=== PATIENT | male | born 1935 | race Caucasian/White ===

== ENCOUNTER 2017-01-14 03:57 | Inpatient (IN) | payer MEDICARE ==
[~2017-01-14] VITALS: Ht 180.3 cm; Wt 96.2 kg
[2017-01-14] VITALS (10 sets, daily range): BP systolic 137–191; BP diastolic 68–94
[~2017-01-14 03:57] MED LIST: AMD200T; AMIO200T2 PO; AMLO5TAB2 PO; AMOX1TAB11 PO; ASCO-262 PO; ASP81CT PO; ATEN1TAB3 PO; ATEN50TA PO; ATN50T PO; ATOR40TA PO; ATOR40TA70 PO; CHLO50TA2; CHOL400T PO; CLD600T; COUMADIN; CYAN10006 PO; DIGO125T PO; ENAL5TAB PO; FENO160T PO; FENO160T12 PO; GARLIC; GLIM2TAB PO; GLIM4TAB PO; INDM25C; INDOMETHACIN; IPRA3AMP INH; LACT1TAB9 PO; LEVO500T69 PO; MISO200T; NIAC1CAP PO; NIAC500T9 PO; NIACIN PO; OMG1KC; PNT40TEC PO; RIVA15TA PO; STRESS TAB; TAMS0.4C2 PO; THIA250T8 PO; TMSL.4C PO; VIT1CAPS9 PO; VITAMIN C PO; WARF-48 PO; WARF5TAB PO; WRF2.5T PO; WRF5T PO; [UNRECOGNIZED DRUG - CODE]
--- OUTSIDE RECORDS SUMMARY | 2017-01-14 04:03 | XMS REPORT | Continuity of Care Document ---
Author Author [facility] Organization [facility] Address Unknown Phone Unavailable Allergies Active Description Code Type Severity Reaction Onset Reported/Identified Relationship to Patient Clinical Status Yes NKANo Known Allergies NKA Miscellaneous Allergy Unknown N/ A 2007 Medications Problems Date Dx Coded Attending Type Code Diagnosis Diagnosed By 04/11/2011 Ot 911.4 INSECT BITE TRUNK 04/11/2011 Ot E000.8 OTHER EXTERNAL CAUSE STATUS 04/11/2011 Ot E849.0 ACCIDENT IN HOME 04/11/2011 Ot E906.4 NONVENOM ARTHROPOD BITE 06/23/2012 Ot 008.8 VIRAL ENTERITIS NOS 06/23/2012 Ot 038.9 SEPTICEMIA NOS 06/23/2012 Ot 041.49 OTHER AND UNSPECIFIED ESCHERICHIA COLI [ 06/23/2012 Ot 250.00 DIAB SMILEY WO COMPL, TYPE II OR UNSPEC TY 06/23/2012 Ot 276.51 DEHYDRATION 06/23/2012 Ot 287.49 OTHER SECONDARY THROMBOCYTOPENIA 06/23/2012 Ot 403.90 HYPTNSV CHR KID DIS, UNSPEC, W CHR KD ST 06/23/2012 Ot 427.31 ATRIAL FIBRILLATION 06/23/2012 Ot 490 BRONCHITIS NOS 06/23/2012 Ot 530.81 ESOPHAGEAL REFLUX 06/23/2012 Ot 585.9 CHRONIC KIDNEY DISEASE, UNSPECIFIED 06/23/2012 Ot 599.0 URIN TRACT INFECTION NOS 06/23/2012 Ot 720.0 ANKYLOSING SPONDYLITIS 06/23/2012 Ot 850.0 CONCUSSION W/O COMA 06/23/2012 Ot 924.11 CONTUSION OF KNEE 06/23/2012 Ot 995.91 SEPSIS 06/23/2012 Ot E000.8 OTHER EXTERNAL CAUSE STATUS 06/23/2012 Ot E849.6 ACCIDENT IN PUBLIC BLDG 06/23/2012 Ot E888.1 FALL STRIKING OBJECT NEC 06/23/2012 Ot E930.5 ADV EFF CEPHALOSPORIN 10/10/2013 FLAQUITA KELLY Ot 250.00 DIAB SMILEY WO COMPL, TYPE II OR UNSPEC TY 10/10/2013 FLAQUITA KELLY N Ot 272.4 HYPERLIPIDEMIA NEC/NOS 10/10/2013 FLAQUITA KELLY N Ot 287.5 THROMBOCYTOPENIA NOS 10/10/2013 FLAQUITA KELLY N Ot 403.90 HYPTNSV CHR KID DIS, UNSPEC, W CHR KD ST 10/10/2013 FLAQUITA KELLY N Ot 427.31 ATRIAL FIBRILLATION 10/10/2013 FLAQUITA KELLY N Ot 530.81 ESOPHAGEAL REFLUX 10/10/2013 FLAQUITA KELLY N Ot 585.9 CHRONIC KIDNEY DISEASE, UNSPECIFIED 10/10/2013 FLAQUITA KELLY N Ot V58.61 ANTICOAGULANTS,LT,CURRENT USE 10/10/2013 FLAQUITA KELLY N Ot V58.69 OTH MED,LT,CURRENT USE 08/19/2014 CALE DE LA GARZA DO Ot 427.31 ATRIAL FIBRILLATION 05/28/2016 Ot 250.00 DIAB SMILEY WO COMPL, TYPE II OR UNSPEC TY 05/28/2016 Ot 272.4 HYPERLIPIDEMIA NEC/NOS 05/28/2016 Ot 401.9 HYPERTENSION NOS 05/28/2016 Ot 786.09 RESPIRATORY ABNORM NEC 05/28/2016 Ot V58.61 ANTICOAGULANTS,LT,CURRENT USE 05/28/2016 Ot V58.69 OTH MED,LT,CURRENT USE 05/28/2016 TRISTON MOHR, LINNETTE Blount Ot 593.9 RENAL URETERAL DIS NOS 05/28/2016 TRISTON MOHR, LINNETTE Blount Ot 287.5 THROMBOCYTOPENIA NOS 05/28/2016 Ot 250.00 DIAB SMILEY WO COMPL, TYPE II OR UNSPEC TY 05/28/2016 Ot 272.4 HYPERLIPIDEMIA NEC/NOS 05/28/2016 Ot 287.5 THROMBOCYTOPENIA NOS 05/28/2016 Ot 403.90 HYPTNSV CHR KID DIS, UNSPEC, W CHR KD ST 05/28/2016 Ot 427.31 ATRIAL FIBRILLATION 05/28/2016 Ot 530.81 ESOPHAGEAL REFLUX 05/28/2016 Ot 585.9 CHRONIC KIDNEY DISEASE, UNSPECIFIED 05/28/2016 Ot V58.61 ANTICOAGULANTS,LT,CURRENT USE 05/28/2016 Ot V58.69 OTH MED,LT,CURRENT USE 05/28/2016 Ot 272.4 HYPERLIPIDEMIA NEC/NOS 05/28/2016 Ot 401.9 HYPERTENSION NOS 05/28/2016 Ot 427.31 ATRIAL FIBRILLATION 05/28/2016 OJ MOHR FAC, ALI FACP CCDS Ot 250.00 DIAB SMILEY WO COMPL, TYPE II OR UNSPEC TY 05/28/2016 OJ MOHR FAC, ALI FACP CCDS Ot 272.4 HYPERLIPIDEMIA NEC/NOS 05/28/2016 OJ MOHR FAC, ALI FACP CCDS Ot 401.9 HYPERTENSION NOS 05/28/2016 OJ MOHR [facility], ALI FACP CCDS Ot 427.31 ATRIAL FIBRILLATION 05/28/2016 OJ MOHR [facility], ALI FACP CCDS Ot V58.61 ANTICOAGULANTS,LT,CURRENT USE 05/28/2016 TRISTON MOHR, LINNETTE Blount Ot 284.19 OTHER PANCYTOPENIA 06/01/2016 ZAC GUPTA MD Ot A41.1 SEPSIS DUE TO OTHER SPECIFIED STAPHYLOCO 06/01/2016 ZAC GUPTA MD Ot D63.1 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 KIDNEY DISEASE 06/01/2016 ZAC GUPTA MD Ot E11.9 TYPE 2 DIABETES MELLITUS WITHOUT COMPLIC 06/01/2016 ZAC GUPTA MD Ot E78.5 HYPERLIPIDEMIA, UNSPECIFIED 06/01/2016 ZAC GUPTA MD Ot E86.0 DEHYDRATION 06/01/2016 ZAC GUPTA MD Ot H91.93 UNSPECIFIED HEARING LOSS, BILATERAL 06/01/2016 ZAC GUPTA MD Ot I08.1 RHEUMATIC DISORDERS OF BOTH MITRAL AND T 06/01/2016 ZAC GUPTA MD Ot I12.9 HYPERTENSIVE CHRONIC KIDNEY DISEASE W ST 06/01/2016 ZAC GUPTA MD Ot I48.0 PAROXYSMAL ATRIAL FIBRILLATION 06/01/2016 ZAC GUPTA MD Ot I65.23 OCCLUSION AND STENOSIS OF BILATERAL [place]ZM[place]N 06/01/2016 ZAC GUPTA MD Ot J18.9 PNEUMONIA, UNSPECIFIED ORGANISM 06/01/2016 ZAC GUPTA MD Ot M45.9 ANKYLOSING SPONDYLITIS OF UNSPECIFIED SI 06/01/2016 ZAC GUPTA MD Ot N17.9 ACUTE KIDNEY FAILURE, UNSPECIFIED 06/01/2016 ZAC GUPTA MD Ot N18.3 CHRONIC KIDNEY DISEASE, STAGE 3 (MODERAT 06/01/2016 ZAC GUPTA MD Ot R65.11 SIRS OF NON-INFECTIOUS ORIGIN W ACUTE OR 06/01/2016 ZAC GUPTA MD Ot S49.91XA UNSP INJURY OF RIGHT SHOULDER AND UPPER 06/01/2016 ZAC GUPTA MD Ot T67.0XXA HEATSTROKE AND SUNSTROKE, INITIAL ENCOUN 06/01/2016 ZAC GUPTA MD Ot W18.09XA STRIKING AGAINST OTH OBJECT W SUBSEQUENT 06/01/2016 ZAC GUPTA MD Ot 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 Visit Date/Time Discharge Status Pt. Type Provider Facility Loc./Unit Complaint [id number] 05/28/2016 05:25:00 2015 13:00:00 DIS Inpatient ZAC GUPTA MD [facility] [address] ACUTE ON CHRONIC RENAL FAILURE,FEVER, TIA [id number] 08/19/2014 17:49:00 2013 20:48:00 DIS Emergency HOLLI DOCALE [facility] ER [id number] 06/24/2014 10:22:00 2013 23:59:59 CLS Outpatient OJ MOHR FACC, RICHI VILLASEÑOR CCDS [facility] CARD [id number] 06/21/2014 11:37:00 2013 23:59:59 CLS Outpatient LINNETTE GOLDSTEIN MD [facility] LAB [id number] 07/12/2013 13:28:00 2012 00:01:00 DIS Outpatient FLAQUITA KELLY [facility] ONC [id number] 06/11/2013 07:33:00 2012 23:59:59 CLS Outpatient LINNETTE GOLDSTEIN MD [facility] RAD [id number] 06/06/2013 10:04:00 2012 23:59:59 CLS Outpatient LINNETTE GOLDSTEIN MD [facility] LAB [id number] 01/14/2017 03:59:00 ACT Emergency HOLLI CALE VALDIVIA [facility] ER POSS STROKE [id number] 06/28/2014 12:43:00 Document Registration [id number] 10/11/2013 00:00:00 Document Registration [id number] 06/20/2012 21:46:00 Document Registration [id number] 05/24/2011 11:36:00 Document Registration [id number] 04/11/2011 18:27:00 Document Registration
[2017-01-14 04:13] LABS: BASOPHILS % (AUTO) 1 % (0-10); EOSINOPHILS % (AUTO) 0 % (0-10); LYMPHOCYTES # (AUTO) 0.8 X 10^3 (1.0-4.0); LYMPHOCYTES % (AUTO) 14 % (12-44); MEAN CORPUSCULAR HEMOGLOBIN 30 PG (25-34); MEAN CORPUSCULAR HGB CONC 33 G/DL (32-36); MEAN CORPUSCULAR VOLUME 90 FL (80-99); MEAN PLATELET VOLUME 9.5 FL (7.4-10.4); MONOCYTES # (AUTO) 0.9 X 10^3 (0.0-1.0); MONOCYTES % (AUTO) 16 % (0-12); NEUTROPHILS % (AUTO) 70 % (42-75); PLATELET COUNT 145 10^3/uL (130-400); RED BLOOD COUNT 4.17 10^6/uL (4.35-5.85); RED CELL DISTRIBUTION WIDTH 15.3 % (10.0-14.5); WHITE BLOOD COUNT 5.6 10^3/uL (4.3-11.0)
--- NOTE | 2017-01-14 04:13 | ED General ---
General Chief Complaint: Neuro-Stroke Like Symptoms Stated Complaint: POSS STROKE Source of Information: Old Records, Spouse (JORDANE DOES ALL TALKING AND SHE IS VERY ANXIOUS AND SOMEWHAT LIMITED HISTORIAN ) Exam Limitations: Other (PT IS SOMNOLENT/LETHARGIC AND NOT TALKING OR FOLLOWING COMMANDS) History of Present Illness Time Seen by Provider: 04:00 Initial Comments PT ARRIVES VIA POV FROM HOME' PT WAS ABLE TO WALK TO CAR WITH FAMILY ASSIST. REPORTS THAT "HE WAS GOING AROUND AND AROUND IN THE BED WITH HIS ARMS AND HIS LEGS AND HE FELL OUT OF BED TWICE" HITTING HIS HEAD ON THE FLOOR TWICE THINKS THIS BEGAN AROUND 0100 THIS AM REPORTS THAT HE WENT TO BED THE NIGHT BEFORE LAST AND THEN HAS BEEN IN BED ALL DAY TODAY/YESTERDAY, GOT UP ONCE AT 1300 YESTERDAY AFTERNOON TO GO TO BATHROOM AND HAD LUNCH. WAS TALKING AT THAT TIME WOULD NOT TAKE HIS EVENING MEDICATIONS OR EAT DINNER AND NOT REALLY TALKING TONIGHT STATES HE HAS HAD WHEEZING FOR THE LAST 1 1/2 WEEKS AND IS NO DIFFERENT TODAY STATES HE SAW POLICYHOLDER INFORMATION CLERK DR. OLMOS YESTERDAY, AND SAW DR. GUPTA THE DAY BEFORE--BOTH FOR ROUTINE EXAMS. XARELTO AND ENALAPRIL WAS DC'D BY POLICYHOLDER INFORMATION CLERK ON 01/12/17-REPORTEDLY DUE TO POOR KIDNEY FUNCTION PER . NO OTHER MEDICATION CHANGES. NO RX'S OR TESTS DONE, PER . STATES THAT PT OCCASIONALLY FALLS--FELL A FEW MONTHS AGO AND INJURED LEFT SHOULDER, THEN HE FELL AGAIN AND FRACTURED HIS PELVIS. PCP: DR. GUPTA Allergies and Home Medications Allergies Coded Allergies: JOANANo Known Allergies (Verified Allergy, Unknown, 01/10/07) Home Medications Amiodarone HCl 200 Mg Tablet 200 MG PO DAILY (Reported) Amlodipine Besylate 5 Mg Tablet 10 MG PO DAILY (Reported) Ascorbate Calcium 500 Mg Tablet 500 MG PO DAILY (Reported) Aspirin 325 Mg Tablet 325 MG PO DAILY (Reported) Atenolol 50 Mg Tablet #30 50 MG PO DAILY Prescribed by: ZAC GUPTA on 06/01/16 0929 Atorvastatin Calcium 40 Mg Tablet 40 MG PO HS (Reported) Cholecalciferol (Vitamin D3) 400 Unit Tablet 400 UNIT PO DAILY (Reported) Cyanocobalamin (Vitamin B-12) 1,000 Mcg Tablet 1,000 MCG PO DAILY (Reported) Ergocalciferol (Vitamin D2) 50,000 Unit Capsule 50,000 UNIT PO WEEK (Reported) Fenofibrate 160 Mg Tablet 160 MG PO DAILY (Reported) Glimepiride 4 Mg Tablet 4 MG PO DAILY@1700 (Reported) Ipratropium/Albuterol Sulfate 3 Ml Ampul.neb #20 3 ML INH RTQ2H PRN PRN SOA Prescribed by: ZAC GUPTA on 06/01/16 0929 Niacin 500 Mg Tablet 500 MG PO DAILY@1700 (Reported) Tamsulosin HCl 0.4 Mg Cap.er.24h 0.4 MG PO DAILY@1700 (Reported) Vit C/Vit E/Lutein/Min/[place]-3 1 Each Capsule 1 CAP PO DAILY (Reported) Constitutional: other (PT UNABLE TO GIVE ANY INFORMATION. ) Past Paznsph-Nknqms-Izarji Hx Patient Social History Recent Foreign Travel: No Contact w/Someone Who Travel: No Recent Hopitalizations: Yes (pneumonia) Immunizations Up To Date Date of Pneumonia Vaccine: Aug 07, 2011 Date of Influenza Vaccine: Aug 17, 2014 Seasonal Allergies Seasonal Allergies: No Surgeries HX Surgeries: Yes (BILATERAL KNEE REPLACEMENTS) Surgeries: Appendectomy, Joint Replacement, Orthopedic Respiratory Hx Respiratory Disorders: Yes Respiratory Disorders: Chronic Bronchitis Cardiovascular Hx Cardiac Disorders: Yes Cardiac Disorders: Atrial Fibrillation, High Cholesterol, Hypertension Neurological Hx Neurological Disorders: No Reproductive System Hx Reproductive Disorders: No Genitourinary Hx Genitourinary Disorders: Yes Genitourinary Disorders: Benign Prostatic Hyperpl, Kidney Stones, Renal Failure Gastrointestinal Hx Gastrointestinal Disorders: No Musculoskeletal Hx Musculoskeletal Disorders: Yes Musculoskeletal Disorders: Arthritis Endocrine Hx Endocrine Disorders: Yes Endocrine Disorders: Diabetes, Non-Insulin dep HEENT HX ENT Disorders: Yes Hearing Impairment: Hard of Hearing Cancer Hx Cancer: No Psychosocial Hx Psychiatric Problems: No Integumentary HX Skin/Integumentary Disorder: No Blood Transfusions Hx Blood Disorders: Yes (reports has seen courtesy clerk for low wbc's,no diagnosis) Physical Exam Vital Signs Vital Sign - Last 12Hours 01/14/17 01/14/17 04:00 04:25 Temp 93.4 Pulse 58 Resp 24 B/P 198/97 Pulse Ox 100 O2 Delivery Nasal Cannula O2 Flow Rate 2 Capillary Refill : General Appearance: WD/WN Mild Distress Other (PT KEEPS EYES CLOSED, IS SOMNOLENT, WITH AUDIBLE WHEEZING. PT IS NOT TALKING OR FOLLOWING COMMANDS OR MOVING ANY EXTREMITIES) Neck: Supple Respiratory: Accessory Muscle Use Respiratory Distress (MILD) Wheezing ( AUDIBLE EXPIRATORY WHEEZING) Cardiovascular: Regular Rate, Rhythm Gastrointestinal: Soft Extremity: Pedal Edema (TRACE TO 1+ EDEMA BILATERALLY) Neurologic/Psychiatric: Other (MENTATION NOTED ABOVE) Skin: Normal Color Warm/Dry Other (MINOR ABRASION TO FORHEAD, AND LARGER ABRASION AND MILD SWELLING TO OCCIPUT. ) Progress/Results/Core Measures Results/Orders Lab Results Laboratory Tests Test 01/14/17 04:04 01/14/17 04:09 01/14/17 04:31 01/14/17 04:40 Range/Units Activated Partial Thromboplast Time 36 H 24-35 SEC Alanine Aminotransferase (ALT/SGPT) 22 0-55 U/L Albumin 3.0 L 3.2-4.5 G/DL Alkaline Phosphatase 51 40-136 U/L Anion Gap 11 5-14 MMOL/L Aspartate Amino Transf (AST/SGOT) 44 H 5-34 U/L B-Type Natriuretic Peptide 203.8 H <100.0 PG/ML BUN/Creatinine Ratio 11 Basophils # (Auto) 0.0 0.0-0.1 10^3/uL Basophils (%) (Auto) 1 0-10 % Blood Urea Nitrogen 28 H 7-18 MG/DL Calcium Level 8.8 8.5-10.1 MG/DL Carbon Dioxide Level 19 L 21-32 MMOL/L Chloride Level 113 H 98-107 MMOL/L Creatine Kinase MB 2.3 <6.6 NG/ML Creatinine 2.63 H 0.60-1.30 MG/DL Digoxin Level < 0.30 L 0.80-2.00 NG/ML Eosinophils # (Auto) 0.0 0.0-0.3 10^3/uL Eosinophils (%) (Auto) 0 0-10 % Estimat Glomerular Filtration Rate 24 Glucose Level 32 *L 70-105 MG/DL Hematocrit 37 L 40-54 % Hemoglobin 12.4 L 13.3-17.7 G/DL INR Comment 1.0 0.8-1.4 Lymphocytes # (Auto) 0.8 L 1.0-4.0 X 10^3 Lymphocytes (%) (Auto) 14 12-44 % Magnesium Level 1.6 L 1.8-2.4 MG/DL Mean Corpuscular Hemoglobin 30 25-34 PG Mean Corpuscular Hemoglobin Concent 33 32-36 G/DL Mean Corpuscular Volume 90 80-99 FL Mean Platelet Volume 9.5 7.4-10.4 FL Monocytes # (Auto) 0.9 0.0-1.0 X 10^3 Monocytes (%) (Auto) 16 H 0-12 % Neutrophils # (Auto) 4.0 1.8-7.8 X 10^3 Neutrophils (%) (Auto) 70 42-75 % Platelet Count 145 130-400 10^3/uL Potassium Level 3.8 3.6-5.0 MMOL/L Prothrombin Time 12.5 12.2-14.7 SEC Red Blood Count 4.17 L 4.35-5.85 10^6/uL Red Cell Distribution Width 15.3 H 10.0-14.5 % Sodium Level 143 135-145 MMOL/L Total Bilirubin 0.4 0.1-1.0 MG/DL Total Creatine Kinase 78 30-200 U/L Total Protein 6.2 L 6.4-8.2 G/DL Troponin I < 0.30 <0.30 NG/ML White Blood Count 5.6 4.3-11.0 10^3/uL Glucometer 35 *L 70-110 MG/DL Lactic Acid Level 0.74 0.50-2.00 MMOL/L Urine Bacteria NEGATIVE /HPF Urine Bilirubin NEGATIVE NEGATIVE Urine Casts NONE /LPF Urine Clarity CLEAR Urine Color YELLOW Urine Crystals NONE /LPF Urine Culture Indicated NO Urine Glucose (UA) NEGATIVE NEGATIVE Urine Ketones NEGATIVE NEGATIVE Urine Leukocyte Esterase NEGATIVE NEGATIVE Urine Mucus NEGATIVE /LPF Urine Nitrite NEGATIVE NEGATIVE Urine Protein 4+ NEGATIVE Urine RBC RARE /HPF Urine RBC (Auto) 2+ H NEGATIVE Urine Specific [place] 1.020 1.016-1.022 Urine Squamous Epithelial Cells RARE /HPF Urine Urobilinogen NORMAL NORMAL MG/DL Urine WBC NONE /HPF Urine pH 5 5-9 Test 01/14/17 04:47 Range/Units Glucometer 107 70-110 MG/DL Micro Results Microbiology 01/14/17 Influenza Types A,B Antigen (JUAN ALBERTO) - Final, Complete My Orders Orders-CALE DE LA GARZA DO Saline Lock/Iv-Start (01/14/17 04:05) Ekg Tracing (01/14/17 04:05) O2 (01/14/17 04:05) Monitor-Rhythm Ecg Trace Only (01/14/17 04:05) Ct Head/Face/Cervical Wo (01/14/17 04:05) BNP (01/14/17 04:05) Cbc With Automated Diff (01/14/17 04:05) Comprehensive Metabolic Panel (01/14/17 04:05) Creatine Kinase (01/14/17 04:05) Creatine Kinase Mb (01/14/17 04:05) Lactic Acid Analyzer (01/14/17 04:05) Magnesium (01/14/17 04:05) Protime With Inr (01/14/17 04:05) Partial Thromboplastin Time (01/14/17 04:05) Troponin I (01/14/17 04:05) Ua Culture If Indicated (01/14/17 04:05) Blood Culture (01/14/17 04:05) Influenza A And B Antigens (01/14/17 04:05) Chest 1 View, Ap/Pa Only (01/14/17 04:05) Albuterol/Ipra Inhalation Soln (Duoneb I (01/14/17 04:15) Dexamethasone Injection (Decadron Inject (01/14/17 04:15) Rt Request For Service (01/14/17 04:05) Svn Sm Volume Nebulizer Rt-Rfs (01/14/17 04:05) Methylprednisolone Sod Succ (Solu-Medrol (01/14/17 04:15) D50w (Emergency) Syringe (Dextrose 50% 5 (01/14/17 04:15) Accucheck Stat ONCE (01/14/17 04:09) Digoxin (01/14/17 04:19) Ekg Tracing (01/14/17 04:23) Accucheck Stat ONCE (01/14/17 04:43) Catheter(Urinary) Insert & Ass 03,15 (01/14/17 04:45) Nothing By Mouth (01/14/17 Breakfast) Accucheck Stat ONCE (01/14/17 04:51) Saline Lock/Iv-Start (01/14/17 04:51) Saline Lock/Iv-Start (01/14/17 04:51) Vital Signs-Stroke Q1H (01/14/17 04:51) Ct Head Wo-R/O Stroke (01/14/17 04:51) O2 (01/14/17 04:51) Intake & Output 06,14,22 (01/14/17 04:51) Dysphagia Screening Tool (01/14/17 04:51) Post Thrombolytic Adminstratio (01/14/17 04:51) Albuterol/Ipra Inhalation Soln (Duoneb I (01/14/17 05:00) Svn Sm Volume Nebulizer Rt-Rfs (01/14/17 04:51) Hansen Cath Insertion (01/14/17 04:58) Enalaprilat Injection (Vasotec Injection (01/14/17 05:30) Nitroglycerin Ointment (Nitrobid Ointme (01/14/17 05:30) Accucheck Stat ONCE (01/14/17 05:23) Enalaprilat Injection (Vasotec Injection (01/14/17 05:25) Ceftriaxone Injection (Rocephin Injectio (01/14/17 05:45) Medications Given in ED Current Medications Medications Dose Ordered Sig/Eloy Route Start Time Stop Time Status Last Admin Dose Admin Albuterol/ Ipratropium 3 ml ONCE ONCE INH 01/14/17 04:15 01/14/17 04:16 DC 01/14/17 04:40 3 ML Dexamethasone Sodium Phosphate 20 mg ONCE ONCE IH 01/14/17 04:15 01/14/17 04:16 DC 01/14/17 04:40 20 MG Dextrose 50 ml ONCE ONCE IV 01/14/17 04:15 01/14/17 05:44 DC 01/14/17 04:10 50 ML Enalaprilat 2.5 mg ONCE ONCE IV 01/14/17 05:30 01/14/17 05:31 DC 01/14/17 05:30 2.5 MG Methylprednisolone Sodium Succinate 125 mg ONCE ONCE IVP 01/14/17 04:15 01/14/17 04:16 DC 01/14/17 04:34 125 MG Nitroglycerin 1 inch ONCE ONCE TOP 01/14/17 05:30 01/14/17 05:31 DC 01/14/17 05:28 1 INCH Vital Signs/I&O Vital Sign - Last 12Hours 01/14/17 01/14/17 01/14/17 01/14/17 04:00 04:00 04:25 04:43 Temp 93.4 Pulse 58 Resp 24 B/P 198/97 Pulse Ox 100 100 O2 Delivery Nasal Cannula O2 Flow Rate 2 2 Progress Note : Progress Note ACCUCHECK 35--GIVEN 1 AMP D50 REPEAT ACCUCHECK 107 0500--PT NOW AWAKE, ALERT, ORIENTED X 3. CONFUSED TO EVENTS OF TONIGHT, PRIOR TO ARRIVAL. MOVING ALL EXTREMITIES WITH EQUAL STRENGTH IN ALL EXTREMITIES. P[T LATER DOES REPORT THAT HE REMEMBERS FALLING OUT OF BED. PT GIVEN DUO NEB TX FOLLOWED BY HOUR LONG NEB TX WITHOUT ANY SIGNIFICANT IMPROVEMENT IN WHEEZING. PT DENIES FEELING SHORT OF BREATH. NO DETERIORATION IN PT'S CONDITION DURING ER STAY ECG Initial ECG Impression Time: 04:06 Initial ECG Rate: 55 Initial ECG Rhythm: Normal Sinus (WITH ARTIFACT) Initial ECG Comparisson: Unchanged Diagnostic Imaging Comments CXR--NO ACUTE PROCESS, PENDING RADIOLOGIST REVIEW CT HEAD/MAXILLOFACIALS/CERVICAL SPINE--NO ACUTE PROCESS, CHRONIC CHANGES--PER [facility] VIA FAX @ [phone] Reviewed: Reviewed by Me Departure Communication Progress Notes 0530--SPOKE WITH DR. GUPTA, ACCEPTS PT FOR ADMIT. Impression Impression: Primary Impression: Altered mental status Additional Impressions: Hypoglycemia S/P FALL OUT OF BED X 2 HEAD CONTUSION X 2 Chronic renal failure NIDDM Hypothermia Chronic atrial fibrillation Uncontrolled hypertension Bronchitis Disposition: 09 ADMITTED INPATIENT Condition: Improved Departure-Patient Inst. Referrals: ZAC GUPTA MD (PCP/Family) Primary Care Physician CALE DE LA GARZA DO Jan 14, 2017 04:13
[2017-01-14] MEDS ORDERED: DEXAMETHASONE 4 MG/ML SDV (DECADRON) IH ONE (04:15)
[2017-01-14] MEDS ORDERED: DEXTROSE 50% 50 ML (IMS) SYR IV ONE (04:15)
[2017-01-14] MEDS ORDERED: RT-ALBUTEROL/IPRATROPIUM 3 ML (DUONEB) VIAL INH ONE ×2 (04:15→05:00)
[2017-01-14] MEDS ORDERED: methylPREDNISolone 125 MG (Solu-MEDROL) VIAL IVP ONE (04:15)
[2017-01-14 04:21] LABS: PROTHROMBIN TIME PATIENT 12.5 SEC (12.2-14.7)
[2017-01-14 04:32] LABS: ALANINE AMINOTRANSFERASE 22 U/L (0-55); ANION GAP 11 MMOL/L (5-14); ASPARTATE AMINO TRANSFERASE 44 U/L (5-34); BILIRUBIN,TOTAL 0.4 MG/DL (0.1-1.0); BLOOD UREA NITROGEN 28 MG/DL (7-18); BUN/CREATININE RATIO 11; CALCIUM 8.8 MG/DL (8.5-10.1); CARBON DIOXIDE 19 MMOL/L (21-32); CHLORIDE 113 MMOL/L (98-107); CREATINE KINASE 78 U/L (30-200); CREATININE SERUM 2.63 MG/DL (0.60-1.30); GFR ESTIMATED 24; MAGNESIUM 1.6 MG/DL (1.8-2.4); POTASSIUM 3.8 MMOL/L (3.6-5.0); SODIUM 143 MMOL/L (135-145); TOTAL PROTEIN 6.2 G/DL (6.4-8.2)
[2017-01-14 04:39] LABS: GLUCOSE 32 MG/DL (70-105); TROPONIN I < 0.30 NG/ML (<0.30)
[2017-01-14] MEDS ORDERED: ASPI-808 PO (04:41)
[2017-01-14] MEDS ORDERED: AMLO5TAB2 PO (05:10)
[2017-01-14] MEDS ORDERED: D50KC PO (05:10)
[2017-01-14 05:18] LABS: BILIRUBIN,URINE NEGATIVE (NEGATIVE); KETONES,URINE NEGATIVE (NEGATIVE); LEUKOCYTE ESTERASE ,URINE NEGATIVE (NEGATIVE); NITRITE,URINE NEGATIVE (NEGATIVE); PH,URINE 5 (5-9); PROTEIN,URINE 4+ (NEGATIVE); UROBILINOGEN,URINE NORMAL (NORMAL)
[2017-01-14] MEDS ORDERED: ENALAPRILAT 2.5 MG/2 ML (VASOTEC) VIAL IV ONE ×2 (05:25→05:30)
[2017-01-14 05:28] LABS: SQUAMOUS EPITHELIAL CELL,UR RARE /HPF
[2017-01-14] MEDS ORDERED: NITROGLYCERIN 2% OINT 1 GM UNIT DOSE PACKET TOP ONE (05:30)
[2017-01-14] MEDS ORDERED: cefTRIAXone INJECTION 1,000 MG in NS (IVPB) 50 ML IV ONE (05:45)
--- NOTE | 2017-01-14 07:09 | Diagnostic Imaging Report ---
INDICATION: CVA. Portable chest 4:33 AM FINDINGS: Heart size and pulmonary vascularity are normal. Lungs are clear. There are no effusions or pneumothoraces. IMPRESSION: Negative chest. Dictated by: Dictated on workstation # [id number]
[2017-01-14] MEDS ORDERED: RT-ALBUTEROL SULF 2.5 MG/3 ML PRE-MIX VIAL INH PRN (07:45)
--- NOTE | 2017-01-14 07:46 | Diagnostic Imaging Report ---
PROCEDURE: CT head, face, and cervical spine without contrast. TECHNIQUE: Multiple contiguous axial images were obtained through the head, neck, and facial bones without the use of intravenous contrast. Sagittal and coronal reformations through the cervical spine and facial bones were also performed. INDICATION: Patient is unresponsive. CT HEAD: The ventricles are normal in size, shape and position. There are no masses or hemorrhages. There are no extra-axial fluid collections. There is calcification in the brainstem which was present on exam from 05/28/2016. IMPRESSION: No acute abnormality seen in the head. No change from 05/28/2016. CT FACIAL BONES: Nasal bones are intact. Paranasal sinuses are intact with only small amounts of fluid seen in the maxillary sinuses. Zygomatic arches are intact. Orbital rims and pappas appear to be intact. Globes appear normal. Mandible appears to be grossly intact. Patient is edentulous. IMPRESSION: Negative facial bones. CT CERVICAL SPINE: Vertebral body height and alignment appear normal. There is diffuse ankylosis of the cervical spine. This is likely due to ankylosing spondylitis. There are no fractures seen. IMPRESSION: Ankylosing spondylitis of the cervical spine. No acute abnormality seen. Dictated by: Dictated on workstation # [id number]
[2017-01-14] MEDS ORDERED: guaiFENesin (MUCINEX) 600 MG TAB PO NR (09:15)
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
[2017-01-14] MEDS ORDERED: ATENOLOL 50 MG (TENORMIN) TAB PO NR (09:30)
[2017-01-14] MEDS ORDERED: amLODIPine 10 MG (NORVASC) TAB PO NR (09:30)
[2017-01-14] MEDS ORDERED: AMIODARONE 200 MG (CORDARONE) TAB PO NR (09:30)
[2017-01-14] MEDS ORDERED: methylPREDNISolone 125 MG (Solu-MEDROL) VIAL IV SCH (10:00)
[2017-01-14] MEDS ORDERED: CYAN250014 PO (10:00)
[2017-01-14] MEDS ORDERED: CALC-696 PO (10:00)
[2017-01-14] MEDS ORDERED: LORA10TA76 PO (10:00)
[2017-01-14] MEDS ORDERED: CHOL500044 PO (10:00)
[2017-01-14] MEDS ORDERED: OMEG1CAP24 PO (10:00)
[2017-01-14] MEDS: ASCORBIC ACID (VIT C) 500 MG TABLET PO SCH (10:11)
[2017-01-14] MEDS: MULTIVIT W/MINERALS TAB (THERAGRAN M) PO SCH (10:11)
[2017-01-14] MEDS: CYANOCOBALAMIN 500 MCG TAB (VITAMIN B-12) PO SCH (10:11)
[2017-01-14] MEDS: methylPREDNISolone 125 MG (Solu-MEDROL) VIAL IV SCH ×3 (10:12→22:02)
[2017-01-14] MEDS: NITROGLYCERIN 2% OINT 1 GM UNIT DOSE PACKET TOP SCH ×2 (11:25→18:12)
[2017-01-14] MEDS ORDERED: ENOXAPARIN 30 MG/0.3 ML (LOVENOX) SYR SC SCH (12:00)
[2017-01-14] MEDS ORDERED: ATEN50TA PO (12:51)
--- NOTE | 2017-01-14 13:57 | Physical Therapy Evaluation ---
PT Evaluation-General Medical Diagnosis Admission Date Jan 14, 2017 at 05:30 Medical Diagnosis: AMS Onset Date: Jan 14, 2017 Therapy Diagnosis Therapy Diagnosis: debility Height/Weight Height (Feet): 5 Height (Inches): 11.00 Weight (Pounds): 216 Weight (Ounces): 5.0 Precautions Precautions/Isolations: Fall Prevention, Standard Precautions Referral Physician: Chava Reason for Referral: Evaluation/Treatment Medical History Pertinent Medical History: Atrial Fib, Arthritis, CAD, COPD, DM, HTN, Renal Insufficiency Additional Medical History bilateral TKR Current History found patient flailing around in bed and fall out of bed. Blood sugar found to be 32, temp 93, HR 40's Reviewed History: Yes Social History Home: Single Level Current Living Status: Spouse Entry Into Home: Level Entry Prior/Core FIM Prior Level of Function Functional [place] Measure 0=Not Assessed/NA 4=Minimal Assistance 1=Total Assistance 5=Supervision or Setup 2=Maximal Assistance 6=Modified [place] 3=Moderate Assistance 7=Complete [place] Bed Mobility: 7 Transfers (B,C,W/C) (FIM): 7 Gait: 7 PT Evaluation-Current Subjective Patient and family agree to PT. No c/o. Pain Numeric Pain Scale: 0-No Pain Location: No Pain Reported Objective Patient Orientation: Normal For Age Problem Solving: Good Attachments: Hansen Catheter ROM/Strength ROM Lower Extremities bilateral LE WFL Strenght Lower Extremities bilateral LE WFL Integumentary/Posture Integumentary refer to nursing notes Bowel Incontinence: No Bladder Incontinence: Hansen Cath Posture trunk flexed posture Neuromuscular (Tone, Coordination, Reflexes) slightly diminished coordination, grossly intact Sensory Vision: Wears Glasses Hearing: Impaired Sensation Right Lower Extremit: Impaired Sensation Left Lower Extremity: Impaired Transfers Functional [place] Measure 0=Not Assessed/NA 4=Minimal Assistance 1=Total Assistance 5=Supervision or Setup 2=Maximal Assistance 6=Modified [place] 3=Moderate Assistance 7=Complete [place] Transfers (B, C, W/C) (FIM): 7 Scootin Rollin Supine to/from Sit: 7 Sit to/from Stand: 7 Gait Mode of Locomotion: Walk Anticipated Mode of Locomotion: Walk Gait (FIM): 7 Distance (FIM): 3=150 ft Distance: 350' Gait Level of Assist: 7 Gait Assistive Device: None Comments/Gait Description safe and functional Balance Sitting Static: Normal Sitting Dynamic: Normal Standing Static: Normal Standing Dynamic: Normal Assessment/Needs 82 y.o. male, is currently at independent PLOF with all gross motor skills and does not require skilled PT intervention at this time. Patient instructed to ambulate PRN with family or staff in hallway. Rehab Potential: Good PT Plan Treatment/Plan Treatment Plan: Discontinue PT Pt/Family Agrees w/Plan: Yes Discharge Recommendations Therapy D/C Recommendations: Home w/ Family Support Time/GCodes Time In: 1320 Time Out: 1335 Total Billed Treatment Time: 15 Total Billed Treatment 1 visit EVLowC 15 min LEE ANN VIRAMONTES PT Jan 14, 2017 13:56
[2017-01-14] MEDS: ALFUZOSIN HCL 10 MG TAB (UROXATRAL) PO SCH (16:37)
[2017-01-14] MEDS: NIACIN 500 MG TABLET PO SCH (16:37)
[2017-01-14] MEDS: RT-ALBUTEROL SULF 2.5 MG/3 ML PRE-MIX VIAL INH SCH (19:59)
[2017-01-14] MEDS: ATORVASTATIN 40 MG (LIPITOR) TABLET PO SCH (22:02)
[2017-01-14] MEDS: FENOFIBRATE 134 MG (LOFIBRA) CAPSULE PO SCH (22:02)
[2017-01-14] MEDS: guaiFENesin (MUCINEX) 600 MG TAB PO SCH (22:02)
[2017-01-15] VITALS (11 sets, daily range): BP systolic 131–169; BP diastolic 68–79
[2017-01-15] MEDS: NITROGLYCERIN 2% OINT 1 GM UNIT DOSE PACKET TOP SCH ×3 (00:48→12:00)
[2017-01-15] MEDS: methylPREDNISolone 125 MG (Solu-MEDROL) VIAL IV SCH (03:50)
[2017-01-15 04:26] LABS: BASOPHILS % (AUTO) 0 % (0-10); EOSINOPHILS % (AUTO) 0 % (0-10); LYMPHOCYTES # (AUTO) 0.3 X 10^3 (1.0-4.0); LYMPHOCYTES % (AUTO) 9 % (12-44); MEAN CORPUSCULAR HEMOGLOBIN 30 PG (25-34); MEAN CORPUSCULAR HGB CONC 33 G/DL (32-36); MEAN CORPUSCULAR VOLUME 90 FL (80-99); MEAN PLATELET VOLUME 10.1 FL (7.4-10.4); MONOCYTES # (AUTO) 0.2 X 10^3 (0.0-1.0); MONOCYTES % (AUTO) 6 % (0-12); NEUTROPHILS # (AUTO) 3.1 X 10^3 (1.8-7.8); NEUTROPHILS % (AUTO) 85 % (42-75); PLATELET COUNT 91 10^3/uL (130-400); RED BLOOD COUNT 3.43 10^6/uL (4.35-5.85); RED CELL DISTRIBUTION WIDTH 15.4 % (10.0-14.5); WHITE BLOOD COUNT 3.6 10^3/uL (4.3-11.0)
[2017-01-15 04:54] LABS: CREATININE SERUM 3.6 MG/DL (0.60-1.30); MAGNESIUM 1.8 MG/DL (1.8-2.4); POTASSIUM 4.3 MMOL/L (3.6-5.0)
[2017-01-15] MEDS ORDERED: cefTRIAXone INJECTION 1,000 MG in NS (IVPB) 50 ML IV SCH (06:00)
[2017-01-15] MEDS: MULTIVIT W/MINERALS TAB (THERAGRAN M) PO SCH (06:48)
[2017-01-15] MEDS: CYANOCOBALAMIN 500 MCG TAB (VITAMIN B-12) PO SCH (06:48)
[2017-01-15] MEDS: ASCORBIC ACID (VIT C) 500 MG TABLET PO SCH (06:48)
[2017-01-15] MEDS: RT-ALBUTEROL SULF 2.5 MG/3 ML PRE-MIX VIAL INH SCH ×2 (07:04→20:05)
[2017-01-15] MEDS: LACTATED RINGERS 1,000 ML IV SCH ×2 (08:22→18:53)
[2017-01-15] MEDS: AMIODARONE 200 MG (CORDARONE) TAB PO SCH (08:23)
[2017-01-15] MEDS: ATENOLOL 50 MG (TENORMIN) TAB PO SCH (08:23)
[2017-01-15] MEDS: guaiFENesin (MUCINEX) 600 MG TAB PO SCH ×2 (08:23→20:12)
[2017-01-15] MEDS: amLODIPine 10 MG (NORVASC) TAB PO SCH (08:23)
--- NOTE | 2017-01-15 09:09 | Diagnostic Imaging Report ---
INDICATION: Bronchitis. Comparison made with prior examination from 01/14/17. FINDINGS: There's cardiomegaly. There is mild venous congestion. There is a left upper lobe infiltrate suspect for pneumonia. There is no pleural effusion or pneumothorax. The mediastinum is unremarkable. IMPRESSION: Left upper lobe infiltrate suspect for pneumonia. Cardiomegaly and mild central pulmonary venous congestion. Dictated by: Dictated on workstation # [id number]
--- NOTE | 2017-01-15 11:17 | Progress Note (SOAP) ---
Subjective Subjective/Events-last exam cc: acute metabolic encephalopathy -82 yo M reports doing well. He was having a bowel movement this AM and on my return was eating breakfast- No complaints this AM. Review of Systems General: No Chills, No Night Sweats HEENT: No Head Aches Pulmonary: No Dyspnea, No Cough Cardiovascular: No: Chest Pain, Palpitations Gastrointestinal: No: Abdominal Pain, Nausea, Vomiting Genitourinary: No Dysuria Musculoskeletal: No: neck pain, shoulder pain Neurological: No: Numbness, Weakness Objective Exam Vital Signs Date Time Temp Pulse Resp B/P Pulse Ox O2 Delivery O2 Flow Rate FiO2 01/15/17 08:34 94 01/15/17 08:00 98.1 78 20 149/77 94 Room Air 01/15/17 07:04 95 01/15/17 07:00 71 01/15/17 06:00 68 18 144/72 93 01/15/17 05:00 69 18 143/71 95 01/15/17 04:00 96 01/15/17 04:00 69 19 135/72 93 01/15/17 03:00 71 21 135/68 93 01/15/17 02:00 75 18 141/74 92 01/15/17 01:00 77 20 147/72 92 01/15/17 00:32 75 01/15/17 00:00 80 20 148/74 93 01/15/17 00:00 96 01/14/17 23:00 82 19 137/83 94 01/14/17 22:00 81 20 166/73 01/14/17 21:00 81 19 163/68 01/14/17 20:00 97.5 77 13 148/72 01/14/17 20:00 96 01/14/17 19:20 80 01/14/17 19:00 77 28 148/84 01/14/17 18:00 85 22 140/80 01/14/17 16:25 96 01/14/17 16:25 99.4 01/14/17 16:00 82 18 182/88 96 01/14/17 13:44 93 01/14/17 12:00 93 I & O 01/15/17 07:00 Intake Total 1790 ml Output Total 1350 ml Balance 440 ml Capillary Refill : Less Than 3 Seconds General Appearance: No Apparent Distress WD/WN HEENT: Other (hard of hearing) Neck: Non Tender Respiratory: Chest Non Tender Lungs Clear Normal Breath Sounds No Accessory Muscle Use No Respiratory Distress Cardiovascular: Other (irregular rhythm, regular rate) Gastrointestinal: non tender soft Extremity: Other (MCBRIDE) Neurologic/Psychiatric: Alert Oriented x3 Normal Mood/Affect Skin: Warm/Dry Results Lab Laboratory Tests 01/14/17 16:38: Glucometer 277H 01/15/17 03:45: Anion Gap 11, BUN/Creatinine Ratio 13, Basophils # (Auto) 0.0, Basophils (%) ( Auto) 0, Blood Urea Nitrogen 48H, Calcium Level 8.0L, Carbon Dioxide Level 17L, Chloride Level 109H, Creatinine 3.60H, Eosinophils # (Auto) 0.0, Eosinophils (% ) (Auto) 0, Estimat Glomerular Filtration Rate 16, Glucose Level 319H, Hematocrit 31L, Hemoglobin 10.2L, Lymphocytes # (Auto) 0.3L, Lymphocytes (%) ( Auto) 9L, Magnesium Level 1.8, Mean Corpuscular Hemoglobin 30, Mean Corpuscular Hemoglobin Concent 33, Mean Corpuscular Volume 90, Mean Platelet Volume 10.1, Monocytes # (Auto) 0.2, Monocytes (%) (Auto) 6, Neutrophils # (Auto) 3.1, Neutrophils (%) (Auto) 85H, Phosphorus Level 4.0, Platelet Count 91L, Potassium Level 4.3, Red Blood Count 3.43L, Red Cell Distribution Width 15.4H, Sodium Level 137, White Blood Count 3.6L Microbiology 01/14/17 Influenza Types A,B Antigen (JUAN ALBERTO) - Final, Complete Assessment/Plan Assessment/Plan Assess & Plan/Chief Complaint 82 yo M Acute metabolic encephalopathy- likely multifactorial- definitely hypoglycemia - resolved. Severe hypoglycemia- d/c sulfonylurea- likely not cleared by kidneys efficiently Acute on Chronic kidney disease- stage IV- IVF LR @100cc/hr d/c'd lovenox, avoid MCKENNA, NSAIDS, contrast- baseline Cr 2.3 Hypertensive urgency- continue bp meds, hydralazine- much improved pancytopenia- monitor cbc atrial fibrillation- stable. CAD- stable COPD- on room air. d/c'd iv methylprednisolone- dexamethasone 10mg 01/14/17 Dispo: LR @100cc/hr; rechecking BMP at 1600hr- if improving will turn IVF to 75cc/hr- mental status much improved- if respiratory status stays stable with fluids and Cr improves will transfer to floor in AM. Clinical Quality Measures DVT/VTE Risk/Contraindication: Risk Factor Score Per Nursin RFS Level Per Nursing on Admit: 3=High Stroke: Date of last known well: Jan 13, 2017 GIANA WIN MD Jan 15, 2017 11:17
[2017-01-15] MEDS: inSUlin ASPART (NovoLOG) 1 UNIT/0.01 ML (CHARGE PER UNIT) SC SCH ×3 (12:20→22:00)
[2017-01-15] MEDS ORDERED: DEXAMETHASONE 4 MG TAB (DECADRON) PO NR (15:00)
[2017-01-15 16:16] LABS: CALCIUM 8.1 MG/DL (8.5-10.1); CREATININE SERUM 3.62 MG/DL (0.60-1.30); POTASSIUM 4.5 MMOL/L (3.6-5.0)
[2017-01-15] MEDS: NIACIN 500 MG TABLET PO SCH (17:44)
[2017-01-15] MEDS: ALFUZOSIN HCL 10 MG TAB (UROXATRAL) PO SCH (17:44)
[2017-01-15] MEDS: FENOFIBRATE 134 MG (LOFIBRA) CAPSULE PO SCH (20:12)
[2017-01-15] MEDS: ATORVASTATIN 40 MG (LIPITOR) TABLET PO SCH (20:12)
[2017-01-15] MEDS ORDERED: NS IV 500 ML 500 ML IV ONE (20:15)
[2017-01-15] MEDS ORDERED: guaiFENesin (MUCINEX) 600 MG TAB PO SCH (21:00)
[2017-01-16] VITALS: BP 152/76
[2017-01-16 04:00] VITALS: BP 139/60
[2017-01-16 04:36] LABS: BASOPHILS % (AUTO) 0 % (0-10); EOSINOPHILS % (AUTO) 0 % (0-10); LYMPHOCYTES # (AUTO) 0.4 X 10^3 (1.0-4.0); LYMPHOCYTES % (AUTO) 8 % (12-44); MEAN CORPUSCULAR HEMOGLOBIN 30 PG (25-34); MEAN CORPUSCULAR HGB CONC 33 G/DL (32-36); MEAN CORPUSCULAR VOLUME 90 FL (80-99); MEAN PLATELET VOLUME 10.6 FL (7.4-10.4); MONOCYTES # (AUTO) 0.3 X 10^3 (0.0-1.0); MONOCYTES % (AUTO) 5 % (0-12); NEUTROPHILS # (AUTO) 4.3 X 10^3 (1.8-7.8); NEUTROPHILS % (AUTO) 87 % (42-75); PLATELET COUNT 102 10^3/uL (130-400); RED CELL DISTRIBUTION WIDTH 14.9 % (10.0-14.5); WHITE BLOOD COUNT 4.9 10^3/uL (4.3-11.0)
[2017-01-16 04:54] LABS: CALCIUM 7.9 MG/DL (8.5-10.1); CREATININE SERUM 3.56 MG/DL (0.60-1.30); MAGNESIUM 1.8 MG/DL (1.8-2.4); PHOSPHORUS 4.1 MG/DL (2.3-4.7); POTASSIUM 4.7 MMOL/L (3.6-5.0)
[2017-01-16] MEDS: inSUlin ASPART (NovoLOG) 1 UNIT/0.01 ML (CHARGE PER UNIT) SC SCH ×4 (05:01→21:09)
[2017-01-16] MEDS: LACTATED RINGERS 1,000 ML IV SCH (05:56)
[2017-01-16] MEDS: ASCORBIC ACID (VIT C) 500 MG TABLET PO SCH (05:56)
[2017-01-16] MEDS: CYANOCOBALAMIN 500 MCG TAB (VITAMIN B-12) PO SCH (05:56)
[2017-01-16] MEDS: MULTIVIT W/MINERALS TAB (THERAGRAN M) PO SCH (05:56)
[2017-01-16] MEDS: RT-ALBUTEROL SULF 2.5 MG/3 ML PRE-MIX VIAL INH SCH ×4 (07:10→18:55)
[2017-01-16 08:00] VITALS: BP 135/59
[2017-01-16] MEDS: ATENOLOL 50 MG (TENORMIN) TAB PO SCH (08:11)
[2017-01-16] MEDS: amLODIPine 10 MG (NORVASC) TAB PO SCH (08:11)
[2017-01-16] MEDS: guaiFENesin (MUCINEX) 600 MG TAB PO SCH ×2 (08:11→21:08)
[2017-01-16] MEDS: AMIODARONE 200 MG (CORDARONE) TAB PO SCH (08:11)
--- NOTE | 2017-01-16 10:27 | Progress Note (SOAP) ---
Subjective Subjective/Events-last exam cc: hypoglycemia, acute on chronic kidney disease 82 yo M reports this AM he feels much better than admission and continues to improve. Ate nearly all his breakfast. Feels like he is breathing well. Does have a cough. No issues with urinating or BM. He has no questions or concerns. Review of Systems General: No Chills, No Night Sweats HEENT: No Head Aches, No Eye Pain Pulmonary: No Dyspnea, Cough Cardiovascular: No: Chest Pain, Palpitations Gastrointestinal: No: Abdominal Pain, Nausea, Vomiting Genitourinary: No Dysuria Musculoskeletal: No: shoulder pain Neurological: No: Numbness, Weakness Objective Exam Vital Signs Date Time Temp Pulse Resp B/P Pulse Ox O2 Delivery O2 Flow Rate FiO2 01/16/17 08:00 98.7 62 17 135/59 96 Room Air 01/16/17 07:20 93 01/16/17 07:13 93 01/16/17 07:00 61 01/16/17 04:00 65 23 139/60 91 Room Air 01/16/17 04:00 96 01/16/17 01:00 65 01/16/17 00:00 96 01/16/17 00:00 69 24 152/76 94 Room Air 01/15/17 20:05 94 01/15/17 20:00 67 17 131/68 92 Room Air 01/15/17 20:00 96 01/15/17 19:00 69 01/15/17 15:53 98.9 70 20 169/78 96 Room Air 01/15/17 15:08 96 01/15/17 13:00 77 01/15/17 12:21 94 01/15/17 12:21 98.2 68 18 155/79 94 Room Air I & O 01/16/17 07:00 Intake Total 3620 ml Output Total 1500 ml Balance 2120 ml Capillary Refill : Less Than 3 Seconds General Appearance: No Apparent Distress HEENT: PERRL/EOMI Neck: Non Tender Supple Respiratory: Chest Non Tender Rhonci (throughout- good air movement - easy breathing no apparent distress.) Wheezing Cardiovascular: Regular Rate, Rhythm Other (systolic murmur ii/vi) Gastrointestinal: normal bowel sounds non tender soft Extremity: Normal Range of Motion Non Tender Neurologic/Psychiatric: Alert Oriented x3 Normal Mood/Affect Skin: Warm/Dry Results Lab Laboratory Tests 01/15/17 12:18: Glucometer 273H 01/15/17 15:47: Anion Gap 12, BUN/Creatinine Ratio 15, Blood Urea Nitrogen 56H, Calcium Level 8.1L, Carbon Dioxide Level 15L, Chloride Level 109H, Creatinine 3.62H, Estimat Glomerular Filtration Rate 16, Glucose Level 133H, Potassium Level 4.5, Sodium Level 136 01/15/17 15:53: Glucometer 118H 01/15/17 23:13: Glucometer 219H 01/16/17 04:10: Anion Gap 9, BUN/Creatinine Ratio 18, Basophils # (Auto) 0.0, Basophils (%) ( Auto) 0, Blood Urea Nitrogen 63H, Calcium Level 7.9L, Carbon Dioxide Level 17L, Chloride Level 110H, Creatinine 3.56H, Eosinophils # (Auto) 0.0, Eosinophils (% ) (Auto) 0, Estimat Glomerular Filtration Rate 17, Glucose Level 184H, Hematocrit 29L, Hemoglobin 9.5L, Lymphocytes # (Auto) 0.4L, Lymphocytes (%) ( Auto) 8L, Magnesium Level 1.8, Mean Corpuscular Hemoglobin 30, Mean Corpuscular Hemoglobin Concent 33, Mean Corpuscular Volume 90, Mean Platelet Volume 10.6H, Monocytes # (Auto) 0.3, Monocytes (%) (Auto) 5, Neutrophils # (Auto) 4.3, Neutrophils (%) (Auto) 87H, Phosphorus Level 4.1, Platelet Count 102L, Potassium Level 4.7, Red Blood Count 3.20L, Red Cell Distribution Width 14.9H, Sodium Level 136, Uric Acid 8.6H, White Blood Count 4.9 Microbiology 01/14/17 Blood Culture - Preliminary, Resulted No growth 01/14/17 MRSA Screen - Final, Complete MRSA not isolated Assessment/Plan Assessment/Plan Assess & Plan/Chief Complaint 82 yo M Acute metabolic encephalopathy- likely multifactorial- definitely hypoglycemia - resolved. Severe hypoglycemia- d/c sulfonylurea- likely not cleared by kidneys efficiently- normal blood sugars. Acute on Chronic kidney disease- stage IV- IVF NS @100cc/hr d/c'd lovenox, avoid MCKENNA, NSAIDS, contrast- baseline Cr 2.3- Cr 3.5 this AM- starting to trend down. rechecking BMP Uric acid 8.4 Hypertensive urgency- continue bp meds, hydralazine- much improved pancytopenia- monitor cbc atrial fibrillation- stable. CAD- stable COPD- on room air. dexamethasone 10mg 01/14/17 - iv methylprednisolone 40mg BID IV- Dispo: NS @100cc/hr; rechecking BMP at 1600hr- Uric acid elevated- still needs IVF. Appears Cr has peaked and now is starting to come back down- UOP improving , kidneys seem to be recovering. Monitor respiratory status- Transfer to floor. Clinical Quality Measures DVT/VTE Risk/Contraindication: Risk Factor Score Per Nursin RFS Level Per Nursing on Admit: 3=High Stroke: Date of last known well: Jan 13, 2017 GIANA WIN MD Jan 16, 2017 10:27
[2017-01-16] MEDS: methylPREDNISolone 40 MG/ML (Solu-MEDROL) VIAL IV SCH ×2 (11:16→21:07)
[2017-01-16] MEDS: NS IV 1000 ML 1,000 ML IV SCH ×3 (11:16→20:59)
[2017-01-16 12:26] VITALS: BP 154/72
--- NOTE | 2017-01-16 12:51 | Diagnostic Imaging Report ---
INDICATION: Bronchitis. TECHNIQUE: Single view chest 5:40 AM. CORRELATION STUDY: 01/15/2017 FINDINGS: Heart size enlarged. Vasculature is slightly prominent but appears to be less severe from prior study. The previously noted infiltrate left upper lobe has improved and essentially resolved on followup. Lung blum overall generally clear. IMPRESSION: 1. Cardiac enlargement. Vasculature is improved since prior study. 2. Previously noted infiltrate-like density over the left upper lobe is essentially resolved. Dictated by: Dictated on workstation # [id number]
[2017-01-16 16:00] VITALS: BP 165/80
[2017-01-16 16:47] LABS: CALCIUM 8.1 MG/DL (8.5-10.1); CREATININE SERUM 3.51 MG/DL (0.60-1.30)
[2017-01-16] MEDS: ALFUZOSIN HCL 10 MG TAB (UROXATRAL) PO SCH (16:56)
[2017-01-16] MEDS: NIACIN 500 MG TABLET PO SCH (16:56)
[2017-01-16 20:00] VITALS: BP 125/67
[2017-01-16] MEDS: ATORVASTATIN 40 MG (LIPITOR) TABLET PO SCH (21:08)
[2017-01-16] MEDS: FENOFIBRATE 134 MG (LOFIBRA) CAPSULE PO SCH (21:08)
[2017-01-17 00:10] VITALS: BP 167/78
[2017-01-17 01:06] VITALS: BP 164/75
[2017-01-17 04:41] VITALS: BP 144/84
[2017-01-17 05:50] LABS: BASOPHILS % (AUTO) 0 % (0-10); EOSINOPHILS % (AUTO) 0 % (0-10); LYMPHOCYTES # (AUTO) 0.3 X 10^3 (1.0-4.0); LYMPHOCYTES % (AUTO) 8 % (12-44); MEAN CORPUSCULAR HEMOGLOBIN 30 PG (25-34); MEAN CORPUSCULAR HGB CONC 33 G/DL (32-36); MEAN CORPUSCULAR VOLUME 90 FL (80-99); MEAN PLATELET VOLUME 10.4 FL (7.4-10.4); MONOCYTES # (AUTO) 0.2 X 10^3 (0.0-1.0); MONOCYTES % (AUTO) 4 % (0-12); NEUTROPHILS # (AUTO) 3.3 X 10^3 (1.8-7.8); NEUTROPHILS % (AUTO) 88 % (42-75); PLATELET COUNT 108 10^3/uL (130-400); RED BLOOD COUNT 3.41 10^6/uL (4.35-5.85); RED CELL DISTRIBUTION WIDTH 14.8 % (10.0-14.5); WHITE BLOOD COUNT 3.7 10^3/uL (4.3-11.0)
[2017-01-17] MEDS: inSUlin ASPART (NovoLOG) 1 UNIT/0.01 ML (CHARGE PER UNIT) SC SCH (06:00)
[2017-01-17 06:05] LABS: CALCIUM 7.9 MG/DL (8.5-10.1); CREATININE SERUM 3.6 MG/DL (0.60-1.30); PHOSPHORUS 4.9 MG/DL (2.3-4.7); POTASSIUM 4.9 MMOL/L (3.6-5.0)
[2017-01-17] MEDS: CYANOCOBALAMIN 500 MCG TAB (VITAMIN B-12) PO SCH (06:44)
[2017-01-17] MEDS: ASCORBIC ACID (VIT C) 500 MG TABLET PO SCH (06:44)
[2017-01-17] MEDS: MULTIVIT W/MINERALS TAB (THERAGRAN M) PO SCH (06:48)
[2017-01-17] MEDS: NS IV 1000 ML 1,000 ML IV SCH (07:08)
[2017-01-17] MEDS: RT-ALBUTEROL SULF 2.5 MG/3 ML PRE-MIX VIAL INH SCH ×2 (07:29→10:25)
[2017-01-17 07:49] VITALS: BP 171/77
[2017-01-17] MEDS: amLODIPine 10 MG (NORVASC) TAB PO SCH (08:11)
[2017-01-17] MEDS: guaiFENesin (MUCINEX) 600 MG TAB PO SCH (08:11)
[2017-01-17] MEDS: methylPREDNISolone 40 MG/ML (Solu-MEDROL) VIAL IV SCH (08:12)
[2017-01-17] MEDS: ATENOLOL 50 MG (TENORMIN) TAB PO SCH (08:12)
[2017-01-17] MEDS: AMIODARONE 200 MG (CORDARONE) TAB PO SCH (08:12)
[2017-01-17] MEDS ORDERED: amLODIPine 5 MG (NORVASC) TAB PO SCH (09:00)
--- NOTE | 2017-01-17 09:17 | Discharge Summary ---
Diagnosis/Chief Complaint Date of Admission Jan 14, 2017 at 05:30 Date of Discharge Discharge Date: Jan 17, 2017 Admission Diagnosis Admission Diagnosis SEVERE HYPOGLYCEMIC EPISODE HYPERTENSIVE URGENCY CHRONIC RENAL FAILURE - STAGE 4 RENAL FAILURE ATRIAL FIBRILLATION FALLING EPISODE AT HOME CONFUSION/MENTAL STATUS CHANGE - TRANSIENT CORONARY ARTERY DISEASE COPD Discharge Diagnosis SEVERE HYPOGLYCEMIC EPISODE HYPERTENSIVE URGENCY CHRONIC RENAL FAILURE - STAGE 4 RENAL FAILURE ATRIAL FIBRILLATION FALLING EPISODE AT HOME CONFUSION/MENTAL STATUS CHANGE - TRANSIENT CORONARY ARTERY DISEASE COPD Reason Hospital Visit PT IS AN 82 Y/O MALE WHO IS KNOWN TO ME FROM CLINIC. HIS REPORTS THAT YESTERDAY HE DID NOT GET UP UNTIL AROUND NOON - NOT UNUSUAL FOR HIM. SHE REPORTS THAT HE ATE A GOOD LUNCH, TOOK HIS MEDICATIONS, AND THEN SHORTLY THEREAFTER HE WENT TO BED. SHE REPORTS THAT AT AROUND 6PM, HE STARTED FLAILING AROUND IN THE BED, LITTERALLY MOVING HIS BODY ALL OVER THE BED (SPINNING AROUND) UNTIL HIS LEGS WERE FALLING OFF THE SIDE OF THE BED, SHE GOT HIM STRAIGHTENED BACK UP, THEN HE FELL OUT OF BED. SHE STATES THAT SHE LEFT HIM ON THE GROUND FOR ABOUT AN HOUR, PUT A PILLOW UNDER HIS HEAD, THEN HE GOT UP, SAID, "WHAT AM I DOING DOWN HERE", THEN HE GOT BACK INTO BED. HE STARTED MOVING AROUND ALL OVER THE BED AGAIN AND FELL OUT, SHE THEN GOT THE FAMILY TO HELP GET HIM UP AND HE WAS CLAMMY, CONFUSED AND SHE TOOK HIM TO THE EMERGENCY DEPT. HE WAS FOUND TO HAVE A BLOOD SUGAR OF 32. HIS DAUGHTER STATES THAT HE DID NOT CHECK HIS FSBS YESTERDAY AT ALL AND THAT IS UNUSUAL FOR HIM. SHE ALSO STATES THAT THE LAST TIME HE WAS DISCHARGED FOR A SHORT STAY IN THE HOSPITAL, HE WAS DISCHARGED WITH NEBULIZER TREATMENTS, BUT NO NEBULIZER WAS PRESCRIBED. SHE THINKS THAT HE WOULD BENEFIT FROM BREATHING TREATMENTS AT HOME. Discharge Summary Discharge Physical Examination Allergies: Coded Allergies: No Known Drug Allergies (Unverified , 01/14/17) Vitals & I&Os Vital Signs Date Time Temp Pulse Resp B/P Pulse Ox O2 Delivery O2 Flow Rate FiO2 01/17/17 07:49 96.1 62 171/77 95 Room Air 01/17/17 04:41 22 01/16/17 20:15 2.00 General Appearance: Alert, Oriented X3, Cooperative, No Acute Distress HEENT: Atraumatic, PERRLA Respiratory: Other (wheezing throughout) Cardiovascular: Regular Rate Abdominal: Normal Bowel Sounds, Soft Extremities: No Clubbing Skin: No Rashes, No Breakdown Neuro: Normal Speech, Strength at 5/5 X4 Ext, Cranial Nerves 3-12 NL Psych/Mental Status: Mental Status NL, Mood NL Hospital Course SEVERE HYPOGLYCEMIC EPISODE HYPERTENSIVE URGENCY CHRONIC RENAL FAILURE - STAGE 4 RENAL FAILURE ATRIAL FIBRILLATION FALLING EPISODE AT HOME CONFUSION/MENTAL STATUS CHANGE - TRANSIENT CORONARY ARTERY DISEASE COPD PT STARTED ON CLEAR LIQUIDS - THEN ADVANCED DIET TO 1800KCAL DIET. HYPOGLYCEMIA WITH CURRENT DX OF DM - STOPPED HOME MEDICATIONS FOR DIABETES. - MONITOR FSBS, DISCUSSED APPROPRIATE SPACING OF MEDICATIONS PT HAS BEEN TAKING HIS MEDS AT NOON AND 7PM. PT TO CHECK FSBS THREE TIMES DAILY X 10 DAYS, BRING TO OFFICE IN TEN DAYS - MAY NEED TO CONSIDER AN INJECTABLE MEDICATION/INSULIN OUTPATIENT. HTN - HYPERTENSIVE URGENCY - INCREASE ANTIHYPERTENSIVES - STARTED ON HYDRALAZINE, - DECREASE NORVASC BACK DOWN TO 5MG, INCREASE HYDRALAZINE FROM 10MG QID TO 25MG TID. CHRONIC RENAL FAILURE - INCREASED CREATININE AT 3.6 - PT IS ABOUT 1 POINT ABOVE NORMAL - WILL DISCHARGE PT TO HOME, CHECK LABS ON TUESDAY - - SUPPORTIVE CARE, ADJUST MEDICATIONS ACCORDINGLY. - WILL SEND COPY OF LABS TO [facility] INSIDE [facility]INDER DR. OLMOS. MENTAL STATUS CHANGES - IMPROVED/RESOLVED. COPD - STARTED ON SCHEDULED BREATHING TREATMENTS, MUCINEX, PD AND C TO BE TAUGHT TO PT'S . PT ALSO ON STEROIDS - STOP STEROIDS - CONTINUE WITH BREATHING TREATMENTS OUTPATIENT. Pending Labs Laboratory Tests 01/17/17 05:28: Anion Gap 10, BUN/Creatinine Ratio 19, Basophils # (Auto) 0.0, Basophils (%) ( Auto) 0, Blood Urea Nitrogen 70, Calcium Level 7.9, Carbon Dioxide Level 16, Chloride Level 113, Creatinine 3.60, Eosinophils # (Auto) 0.0, Eosinophils (%) ( Auto) 0, Estimat Glomerular Filtration Rate 16, Glucose Level 184, Hematocrit 31 , Hemoglobin 10.1, Lymphocytes # (Auto) 0.3, Lymphocytes (%) (Auto) 8, Magnesium Level 2.0, Mean Corpuscular Hemoglobin 30, Mean Corpuscular Hemoglobin Concent 33, Mean Corpuscular Volume 90, Mean Platelet Volume 10.4, Monocytes # (Auto) 0.2, Monocytes (%) (Auto) 4, Neutrophils # (Auto) 3.3, Neutrophils (%) (Auto) 88, Phosphorus Level 4.9, Platelet Count 108, Potassium Level 4.9, Red Blood Count 3.41, Red Cell Distribution Width 14.8, Sodium Level 139, White Blood Count 3.7 Discharge Condition at discharge improved Instructions to patient/family Please see electonic discharge instructions given to patient. Discharge Medications Reviewed and agree with Discharge Medication list on patient's Discharge Instruction sheet Clinical Quality Measures DVT/VTE Risk/Contraindication: Risk Factor Score Per Nursin RFS Level Per Nursing on Admit: 3=High Stroke: Date of last known well: Jan 13, 2017 ZAC GUPTA MD Jan 17, 2017 09:17
[2017-01-17] MEDS ORDERED: HYDR-3922 PO (09:23)
[2017-01-17] MEDS ORDERED: ALBU2.5V4 INH (09:23)
[2017-01-17] MEDS ORDERED: NEBU1KIT3 MC (09:23)
[2017-01-17] MEDS ORDERED: AMLO10TA2 PO (09:23)
[2017-01-17] MEDS ORDERED: [UNRECOGNIZED DRUG - CODE] MC (09:23)
[2017-01-17] MEDS ORDERED: BREO ELLIPTA IH SCH (09:24)
--- NOTE | 2017-01-17 09:27 | Discharge Inst-Complex ---
PDI Med Rec & Follow Up Appt. New Medications: Mucus Clearing Device (Aerobika) 1 Each Each 1 EACH QID USE WITH NEBULIZER MACHINE Shortness of Breath #1 Nebulizer (Compact Compressor Nebulizer) 1 Each Each 1 EACH QID USE WITH NEBULIZER MEDICATION FOR DECREASE IN WHEEZING, IMPROVED BREATHING Shortness of Breath #1 Albuterol Sulfate (Albuterol Sulfate) 2.5 Mg/3 Ml Vial.neb 2.5 MG INH RTQID #120 Ref 6 INHALER Amlodipine Besylate (Amlodipine Besylate) 10 Mg Tablet 5 MG PO DAILY #30 Ref 6 TAB Hydralazine HCl (Hydralazine HCl) 10 Mg Tablet 25 MG PO Q8HR #90 Ref 6 TAB Continued Medications: Amiodarone HCl (Amiodarone HCl) 200 Mg Tablet 200 MG PO DAILY Ascorbate Calcium (Vitamin C) 500 Mg Tablet 500 MG PO DAILY TAB Aspirin (Aspirin) 325 Mg Tablet 325 MG PO DAILY TAB Atenolol (Atenolol) 50 Mg Tablet 50 MG PO DAILY TAB Atorvastatin Calcium (Atorvastatin Calcium) 40 Mg Tablet 40 MG PO HS LAST FILLED 09/05/16 #90 Calcium Citrate/Vitamin D3 (Citracal + D Maximum Caplet) 1 Each Tablet 1 EACH PO BID TAB Cholecalciferol (Vitamin D3) (Vitamin D3) 5,000 Unit Tablet 5000 UNIT PO DAILY TAB Cyanocobalamin (Vitamin B-12) (Vitamin B-12) 1,000 Mcg Tablet 1000 MCG PO DAILY TAB Fenofibrate (Fenofibrate) 160 Mg Tablet 160 MG PO DAILY Loratadine (Claritin) 10 Mg Tablet 10 MG PO DAILY TAB Niacin (Niacin) 500 Mg Tablet 500 MG PO DAILY@1700 TAB Tamsulosin HCl (Tamsulosin HCl) 0.4 Mg Cap.er.24h 0.4 MG PO DAILY@1700 LAST FILLED 09/13/16 #90 Vit C/Vit E/Lutein/Min/[place]-3 (Ocuvite Softgel) 1 Each Capsule 1 CAP PO DAILY CAP Discontinued Medications: Amlodipine Besylate (Amlodipine Besylate) 5 Mg Tablet 10 MG PO DAILY TAB Prescription: Transmitted to Pharmacy Patient Instructions: GET LABS ON 01/21/17 AT [facility] APPT WITH ALONSO AROUND 01/24/17 OR 01/25/17 Activity, Diet and PDI Resume Normal Activity: Yes Discharge Diet: Other Diet (RENAL DIET, DIABETIC DIET) Drink 6-8 Glasses of Fluid/Day: Yes Driving Instructions: No Driving for 1 Week Symptoms to Reoprt to : Appetite Changes, Fever Over 101 Degrees F, Pain/ Pressure in Chest, Cough Up/Vomit Blood, Lightheadedness, Shortness of Breath For Problems or Questions: Contact Your Physician, Go to Emergency Room ZAC GUPTA MD Jan 17, 2017 09:27
--- NOTE | 2017-01-17 10:02 | Diagnostic Imaging Report ---
INDICATION: Bronchitis. COMPARISON: 01/16/2017. FINDINGS: Patchy linear opacities in the right lung are unchanged. No new airspace disease in the visible lungs. Please note posterior lower lobes are poorly evaluated by portable radiography. No pleural effusion or pneumothorax. Stable borderline cardiomegaly. Normal pulmonary vasculature. IMPRESSION: Patchy linear opacities in the right lung are unchanged and likely due to atelectasis or scar. Atypical infectious process could have this appearance in the appropriate clinical setting. Dictated by: Dictated on workstation # [id number]
--- NOTE | 2017-01-18 10:45 | Physician Query ---
PQ-Conflicting Diagnosis Admission/Discharge Admission Date: Jan 14, 2017 at 05:30 Discharge Date: Jan 17, 2017 at 10:34 The medical record reflects the following clinical scenario: History/Risk Factors: Diabetes and mental status change Clinical Findings: Blood sugar of 32 on arrival and altered mental status Treatment: IV Dextrose 50 ml and monitoring FSBS. Question: Do you agree with the impression of " Acute metabolic encephalopathy- likely multifactorial-definitely hypoglycemia " per Dr. Dao Forrester. Please document a response below. PHYSICIAN RESPONSE Do you agree w/Consulting Dx?: Other,explanation/clincal findings ( HYPOGLYCEMIC ENCEPHALOPATHY) Please remember a lack of response to the above will prompt a phone page by [facility]/ coding staff. In responding to this query, please exercise your independent professional judgment. The purpose of this communication is to more accurately reflect the complexity of your patients condition. The fact that a question is asked does not imply that any particular answer is desired or expected. Thank you for your timely response to this clarification. Requestors name: Zenaida Churchill [facility] Phone # ext [phone] or [phone] THIS PHYSICIAN QUERY FORM IS A PERMANENT PART OF THE MEDICAL RECORD ZENAIDA CHURCHILL Jan 18, 2017 10:45 ZAC GUPTA MD Jan 31, 2017 17:13
== END 2017-01-17 10:34 | disposition home or self-care (01) | DRG 637 ==
LOC: EDUNIT# 03:57 → ER 03:59 → ICU 05:30 → 4TH 01-16 11:14
PROVIDERS: ADMIT Family Medicine; ATTEND Family Medicine
DX: E11.649 Type 2 diabetes mellitus with hypoglycemia without coma (principal); G93.41 Metabolic encephalopathy; I16.0 Hypertensive urgency; I12.9 Hypertensive chronic kidney disease with stage 1 through stage 4 chronic kidney disease, or unspecified chronic kidney disease; N18.4 Chronic kidney disease, stage 4 (severe); D61.818 Other pancytopenia; I48.2 Chronic atrial fibrillation; J44.9 Chronic obstructive pulmonary disease, unspecified; I25.10 Atherosclerotic heart disease of native coronary artery without angina pectoris; S00.03XA Contusion of scalp, initial encounter; S00.83XA Contusion of other part of head, initial encounter; T68.XXXA Hypothermia, initial encounter; E78.00 Pure hypercholesterolemia, unspecified; Z79.84 Long term (current) use of oral hypoglycemic drugs; Z96.653 Presence of artificial knee joint, bilateral; W06.XXXA Fall from bed, initial encounter; Y92.003 Bedroom of unspecified non-institutional (private) residence as the place of occurrence of the external cause
CPT/HCPCS: 36415; 51702; 70450; 70486; 71010; 72125; 80048; 80053; 80162; 81000; 82550; 82553; 82962; 83605; 83735; 83880; 84100; 84484; 84550; 85025; 85610; 85730; 87040; 87081; 87804; 93005; 93041; 94640; 94760; 96365; 96375

== ENCOUNTER 2018-05-18 20:45 | Emergency (ER) | payer MEDICARE ==
[~2018-05-18] VITALS: Ht 182.9 cm; Wt 86.2 kg
[~2018-05-18 20:45] MED LIST changes: +ALBU2.5V4 INH; -AMIO200T2 PO; +AMIO200T4 PO; +AMLO10TA2 PO; +ASPI-808 PO; +CALC-696 PO; +CHOL500044 PO; +CYAN250014 PO; +ERGO50006 PO; +HYDR-3922 PO; -IPRA3AMP INH; +IPRA3AMP31 INH; +LORA10TA76 PO; +NEBU1KIT3 MC; +OMEG1CAP24 PO; +[UNRECOGNIZED DRUG - CODE] MC
--- NOTE | 2018-05-18 21:21 | ED Neck-Back Pain/Injury ---
General Chief Complaint: General Problems/Pain Stated Complaint: BUMP ON SIDE OF NECK Nursing Triage Note: PATIENT STATES THAT HIS NECK HAS BEEN HURTING FOR QUITE A WHILE. TODAY IT IS WORSE AND THE PAIN IS ON THE RIGHT SIDE BEHIND HIS EAR. IT IS TENDER TO TOUCH. Nursing Sepsis Screen: No Definite Risk Source of Information: Patient Exam Limitations: No Limitations History of Present Illness Date Seen by Provider: May 18, 2018 Time Seen by Provider: 21:17 Initial Comments to ER with reports of right lateral neck pain intermittently but this particular episode has been present since Tuesday of this past week. It's tender to touch and a little red. The areas just inferior to the ear posterior to the angle of the mandible. Location: Other Timing/Duration: Intermittent Severity: Moderate Allergies and Home Medications Allergies Coded Allergies: No Known Drug Allergies (Unverified , 01/14/17) Home Medications Albuterol Sulfate 2.5 Mg/3 Ml Vial.neb, 2.5 MG INH RTQID Prescribed by: ZAC GUPTA on 01/17/17922 Amiodarone HCl 200 Mg Tablet, 200 MG PO DAILY, (Reported) Amlodipine Besylate 10 Mg Tablet, 5 MG PO DAILY Prescribed by: ZAC GUPTA on 01/17/17922 Ascorbate Calcium 500 Mg Tablet, 500 MG PO DAILY, (Reported) Aspirin 325 Mg Tablet, 325 MG PO DAILY, (Reported) Atenolol 50 Mg Tablet, 50 MG PO DAILY, (Reported) Atorvastatin Calcium 40 Mg Tablet, 40 MG PO HS, (Reported) LAST FILLED 09/05/16 #90 Calcium Citrate/Vitamin D3 1 Each Tablet, 1 EACH PO BID, (Reported) Cholecalciferol (Vitamin D3) 5,000 Unit Tablet, 5,000 UNIT PO DAILY, (Reported) Cyanocobalamin (Vitamin B-12) 1,000 Mcg Tablet, 1,000 MCG PO DAILY, (Reported) Fenofibrate 160 Mg Tablet, 160 MG PO DAILY, (Reported) Hydralazine HCl 10 Mg Tablet, 25 MG PO Q8HR Prescribed by: ZAC GUPTA on 01/17/17922 Loratadine 10 Mg Tablet, 10 MG PO DAILY, (Reported) Niacin 500 Mg Tablet, 500 MG PO DAILY@1700, (Reported) Tamsulosin HCl 0.4 Mg Cap.er.24h, 0.4 MG PO DAILY@1700, (Reported) LAST FILLED 09/13/16 #90 Vit C/Vit E/Lutein/Min/[place]-3 1 Each Capsule, 1 CAP PO DAILY, (Reported) Patient Home Medication List Home Medication List Reviewed: Yes Constitutional: see HPI EENTM: see HPI Respiratory: no symptoms reported Cardiovascular: no symptoms reported Genitourinary: no symptoms reported Musculoskeletal: no symptoms reported Skin: no symptoms reported Psychiatric/Neurological: No Symptoms Reported Past Umyycpd-Phkziw-Vmyjuo Hx Patient Social History Former Smoker, Quit: May 28, 1960 2nd Hand Smoke Exposure: No Recent Foreign Travel: No Contact w/Someone Who Travel: No Recent Infectious Disease Expo: No Recent Hopitalizations: Yes (pneumonia) Immunizations Up To Date Date of Pneumonia Vaccine: Aug 07, 2011 Date of Influenza Vaccine: Aug 09, 2016 Seasonal Allergies Seasonal Allergies: No Past Medical History Surgeries: Yes (BILATERAL KNEE REPLACEMENTS) Appendectomy, Joint Replacement, Orthopedic Respiratory: Yes Chronic Bronchitis Currently Using CPAP: No Currently Using BIPAP: No Cardiac: Yes Atrial Fibrillation, High Cholesterol, Hypertension Neurological: No Reproductive Disorders: No Genitourinary: Yes Benign Prostatic Hyperpl, Kidney Stones, Renal Failure Gastrointestinal: No Musculoskeletal: Yes Arthritis Endocrine: Yes Diabetes, Non-Insulin dep HEENT: No Loss of Vision: Denies Hearing Impairment: Hard of Hearing Cancer: No Psychosocial: No Integumentary: No Blood Disorders: Yes (reports has seen musician instrumental for low wbc's,no diagnosis) Family Medical History Hypertension Physical Exam Vital Signs Vital Signs - First Documented 05/18/18 21:01 Temp 98.7 Pulse 88 Resp 18 B/P (MAP) 147/57 (87) Pulse Ox 98 Capillary Refill : Less Than 3 Seconds Height, Weight, BMI Height: 6'0" Weight: 190lbs. 0oz. 86.456563tp; 30.2 BMI Method:Stated General Appearance: No Apparent Distress, WD/WN HEENT: PERRL/EOMI, TMs Normal Neck: Full Range of Motion, Normal Inspection Cardiovascular: Regular Rate, Rhythm, Normal Peripheral Pulses Respiratory: Normal Breath Sounds, No Accessory Muscle Use, No Respiratory Distress Gastrointestinal: Normal Bowel Sounds, Non Tender, Soft Extremity: Normal Capillary Refill, Normal Inspection Neurologic/Psychiatric: Alert, Oriented x3 Progress/Results/Core Measures Results/Orders Lab Results Laboratory Tests Test 05/18/18 21:12 05/18/18 21:58 Range/Units White Blood Count 10.4 4.3-11.0 10^3/uL Red Blood Count 3.72 L 4.35-5.85 10^6/uL Hemoglobin 11.8 L 13.3-17.7 G/DL Hematocrit 35 L 40-54 % Mean Corpuscular Volume 95 80-99 FL Mean Corpuscular Hemoglobin 32 25-34 PG Mean Corpuscular Hemoglobin Concent 33 32-36 G/DL Red Cell Distribution Width 16.0 H 10.0-14.5 % Platelet Count 157 130-400 10^3/uL Mean Platelet Volume 9.7 7.4-10.4 FL Neutrophils (%) (Auto) 71 42-75 % Lymphocytes (%) (Auto) 12 12-44 % Monocytes (%) (Auto) 14 H 0-12 % Eosinophils (%) (Auto) 2 0-10 % Basophils (%) (Auto) 0 0-10 % Neutrophils # (Auto) 7.4 1.8-7.8 X 10^3 Lymphocytes # (Auto) 1.3 1.0-4.0 X 10^3 Monocytes # (Auto) 1.5 H 0.0-1.0 X 10^3 Eosinophils # (Auto) 0.2 0.0-0.3 10^3/uL Basophils # (Auto) 0.0 0.0-0.1 10^3/uL Sodium Level 138 135-145 MMOL/L Potassium Level 5.8 H 3.6-5.0 MMOL/L Chloride Level 111 H 98-107 MMOL/L Carbon Dioxide Level 18 L 21-32 MMOL/L Anion Gap 9 5-14 MMOL/L Blood Urea Nitrogen 50 H 7-18 MG/DL Creatinine 3.32 H 0.60-1.30 MG/DL Estimat Glomerular Filtration Rate 18 BUN/Creatinine Ratio 15 Glucose Level 123 H 70-105 MG/DL Calcium Level 9.4 8.5-10.1 MG/DL My Orders Orders - MACEY DUENAS APRN Cbc With Automated Diff (05/18/18 21:05) Basic Metabolic Panel (05/18/18 21:05) Iv Heplock-Insert (Order) (05/18/18 21:05) Ct Neck (Soft Tissue) Wo (05/18/18 21:21) Ns Iv 500 Ml (Sodium Chloride 0.9%) (05/18/18 22:00) Basic Metabolic Panel (05/18/18 21:56) Vital Signs/I&O 05/18/18 21:01 Temp 98.7 Pulse 88 Resp 18 B/P (MAP) 147/57 (87) Pulse Ox 98 Blood Pressure Mean: 87 Diagnostic Imaging Diagonstic Imaging: CT Comments NAME: YVONNE ZHU [facility] REC#: [id number] PT STATUS: REG ER : 1935 PHYSICIAN: MACEY DUENAS APRN ADMIT DATE: 05/18/18/ER Draft Date of Exam:05/18/18 CT NECK (SOFT TISSUE) WO INDICATION: Neck pain with pain behind right ear. EXAMINATION: CT of the neck soft tissues was obtained without IV contrast with axial slices and sagittal and coronal reconstructions. FINDINGS: Visualized portions of the lung apices are clear. Bony windows demonstrate diffuse degenerative changes throughout the cervical spine with diffuse facet degenerative change and disc space narrowing on essentially all levels with bridging syndesmophytes compatible with ankylosing spondylitis. Soft tissue windows demonstrate the thyroid gland to be unremarkable. The submandibular glands appear unremarkable. There are no discretely enlarged nodes in the neck soft tissues. The right parotid gland has increased density compared to the left and diffuse swelling. There is some stranding of the fat posterior to the right parotid gland compatible with cellulitis. There is an apparent mass or enlarged node in the posterior portion of the right parotid gland measuring about 1.1 cm. There is no abnormal fluid collection or abscess. IMPRESSION: 1. There is asymmetric swelling of the right parotid gland compared to the left with some edema in the soft tissues posterior to the right parotid gland compatible with cellulitis. There is a 1.1 cm mass or enlarged node in the right parotid gland posteriorly. Consider MRI for further characterization of the right parotid gland. 2. There is no abnormal fluid collection or abscess. There is no overt adenopathy seen elsewhere. There are chronic bony changes in the cervical spine compatible with ankylosing spondylitis. Dictated on workstation # [id number] Dict: 05/18/182142 Trans: 05/18/182150 [facility] [id number] Interpreted by: LISA MILAN MD Electronically signed by: Departure Impression Primary Impression: Right parotid inflammation Disposition: HOME, SELF-CARE Condition: Stable Departure-Patient Inst. Decision time for Depature: 21:20 Referrals: MORA HOOD MD NO,LOCAL PHYSICIAN (PCP) Primary Care Physician Patient Instructions: LYMPH NODE INFECTION Add. Discharge Instructions: 1. Antibiotic as directed. Call Dr. Hood tomorrow to make an appointment to be seen to further evaluate this inflammation in your parotid gland All discharge instructions reviewed with patient and/or family. Voiced understanding. Scripts Amoxicillin/Potassium Clav (Augmentin 875-125 Tablet) 1 Each Tablet 1 EACH PO BID, #14 TAB Prov: MACEY DUENAS APRN 05/18/18 Copy Copies To 1: MORA HOOD MD, PETER J APRN May 18, 2018 21:21
[2018-05-18 21:25] LABS: BASOPHILS % (AUTO) 0 % (0-10); EOSINOPHILS # (AUTO) 0.2 10^3/uL (0.0-0.3); EOSINOPHILS % (AUTO) 2 % (0-10); HEMATOCRIT 35 % (40-54); HEMOGLOBIN 11.8 G/DL (13.3-17.7); LYMPHOCYTES # (AUTO) 1.3 X 10^3 (1.0-4.0); LYMPHOCYTES % (AUTO) 12 % (12-44); MEAN CORPUSCULAR HEMOGLOBIN 32 PG (25-34); MEAN CORPUSCULAR HGB CONC 33 G/DL (32-36); MEAN CORPUSCULAR VOLUME 95 FL (80-99); MEAN PLATELET VOLUME 9.7 FL (7.4-10.4); MONOCYTES # (AUTO) 1.5 X 10^3 (0.0-1.0); MONOCYTES % (AUTO) 14 % (0-12); NEUTROPHILS # (AUTO) 7.4 X 10^3 (1.8-7.8); NEUTROPHILS % (AUTO) 71 % (42-75); PLATELET COUNT 157 10^3/uL (130-400); RED BLOOD COUNT 3.72 10^6/uL (4.35-5.85); WHITE BLOOD COUNT 10.4 10^3/uL (4.3-11.0)
[2018-05-18 21:37] LABS: CALCIUM 9.4 MG/DL (8.5-10.1); CREATININE SERUM 3.32 MG/DL (0.60-1.30); POTASSIUM 5.8 MMOL/L (3.6-5.0)
--- NOTE | 2018-05-18 21:52 | Diagnostic Imaging Report ---
INDICATION: Neck pain with pain behind right ear. EXAMINATION: CT of the neck soft tissues was obtained without IV contrast with axial slices and sagittal and coronal reconstructions. FINDINGS: Visualized portions of the lung apices are clear. Bony windows demonstrate diffuse degenerative changes throughout the cervical spine with diffuse facet degenerative change and disc space narrowing on essentially all levels with bridging syndesmophytes compatible with ankylosing spondylitis. Soft tissue windows demonstrate the thyroid gland to be unremarkable. The submandibular glands appear unremarkable. There are no discretely enlarged nodes in the neck soft tissues. The right parotid gland has increased density compared to the left and diffuse swelling. There is some stranding of the fat posterior to the right parotid gland compatible with cellulitis. There is an apparent mass or enlarged node in the posterior portion of the right parotid gland measuring about 1.1 cm. There is no abnormal fluid collection or abscess. IMPRESSION: 1. There is asymmetric swelling of the right parotid gland compared to the left with some edema in the soft tissues posterior to the right parotid gland compatible with cellulitis. There is a 1.1 cm mass or enlarged node in the right parotid gland posteriorly. Consider MRI for further characterization of the right parotid gland. 2. There is no abnormal fluid collection or abscess. There is no overt adenopathy seen elsewhere. There are chronic bony changes in the cervical spine compatible with ankylosing spondylitis. Dictated by: Dictated on workstation # [id number]
[2018-05-18] MEDS ORDERED: NS IV 500 ML 500 ML IV SCH (22:00)
[2018-05-18] MEDS ORDERED: AMOX-358 PO (22:17)
[2018-05-18 22:19] LABS: CALCIUM 9.1 MG/DL (8.5-10.1); CREATININE SERUM 3.22 MG/DL (0.60-1.30); POTASSIUM 4.6 MMOL/L (3.6-5.0)
[2018-05-18] MEDS ORDERED: AUGMENTIN 875 MG TAB (AMOXICILLIN/CLAVULANATE) PO SCH (22:30)
[2018-05-18 22:38] VITALS: BP 147/57
== END 2018-05-18 22:45 | disposition home or self-care (01) ==
LOC: EDUNIT# 20:45 → ER 20:47
DX: K11.8 Other diseases of salivary glands (principal); I48.91 Unspecified atrial fibrillation; E78.00 Pure hypercholesterolemia, unspecified; I10 Essential (primary) hypertension; E11.9 Type 2 diabetes mellitus without complications; Z87.442 Personal history of urinary calculi; Z79.51 Long term (current) use of inhaled steroids; Z79.82 Long term (current) use of aspirin; Z87.891 Personal history of nicotine dependence; Z96.653 Presence of artificial knee joint, bilateral; Z90.89 Acquired absence of other organs
CPT/HCPCS: 36415; 70490; 80048; 85025; 96360

== ENCOUNTER 2018-09-13 04:07 | Inpatient (IN) | payer MEDICARE ==
[~2018-09-13] VITALS: Ht 188 cm; Wt 90.7 kg
[2018-09-13] VITALS (8 sets, daily range): BP systolic 96–127; BP diastolic 58–71
[~2018-09-13 04:07] MED LIST changes: -AMLO10TA2 PO; +AMLO10TA6 PO; -AMLO5TAB2 PO; +AMLO5TAB7 PO; +AMOX-358 PO
[2018-09-13] MEDS ORDERED: NS IV 1000 ML 1,000 ML IV ONE ×2 (04:15→06:22)
[2018-09-13 04:26] LABS: BASOPHILS % (AUTO) 0 % (0-10); EOSINOPHILS # (AUTO) 0.1 10^3/uL (0.0-0.3); EOSINOPHILS % (AUTO) 1 % (0-10); HEMATOCRIT 33 % (40-54); HEMOGLOBIN 10.4 G/DL (13.3-17.7); LYMPHOCYTES # (AUTO) 0.6 X 10^3 (1.0-4.0); LYMPHOCYTES % (AUTO) 4 % (12-44); MEAN CORPUSCULAR HEMOGLOBIN 31 PG (25-34); MEAN CORPUSCULAR HGB CONC 32 G/DL (32-36); MEAN CORPUSCULAR VOLUME 97 FL (80-99); MEAN PLATELET VOLUME 9.6 FL (7.4-10.4); MONOCYTES % (AUTO) 8 % (0-12); NEUTROPHILS # (AUTO) 11.9 X 10^3 (1.8-7.8); NEUTROPHILS % (AUTO) 88 % (42-75); PLATELET COUNT 173 10^3/uL (130-400); RED BLOOD COUNT 3.35 10^6/uL (4.35-5.85); RED CELL DISTRIBUTION WIDTH 15.4 % (10.0-14.5); WHITE BLOOD COUNT 13.6 10^3/uL (4.3-11.0)
[2018-09-13 04:42] LABS: INR 1.1 (0.8-1.4); PROTHROMBIN TIME PATIENT 14.3 SEC (12.2-14.7)
[2018-09-13 04:52] LABS: ALANINE AMINOTRANSFERASE 24 U/L (0-55); ALBUMIN 3.6 GM/DL (3.2-4.5); ALKALINE PHOSPHATASE 64 U/L (40-136); BILIRUBIN,TOTAL 0.6 MG/DL (0.1-1.0); BUN/CREATININE RATIO 18; CALCIUM 9.3 MG/DL (8.5-10.1); CARBON DIOXIDE 15 MMOL/L (21-32); CHLORIDE 113 MMOL/L (98-107); CREATININE SERUM 3.53 MG/DL (0.60-1.30); GFR ESTIMATED 17; GLUCOSE 120 MG/DL (70-105); MAGNESIUM 1.7 MG/DL (1.8-2.4); POTASSIUM 5.3 MMOL/L (3.6-5.0); SODIUM 139 MMOL/L (135-145); TOTAL PROTEIN 6.5 GM/DL (6.4-8.2)
[2018-09-13 04:55] LABS: BAND NEUTROPHILS 9 %; LYMPHOCYTES % (MANUAL) 3 %; MONOCYTES % (MANUAL) 9 %; NEUTROPHILS % (MANUAL) 79 %; RBC MORPH NORMAL
[2018-09-13 05:11] LABS: TSH (THYROID ANALYZER) 2.33 UIU/ML (0.35-4.94)
[2018-09-13 05:36] LABS: BILIRUBIN,URINE NEGATIVE (NEGATIVE); CLARITY,URINE SLIGHTLY CLOUDY; COLOR,URINE YELLOW; GLUCOSE, URINE (UA) NEGATIVE (NEGATIVE); KETONES,URINE NEGATIVE (NEGATIVE); LEUKOCYTE ESTERASE ,URINE NEGATIVE (NEGATIVE); NITRITE,URINE NEGATIVE (NEGATIVE); PH,URINE 5 (5-9); PROTEIN,URINE 3+ (NEGATIVE); UROBILINOGEN,URINE NORMAL (NORMAL)
[2018-09-13 05:44] LABS: AMORPHOUS SEDIMENT,UR MOD AMOR URATES /LPF; BACTERIA,URINE NEGATIVE /HPF
[2018-09-13] MEDS ORDERED: cefTRIAXone FOR IV USE 1,000 MG in NS (IVPB) 50 ML IV ONE (05:45)
[2018-09-13] MEDS ORDERED: ENOXAPARIN 100 MG/1 ML (LOVENOX) SYR SC ONE (06:00)
--- NOTE | 2018-09-13 06:02 | Diagnostic Imaging Report ---
INDICATION: Altered mental status. There is generalized atrophy. There is evidence of encephalomalacia in the right frontal temporal region. There are no masses or hemorrhages. There are no extra-axial fluid collections. IMPRESSION: Diffuse cerebral degeneration. 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 No acute abnormality seen. Agree with preliminary interpretation. Dictated by: Dictated on workstation # [id number]
--- NOTE | 2018-09-13 06:03 | Diagnostic Imaging Report ---
INDICATION: Altered mental status. Portable chest 5:05 AM FINDINGS: Heart is mildly enlarged. Pulmonary vascularity is normal. There is a questionable infiltrate in the left mid lateral lung. Right lung is clear. There is no effusion or pneumothorax. IMPRESSION: Questionable infiltrate left lung. Dictated by: Dictated on workstation # [id number]
--- NOTE | 2018-09-13 06:13 | ED General ---
General Chief Complaint: Altered Mental Status Stated Complaint: FALL,AMS Exam Limitations: Other (PT CANNOT GIVE ANY INFORMATION / IS UNABLE TO ANSWER ANY QUESTIONS, AND IS AN EXTREMELY POOR HISTORIAN) History of Present Illness Date Seen by Provider: Sep 13, 2018 Time Seen by Provider: 04:07 Initial Comments PT ARRIVES VIA POV FROM HOME--REQUIRED FULL ASSIST TO GET OUT OF VEHICLE INTO WHEELCHAIR STATES HE HAS BEEN CONFUSED AND WEAK STATES TONIGHT WHEN HE WAS TRYING TO WALK, HE WAS REAL SHAKEY AND WEAK AND REAL COLD AND THEN HE LOST HIS BALANCE AND FELL BACKWARD, AND LANDED --IN SITTING POSITION--IN A FULL LAUNDRY BASKET--NO INJURY, NO LOSS OF CONSCIOUSNESS , DID NOT HIT HIS HEAD OCCURRED AROUND 0130 THIS AM STATES HE WAS CONFUSED AND "NOT HIMSELF" BEFORE HE FELL, BUT CANNOT STATE HOW LONG HE HAS BEEN CONFUSED. SHE STATES HE HAS BEEN HAVING FREQUENT FALLS, BUT CANNOT STATE FOR HOW LONG REPORTS JUST PRIOR TO ARRIVAL, HIS HANDS WERE REAL COLD BUT OTHERWISE THE REST OF HIS BODY WAS REAL WARM, DID NOT CHECK TEMP SHE STATES HE WAS RESTLESS, AND WOULDN'T STAY IN ONE PLACE SHE ALSO STATES THAT HE "WAS NOT WALKING GOOD" --BUT STATES THAT "HE GETS LIKE THAT SOMETIMES" DOES NOT KNOW IF HE HAS HAD ANY NAUSEA OR VOMITING SHE STATES HE ATE BREAKFAST, BUT NOT LUNCH OR DINNER. SON STATES THAT PT DID EAT LUNCH DOES NOT KNOW IF HE TOOK HIS MEDICATIONS TODAY STATES HE HAS HAD A COUGH BUT CANNOT STATE HOW LONG HE HAS HAD IT, OR IF IT IS NEW OR OLD PROBLEM ALSO STATES HE HAS SHORTNESS OF BREATH, BUT CANNOT STATE IF IT IS A NEW OR OLD PROBLEM SHE ALSO STATES THAT HE HAS BEEN REAL WEAK BUT CANNOT STATE HOW LONG THAT HAS BEEN GOING ON. CANNOT GIVE ANY OF HIS PAST MEDICAL HISTORY AND KNOWS NONE OF HIS MEDICATIONS OR WHAT HE TAKES THEM FOR. PCP: DR. GUPTA Allergies and Home Medications Allergies Coded Allergies: No Known Drug Allergies (Unverified , 01/14/17) Home Medications Albuterol Sulfate 2.5 Mg/3 Ml Vial.neb, 2.5 MG INH RTQID Prescribed by: ZAC GUPTA on 01/17/17 0923 Amiodarone HCl 200 Mg Tablet, 200 MG PO DAILY, (Reported) Amlodipine Besylate 10 Mg Tablet, 5 MG PO DAILY Prescribed by: ZAC GUPTA on 01/17/17922 Amoxicillin/Potassium Clav 1 Each Tablet, 1 EACH PO BID Prescribed by: MACEY DUENAS on 05/18/18 2217 Ascorbate Calcium 500 Mg Tablet, 500 MG PO DAILY, (Reported) Aspirin 325 Mg Tablet, 325 MG PO DAILY, (Reported) Atenolol 50 Mg Tablet, 50 MG PO DAILY, (Reported) Atorvastatin Calcium 40 Mg Tablet, 40 MG PO HS, (Reported) LAST FILLED 09/05/16 #90 Calcium Citrate/Vitamin D3 1 Each Tablet, 1 EACH PO BID, (Reported) Cholecalciferol (Vitamin D3) 5,000 Unit Tablet, 5,000 UNIT PO DAILY, (Reported) Cyanocobalamin (Vitamin B-12) 1,000 Mcg Tablet, 1,000 MCG PO DAILY, (Reported) Fenofibrate 160 Mg Tablet, 160 MG PO DAILY, (Reported) Hydralazine HCl 10 Mg Tablet, 25 MG PO Q8HR Prescribed by: ZAC GUPTA on 01/17/17922 Loratadine 10 Mg Tablet, 10 MG PO DAILY, (Reported) Niacin 500 Mg Tablet, 500 MG PO DAILY@1700, (Reported) Tamsulosin HCl 0.4 Mg Cap.er.24h, 0.4 MG PO DAILY@1700, (Reported) LAST FILLED 09/13/16 #90 Vit C/Vit E/Lutein/Min/[place]-3 1 Each Capsule, 1 CAP PO DAILY, (Reported) Patient Home Medication List Home Medication List Reviewed: Yes Review of Systems Review of Systems Constitutional: fever, weakness, other (ALL PER , PT IS NOT TALKING OR ANSWERING ANY QUESTIONS OR FOLLOWING ANY COMMANDS) Respiratory: see HPI, cough, short of breath Past Hkafseh-Wrymxa-Ogmqvm Hx Patient Social History Alcohol Use: Denies Use Recreational Drug Use: No Smoking Status: Never a Smoker Former Smoker, Quit: May 28, 1960 2nd Hand Smoke Exposure: No Recent Foreign Travel: No Contact w/Someone Who Travel: No Recent Hopitalizations: Yes (pneumonia) Immunizations Up To Date Date of Pneumonia Vaccine: Aug 07, 2011 Date of Influenza Vaccine: Aug 09, 2016 Seasonal Allergies Seasonal Allergies: No Past Medical History Surgeries: Yes (BILATERAL KNEE REPLACEMENTS) Appendectomy, Joint Replacement, Orthopedic Respiratory: Yes Chronic Bronchitis Currently Using CPAP: No Currently Using BIPAP: No Cardiac: Yes Atrial Fibrillation, High Cholesterol, Hypertension Neurological: Yes (OLD STROKE NOTED ON CT HEAD 09/13/18) Stroke Reproductive Disorders: No Genitourinary: Yes Benign Prostatic Hyperpl, Kidney Stones, Renal Failure Gastrointestinal: No Musculoskeletal: Yes Arthritis Endocrine: Yes Diabetes, Non-Insulin dep HEENT: No Loss of Vision: Denies Hearing Impairment: Hard of Hearing Cancer: No Psychosocial: No Integumentary: No Blood Disorders: Yes (reports has seen product tester fiberglass for low wbc's,no diagnosis) Family Medical History Hypertension Physical Exam Vital Signs Vital Signs - First Documented 09/13/18 04:07 Temp 100.6 Pulse 100 Resp 18 B/P (MAP) 126/63 (84) Pulse Ox 96 O2 Delivery Room Air Capillary Refill : Height, Weight, BMI Height: 6'0" Weight: 190lbs. 0oz. 86.970245ih; 30.2 BMI Method:Stated General Appearance: No Apparent Distress, WD/WN, Other (PT NOT TALKING OR FOLLOWING COMMANDS, HAS OCCASIONAL MOIST COUGH, DOES HAVE SOME DIFFICULTY CLEARING SECRETIONS. ) HEENT: Other (EDENTULOUS, ORAL MUCOSA DRY) Neck: Normal Inspection Respiratory: No Accessory Muscle Use, No Respiratory Distress, Rales (IN BASES) Cardiovascular: No JVD, No Murmur, Irregularly Irregular, Tachycardia Gastrointestinal: Normal Bowel Sounds, No Organomegaly, Non Tender, Soft Extremity: Normal Capillary Refill, Normal Inspection, Normal Range of Motion, Pedal Edema (TRACE BILATERALLY) Neurologic/Psychiatric: Alert, No Motor/Sensory Deficits (GROSSLY INTACT. ), Other (PT IS NOT REALLY TALKING, NOT ANSWERING QUESITONS OR FOLLOWING COMMANDS. PT IS AWAKE, BUT HAS GENERALIZED WEAKNESS, AND REQUIRES FULL ASSIST BY MULTIPLE STAFF TO TRANSFER FROM WHEELCHAIR TO ER CART. ) Skin: Normal Color, Warm/Dry, Other (MULTIPLE EXCORIATED AND SCABBED SMALL SORES OVER CHEST AND ABDOMEN) Focused Exam Sepsis Stage: Sepsis Possible Source: Pulmonary Lactate Level 09/13/18 04:16: Lactic Acid Level 1.54 Time of Focused Exam: 05:00 Respiratory: Rales (IN BASES) Cardiovascular: No Murmur, Normal Peripheral Pulses, Irregularly Irregular Capillary Refill: Less Than 3 Seconds Peripheral Pulses: 2+ Dorsalis Pedis (R), 2+ Left Dors-Pedis (L), 2+ Radial Pulses (R), 2+ Radial Pulses (L) Skin: normal color, warm/dry Lactic Acid Level Laboratory Tests Test 09/13/18 04:16 Lactic Acid Level 1.54 MMOL/L (0.50-2.00) Within 3hrs of presentation: Admin fluids, Admin ABX, Blood cultures prior to ABX's, Focus exam, Lactate level Progress/Results/Core Measures Suspected Sepsis SIRS Temperature: Pulse: Respiratory Rate: Laboratory Tests 09/13/18 04:16: White Blood Count 13.6H Blood Pressure / Mean: 09/13/18 04:16: Lactic Acid Level 1.54 Laboratory Tests 09/13/18 04:16: Creatinine 3.53H, INR Comment 1.1, Platelet Count 173, Total Bilirubin 0.6 Results/Orders Lab Results Laboratory Tests Test 09/13/18 04:16 09/13/18 05:30 Range/Units White Blood Count 13.6 H 4.3-11.0 10^3/uL Red Blood Count 3.35 L 4.35-5.85 10^6/uL Hemoglobin 10.4 L 13.3-17.7 G/DL Hematocrit 33 L 40-54 % Mean Corpuscular Volume 97 80-99 FL Mean Corpuscular Hemoglobin 31 25-34 PG Mean Corpuscular Hemoglobin Concent 32 32-36 G/DL Red Cell Distribution Width 15.4 H 10.0-14.5 % Platelet Count 173 130-400 10^3/uL Mean Platelet Volume 9.6 7.4-10.4 FL Neutrophils (%) (Auto) 88 H 42-75 % Lymphocytes (%) (Auto) 4 L 12-44 % Monocytes (%) (Auto) 8 0-12 % Eosinophils (%) (Auto) 1 0-10 % Basophils (%) (Auto) 0 0-10 % Neutrophils # (Auto) 11.9 H 1.8-7.8 X 10^3 Lymphocytes # (Auto) 0.6 L 1.0-4.0 X 10^3 Monocytes # (Auto) 1.0 0.0-1.0 X 10^3 Eosinophils # (Auto) 0.1 0.0-0.3 10^3/uL Basophils # (Auto) 0.0 0.0-0.1 10^3/uL Neutrophils % (Manual) 79 % Lymphocytes % (Manual) 3 % Monocytes % (Manual) 9 % Band Neutrophils 9 % Blood Morphology Comment NORMAL Prothrombin Time 14.3 12.2-14.7 SEC INR Comment 1.1 0.8-1.4 Activated Partial Thromboplast Time 30 24-35 SEC Sodium Level 139 135-145 MMOL/L Potassium Level 5.3 H 3.6-5.0 MMOL/L Chloride Level 113 H 98-107 MMOL/L Carbon Dioxide Level 15 L 21-32 MMOL/L Anion Gap 11 5-14 MMOL/L Blood Urea Nitrogen 62 H 7-18 MG/DL Creatinine 3.53 H 0.60-1.30 MG/DL Estimat Glomerular Filtration Rate 17 BUN/Creatinine Ratio 18 Glucose Level 120 H 70-105 MG/DL Lactic Acid Level 1.54 0.50-2.00 MMOL/L Calcium Level 9.3 8.5-10.1 MG/DL Corrected Calcium 9.6 8.5-10.1 MG/DL Magnesium Level 1.7 L 1.8-2.4 MG/DL Total Bilirubin 0.6 0.1-1.0 MG/DL Aspartate Amino Transf (AST/SGOT) 40 H 5-34 U/L Alanine Aminotransferase (ALT/SGPT) 24 0-55 U/L Alkaline Phosphatase 64 40-136 U/L Troponin I < 0.30 <0.30 NG/ML B-Type Natriuretic Peptide 592.8 H <100.0 PG/ML Total Protein 6.5 6.4-8.2 GM/DL Albumin 3.6 3.2-4.5 GM/DL TSH [facility] Testing 2.33 0.35-4.94 UIU/ML Urine Color YELLOW Urine Clarity SLIGHTLY CLOUDY Urine pH 5 5-9 Urine Specific [place] 1.020 1.016-1.022 Urine Protein 3+ H NEGATIVE Urine Glucose (UA) NEGATIVE NEGATIVE Urine Ketones NEGATIVE NEGATIVE Urine Nitrite NEGATIVE NEGATIVE Urine Bilirubin NEGATIVE NEGATIVE Urine Urobilinogen NORMAL NORMAL MG/DL Urine Leukocyte Esterase NEGATIVE NEGATIVE Urine RBC (Auto) NEGATIVE NEGATIVE Urine RBC NONE /HPF Urine WBC NONE /HPF Urine Squamous Epithelial Cells 2-5 /HPF Urine Crystals PRESENT H /LPF Urine Amorphous Sediment MOD LEESA URATES H /LPF Urine Bacteria NEGATIVE /HPF Urine Casts NONE /LPF Urine Mucus NEGATIVE /LPF Urine Culture Indicated NO Micro Results Microbiology 09/13/18 Influenza Types A,B Antigen (JUAN ALBERTO) - Final, Complete My Orders Orders - CALE DE LA GARZA DO Accucheck Stat ONCE (09/13/18 04:15) Saline Lock/Iv-Start (09/13/18 04:15) Ekg Tracing (09/13/18 04:15) O2 (09/13/18 04:15) Monitor-Rhythm Ecg Trace Only (09/13/18 04:15) Ct Head Wo-R/O Stroke (09/13/18 04:15) BNP (09/13/18 04:15) Cbc With Automated Diff (09/13/18 04:15) Comprehensive Metabolic Panel (09/13/18 04:15) Lactic Acid Analyzer (09/13/18 04:15) Magnesium (09/13/18 04:15) Protime With Inr (09/13/18 04:15) Partial Thromboplastin Time (09/13/18 04:15) Thyroid Analyzer (09/13/18 04:15) Troponin I (09/13/18 04:15) Ua Culture If Indicated (09/13/18 04:15) Blood Culture (09/13/18 04:15) Influenza A And B Antigens (09/13/18 04:15) Chest 1 View, Ap/Pa Only (09/13/18 04:15) Saline Lock/Iv-Start (09/13/18 04:15) Ns Iv 1000 Ml (Sodium Chloride 0.9%) (09/13/18 04:15) Manual Differential (09/13/18 04:16) Catheter(Urinary) Insert & Ass 03,15 (09/13/18 04:26) Urine Culture (09/13/18 05:40) Saline Lock/Iv-Start (09/13/18 05:40) Vital Signs Adult Sepsis Patie Q15M (09/13/18 05:40) O2 (09/13/18 05:40) Remove Rings In Anticipation O (09/13/18 05:40) Ceftriaxone For Iv Use (Rocephin For I (09/13/18 05:45) Enoxaparin Injection (Lovenox Injection) (09/13/18 06:00) Saline Lock/Iv-Start (09/13/18 06:22) Ns Iv 1000 Ml (Sodium Chloride 0.9%) (09/13/18 06:22) Medications Given in ED Current Medications Medications Dose Ordered Sig/Eloy Route Start Time Stop Time Status Last Admin Dose Admin Ceftriaxone Sodium 1000 mg/ Sodium Chloride 60 ml @ 100 mls/hr ONCE ONCE IV 09/13/18 05:45 09/13/18 06:20 DC 09/13/18 06:10 100 MLS/HR Enoxaparin Sodium 90 mg ONCE ONCE SC 09/13/18 06:00 09/13/18 06:02 DC 09/13/18 06:10 90 MG Sodium Chloride 1,000 ml @ 0 mls/hr Q0M ONCE IV 09/13/18 04:15 09/13/18 04:17 DC 09/13/18 04:22 0 MLS/HR Sodium Chloride 1,000 ml @ 0 mls/hr Q0M ONCE IV 09/13/18 06:22 09/13/18 06:38 DC 09/13/18 06:10 0 MLS/HR Vital Signs/I&O 09/13/18 09/13/18 04:07 07:00 Temp 100.6 100.2 Pulse 100 100 Resp 18 18 B/P (MAP) 126/63 (84) 95/61 (72) Pulse Ox 96 98 O2 Delivery Room Air Room Air Capillary Refill : Progress Note : Progress Note NO DETERIORATION IN PT'S CONDITION DURING ER STAY ECG Initial ECG Impression Date: Sep 13, 2018 Initial ECG Impression Time: 04:13 Initial ECG Rate: 112 Initial ECG Rhythm: A Fib/Flutter Initial ECG Impression: Nonspecific Changes Initial ECG Comparisson: Changed (FROM LAST EKG WAS NSR), Unchanged (OLDER EKG SHOWED ATRIAL FIB. ) Diagnostic Imaging Comments CXR--CARDIOMEGALY, ? LLL INFILTRATE ? -PENDING RADIOLOGIST REVIEW CT HEAD--NO ACUTE PROCESS, SUBACUTE TO CHRONIC CVA ON RIGHT, NOT PRESENT IN 2017 --PER [facility] RADIOLOGIST VIA PHONE AT [phone] Departure Communication (Admissions) [id number]--SPOKE WITH DR. GUPTA, ACCEPTS PT FOR ADMIT Impression Primary Impression: Sepsis Additional Impressions: Altered mental status POSSIBLE PNEUMONIA Chronic renal failure Atrial fibrillation Disposition: ADMITTED INPATIENT Condition: Stable Admissions Decision to Admit Reason: Admit from ER (General) Decision to Admit/Date: Sep 13, 2018 Time/Decision to Admit Time: 05:50 Departure-Patient Inst. Referrals: ZAC GUPTA MD (PCP/Family) Primary Care Physician CALE DE LA GARZA 7, 2018 06:13
--- OUTSIDE RECORDS SUMMARY | 2018-09-13 07:00 | XMS REPORT | CCD ---
Author Author Rosalinda Larsen Organization Rosalinda Larsen MD, [facility] Address [address] [place] [address] Phone Care Team Providers Care Supervisor [employer] Name Role Phone PP Unavailable CCM Unavailable Summary Purpose Interface Exchange Insurance Providers Payer name Policy type / Coverage type Covered libertarian ID Effective Begin Date Effective End Date WPS Medicare Part B Medicare Part B [id number] Unknown Unknown [facility] Medicare Part B [id number] Unknown Unknown Family history Father Diagnosis Age At Onset Diabetes Unknown Arthritis Unknown Daughter Diagnosis Age At Onset Cancer Unknown Brother Diagnosis Age At Onset Arthritis Unknown Mother Diagnosis Age At Onset Diabetes Unknown Arthritis Unknown Hypertension Unknown Sister Diagnosis Age At Onset Arthritis Unknown Social History Social History Element Codes Description Effective Dates Marital status Unknown Patti 01/11/2017 Number of children Unknown 3 05/27/2015 Employment Unknown Retired pt worked for the [employer] 05/27/[address]: 179563922 Never smoker 05/27/[address]: 447911671 Never drinks alcohol 05/27/2015 Allergies, Adverse Reactions, Alerts Substance Reaction Codes Entered Date Inactivated Date Status * NO KNOWN DRUG ALLERGIES Unknown 09/30/2015 No Inactive Date Active Past Medical History Illness Codes Condition Status Onset Date Resolved Date Encounter for general adult medical examination with abnormal findings ICD-9: V70.0 ICD-10: Z00.01 Active 01/27/2017 Unknown Chronic atrial fibrillation ICD-9: 427.31 ICD-10: I48.2 Active 05/26/2015 Unknown Essential (primary) hypertension ICD-9: 401.1 ICD-10: I10 Active 01/11/2017 Unknown Rash and other nonspecific skin eruption ICD-9: 782.1 ICD-10: R21 Active 09/20/2017 Unknown Type 2 diabetes mellitus without complications ICD-9: 250.00 ICD-10: E11.9 Active 05/26/2015 Unknown Anemia in chronic kidney disease ICD-9: 285.21 ICD-10: D63.1 Active 02/15/2017 Unknown Chronic kidney disease, stage 4 (severe) ICD-9: 585.4 ICD-10: N18.4 Active 09/20/2017 Unknown Type 2 diabetes mellitus with hyperglycemia ICD-9: 250.00 ICD-10: E11.65 Active 01/25/2017 Unknown Vitamin D deficiency, unspecified ICD-9: 268.9 ICD-10: E55.9 Active 09/20/2017 Unknown Essential (primary) hypertension ICD-9: 401.9 ICD-10: I10 Active 05/26/2015 Unknown Dysuria ICD-9: 788.1 ICD-10: R30.0 Active 08/03/2016 Unknown Fracture of other parts of pelvis, subsequent encounter for fracture with delayed healing ICD-9: V54.19 ICD-10: S32.89XG Active 08/03/2016 Unknown Unilateral inguinal hernia, without obstruction or gangrene , recurrent ICD-9: 550.91 ICD-10: K40.91 Active 08/03/2016 Unknown Impacted cerumen, right ear ICD-9: 389.8 ICD-10: H61.21 Active 09/29/2015 Unknown Type 1 diabetes mellitus without complications ICD-9: 250.00 ICD-10: E10.9 Active 05/26/2015 Unknown Elevated digoxin level ICD-9: 796.0 Active 06/30/2015 Unknown Diabetes Unknown Active 05/27/2015 Unknown Hypertension Unknown Active 05/27/2015 Unknown ATRIAL FIBRILLATION ICD-9: 427.31 Active 05/26/2015 Unknown DIABETES TYPE II ICD-9 : 250.00 Active 05/26/2015 Unknown ESSENTIAL HYPERTENSION ICD-9: 401.9 Active 05/26/2015 Unknown Problems Condition Codes Effective Dates Condition Status Encounter for general adult medical examination with abnormal findings ICD-9: V70.0 ICD-10: Z00.01 01/27/2017 Active Chronic atrial fibrillation ICD-9: 427.31 ICD-10: I48.2 05/26/2015 Active Essential (primary) hypertension ICD-9: 401.1 ICD-10: I10 01/11/2017 Active Rash and other nonspecific skin eruption ICD-9: 782.1 ICD-10: R21 09/20/2017 Active Type 2 diabetes mellitus without complications ICD-9: 250.00 ICD-10: E11.9 05/26/2015 Active Anemia in chronic kidney disease ICD-9: 285.21 ICD-10: D63.1 02/15/2017 Active Chronic kidney disease, stage 4 (severe) ICD-9: 585.4 ICD-10: N18.4 09/20/2017 Active Type 2 diabetes mellitus with hyperglycemia ICD-9: 250.00 ICD-10: E11.65 01/25/2017 Active Vitamin D deficiency, unspecified ICD-9: 268.9 ICD-10: E55.9 09/20/2017 Active Essential (primary) hypertension ICD-9: 401.9 ICD-10: I10 05/26/2015 Active Dysuria ICD-9: 788.1 ICD-10: R30.0 08/03/2016 Active Fracture of other parts of pelvis, subsequent encounter for fracture with delayed healing ICD-9: V54.19 ICD-10: S32.89XG 08/03/2016 Active Unilateral inguinal hernia, without obstruction or gangrene , recurrent ICD-9: 550.91 ICD-10: K40.91 08/03/2016 Active Impacted cerumen, right ear ICD-9: 389.8 ICD-10: H61.21 09/29/2015 Active Type 1 diabetes mellitus without complications ICD-9: 250.00 ICD-10: E10.9 05/26/2015 Active Elevated digoxin level ICD-9: 796.0 06/30/2015 Active Diabetes Unknown 05/27/2015 Active Hypertension Unknown 05/27/2015 Active ATRIAL FIBRILLATION ICD-9: 427.31 05/26/2015 Active DIABETES TYPE II ICD-9 : 250.00 05/26/2015 Active ESSENTIAL HYPERTENSION ICD-9: 401.9 05/26/2015 Active Medications Medication Codes Instructions Start Date Stop Date Status Fill Instructions amlodipine 5 mg tablet RxNorm: 257382 TAKE ONE TABLET BY MOUTH DAILY 09/04/2018 05/01/2019 Active amlodipine 5 mg tablet RxNorm: 629456 TAKE ONE TABLET BY MOUTH DAILY 06/08/2018 09/03/2018 Inactive tamsulosin 0.4 mg capsule RxNorm: 870710 TAKE ONE CAPSULE BY MOUTH AT BEDTIME 05/19/2018 02/12/2019 Active amiodarone 200 mg tablet RxNorm: 856827 TAKE ONE TABLET BY MOUTH DAILY 04/10/2018 12/30/2019 Active amlodipine 5 mg tablet RxNorm: 982797 TAKE ONE TABLET BY MOUTH DAILY 11/28/2017 05/26/2018 Inactive atenolol 50 mg tablet RxNorm: 095981 TAKE ONE TABLET BY MOUTH DAILY 11/14/2017 10/28/2020 Active atenolol 50 mg tablet RxNorm: 624456 TAKE ONE TABLET BY MOUTH DAILY 11/14/2017 11/13/2017 Inactive amiodarone 200 mg tablet RxNorm: 252202 TAKE ONE TABLET BY MOUTH DAILY 10/10/2017 04/07/2018 Inactive Vitamin D2 50,000 unit capsule RxNorm: 005869 1 Capsule(s) PO QW x 12 weeks and 2000 units daily 09/27/2017 12/25/2017 Inactive Take with daily 2,000 unit capsule doxycycline hyclate 100 mg tablet RxNorm: 775721 1 Tablet(s) PO BID 09/27/2017 10/03/2017 Inactive Take probiotic BID with ABT doxycycline hyclate 100 mg tablet RxNorm: 370768 1 Tablet(s) PO BID 09/27/2017 09/26/2017 Inactive Take probiotic BID with ABT atenolol 50 mg tablet RxNorm: 795827 TAKE ONE TABLET BY MOUTH DAILY 08/08/2017 11/13/2017 Inactive tamsulosin 0.4 mg capsule RxNorm: 899215 TAKE ONE CAPSULE BY MOUTH AT BEDTIME 05/09/2017 05/03/2018 Inactive amlodipine 5 mg tablet RxNorm: 341342 1 Tablet(s) PO daily 07/201708/11/2017 Inactive d/c 10mg RX -sent electronically in error amlodipine 10 mg tablet RxNorm: 146311 1 Tablet(s) PO daily 07/201703/14/2017 Inactive d/c 10mg RX atenolol 50 mg tablet RxNorm: 336312 1.5 Tablet(s) PO daily TAKE ONE TABLET BY MOUTH DAILY 02/15/2017 08/07/2017 Inactive atenolol 50 mg tablet RxNorm: 291685 TAKE ONE TABLET BY MOUTH DAILY 02/08/2017 02/14/2017 Inactive hydralazine 25 mg tablet RxNorm: 404426 1 Tablet(s) PO TID 05/24/2017 Inactive amlodipine 5 mg tablet RxNorm: 776619 1 Tablet(s) PO daily 03/14/2017 Inactive d/c 10mg RX albuterol sulfate 2.5 mg/3 mL (0.083 %) solution for nebulization RxNorm: 048399 3 Milliliter(s) INH QID 01/19/2017 Inactive DX: J44.9 albuterol sulfate 2.5 mg/3 mL (0.083 %) solution for nebulization RxNorm: 257916 3 Milliliter(s) INH QID 01/19/2017 Inactive DX: J44.9 amlodipine 10 mg tablet RxNorm: 998248 1 Tablet(s) PO daily 05/201701/24/2017 Inactive amiodarone 200 mg tablet RxNorm: 253361 TAKE ONE TABLET BY MOUTH DAILY 2017 10/06/2017 Inactive enalapril maleate 5 mg tablet RxNorm: 048199 1/2 Tablet(s) PO BID 10/12/2016 No Stop Date Active glimepiride 4 mg tablet RxNorm: 908043 TAKE ONE TABLET BY MOUTH DAILY 10/11/2016 01/24/2017 Inactive Vitamin D2 50,000 unit capsule RxNorm: 238947 1 Capsule(s) PO QW x 4 months 08/06/2016 09/19/2017 Inactive Vitamin D2 50,000 unit capsule RxNorm: 778009 1 Capsule(s) PO QW x 4 months 08/06/2016 08/05/2016 Inactive Microlet Lancet RxNorm : TEST ONCE DAILY 05/18/2016 11/13/2016 Inactive tamsulosin 0.4 mg capsule RxNorm: 868251 1 Tablet(s) PO QHS TAKE ONE CAPSULE BY MOUTH AT BEDTIME 05/18/2016 02/11/2017 Inactive Digox 125 mcg tablet RxNorm: 9235353 TAKE ONE TABLET BY MOUTH DAILY 05/04/2016 08/03/2016 Inactive Digox 125 mcg tablet RxNorm: 2967450 1 Tablet(s) PO daily TAKE ONE TABLET BY MOUTH DAILY 05/04/2016 08/03/2016 Inactive WANTS 90 DAY SUPPLY Microlet Lancet RxNorm : TEST ONCE DAILY 04/28/2016 10/24/2016 Inactive atenolol 50 mg-chlorthalidone 25 mg tablet RxNorm: 190128 TAKE ONE TABLET BY MOUTH DAILY 03/22/2016 06/06/2016 Inactive glimepiride 4 mg tablet RxNorm: 116123 TAKE ONE TABLET BY MOUTH DAILY 12/29/2015 08/24/2016 Inactive amiodarone 200 mg tablet RxNorm: 387575 1 Tablet(s) PO daily 12/15/2016 Inactive tamsulosin 0.4 mg capsule RxNorm: 664747 TAKE ONE CAPSULE BY MOUTH AT BEDTIME 12/08/2015 05/18/2016 Inactive Digox 125 mcg tablet RxNorm: 2525119 TAKE ONE TABLET BY MOUTH DAILY 10/20/2015 10/19/2015 Inactive WANTS 90 DAY SUPPLY Digox 125 mcg tablet RxNorm: 1790586 Tablet(s) TAKE ONE TABLET BY MOUTH DAILY 10/20/2015 04/16/2016 Inactive WANTS 90 DAY SUPPLY glimepiride 4 mg tablet RxNorm: 820372 1 Tablet(s) PO daily 03/27/2016 Inactive enalapril maleate 5 mg tablet RxNorm: 024690 1 Tablet(s) PO BID 09/30/2015 09/23/2016 Inactive tamsulosin ER 0.4 mg capsule,extended release 24 hr RxNorm: 614181 Capsule(s) TAKE ONE CAPSULE BY MOUTH AT BEDTIME 09/30/2015 12/07/2015 Inactive atenolol 50 mg-chlorthalidone 25 mg tablet RxNorm: 699268 TAKE ONE TABLET BY MOUTH DAILY 09/08/2015 03/05/2016 Inactive glimepiride 4 mg tablet RxNorm: 435734 1 Tablet(s) PO daily 09/29/2015 Inactive tamsulosin ER 0.4 mg capsule,extended release 24 hr RxNorm: 268597 TAKE ONE CAPSULE BY MOUTH AT BEDTIME 06/16/2015 Inactive atenolol 50 mg-chlorthalidone 25 mg tablet RxNorm: 901921 1 Tablet(s) PO daily 06/16/2015 09/07/2015 Inactive Digox 125 mcg tablet RxNorm: 6149973 1 Tablet(s) PO daily 05/3009/26/2015 Inactive tamsulosin ER 0.4 mg capsule,extended release 24 hr RxNorm: 942109 1 Capsule(s) PO Q 05/06/2015 05/05/2015 Inactive tamsulosin ER 0.4 mg capsule,extended release 24 hr RxNorm: 290573 1 Capsule(s) PO QHS 05/06/2015 06/04/2015 Inactive Microlet Lancet RxNorm : Miscellaneous test once daily 201402/15/2016 Inactive atorvastatin 40 mg tablet RxNorm: 579937 1 Tablet(s) PO QHS No Start Date Active Vitamin C 500 mg capsule,extended release RxNorm: 237027 1 Capsule(s) PO daily No Start Date Active Vitamin B-12 1,000 mcg tablet RxNorm: 602141 1 Tablet(s) PO daily No Start Date Active Ocuvite Adult 50+ oral RxNorm: oral No Start Date Active Vitamin D2 400 unit capsule RxNorm: 735142 1 Capsule(s) PO daily No Start Date Active Vitamin B-1 250 mg tablet RxNorm: 812054 1 Tablet(s) PO daily No Start Date Active niacin 500 mg capsule RxNorm: 608696 1 Capsule(s) PO daily No Start Date Active fenofibrate 160 mg tablet RxNorm: 630588 1 Tablet(s) PO daily No Start Date Active aspirin 325 mg tablet RxNorm: 134696 1 Tablet(s) PO daily No Start Date Active warfarin 5 mg tablet RxNorm: 003829 1 Tablet(s) PO daily No Start Date 06/06/2016 Inactive atenolol 50 mg-chlorthalidone 25 mg tablet RxNorm: 762565 1 Tablet(s) PO daily No Start Date 06/15/2015 Inactive Digox 250 mcg tablet RxNorm: 6406211 1 Tablet(s) PO daily No Start Date 05/29/2015 Inactive atenolol 50 mg tablet RxNorm: 794650 1 Tablet(s) PO daily No Start Date 02/07/2017 Inactive Microlet Lancet RxNorm : miscellaneous No Start Date 04/21/2015 Inactive amlodipine 5 mg tablet RxNorm: 266893 1 Tablet(s) PO daily No Start Date 2017 Inactive Xarelto 15 mg tablet RxNorm: 8363749 1 Tablet(s) PO QPM No Start Date 2017 Inactive aspirin 81 mg capsule,delayed release RxNorm: 354857 1 Capsule(s) PO daily No Start Date 2017 Inactive glimepiride 4 mg tablet RxNorm: 747044 1 Tablet(s) PO daily No Start Date 08/31/2015 Inactive amiodarone 200 mg tablet RxNorm: 404677 1 Tablet(s) PO daily No Start Date 12/21/2015 Inactive enalapril maleate 5 mg tablet RxNorm: 182059 1 Tablet(s) PO daily No Start Date 09/29/2015 Inactive Medication Administered No Medication Administered data Immunizations Vaccine Codes Date Status Zoster CVX: 121 09/07/2016 completed Influenza CVX: 141 08/16/2016 completed Influenza CVX: 141 08/08/2015 completed Influenza CVX: 141 08/07/2014 completed Assessments Condition Codes Effective Dates Encounter for general adult medical examination with abnormal findings ICD-10: Z00.01 ICD-9: V70.0 02/02/2018 Type 2 diabetes mellitus without complications ICD-10: E11.9 ICD-9: 250.00 01/17/2018 Rash and other nonspecific skin eruption ICD-10: R21 ICD-9: 782.1 01/17/2018 Chronic atrial fibrillation ICD-10: I48.2 ICD-9: 427.31 01/17/2018 Essential (primary) hypertension ICD-10: I10 ICD-9: 401.1 01/17/2018 Type 2 diabetes mellitus with hyperglycemia ICD-10: E11.65 ICD-9: 250.00 09/20/2017 Anemia in chronic kidney disease ICD-10: D63.1 ICD-9: 285.21 09/20/2017 Chronic kidney disease, stage 4 (severe) ICD-10: N18.4 ICD-9: 585.4 09/20/2017 Vitamin D deficiency, unspecified ICD-10: E55.9 ICD-9: 268.9 09/20/2017 Essential (primary) hypertension ICD-10: I10 ICD-9: 401.9 01/25/2017 Unilateral inguinal hernia, without obstruction or gangrene, recurrent ICD-10: K40.91 ICD-9: 550.91 08/04/2016 Fracture of other parts of pelvis, subsequent encounter for fracture with delayed healing ICD-10: S32.89XG ICD-9: V54.19 08/04/2016 Dysuria ICD-10: R30.0 ICD-9: 788.1 08/04/2016 Type 1 diabetes mellitus without complications ICD-10: E10.9 ICD-9: 250.00 09/30/2015 Impacted cerumen, right ear ICD-10: H61.21 ICD-9: 389.8 09/30/2015 ESSENTIAL HYPERTENSION ICD-9: 401.9 07/01 DIABETES TYPE II ICD-9: 250.00 2014 ATRIAL FIBRILLATION ICD-9: 427.31 2014 Elevated digoxin level ICD-9: 796.0 07/01 Reason For Visit Reason For Visit Effective Dates Notes Annual Medicare Wellness Exam 02/02/2018 diabetes mellitus 01/17/2018 diabetes mellitus 09/20/2017 diabetes mellitus 05/17/2017 diabetes mellitus 03/15/2017 diabetes mellitus 02/15/2017 Annual Medicare Wellness Exam 01/27/2017 diabetes mellitus 01/25/2017 hypoglycemia hypertension 01/11/2017 hypertension 10/12/2016 hip pain 08/04/2016 Hospital Follow Up 06/07/2016 hypertension 03/30/2016 hypertension 09/30/2015 hypertension 07/01/2015 hypertension 05/27/2015 Results Observation Observation Code Item Item Code Result Date %Hba1C Eif035 % HbA1c 88503-6 5.6 % 09/21/2017 %Hba1C Puo110 Gluc Ave 114 mg/dL 09/21/2017 Vitamin D 25 Oh Pws4686 VITAMIN D, 25 HYDROXY 23.11 ng/mL Comp Metabolic Ice928 NA 141 mEq/L 09/20/2017 Comp Metabolic Hyy216 K 4.5 mEq/L 09/20/2017 Comp Metabolic Zhj646 CL 108 mEq/L 09/20/2017 Comp Metabolic Yho527 CO2 27.0 mEq/L 09/20/2017 Comp Metabolic Xeh587 ANION GAP 11 09/20/2017 Comp Metabolic Ggt550 GLUCOSE 142 mg/dL 09/20/2017 Comp Metabolic Udn218 Creat 2.7 mg/dL 09/20/2017 Comp Metabolic Gkk865 eGFR 24 ml/min/1.73m2 09/20/2017 Comp Metabolic Kww904 BUN 43 mg/dL 09/20/2017 Comp Metabolic Byl085 B/C Ratio 15.8 Ratio 09/20/2017 Comp Metabolic Glv527 CALCIUM 8.9 mg/dL 09/20/2017 Comp Metabolic Wdd577 ALK PHOS 66 U/L 09/20/2017 Comp Metabolic Cbw290 AST(SGOT) 44 U/L 09/20/2017 Comp Metabolic Tio965 ALT(SGPT) 26 U/L 09/20/2017 Comp Metabolic Rkz581 BILI T 0.5 mg/dL 09/20/2017 Comp Metabolic Tmo602 ALBUMIN 3.3 g/dL 09/20/2017 Comp Metabolic Bdi066 TPRO 5.9 g/dL 09/20/2017 Comp Metabolic Xoi046 GLOB 2.6 g/dL 09/20/2017 Comp Metabolic Lpx971 A/G Ratio 1.3 Ratio 09/20/2017 Comp Metabolic Wuh525 Osmo 295 mOsmo 09/20/2017 Cbc With Differential Ord2 WBC 6.40 K/ul 09/20/2017 Cbc With Differential Ord2 RBC 3.34 M/ul 09/20/2017 Cbc With Differential Ord2 HGB 10.6 g/dl 09/20/2017 Cbc With Differential Ord2 HCT 32.8 % 09/20/2017 Cbc With Differential Ord2 Neut% 61.8 % 09/20/2017 Cbc With Differential Ord2 Lymph% 17.3 % 09/20/2017 Cbc With Differential Ord2 MCV 98.2 fl 09/20/2017 Cbc With Differential Ord2 [place]% 14.5 % 09/20/2017 Cbc With Differential Ord2 MCH 31.7 pg 09/20/2017 Cbc With Differential Ord2 Eos% 5.5 % 09/20/2017 Cbc With Differential Ord2 MCHC 32.3 pg 09/20/2017 Cbc With Differential Ord2 Baso% 0.9 % 09/20/2017 Cbc With Differential Ord2 PLT 235 K/ul 09/20/2017 Cbc With Differential Ord2 Neut ABS# 3.95 K/ul 09/20/2017 Cbc With Differential Ord2 RDW 14.9 % 09/20/2017 Cbc With Differential Ord2 Lymph ABS# 1.11 K/ul 09/20/2017 Cbc With Differential Ord2 [place] ABS# 0.9 K/ul 09/20/2017 Cbc With Differential Ord2 Eos ABS# 0.4 K/ul 09/20/2017 Cbc With Differential Ord2 Baso ABS# 0.1 K/ul 09/20/2017 %Hba1C Ubc515 % HbA1c 68825-1 5.6 % 05/18/2017 %Hba1C Xba954 Gluc Ave 114 mg/dL 05/18/2017 Comp Metabolic Kfi595 NA 140 mEq/L 05/17/2017 Comp Metabolic Bep071 K 4.7 mEq/L 05/17/2017 Comp Metabolic Dvw518 CL 112 mEq/L 05/17/2017 Comp Metabolic Ypc263 CO2 23.0 mEq/L 05/17/2017 Comp Metabolic Kyw589 ANION GAP 10 05/17/2017 Comp Metabolic Udn506 GLUCOSE 148 mg/dL 05/17/2017 Comp Metabolic Zjw494 Creat 2.7 mg/dL 05/17/2017 Comp Metabolic Ucp182 eGFR 24 ml/min/1.73m2 05/17/2017 Comp Metabolic Bqz177 BUN 32 mg/dL 05/17/2017 Comp Metabolic Vfj424 B/C Ratio 11.7 Ratio 05/17/2017 Comp Metabolic Tgm640 CALCIUM 8.4 mg/dL 05/17/2017 Comp Metabolic Gcc556 ALK PHOS 61 U/L 05/17/2017 Comp Metabolic Nuv230 AST(SGOT) 25 U/L 05/17/2017 Comp Metabolic Eie047 ALT(SGPT) 15 U/L 05/17/2017 Comp Metabolic Xyy548 BILI T 0.4 mg/dL 05/17/2017 Comp Metabolic Nsb058 ALBUMIN 3.2 g/dL 05/17/2017 Comp Metabolic Hke405 TPRO 5.4 g/dL 05/17/2017 Comp Metabolic Dfy662 GLOB 2.2 g/dL 05/17/2017 Comp Metabolic Zfe524 A/G Ratio 1.4 Ratio 05/17/2017 Comp Metabolic Zql942 Osmo 289 mOsmo 05/17/2017 Cbc With Differential Ord2 WBC 4.55 K/ul 05/17/2017 Cbc With Differential Ord2 RBC 3.47 M/ul 05/17/2017 Cbc With Differential Ord2 HGB 10.7 g/dl 05/17/2017 Cbc With Differential Ord2 Neut% 54.5 % 05/17/2017 Cbc With Differential Ord2 HCT 33.5 % 05/17/2017 Cbc With Differential Ord2 MCV 96.5 fl 05/17/2017 Cbc With Differential Ord2 Lymph% 23.5 % 05/17/2017 Cbc With Differential Ord2 MCH 30.8 pg 05/17/2017 Cbc With Differential Ord2 [place]% 15.4 % 05/17/2017 Cbc With Differential Ord2 MCHC 31.9 pg 05/17/2017 Cbc With Differential Ord2 Eos% 5.9 % 05/17/2017 Cbc With Differential Ord2 Baso% 0.7 % 05/17/2017 Cbc With Differential Ord2 PLT 106 K/ul 05/17/2017 Cbc With Differential Ord2 Neut ABS# 2.48 K/ul 05/17/2017 Cbc With Differential Ord2 RDW 14.8 % 05/17/2017 Cbc With Differential Ord2 Lymph ABS# 1.07 K/ul 05/17/2017 Cbc With Differential Ord2 [place] ABS# 0.7 K/ul 05/17/2017 Cbc With Differential Ord2 Eos ABS# 0.3 K/ul 05/17/2017 Cbc With Differential Ord2 Baso ABS# 0.0 K/ul 05/17/2017 Manual Differential Ord52 D-Neutr 84 % 01/26/2017 Manual Differential Ord52 D-Bands 1 % 01/26/2017 Manual Differential Ord52 D-[place] 4 % 01/26/2017 Manual Differential Ord52 D-Lymph 10 % 01/26/2017 Manual Differential Ord52 D-Eos 1 % 01/26/2017 %Hba1C Zpr705 % HbA1c 14818-5 5.5 % 01/26/2017 %Hba1C Pvx935 Gluc Ave 111 mg/dL 01/26/2017 Cbc With Differential Ord2 WBC 11.57 K/ul 01/26/2017 Cbc With Differential Ord2 RBC 3.81 M/ul 01/26/2017 Cbc With Differential Ord2 HGB 11.5 g/dl 01/26/2017 Cbc With Differential Ord2 HCT 35.7 % 01/26/2017 Cbc With Differential Ord2 Neut% 77.2 % 01/26/2017 Cbc With Differential Ord2 Lymph% 7.0 % 01/26/2017 Cbc With Differential Ord2 MCV 93.7 fl 01/26/2017 Cbc With Differential Ord2 MCH 30.2 pg 01/26/2017 Cbc With Differential Ord2 [place]% 14.3 % 01/26/2017 Cbc With Differential Ord2 Eos% 1.0 % 01/26/2017 Cbc With Differential Ord2 MCHC 32.2 pg 01/26/2017 Cbc With Differential Ord2 PLT 225 K/ul 01/26/2017 Cbc With Differential Ord2 Baso% 0.5 % 01/26/2017 Cbc With Differential Ord2 RDW 16.2 % 01/26/2017 Cbc With Differential Ord2 Neut ABS# 8.94 K/ul 01/26/2017 Cbc With Differential Ord2 Lymph ABS# 0.81 K/ul 01/26/2017 Cbc With Differential Ord2 [place] ABS# 1.7 K/ul 01/26/2017 Cbc With Differential Ord2 Eos ABS# 0.1 K/ul 01/26/2017 Cbc With Differential Ord2 Baso ABS# 0.1 K/ul 01/26/2017 Comp Metabolic Iyc756 NA 140 mEq/L 01/26/2017 Comp Metabolic Iyj686 K 5.0 mEq/L 01/26/2017 Comp Metabolic Zrl881 CL 111 mEq/L 01/26/2017 Comp Metabolic Uid249 CO2 21.0 mEq/L 01/26/2017 Comp Metabolic Qbu882 ANION GAP 13 01/26/2017 Comp Metabolic Pbd114 GLUCOSE 123 mg/dL 01/26/2017 Comp Metabolic Ipj541 Creat 2.9 mg/dL 01/26/2017 Comp Metabolic Mrs543 eGFR 23 ml/min/1.73m2 01/26/2017 Comp Metabolic Zza739 BUN 31 mg/dL 01/26/2017 Comp Metabolic Wxs560 B/C Ratio 10.8 Ratio 01/26/2017 Comp Metabolic Rfi904 CALCIUM 8.3 mg/dL 01/26/2017 Comp Metabolic Bxq157 ALK PHOS 59 U/L 01/26/2017 Comp Metabolic Isr242 AST(SGOT) 28 U/L 01/26/2017 Comp Metabolic Lns679 ALT(SGPT) 21 U/L 01/26/2017 Comp Metabolic Nho297 BILI T 0.9 mg/dL 01/26/2017 Comp Metabolic Xjn357 ALBUMIN 2.6 g/dL 01/26/2017 Comp Metabolic Nue602 TPRO 5.3 g/dL 01/26/2017 Comp Metabolic Bwy544 GLOB 2.7 g/dL 01/26/2017 Comp Metabolic Kdf672 A/G Ratio 1.0 Ratio 01/26/2017 Comp Metabolic Fkw105 Osmo 287 mOsmo 01/26/2017 %Hba1C Dbg816 % HbA1c 96511-8 6.2 % 08/04/2016 %Hba1C Jhw372 Gluc Ave 131 mg/dL 08/04/2016 Comp Metabolic Oyw864 NA 136 mEq/L 08/04/2016 Comp Metabolic Mum032 K 4.4 mEq/L 08/04/2016 Comp Metabolic Hwi911 CL 105 mEq/L 08/04/2016 Comp Metabolic Zqy049 CO2 25.0 mEq/L 08/04/2016 Comp Metabolic Oee396 ANION GAP 10 08/04/2016 Comp Metabolic Lyo650 GLUCOSE 190 mg/dL 08/04/2016 Comp Metabolic Jmh742 Creat 2.4 mg/dL 08/04/2016 Comp Metabolic Oal282 eGFR 28 ml/min/1.73m2 08/04/2016 Comp Metabolic Qqq417 BUN 24 mg/dL 08/04/2016 Comp Metabolic Llm045 B/C Ratio 10.0 Ratio 08/04/2016 Comp Metabolic Zye199 CALCIUM 8.8 mg/dL 08/04/2016 Comp Metabolic Fgx323 ALK PHOS 34 U/L 08/04/2016 Comp Metabolic Duk663 AST(SGOT) 23 U/L 08/04/2016 Comp Metabolic Plm780 ALT(SGPT) 18 U/L 08/04/2016 Comp Metabolic Jjf818 BILI T 0.5 mg/dL 08/04/2016 Comp Metabolic Fxi742 ALBUMIN 3.6 g/dL 08/04/2016 Comp Metabolic Ahs109 TPRO 5.9 g/dL 08/04/2016 Comp Metabolic Bfu867 GLOB 2.3 g/dL 08/04/2016 Comp Metabolic Knn235 A/G Ratio 1.6 Ratio 08/04/2016 Comp Metabolic Gzi295 Osmo 281 mOsmo 08/04/2016 Tsh Ord6 hTSH II 2.93 uIU/mL 08/04/2016 Vitamin D 25 Oh Dou2964 VITAMIN D, 25 HYDROXY 15.25 ng/mL Cbc With Differential Ord2 WBC 4.02 K/ul 08/04/2016 Cbc With Differential Ord2 RBC 3.17 M/ul 08/04/2016 Cbc With Differential Ord2 HGB 10.1 g/dl 08/04/2016 Cbc With Differential Ord2 Neut% 57.5 % 08/04/2016 Cbc With Differential Ord2 HCT 31.4 % 08/04/2016 Cbc With Differential Ord2 MCV 99.1 fl 08/04/2016 Cbc With Differential Ord2 Lymph% 22.9 % 08/04/2016 Cbc With Differential Ord2 MCH 31.9 pg 08/04/2016 Cbc With Differential Ord2 [place]% 15.4 % 08/04/2016 Cbc With Differential Ord2 Eos% 3.2 % 08/04/2016 Cbc With Differential Ord2 MCHC 32.2 pg 08/04/2016 Cbc With Differential Ord2 PLT 172 K/ul 08/04/2016 Cbc With Differential Ord2 Baso% 1.0 % 08/04/2016 Cbc With Differential Ord2 Neut ABS# 2.31 K/ul 08/04/2016 Cbc With Differential Ord2 RDW 14.8 % 08/04/2016 Cbc With Differential Ord2 Lymph ABS# 0.92 K/ul 08/04/2016 Cbc With Differential Ord2 [place] ABS# 0.6 K/ul 08/04/2016 Cbc With Differential Ord2 Eos ABS# 0.1 K/ul 08/04/2016 Cbc With Differential Ord2 Baso ABS# 0.0 K/ul 08/04/2016 Digoxin Ord9 DIGOXIN 1.1 NG/ML 05/30/2015 %Hba1C Ltx731 % HbA1c 86618-7 6.9 % 05/28/2015 %Hba1C Bqn072 Gluc Ave 151 mg/dL 05/28/2015 Digoxin Ord9 DIGOXIN 3.0 NG/ML 05/27/2015 Cbc With Differential Ord2 WBC 3.9 K/uL 05/27/2015 Cbc With Differential Ord2 LYM 0.8 K/uL 05/27/2015 Cbc With Differential Ord2 LYM% 21.7 % 05/27/2015 Cbc With Differential Ord2 NEUT/GRAN 2.6 K/uL 05/27/2015 Cbc With Differential Ord2 NEUT/GRAN % 66.1 % 05/27/2015 Cbc With Differential Ord2 MID 0.5 K/uL 05/27/2015 Cbc With Differential Ord2 MID% 12.2 % 05/27/2015 Cbc With Differential Ord2 RBC 3.73 M/uL 05/27/2015 Cbc With Differential Ord2 HGB 11.5 g/dL 05/27/2015 Cbc With Differential Ord2 HCT 35.6 % 05/27/2015 Cbc With Differential Ord2 MCV 96 fL 05/27/2015 Cbc With Differential Ord2 MCH 31 pg 05/27/2015 Cbc With Differential Ord2 MCHC 32 g/dL 05/27/2015 Cbc With Differential Ord2 PLT 114 K/uL 05/27/2015 Cbc With Differential Ord2 RDW 15.2 % 05/27/2015 Tsh Ord6 hTSH II 2.14 uIU/mL 05/27/2015 B12 [id number] B12 903.00 pg/ml 05/27/2015 Comp Metabolic Paa878 NA 135 mEq/L 05/27/2015 Comp Metabolic Cwj761 K 4.4 mEq/L 05/27/2015 Comp Metabolic Sqf495 CL 102 mEq/L 05/27/2015 Comp Metabolic Tsb755 CO2 26.0 mEq/L 05/27/2015 Comp Metabolic Vkj220 ANION GAP 11 05/27/2015 Comp Metabolic Muq839 GLUCOSE 303 mg/dL 05/27/2015 Comp Metabolic Jks531 Creat 1.9 mg/dL 05/27/2015 Comp Metabolic Hnl234 eGFR 36 ml/min/1.73m2 05/27/2015 Comp Metabolic Rsu258 BUN 30 mg/dL 05/27/2015 Comp Metabolic Vmw420 B/C Ratio 15.5 Ratio 05/27/2015 Comp Metabolic Ibn792 CALCIUM 9.0 mg/dL 05/27/2015 Comp Metabolic Lva217 ALK PHOS 31 U/L 05/27/2015 Comp Metabolic Nii086 AST(SGOT) 27 U/L 05/27/2015 Comp Metabolic Ilo717 ALT(SGPT) 25 U/L 05/27/2015 Comp Metabolic Taj239 BILI T 0.6 mg/dL 05/27/2015 Comp Metabolic Ycb203 ALBUMIN 3.7 g/dL 05/27/2015 Comp Metabolic Iqv248 TPRO 6.1 g/dL 05/27/2015 Comp Metabolic Imw192 GLOB 2.4 g/dL 05/27/2015 Comp Metabolic Eze206 A/G Ratio 1.5 Ratio 05/27/2015 Comp Metabolic Vut406 Osmo 288 mOsmo 05/27/2015 Review of Systems System Result Effective Dates Constitutional No recent illness 2017 Constitutional No chills 02/02/2018 Constitutional No diaphoresis 02/02/2018 Constitutional No fever 02/02/2018 Eyes No eye erythema 02/02/2018 Ears/Nose/Throat/Neck No nasal discharge 02/02/2018 Cardiovascular No chest pain/pressure Cardiovascular No dyspnea 02/02/2018 Respiratory No cough 02/02/2018 Respiratory No dyspnea 02/02/2018 Neurologic No alteration of consciousness 02/02/2018 Neurologic No mental status change 2017 Constitutional No recent illness 2017 Constitutional No anorexia 01/17/2018 Constitutional No night sweats 2017 Constitutional No chills 01/17/2018 Constitutional No diaphoresis 01/17/2018 Constitutional No fever 01/17/2018 Eyes No blindness 01/17/2018 Ears/Nose/Throat/Neck hearing loss 2017 Ears/Nose/Throat/Neck No nasal allergies 01/17/2018 Ears/Nose/Throat/Neck No nasal discharge 01/17/2018 Cardiovascular No chest pain/pressure Cardiovascular No dyspnea 01/17/2018 Respiratory No cough 01/17/2018 Respiratory No dyspnea 01/17/2018 Gastrointestinal No constipation 2017 Gastrointestinal No diarrhea 01/17/2018 Genitourinary/Nephrology No dysuria 01/17 Musculoskeletal No joint complaint 2017 Dermatologic rash 01/17/2018 Neurologic No alteration of consciousness 01/17/2018 Neurologic No mental status change 2017 Psychiatric No depression 01/17/2018 Constitutional No chills 09/20/2017 Constitutional No diaphoresis 09/20/2017 Constitutional No fever 09/20/2017 Eyes No blindness 09/20/2017 Ears/Nose/Throat/Neck hearing loss 2016 Ears/Nose/Throat/Neck No nasal allergies 09/20/2017 Ears/Nose/Throat/Neck No nasal discharge 09/20/2017 Cardiovascular No chest pain/pressure Cardiovascular No dyspnea 09/20/2017 Respiratory No cough 09/20/2017 Respiratory No dyspnea 09/20/2017 Gastrointestinal No constipation 2016 Gastrointestinal No diarrhea 09/20/2017 Genitourinary/Nephrology No dysuria 09/20 Musculoskeletal No joint complaint 2016 Dermatologic rash 09/20/2017 Neurologic No alteration of consciousness 09/20/2017 Neurologic No mental status change 2016 Constitutional No recent illness 2016 Constitutional No anorexia 09/20/2017 Constitutional No night sweats 2016 Psychiatric No depression 09/20/2017 Constitutional No chills 05/17/2017 Constitutional No diaphoresis 05/17/2017 Constitutional No fever 05/17/2017 Eyes No blindness 05/17/2017 Ears/Nose/Throat/Neck No nasal allergies 05/17/2017 Ears/Nose/Throat/Neck No nasal discharge 05/17/2017 Cardiovascular No chest pain/pressure 09/2017 Cardiovascular No dyspnea 05/17/2017 Respiratory No cough 05/17/2017 Respiratory No dyspnea 05/17/2017 Gastrointestinal No constipation 2016 Gastrointestinal No diarrhea 05/17/2017 Genitourinary/Nephrology No dysuria 05/17 Musculoskeletal No joint complaint 2016 Dermatologic rash 05/17/2017 Neurologic No alteration of consciousness 05/17/2017 Neurologic No mental status change 2016 Ears/Nose/Throat/Neck hearing loss 2016 Constitutional No chills 03/15/2017 Constitutional No diaphoresis 03/15/2017 Constitutional No fever 03/15/2017 Eyes No blindness 03/15/2017 Ears/Nose/Throat/Neck nasal allergies 07/2017 Ears/Nose/Throat/Neck nasal discharge 07/2017 Cardiovascular No chest pain/pressure 07/2017 Cardiovascular No dyspnea 03/15/2017 Respiratory cough 03/15/2017 Respiratory No dyspnea 03/15/2017 Gastrointestinal No constipation 2016 Gastrointestinal No diarrhea 03/15/2017 Genitourinary/Nephrology No dysuria 03/15 Musculoskeletal No joint complaint 2016 Dermatologic No rash 03/15/2017 Neurologic No alteration of consciousness 03/15/2017 Neurologic No mental status change 2016 Constitutional No chills 02/15/2017 Constitutional No diaphoresis 02/15/2017 Constitutional No fever 02/15/2017 Eyes No blindness 02/15/2017 Ears/Nose/Throat/Neck No nasal allergies 02/15/2017 Ears/Nose/Throat/Neck No nasal discharge 02/15/2017 Cardiovascular No chest pain/pressure 09/2017 Cardiovascular No dyspnea 02/15/2017 Respiratory No cough 02/15/2017 Respiratory No dyspnea 02/15/2017 Neurologic No alteration of consciousness 02/15/2017 Neurologic No mental status change 2016 Gastrointestinal No constipation 2016 Gastrointestinal No diarrhea 02/15/2017 Genitourinary/Nephrology No dysuria 02/15 Musculoskeletal No joint complaint 2016 Dermatologic No rash 02/15/2017 Constitutional No chills 01/27/2017 Constitutional No diaphoresis 01/27/2017 Constitutional No fever 01/27/2017 Eyes No eye erythema 01/27/2017 Ears/Nose/Throat/Neck No nasal allergies 01/27/2017 Ears/Nose/Throat/Neck No nasal discharge 01/27/2017 Cardiovascular No chest pain/pressure Cardiovascular No dyspnea 01/27/2017 Respiratory No cough 01/27/2017 Respiratory No dyspnea 01/27/2017 Neurologic No alteration of consciousness 01/27/2017 Neurologic No mental status change 2016 Constitutional recent illness 01/25/2017 Constitutional No anorexia 01/25/2017 Gastrointestinal No abdominal pain 2016 Gastrointestinal No constipation 2016 Gastrointestinal No diarrhea 01/25/2017 Constitutional No night sweats 2016 Constitutional No chills 01/25/2017 Constitutional No diaphoresis 01/25/2017 Constitutional fatigue 01/25/2017 Constitutional No fever 01/25/2017 Constitutional No insomnia 01/25/2017 Constitutional No malaise 01/25/2017 Constitutional No weight loss 01/25/2017 Constitutional No weight gain 01/25/2017 Eyes No eye erythema 01/25/2017 Eyes No eye discharge 01/25/2017 Respiratory cough 01/25/2017 Ears/Nose/Throat/Neck nasal allergies Ears/Nose/Throat/Neck nasal discharge Cardiovascular No chest pain/pressure Genitourinary/Nephrology No dysuria 01/25 Musculoskeletal joint complaint 2016 Dermatologic No rash 01/25/2017 Neurologic No alteration of consciousness 01/25/2017 Constitutional recent illness 01/11/2017 Constitutional No anorexia 01/11/2017 Constitutional No night sweats 2016 Constitutional No chills 01/11/2017 Constitutional No diaphoresis 01/11/2017 Constitutional fatigue 01/11/2017 Constitutional No fever 01/11/2017 Constitutional No insomnia 01/11/2017 Constitutional No malaise 01/11/2017 Eyes No eye discharge 01/11/2017 Eyes No eye erythema 01/11/2017 Ears/Nose/Throat/Neck nasal allergies 05/2017 Ears/Nose/Throat/Neck nasal discharge 05/2017 Cardiovascular No chest pain/pressure 05/2017 Respiratory cough 01/11/2017 Gastrointestinal No abdominal pain 2016 Gastrointestinal No constipation 2016 Gastrointestinal No diarrhea 01/11/2017 Genitourinary/Nephrology No dysuria 01/11 Musculoskeletal joint complaint 2016 Dermatologic No rash 01/11/2017 Neurologic No alteration of consciousness 01/11/2017 Constitutional No recent illness 2015 Constitutional No chills 10/12/2016 Constitutional fatigue 10/12/2016 Constitutional No fever 10/12/2016 Constitutional No insomnia 10/12/2016 Constitutional malaise 10/12/2016 Eyes No blindness 10/12/2016 Eyes No vision change 10/12/2016 Ears/Nose/Throat/Neck No dental pain 04/2016 Ears/Nose/Throat/Neck No dizziness 2015 Ears/Nose/Throat/Neck No dysphagia 2015 Ears/Nose/Throat/Neck No headache 2015 Ears/Nose/Throat/Neck No hearing loss 04/2016 Ears/Nose/Throat/Neck No nasal allergies 10/12/2016 Ears/Nose/Throat/Neck No sore throat 04/2016 Ears/Nose/Throat/Neck No postnasal drip 10/12/2016 Ears/Nose/Throat/Neck No sinus congestion 10/12/2016 Cardiovascular No chest pain/pressure 04/2016 Cardiovascular No dyspnea 10/12/2016 Cardiovascular No edema 10/12/2016 Cardiovascular fatigue 10/12/2016 Cardiovascular No near-syncope/dizziness 10/12/2016 Respiratory No chest tightness 2015 Respiratory No cough 10/12/2016 Respiratory No dyspnea 10/12/2016 Respiratory No pedal edema 10/12/2016 Gastrointestinal No abdominal pain 2015 Gastrointestinal No constipation 2015 Gastrointestinal No diarrhea 10/12/2016 Gastrointestinal No gastroesophageal reflux 10/12/2016 Gastrointestinal No nausea 10/12/2016 Gastrointestinal No vomiting 10/12/2016 Genitourinary/Nephrology No dysuria 10/12 Genitourinary/Nephrology No nocturia 04/2016 Genitourinary/Nephrology No urinary incontinence 10/12/2016 Musculoskeletal No stiffness 10/12/2016 Musculoskeletal No swelling 10/12/2016 Musculoskeletal No muscle weakness 2015 Musculoskeletal No myalgias 10/12/2016 Dermatologic No rash 10/12/2016 Dermatologic No sores 10/12/2016 Dermatologic No scar 10/12/2016 Neurologic No dizziness 10/12/2016 Neurologic No headache 10/12/2016 Neurologic No neck pain 10/12/2016 Neurologic No syncope 10/12/2016 Psychiatric No anxiety 10/12/2016 Psychiatric No depression 10/12/2016 Constitutional No recent illness 2015 Constitutional No chills 08/04/2016 Constitutional fatigue 08/04/2016 Constitutional No fever 08/04/2016 Constitutional No insomnia 08/04/2016 Constitutional malaise 08/04/2016 Eyes No blindness 08/04/2016 Eyes No vision change 08/04/2016 Ears/Nose/Throat/Neck No dental pain Ears/Nose/Throat/Neck No dizziness 2015 Ears/Nose/Throat/Neck No dysphagia 2015 Ears/Nose/Throat/Neck No headache 2015 Ears/Nose/Throat/Neck No hearing loss Ears/Nose/Throat/Neck No nasal allergies 08/04/2016 Ears/Nose/Throat/Neck No sore throat Ears/Nose/Throat/Neck No postnasal drip 08/04/2016 Ears/Nose/Throat/Neck No sinus congestion 08/04/2016 Cardiovascular No chest pain/pressure Cardiovascular No dyspnea 08/04/2016 Cardiovascular No edema 08/04/2016 Cardiovascular fatigue 08/04/2016 Cardiovascular No near-syncope/dizziness 08/04/2016 Respiratory No chest tightness 2015 Respiratory No cough 08/04/2016 Respiratory No dyspnea 08/04/2016 Respiratory No pedal edema 08/04/2016 Gastrointestinal No abdominal pain 2015 Gastrointestinal constipation 08/04/2016 Gastrointestinal No diarrhea 08/04/2016 Gastrointestinal No gastroesophageal reflux 08/04/2016 Gastrointestinal No nausea 08/04/2016 Gastrointestinal No vomiting 08/04/2016 Genitourinary/Nephrology No dysuria 08/04 Genitourinary/Nephrology No nocturia Genitourinary/Nephrology No urinary incontinence 08/04/2016 Musculoskeletal No stiffness 08/04/2016 Musculoskeletal No swelling 08/04/2016 Musculoskeletal No muscle weakness 2015 Musculoskeletal No myalgias 08/04/2016 Dermatologic No rash 08/04/2016 Dermatologic No sores 08/04/2016 Dermatologic No scar 08/04/2016 Neurologic No dizziness 08/04/2016 Neurologic No headache 08/04/2016 Neurologic No neck pain 08/04/2016 Neurologic No syncope 08/04/2016 Psychiatric No anxiety 08/04/2016 Psychiatric No depression 08/04/2016 Genitourinary/Nephrology testicular pain 08/04/2016 Constitutional No recent illness 2015 Constitutional No chills 06/07/2016 Constitutional fatigue 06/07/2016 Constitutional No fever 06/07/2016 Constitutional No insomnia 06/07/2016 Constitutional malaise 06/07/2016 Eyes No blindness 06/07/2016 Eyes No vision change 06/07/2016 Ears/Nose/Throat/Neck No dental pain 11/2015 Ears/Nose/Throat/Neck No dizziness 2015 Ears/Nose/Throat/Neck No dysphagia 2015 Ears/Nose/Throat/Neck No headache 2015 Ears/Nose/Throat/Neck No hearing loss 11/2015 Ears/Nose/Throat/Neck No nasal allergies 06/07/2016 Ears/Nose/Throat/Neck No sore throat 11/2015 Ears/Nose/Throat/Neck No postnasal drip 06/07/2016 Ears/Nose/Throat/Neck No sinus congestion 06/07/2016 Cardiovascular No chest pain/pressure 11/2015 Cardiovascular No dyspnea 06/07/2016 Cardiovascular No edema 06/07/2016 Cardiovascular fatigue 06/07/2016 Cardiovascular No near-syncope/dizziness 06/07/2016 Respiratory No chest tightness 2015 Respiratory No cough 06/07/2016 Respiratory No dyspnea 06/07/2016 Respiratory No pedal edema 06/07/2016 Gastrointestinal No abdominal pain 2015 Gastrointestinal No constipation 2015 Gastrointestinal No diarrhea 06/07/2016 Gastrointestinal No gastroesophageal reflux 06/07/2016 Gastrointestinal No nausea 06/07/2016 Gastrointestinal No vomiting 06/07/2016 Genitourinary/Nephrology No dysuria 06/07 Genitourinary/Nephrology No nocturia 11/2015 Genitourinary/Nephrology No urinary incontinence 06/07/2016 Musculoskeletal No stiffness 06/07/2016 Musculoskeletal No swelling 06/07/2016 Musculoskeletal No muscle weakness 2015 Musculoskeletal No myalgias 06/07/2016 Dermatologic No rash 06/07/2016 Dermatologic No sores 06/07/2016 Dermatologic No scar 06/07/2016 Neurologic No dizziness 06/07/2016 Neurologic No headache 06/07/2016 Neurologic No neck pain 06/07/2016 Neurologic No syncope 06/07/2016 Psychiatric No anxiety 06/07/2016 Psychiatric No depression 06/07/2016 Constitutional No recent illness 2015 Constitutional No chills 03/30/2016 Constitutional fatigue 03/30/2016 Constitutional No fever 03/30/2016 Constitutional No insomnia 03/30/2016 Constitutional malaise 03/30/2016 Eyes No blindness 03/30/2016 Eyes No vision change 03/30/2016 Ears/Nose/Throat/Neck No dental pain Ears/Nose/Throat/Neck No dizziness 2015 Ears/Nose/Throat/Neck No dysphagia 2015 Ears/Nose/Throat/Neck No headache 2015 Ears/Nose/Throat/Neck No hearing loss Ears/Nose/Throat/Neck No nasal allergies 03/30/2016 Ears/Nose/Throat/Neck No sore throat Ears/Nose/Throat/Neck No postnasal drip 03/30/2016 Ears/Nose/Throat/Neck No sinus congestion 03/30/2016 Cardiovascular No chest pain/pressure Cardiovascular No dyspnea 03/30/2016 Cardiovascular No edema 03/30/2016 Cardiovascular fatigue 03/30/2016 Cardiovascular No near-syncope/dizziness 03/30/2016 Respiratory No chest tightness 2015 Respiratory No cough 03/30/2016 Respiratory No dyspnea 03/30/2016 Respiratory No pedal edema 03/30/2016 Gastrointestinal No abdominal pain 2015 Gastrointestinal No constipation 2015 Gastrointestinal No diarrhea 03/30/2016 Gastrointestinal No gastroesophageal reflux 03/30/2016 Gastrointestinal No nausea 03/30/2016 Gastrointestinal No vomiting 03/30/2016 Genitourinary/Nephrology No dysuria 03/30 Genitourinary/Nephrology No nocturia Genitourinary/Nephrology No urinary incontinence 03/30/2016 Musculoskeletal No stiffness 03/30/2016 Musculoskeletal No swelling 03/30/2016 Musculoskeletal No muscle weakness 2015 Musculoskeletal No myalgias 03/30/2016 Dermatologic No rash 03/30/2016 Dermatologic No sores 03/30/2016 Dermatologic No scar 03/30/2016 Neurologic No dizziness 03/30/2016 Neurologic No headache 03/30/2016 Neurologic No neck pain 03/30/2016 Neurologic No syncope 03/30/2016 Psychiatric No anxiety 03/30/2016 Psychiatric No depression 03/30/2016 Constitutional No recent illness 2014 Constitutional No chills 09/30/2015 Constitutional fatigue 09/30/2015 Constitutional No fever 09/30/2015 Constitutional No insomnia 09/30/2015 Constitutional malaise 09/30/2015 Eyes No blindness 09/30/2015 Eyes No vision change 09/30/2015 Ears/Nose/Throat/Neck No dental pain Ears/Nose/Throat/Neck No dizziness 2014 Ears/Nose/Throat/Neck No dysphagia 2014 Ears/Nose/Throat/Neck No headache 2014 Ears/Nose/Throat/Neck No hearing loss Ears/Nose/Throat/Neck No nasal allergies 09/30/2015 Ears/Nose/Throat/Neck No sore throat Ears/Nose/Throat/Neck No postnasal drip 09/30/2015 Ears/Nose/Throat/Neck No sinus congestion 09/30/2015 Cardiovascular No chest pain/pressure Cardiovascular No dyspnea 09/30/2015 Cardiovascular No edema 09/30/2015 Cardiovascular exercise intolerance 09/30 Cardiovascular fatigue 09/30/2015 Cardiovascular No near-syncope/dizziness 09/30/2015 Respiratory No chest tightness 2014 Respiratory No cough 09/30/2015 Respiratory No dyspnea 09/30/2015 Respiratory No pedal edema 09/30/2015 Gastrointestinal No abdominal pain 2014 Gastrointestinal No constipation 2014 Gastrointestinal No diarrhea 09/30/2015 Gastrointestinal No gastroesophageal reflux 09/30/2015 Gastrointestinal No nausea 09/30/2015 Gastrointestinal No vomiting 09/30/2015 Genitourinary/Nephrology No dysuria 09/30 Genitourinary/Nephrology No nocturia Genitourinary/Nephrology No urinary incontinence 09/30/2015 Musculoskeletal No stiffness 09/30/2015 Musculoskeletal No swelling 09/30/2015 Musculoskeletal No muscle weakness 2014 Musculoskeletal No myalgias 09/30/2015 Dermatologic No rash 09/30/2015 Dermatologic No sores 09/30/2015 Dermatologic No scar 09/30/2015 Neurologic No dizziness 09/30/2015 Neurologic No headache 09/30/2015 Neurologic No neck pain 09/30/2015 Neurologic No syncope 09/30/2015 Psychiatric No anxiety 09/30/2015 Psychiatric No depression 09/30/2015 Constitutional No recent illness 2014 Constitutional No chills 07/01/2015 Constitutional fatigue 07/01/2015 Constitutional No fever 07/01/2015 Constitutional No insomnia 07/01/2015 Constitutional malaise 07/01/2015 Eyes No blindness 07/01/2015 Eyes No vision change 07/01/2015 Ears/Nose/Throat/Neck No dental pain Ears/Nose/Throat/Neck No dizziness 2014 Ears/Nose/Throat/Neck No dysphagia 2014 Ears/Nose/Throat/Neck No headache 2014 Ears/Nose/Throat/Neck No hearing loss Ears/Nose/Throat/Neck No nasal allergies 07/01/2015 Ears/Nose/Throat/Neck No sore throat Ears/Nose/Throat/Neck No postnasal drip 07/01/2015 Ears/Nose/Throat/Neck No sinus congestion 07/01/2015 Cardiovascular No chest pain/pressure Cardiovascular No dyspnea 07/01/2015 Cardiovascular No edema 07/01/2015 Cardiovascular exercise intolerance 07/01 Cardiovascular fatigue 07/01/2015 Cardiovascular No near-syncope/dizziness 07/01/2015 Respiratory No chest tightness 2014 Respiratory No cough 07/01/2015 Respiratory No dyspnea 07/01/2015 Respiratory No pedal edema 07/01/2015 Gastrointestinal No abdominal pain 2014 Gastrointestinal No constipation 2014 Gastrointestinal No diarrhea 07/01/2015 Gastrointestinal No gastroesophageal reflux 07/01/2015 Gastrointestinal No nausea 07/01/2015 Gastrointestinal No vomiting 07/01/2015 Genitourinary/Nephrology No dysuria 07/01 Genitourinary/Nephrology No nocturia Genitourinary/Nephrology No urinary incontinence 07/01/2015 Musculoskeletal No stiffness 07/01/2015 Musculoskeletal No swelling 07/01/2015 Musculoskeletal No muscle weakness 2014 Musculoskeletal No myalgias 07/01/2015 Dermatologic No rash 07/01/2015 Dermatologic No sores 07/01/2015 Dermatologic No scar 07/01/2015 Neurologic No dizziness 07/01/2015 Neurologic No headache 07/01/2015 Neurologic No neck pain 07/01/2015 Neurologic No syncope 07/01/2015 Psychiatric No anxiety 07/01/2015 Psychiatric No depression 07/01/2015 Constitutional No recent illness 2014 Constitutional No chills 05/27/2015 Constitutional fatigue 05/27/2015 Constitutional No fever 05/27/2015 Constitutional No insomnia 05/27/2015 Constitutional malaise 05/27/2015 Eyes No blindness 05/27/2015 Eyes No vision change 05/27/2015 Ears/Nose/Throat/Neck No dental pain Ears/Nose/Throat/Neck No dizziness 2014 Ears/Nose/Throat/Neck No dysphagia 2014 Ears/Nose/Throat/Neck No headache 2014 Ears/Nose/Throat/Neck No hearing loss Ears/Nose/Throat/Neck No nasal allergies 05/27/2015 Ears/Nose/Throat/Neck No sore throat Ears/Nose/Throat/Neck No postnasal drip 05/27/2015 Ears/Nose/Throat/Neck No sinus congestion 05/27/2015 Cardiovascular No chest pain/pressure Cardiovascular No dyspnea 05/27/2015 Cardiovascular No edema 05/27/2015 Cardiovascular exercise intolerance 05/27 Cardiovascular fatigue 05/27/2015 Cardiovascular No near-syncope/dizziness 05/27/2015 Respiratory No chest tightness 2014 Respiratory No cough 05/27/2015 Respiratory No dyspnea 05/27/2015 Respiratory No pedal edema 05/27/2015 Gastrointestinal No abdominal pain 2014 Gastrointestinal No constipation 2014 Gastrointestinal No diarrhea 05/27/2015 Gastrointestinal No gastroesophageal reflux 05/27/2015 Gastrointestinal No nausea 05/27/2015 Gastrointestinal No vomiting 05/27/2015 Genitourinary/Nephrology No dysuria 05/27 Genitourinary/Nephrology No nocturia Genitourinary/Nephrology No urinary incontinence 05/27/2015 Musculoskeletal No stiffness 05/27/2015 Musculoskeletal No swelling 05/27/2015 Musculoskeletal No muscle weakness 2014 Musculoskeletal No myalgias 05/27/2015 Dermatologic No rash 05/27/2015 Dermatologic No sores 05/27/2015 Dermatologic No scar 05/27/2015 Neurologic No dizziness 05/27/2015 Neurologic No headache 05/27/2015 Neurologic No neck pain 05/27/2015 Neurologic No syncope 05/27/2015 Psychiatric No anxiety 05/27/2015 Psychiatric No depression 05/27/2015 Physical Exam Exam Name System Name Item Name Status Result Effective Dates Notes Full Exam - General 1994 Constitutional general appearance Overall: well developed 02/02/2018 None Full Exam - General 1994 Constitutional general appearance Overall: in no acute distress 02/02/2018 None Full Exam - General 1994 Constitutional general appearance Overall: well nourished 02/02/2018 None Full Exam - General 1994 Eyes conjunctiva /eyelids Overall: conjunctiva clear 02/02/2018 None Full Exam - General 1994 Eyes conjunctiva /eyelids Overall: eyelids normal 02/02/2018 None Full Exam - General 1995 Ears/Nose/Throat lips/teeth/gingiva Overall: benign lips 02/02/2018 None Full Exam - General 1994 Respiratory respiratory effort/rhythm Overall: no retractions 02/02/2018 None Full Exam - General 1994 Respiratory respiratory effort/rhythm Overall: normal rate 02/02/2018 None Full Exam - General 1994 Musculoskeletal head and neck Overall: head atraumatic 02/02/2018 None Full Exam - General 1994 Neurologic cranial nerves Overall: crainial nerves 2 - 12 grossly intact 02/02/2018 None Full Exam - General 1994 Psychiatric orientation/consciousness Overall: oriented to person, place and time 02/02/2018 None Full Exam - General 1994 Psychiatric mood and affect Overall: normal mood and affect 02/02/2018 None Full Exam - General 1994 Psychiatric appearance Overall: well-groomed, good eye contact 02/02/2018 None Full Exam - General 1994 Constitutional general appearance Development: well developed 01/17/2018 None Full Exam - General 1994 Constitutional general appearance Development: appears stated age 0301/17/2018 None Full Exam - General 1994 Constitutional general appearance Hygiene/Attention to Grooming: good hygiene 01/17/2018 None Full Exam - General 1994 Eyes conjunctiva /eyelids Overall: conjunctiva clear 01/17/2018 None Full Exam - General 1994 Eyes conjunctiva /eyelids Overall: cornea clear 01/17/2018 None Full Exam - General 1994 Eyes conjunctiva /eyelids Overall: eyelids normal 01/17/2018 None Full Exam - General 1994 Eyes pupils and irises Overall: pupils equal, round, reactive to light and accomodation 01/17/2018 None Full Exam - General 1994 Ears/Nose/Throat otoscopic exam Overall: external auditory canals clear 01/17/2018 None Full Exam - General 1994 Ears/Nose/Throat otoscopic exam Overall: tympanic membranes clear 01/17/2018 None Full Exam - General 1994 Ears/Nose/Throat lips/teeth/gingiva Overall: benign lips 01/17/2018 None Full Exam - General 1994 Ears/Nose/Throat lips/teeth/gingiva Overall: normal dentition 01/17/2018 None Full Exam - General 1994 Ears/Nose/Throat oral cavity/pharynx/larynx Overall: oral mucosa clear 01/17/2018 None Full Exam - General 1994 Ears/Nose/Throat oral cavity/pharynx/larynx Overall: oropharyngeal mucosa clear 01/17/2018 None Full Exam - General 1994 Ears/Nose/Throat oral cavity/pharynx/larynx Overall: hypopharynx benign 01/17/2018 None Full Exam - General 1994 Ears/Nose/Throat oral cavity/pharynx/larynx Overall: no masses 01/17/2018 None Full Exam - General 1994 Respiratory auscultation Overall: breath sounds clear bilaterally 01/17/2018 None Full Exam - General 1994 Respiratory respiratory effort/rhythm Overall: no retractions 01/17/2018 None Full Exam - General 1994 Respiratory respiratory effort/rhythm Overall: normal rate 01/17/2018 None Full Exam - General 1994 Cardiovascular extremities Overall: no clubbing 01/17/2018 None Full Exam - General 1994 Cardiovascular auscultation of heart Overall: regular rate 01/17/2018 None Full Exam - General 1994 Cardiovascular auscultation of heart Overall: normal heart sounds 01/17/2018 None Full Exam - General 1994 Cardiovascular auscultation of heart Systolic murmur grade: II/ 01/17/2018 None Full Exam - General 1994 Abdomen abdominal exam Overall: no tenderness 01/17/2018 None Full Exam - General 1994 Abdomen abdominal exam Overall: normal bowel sounds 01/17/2018 None Full Exam - General 1994 Musculoskeletal spine, ribs and pelvis Overall: spine benign 01/17/2018 None Full Exam - General 1994 Musculoskeletal spine, ribs and pelvis Overall: sacroiliac joint benign 01/17/2018 None Full Exam - General 1994 Musculoskeletal spine, ribs and pelvis Overall: good posture 01/17/2018 None Full Exam - General 1994 Musculoskeletal head and neck Overall: head atraumatic 01/17/2018 None Full Exam - General 1994 Musculoskeletal head and neck Overall: cervical spine benign 01/17/2018 None Full Exam - General 1994 Integument inspection of skin Dermatitis: excoriation 01/17/2018 posterior neck, upper back, bilateral arms - few scattered sores Full Exam - General 1994 Neurologic deep tendon reflexes Overall: deep tendon reflexes intact 01/17/2018 None Full Exam - General 1994 Neurologic cranial nerves Overall: crainial nerves 2 - 12 grossly intact 01/17/2018 None Full Exam - General 1994 Psychiatric orientation/consciousness Overall: oriented to person, place and time 01/17/2018 None Full Exam - General 1994 Psychiatric mood and affect Overall: normal mood and affect 01/17/2018 None Full Exam - General 1994 Constitutional general appearance Development: well developed 09/20/2017 None Full Exam - General 1994 Constitutional general appearance Development: appears stated age 1109/20/2017 None Full Exam - General 1994 Constitutional general appearance Hygiene/Attention to Grooming: good hygiene 09/20/2017 None Full Exam - General 1994 Eyes conjunctiva /eyelids Overall: conjunctiva clear 09/20/2017 None Full Exam - General 1994 Eyes conjunctiva /eyelids Overall: cornea clear 09/20/2017 None Full Exam - General 1994 Eyes conjunctiva /eyelids Overall: eyelids normal 09/20/2017 None Full Exam - General 1994 Eyes pupils and irises Overall: pupils equal, round, reactive to light and accomodation 09/20/2017 None Full Exam - General 1994 Ears/Nose/Throat otoscopic exam Overall: external auditory canals clear 09/20/2017 None Full Exam - General 1994 Ears/Nose/Throat otoscopic exam Overall: tympanic membranes clear 09/20/2017 None Full Exam - General 1994 Ears/Nose/Throat lips/teeth/gingiva Overall: benign lips 09/20/2017 None Full Exam - General 1994 Ears/Nose/Throat lips/teeth/gingiva Overall: normal dentition 09/20/2017 None Full Exam - General 1994 Ears/Nose/Throat oral cavity/pharynx/larynx Overall: oral mucosa clear 09/20/2017 None Full Exam - General 1994 Ears/Nose/Throat oral cavity/pharynx/larynx Overall: oropharyngeal mucosa clear 09/20/2017 None Full Exam - General 1994 Ears/Nose/Throat oral cavity/pharynx/larynx Overall: hypopharynx benign 09/20/2017 None Full Exam - General 1994 Ears/Nose/Throat oral cavity/pharynx/larynx Overall: no masses 09/20/2017 None Full Exam - General 1994 Respiratory auscultation Overall: breath sounds clear bilaterally 09/20/2017 None Full Exam - General 1994 Respiratory respiratory effort/rhythm Overall: no retractions 09/20/2017 None Full Exam - General 1994 Respiratory respiratory effort/rhythm Overall: normal rate 09/20/2017 None Full Exam - General 1994 Cardiovascular extremities Overall: no clubbing 09/20/2017 None Full Exam - General 1994 Cardiovascular auscultation of heart Overall: regular rate 09/20/2017 None Full Exam - General 1994 Cardiovascular auscultation of heart Overall: normal heart sounds 09/20/2017 None Full Exam - General 1994 Cardiovascular auscultation of heart Systolic murmur grade: II/ 09/20/2017 None Full Exam - General 1994 Abdomen abdominal exam Overall: no tenderness 09/20/2017 None Full Exam - General 1994 Abdomen abdominal exam Overall: normal bowel sounds 09/20/2017 None Full Exam - General 1994 Musculoskeletal spine, ribs and pelvis Overall: spine benign 09/20/2017 None Full Exam - General 1994 Musculoskeletal spine, ribs and pelvis Overall: sacroiliac joint benign 09/20/2017 None Full Exam - General 1994 Musculoskeletal spine, ribs and pelvis Overall: good posture 09/20/2017 None Full Exam - General 1994 Musculoskeletal head and neck Overall: head atraumatic 09/20/2017 None Full Exam - General 1994 Musculoskeletal head and neck Overall: cervical spine benign 09/20/2017 None Full Exam - General 1994 Neurologic deep tendon reflexes Overall: deep tendon reflexes intact 09/20/2017 None Full Exam - General 1994 Neurologic cranial nerves Overall: crainial nerves 2 - 12 grossly intact 09/20/2017 None Full Exam - General 1994 Psychiatric orientation/consciousness Overall: oriented to person, place and time 09/20/2017 None Full Exam - General 1994 Psychiatric mood and affect Overall: normal mood and affect 09/20/2017 None Full Exam - General 1994 Integument inspection of skin Dermatitis: excoriation 09/20/2017 posterior neck, lower back at waist line, bilateral arms, left flank Full Exam - General 1994 Constitutional general appearance Development: well developed 05/17/2017 None Full Exam - General 1994 Constitutional general appearance Development: appears stated age 0705/17/2017 None Full Exam - General 1994 Constitutional general appearance Hygiene/Attention to Grooming: good hygiene 05/17/2017 None Full Exam - General 1994 Eyes conjunctiva /eyelids Overall: conjunctiva clear 05/17/2017 None Full Exam - General 1994 Eyes conjunctiva /eyelids Overall: cornea clear 05/17/2017 None Full Exam - General 1994 Eyes conjunctiva /eyelids Overall: eyelids normal 05/17/2017 None Full Exam - General 1994 Eyes pupils and irises Overall: pupils equal, round, reactive to light and accomodation 05/17/2017 None Full Exam - General 1994 Ears/Nose/Throat otoscopic exam Overall: external auditory canals clear 05/17/2017 None Full Exam - General 1994 Ears/Nose/Throat otoscopic exam Overall: tympanic membranes clear 05/17/2017 None Full Exam - General 1994 Ears/Nose/Throat lips/teeth/gingiva Overall: benign lips 05/17/2017 None Full Exam - General 1994 Ears/Nose/Throat lips/teeth/gingiva Overall: normal dentition 05/17/2017 None Full Exam - General 1994 Ears/Nose/Throat oral cavity/pharynx/larynx Overall: oral mucosa clear 05/17/2017 None Full Exam - General 1994 Ears/Nose/Throat oral cavity/pharynx/larynx Overall: oropharyngeal mucosa clear 05/17/2017 None Full Exam - General 1994 Ears/Nose/Throat oral cavity/pharynx/larynx Overall: hypopharynx benign 05/17/2017 None Full Exam - General 1994 Ears/Nose/Throat oral cavity/pharynx/larynx Overall: no masses 05/17/2017 None Full Exam - General 1994 Respiratory auscultation Overall: breath sounds clear bilaterally 05/17/2017 None Full Exam - General 1994 Respiratory respiratory effort/rhythm Overall: no retractions 05/17/2017 None Full Exam - General 1994 Respiratory respiratory effort/rhythm Overall: normal rate 05/17/2017 None Full Exam - General 1994 Cardiovascular extremities Overall: no clubbing 05/17/2017 None Full Exam - General 1994 Cardiovascular auscultation of heart Overall: regular rate 05/17/2017 None Full Exam - General 1994 Cardiovascular auscultation of heart Overall: normal heart sounds 05/17/2017 None Full Exam - General 1994 Abdomen abdominal exam Overall: no tenderness 05/17/2017 None Full Exam - General 1994 Abdomen abdominal exam Overall: normal bowel sounds 05/17/2017 None Full Exam - General 1994 Musculoskeletal spine, ribs and pelvis Overall: spine benign 05/17/2017 None Full Exam - General 1994 Musculoskeletal spine, ribs and pelvis Overall: sacroiliac joint benign 05/17/2017 None Full Exam - General 1994 Musculoskeletal spine, ribs and pelvis Overall: good posture 05/17/2017 None Full Exam - General 1994 Musculoskeletal head and neck Overall: head atraumatic 05/17/2017 None Full Exam - General 1994 Musculoskeletal head and neck Overall: cervical spine benign 05/17/2017 None Full Exam - General 1994 Neurologic deep tendon reflexes Overall: deep tendon reflexes intact 05/17/2017 None Full Exam - General 1994 Neurologic cranial nerves Overall: crainial nerves 2 - 12 grossly intact 05/17/2017 None Full Exam - General 1994 Psychiatric orientation/consciousness Overall: oriented to person, place and time 05/17/2017 None Full Exam - General 1994 Psychiatric mood and affect Overall: normal mood and affect 05/17/2017 None Full Exam - General 1994 Cardiovascular auscultation of heart Systolic murmur grade: II/ 05/17/2017 None Full Exam - General 1994 Constitutional general appearance Development: well developed 03/15/2017 None Full Exam - General 1994 Constitutional general appearance Development: appears stated age 0503/15/2017 None Full Exam - General 1994 Constitutional general appearance Hygiene/Attention to Grooming: good hygiene 03/15/2017 None Full Exam - General 1994 Eyes conjunctiva /eyelids Overall: conjunctiva clear 03/15/2017 None Full Exam - General 1994 Eyes conjunctiva /eyelids Overall: cornea clear 03/15/2017 None Full Exam - General 1994 Eyes conjunctiva /eyelids Overall: eyelids normal 03/15/2017 None Full Exam - General 1994 Eyes pupils and irises Overall: pupils equal, round, reactive to light and accomodation 03/15/2017 None Full Exam - General 1994 Ears/Nose/Throat otoscopic exam Overall: external auditory canals clear 03/15/2017 None Full Exam - General 1994 Ears/Nose/Throat otoscopic exam Overall: tympanic membranes clear 03/15/2017 None Full Exam - General 1994 Ears/Nose/Throat lips/teeth/gingiva Overall: benign lips 03/15/2017 None Full Exam - General 1994 Ears/Nose/Throat lips/teeth/gingiva Overall: normal dentition 03/15/2017 None Full Exam - General 1994 Ears/Nose/Throat oral cavity/pharynx/larynx Overall: oral mucosa clear 03/15/2017 None Full Exam - General 1994 Ears/Nose/Throat oral cavity/pharynx/larynx Overall: oropharyngeal mucosa clear 03/15/2017 None Full Exam - General 1994 Ears/Nose/Throat oral cavity/pharynx/larynx Overall: hypopharynx benign 03/15/2017 None Full Exam - General 1994 Ears/Nose/Throat oral cavity/pharynx/larynx Overall: no masses 03/15/2017 None Full Exam - General 1994 Respiratory auscultation Overall: breath sounds clear bilaterally 03/15/2017 None Full Exam - General 1994 Respiratory respiratory effort/rhythm Overall: no retractions 03/15/2017 None Full Exam - General 1994 Respiratory respiratory effort/rhythm Overall: normal rate 03/15/2017 None Full Exam - General 1994 Cardiovascular extremities Overall: no clubbing 03/15/2017 None Full Exam - General 1994 Cardiovascular auscultation of heart Overall: regular rate 03/15/2017 None Full Exam - General 1994 Cardiovascular auscultation of heart Overall: normal heart sounds 03/15/2017 None Full Exam - General 1994 Abdomen abdominal exam Overall: no tenderness 03/15/2017 None Full Exam - General 1994 Abdomen abdominal exam Overall: normal bowel sounds 03/15/2017 None Full Exam - General 1994 Musculoskeletal spine, ribs and pelvis Overall: spine benign 03/15/2017 None Full Exam - General 1994 Musculoskeletal spine, ribs and pelvis Overall: sacroiliac joint benign 03/15/2017 None Full Exam - General 1994 Musculoskeletal spine, ribs and pelvis Overall: good posture 03/15/2017 None Full Exam - General 1994 Musculoskeletal head and neck Overall: head atraumatic 03/15/2017 None Full Exam - General 1994 Musculoskeletal head and neck Overall: cervical spine benign 03/15/2017 None Full Exam - General 1994 Neurologic deep tendon reflexes Overall: deep tendon reflexes intact 03/15/2017 None Full Exam - General 1994 Neurologic cranial nerves Overall: crainial nerves 2 - 12 grossly intact 03/15/2017 None Full Exam - General 1994 Psychiatric orientation/consciousness Overall: oriented to person, place and time 03/15/2017 None Full Exam - General 1994 Psychiatric mood and affect Overall: normal mood and affect 03/15/2017 None Full Exam - General 1994 Constitutional general appearance Development: well developed 02/15/2017 None Full Exam - General 1994 Constitutional general appearance Development: appears stated age 0402/15/2017 None Full Exam - General 1994 Constitutional general appearance Hygiene/Attention to Grooming: good hygiene 02/15/2017 None Full Exam - General 1994 Eyes conjunctiva /eyelids Overall: conjunctiva clear 02/15/2017 None Full Exam - General 1994 Eyes conjunctiva /eyelids Overall: cornea clear 02/15/2017 None Full Exam - General 1994 Eyes conjunctiva /eyelids Overall: eyelids normal 02/15/2017 None Full Exam - General 1994 Eyes pupils and irises Overall: pupils equal, round, reactive to light and accomodation 02/15/2017 None Full Exam - General 1994 Ears/Nose/Throat otoscopic exam Overall: external auditory canals clear 02/15/2017 None Full Exam - General 1994 Ears/Nose/Throat otoscopic exam Overall: tympanic membranes clear 02/15/2017 None Full Exam - General 1994 Ears/Nose/Throat lips/teeth/gingiva Overall: benign lips 02/15/2017 None Full Exam - General 1994 Ears/Nose/Throat lips/teeth/gingiva Overall: normal dentition 02/15/2017 None Full Exam - General 1994 Ears/Nose/Throat oral cavity/pharynx/larynx Overall: oral mucosa clear 02/15/2017 None Full Exam - General 1994 Ears/Nose/Throat oral cavity/pharynx/larynx Overall: oropharyngeal mucosa clear 02/15/2017 None Full Exam - General 1994 Ears/Nose/Throat oral cavity/pharynx/larynx Overall: hypopharynx benign 02/15/2017 None Full Exam - General 1994 Ears/Nose/Throat oral cavity/pharynx/larynx Overall: no masses 02/15/2017 None Full Exam - General 1994 Respiratory auscultation Overall: breath sounds clear bilaterally 02/15/2017 None Full Exam - General 1994 Respiratory respiratory effort/rhythm Overall: no retractions 02/15/2017 None Full Exam - General 1994 Respiratory respiratory effort/rhythm Overall: normal rate 02/15/2017 None Full Exam - General 1994 Cardiovascular extremities Overall: no clubbing 02/15/2017 None Full Exam - General 1994 Cardiovascular auscultation of heart Overall: regular rate 02/15/2017 None Full Exam - General 1994 Cardiovascular auscultation of heart Overall: normal heart sounds 02/15/2017 None Full Exam - General 1994 Abdomen abdominal exam Overall: no tenderness 02/15/2017 None Full Exam - General 1994 Abdomen abdominal exam Overall: normal bowel sounds 02/15/2017 None Full Exam - General 1994 Musculoskeletal spine, ribs and pelvis Overall: spine benign 02/15/2017 None Full Exam - General 1994 Musculoskeletal spine, ribs and pelvis Overall: sacroiliac joint benign 02/15/2017 None Full Exam - General 1994 Musculoskeletal spine, ribs and pelvis Overall: good posture 02/15/2017 None Full Exam - General 1994 Musculoskeletal head and neck Overall: head atraumatic 02/15/2017 None Full Exam - General 1994 Musculoskeletal head and neck Overall: cervical spine benign 02/15/2017 None Full Exam - General 1994 Neurologic deep tendon reflexes Overall: deep tendon reflexes intact 02/15/2017 None Full Exam - General 1994 Neurologic cranial nerves Overall: crainial nerves 2 - 12 grossly intact 02/15/2017 None Full Exam - General 1994 Psychiatric orientation/consciousness Overall: oriented to person, place and time 02/15/2017 None Full Exam - General 1994 Psychiatric mood and affect Overall: normal mood and affect 02/15/2017 None Full Exam - General 1994 Constitutional general appearance Overall: well developed 01/27/2017 None Full Exam - General 1994 Constitutional general appearance Overall: in no acute distress 01/27/2017 None Full Exam - General 1994 Constitutional general appearance Overall: well nourished 01/27/2017 None Full Exam - General 1994 Eyes conjunctiva /eyelids Overall: conjunctiva clear 01/27/2017 None Full Exam - General 1994 Eyes conjunctiva /eyelids Overall: eyelids normal 01/27/2017 None Full Exam - General 1994 Ears/Nose/Throat lips/teeth/gingiva Overall: benign lips 01/27/2017 None Full Exam - General 1994 Ears/Nose/Throat oral cavity/pharynx/larynx Overall: oral mucosa clear 01/27/2017 None Full Exam - General 1994 Respiratory auscultation Overall: breath sounds clear bilaterally 01/27/2017 None Full Exam - General 1994 Respiratory respiratory effort/rhythm Overall: no retractions 01/27/2017 None Full Exam - General 1994 Respiratory respiratory effort/rhythm Overall: normal rate 01/27/2017 None Full Exam - General 1994 Cardiovascular extremities Overall: no clubbing 01/27/2017 None Full Exam - General 1994 Cardiovascular auscultation of heart Overall: regular rate 01/27/2017 None Full Exam - General 1994 Musculoskeletal head and neck Overall: head atraumatic 01/27/2017 None Full Exam - General 1994 Psychiatric orientation/consciousness Overall: oriented to person, place and time 01/27/2017 None Full Exam - General 1994 Psychiatric mood and affect Overall: normal mood and affect 01/27/2017 None Full Exam - General 1994 Psychiatric appearance Overall: well-groomed, good eye contact 01/27/2017 None Full Exam - General 1994 Constitutional general appearance Development: well developed 01/25/2017 None Full Exam - General 1994 Constitutional general appearance Development: appears stated age 0301/25/2017 None Full Exam - General 1994 Constitutional general appearance Hygiene/Attention to Grooming: good hygiene 01/25/2017 None Full Exam - General 1994 Eyes conjunctiva /eyelids Overall: conjunctiva clear 01/25/2017 None Full Exam - General 1994 Eyes conjunctiva /eyelids Overall: cornea clear 01/25/2017 None Full Exam - General 1994 Eyes conjunctiva /eyelids Overall: eyelids normal 01/25/2017 None Full Exam - General 1994 Eyes pupils and irises Overall: pupils equal, round, reactive to light and accomodation 01/25/2017 None Full Exam - General 1994 Ears/Nose/Throat otoscopic exam Overall: external auditory canals clear 01/25/2017 None Full Exam - General 1994 Ears/Nose/Throat otoscopic exam Overall: tympanic membranes clear 01/25/2017 None Full Exam - General 1994 Ears/Nose/Throat lips/teeth/gingiva Overall: benign lips 01/25/2017 None Full Exam - General 1994 Ears/Nose/Throat lips/teeth/gingiva Overall: normal dentition 01/25/2017 None Full Exam - General 1994 Ears/Nose/Throat oral cavity/pharynx/larynx Overall: oral mucosa clear 01/25/2017 None Full Exam - General 1994 Ears/Nose/Throat oral cavity/pharynx/larynx Overall: oropharyngeal mucosa clear 01/25/2017 None Full Exam - General 1994 Ears/Nose/Throat oral cavity/pharynx/larynx Overall: hypopharynx benign 01/25/2017 None Full Exam - General 1994 Ears/Nose/Throat oral cavity/pharynx/larynx Overall: no masses 01/25/2017 None Full Exam - General 1994 Respiratory auscultation Overall: breath sounds clear bilaterally 01/25/2017 None Full Exam - General 1994 Respiratory respiratory effort/rhythm Overall: no retractions 01/25/2017 None Full Exam - General 1994 Respiratory respiratory effort/rhythm Overall: normal rate 01/25/2017 None Full Exam - General 1994 Cardiovascular extremities Overall: no clubbing 01/25/2017 None Full Exam - General 1994 Cardiovascular auscultation of heart Overall: regular rate 01/25/2017 None Full Exam - General 1994 Cardiovascular auscultation of heart Overall: normal heart sounds 01/25/2017 None Full Exam - General 1994 Abdomen abdominal exam Overall: no tenderness 01/25/2017 None Full Exam - General 1994 Abdomen abdominal exam Overall: normal bowel sounds 01/25/2017 None Full Exam - General 1994 Musculoskeletal spine, ribs and pelvis Overall: spine benign 01/25/2017 None Full Exam - General 1994 Musculoskeletal spine, ribs and pelvis Overall: sacroiliac joint benign 01/25/2017 None Full Exam - General 1994 Musculoskeletal spine, ribs and pelvis Overall: good posture 01/25/2017 None Full Exam - General 1994 Musculoskeletal head and neck Overall: head atraumatic 01/25/2017 None Full Exam - General 1994 Musculoskeletal head and neck Overall: cervical spine benign 01/25/2017 None Full Exam - General 1994 Neurologic deep tendon reflexes Overall: deep tendon reflexes intact 01/25/2017 None Full Exam - General 1994 Neurologic cranial nerves Overall: crainial nerves 2 - 12 grossly intact 01/25/2017 None Full Exam - General 1994 Psychiatric orientation/consciousness Overall: oriented to person, place and time 01/25/2017 None Full Exam - General 1994 Psychiatric mood and affect Overall: normal mood and affect 01/25/2017 None Full Exam - General 1994 Constitutional general appearance Development: well developed 01/11/2017 None Full Exam - General 1994 Constitutional general appearance Development: appears stated age 0301/11/2017 None Full Exam - General 1994 Constitutional general appearance Hygiene/Attention to Grooming: good hygiene 01/11/2017 None Full Exam - General 1994 Eyes conjunctiva /eyelids Overall: conjunctiva clear 01/11/2017 None Full Exam - General 1994 Eyes conjunctiva /eyelids Overall: cornea clear 01/11/2017 None Full Exam - General 1994 Eyes conjunctiva /eyelids Overall: eyelids normal 01/11/2017 None Full Exam - General 1994 Eyes pupils and irises Overall: pupils equal, round, reactive to light and accomodation 01/11/2017 None Full Exam - General 1994 Ears/Nose/Throat otoscopic exam Overall: external auditory canals clear 01/11/2017 None Full Exam - General 1994 Ears/Nose/Throat otoscopic exam Overall: tympanic membranes clear 01/11/2017 None Full Exam - General 1994 Ears/Nose/Throat lips/teeth/gingiva Overall: benign lips 01/11/2017 None Full Exam - General 1994 Ears/Nose/Throat lips/teeth/gingiva Overall: normal dentition 01/11/2017 None Full Exam - General 1994 Ears/Nose/Throat oral cavity/pharynx/larynx Overall: oral mucosa clear 01/11/2017 None Full Exam - General 1994 Ears/Nose/Throat oral cavity/pharynx/larynx Overall: oropharyngeal mucosa clear 01/11/2017 None Full Exam - General 1994 Ears/Nose/Throat oral cavity/pharynx/larynx Overall: hypopharynx benign 01/11/2017 None Full Exam - General 1994 Ears/Nose/Throat oral cavity/pharynx/larynx Overall: no masses 01/11/2017 None Full Exam - General 1994 Respiratory auscultation Overall: breath sounds clear bilaterally 01/11/2017 None Full Exam - General 1994 Respiratory respiratory effort/rhythm Overall: no retractions 01/11/2017 None Full Exam - General 1994 Respiratory respiratory effort/rhythm Overall: normal rate 01/11/2017 None Full Exam - General 1994 Cardiovascular extremities Overall: no clubbing 01/11/2017 None Full Exam - General 1994 Cardiovascular auscultation of heart Overall: regular rate 01/11/2017 None Full Exam - General 1994 Cardiovascular auscultation of heart Overall: normal heart sounds 01/11/2017 None Full Exam - General 1994 Abdomen abdominal exam Overall: no tenderness 01/11/2017 None Full Exam - General 1994 Abdomen abdominal exam Overall: normal bowel sounds 01/11/2017 None Full Exam - General 1994 Musculoskeletal spine, ribs and pelvis Overall: spine benign 01/11/2017 None Full Exam - General 1994 Musculoskeletal spine, ribs and pelvis Overall: sacroiliac joint benign 01/11/2017 None Full Exam - General 1994 Musculoskeletal spine, ribs and pelvis Overall: good posture 01/11/2017 None Full Exam - General 1994 Musculoskeletal head and neck Overall: head atraumatic 01/11/2017 None Full Exam - General 1994 Musculoskeletal head and neck Overall: cervical spine benign 01/11/2017 None Full Exam - General 1994 Neurologic deep tendon reflexes Overall: deep tendon reflexes intact 01/11/2017 None Full Exam - General 1994 Neurologic cranial nerves Overall: crainial nerves 2 - 12 grossly intact 01/11/2017 None Full Exam - General 1994 Psychiatric orientation/consciousness Overall: oriented to person, place and time 01/11/2017 None Full Exam - General 1994 Psychiatric mood and affect Overall: normal mood and affect 01/11/2017 None Full Exam - General 1994 Constitutional general appearance Development: well developed 10/12/2016 None Full Exam - General 1994 Constitutional general appearance Development: appears stated age 1210/12/2016 None Full Exam - General 1994 Constitutional general appearance Hygiene/Attention to Grooming: good hygiene 10/12/2016 None Full Exam - General 1994 Eyes conjunctiva /eyelids Overall: conjunctiva clear 10/12/2016 None Full Exam - General 1994 Eyes conjunctiva /eyelids Overall: cornea clear 10/12/2016 None Full Exam - General 1994 Eyes conjunctiva /eyelids Overall: eyelids normal 10/12/2016 None Full Exam - General 1994 Eyes pupils and irises Overall: pupils equal, round, reactive to light and accomodation 10/12/2016 None Full Exam - General 1994 Ears/Nose/Throat otoscopic exam Overall: external auditory canals clear 10/12/2016 None Full Exam - General 1994 Ears/Nose/Throat otoscopic exam Overall: tympanic membranes clear 10/12/2016 None Full Exam - General 1994 Ears/Nose/Throat lips/teeth/gingiva Overall: benign lips 10/12/2016 None Full Exam - General 1994 Ears/Nose/Throat lips/teeth/gingiva Overall: normal dentition 10/12/2016 None Full Exam - General 1994 Ears/Nose/Throat oral cavity/pharynx/larynx Overall: oral mucosa clear 10/12/2016 None Full Exam - General 1994 Ears/Nose/Throat oral cavity/pharynx/larynx Overall: oropharyngeal mucosa clear 10/12/2016 None Full Exam - General 1994 Ears/Nose/Throat oral cavity/pharynx/larynx Overall: hypopharynx benign 10/12/2016 None Full Exam - General 1994 Ears/Nose/Throat oral cavity/pharynx/larynx Overall: no masses 10/12/2016 None Full Exam - General 1994 Respiratory auscultation Overall: breath sounds clear bilaterally 10/12/2016 None Full Exam - General 1994 Respiratory respiratory effort/rhythm Overall: no retractions 10/12/2016 None Full Exam - General 1994 Respiratory respiratory effort/rhythm Overall: normal rate 10/12/2016 None Full Exam - General 1994 Cardiovascular extremities Overall: no clubbing 10/12/2016 None Full Exam - General 1994 Cardiovascular auscultation of heart Overall: regular rate 10/12/2016 None Full Exam - General 1994 Cardiovascular auscultation of heart Overall: normal heart sounds 10/12/2016 None Full Exam - General 1994 Abdomen abdominal exam Overall: no tenderness 10/12/2016 None Full Exam - General 1994 Abdomen abdominal exam Overall: normal bowel sounds 10/12/2016 None Full Exam - General 1994 Musculoskeletal spine, ribs and pelvis Overall: spine benign 10/12/2016 None Full Exam - General 1994 Musculoskeletal spine, ribs and pelvis Overall: sacroiliac joint benign 10/12/2016 None Full Exam - General 1994 Musculoskeletal spine, ribs and pelvis Overall: good posture 10/12/2016 None Full Exam - General 1994 Musculoskeletal head and neck Overall: head atraumatic 10/12/2016 None Full Exam - General 1994 Musculoskeletal head and neck Overall: cervical spine benign 10/12/2016 None Full Exam - General 1994 Neurologic deep tendon reflexes Overall: deep tendon reflexes intact 10/12/2016 None Full Exam - General 1994 Neurologic cranial nerves Overall: crainial nerves 2 - 12 grossly intact 10/12/2016 None Full Exam - General 1994 Psychiatric orientation/consciousness Overall: oriented to person, place and time 10/12/2016 None Full Exam - General 1994 Psychiatric mood and affect Overall: normal mood and affect 10/12/2016 None Full Exam - General 1994 Constitutional general appearance Development: well developed 08/04/2016 None Full Exam - General 1994 Constitutional general appearance Development: appears stated age 0908/04/2016 None Full Exam - General 1994 Constitutional general appearance Hygiene/Attention to Grooming: good hygiene 08/04/2016 None Full Exam - General 1994 Eyes conjunctiva /eyelids Overall: conjunctiva clear 08/04/2016 None Full Exam - General 1994 Eyes conjunctiva /eyelids Overall: cornea clear 08/04/2016 None Full Exam - General 1994 Eyes conjunctiva /eyelids Overall: eyelids normal 08/04/2016 None Full Exam - General 1994 Eyes pupils and irises Overall: pupils equal, round, reactive to light and accomodation 08/04/2016 None Full Exam - General 1994 Ears/Nose/Throat otoscopic exam Overall: external auditory canals clear 08/04/2016 None Full Exam - General 1994 Ears/Nose/Throat otoscopic exam Overall: tympanic membranes clear 08/04/2016 None Full Exam - General 1994 Ears/Nose/Throat lips/teeth/gingiva Overall: benign lips 08/04/2016 None Full Exam - General 1994 Ears/Nose/Throat lips/teeth/gingiva Overall: normal dentition 08/04/2016 None Full Exam - General 1994 Ears/Nose/Throat oral cavity/pharynx/larynx Overall: oral mucosa clear 08/04/2016 None Full Exam - General 1994 Ears/Nose/Throat oral cavity/pharynx/larynx Overall: oropharyngeal mucosa clear 08/04/2016 None Full Exam - General 1994 Ears/Nose/Throat oral cavity/pharynx/larynx Overall: hypopharynx benign 08/04/2016 None Full Exam - General 1994 Ears/Nose/Throat oral cavity/pharynx/larynx Overall: no masses 08/04/2016 None Full Exam - General 1994 Respiratory auscultation Overall: breath sounds clear bilaterally 08/04/2016 None Full Exam - General 1994 Respiratory respiratory effort/rhythm Overall: no retractions 08/04/2016 None Full Exam - General 1994 Respiratory respiratory effort/rhythm Overall: normal rate 08/04/2016 None Full Exam - General 1994 Cardiovascular extremities Overall: no clubbing 08/04/2016 None Full Exam - General 1994 Cardiovascular auscultation of heart Overall: regular rate 08/04/2016 None Full Exam - General 1994 Cardiovascular auscultation of heart Overall: normal heart sounds 08/04/2016 None Full Exam - General 1994 Abdomen abdominal exam Overall: no tenderness 08/04/2016 None Full Exam - General 1994 Abdomen abdominal exam Overall: normal bowel sounds 08/04/2016 None Full Exam - General 1994 Lymphatic neck nodes Overall: anterior cervical chain benign 08/04/2016 None Full Exam - General 1994 Lymphatic neck nodes Overall: posterior cervical chain benign 08/04/2016 None Full Exam - General 1994 Musculoskeletal spine, ribs and pelvis Overall: spine benign 08/04/2016 None Full Exam - General 1994 Musculoskeletal spine, ribs and pelvis Overall: sacroiliac joint benign 08/04/2016 None Full Exam - General 1994 Musculoskeletal spine, ribs and pelvis Overall: good posture 08/04/2016 None Full Exam - General 1994 Musculoskeletal head and neck Overall: head atraumatic 08/04/2016 None Full Exam - General 1994 Musculoskeletal head and neck Overall: cervical spine benign 08/04/2016 None Full Exam - General 1994 Integument inspection of skin Overall: few scattered moles, no gross abnormalities 08/04/2016 None Full Exam - General 1994 Neurologic deep tendon reflexes Overall: deep tendon reflexes intact 08/04/2016 None Full Exam - General 1994 Neurologic cranial nerves Overall: crainial nerves 2 - 12 grossly intact 08/04/2016 None Full Exam - General 1994 Psychiatric orientation/consciousness Overall: oriented to person, place and time 08/04/2016 None Full Exam - General 1994 Psychiatric mood and affect Overall: normal mood and affect 08/04/2016 None Full Exam - General 1994 Abdomen hernia exam Scrotal hernia present: non-tender 08/04/2016 None Full Exam - General 1994 Constitutional general appearance Development: well developed 06/07/2016 None Full Exam - General 1994 Constitutional general appearance Development: appears stated age 0806/07/2016 None Full Exam - General 1994 Constitutional general appearance Hygiene/Attention to Grooming: good hygiene 06/07/2016 None Full Exam - General 1994 Eyes conjunctiva /eyelids Overall: conjunctiva clear 06/07/2016 None Full Exam - General 1994 Eyes conjunctiva /eyelids Overall: cornea clear 06/07/2016 None Full Exam - General 1994 Eyes conjunctiva /eyelids Overall: eyelids normal 06/07/2016 None Full Exam - General 1994 Eyes pupils and irises Overall: pupils equal, round, reactive to light and accomodation 06/07/2016 None Full Exam - General 1994 Ears/Nose/Throat otoscopic exam Overall: external auditory canals clear 06/07/2016 None Full Exam - General 1994 Ears/Nose/Throat otoscopic exam Overall: tympanic membranes clear 06/07/2016 None Full Exam - General 1994 Ears/Nose/Throat lips/teeth/gingiva Overall: benign lips 06/07/2016 None Full Exam - General 1994 Ears/Nose/Throat lips/teeth/gingiva Overall: normal dentition 06/07/2016 None Full Exam - General 1994 Ears/Nose/Throat oral cavity/pharynx/larynx Overall: oral mucosa clear 06/07/2016 None Full Exam - General 1994 Ears/Nose/Throat oral cavity/pharynx/larynx Overall: oropharyngeal mucosa clear 06/07/2016 None Full Exam - General 1994 Ears/Nose/Throat oral cavity/pharynx/larynx Overall: hypopharynx benign 06/07/2016 None Full Exam - General 1994 Ears/Nose/Throat oral cavity/pharynx/larynx Overall: no masses 06/07/2016 None Full Exam - General 1994 Respiratory auscultation Overall: breath sounds clear bilaterally 06/07/2016 None Full Exam - General 1994 Respiratory respiratory effort/rhythm Overall: no retractions 06/07/2016 None Full Exam - General 1994 Respiratory respiratory effort/rhythm Overall: normal rate 06/07/2016 None Full Exam - General 1994 Cardiovascular extremities Overall: no clubbing 06/07/2016 None Full Exam - General 1994 Cardiovascular auscultation of heart Overall: regular rate 06/07/2016 None Full Exam - General 1994 Cardiovascular auscultation of heart Overall: normal heart sounds 06/07/2016 None Full Exam - General 1994 Abdomen abdominal exam Overall: no tenderness 06/07/2016 None Full Exam - General 1994 Abdomen abdominal exam Overall: normal bowel sounds 06/07/2016 None Full Exam - General 1994 Lymphatic neck nodes Overall: anterior cervical chain benign 06/07/2016 None Full Exam - General 1994 Lymphatic neck nodes Overall: posterior cervical chain benign 06/07/2016 None Full Exam - General 1994 Musculoskeletal spine, ribs and pelvis Overall: spine benign 06/07/2016 None Full Exam - General 1994 Musculoskeletal spine, ribs and pelvis Overall: sacroiliac joint benign 06/07/2016 None Full Exam - General 1994 Musculoskeletal spine, ribs and pelvis Overall: good posture 06/07/2016 None Full Exam - General 1994 Musculoskeletal head and neck Overall: head atraumatic 06/07/2016 None Full Exam - General 1994 Musculoskeletal head and neck Overall: cervical spine benign 06/07/2016 None Full Exam - General 1994 Integument inspection of skin Overall: few scattered moles, no gross abnormalities 06/07/2016 None Full Exam - General 1994 Neurologic deep tendon reflexes Overall: deep tendon reflexes intact 06/07/2016 None Full Exam - General 1994 Neurologic cranial nerves Overall: crainial nerves 2 - 12 grossly intact 06/07/2016 None Full Exam - General 1994 Psychiatric orientation/consciousness Overall: oriented to person, place and time 06/07/2016 None Full Exam - General 1994 Psychiatric mood and affect Overall: normal mood and affect 06/07/2016 None Full Exam - General 1994 Constitutional general appearance Development: well developed 03/30/2016 None Full Exam - General 1994 Constitutional general appearance Development: appears stated age 0503/30/2016 None Full Exam - General 1994 Constitutional general appearance Hygiene/Attention to Grooming: good hygiene 03/30/2016 None Full Exam - General 1994 Eyes conjunctiva /eyelids Overall: conjunctiva clear 03/30/2016 None Full Exam - General 1994 Eyes conjunctiva /eyelids Overall: cornea clear 03/30/2016 None Full Exam - General 1994 Eyes conjunctiva /eyelids Overall: eyelids normal 03/30/2016 None Full Exam - General 1994 Eyes pupils and irises Overall: pupils equal, round, reactive to light and accomodation 03/30/2016 None Full Exam - General 1994 Ears/Nose/Throat otoscopic exam Overall: external auditory canals clear 03/30/2016 None Full Exam - General 1994 Ears/Nose/Throat otoscopic exam Overall: tympanic membranes clear 03/30/2016 None Full Exam - General 1994 Ears/Nose/Throat lips/teeth/gingiva Overall: benign lips 03/30/2016 None Full Exam - General 1994 Ears/Nose/Throat lips/teeth/gingiva Overall: normal dentition 03/30/2016 None Full Exam - General 1994 Ears/Nose/Throat oral cavity/pharynx/larynx Overall: oral mucosa clear 03/30/2016 None Full Exam - General 1994 Ears/Nose/Throat oral cavity/pharynx/larynx Overall: oropharyngeal mucosa clear 03/30/2016 None Full Exam - General 1994 Ears/Nose/Throat oral cavity/pharynx/larynx Overall: hypopharynx benign 03/30/2016 None Full Exam - General 1994 Ears/Nose/Throat oral cavity/pharynx/larynx Overall: no masses 03/30/2016 None Full Exam - General 1994 Respiratory auscultation Overall: breath sounds clear bilaterally 03/30/2016 None Full Exam - General 1994 Respiratory respiratory effort/rhythm Overall: no retractions 03/30/2016 None Full Exam - General 1994 Respiratory respiratory effort/rhythm Overall: normal rate 03/30/2016 None Full Exam - General 1994 Cardiovascular extremities Overall: no clubbing 03/30/2016 None Full Exam - General 1994 Cardiovascular auscultation of heart Overall: regular rate 03/30/2016 None Full Exam - General 1994 Cardiovascular auscultation of heart Overall: normal heart sounds 03/30/2016 None Full Exam - General 1994 Abdomen abdominal exam Overall: no tenderness 03/30/2016 None Full Exam - General 1994 Abdomen abdominal exam Overall: normal bowel sounds 03/30/2016 None Full Exam - General 1994 Lymphatic neck nodes Overall: anterior cervical chain benign 03/30/2016 None Full Exam - General 1994 Lymphatic neck nodes Overall: posterior cervical chain benign 03/30/2016 None Full Exam - General 1994 Musculoskeletal spine, ribs and pelvis Overall: spine benign 03/30/2016 None Full Exam - General 1994 Musculoskeletal spine, ribs and pelvis Overall: sacroiliac joint benign 03/30/2016 None Full Exam - General 1994 Musculoskeletal spine, ribs and pelvis Overall: good posture 03/30/2016 None Full Exam - General 1994 Musculoskeletal head and neck Overall: head atraumatic 03/30/2016 None Full Exam - General 1994 Musculoskeletal head and neck Overall: cervical spine benign 03/30/2016 None Full Exam - General 1994 Integument inspection of skin Overall: few scattered moles, no gross abnormalities 03/30/2016 None Full Exam - General 1994 Neurologic deep tendon reflexes Overall: deep tendon reflexes intact 03/30/2016 None Full Exam - General 1994 Neurologic cranial nerves Overall: crainial nerves 2 - 12 grossly intact 03/30/2016 None Full Exam - General 1994 Psychiatric orientation/consciousness Overall: oriented to person, place and time 03/30/2016 None Full Exam - General 1994 Psychiatric mood and affect Overall: normal mood and affect 03/30/2016 None Full Exam - General 1994 Constitutional general appearance Development: well developed 09/30/2015 None Full Exam - General 1994 Constitutional general appearance Development: appears stated age 1109/30/2015 None Full Exam - General 1994 Constitutional general appearance Hygiene/Attention to Grooming: good hygiene 09/30/2015 None Full Exam - General 1994 Eyes conjunctiva /eyelids Overall: conjunctiva clear 09/30/2015 None Full Exam - General 1994 Eyes conjunctiva /eyelids Overall: cornea clear 09/30/2015 None Full Exam - General 1994 Eyes conjunctiva /eyelids Overall: eyelids normal 09/30/2015 None Full Exam - General 1994 Eyes pupils and irises Overall: pupils equal, round, reactive to light and accomodation 09/30/2015 None Full Exam - General 1994 Ears/Nose/Throat otoscopic exam Overall: external auditory canals clear 09/30/2015 None Full Exam - General 1994 Ears/Nose/Throat otoscopic exam Overall: tympanic membranes clear 09/30/2015 None Full Exam - General 1994 Ears/Nose/Throat lips/teeth/gingiva Overall: benign lips 09/30/2015 None Full Exam - General 1994 Ears/Nose/Throat lips/teeth/gingiva Overall: normal dentition 09/30/2015 None Full Exam - General 1994 Ears/Nose/Throat oral cavity/pharynx/larynx Overall: oral mucosa clear 09/30/2015 None Full Exam - General 1994 Ears/Nose/Throat oral cavity/pharynx/larynx Overall: oropharyngeal mucosa clear 09/30/2015 None Full Exam - General 1994 Ears/Nose/Throat oral cavity/pharynx/larynx Overall: hypopharynx benign 09/30/2015 None Full Exam - General 1994 Ears/Nose/Throat oral cavity/pharynx/larynx Overall: no masses 09/30/2015 None Full Exam - General 1994 Respiratory auscultation Overall: breath sounds clear bilaterally 09/30/2015 None Full Exam - General 1994 Respiratory respiratory effort/rhythm Overall: no retractions 09/30/2015 None Full Exam - General 1994 Respiratory respiratory effort/rhythm Overall: normal rate 09/30/2015 None Full Exam - General 1994 Cardiovascular extremities Overall: no clubbing 09/30/2015 None Full Exam - General 1994 Cardiovascular auscultation of heart Overall: regular rate 09/30/2015 None Full Exam - General 1994 Cardiovascular auscultation of heart Overall: normal heart sounds 09/30/2015 None Full Exam - General 1994 Abdomen abdominal exam Overall: no tenderness 09/30/2015 None Full Exam - General 1994 Abdomen abdominal exam Overall: normal bowel sounds 09/30/2015 None Full Exam - General 1994 Lymphatic neck nodes Overall: anterior cervical chain benign 09/30/2015 None Full Exam - General 1994 Lymphatic neck nodes Overall: posterior cervical chain benign 09/30/2015 None Full Exam - General 1994 Musculoskeletal spine, ribs and pelvis Overall: spine benign 09/30/2015 None Full Exam - General 1994 Musculoskeletal spine, ribs and pelvis Overall: sacroiliac joint benign 09/30/2015 None Full Exam - General 1994 Musculoskeletal spine, ribs and pelvis Overall: good posture 09/30/2015 None Full Exam - General 1994 Musculoskeletal head and neck Overall: head atraumatic 09/30/2015 None Full Exam - General 1994 Musculoskeletal head and neck Overall: cervical spine benign 09/30/2015 None Full Exam - General 1994 Integument inspection of skin Overall: few scattered moles, no gross abnormalities 09/30/2015 None Full Exam - General 1994 Neurologic deep tendon reflexes Overall: deep tendon reflexes intact 09/30/2015 None Full Exam - General 1994 Neurologic cranial nerves Overall: crainial nerves 2 - 12 grossly intact 09/30/2015 None Full Exam - General 1994 Psychiatric orientation/consciousness Overall: oriented to person, place and time 09/30/2015 None Full Exam - General 1994 Psychiatric mood and affect Overall: normal mood and affect 09/30/2015 None Full Exam - General 1994 Constitutional general appearance Development: well developed 07/01/2015 None Full Exam - General 1994 Constitutional general appearance Development: appears stated age 0807/01/2015 None Full Exam - General 1994 Constitutional general appearance Hygiene/Attention to Grooming: good hygiene 07/01/2015 None Full Exam - General 1994 Eyes conjunctiva /eyelids Overall: conjunctiva clear 07/01/2015 None Full Exam - General 1994 Eyes conjunctiva /eyelids Overall: cornea clear 07/01/2015 None Full Exam - General 1994 Eyes conjunctiva /eyelids Overall: eyelids normal 07/01/2015 None Full Exam - General 1994 Eyes pupils and irises Overall: pupils equal, round, reactive to light and accomodation 07/01/2015 None Full Exam - General 1994 Ears/Nose/Throat otoscopic exam Overall: external auditory canals clear 07/01/2015 None Full Exam - General 1994 Ears/Nose/Throat otoscopic exam Overall: tympanic membranes clear 07/01/2015 None Full Exam - General 1994 Ears/Nose/Throat lips/teeth/gingiva Overall: benign lips 07/01/2015 None Full Exam - General 1994 Ears/Nose/Throat lips/teeth/gingiva Overall: normal dentition 07/01/2015 None Full Exam - General 1994 Ears/Nose/Throat oral cavity/pharynx/larynx Overall: oral mucosa clear 07/01/2015 None Full Exam - General 1994 Ears/Nose/Throat oral cavity/pharynx/larynx Overall: oropharyngeal mucosa clear 07/01/2015 None Full Exam - General 1994 Ears/Nose/Throat oral cavity/pharynx/larynx Overall: hypopharynx benign 07/01/2015 None Full Exam - General 1994 Ears/Nose/Throat oral cavity/pharynx/larynx Overall: no masses 07/01/2015 None Full Exam - General 1994 Respiratory auscultation Overall: breath sounds clear bilaterally 07/01/2015 None Full Exam - General 1994 Respiratory respiratory effort/rhythm Overall: no retractions 07/01/2015 None Full Exam - General 1994 Respiratory respiratory effort/rhythm Overall: normal rate 07/01/2015 None Full Exam - General 1994 Cardiovascular extremities Overall: no clubbing 07/01/2015 None Full Exam - General 1994 Cardiovascular auscultation of heart Overall: regular rate 07/01/2015 None Full Exam - General 1994 Cardiovascular auscultation of heart Overall: normal heart sounds 07/01/2015 None Full Exam - General 1994 Abdomen abdominal exam Overall: no tenderness 07/01/2015 None Full Exam - General 1994 Abdomen abdominal exam Overall: normal bowel sounds 07/01/2015 None Full Exam - General 1994 Lymphatic neck nodes Overall: anterior cervical chain benign 07/01/2015 None Full Exam - General 1994 Lymphatic neck nodes Overall: posterior cervical chain benign 07/01/2015 None Full Exam - General 1994 Musculoskeletal spine, ribs and pelvis Overall: spine benign 07/01/2015 None Full Exam - General 1994 Musculoskeletal spine, ribs and pelvis Overall: sacroiliac joint benign 07/01/2015 None Full Exam - General 1994 Musculoskeletal spine, ribs and pelvis Overall: good posture 07/01/2015 None Full Exam - General 1994 Musculoskeletal head and neck Overall: head atraumatic 07/01/2015 None Full Exam - General 1994 Musculoskeletal head and neck Overall: cervical spine benign 07/01/2015 None Full Exam - General 1994 Integument inspection of skin Overall: few scattered moles, no gross abnormalities 07/01/2015 None Full Exam - General 1994 Neurologic deep tendon reflexes Overall: deep tendon reflexes intact 07/01/2015 None Full Exam - General 1994 Neurologic cranial nerves Overall: crainial nerves 2 - 12 grossly intact 07/01/2015 None Full Exam - General 1994 Psychiatric orientation/consciousness Overall: oriented to person, place and time 07/01/2015 None Full Exam - General 1994 Psychiatric mood and affect Overall: normal mood and affect 07/01/2015 None Full Exam - General 1994 Constitutional general appearance Development: well developed 05/27/2015 None Full Exam - General 1994 Constitutional general appearance Development: appears stated age 0705/27/2015 None Full Exam - General 1994 Constitutional general appearance Hygiene/Attention to Grooming: good hygiene 05/27/2015 None Full Exam - General 1994 Eyes conjunctiva /eyelids Overall: conjunctiva clear 05/27/2015 None Full Exam - General 1994 Eyes conjunctiva /eyelids Overall: cornea clear 05/27/2015 None Full Exam - General 1994 Eyes conjunctiva /eyelids Overall: eyelids normal 05/27/2015 None Full Exam - General 1994 Eyes pupils and irises Overall: pupils equal, round, reactive to light and accomodation 05/27/2015 None Full Exam - General 1994 Ears/Nose/Throat otoscopic exam Overall: external auditory canals clear 05/27/2015 None Full Exam - General 1994 Ears/Nose/Throat otoscopic exam Overall: tympanic membranes clear 05/27/2015 None Full Exam - General 1994 Ears/Nose/Throat lips/teeth/gingiva Overall: benign lips 05/27/2015 None Full Exam - General 1994 Ears/Nose/Throat lips/teeth/gingiva Overall: normal dentition 05/27/2015 None Full Exam - General 1994 Ears/Nose/Throat oral cavity/pharynx/larynx Overall: oral mucosa clear 05/27/2015 None Full Exam - General 1994 Ears/Nose/Throat oral cavity/pharynx/larynx Overall: oropharyngeal mucosa clear 05/27/2015 None Full Exam - General 1994 Ears/Nose/Throat oral cavity/pharynx/larynx Overall: hypopharynx benign 05/27/2015 None Full Exam - General 1994 Ears/Nose/Throat oral cavity/pharynx/larynx Overall: no masses 05/27/2015 None Full Exam - General 1994 Respiratory auscultation Overall: breath sounds clear bilaterally 05/27/2015 None Full Exam - General 1994 Respiratory respiratory effort/rhythm Overall: no retractions 05/27/2015 None Full Exam - General 1994 Respiratory respiratory effort/rhythm Overall: normal rate 05/27/2015 None Full Exam - General 1994 Cardiovascular extremities Overall: no clubbing 05/27/2015 None Full Exam - General 1994 Cardiovascular auscultation of heart Overall: regular rate 05/27/2015 None Full Exam - General 1994 Cardiovascular auscultation of heart Overall: normal heart sounds 05/27/2015 None Full Exam - General 1994 Abdomen abdominal exam Overall: no tenderness 05/27/2015 None Full Exam - General 1994 Abdomen abdominal exam Overall: normal bowel sounds 05/27/2015 None Full Exam - General 1994 Lymphatic neck nodes Overall: anterior cervical chain benign 05/27/2015 None Full Exam - General 1994 Lymphatic neck nodes Overall: posterior cervical chain benign 05/27/2015 None Full Exam - General 1994 Musculoskeletal spine, ribs and pelvis Overall: spine benign 05/27/2015 None Full Exam - General 1994 Musculoskeletal spine, ribs and pelvis Overall: sacroiliac joint benign 05/27/2015 None Full Exam - General 1994 Musculoskeletal spine, ribs and pelvis Overall: good posture 05/27/2015 None Full Exam - General 1994 Musculoskeletal head and neck Overall: head atraumatic 05/27/2015 None Full Exam - General 1994 Musculoskeletal head and neck Overall: cervical spine benign 05/27/2015 None Full Exam - General 1994 Integument inspection of skin Overall: few scattered moles, no gross abnormalities 05/27/2015 None Full Exam - General 1994 Neurologic deep tendon reflexes Overall: deep tendon reflexes intact 05/27/2015 None Full Exam - General 1994 Neurologic cranial nerves Overall: crainial nerves 2 - 12 grossly intact 05/27/2015 None Full Exam - General 1994 Psychiatric orientation/consciousness Overall: oriented to person, place and time 05/27/2015 None Full Exam - General 1994 Psychiatric mood and affect Overall: normal mood and affect 05/27/2015 None Procedures Procedure Codes Date PPPS, SUBSEQ VISIT CPT -4: G0439 02/02/2018 PPPS, SUBSEQ VISIT CPT -4: G0439 01/27/2017 URINALYSIS NONAUTO W/O SCOPE CPT-4: 70427 08/04/2016 Vital Signs Date Vital 02/02/2018 Blood Pressure 1: 132/64 Code : 8480-6 BMI: 27.9 Code : 46380-3 Heart Rate 1 : 60 bpm Height: 6' SpO2: 99% Waist Measure (cm): 102 cm Weight: 206 lbs 01/17/2018 Blood Pressure 1: 130/74 Code : 8480-6 BMI: 27.9 Code : 96643-5 Heart Rate 1 : 77 bpm Height: 6' SpO2: 95% Weight: 206 lbs 09/20/2017 Blood Pressure 1: 132/86 Code : 8480-6 BMI: 27.7 Code : 11482-0 Heart Rate 1 : 93 bpm Height: 6' SpO2: 99% Weight: 204 lbs 05/17/2017 Blood Pressure 1: 132/66 Code : 8480-6 BMI: 27.3 Code : 05523-4 Heart Rate 1 : 83 bpm Height: 6' SpO2: 96% Weight: 201 lbs 03/15/2017 Blood Pressure 1: 164/82 Code : 8480-6 BMI: 28.6 Code : 98775-8 Heart Rate 1 : 100 bpm Height: 6' SpO2: 96% Weight: 211 lbs 02/15/2017 Blood Pressure 1: 166/90 Code : 8480-6 BMI: 28.5 Code : 03130-5 Heart Rate 1 : 103 bpm Height: 6' SpO2: 95% Weight: 210 lbs 01/27/2017 Blood Pressure 1: 142/76 Code : 8480-6 BMI: 29.6 Code : 64125-9 Heart Rate 1 : 74 bpm Height: 6' SpO2: 97% Waist Measure (cm): 102 cm Weight: 218 lbs 01/25/2017 Blood Pressure 1: 144/78 Code : 8480-6 BMI: 29.6 Code : 25571-3 Heart Rate 1 : 74 bpm Height: 6' SpO2: 96% Weight: 218 lbs 01/11/2017 Blood Pressure 1: 192/90 Code : 8480-6 Blood Pressure 1: 200/92 Code: 8480-6 Blood Pressure 1: 178/80 Code: 8480-6 BMI: 28.8 Code: 06446-0 Heart Rate 1: 68 bpm Height: 6' SpO2: 99% Weight: 212 lbs 10/12/2016 Blood Pressure 1: 144/70 Code : 8480-6 BMI: 28.3 Code : 21445-4 Heart Rate 1 : 65 bpm Height: 6' SpO2: 98% Weight: 209 lbs 08/04/2016 Blood Pressure 1: 148/68 Code : 8480-6 BMI: 27.8 Code : 66404-3 Heart Rate 1 : 64 bpm Height: 6' SpO2: 98% Weight: 205 lbs 06/07/2016 Blood Pressure 1: 138/60 Code : 8480-6 BMI: 28.0 Code : 11789-8 Heart Rate 1 : 67 bpm Height: 6' SpO2: 98% Weight: 206 lbs 8 oz 03/30/2016 Blood Pressure 1: 138/62 Code : 8480-6 BMI: 28.5 Code : 55468-5 Heart Rate 1 : 61 bpm Height: 6' SpO2: 94% Weight: 210 lbs 09/30/2015 Blood Pressure 1: 140/76 Code : 8480-6 BMI: 29.0 Code : 09718-0 Heart Rate 1 : 58 bpm Height: 6' SpO2: 98% Weight: 214 lbs 07/01/2015 Blood Pressure 1: 140/70 Code : 8480-6 BMI: 28.8 Code : 80569-2 Heart Rate 1 : 58 bpm Height: 6' SpO2: 98% Weight: 212 lbs 05/27/2015 Blood Pressure 1: 160/76 Code : 8480-6 BMI: 28.9 Code : 27108-3 Heart Rate 1 : 59 bpm Height: 6' SpO2: 98% Weight: 213 lbs Functional Status No Functional Status data History of Present Illness Symptom Name Status Result Effective Date Notes Annual Medicare Wellness Exam Alcohol Use does not drink any alcohol 02/02/2018 None Annual Medicare Wellness Exam Aspirin Use yes 02/02/2018 None Annual Medicare Wellness Exam Blood Glucose (self reported) don't know 02/02/2018 None Annual Medicare Wellness Exam Blood Pressure (self reported ) borderline (120/80 - 139/89) 02/02/2018 None Annual Medicare Wellness Exam Cholesterol (self reported) don't know 02/02/2018 None Annual Medicare Wellness Exam Depression (last 6 months) almost never 02/02/2018 None Annual Medicare Wellness Exam Depression or Hopelessness almost never 02/02/2018 None Annual Medicare Wellness Exam Describe Your Health good 02/02/2018 None Annual Medicare Wellness Exam Exercise Habits does not exercise 02/02/2018 None Annual Medicare Wellness Exam Handling Stress usually malu effectively 02/02/2018 None Annual Medicare Wellness Exam Hemaglobin A-1C (self reported ) don't know 02/02/2018 None Annual Medicare Wellness Exam Hours of Sleep 10 02/02/2018 None Annual Medicare Wellness Exam Interaction with Friends no 02/02/2018 None Annual Medicare Wellness Exam Interests & Pleasure most of the time 02/02/2018 None Annual Medicare Wellness Exam Life Satisfaction very satisfied 02/02/2018 None Annual Medicare Wellness Exam Motor Vehicle Safety always fastens seat belt: y 02/02/2018 None Annual Medicare Wellness Exam Motor Vehicle Safety drives after drinking: n 02/02/2018 None Annual Medicare Wellness Exam Motor Vehicle Safety rides with someone who has been drinking: n 2017 None Annual Medicare Wellness Exam Nutrition servings of fried food / high fat foods per day: 0 2017 None Annual Medicare Wellness Exam Nutrition servings of high fiber / whole grain per day: 2 02/02/2018 None Annual Medicare Wellness Exam Nutrition servings of vegetables / fruit per day: 2 02/02/2018 None Annual Medicare Wellness Exam Smoking and Tobacco Use non smoker 02/02/2018 None Annual Medicare Wellness Exam Social & Emotional Support always 02/02/2018 None Annual Medicare Wellness Exam Stress some of the time 02/02/2018 None Annual Medicare Wellness Exam Sun Exposure protects skin when outdoors: n 02/02/2018 None diabetes mellitus Quality non-insulin dependent 01/17/2018 None diabetes mellitus Quality stable 01/17/2018 None diabetes mellitus Alleviating Factors diet only 01/17/2018 None diabetes mellitus Exacerbating Factors diet 01/17/2018 None diabetes mellitus Pertinent Findings Denies nausea 01/17/2018 None hypertension Quality primary hypertension 01/17/2018 None hypertension Onset and Resolution ongoing 01/17/2018 None hypertension Onset of Symptom during adulthood 01/17/2018 None hypertension Blood Pressure Values pt checking blood pressure - see scanned document 01/17/2018 None hypertension Alleviating Factors medication 01/17/2018 None hypertension Pertinent Findings Denies dizziness 01/17/2018 None hypertension Pertinent Findings Denies dyspnea 01/17/2018 None hypertension Pertinent Findings Denies edema 01/17/2018 None cough Location in the throat 01/17/2018 None cough Quality acute None cough Onset and Resolution sudden in onset 01/17/2018 None cough Onset of Symptom 1 weeks ago 01/17/2018 None cough Limitation on Activities does not limit activities 01/17/2018 None cough Triggers no known associated factors 01/17/2018 None cough Pertinent Findings Denies chest discomfort 01/17/2018 None cough Pertinent Findings Denies chills 01/17/2018 None cough Pertinent Findings Denies dyspnea 01/17/2018 None cough Pertinent Findings Denies fever 01/17/2018 None cough Pertinent Findings Denies nasal congestion 01/17/2018 None cough Pertinent Findings post nasal drip 01/17/2018 None cough Pertinent Findings sputum production 01/17/2018 None diabetes mellitus Quality non-insulin dependent 09/20/2017 None diabetes mellitus Exacerbating Factors diet 09/20/2017 None diabetes mellitus Pertinent Findings Denies nausea 09/20/2017 None hypertension Onset and Resolution ongoing 09/20/2017 None hypertension Onset of Symptom during adulthood 09/20/2017 None hypertension Alleviating Factors medication 09/20/2017 None hypertension Pertinent Findings Denies dizziness 09/20/2017 None hypertension Pertinent Findings Denies dyspnea 09/20/2017 None hypertension Pertinent Findings Denies edema 09/20/2017 None hypertension Quality primary hypertension 09/20/2017 None pruritus Location-Major on the upper body 09/20/2017 None pruritus Location-Major on the neck 09/20/2017 None pruritus Location-Major on the chest 09/20/2017 None pruritus Location-Major on the back 09/20/2017 None pruritus Location-Major on the abdomen 09/20/2017 None pruritus Location-Major on the arms 09/20/2017 None pruritus Onset and Resolution ongoing 09/20/2017 None pruritus Onset of Symptom 3-4 months ago 09/20/2017 None pruritus Triggers no known triggers 09/20/2017 None pruritus Prior Treatments unresponsive to treatment 09/20/2017 None hypertension Blood Pressure Values pt checking blood pressure - see scanned document 09/20/2017 None diabetes mellitus Test results Pt checking blood glucose at home, see scanned readings 2016 None diabetes mellitus Glucose monitoring fasting 09/20/2017 None diabetes mellitus Alleviating Factors diet only 09/20/2017 None diabetes mellitus Quality stable 09/20/2017 None diabetes mellitus Test results HgbA1c level 5.6 09/20/2017 None diabetes mellitus Quality non-insulin dependent 05/17/2017 None diabetes mellitus Alleviating Factors medication 05/17/2017 None diabetes mellitus Exacerbating Factors diet 05/17/2017 None diabetes mellitus Pertinent Findings Denies nausea 05/17/2017 None hypertension Onset and Resolution ongoing 05/17/2017 None hypertension Onset of Symptom during adulthood 05/17/2017 None hypertension Blood Pressure Values patient checking blood pressure at home - did not bring in readings 05/17/2017 None hypertension Alleviating Factors medication 05/17/2017 None hypertension Pertinent Findings decreased energy 05/17/2017 None hypertension Pertinent Findings dizziness 05/17/2017 occasionally if he stands up too quickly hypertension Pertinent Findings dyspnea 05/17/2017 None hypertension Pertinent Findings Denies edema 05/17/2017 None hypertension Pertinent Findings nausea 05/17/2017 None hypertension Pertinent Findings vomiting 05/17/2017 None rash Location-Major on the upper body 05/17/2017 None rash Location-Major on the arms 05/17/2017 None rash Location-Extremities on both elbows 05/17/2017 None rash Quality acute 09/2017 None rash Pertinent Findings itching 05/17/2017 None diabetes mellitus Quality non-insulin dependent 03/15/2017 None diabetes mellitus Alleviating Factors medication 03/15/2017 None diabetes mellitus Exacerbating Factors diet 03/15/2017 None diabetes mellitus Pertinent Findings Denies nausea 03/15/2017 None hypertension Onset and Resolution ongoing 03/15/2017 None hypertension Onset of Symptom during adulthood 03/15/2017 None hypertension Blood Pressure Values patient checking blood pressure at home - did not bring in readings 03/15/2017 None hypertension Alleviating Factors medication 03/15/2017 None hypertension Pertinent Findings decreased energy 03/15/2017 None hypertension Pertinent Findings dizziness 03/15/2017 occasionally if he stands up too quickly hypertension Pertinent Findings dyspnea 03/15/2017 None hypertension Pertinent Findings Denies edema 03/15/2017 None hypertension Pertinent Findings nausea 03/15/2017 None hypertension Pertinent Findings vomiting 03/15/2017 None diarrhea Quality intermittent 03/15/2017 None diarrhea Quality loose 03/15/2017 None diarrhea Onset and Resolution ongoing 03/15/2017 None diarrhea Pertinent Findings abdominal distension 03/15/2017 None diarrhea Pertinent Findings cough 03/15/2017 None diarrhea Pertinent Findings Denies cramping 03/15/2017 None diarrhea Pertinent Findings Denies flatulence 03/15/2017 None diarrhea Pertinent Findings Denies heartburn 03/15/2017 None diarrhea Pertinent Findings Denies nausea 03/15/2017 None diabetes mellitus Quality non-insulin dependent 02/15/2017 None diabetes mellitus Alleviating Factors medication 02/15/2017 None diabetes mellitus Exacerbating Factors diet 02/15/2017 None diabetes mellitus Pertinent Findings Denies nausea 02/15/2017 None hypertension Onset and Resolution ongoing 02/15/2017 None hypertension Onset of Symptom during adulthood 02/15/2017 None hypertension Blood Pressure Values patient checking blood pressure at home - did not bring in readings 02/15/2017 None hypertension Alleviating Factors medication 02/15/2017 None hypertension Pertinent Findings dizziness 02/15/2017 occasionally if he stands up too quickly hypertension Pertinent Findings Denies edema 02/15/2017 None hypertension Pertinent Findings dyspnea 02/15/2017 None hypertension Pertinent Findings decreased energy 02/15/2017 None hypertension Pertinent Findings vomiting 02/15/2017 None hypertension Pertinent Findings nausea 02/15/2017 None Annual Medicare Wellness Exam Alcohol Use does not drink any alcohol 01/27/2017 None Annual Medicare Wellness Exam Aspirin Use yes 01/27/2017 None Annual Medicare Wellness Exam Blood Glucose (self reported) borderline high (100-125) 01/27/2017 None Annual Medicare Wellness Exam Blood Pressure (self reported ) borderline (120/80 - 139/89) 01/27/2017 None Annual Medicare Wellness Exam Cholesterol (self reported) don't know 01/27/2017 None Annual Medicare Wellness Exam Depression (last 6 months) almost never 01/27/2017 None Annual Medicare Wellness Exam Depression or Hopelessness almost never 01/27/2017 None Annual Medicare Wellness Exam Describe Your Health good 01/27/2017 None Annual Medicare Wellness Exam Exercise Habits does not exercise 01/27/2017 None Annual Medicare Wellness Exam Handling Stress usually malu effectively 01/27/2017 None Annual Medicare Wellness Exam Hemaglobin A-1C (self reported ) don't know 01/27/2017 None Annual Medicare Wellness Exam Hours of Sleep 10 01/27/2017 None Annual Medicare Wellness Exam Interaction with Friends yes 01/27/2017 None Annual Medicare Wellness Exam Interests & Pleasure almost all of the time 01/27/2017 None Annual Medicare Wellness Exam Life Satisfaction satisfied 01/27/2017 None Annual Medicare Wellness Exam Motor Vehicle Safety always fastens seat belt: y 01/27/2017 None Annual Medicare Wellness Exam Motor Vehicle Safety drives after drinking: n 01/27/2017 None Annual Medicare Wellness Exam Motor Vehicle Safety rides with someone who has been drinking: n 2016 None Annual Medicare Wellness Exam Nutrition servings of fried food / high fat foods per day: 0 2016 None Annual Medicare Wellness Exam Nutrition servings of high fiber / whole grain per day: 2 01/27/2017 None Annual Medicare Wellness Exam Nutrition servings of vegetables / fruit per day: 2 01/27/2017 None Annual Medicare Wellness Exam Smoking and Tobacco Use non smoker 01/27/2017 None Annual Medicare Wellness Exam Social & Emotional Support always 01/27/2017 None Annual Medicare Wellness Exam Stress almost never 01/27/2017 None Annual Medicare Wellness Exam Sun Exposure protects skin when outdoors: y 01/27/2017 None diabetes mellitus Quality non-insulin dependent 01/25/2017 None diabetes mellitus Alleviating Factors medication 01/25/2017 None diabetes mellitus Exacerbating Factors diet 01/25/2017 None diabetes mellitus Pertinent Findings Denies nausea 01/25/2017 None diabetes mellitus Test results Pt checking blood glucose readings, did not bring results to clinic 01/25/2017 None Hospital Follow Up _ Other: hypoglycemia 01/25/2017 None Hospital Follow Up Quality chronic illness 01/25/2017 None hypertension Onset of Symptom during adulthood 01/11/2017 None hypertension Blood Pressure Values patient checking blood pressure at home - did not bring in readings 01/11/2017 None hypertension Alleviating Factors medication 01/11/2017 None hypertension Pertinent Findings dizziness 01/11/2017 occasionally if he stands up too quickly hypertension Pertinent Findings Denies edema 01/11/2017 None diabetes mellitus Quality non-insulin dependent 01/11/2017 None diabetes mellitus Alleviating Factors medication 01/11/2017 None diabetes mellitus Exacerbating Factors diet 01/11/2017 None diabetes mellitus Pertinent Findings Denies nausea 01/11/2017 None cough Quality intermittent 01/11/2017 None cough Quality productive 01/11/2017 None cough Onset of Symptom 1-2 weeks ago 01/11/2017 None cough Pertinent Findings sputum production 01/11/2017 (whitish) cough Pertinent Findings Denies chills 01/11/2017 None diabetes mellitus Test results Pt checking blood glucose readings, did not bring results to clinic 01/11/2017 None diabetes mellitus Glucose monitoring occasional glucose testing 01/11/2017 ( every other day) cough Quality acute None hypertension Onset and Resolution ongoing 01/11/2017 None cough Onset and Resolution sudden in onset 01/11/2017 None hypertension Onset and Resolution ongoing 10/12/2016 None hypertension Onset of Symptom during adulthood 10/12/2016 None hypertension Blood Pressure Values patient checking blood pressure at home - did not bring in readings 10/12/2016 None hypertension Alleviating Factors medication 10/12/2016 None hypertension Pertinent Findings Denies dizziness 10/12/2016 None hypertension Pertinent Findings Denies dyspnea 10/12/2016 None diabetes mellitus Quality non-insulin dependent 10/12/2016 None diabetes mellitus Alleviating Factors medication 10/12/2016 None diabetes mellitus Exacerbating Factors diet 10/12/2016 None hypertension Pertinent Findings Denies edema 10/12/2016 None diabetes mellitus Test results Pt checking blood glucose readings, did not bring results to clinic 10/12/2016 None diabetes mellitus Glucose monitoring daily 10/12/2016 None diabetes mellitus Pertinent Findings Denies nausea 10/12/2016 None hip pain Location on the left 08/04/2016 None hip pain Quality acute 08/04/2016 None hip pain Quality intermittent 08/04/2016 None hip pain Onset and Resolution sudden in onset 08/04/2016 None hip pain Onset of Symptom 1.5+ months ago 08/04/2016 None hip pain Mechanism of injury ground level fall 08/04/2016 None shoulder pain Location on the right shoulder 08/04/2016 None shoulder pain Quality acute 08/04/2016 None shoulder pain Quality intermittent 08/04/2016 None shoulder pain Onset and Resolution sudden in onset 08/04/2016 None shoulder pain Onset and Resolution ongoing 08/04/2016 None hypertension Onset and Resolution ongoing 06/07/2016 None hypertension Onset of Symptom during adulthood 06/07/2016 None hypertension Blood Pressure Values patient checking blood pressure at home - did not bring in readings 06/07/2016 None hypertension Alleviating Factors medication 06/07/2016 None hypertension Pertinent Findings Denies dizziness 06/07/2016 None hypertension Pertinent Findings Denies dyspnea 06/07/2016 None diabetes mellitus Quality non-insulin dependent 06/07/2016 None diabetes mellitus Test results Pt checking blood glucose readings, did not bring results to clinic 06/07/2016 None diabetes mellitus Glucose monitoring daily 06/07/2016 before supper diabetes mellitus Alleviating Factors medication 06/07/2016 None diabetes mellitus Exacerbating Factors diet 06/07/2016 None diarrhea Quality acute 06/07/2016 None diarrhea Quality intermittent 06/07/2016 None diarrhea Quality loose 06/07/2016 None diarrhea Alleviating Factors medication 06/07/2016 None hypertension Quality intermittent 03/30/2016 None hypertension Onset and Resolution ongoing 03/30/2016 None hypertension Blood Pressure Values patient checking blood pressure at home - did not bring in readings 03/30/2016 None hypertension Severity mild 03/30/2016 None hypertension Pertinent Findings Denies dizziness 03/30/2016 None hypertension Pertinent Findings Denies dyspnea 03/30/2016 None diabetes mellitus Onset of Symptom onset as an adult 03/30/2016 None diabetes mellitus Quality NIDDM 03/30/2016 None diabetes mellitus Severity mild 03/30/2016 None diabetes mellitus Pertinent Findings Denies dizziness 03/30/2016 None diabetes mellitus Pertinent Findings Denies dyspnea 03/30/2016 None hypertension Quality intermittent 09/30/2015 None hypertension Onset and Resolution ongoing 09/30/2015 None hypertension Severity mild 09/30/2015 None hypertension Pertinent Findings Denies dizziness 09/30/2015 None hypertension Pertinent Findings Denies dyspnea 09/30/2015 None diabetes mellitus Onset of Symptom onset as an adult 09/30/2015 None diabetes mellitus Quality NIDDM 09/30/2015 None diabetes mellitus Severity mild 09/30/2015 None diabetes mellitus Pertinent Findings Denies dizziness 09/30/2015 None diabetes mellitus Pertinent Findings Denies dyspnea 09/30/2015 None hypertension Blood Pressure Values patient checking blood pressure at home - did not bring in readings 09/30/2015 None diabetes mellitus Glucose monitoring daily 09/30/2015 in the mony diabetes mellitus Blood glucose levels between 60 and 120 09/30/2015 86 this am hypertension Quality intermittent 07/01/2015 None diabetes mellitus Quality NIDDM 07/01/2015 None diabetes mellitus Glucose monitoring daily 07/01/2015 None diabetes mellitus Test results Pt checking blood glucose readings, did not bring results to clinic 07/01/2015 None diabetes mellitus Pertinent Findings Denies dizziness 07/01/2015 None diabetes mellitus Pertinent Findings Denies dyspnea 07/01/2015 None hypertension Pertinent Findings Denies dizziness 07/01/2015 None hypertension Pertinent Findings Denies dyspnea 07/01/2015 None hypertension Onset and Resolution ongoing 07/01/2015 None hypertension Severity mild 07/01/2015 None diabetes mellitus Onset of Symptom onset as an adult 07/01/2015 None diabetes mellitus Severity mild 07/01/2015 None hypertension Onset and Resolution ongoing 05/27/2015 None hypertension Onset of Symptom during adulthood 05/27/2015 None hypertension Blood Pressure Values patient checking blood pressure at home - did not bring in readings 05/27/2015 None hypertension Frequency of Episodes daily 05/27/2015 None hypertension Blood Pressure Values Stage 1:SBP 140-159 mmHg / DBP 90-99 mmHg 05/27/2015 None hypertension Alleviating Factors medication 05/27/2015 None diabetes mellitus Onset of Symptom onset as an adult 05/27/2015 None diabetes mellitus Test results Pt checking blood glucose readings, did not bring results to clinic 05/27/2015 None diabetes mellitus Blood glucose levels between 60 and 120 05/27/2015 None diabetes mellitus Glucose monitoring daily 05/27/2015 None diabetes mellitus Nutrition regular diet 05/27/2015 None diabetes mellitus Exercise minimal exercise 05/27/2015 None diabetes mellitus Quality non-insulin dependent 05/27/2015 None diabetes mellitus Severity mild 05/27/2015 None Advance Directives No Advance Directive data Encounters Encounter Performer Location Codes Date [id number]) [id number] EST. PATIENT, LEVEL IV Diagnosis: Essential (primary) hypertension[ICD10: I10] Diagnosis: Type 2 diabetes mellitus without complications[ICD10: E11.9] Diagnosis: Chronic atrial fibrillation[ICD10: I48.2] Diagnosis: Rash and other nonspecific skin eruption[ICD10: R21] Rosalinda Larsen MD, [facility] CPT-4: 56704 01/17/2018 [id number]) [id number] EST. PATIENT, LEVEL IV Diagnosis: Essential (primary) hypertension[ICD10: I10] Diagnosis: Chronic kidney disease, stage 4 (severe)[ICD10: N18.4] Diagnosis: Anemia in chronic kidney disease[ICD10: D63.1] Diagnosis: Type 2 diabetes mellitus with hyperglycemia[ICD10: E11.65] Diagnosis: Chronic atrial fibrillation[ICD10: I48.2] Diagnosis: Vitamin D deficiency, unspecified[ICD10: E55.9] Diagnosis: Rash and other nonspecific skin eruption[ICD10: R21] Magalie Larsen MD, [facility] CPT-4: [id number] 09/20/2017 [id number]) [id number] EST. PATIENT, LEVEL IV Diagnosis: Essential (primary) hypertension[ICD10: I10] Diagnosis: Type 2 diabetes mellitus without complications[ICD10: E11.9] Diagnosis: Anemia in chronic kidney disease[ICD10: D63.1] Magalie Larsen MD, [facility] CPT-4: 22940 05/17/2017 ([id number]) [id number] EST. PATIENT, LEVEL IV Diagnosis: Essential (primary) hypertension[ICD10: I10] Diagnosis: Type 2 diabetes mellitus without complications[ICD10: E11.9] Diagnosis: Chronic atrial fibrillation[ICD10: I48.2] Magalie Larsen MD, [facility] CPT-4: 29083 03/15/2017 ([id number]) 22606 EST. PATIENT, LEVEL IV Diagnosis: Essential (primary) hypertension[ICD10: I10] Diagnosis: Anemia in chronic kidney disease[ICD10: D63.1] Diagnosis: Type 2 diabetes mellitus with hyperglycemia[ICD10: E11.65] Magalie Larsen MD, [facility] CPT-4: 06478 02/15/2017 ([id number]) 69677 EST. PATIENT, LEVEL III Diagnosis: Essential (primary) hypertension[ICD10: I10] Diagnosis: Type 2 diabetes mellitus with hyperglycemia[ICD10: E11.65] Magalie Larsen MD, [facility] CPT-4: 34245 01/25/2017 ([id number]) 15150 EST. PATIENT, LEVEL IV Diagnosis: Essential (primary) hypertension[ICD10: I10] Diagnosis: Type 2 diabetes mellitus without complications[ICD10: E11.9] Diagnosis: Chronic atrial fibrillation[ICD10: I48.2] Rosalinda Larsen MD [facility] CPT-4: 82590 01/11/2017 ([id number]) 69643 EST. PATIENT, LEVEL IV Diagnosis: Type 2 diabetes mellitus without complications[ICD10: E11.9] Diagnosis: Essential (primary) hypertension[ICD10: I10] Diagnosis: Chronic atrial fibrillation[ICD10: I48.2] Rosalinda Larsen MD, [facility] CPT-4: 47291 10/12/2016 ([id number]) 07138 EST. PATIENT, LEVEL IV Diagnosis: Fracture of other parts of pelvis, subsequent encounter for fracture with delayed healing[ICD10: S32.89XG] Diagnosis: Type 2 diabetes mellitus without complications[ICD10: E11.9] Diagnosis: Essential (primary) hypertension[ICD10: I10] Diagnosis: Chronic atrial fibrillation[ICD10: I48.2] Diagnosis: Unilateral inguinal hernia, without obstruction or gangrene, recurrent[ICD10: K40.91] Diagnosis: Dysuria[ICD10: R30.0] KALPESH Porras MD CPT-4: 35490 08/04/2016 ([id number]) 66767 EST. PATIENT, LEVEL IV Diagnosis: Type 2 diabetes mellitus without complications[ICD10: E11.9] Diagnosis: Essential (primary) hypertension[ICD10: I10] Diagnosis: Chronic atrial fibrillation[ICD10: I48.2] [facility] CPT-4: 16869 06/07/2016 ([id number]) 55836 EST. PATIENT, LEVEL IV Diagnosis: Essential (primary) hypertension[ICD10: I10] Diagnosis: Chronic atrial fibrillation[ICD10: I48.2] Diagnosis: Type 2 diabetes mellitus without complications[ICD10: E11.9] KALPESH Porras MD CPT-4: 32169 03/30/2016 ([id number]) 49007 EST. PATIENT, LEVEL IV Diagnosis: Essential (primary) hypertension[ICD10: I10] Diagnosis: Type 1 diabetes mellitus without complications[ICD10: E10.9] Diagnosis: Impacted cerumen, right ear[ICD10: H61.21] [facility] CPT-4: 66874 09/30/2015 ([id number]) 36132 EST. PATIENT, LEVEL IV Diagnosis: ESSENTIAL HYPERTENSION[ICD9: 401.9] Diagnosis: ATRIAL FIBRILLATION[ICD9: 427.31] Diagnosis: DIABETES TYPE II[ICD9: 250.00] Diagnosis: Elevated digoxin level[ICD9: 796.0] [facility] CPT-4: 90411 07/01/2015 ([id number]) OFFICE VISIT, NEW - LEVEL 4 Diagnosis: ESSENTIAL HYPERTENSION[ICD9: 401.9] Diagnosis: ATRIAL FIBRILLATION[ICD9: 427.31] Diagnosis: DIABETES TYPE II[ICD9: 250.00] [facility] CPT- 4: 25502 05/27/2015 Plan of Care Planned Activity Notes Codes Status Date Appointment: Rosalinda Larsen WPtel: [phone] [facility] (15 min) Moderate 05/16/2018 Appointment: Rosalinda Larsen WPtel: [phone] [facility] (15 min) Moderate 04/24/2018 Visit Plan: Medicare Exam - today we discussed the patients past history, immunizations, preventative exams/evaluations - colonoscopy, fecal occult blood testing, routine labs for renal function, glucose, cholesterol, osteoporosis evaluations, cardiovascular testing and cancer screenings. We have also discussed mental health and the signs/symptoms of depression. The patient was advised of home safety evaluations and the need to make sure that as the aging process continues, we need to be aware of different ways to make the home a safer place to reside. The patient has also been counseled that exercise is necessary - and of utmost importance as we age to help decrease fall risk and to maintain independece in the home. Today we discussed the need for the patient to create paperwork for Advanced directives as well as for the patient to provide this office with a copy of her DOPA paperwork for health care surrogate. 02/02/2018 Visit Plan: Medicare Exam - today we discussed the patients past history, immunizations, preventative exams/evaluations - colonoscopy, fecal occult blood testing, routine labs for renal function, glucose, cholesterol, osteoporosis evaluations, cardiovascular testing and cancer screenings. We have also discussed mental health and the signs/symptoms of depression. The patient was advised of home safety evaluations and the need to make sure that as the aging process continues, we need to be aware of different ways to make the home a safer place to reside. The patient has also been counseled that exercise is necessary - and of utmost importance as we age to help decrease fall risk and to maintain independece in the home. Today we discussed the need for the patient to create paperwork for Advanced directives as well as for the patient to provide this office with a copy of her DOPA paperwork for health care surrogate. 02/02/2018 Appointment: Miryma Monae WPtel: [phone] [facility] [facility] - Annual Wellness Visit 02/02/2018 Patient Education: Patient Medication Summary Completed 02/02/2018 Visit Plan: Hypertension - well controlled - continue with current medications, continue with no added salt diet. Pt has been encouraged to exercise daily. The pt has been advised to call the office if there are any acute concerns about change in blood pressure readings at home. Chronic renal failure stage 4-has been stable-patient has stopped seeing nephrology Rash - suspect this is due to amiodarone - Diabetes Mellitus -stable - The patient has been instructed to continue with current medications as previously directed, continue with regular FSBS monitoring to assure continued control of diabetes. Pt to call for any acute concerns, complaints, or if the blood glucose readings are starting to become less controlled. 01/17/2018 Appointment: Rosalinda Larsen WPtel: [address] [place], [place] [id number] (30 min) [facility] 01/17/2018 Patient Education: Patient Medication Summary Completed 01/17/2018 Visit Plan: Hypertension - well controlled - continue with current medications, continue with no added salt diet. Pt has been encouraged to exercise daily. The pt has been advised to call the office if there are any acute concerns about change in blood pressure readings at home. Chronic renal failure stage 4-check labs today-patient has stopped seeing nephrology Rash- culture today-start claritin-will await culture results -discussed sending rx steroid cream for itching if symptoms persist Diabetes Mellitus - I have recommended for the patient to have follow up labs prior to the next office visit. The patient has been instructed to continue with current medications as previously directed, continue with regular FSBS monitoring to assure continued control of diabetes. Pt to call for any acute concerns, complaints, or if the blood glucose readings are starting to become less controlled. Vitamin D def- check level today 09/20/2017 Visit Plan: Hypertension - well controlled - continue with current medications, continue with no added salt diet. Pt has been encouraged to exercise daily. The pt has been advised to call the office if there are any acute concerns about change in blood pressure readings at home. Chronic renal failure stage 4-check labs today-patient has stopped seeing nephrology Rash- culture today-start claritin-will await culture results -discussed sending rx steroid cream for itching if symptoms persist Diabetes Mellitus - I have recommended for the patient to have follow up labs prior to the next office visit. The patient has been instructed to continue with current medications as previously directed, continue with regular FSBS monitoring to assure continued control of diabetes. Pt to call for any acute concerns, complaints, or if the blood glucose readings are starting to become less controlled. Vitamin D def- check level today 09/20/2017 Appointment: Magalie Andre WPtel: [phone] [phone] (30 min) Complex 09/20/2017 Patient Education: Patient Medication Summary Completed 09/20/2017 Visit Plan: Hypertension - well controlled - continue with current medications, continue with no added salt diet. Pt has been encouraged to exercise daily. The pt has been advised to call the office if there are any acute concerns about change in blood pressure readings at home. Diabetes Mellitus - controlled - per recent FSBS reports. I have recommended for the patient to have follow up labs prior to the next office visit. The patient has been instructed to continue with current medications as previously directed, continue with regular FSBS monitoring to assure continued control of diabetes. Pt to call for any acute concerns, complaints, or if the blood glucose readings are starting to become less controlled. Anemia in chronic renal disease-check labs 05/17/2017 Appointment: Magalie Andre WPtel: [phone] [phone] (30 min) Complex 05/17/2017 Patient Education: Patient Medication Summary Completed 05/17/2017 Visit Plan: Hypertension - well controlled - continue with current medications, continue with no added salt diet. Pt has been encouraged to exercise daily. The pt has been advised to call the office if there are any acute concerns about change in blood pressure readings at home. Diabetes Mellitus - controlled - per recent FSBS reports. I have recommended for the patient to have follow up labs prior to the next office visit. The patient has been instructed to continue with current medications as previously directed, continue with regular FSBS monitoring to assure continued control of diabetes. Pt to call for any acute concerns, complaints, or if the blood glucose readings are starting to become less controlled. Atrial Fibrillation - pt on chronic anticoagulation and is currently rate controlled. The pt is to have labs done as appropriate to monitor medication levels and is to report if they start to feel as if their heart rate is becoming uncontrolled. 03/15/2017 Appointment: [phone] (30 min) Complex 03/15/2017 Patient Education: Patient Medication Summary Completed 03/15/2017 Visit Plan: Hypertension - uncontrolled - the patient's medications have been modified as documented in the visit note. The patient has been counseled to cut back on salt in diet for a no added salt diet, low fat diet, start an exercise program with low weight bearing exercises and higher aerobic activity for heart health. The patient is to check blood pressure readings as an outpatient and either fax, call, or email the readings to the office next week for practitioner to review. The pt is to call for acute concerns. Diabetes Mellitus - controlled - per recent FSBS reports. I have recommended for the patient to have follow up labs prior to the next office visit. The patient has been instructed to continue with current medications as previously directed, continue with regular FSBS monitoring to assure continued control of diabetes. Pt to call for any acute concerns, complaints, or if the blood glucose readings are starting to become less controlled. Anemia in chronic renal disease-recheck labs in 1 months-see entry processor in 02/15/2017 Appointment: Magalie Andre [facility]Ptel[phone] (30 min) Complex 02/15/2017 Patient Education: Patient Medication Summary Completed 02/15/2017 Visit Plan: Medicare Exam - today we discussed the patients past history, immunizations, preventative exams/evaluations - colonoscopy, fecal occult blood testing, routine labs for renal function, glucose, cholesterol, osteoporosis evaluations, cardiovascular testing and cancer screenings. We have also discussed mental health and the signs/symptoms of depression. The patient was advised of home safety evaluations and the need to make sure that as the aging process continues, we need to be aware of different ways to make the home a safer place to reside. The patient has also been counseled that exercise is necessary - and of utmost importance as we age to help decrease fall risk and to maintain independece in the home. Today we discussed the need for the patient to create paperwork for Advanced directives as well as for the patient to provide this office with a copy of her DOPA paperwork for health care surrogate. 01/27/2017 Patient Education: Patient Medication Summary Completed 01/27/2017 Visit Plan: HTN-hospital follow up-blood pressure improved- no changes DM-patient did not bring log to appt-check Hgb A1C and bring log to appt in 2-3 weeks 01/25/2017 Appointment: Magalie Andre WPtel: [phone] [phone] [place] (30 min) Complex 01/25/2017 Patient Education: Patient Medication Summary Completed 01/25/2017 Appointment: Magalie Andre WPtel: [phone] [phone] [place] (30 min) Complex 01/24/2017 Appointment: Rosalinda Larsen WPtel: [phone] [facility] (15 min) Moderate 01/20/2017 Visit Plan: Hypertension - uncontrolled - the patient's medications have been modified as documented in the visit note. The patient has been counseled to cut back on salt in diet for a no added salt diet, low fat diet, start an exercise program with low weight bearing exercises and higher aerobic activity for heart health. The patient is to check blood pressure readings as an outpatient and either fax, call, or email the readings to the office next week for practitioner to review. The pt is to call for acute concerns. increase amlodipine from 5mg to 10mg Allergies - claritin 10mg one time daily (this is over the counter) use the inhaler i gave you - take one time daily until the breathing medication is gone in two weeks Diabetes Mellitus - controlled - per recent FSBS reports. I have recommended for the patient to have follow up labs prior to the next office visit. The patient has been instructed to continue with current medications as previously directed, continue with regular FSBS monitoring to assure continued control of diabetes. Pt to call for any acute concerns, complaints, or if the blood glucose readings are starting to become less controlled. Atrial fibrillation- stable - continue with current medication. 01/11/2017 Appointment: Rosalinda Larsen WPtel: [phone] [place] (15 min) Moderate 01/11/2017 Patient Education: Patient Medication Summary Completed 01/11/2017 Visit Plan: Hypertension - well controlled - continue with current medications, continue with no added salt diet. Pt has been encouraged to exercise daily. The pt has been advised to call the office if there are any acute concerns about change in blood pressure readings at home. Diabetes Mellitus - controlled - per recent FSBS reports. I have recommended for the patient to have follow up labs prior to the next office visit. The patient has been instructed to continue with current medications as previously directed, continue with regular FSBS monitoring to assure continued control of diabetes. Pt to call for any acute concerns, complaints, or if the blood glucose readings are starting to become less controlled. Atrial Fibrillation - pt on chronic anticoagulation and is currently rate controlled. The pt is to have labs done as appropriate to monitor medication levels and is to report if they start to feel as if their heart rate is becoming uncontrolled. 10/12/2016 Appointment: Rosalinda Larsen WPtel: [phone] (15 min) Moderate 10/12/2016 Patient Education: Patient Medication Summary Completed 10/12/2016 Patient Education: Hypertension Completed 10/12/2016 Referral: External, Ordering Provider Referral Completed 08/05/2016 Visit Plan: Left Inguinal Hernia into inguinal canal and apparently pt had a few episodes of "testicle descending" when he has bowel movements. I have contacted Dr. Resendiz's office and he will be seen tomorrow for surgical evaluation. The patient would prefer not to have surgery at [facility] if possible. DM - controlled per his 's report. Hypertension - well controlled - continue with current medications, continue with no added salt diet. Pt has been encouraged to exercise daily. The pt has been advised to call the office if there are any acute concerns about change in blood pressure readings at home. Atrial Fibrillation - pt on chronic anticoagulation and is currently rate controlled. The pt is to have labs done as appropriate to monitor medication levels and is to report if they start to feel as if their heart rate is becoming uncontrolled. Pelvic fracture - check vitamin D level since pt has had prolonged healing time. 08/04/2016 Appointment: Rosalinda Larsen WPtel: [phone] [facility] (15 min) Moderate 08/04/2016 Patient Education: Patient Medication Summary Completed 08/04/2016 Care Plan: Referral Order SNOMED-CT : [id number] Pending 08/04/2016 [place] [phone] [facility] (15 min) Moderate 08/03/2016 Visit Plan: Hypertension - well controlled - continue with current medications, continue with no added salt diet. Pt has been encouraged to exercise daily. The pt has been advised to call the office if there are any acute concerns about change in blood pressure readings at home. Atrial Fibrillation - pt on chronic anticoagulation and is currently rate controlled. The pt is to have labs done as appropriate to monitor medication levels and is to report if they start to feel as if their heart rate is becoming uncontrolled. Diabetes Mellitus - controlled - per recent FSBS reports. I have recommended for the patient to have follow up labs prior to the next office visit. The patient has been instructed to continue with current medications as previously directed, continue with regular FSBS monitoring to assure continued control of diabetes. Pt to call for any acute concerns, complaints, or if the blood glucose readings are starting to become less controlled. 06/07/2016 Appointment: Rosalinda Larsen WPtel: [phone] [facility] (15 min) Moderate 06/07/2016 Patient Education: Patient Medication Summary Completed 06/07/2016 Patient Education: Hypertension Completed 06/07/2016 Visit Plan: Hypertension - well controlled - continue with current medications, continue with no added salt diet. Pt has been encouraged to exercise daily. The pt has been advised to call the office if there are any acute concerns about change in blood pressure readings at home. Diabetes Mellitus - controlled - per recent FSBS reports. I have recommended for the patient to have follow up labs prior to the next office visit. The patient has been instructed to continue with current medications as previously directed, continue with regular FSBS monitoring to assure continued control of diabetes. Pt to call for any acute concerns, complaints, or if the blood glucose readings are starting to become less controlled. Atrial Fibrillation - pt on chronic anticoagulation and is currently rate controlled. The pt is to have labs done as appropriate to monitor medication levels and is to report if they start to feel as if their heart rate is becoming uncontrolled. 03/30/2016 Patient Education: Patient Medication Summary Completed 03/30/2016 Care Plan: Comp Metabolic Pending 03/30/2016 Care Plan: Tsh Pending 03/30/2016 Care Plan: Cbc With Differential Pending 03/30/2016 Care Plan: %Hba1C [facility] : [id number] Pending 03/30/2016 Visit Plan: Hypertension - well controlled - continue with current medications, continue with no added salt diet. Pt has been encouraged to exercise daily. The pt has been advised to call the office if there are any acute concerns about change in blood pressure readings at home. Diabetes Mellitus - Uncontrolled - per recent FSBS reports. I have recommended for the patient to have follow up labs prior to the next office visit. The patient has been instructed to continue with current medications as previously directed, continue with regular FSBS monitoring to assure continued control of diabetes. Pt to call for any acute concerns, complaints, or if the blood glucose readings are starting to become less controlled. I have recommended for the patient to follow more strictly to the diabetic diet as discussed in clinic to allow for greater blood glucose control. BPH - start on tamsulosin.. 09/30/2015 Appointment: Rosalinda Larsen WPtel: [address] [place], [place] [id number] (15 min) Moderate 09/30/2015 Patient Education: Patient Medication Summary Completed 09/30/2015 Patient Education: Hypertension Completed 09/30/2015 Appointment: (15 min) Moderate 07/08/2015 Visit Plan: Hypertension - well controlled - continue with current medications, continue with no added salt diet. Pt has been encouraged to exercise daily. The pt has been advised to call the office if there are any acute concerns about change in blood pressure readings at home. Diabetes Mellitus - controlled - per recent FSBS reports. I have recommended for the patient to have follow up labs prior to the next office visit. The patient has been instructed to continue with current medications as previously directed, continue with regular FSBS monitoring to assure continued control of diabetes. Pt to call for any acute concerns, complaints, or if the blood glucose readings are starting to become less controlled. Digoxin level was elevated in May - his level is now normal. Atrial Fibrillation - pt on chronic anticoagulation and is currently rate controlled. The pt is to have labs done as appropriate to monitor medication levels and is to report if they start to feel as if their heart rate is becoming uncontrolled. 07/01/2015 Appointment: Rosalinda Larsen WPtel: [phone] [facility] (15 min) Moderate 07/01/2015 Patient Education: Patient Medication Summary Completed 07/01/2015 Patient Education: Hypertension Completed 07/01/2015 Visit Plan: Hypertension - uncontrolled - the patient's medications have been modified as documented in the visit note. The patient has been counseled to cut back on salt in diet for a no added salt diet, low fat diet, start an exercise program with low weight bearing exercises and higher aerobic activity for heart health. The patient is to check blood pressure readings as an outpatient and either fax, call, or email the readings to the office next week for practitioner to review. The pt is to call for acute concerns. Diabetes Mellitus - controlled - per recent FSBS reports. I have recommended for the patient to have follow up labs prior to the next office visit. The patient has been instructed to continue with current medications as previously directed, continue with regular FSBS monitoring to assure continued control of diabetes. Pt to call for any acute concerns, complaints, or if the blood glucose readings are starting to become less controlled. Atrial Fibrillation - pt on chronic anticoagulation and is currently rate controlled. The pt is to have labs done as appropriate to monitor medication levels and is to report if they start to feel as if their heart rate is becoming uncontrolled. 05/27/2015 Appointment: Rosalinda Larsen WPtel: [phone] [facility] [place] (S) New Patient 05/27/2015 Patient Education: Patient Medication Summary Completed 05/27/2015 Patient Education: Hypertension Completed 05/27/2015 Referral: External, Ordering Provider Referral Appointment Requested Instructions Comment . Hypertension - well controlled - continue with current medications, continue with no added salt diet. Pt has been encouraged to exercise daily. The pt has been advised to call the office if there are any acute concerns about change in blood pressure readings at home. Chronic renal failure stage 4-has been stable-patient has stopped seeing nephrology Rash - suspect this is due to amiodarone - Diabetes Mellitus -stable - The patient has been instructed to continue with current medications as previously directed, continue with regular FSBS monitoring to assure continued control of diabetes. Pt to call for any acute concerns, complaints, or if the blood glucose readings are starting to become less controlled. . Medicare Exam - today we discussed the patients past history, immunizations, preventative exams/evaluations - colonoscopy, fecal occult blood testing, routine labs for renal function, glucose, cholesterol, osteoporosis evaluations, cardiovascular testing and cancer screenings. We have also discussed mental health and the signs/symptoms of depression. The patient was advised of home safety evaluations and the need to make sure that as the aging process continues, we need to be aware of different ways to make the home a safer place to reside. The patient has also been counseled that exercise is necessary - and of utmost importance as we age to help decrease fall risk and to maintain independece in the home. Today we discussed the need for the patient to create paperwork for Advanced directives as well as for the patient to provide this office with a copy of her DOPA paperwork for health care surrogate. . Medicare Exam - today we discussed the patients past history, immunizations, preventative exams/evaluations - colonoscopy, fecal occult blood testing, routine labs for renal function, glucose, cholesterol, osteoporosis evaluations, cardiovascular testing and cancer screenings. We have also discussed mental health and the signs/symptoms of depression. The patient was advised of home safety evaluations and the need to make sure that as the aging process continues, we need to be aware of different ways to make the home a safer place to reside. The patient has also been counseled that exercise is necessary - and of utmost importance as we age to help decrease fall risk and to maintain independece in the home. Today we discussed the need for the patient to create paperwork for Advanced directives as well as for the patient to provide this office with a copy of her DOPA paperwork for health care surrogate. if the diarrhea does not improve - then call the office in 5-7 days. . Hypertension - well controlled - continue with current medications, continue with no added salt diet. Pt has been encouraged to exercise daily. The pt has been advised to call the office if there are any acute concerns about change in blood pressure readings at home. Atrial Fibrillation - pt on chronic anticoagulation and is currently rate controlled. The pt is to have labs done as appropriate to monitor medication levels and is to report if they start to feel as if their heart rate is becoming uncontrolled. Diabetes Mellitus - controlled - per recent FSBS reports. I have recommended for the patient to have follow up labs prior to the next office visit. The patient has been instructed to continue with current medications as previously directed, continue with regular FSBS monitoring to assure continued control of diabetes. Pt to call for any acute concerns, complaints, or if the blood glucose readings are starting to become less controlled. culture of rash claritin 10mg daily call if itching does not stop and we can send in a prescription for a steroid cream check labs today . Hypertension - well controlled - continue with current medications, continue with no added salt diet. Pt has been encouraged to exercise daily. The pt has been advised to call the office if there are any acute concerns about change in blood pressure readings at home. Chronic renal failure stage 4-check labs today-patient has stopped seeing nephrology Rash-culture today-start claritin-will await culture results -discussed sending rx steroid cream for itching if symptoms persist Diabetes Mellitus - I have recommended for the patient to have follow up labs prior to the next office visit. The patient has been instructed to continue with current medications as previously directed, continue with regular FSBS monitoring to assure continued control of diabetes. Pt to call for any acute concerns, complaints, or if the blood glucose readings are starting to become less controlled. Vitamin D def-check level today culture of rash claritin 10mg daily call if itching does not stop and we can send in a prescription for a steroid cream check labs today . Hypertension - well controlled - continue with current medications, continue with no added salt diet. Pt has been encouraged to exercise daily. The pt has been advised to call the office if there are any acute concerns about change in blood pressure readings at home. Chronic renal failure stage 4-check labs today-patient has stopped seeing nephrology Rash-culture today-start claritin-will await culture results -discussed sending rx steroid cream for itching if symptoms persist Diabetes Mellitus - I have recommended for the patient to have follow up labs prior to the next office visit. The patient has been instructed to continue with current medications as previously directed, continue with regular FSBS monitoring to assure continued control of diabetes. Pt to call for any acute concerns, complaints, or if the blood glucose readings are starting to become less controlled. Vitamin D def-check level today increase amlodipine from 5mg to 10mg claritin 10mg one time daily (this is over the counter) use the inhaler i gave you - take one time daily until the breathing medication is gone in two weeks . Hypertension - uncontrolled - the patient's medications have been modified as documented in the visit note. The patient has been counseled to cut back on salt in diet for a no added salt diet, low fat diet, start an exercise program with low weight bearing exercises and higher aerobic activity for heart health. The patient is to check blood pressure readings as an outpatient and either fax , call, or email the readings to the office next week for practitioner to review. The pt is to call for acute concerns. increase amlodipine from 5mg to 10mg Allergies - claritin 10mg one time daily (this is over the counter) use the inhaler i gave you - take one time daily until the breathing medication is gone in two weeks Diabetes Mellitus - controlled - per recent FSBS reports. I have recommended for the patient to have follow up labs prior to the next office visit. The patient has been instructed to continue with current medications as previously directed, continue with regular FSBS monitoring to assure continued control of diabetes. Pt to call for any acute concerns, complaints, or if the blood glucose readings are starting to become less controlled. Atrial fibrillation- stable - continue with current medication. . Hypertension - well controlled - continue with current medications, continue with no added salt diet. Pt has been encouraged to exercise daily. The pt has been advised to call the office if there are any acute concerns about change in blood pressure readings at home. Diabetes Mellitus - controlled - per recent FSBS reports. I have recommended for the patient to have follow up labs prior to the next office visit. The patient has been instructed to continue with current medications as previously directed, continue with regular FSBS monitoring to assure continued control of diabetes. Pt to call for any acute concerns, complaints, or if the blood glucose readings are starting to become less controlled. Digoxin level was elevated in May - his level is now normal. Atrial Fibrillation - pt on chronic anticoagulation and is currently rate controlled. The pt is to have labs done as appropriate to monitor medication levels and is to report if they start to feel as if their heart rate is becoming uncontrolled. INCREASE ATENOLOL TO 1.5 TABS DAILY . Hypertension - uncontrolled - the patient's medications have been modified as documented in the visit note. The patient has been counseled to cut back on salt in diet for a no added salt diet, low fat diet, start an exercise program with low weight bearing exercises and higher aerobic activity for heart health. The patient is to check blood pressure readings as an outpatient and either fax , call, or email the readings to the office next week for practitioner to review. The pt is to call for acute concerns. Diabetes Mellitus - controlled - per recent FSBS reports. I have recommended for the patient to have follow up labs prior to the next office visit. The patient has been instructed to continue with current medications as previously directed, continue with regular FSBS monitoring to assure continued control of diabetes. Pt to call for any acute concerns, complaints, or if the blood glucose readings are starting to become less controlled. Anemia in chronic renal disease-recheck labs in 1 months-see entry processor in March . Hypertension - well controlled - continue with current medications, continue with no added salt diet. Pt has been encouraged to exercise daily. The pt has been advised to call the office if there are any acute concerns about change in blood pressure readings at home. Diabetes Mellitus - controlled - per recent FSBS reports. I have recommended for the patient to have follow up labs prior to the next office visit. The patient has been instructed to continue with current medications as previously directed, continue with regular FSBS monitoring to assure continued control of diabetes. Pt to call for any acute concerns, complaints, or if the blood glucose readings are starting to become less controlled. Atrial Fibrillation - pt on chronic anticoagulation and is currently rate controlled. The pt is to have labs done as appropriate to monitor medication levels and is to report if they start to feel as if their heart rate is becoming uncontrolled. . Medicare Exam - today we discussed the patients past history, immunizations, preventative exams/evaluations - colonoscopy, fecal occult blood testing, routine labs for renal function, glucose, cholesterol, osteoporosis evaluations, cardiovascular testing and cancer screenings. We have also discussed mental health and the signs/symptoms of depression. The patient was advised of home safety evaluations and the need to make sure that as the aging process continues, we need to be aware of different ways to make the home a safer place to reside. The patient has also been counseled that exercise is necessary - and of utmost importance as we age to help decrease fall risk and to maintain independece in the home. Today we discussed the need for the patient to create paperwork for Advanced directives as well as for the patient to provide this office with a copy of her DOPA paperwork for health care surrogate. BRING BLOOD SUGAR LOG TO YOUR NEXT APPTOINTMENT . HTN-hospital follow up-blood pressure improved-no changes DM-patient did not bring log to appt-check Hgb A1C and bring log to appt in 2-3 weeks . Left Inguinal Hernia into inguinal canal and apparently pt had a few episodes of "testicle descending" when he has bowel movements. I have contacted Dr. Resendiz's office and he will be seen tomorrow for surgical evaluation. The patient would prefer not to have surgery at [facility] if possible. DM - controlled per his 's report. Hypertension - well controlled - continue with current medications, continue with no added salt diet. Pt has been encouraged to exercise daily. The pt has been advised to call the office if there are any acute concerns about change in blood pressure readings at home. Atrial Fibrillation - pt on chronic anticoagulation and is currently rate controlled. The pt is to have labs done as appropriate to monitor medication levels and is to report if they start to feel as if their heart rate is becoming uncontrolled. Pelvic fracture - check vitamin D level since pt has had prolonged healing time. . Hypertension - well controlled - continue with current medications, continue with no added salt diet. Pt has been encouraged to exercise daily. The pt has been advised to call the office if there are any acute concerns about change in blood pressure readings at home. Diabetes Mellitus - Uncontrolled - per recent FSBS reports. I have recommended for the patient to have follow up labs prior to the next office visit. The patient has been instructed to continue with current medications as previously directed, continue with regular FSBS monitoring to assure continued control of diabetes. Pt to call for any acute concerns, complaints, or if the blood glucose readings are starting to become less controlled. I have recommended for the patient to follow more strictly to the diabetic diet as discussed in clinic to allow for greater blood glucose control. BPH - start on tamsulosin.. . Hypertension - well controlled - continue with current medications, continue with no added salt diet. Pt has been encouraged to exercise daily. The pt has been advised to call the office if there are any acute concerns about change in blood pressure readings at home. Diabetes Mellitus - controlled - per recent FSBS reports. I have recommended for the patient to have follow up labs prior to the next office visit. The patient has been instructed to continue with current medications as previously directed, continue with regular FSBS monitoring to assure continued control of diabetes. Pt to call for any acute concerns, complaints, or if the blood glucose readings are starting to become less controlled. Atrial Fibrillation - pt on chronic anticoagulation and is currently rate controlled. The pt is to have labs done as appropriate to monitor medication levels and is to report if they start to feel as if their heart rate is becoming uncontrolled. . Hypertension - uncontrolled - the patient's medications have been modified as documented in the visit note. The patient has been counseled to cut back on salt in diet for a no added salt diet, low fat diet, start an exercise program with low weight bearing exercises and higher aerobic activity for heart health. The patient is to check blood pressure readings as an outpatient and either fax , call, or email the readings to the office next week for practitioner to review. The pt is to call for acute concerns. Diabetes Mellitus - controlled - per recent FSBS reports. I have recommended for the patient to have follow up labs prior to the next office visit. The patient has been instructed to continue with current medications as previously directed, continue with regular FSBS monitoring to assure continued control of diabetes. Pt to call for any acute concerns, complaints, or if the blood glucose readings are starting to become less controlled. Atrial Fibrillation - pt on chronic anticoagulation and is currently rate controlled. The pt is to have labs done as appropriate to monitor medication levels and is to report if they start to feel as if their heart rate is becoming uncontrolled. CONTINUE SAME MEDICATIONS-NO CHANGES EXCEPT ADD A PROBIOTIC DAILY TO HELP WITH YOUR LOOSE STOOLS -CALL IF SYMPTOMS DO NOT RESOLVE . Hypertension - well controlled - continue with current medications, continue with no added salt diet. Pt has been encouraged to exercise daily. The pt has been advised to call the office if there are any acute concerns about change in blood pressure readings at home. Diabetes Mellitus - controlled - per recent FSBS reports. I have recommended for the patient to have follow up labs prior to the next office visit. The patient has been instructed to continue with current medications as previously directed, continue with regular FSBS monitoring to assure continued control of diabetes. Pt to call for any acute concerns, complaints, or if the blood glucose readings are starting to become less controlled. Atrial Fibrillation - pt on chronic anticoagulation and is currently rate controlled. The pt is to have labs done as appropriate to monitor medication levels and is to report if they start to feel as if their heart rate is becoming uncontrolled. . Hypertension - well controlled - continue with current medications, continue with no added salt diet. Pt has been encouraged to exercise daily. The pt has been advised to call the office if there are any acute concerns about change in blood pressure readings at home. Diabetes Mellitus - controlled - per recent FSBS reports. I have recommended for the patient to have follow up labs prior to the next office visit. The patient has been instructed to continue with current medications as previously directed, continue with regular FSBS monitoring to assure continued control of diabetes. Pt to call for any acute concerns, complaints, or if the blood glucose readings are starting to become less controlled. Anemia in chronic renal disease-check labs
--- OUTSIDE RECORDS SUMMARY | 2018-09-13 07:03 | XMS REPORT | CCD ---
Author Author Rosalinda Larsen Organization Rosalinda Larsen MD, [facility] Address [address] [place] [address] Phone Care Team Providers Care Front Desk Attendant Name Role Phone PP Unavailable CCM Unavailable Summary Purpose Interface Exchange Insurance Providers Payer name Policy type / Coverage type Covered green party ID Effective Begin Date Effective End Date WPS Medicare Part B Medicare Part B [id number] Unknown Unknown [facility] Medicare Part B [id number] Unknown Unknown Family history Father Diagnosis Age [...] of transportation 05/27/[address]: 749071016 Never smoker 05/27/[address]: 029418295 Never drinks alcohol 05/27/2015 Allergies, Adverse Reactions, Alerts Allergies, Adverse Reactions, Alerts data not found Past Medical History Illness Codes Condition Status Onset Date Resolved Date Anemia in chronic kidney disease ICD-9: 285.21 ICD-10: D63.1 Active 02/15/2017 Unknown Chronic atrial fibrillation ICD-9: 427.31 ICD-10: I48.2 Active 05/26/2015 Unknown Chronic kidney disease, stage 4 (severe) ICD-9: 585.4 ICD-10: N18.4 Active 09/20/2017 Unknown Essential (primary) hypertension ICD-9: 401.1 ICD-10: I10 Active 01/11/2017 Unknown Rash and other nonspecific skin eruption ICD-9: 782.1 ICD-10: R21 Active 09/20/2017 Unknown Type 2 diabetes mellitus with hyperglycemia ICD-9: 250.00 ICD-10: E11.65 Active 01/25/2017 Unknown Vitamin D deficiency, unspecified ICD-9: 268.9 ICD-10: E55.9 Active 09/20/2017 Unknown Type 2 diabetes mellitus without complications ICD-9: 250.00 ICD-10: E11.9 Active 05/26/2015 Unknown Encounter for general adult medical examination with abnormal findings ICD-9: V70.0 ICD-10: Z00.01 Active 01/27/2017 Unknown Essential (primary) hypertension ICD-9: 401.9 ICD-10: [...] Problems Condition Codes Effective Dates Condition Status Anemia in chronic kidney disease ICD-9: 285.21 ICD-10: D63.1 02/15/2017 Active Chronic atrial fibrillation ICD-9: 427.31 ICD-10: I48.2 05/26/2015 Active Chronic kidney disease, stage 4 (severe) ICD-9: 585.4 ICD-10: N18.4 09/20/2017 Active Essential (primary) hypertension ICD-9: 401.1 ICD-10: I10 01/11/2017 Active Rash and other nonspecific skin eruption ICD-9: 782.1 ICD-10: R21 09/20/2017 Active Type 2 diabetes mellitus with hyperglycemia ICD-9: 250.00 ICD-10: E11.65 01/25/2017 Active Vitamin D deficiency, unspecified ICD-9: 268.9 ICD-10: E55.9 09/20/2017 Active Type 2 diabetes mellitus without complications ICD-9: 250.00 ICD-10: E11.9 05/26/2015 Active Encounter for general adult medical examination with abnormal findings ICD-9: V70.0 ICD-10: Z00.01 01/27/2017 Active Essential (primary) hypertension ICD-9: 401.9 ICD-10: [...] Fill Instructions amlodipine 5 mg tablet RxNorm: 628822 TAKE ONE TABLET BY MOUTH DAILY 11/28/2017 05/26/2018 Active atenolol 50 mg tablet RxNorm: 391839 TAKE ONE TABLET BY MOUTH DAILY 11/14/2017 10/28/2020 Active atenolol 50 mg tablet RxNorm: 752347 TAKE ONE TABLET BY MOUTH DAILY 11/14/2017 11/13/2017 Inactive amiodarone 200 mg tablet RxNorm: 800643 TAKE ONE TABLET BY MOUTH DAILY 10/10/2017 04/07/2018 Active Vitamin D2 50,000 unit capsule RxNorm: 448238 1 Capsule(s) PO QW x 12 weeks and 2000 units daily 09/27/2017 12/25/2017 Active Take with daily 2,000 unit capsule doxycycline hyclate 100 mg tablet RxNorm: 074159 1 Tablet(s) PO BID 09/27/2017 10/03/2017 Inactive Take probiotic BID with ABT doxycycline hyclate 100 mg tablet RxNorm: 989190 1 Tablet(s) PO BID 09/27/2017 09/26/2017 Inactive Take probiotic BID with ABT atenolol 50 mg tablet RxNorm: 120851 TAKE ONE TABLET BY MOUTH DAILY 08/08/2017 11/13/2017 Inactive tamsulosin 0.4 mg capsule RxNorm: 263024 TAKE ONE CAPSULE BY MOUTH AT BEDTIME 05/09/2017 05/03/2018 Active amlodipine 5 mg tablet RxNorm: 191013 1 Tablet(s) PO daily 07/201708/11/2017 Inactive d/c 10mg RX -sent electronically in error amlodipine 10 mg tablet RxNorm: 633489 1 Tablet(s) PO daily 07/201703/14/2017 Inactive d/c 10mg RX atenolol 50 mg tablet RxNorm: 209171 1.5 Tablet(s) PO daily TAKE ONE TABLET BY MOUTH DAILY 02/15/2017 08/07/2017 Inactive atenolol 50 mg tablet RxNorm: 022073 TAKE ONE TABLET BY MOUTH DAILY 02/08/2017 02/14/2017 Inactive hydralazine 25 mg tablet RxNorm: 671308 1 Tablet(s) PO TID 05/24/2017 Inactive amlodipine 5 mg tablet RxNorm: 935729 1 Tablet(s) PO daily 03/14/2017 Inactive d/c 10mg RX albuterol sulfate 2.5 mg/3 mL (0.083 %) solution for nebulization RxNorm: 342501 3 Milliliter(s) INH QID 01/19/2017 Inactive DX: J44.9 albuterol sulfate 2.5 mg/3 mL (0.083 %) solution for nebulization RxNorm: 133632 3 Milliliter(s) INH QID 01/19/2017 Inactive DX: J44.9 amlodipine 10 mg tablet RxNorm: 369969 1 Tablet(s) PO daily 05/201701/24/2017 Inactive amiodarone 200 mg tablet RxNorm: 548060 TAKE ONE TABLET BY MOUTH DAILY 2017 10/06/2017 Inactive enalapril maleate 5 mg tablet RxNorm: 222777 1/2 Tablet(s) PO BID 10/12/2016 No Stop Date Active glimepiride 4 mg tablet RxNorm: 901179 TAKE ONE TABLET BY MOUTH DAILY 10/11/2016 01/24/2017 Inactive Vitamin D2 50,000 unit capsule RxNorm: 881882 1 Capsule(s) PO QW x 4 months 08/06/2016 09/19/2017 Inactive Vitamin D2 50,000 unit capsule RxNorm: 283079 1 Capsule(s) PO QW x 4 months 08/06/2016 08/05/2016 Inactive Microlet Lancet RxNorm : TEST ONCE DAILY 05/18/2016 11/13/2016 Inactive tamsulosin 0.4 mg capsule RxNorm: 388962 1 Tablet(s) PO QHS TAKE ONE CAPSULE BY MOUTH AT BEDTIME 05/18/2016 02/11/2017 Inactive Digox 125 mcg tablet RxNorm: 2570953 TAKE ONE TABLET BY MOUTH DAILY 05/04/2016 08/03/2016 Inactive Digox 125 mcg tablet RxNorm: 3442352 1 Tablet(s) PO daily TAKE ONE TABLET BY MOUTH DAILY 05/04/2016 08/03/2016 Inactive WANTS 90 DAY SUPPLY Microlet Lancet RxNorm : TEST ONCE DAILY 04/28/2016 10/24/2016 Inactive atenolol 50 mg-chlorthalidone 25 mg tablet RxNorm: 850816 TAKE ONE TABLET BY MOUTH DAILY 03/22/2016 06/06/2016 Inactive glimepiride 4 mg tablet RxNorm: 954154 TAKE ONE TABLET BY MOUTH DAILY 12/29/2015 08/24/2016 Inactive amiodarone 200 mg tablet RxNorm: 595049 1 Tablet(s) PO daily 12/15/2016 Inactive tamsulosin 0.4 mg capsule RxNorm: 977593 TAKE ONE CAPSULE BY MOUTH AT BEDTIME 12/08/2015 05/18/2016 Inactive Digox 125 mcg tablet RxNorm: 7550957 TAKE ONE TABLET BY MOUTH DAILY 10/20/2015 10/19/2015 Inactive WANTS 90 DAY SUPPLY Digox 125 mcg tablet RxNorm: 4759106 Tablet(s) TAKE ONE TABLET BY MOUTH DAILY 10/20/2015 04/16/2016 Inactive WANTS 90 DAY SUPPLY glimepiride 4 mg tablet RxNorm: 346257 1 Tablet(s) PO daily 03/27/2016 Inactive enalapril maleate 5 mg tablet RxNorm: 402058 1 Tablet(s) PO BID 09/30/2015 09/23/2016 Inactive tamsulosin ER 0.4 mg capsule,extended release 24 hr RxNorm: 470859 Capsule(s) TAKE ONE CAPSULE BY MOUTH AT BEDTIME 09/30/2015 12/07/2015 Inactive atenolol 50 mg-chlorthalidone 25 mg tablet RxNorm: 919995 TAKE ONE TABLET BY MOUTH DAILY 09/08/2015 03/05/2016 Inactive glimepiride 4 mg tablet RxNorm: 798870 1 Tablet(s) PO daily 09/29/2015 Inactive tamsulosin ER 0.4 mg capsule,extended release 24 hr RxNorm: 991031 TAKE ONE CAPSULE BY MOUTH AT BEDTIME 06/16/2015 Inactive atenolol 50 mg-chlorthalidone 25 mg tablet RxNorm: 912331 1 Tablet(s) PO daily 06/16/2015 09/07/2015 Inactive Digox 125 mcg tablet RxNorm: 7793491 1 Tablet(s) PO daily 05/3009/26/2015 Inactive tamsulosin ER 0.4 mg capsule,extended release 24 hr RxNorm: 573144 1 Capsule(s) PO QHS 05/06/2015 05/05/2015 Inactive tamsulosin ER 0.4 mg capsule,extended release 24 hr RxNorm: 150973 1 Capsule(s) PO QHS 05/06/2015 06/04/2015 Inactive Microlet Lancet RxNorm : Miscellaneous test once daily 201402/15/2016 Inactive atorvastatin 40 mg tablet RxNorm: 795662 1 Tablet(s) PO QHS No Start Date Active Vitamin C 500 mg capsule,extended release RxNorm: 213858 1 Capsule(s) PO daily No Start Date Active Vitamin B-12 1,000 mcg tablet RxNorm: 935035 1 Tablet(s) PO daily No Start Date Active Ocuvite Adult 50+ oral RxNorm: oral No Start Date Active Vitamin D2 400 unit capsule RxNorm: 793704 1 Capsule(s) PO daily No Start Date Active Vitamin B-1 250 mg tablet RxNorm: 451306 1 Tablet(s) PO daily No Start Date Active niacin 500 mg capsule RxNorm: 394965 1 Capsule(s) PO daily No Start Date Active fenofibrate 160 mg tablet RxNorm: 174688 1 Tablet(s) PO daily No Start Date Active aspirin 325 mg tablet RxNorm: 587943 1 Tablet(s) PO daily No Start Date Active warfarin 5 mg tablet RxNorm: 020922 1 Tablet(s) PO daily No Start Date 06/06/2016 Inactive atenolol 50 mg-chlorthalidone 25 mg tablet RxNorm: 373259 1 Tablet(s) PO daily No Start Date 06/15/2015 Inactive Digox 250 mcg tablet RxNorm: 3062854 1 Tablet(s) PO daily No Start Date 05/29/2015 Inactive atenolol 50 mg tablet RxNorm: 518320 1 Tablet(s) PO daily No Start Date 02/07/2017 Inactive Microlet Lancet RxNorm : miscellaneous No Start Date 04/21/2015 Inactive amlodipine 5 mg tablet RxNorm: 181243 1 Tablet(s) PO daily No Start Date 2017 Inactive Xarelto 15 mg tablet RxNorm: 9870851 1 Tablet(s) PO QPM No Start Date 2017 Inactive aspirin 81 mg capsule,delayed release RxNorm: 312496 1 Capsule(s) PO daily No Start Date 2017 Inactive glimepiride 4 mg tablet RxNorm: 649597 1 Tablet(s) PO daily No Start Date 08/31/2015 Inactive amiodarone 200 mg tablet RxNorm: 565731 1 Tablet(s) PO daily No Start Date 12/21/2015 Inactive enalapril maleate 5 mg tablet RxNorm: 443634 1 Tablet(s) PO daily No Start Date 09/29/2015 Inactive Medication Administered No Medication Administered data Immunizations Vaccine Codes Date Status Zoster CVX: 121 09/07/2016 completed Influenza CVX: 141 08/16/2016 completed Influenza CVX: 141 08/08/2015 completed Influenza CVX: 141 08/07/2014 completed Assessments Condition Codes Effective Dates Anemia in chronic kidney disease ICD-10: D63.1 ICD-9: 285.21 09/20/2017 Chronic kidney disease, stage 4 (severe) ICD-10: N18.4 ICD-9: 585.4 09/20/2017 Vitamin D deficiency, unspecified ICD-10: E55.9 ICD-9: 268.9 09/20/2017 Rash and other nonspecific skin eruption ICD-10: R21 ICD-9: 782.1 09/20/2017 Type 2 diabetes mellitus with hyperglycemia ICD-10: E11.65 ICD-9: 250.00 09/20/2017 Chronic atrial fibrillation ICD-10: I48.2 ICD-9: 427.31 09/20/2017 Essential (primary) hypertension ICD-10: I10 ICD-9: 401.1 09/20/2017 Type 2 diabetes mellitus without complications ICD-10: E11.9 ICD-9: 250.00 05/17/2017 Encounter for general adult medical examination with abnormal findings ICD-10: Z00.01 ICD-9: V70.0 01/27/2017 Essential (primary) hypertension ICD-10: I10 ICD-9: 401.9 01/25/2017 Unilateral inguinal hernia, without obstruction or gangrene, recurrent ICD-10: K40.91 ICD-9: 550.91 08/04/2016 Fracture of other parts of pelvis, subsequent encounter for fracture with delayed healing ICD-10: S32.89XG ICD-9: V54.19 08/04/2016 Dysuria ICD-10: R30.0 ICD-9: 788.1 08/04/2016 Impacted cerumen, right ear ICD-10: H61.21 ICD-9: 389.8 09/30/2015 Type 1 diabetes mellitus without complications ICD-10: E10.9 ICD-9: 250.00 09/30/2015 ESSENTIAL HYPERTENSION ICD-9: 401.9 07/01 DIABETES TYPE II ICD-9: 250.00 2014 ATRIAL FIBRILLATION ICD-9: 427.31 2014 Elevated digoxin level ICD-9: 796.0 07/01 Reason For Visit Reason For Visit Effective Dates Notes diabetes mellitus 09/20/2017 diabetes mellitus 05/17/2017 diabetes mellitus 03/15/2017 diabetes mellitus 02/15/2017 Annual Medicare Wellness Exam 01/27/2017 diabetes mellitus 01/25/2017 hypoglycemia hypertension 01/11/2017 hypertension 10/12/2016 hip pain 08/04/2016 Hospital Follow Up 06/07/2016 hypertension 03/30/2016 hypertension 09/30/2015 hypertension 07/01/2015 hypertension 05/27/2015 Results Observation Observation Code Item Item Code Result Date %Hba1C Ztk717 % HbA1c 18709-3 5.6 % 09/21/2017 %Hba1C Dhr537 Gluc Ave 114 mg/dL 09/21/2017 Comp Metabolic Oaf454 NA 141 mEq/L 09/20/2017 Comp Metabolic Erp041 K 4.5 mEq/L 09/20/2017 Comp Metabolic Fni410 CL 108 mEq/L 09/20/2017 Comp Metabolic Bnz323 CO2 27.0 mEq/L 09/20/2017 Comp Metabolic Doh387 ANION GAP 11 09/20/2017 Comp Metabolic Vkd846 GLUCOSE 142 mg/dL 09/20/2017 Comp Metabolic Xee744 Creat 2.7 mg/dL 09/20/2017 Comp Metabolic Ene960 eGFR 24 ml/min/1.73m2 09/20/2017 Comp Metabolic Zwt601 BUN 43 mg/dL 09/20/2017 Comp Metabolic Jpl473 B/C Ratio 15.8 Ratio 09/20/2017 Comp Metabolic Ivc369 CALCIUM 8.9 mg/dL 09/20/2017 Comp Metabolic Ngd194 ALK PHOS 66 U/L 09/20/2017 Comp Metabolic Doo056 AST(SGOT) 44 U/L 09/20/2017 Comp Metabolic Qdb233 ALT(SGPT) 26 U/L 09/20/2017 Comp Metabolic Gek765 BILI T 0.5 mg/dL 09/20/2017 Comp Metabolic Bgx375 ALBUMIN 3.3 g/dL 09/20/2017 Comp Metabolic Hjs582 TPRO 5.9 g/dL 09/20/2017 Comp Metabolic Gnf777 GLOB 2.6 g/dL 09/20/2017 Comp Metabolic Eqt682 A/G Ratio 1.3 Ratio 09/20/2017 Comp Metabolic Wft374 Osmo 295 mOsmo 09/20/2017 Vitamin D 25 Oh Mks4302 VITAMIN D, 25 HYDROXY 23.11 ng/mL Cbc With Differential Ord2 WBC 6.40 K/ul 09/20/2017 Cbc With Differential Ord2 RBC 3.34 M/ul 09/20/2017 Cbc With Differential Ord2 HGB 10.6 g/dl 09/20/2017 Cbc With Differential Ord2 Neut% 61.8 % 09/20/2017 Cbc With Differential Ord2 HCT 32.8 % 09/20/2017 Cbc With Differential Ord2 MCV 98.2 fl 09/20/2017 Cbc With Differential Ord2 Lymph% 17.3 % 09/20/2017 Cbc With Differential Ord2 MCH 31.7 pg 09/20/2017 Cbc With Differential Ord2 [place]% 14.5 % 09/20/2017 Cbc With Differential Ord2 MCHC 32.3 pg 09/20/2017 Cbc With Differential Ord2 Eos% 5.5 % 09/20/2017 Cbc With Differential Ord2 PLT 235 K/ul 09/20/2017 Cbc With Differential Ord2 Baso% 0.9 % 09/20/2017 Cbc With Differential Ord2 RDW 14.9 % 09/20/2017 Cbc With Differential Ord2 Neut ABS# 3.95 K/ul 09/20/2017 Cbc With Differential Ord2 Lymph ABS# 1.11 K/ul 09/20/2017 Cbc With Differential Ord2 [place] ABS# 0.9 K/ul 09/20/2017 Cbc With Differential Ord2 Eos ABS# 0.4 K/ul 09/20/2017 Cbc With Differential Ord2 Baso ABS# 0.1 K/ul 09/20/2017 %Hba1C Dtq154 % HbA1c 22099-0 5.6 % 05/18/2017 %Hba1C Nww896 Gluc Ave 114 mg/dL 05/18/2017 Cbc With Differential Ord2 WBC 4.55 K/ul 05/17/2017 Cbc With Differential Ord2 RBC 3.47 M/ul 05/17/2017 Cbc With Differential Ord2 HGB 10.7 g/dl 05/17/2017 Cbc With Differential Ord2 HCT 33.5 % 05/17/2017 Cbc With Differential Ord2 Neut% 54.5 % 05/17/2017 Cbc With Differential Ord2 Lymph% 23.5 % 05/17/2017 Cbc With Differential Ord2 MCV 96.5 fl 05/17/2017 Cbc With Differential Ord2 MCH 30.8 pg 05/17/2017 Cbc With Differential Ord2 [place]% 15.4 % 05/17/2017 Cbc With Differential Ord2 MCHC 31.9 pg 05/17/2017 Cbc With Differential Ord2 Eos% 5.9 % 05/17/2017 Cbc With Differential Ord2 Baso% 0.7 % 05/17/2017 Cbc With Differential Ord2 PLT 106 K/ul 05/17/2017 Cbc With Differential Ord2 RDW 14.8 % 05/17/2017 Cbc With Differential Ord2 Neut ABS# 2.48 K/ul 05/17/2017 Cbc With Differential Ord2 Lymph ABS# 1.07 K/ul 05/17/2017 Cbc With Differential Ord2 [place] ABS# 0.7 K/ul 05/17/2017 Cbc With Differential Ord2 Eos ABS# 0.3 K/ul 05/17/2017 Cbc With Differential Ord2 Baso ABS# 0.0 K/ul 05/17/2017 Comp Metabolic Bhv469 NA 140 mEq/L 05/17/2017 Comp Metabolic Sby459 K 4.7 mEq/L 05/17/2017 Comp Metabolic Hax204 CL 112 mEq/L 05/17/2017 Comp Metabolic Myn735 CO2 23.0 mEq/L 05/17/2017 Comp Metabolic Uud970 ANION GAP 10 05/17/2017 Comp Metabolic Fjd175 GLUCOSE 148 mg/dL 05/17/2017 Comp Metabolic Sru232 Creat 2.7 mg/dL 05/17/2017 Comp Metabolic Kam935 eGFR 24 ml/min/1.73m2 05/17/2017 Comp Metabolic Rkm527 BUN 32 mg/dL 05/17/2017 Comp Metabolic Uot487 B/C Ratio 11.7 Ratio 05/17/2017 Comp Metabolic Bba328 CALCIUM 8.4 mg/dL 05/17/2017 Comp Metabolic Qhl704 ALK PHOS 61 U/L 05/17/2017 Comp Metabolic Flp708 AST(SGOT) 25 U/L 05/17/2017 Comp Metabolic Eyw922 ALT(SGPT) 15 U/L 05/17/2017 Comp Metabolic Fgh141 BILI T 0.4 mg/dL 05/17/2017 Comp Metabolic Aqp339 ALBUMIN 3.2 g/dL 05/17/2017 Comp Metabolic Ies821 TPRO 5.4 g/dL 05/17/2017 Comp Metabolic Mvg555 GLOB 2.2 g/dL 05/17/2017 Comp Metabolic Rvj196 A/G Ratio 1.4 Ratio 05/17/2017 Comp Metabolic Ivs684 Osmo 289 mOsmo 05/17/2017 %Hba1C Vsf220 % HbA1c 05815-9 5.5 % 01/26/2017 %Hba1C Pqk998 Gluc Ave 111 mg/dL 01/26/2017 Cbc With Differential Ord2 WBC 11.57 K/ul 01/26/2017 Cbc With Differential Ord2 RBC 3.81 M/ul 01/26/2017 Cbc With Differential Ord2 HGB 11.5 g/dl 01/26/2017 Cbc With Differential Ord2 Neut% 77.2 % 01/26/2017 Cbc With Differential Ord2 HCT 35.7 % 01/26/2017 Cbc With Differential Ord2 Lymph% 7.0 % 01/26/2017 Cbc With Differential Ord2 MCV 93.7 fl 01/26/2017 Cbc With Differential Ord2 [place]% 14.3 % 01/26/2017 Cbc With Differential Ord2 MCH 30.2 pg 01/26/2017 Cbc With Differential Ord2 Eos% 1.0 % 01/26/2017 Cbc With Differential Ord2 MCHC 32.2 pg 01/26/2017 Cbc With Differential Ord2 PLT 225 K/ul 01/26/2017 Cbc With Differential Ord2 Baso% 0.5 % 01/26/2017 Cbc With Differential Ord2 RDW 16.2 % 01/26/2017 Cbc With Differential Ord2 Neut ABS# 8.94 K/ul 01/26/2017 Cbc With Differential Ord2 Lymph ABS# 0.81 K/ul 01/26/2017 Cbc With Differential Ord2 [place] ABS# 1.7 K/ul 01/26/2017 Cbc With Differential Ord2 Eos ABS# 0.1 K/ul 01/26/2017 Cbc With Differential Ord2 Baso ABS# 0.1 K/ul 01/26/2017 Comp Metabolic Nyf966 NA 140 mEq/L 01/26/2017 Comp Metabolic Mfg555 K 5.0 mEq/L 01/26/2017 Comp Metabolic Ilz985 CL 111 mEq/L 01/26/2017 Comp Metabolic Haf607 CO2 21.0 mEq/L 01/26/2017 Comp Metabolic Ghz015 ANION GAP 13 01/26/2017 Comp Metabolic Abw308 GLUCOSE 123 mg/dL 01/26/2017 Comp Metabolic Jch015 Creat 2.9 mg/dL 01/26/2017 Comp Metabolic Zqu894 eGFR 23 ml/min/1.73m2 01/26/2017 Comp Metabolic Pim708 BUN 31 mg/dL 01/26/2017 Comp Metabolic Fbv449 B/C Ratio 10.8 Ratio 01/26/2017 Comp Metabolic Hsk957 CALCIUM 8.3 mg/dL 01/26/2017 Comp Metabolic Zkw424 ALK PHOS 59 U/L 01/26/2017 Comp Metabolic Ran168 AST(SGOT) 28 U/L 01/26/2017 Comp Metabolic Ieu725 ALT(SGPT) 21 U/L 01/26/2017 Comp Metabolic Rnr239 BILI T 0.9 mg/dL 01/26/2017 Comp Metabolic Vuy825 ALBUMIN 2.6 g/dL 01/26/2017 Comp Metabolic Jqk923 TPRO 5.3 g/dL 01/26/2017 Comp Metabolic Wsj020 GLOB 2.7 g/dL 01/26/2017 Comp Metabolic Ncr676 A/G Ratio 1.0 Ratio 01/26/2017 Comp Metabolic Xgg737 Osmo 287 mOsmo 01/26/2017 Manual Differential Ord52 D-Neutr 84 % 01/26/2017 Manual Differential Ord52 D-Bands 1 % 01/26/2017 Manual Differential Ord52 D-Lymph 10 % 01/26/2017 Manual Differential Ord52 D-[place] 4 % 01/26/2017 Manual Differential Ord52 D-Eos 1 % 01/26/2017 %Hba1C Ndk141 % HbA1c 00626-2 6.2 % 08/04/2016 %Hba1C Afd971 Gluc Ave 131 mg/dL 08/04/2016 Comp Metabolic Tua239 NA 136 mEq/L 08/04/2016 Comp Metabolic Beb865 K 4.4 mEq/L 08/04/2016 Comp Metabolic Fbw217 CL 105 mEq/L 08/04/2016 Comp Metabolic Cps651 CO2 25.0 mEq/L 08/04/2016 Comp Metabolic Cfn084 ANION GAP 10 08/04/2016 Comp Metabolic Prt842 GLUCOSE 190 mg/dL 08/04/2016 Comp Metabolic Vyt074 Creat 2.4 mg/dL 08/04/2016 Comp Metabolic Gwl843 eGFR 28 ml/min/1.73m2 08/04/2016 Comp Metabolic Ots245 BUN 24 mg/dL 08/04/2016 Comp Metabolic Dwq636 B/C Ratio 10.0 Ratio 08/04/2016 Comp Metabolic Rfw911 CALCIUM 8.8 mg/dL 08/04/2016 Comp Metabolic Cdl981 ALK PHOS 34 U/L 08/04/2016 Comp Metabolic Tdf980 AST(SGOT) 23 U/L 08/04/2016 Comp Metabolic Qwy751 ALT(SGPT) 18 U/L 08/04/2016 Comp Metabolic Jzm257 BILI T 0.5 mg/dL 08/04/2016 Comp Metabolic Nue773 ALBUMIN 3.6 g/dL 08/04/2016 Comp Metabolic Ojw826 TPRO 5.9 g/dL 08/04/2016 Comp Metabolic Ysw534 GLOB 2.3 g/dL 08/04/2016 Comp Metabolic Sss176 A/G Ratio 1.6 Ratio 08/04/2016 Comp Metabolic Oja425 Osmo 281 mOsmo 08/04/2016 Cbc With Differential Ord2 WBC 4.02 K/ul 08/04/2016 Cbc With Differential Ord2 RBC 3.17 M/ul 08/04/2016 Cbc With Differential Ord2 HGB 10.1 g/dl 08/04/2016 Cbc With Differential Ord2 HCT 31.4 % 08/04/2016 Cbc With Differential Ord2 Neut% 57.5 % 08/04/2016 Cbc With Differential Ord2 Lymph% 22.9 % 08/04/2016 Cbc With Differential Ord2 MCV 99.1 fl 08/04/2016 Cbc With Differential Ord2 MCH 31.9 pg 08/04/2016 Cbc With Differential Ord2 [place]% 15.4 % 08/04/2016 Cbc With Differential Ord2 [...] 0.92 K/ul 08/04/2016 Cbc With Differential Ord2 [place] ABS# 0.6 K/ul 08/04/2016 Cbc With Differential Ord2 Eos ABS# 0.1 K/ul 08/04/2016 Cbc With Differential Ord2 Baso ABS# 0.0 K/ul 08/04/2016 Vitamin D 25 Oh Zqy5964 VITAMIN D, 25 HYDROXY 15.25 ng/mL Tsh Ord6 hTSH II 2.93 uIU/mL 08/04/2016 Digoxin Ord9 DIGOXIN 1.1 NG/ML 05/30/2015 %Hba1C Hsw654 % HbA1c 20411-0 6.9 % 05/28/2015 %Hba1C Kvr669 Gluc Ave 151 mg/dL 05/28/2015 Cbc With Differential Ord2 WBC 3.9 K/uL [...] Tsh Ord6 hTSH II 2.14 uIU/mL 05/27/2015 Comp Metabolic Gwh608 NA 135 mEq/L 05/27/2015 Comp Metabolic Lrk931 K 4.4 mEq/L 05/27/2015 Comp Metabolic Mdk896 CL 102 mEq/L 05/27/2015 Comp Metabolic Rps756 CO2 26.0 mEq/L 05/27/2015 Comp Metabolic Tpt317 ANION GAP 11 05/27/2015 Comp Metabolic Pkc477 GLUCOSE 303 mg/dL 05/27/2015 Comp Metabolic Yuw523 Creat 1.9 mg/dL 05/27/2015 Comp Metabolic Dlj722 eGFR 36 ml/min/1.73m2 05/27/2015 Comp Metabolic Qml271 BUN 30 mg/dL 05/27/2015 Comp Metabolic Wqa256 B/C Ratio 15.5 Ratio 05/27/2015 Comp Metabolic Cek109 CALCIUM 9.0 mg/dL 05/27/2015 Comp Metabolic Iii203 ALK PHOS 31 U/L 05/27/2015 Comp Metabolic Vse324 AST(SGOT) 27 U/L 05/27/2015 Comp Metabolic Jxn168 ALT(SGPT) 25 U/L 05/27/2015 Comp Metabolic Mci165 BILI T 0.6 mg/dL 05/27/2015 Comp Metabolic Gfg974 ALBUMIN 3.7 g/dL 05/27/2015 Comp Metabolic Tmj223 TPRO 6.1 g/dL 05/27/2015 Comp Metabolic Ban656 GLOB 2.4 g/dL 05/27/2015 Comp Metabolic Mhi169 A/G Ratio 1.5 Ratio 05/27/2015 Comp Metabolic Mha741 Osmo 288 mOsmo 05/27/2015 B12 Oqr383 B12 903.00 pg/ml 05/27/2015 Digoxin Ord9 DIGOXIN 3.0 NG/ML 05/27/2015 Review of Systems System Result Effective Dates Constitutional No chills 09/20/2017 Constitutional No diaphoresis [...] Date PPPS, SUBSEQ VISIT CPT -4: G0439 01/27/2017 URINALYSIS NONAUTO W/O SCOPE CPT-4: 49993 08/04/2016 Vital Signs Date Vital 09/20/2017 Blood Pressure 1: 132/86 Code : 8480-6 BMI: 27.7 Code : 98100-1 Heart Rate 1 : 93 bpm Height: 6' SpO2: 99% Weight: 204 lbs 05/17/2017 Blood Pressure 1: 132/66 Code : 8480-6 BMI: 27.3 Code : 36333-7 Heart Rate 1 : 83 bpm Height: 6' SpO2: 96% Weight: 201 lbs 03/15/2017 Blood Pressure 1: 164/82 Code : 8480-6 BMI: 28.6 Code : 34870-2 Heart Rate 1 : 100 bpm Height: 6' SpO2: 96% Weight: 211 lbs 02/15/2017 Blood Pressure 1: 166/90 Code : 8480-6 BMI: 28.5 Code : 72662-2 Heart Rate 1 : 103 bpm Height: 6' SpO2: 95% Weight: 210 lbs 01/27/2017 Blood Pressure 1: 142/76 Code : 8480-6 BMI: 29.6 Code : 91320-3 Heart Rate 1 : 74 bpm Height: 6' SpO2: 97% Waist Measure (cm): 102 cm Weight: 218 lbs 01/25/2017 Blood Pressure 1: 144/78 Code : 8480-6 BMI: 29.6 Code : 28539-8 Heart Rate 1 : 74 bpm Height: 6' SpO2: 96% Weight: 218 lbs 01/11/2017 Blood Pressure 1: 178/80 Code : 8480-6 Blood Pressure 1: 200/92 Code: 8480-6 Blood Pressure 1: 192/90 Code: 8480-6 BMI: 28.8 Code: 71868-0 Heart Rate 1: 68 bpm Height: 6' SpO2: 99% Weight: 212 lbs 10/12/2016 Blood Pressure 1: 144/70 Code : 8480-6 BMI: 28.3 Code : 99846-2 Heart Rate 1 : 65 bpm Height: 6' SpO2: 98% Weight: 209 lbs 08/04/2016 Blood Pressure 1: 148/68 Code : 8480-6 BMI: 27.8 Code : 46578-4 Heart Rate 1 : 64 bpm Height: 6' SpO2: 98% Weight: 205 lbs 06/07/2016 Blood Pressure 1: 138/60 Code : 8480-6 BMI: 28.0 Code : 93011-2 Heart Rate 1 : 67 bpm Height: 6' SpO2: 98% Weight: 206 lbs 8 oz 03/30/2016 Blood Pressure 1: 138/62 Code : 8480-6 BMI: 28.5 Code : 84407-4 Heart Rate 1 : 61 bpm Height: 6' SpO2: 94% Weight: 210 lbs 09/30/2015 Blood Pressure 1: 140/76 Code : 8480-6 BMI: 29.0 Code : 70015-4 Heart Rate 1 : 58 bpm Height: 6' SpO2: 98% Weight: 214 lbs 07/01/2015 Blood Pressure 1: 140/70 Code : 8480-6 BMI: 28.8 Code : 22765-6 Heart Rate 1 : 58 bpm Height: 6' SpO2: 98% Weight: 212 lbs 05/27/2015 Blood Pressure 1: 160/76 Code : 8480-6 BMI: 28.9 Code : 78305-6 Heart Rate 1 : 59 bpm Height: 6' SpO2: 98% Weight: 213 lbs Functional Status No Functional Status data History of Present Illness Symptom Name Status Result Effective Date Notes diabetes mellitus Quality non-insulin dependent 09/20/2017 None [...] data Encounters Encounter Performer Location Codes Date ([id number]) [id number] EST. PATIENT, LEVEL IV Diagnosis: Essential (primary) hypertension[ICD10: I10] Diagnosis: Chronic kidney disease, stage 4 (severe)[ICD10: N18.4] Diagnosis: Anemia in chronic kidney disease[ICD10: D63.1] Diagnosis: Type 2 diabetes mellitus with hyperglycemia[ICD10: E11.65] Diagnosis: Chronic atrial fibrillation[ICD10: I48.2] Diagnosis: Vitamin D deficiency, unspecified[ICD10: E55.9] Diagnosis: Rash and other nonspecific skin eruption[ICD10: R21] Magalie Larsen MD, [facility] CPT-4: 45714 09/20/2017 ([id number]) 80461 EST. PATIENT, LEVEL IV Diagnosis: Essential (primary) hypertension[ICD10: I10] Diagnosis: Type 2 diabetes mellitus without complications[ICD10: E11.9] Diagnosis: Anemia in chronic kidney disease[ICD10: D63.1] Magalie Larsen MD, [facility] CPT-4: 12664 05/17/2017 ([id number]) 79130 EST. PATIENT, LEVEL IV Diagnosis: Essential (primary) hypertension[ICD10: I10] Diagnosis: Type 2 diabetes mellitus without complications[ICD10: E11.9] Diagnosis: Chronic atrial fibrillation[ICD10: I48.2] Magalie Larsen MD, [facility] CPT-4: 45054 03/15/2017 ([id number]) 02884 EST. PATIENT, LEVEL IV Diagnosis: Essential (primary) hypertension[ICD10: I10] Diagnosis: Anemia in chronic kidney disease[ICD10: D63.1] Diagnosis: Type 2 diabetes mellitus with hyperglycemia[ICD10: E11.65] Magalie Larsen MD, [facility] CPT-4: 98860 02/15/2017 ([id number]) 85534 EST. PATIENT, LEVEL III Diagnosis: Essential (primary) hypertension[ICD10: I10] Diagnosis: Type 2 diabetes mellitus with hyperglycemia[ICD10: E11.65] Magalie Larsen MD [facility] CPT-4: 03240 01/25/2017 ([id number]) 42632 EST. PATIENT, LEVEL IV Diagnosis: Essential (primary) hypertension[ICD10: I10] Diagnosis: Type 2 diabetes mellitus without complications[ICD10: E11.9] Diagnosis: Chronic atrial fibrillation[ICD10: I48.2] Rosalinda Larsen MD, [facility] CPT-4: 02813 01/11/2017 ([id number]) 78470 EST. PATIENT, LEVEL IV Diagnosis: Type 2 diabetes mellitus without complications[ICD10: E11.9] Diagnosis: Essential (primary) hypertension[ICD10: I10] Diagnosis: Chronic atrial fibrillation[ICD10: I48.2] Rosalinda Larsen MD, [facility] CPT-4: 80383 10/12/2016 ([id number]) 43708 EST. PATIENT, LEVEL IV Diagnosis: Fracture of other parts of pelvis, subsequent encounter for fracture with delayed healing[ICD10: S32.89XG] Diagnosis: Type 2 diabetes mellitus without complications[ICD10: E11.9] Diagnosis: Essential (primary) hypertension[ICD10: I10] Diagnosis: Chronic atrial fibrillation[ICD10: I48.2] Diagnosis: Unilateral inguinal hernia, without obstruction or gangrene, recurrent[ICD10: K40.91] Diagnosis: Dysuria[ICD10: R30.0] Rosalinda Larsen MD, [facility] CPT-4: 93961 08/04/2016 ([id number]) 17757 EST. PATIENT, LEVEL IV Diagnosis: Type 2 diabetes mellitus without complications[ICD10: E11.9] Diagnosis: Essential (primary) hypertension[ICD10: I10] Diagnosis: Chronic atrial fibrillation[ICD10: I48.2] Rosalinda Larsen MD [facility] CPT-4: 66804 06/07/2016 ([id number]) 80071 EST. PATIENT, LEVEL IV Diagnosis: Essential (primary) hypertension[ICD10: I10] Diagnosis: Chronic atrial fibrillation[ICD10: I48.2] Diagnosis: Type 2 diabetes mellitus without complications[ICD10: E11.9] Rosalinda Larsen MD [facility] CPT-4: 35298 03/30/2016 ([id number]) 91638 EST. PATIENT, LEVEL IV Diagnosis: Essential (primary) hypertension[ICD10: I10] Diagnosis: Type 1 diabetes mellitus without complications[ICD10: E10.9] Diagnosis: Impacted cerumen, right ear[ICD10: H61.21] Rosalinda Larsen MD, [facility] CPT-4: 76328 09/30/2015 ([id number]) 08554 EST. PATIENT, LEVEL IV Diagnosis: ESSENTIAL HYPERTENSION[ICD9: 401.9] Diagnosis: ATRIAL FIBRILLATION[ICD9: 427.31] Diagnosis: DIABETES TYPE II[ICD9: 250.00] Diagnosis: Elevated digoxin level[ICD9: 796.0] Rosalinda Larsen MD, [facility] CPT-4: 11565 07/01/2015 ([id number]) OFFICE VISIT, NEW - LEVEL 4 Diagnosis: ESSENTIAL HYPERTENSION[ICD9: 401.9] Diagnosis: ATRIAL FIBRILLATION[ICD9: 427.31] Diagnosis: DIABETES TYPE II[ICD9: 250.00] Rosalinda Larsen MD, [facility] CPT- 4: 68095 05/27/2015 Plan of Care Planned Activity Notes Codes Status Date Visit Plan: Hypertension - well controlled - [...] today 09/20/2017 Appointment: Magalie Andre WPtel: [phone] [phone] (30 min) [facility] 09/20/2017 Patient Education: Patient Medication Summary Completed [...] disease-check labs 05/17/2017 Appointment: Mag[phone] ([facility] min[facility] Complex 05/17/2017 Patient Education: Patient [...] uncontrolled. 03/15/2017 Appointment: [phone] (30 min) Complex 03/15/2017 Patient Education: Patient [...] chronic renal disease-recheck labs in 1 months-see paint crew supervisor in 02/15/2017 Appointment: [facility] An[facility]de [phone] (30 min) Complex 02/15/2017 Patient Education: Patient [...] 2-3 weeks 01/25/2017 Appointment: Magalie Andre WPtel: [phone] (30 min) Complex 01/25/2017 Patient Education: Patient Medication Summary Completed 01/25/2017 Appointment: Magalie Andre WPtel: [address] [place], [place] [phone] (30 min) Complex 01/24/2017 Appointment: Rosalinda Larsen WPtel: [address] [place], [place] [address] (15 min) Moderate 01/20/2017 Visit Plan: Hypertension [...] current medication. 01/11/2017 Appointment: Rosalinda Larsen WPtel: [phone] [facility] (15 min) Moderate 01/11/2017 Patient Education: Patient [...] becoming uncontrolled. 10/12/2016 App[facility]ment: [phone] ([facility] min) Moderate 10/12/2016 Patient Education: Patient [...] would prefer not to have surgery at [facility] if possible. DM - controlled per his [...] healing time. 08/04/2016 Appointment: Rosalinda Larsen WPtel: [phone] [facility] (15 min) Moderate 08/04/2016 Patient Education: Patient Medication Summary Completed 08/04/2016 Care Plan: Referral Order SNOMED-CT : [id number] Pending 08/04/2016 Appointment: Rosalinda Larsen WPtel: [phone] [facility] (15 min) Moderate 08/03/2016 Visit Plan: Hypertension [...] controlled. 06/07/2016 Appointment: Rosalinda Larsen WPtel: [phone] [facility] [place] (15 min) Moderate 06/07/2016 Patient Education: Patient [...] With Differential Pending 03/30/2016 Care Plan: %Hba1C LOINC : 22558-1 Pending 03/30/2016 Visit Plan: Hypertension - well [...] on tamsulosin.. 09/30/2015 Appointment: [phone] ([facility] min) Moderate 09/30/2015 Patient Education: Patient [...] becoming uncontrolled. 07/01/2015 Appointment: Rosalinda Larsen WPtel[facility] (15 min) Moderate 07/01/2015 Patient Education: Patient [...] becoming uncontrolled. 05/27/2015 Appointment: Rosalinda Larsen WPtel: [facility] [place] New Patient 05/27/2015 Patient Education: Patient Medication Summary Completed 05/27/2015 Patient Education: Hypertension Completed 05/27/2015 Referral: External, Ordering Provider Referral Appointment Requested Instructions Comment if the diarrhea does not improve - [...] chronic renal disease-recheck labs in 1 months-see paint crew supervisor in March . Hypertension - well controlled [...] would prefer not to have surgery at [facility] if possible. DM - controlled per his [...]
--- OUTSIDE RECORDS SUMMARY | 2018-09-13 07:06 | XMS REPORT | Continuity of Care Document ---
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 (moles/volume) 138 mmol/L 135-145 Serum or plasma potassium measurement (moles/volume) 5.8 mmol/L 3.6-5.0 Serum or plasma chloride measurement (moles/volume) 111 mmol/L 98-107 Carbon dioxide 18 mmol/L 21-32 Serum or plasma anion gap determination (moles/volume) 9 mmol/L 5-14 Serum or plasma urea nitrogen measurement (mass/volume) 50 mg/dL 7-18 Serum or plasma creatinine measurement (mass/volume) 3.32 mg/dL 0.60-1.30 Serum or plasma urea nitrogen/creatinine mass ratio 15 NRG Serum or plasma creatinine measurement with calculation of estimated glomerular filtration rate 18 NRG Serum or plasma glucose measurement (mass/volume) 123 mg/dL 70-105 Serum or plasma calcium measurement (mass/volume) 9.4 mg/dL 8.5-10.1 Whole blood basic metabolic panel - 05/18/18 21:58 Serum or plasma sodium measurement (moles/volume) 138 mmol/L 135-145 Serum or plasma potassium measurement (moles/volume) 4.6 mmol/L 3.6-5.0 Serum or plasma chloride measurement (moles/volume) 112 mmol/L 98-107 Carbon dioxide 15 mmol/L 21-32 Serum or plasma anion gap determination (moles/volume) 11 mmol/L 5-14 Serum or plasma urea nitrogen measurement (mass/volume) 52 mg/dL 7-18 Serum or plasma creatinine measurement (mass/volume) 3.22 mg/dL 0.60-1.30 Serum or plasma urea nitrogen/creatinine mass ratio 16 NRG Serum or plasma creatinine measurement with calculation of estimated glomerular filtration rate 19 NRG Serum or plasma glucose measurement (mass/volume) 121 mg/dL 70-105 Serum or plasma calcium measurement (mass/volume) 9.1 mg/dL 8.5-10.1 Complete blood count (CBC) with automated white blood cell (WBC) differential - 09/13/18 04:16 Blood leukocytes automated count (number/volume) 13.6 10*3/uL 4.3-11.0 Blood erythrocytes automated count (number/volume) 3.35 10*6/uL 4.35-5.85 Venous blood hemoglobin measurement (mass/volume) 10.4 g/dL 13.3-17.7 Blood hematocrit (volume fraction) 33 % 40-54 Automated erythrocyte mean corpuscular volume 97 [foz_us] 80-99 Automated erythrocyte mean corpuscular hemoglobin (mass per erythrocyte) 31 pg 25-34 Automated erythrocyte mean corpuscular hemoglobin concentration measurement ( mass/volume) 32 g/dL 32-36 Automated erythrocyte distribution width ratio 15.4 % 10.0-14.5 Automated blood platelet count (count/volume) 173 10*3/uL 130-400 Automated blood platelet mean volume measurement 9.6 [foz_us] 7.4-10.4 Automated blood neutrophils/100 leukocytes 88 % 42-75 Automated blood lymphocytes/100 leukocytes 4 % 12-44 Blood monocytes/100 leukocytes 8 % 0-12 Automated blood eosinophils/100 leukocytes 1 % 0-10 Automated blood basophils/100 leukocytes 0 % 0-10 Blood neutrophils automated count (number/volume) 11.9 10*3 1.8-7.8 Blood lymphocytes automated count (number/volume) 0.6 10*3 1.0-4.0 Blood monocytes automated count (number/volume) 1.0 10*3 0.0-1.0 Automated eosinophil count 0.1 10*3/uL 0.0-0.3 Automated blood basophil count (count/volume) 0.0 10*3/uL 0.0-0.1 PT panel in platelet poor plasma by coagulation assay - 09/13/18 04:16 Prothrombin time (PT) in platelet poor plasma by coagulation assay 14.3 s 12.2-14.7 INR in platelet poor plasma or blood by coagulation assay 1.1 0.8-1.4 Activated partial thromboplastin time (aPTT) in platelet poor plasma bycoagulation assay - 09/13/18 04:16 Activated partial thromboplastin time (aPTT) in platelet poor plasma bycoagulation assay 30 s 24-35 Blood lactic acid measurement (moles/volume) - 09/13/18 04:16 Blood lactic acid measurement (moles/volume) 1.54 mmol/L 0.50-2.00 Comprehensive metabolic panel - 09/13/18 04:16 Serum or plasma sodium measurement (moles/volume) 139 mmol/L 135-145 Serum or plasma potassium measurement (moles/volume) 5.3 mmol/L 3.6-5.0 Serum or plasma chloride measurement (moles/volume) 113 mmol/L 98-107 Carbon dioxide 15 mmol/L 21-32 Serum or plasma anion gap determination (moles/volume) 11 mmol/L 5-14 Serum or plasma urea nitrogen measurement (mass/volume) 62 mg/dL 7-18 Serum or plasma creatinine measurement (mass/volume) 3.53 mg/dL 0.60-1.30 Serum or plasma urea nitrogen/creatinine mass ratio 18 NRG Serum or plasma creatinine measurement with calculation of estimated glomerular filtration rate 17 NRG Serum or plasma glucose measurement (mass/volume) 120 mg/dL 70-105 Serum or plasma calcium measurement (mass/volume) 9.3 mg/dL 8.5-10.1 Serum or plasma total bilirubin measurement (mass/volume) 0.6 mg/dL 0.1-1.0 Serum or plasma alkaline phosphatase measurement (enzymatic activity/volume) 64 U/L 40-136 Serum or plasma aspartate aminotransferase measurement (enzymatic activity/ volume) 40 U/L 5-34 Serum or plasma alanine aminotransferase measurement (enzymatic activity/volume ) 24 U/L 0-55 Serum or plasma protein measurement (mass/volume) 6.5 g/dL 6.4-8.2 Serum or plasma albumin measurement (mass/volume) 3.6 g/dL 3.2-4.5 CALCIUM CORRECTED 9.6 mg/dL 8.5-10.1 Magnesium - 09/13/18 04:16 Magnesium 1.7 mg/dL 1.8-2.4 Blood manual differential performed detection - 09/13/18 04:16 Blood monocytes/100 leukocytes 9 % NRG Manual blood segmented neutrophils/100 leukocytes 79 % NRG Blood band neutrophils/100 leukocytes 9 % NRG Manual blood lymphocytes/100 leukocytes 3 % NRG Blood erythrocyte morphology finding identification NORMAL NRG Serum or plasma lithium measurement (moles/volume) - 09/13/18 04:16 BNP level 592.8 pg/mL <100.0 Serum or plasma troponin i.cardiac measurement (mass/volume) - 09/13/18 04:16 Serum or plasma troponin i.cardiac measurement (mass/volume) < ng/ mL <0.30 Serum or plasma thyrotropin measurement by detection limit <=0.05 miu/l (units/ volume) - 09/13/18 04:16 Serum or plasma thyrotropin measurement by detection limit <=0.05 miu/l (units/ volume) 2.33 u[iU]/mL 0.35-4.94 Complete urinalysis with reflex to culture - 09/13/18 05:30 Urine color determination YELLOW NRG Urine clarity determination SLIGHTLY CLOUDY NRG Urine pH measurement by test strip 5 5-9 Specific gravity of urine by test strip 1.020 1.016- 1.022 Urine protein assay by test strip, semi-quantitative 3+ NEGATIVE Urine glucose detection by automated test strip NEGATIVE NEGATIVE Erythrocytes detection in urine sediment by light microscopy NEGATIVE NEGATIVE Urine ketones detection by automated test strip NEGATIVE NEGATIVE Urine nitrite detection by test strip NEGATIVE NEGATIVE Urine total bilirubin detection by test strip NEGATIVE NEGATIVE Urine urobilinogen measurement by automated test strip (mass/volume) NORMAL NORMAL Urine leukocyte esterase detection by dipstick NEGATIVE NEGATIVE Automated urine sediment erythrocyte count by microscopy (number/high power field) NONE NRG Automated urine sediment leukocyte count by microscopy (number/high power field ) NONE NRG Bacteria detection in urine sediment by light microscopy NEGATIVE NRG Squamous epithelial cells detection in urine sediment by light microscopy 2-5 NRG Crystals detection in urine sediment by light microscopy PRESENT NRG Casts detection in urine sediment by light microscopy NONE NRG Mucus detection in urine sediment by light microscopy NEGATIVE NRG Complete urinalysis with reflex to culture NO NRG Amorphous sediment detection in urine sediment by light microscopy MOD LEESA URATES NRG Encounters ACCT No. Visit Date/Time Discharge Status Pt. Type Provider Facility Loc./Unit Complaint [id number] 05/18/2018 20:47:00 05/18/2018 22:45:00 DIS Outpatient MACEY DUENAS APRN [facility] ER BUMP ON SIDE OF NECK [id number] 01/14/2017 05:30:00 01/17/2017 10:34:00 DIS Inpatient AZC GUPTA MD [facility] 4TH ALTERED MENTAL STATUS; HEAD CONTUSION X 2;HYPOGLYCE [id number] 05/28/2016 05:25:00 06/01/2016 13:00:00 DIS Inpatient ZAC GUPTA MD [facility] 4TH ACUTE ON CHRONIC RENAL FAILURE,FEVER,TIA [id number] 08/19/2014 17:49:00 08/19/2014 20:48:00 DIS Emergency CALE DE LA GARZA DO [facility] ER [id number] 06/24/2014 10:22:00 06/24/2014 23:59:59 CLS Outpatient OJ MOHR FACC, ALI FACP CCDS [facility] CARD [id number] 06/21/2014 11:37:00 06/21/2014 23:59:59 CLS Outpatient LINNETTE GOLDSTEIN MD [facility] LAB [id number] 07/12/2013 13:28:00 10/10/2013 00:01:00 DIS Outpatient FLAQUITA KELLY [facility] ONC [id number] 06/11/2013 07:33:00 06/11/2013 23:59:59 CLS Outpatient LINNETTE GOLDSTEIN MD [facility] RAD [id number] 06/06/2013 10:04:00 06/06/2013 23:59:59 CLS Outpatient LINNETTE GOLDSTEIN MD [facility] LAB [id number] 09/13/2018 04:08:00 ACT Emergency HOLLI DO, CALE K [facility] ER FALL,AMS [id number] 06/28/2014 12:43:00 Document Registration [id number] 10/11/2013 00:00:00 Document Registration [id number] 06/20/2012 21:46:00 Document Registration [id number] 05/24/2011 11:36:00 Document Registration [id number] 04/11/2011 18:27:00 Document Registration [id number] 02/09/2017 11:29:00 02/09/2017 23:59:00 DIS Outpatient ZAC GUPTA [id number] 01/07/2017 10:14:00 01/07/2017 23:59:00 DIS Outpatient [id number] 09/20/2017 14:34:40 09/20/2017 23:59:59 CLS Outpatient
[2018-09-13] MEDS ORDERED: ACETAMINOPHEN 650 MG SUPP (TYLENOL) PR PRN (07:15)
[2018-09-13] MEDS ORDERED: ONDANSETRON 4 MG/2 ML (SDV) Z0FRAN IV PRN (07:15)
[2018-09-13] MEDS: D5 1/2 NS 1000 ML IV SOLUTION 1,000 ML IV SCH ×2 (08:20→17:36)
--- NOTE | 2018-09-13 08:42 | History & Physicial ---
History of Present Illness History of Present Illness Reason for visit/HPI PT IS AN 83 Y/O MALE WHO IS KNOWN TO ME FROM CLINIC. HE PRESENTED TO THE HOSPITAL EARLY THIS MORNING WITH ACUTE SHORTNESS OF BREATH AND WEAKNESS. APPARENTLY HE HAD CONFUSION WELL, HAD GOTTEN UP AND TRIPPED BACKWARD INTO THE LAUNDRY BASKET AND FELL ON HIS BACKSIDE INTO THE BASKET. HIS FAMILY DENIES HIM HITTING HIS HEAD, CT IN THE ER WAS NEGATIVE FOR ANY ACUTE CHANGES. THE PT WAS FOUND TO HAVE ACUTE PNEUMONIA AND WAS NOT SEPTIC AT TIME OF ADMISSION. HE WAS ADMITTED TO 4TH FLOOR. Date of Admission Sep 13, 2018 at 06:34 Date Seen by a Provider: Sep 14, 2018 Time Seen by a Provider: 08:40 I consulted on this patient on 09/13/18 08:40 Attending Physician Zac Larsen MD Admitting Physician Zac Larsen MD Consult Allergies and Home Medications Allergies Coded Allergies: No Known Drug Allergies (Unverified , 01/14/17) Home Medications Acetaminophen 650 Mg Tablet.er, 650-1,300 MG PO Q8H PRN for PAIN-MILD, (Reported ) Amiodarone HCl 200 Mg Tablet, 200 MG PO DAILY, (Reported) Amlodipine Besylate 5 Mg Tablet, 5 MG PO DAILY, (Reported) Aspirin 81 Mg Tablet.dr, 81 MG PO DAILY, (Reported) Atenolol 50 Mg Tablet, 50 MG PO DAILY, (Reported) Atorvastatin Calcium 40 Mg Tablet, 40 MG PO HS, (Reported) Cholecalciferol (Vitamin D3) 5,000 Unit Tablet, 5,000 UNIT PO DAILY, (Reported) Fenofibrate 160 Mg Tablet, 160 MG PO DAILY, (Reported) L. Acidophilus/Bifid. Animalis 1 Each Capsule, 1 CAP PO DAILY, (Reported) Niacin 500 Mg Tablet, 500 MG PO DAILY, (Reported) Tamsulosin HCl 0.4 Mg Cap.er.24h, 0.4 MG PO HS, (Reported) Vit C/Vit E/Lutein/Min/Elmo-3 1 Each Capsule, 1 CAP PO DAILY, (Reported) Patient Home Medication List Home Medication List Reviewed: Yes Past Dxxxzqg-Ehtimm-Kjhucm Hx Patient Social History Marrital Status: Living Status: LIVES AT HOME WITH SPOUSE Employed/Student: retired Alcohol Use: Denies Use Recreational Drug Use: No Smoking Status: Never a Smoker Former Smoker, Quit: May 28, 1960 Type Used: Cigarettes 2nd Hand Smoke Exposure: No Physical Abuse Screen: No Sexual Abuse: No Recent Foreign Travel: No Contact w/other who traveled: No Recent Hopitalizations: Yes (pneumonia) Recent Infectious Disease Expo: No Immunizations Up To Date Date of Pneumonia Vaccine: Aug 13, 2018 Date of Influenza Vaccine: Aug 13, 2018 Seasonal Allergies Seasonal Allergies: No Surgeries Yes (BILATERAL KNEE REPLACEMENTS) Appendectomy, Joint Replacement, Orthopedic Respiratory Yes Currently Using CPAP: No Currently Using BIPAP: No Cardiovascular Yes Atrial Fibrillation, High Cholesterol, Hypertension Neurological Yes (OLD STROKE NOTED ON CT HEAD 09/13/18) Stroke Reproductive System Hx Reproductive Disorders: No Genitourinary Yes Benign Prostatic Hyperpl, Kidney Stones, Renal Failure Gastrointestinal No Musculoskeletal Yes Arthritis Endocrine History of Endocrine Disorders: Yes Endocrine Disorders: Diabetes, Non-Insulin dep HEENT History of HEENT Disorders: No Loss of Vision: Denies Hearing Impairment: Hard of Hearing Cancer No Psychosocial History of Psychiatric Problem: No Integumentary History of Skin or Integumenta: No Blood Transfusions History of Blood Disorders: Yes (reports has seen oncology registrar for low wbc's, no diagnosis) Reviewed Nursing Assessment Reviewed/Agree w Nursing PMH: Yes Family Medical History Significant Family History: Heart Disease, Cancer (DAUGHTER HAS METASTATIC CANCER), Hypertension Review of Systems Constitutional: No chills, No fever; malaise, weakness EENTM: hearing loss (CHRONIC), mouth pain (DRY MOUTH); No hoarseness, No throat pain Respiratory: cough, dyspnea on exertion, short of breath Cardiovascular: No edema, No palpitations Gastrointestinal: No abdominal pain Genitourinary: other (ENCARNACION IN PLACE FROM ER) Musculoskeletal: No back pain; muscle weakness Skin: No change in color, No lesions; rash (ON ABDOMEN AND BACK) Psychiatric/Neurological: Denies Anxiety, Denies Depressed; Weakness All Other Systems Reviewed Negative Unless Noted: Yes Physical Exam Vital Signs Vital Signs - First Documented 09/13/18 04:07 Temp 100.6 Pulse 100 Resp 18 B/P (MAP) 126/63 (84) Pulse Ox 96 O2 Delivery Room Air Capillary Refill : Less Than 3 Seconds Height, Weight, BMI Height: 6'2.00" Weight: 200lbs. 0.0oz. [id number]; 25.7 BMI Method:Estimated General Appearance: No Apparent Distress, WD/WN Eyes: Bilateral Eye Normal Inspection HEENT: PERRL/EOMI, Other (DRY MOUTH) Neck: Full Range of Motion, Supple Respiratory: Crackles (LEFT BASE), Decreased Breath Sounds Cardiovascular: Regular Rate, Rhythm Gastrointestinal: Normal Bowel Sounds, Non Tender, Soft Rectal: Deferred Back: Normal Inspection, No Vertebral Tenderness Extremity: Normal Capillary Refill, Normal Range of Motion, Non Tender, No Calf Tenderness, No Pedal Edema Neurologic/Psychiatric: Alert, Oriented x3, Normal Mood/Affect, nail technician II-XII Norm as Tested (EXCEPT HARD OF HEARING) Skin: Warm/Dry, Other (SCABBED RASH ON ABDOMEN AND BACK ) Lymphatic: No Adenopathy Assessment/Plan Assessment and Plan PNEUMONIA DYSPNEA ACUTE ON CHRONIC STAGE 3 RENAL FAILURE WEAKNESS FALLING EPISODES HYPERTENSION ATRIAL FIBRILLATION HYPERLIPIDEMIA HARD OF HEARING PNEUMONIA - WITH DYSPNEA - PT ON OXYGEN VIA NASAL CANNULA CONTINUE WITH THIS, WEAN ABLE TO KEEP O2 GREATER THAN 92%. ROCEPHIN AND AZITHROMYCIN STARTED FOR TREATMENT OF INFECTION, MONITOR SYMPTOMS, REPEAT CHEST XRAY IN MORNING, WAITING ON BLOOD, SPUTUM CULTURES. ACUTE ON CHRONIC STAGE 3 RENAL FAILURE - HYDRATE PATIENT, MONITOR RENAL FUNCTION , RENALLY ADJUST MEDICATIONS. WEAKNESS WITH FALLING EPISODES - CHRONIC ARTHRITIS - SUPPORTIVE CARE, START PHYSICAL THERAPY - DISCUSSED POSSIBLE LONG TERM VERSUS HOME HEALTH WITH FAMILY. HYPERTENSION - LOW BLOOD PRESSURE ON ADMISSION - WILL REVIEW MEDICATIONS WHEN RECONCILED. HOLD FOR NOW. ATRIAL FIBRILLATION - PT IN NORMAL SINUS RHYTHM - MONITOR - WILL WAIT ON RESTARTING MEDICATION UNTIL MEDS HAVE BEEN RECONCILED. HYPERLIPIDEMIA - RESTART HOME MEDS ONCE RECONCILED. HARD OF HEARING - SUPPORTIVE CARE Admission Diagnosis PNEUMONIA DYSPNEA ACUTE ON CHRONIC STAGE 3 RENAL FAILURE WEAKNESS FALLING EPISODES HYPERTENSION ATRIAL FIBRILLATION HYPERLIPIDEMIA HARD OF HEARING Admission Status: Inpatient Order (span 2 midnights) Reason for Inpatient Admission: WILL NEED HOSPITALIZATION FOR MORE THAN TWO MIDNIGHTS DUE TO INFECTION/PNEUMONIA, WEAKNESS, WAITING ON CULTURES AND STABILIZATION OF PATIENT'S INFECTION, AND ACUTE ON CHRONIC RENAL FAILURE WITH DEHYDRATION Clinical Quality Measures DVT/VTE Risk/Contraindication: Risk Factor Score Per Nursin RFS Level Per Nursing on Admit: 4+=Very High ZAC LARSEN MD Sep 13, 2018 08:41
[2018-09-13] MEDS ORDERED: AMLO5TAB7 PO (08:56)
[2018-09-13] MEDS ORDERED: AZITHROMYCIN INJECTION 500 MG in NS (IVPB) 250 ML IV SCH (09:00)
[2018-09-13] MEDS ORDERED: ASPI-983 PO (09:07)
[2018-09-13] MEDS ORDERED: ACET-2650 PO (09:07)
[2018-09-13] MEDS ORDERED: [UNRECOGNIZED DRUG - OTHER] PO (09:07)
[2018-09-13] MEDS: cefTRIAXone FOR IV USE 1,000 MG in NS (IVPB) 50 ML IV SCH (11:00)
--- NOTE | 2018-09-13 16:08 | Physical Therapy Evaluation ---
PT Evaluation-General Medical Diagnosis Admission Date Sep 13, 2018 at 06:34 Medical Diagnosis: Pneumonia, Weakness Onset Date: Sep 13, 2018 Therapy Diagnosis Therapy Diagnosis: Debility / General Weakness Height/Weight Height (Feet): 6 Height (Inches): 2.00 Weight (Pounds): 200 Weight (Ounces): 0.0 Precautions Precautions/Isolations: Fall Prevention, Standard Precautions Weight Bear Status Right Lower Extremity: Right Weight Bearing/Tolerated Left Lower Extremity: Left Weight Bearing/Tolerated Referral Physician: Rosalinda Larsen MD Reason for Referral: Evaluation/Treatment Medical History Pertinent Medical History: Atrial Fib, Arthritis, CAD, COPD, DM, HTN, Renal Insufficiency Current History Patient admitted to hospital for pneumonia and falling episode at home. Reviewed History: Yes Social History Home: Single Level Current Living Status: Spouse Entry Into Home: Level Entry PT Steps Into Home: 0 PT Steps Inside Home: 0 Prior/Core FIM Prior Level of Function Functional [place] Measure 0=Not Assessed/NA 4=Minimal Assistance 1=Total Assistance 5=Supervision or Setup 2=Maximal Assistance 6=Modified [place] 3=Moderate Assistance 7=Complete IndependenceIRFPAI Quality Coding Scale 6 Independent with activity with or without an assistive device 5 Patient requires set up or clean up by helper. Patient completes activity by themselves 4 Supervision or touching assist (CGA). [place] provide cues , steadying assist 3 The helper provides less than half the effort to complete the activity 2 The helper provides more than half the effort to complete the activity 1 Dependent. The helper does all the effort to complete an activity 7 Patient refused to complete or attempt activity 9 The patient did not perform the activity before the current illness or injury 88 Not attempted due to Medical conditions or safety concerns Bed Mobility: 6 Transfers (B,C,W/C) (FIM): 6 Gait: 6 Stairs: 2 Patient states he was ambulating independently but needed help on occasion and he could do a few steps at a time. PT Evaluation-Current Subjective Pt asleep in bed when PT arrived. Pt woke up in confusion to greeting from PT services. Pt agreed to therapy after encouraged him to PT evaluation. Pain Location: No Pain Reported Pt/Family Goals to be independent at home Objective Patient Orientation: Confused, Mumbles Attachments: Hansen Catheter, IV ROM/Strength ROM Upper Extremities WNL ROM Lower Extremities WNL Strength Upper Extremities NT Strength Lower Extremities Unable to test due to patient not cooperating with directions to follow gross motor assessment Integumentary/Posture Bladder Incontinence: Hansen Cath Neuromuscular (Tone, Coordination, Reflexes) NT Sensory Hearing: Impaired Sensation Right Upper Extremit: Intact Sensation Left Upper Extremity: Intact Sensation Right Lower Extremit: Intact Sensation Left Lower Extremity: Intact Transfers Functional [place] Measure 0=Not Assessed/NA 4=Minimal Assistance 1=Total Assistance 5=Supervision or Setup 2=Maximal Assistance 6=Modified [place] 3=Moderate Assistance 7=Complete [place] Transfers (B, C, W/C) (FIM): 3 Scootin Rollin Supine to/from Sit: 3 Sit to/from Stand: 4 Gait Mode of Locomotion: Walk Anticipated Mode of Locomotion: Walk Gait (FIM): 4 Distance (FIM): 3=150 ft Distance: 150' Gait Level of Assist: 4 Gait Persons Needed: 1 Gait Assistive Device: FWW Balance Sitting Static: Good Sitting Dynamic: Good Standing Static: Good Standing Dynamic: Good Assessment/Needs Patient needed mod assist when transferring from supine to sitting to bedside. Pt was unable to follow directions for gross extremity assessment. Pt was able to stand with CGA assist and ambulate for 150' with a FWW. Patient required CGA during ambulation and did not show any signs of fatigue. Patient will continue to benefit from therapy to maintain current function for daily demands. Rehab Potential: Fair PT Life Skills Coordinator Volunteer Goals Life Skills Coordinator Volunteer Goals PT Residential Goals Time Frame: Sep 20, 2018 Transfers (B,C,W/C) (FIM): 5 Gait (FIM): 5 Gait distance (FIM): 3=150 ft Distance: >150' Gait Level of Assist: 5 Gait Assistive Device: FWW PT Plan Problem List Problem List: Activity Tolerance, Functional Strength, Safety, Balance, Gait, Transfer, Bed Mobility, ROM Treatment/Plan Treatment Plan: Continue Plan of Care Treatment Plan: Bed Mobility, Education, Functional Activity [place], Functional Strength, Gait, Safety, Therapeutic Exercise, Transfers Treatment Duration: Sep 20, 2018 Frequency: 6 times per week Estimated Hrs Per Day: .25 hour per day Patient and/or Family Agrees t: Yes Safety Risks/Education Patient Education: Gait Training, Transfer Techniques, Steps, Correct Positioning, Safety Issues Teaching Recipient: Patient, Family Teaching Methods: Demonstration, Discussion Response to Teaching: Verbalize Understanding, Reinforcement Needed Discharge Recommendations Plan Patient will perform bed mobility and transfer training, balance and endurance training, functional strengthening, stair training, gait training, and education , to improve functional mobility and independence at home Therapy D/C Recommendations: Home w/ Family Support Time/GCodes Time In: 345 Time Out: 400 Total Billed Treatment Time: 15 Total Billed Treatment 1 visit EV - 15 mins MIKE OSPINA PT Sep 13, 2018 16:08
[2018-09-14] VITALS (7 sets, daily range): BP systolic 136–145; BP diastolic 68–87
[2018-09-14] MEDS: D5 1/2 NS 1000 ML IV SOLUTION 1,000 ML IV SCH ×3 (00:35→12:42)
[2018-09-14] MEDS: cefTRIAXone FOR IV USE 1,000 MG in NS (IVPB) 50 ML IV SCH (08:31)
[2018-09-14 08:46] LABS: BASOPHILS % (AUTO) 0 % (0-10); EOSINOPHILS # (AUTO) 0.1 10^3/uL (0.0-0.3); EOSINOPHILS % (AUTO) 0 % (0-10); HEMATOCRIT 28 % (40-54); HEMOGLOBIN 8.8 G/DL (13.3-17.7); LYMPHOCYTES % (AUTO) 7 % (12-44); MEAN CORPUSCULAR HEMOGLOBIN 31 PG (25-34); MEAN CORPUSCULAR HGB CONC 32 G/DL (32-36); MEAN CORPUSCULAR VOLUME 99 FL (80-99); MEAN PLATELET VOLUME 10.2 FL (7.4-10.4); MONOCYTES # (AUTO) 1.8 X 10^3 (0.0-1.0); MONOCYTES % (AUTO) 13 % (0-12); NEUTROPHILS # (AUTO) 10.8 X 10^3 (1.8-7.8); NEUTROPHILS % (AUTO) 79 % (42-75); PLATELET COUNT 92 10^3/uL (130-400); RED BLOOD COUNT 2.81 10^6/uL (4.35-5.85); RED CELL DISTRIBUTION WIDTH 15.7 % (10.0-14.5); WHITE BLOOD COUNT 13.7 10^3/uL (4.3-11.0)
[2018-09-14 09:09] LABS: BILIRUBIN,TOTAL 0.4 MG/DL (0.1-1.0); CALCIUM 8.5 MG/DL (8.5-10.1); CREATININE SERUM 3.8 MG/DL (0.60-1.30); MAGNESIUM 1.5 MG/DL (1.8-2.4); POTASSIUM 4.1 MMOL/L (3.6-5.0); TOTAL PROTEIN 5.3 GM/DL (6.4-8.2)
--- NOTE | 2018-09-14 09:23 | Progress Note ---
Subjective Date Seen by a Provider: Sep 14, 2018 Time Seen by a Provider: 09:20 Subjective/Events-last exam PT REPORTS THAT HE IS FEELING MUCH BETTER, HIS REPORTS THAT HE SEEMED TO REALLY IMPROVE LAST NIGHT/EARLY THIS MORNING. HE REPORTS THAT HE HAS NO CHEST PAIN, NO SHORTNESS OF BREATH, NO DIZZINESS. HE HAS PARTICIPATED WITH THERAPY WELL. Review of Systems General: Fatigue; No Malaise HEENT: No Head Aches Pulmonary: No Dyspnea; Cough Cardiovascular: No: Chest Pain, Palpitations Gastrointestinal: No: Nausea, Abdominal Pain, Diarrhea Genitourinary: No Dysuria, No Frequency Musculoskeletal: No: back pain Neurological: Weakness; No: Confusion Focused Exam Lactate Level 09/13/18 04:16: Lactic Acid Level 1.54 Time of Focused Exam: 05:00 Objective Exam Last Set of Vital Signs Vital Signs Date Time Temp Pulse Resp B/P (MAP) Pulse Ox O2 Delivery O2 Flow Rate FiO2 09/14/18 08:00 97.9 79 20 138/68 (91) 97 Room Air Capillary Refill : Less Than 3 Seconds I&O Intake and Output 09/14/18 00:00 Intake Total 1810 ml Output Total 800 ml Balance 1010 ml Intake Oral 700 ml IV Total 1110 ml Output Urine Total 800 ml # Bowel Movements 1 Daily Weight Change No General: Alert, Oriented X3, Cooperative, No Acute Distress HEENT: Atraumatic, PERRLA Neck: Supple Lungs: Other ([place] LEFT BASE) Heart: Regular Rate Abdomen: Normal Bowel Sounds, Soft Skin: Other (SLIGHT IRRITATION ACROSS ABDOMEN/BACK) Psych/Mental Status: Mental Status NL, Mood NL Results Lab Laboratory Tests 09/14/18 07:54: White Blood Count 13.7H, Red Blood Count 2.81L, Hemoglobin 8.8L, Hematocrit 28L , Mean Corpuscular Volume 99, Mean Corpuscular Hemoglobin 31, Mean Corpuscular Hemoglobin Concent 32, Red Cell Distribution Width 15.7H, Platelet Count 92L, Mean Platelet Volume 10.2, Neutrophils (%) (Auto) 79H, Lymphocytes (%) (Auto) 7L , Monocytes (%) (Auto) 13H, Eosinophils (%) (Auto) 0, Basophils (%) (Auto) 0, Neutrophils # (Auto) 10.8H, Lymphocytes # (Auto) 1.0, Monocytes # (Auto) 1.8H, Eosinophils # (Auto) 0.1, Basophils # (Auto) 0.0, Sodium Level 138, Potassium Level 4.1, Chloride Level 115H, Carbon Dioxide Level 14L, Anion Gap 9, Blood Urea Nitrogen 56H, Creatinine 3.80H, Estimat Glomerular Filtration Rate 15, BUN/ Creatinine Ratio 15, Glucose Level 123H, Calcium Level 8.5, Corrected Calcium 9.3, Magnesium Level 1.5L, Total Bilirubin 0.4, Aspartate Amino Transf (AST/SGOT ) 42H, Alanine Aminotransferase (ALT/SGPT) 25, Alkaline Phosphatase 36L, Total Protein 5.3L, Albumin 3.0L Microbiology 09/13/18 Blood Culture - Preliminary, Resulted Strep Species, Alpha Hemolytic See Report 09/13/18 Influenza Types A,B Antigen (JUAN ALBERTO) - Final, Complete Assessment/Plan Assessment/Plan Assess & Plan/Chief Complaint PNEUMONIA DYSPNEA ACUTE ON CHRONIC STAGE 3 RENAL FAILURE WEAKNESS FALLING EPISODES HYPERTENSION ATRIAL FIBRILLATION HYPERLIPIDEMIA HARD OF HEARING PNEUMONIA - WITH DYSPNEA RESOLVED - - OXYGEN WEANED OFF - CONTINUE WITH ROCEPHIN AND AZITHROMYCIN STARTED FOR TREATMENT OF INFECTION, MONITOR SYMPTOMS, REPEAT CHEST XRAY HAS IMPROVED, WAITING ON BLOOD, SPUTUM CULTURES. ACUTE ON CHRONIC STAGE 3 RENAL FAILURE - HYDRATE PATIENT, MONITOR RENAL FUNCTION , RENALLY ADJUST MEDICATIONS. WEAKNESS WITH FALLING EPISODES - CHRONIC ARTHRITIS - SUPPORTIVE CARE, STARTED PHYSICAL THERAPY - DISCUSSED POSSIBLE SENIOR LIVING VERSUS HOME HEALTH WITH FAMILY. -HOWEVER WITH HOW PT IS LOOKING TODAY- WILL LOOK AT OUTPATIENT THERAPY ON DISCHARGE FAMILY DOES NOT WANT HOME HEALTH OR SENIOR LIVING PLACEMENT. ROSETTE ENCARNACION TODAY HYPERTENSION - RESTART MEDICATION TODAY HIS BLOOD PRESSURE HAS INCREASED WITH HYDRATION AND TREATMENT OF INFECTION. ATRIAL FIBRILLATION - PT IN NORMAL SINUS RHYTHM ON ADMISSION - CONVERTED TO AFIB - WHICH IS CHRONIC FOR THIS PATIENT CONTINUE TO - MONITOR - WILL RESTART HOME MEDICATION TODAY. HYPERLIPIDEMIA - RESTART HOME MEDS TODAY. HARD OF HEARING - SUPPORTIVE CARE DVT PROPHYLAXIS WITH SCDS GI PROPHYLAXIS WITH H 2 HILARIO Clinical Quality Measures Admission Status Admission Dx PNEUMONIA DYSPNEA ACUTE ON CHRONIC STAGE 3 RENAL FAILURE WEAKNESS FALLING EPISODES HYPERTENSION ATRIAL FIBRILLATION HYPERLIPIDEMIA HARD OF HEARING DVT/VTE Risk/Contraindication: Risk Factor Score Per Nursin RFS Level Per Nursing on Admit: 4+=Very High ZAC GUPTA MD Sep 14, 2018 09:23
[2018-09-14] MEDS ORDERED: SALIVA STIMULANT MOUTH SPRAY (BIOTENE) 1.5 OZ MM PRN (09:30)
--- NOTE | 2018-09-14 11:03 | Diagnostic Imaging Report ---
INDICATION: Infiltrate, followup. TECHNIQUE: Two view chest 8:45 AM CORRELATION STUDY: 09/13/2018 FINDINGS: There is increasing somewhat triangular opacity over the left mid lung field. Minimal infiltrate also suggested about the bilateral lung bases. Heart size enlarged. Vasculature appearing within normal limits. Likely trace effusions. Thin, bridging osteophytes of the thoracic spine. Multiple overlying monitor leads. IMPRESSION: 1. There appears to be increasing somewhat triangular-shaped opacity, likely infiltrate, of the left mid lung field. Additional areas of infiltrate suggested about the bilateral lung bases. Followup imaging is recommended. Dictated by: Dictated on workstation # [id number]
--- NOTE | 2018-09-14 11:28 | Physical Therapy Daily Note ---
PT Daily Note-Current Subjective Pt asleep in bed when PT arrived. Pts woke him up and asked if he would like to get up and walk for PT. Pt agreed to continue with therapy. Pain Numeric Pain Scale: 0-No Pain Location: No Pain Reported Mental Status Patient Orientation: Confused, Mumbles Attachments: Hansen Catheter, IV Transfers Functional [place] Measure 0=Not Assessed/NA 4=Minimal Assistance 1=Total Assistance 5=Supervision or Setup 2=Maximal Assistance 6=Modified [place] 3=Moderate Assistance 7=Complete IndependenceIRFPAI Quality Coding Scale 6 Independent with activity with or without an assistive device 5 Patient requires set up or clean up by helper. Patient completes activity by themselves 4 Supervision or touching assist (CGA). [place] provide cues , steadying assist 3 The helper provides less than half the effort to complete the activity 2 The helper provides more than half the effort to complete the activity 1 Dependent. The helper does all the effort to complete an activity 7 Patient refused to complete or attempt activity 9 The patient did not perform the activity before the current illness or injury 88 Not attempted due to Medical conditions or safety concerns Transfers (B, C, W/C) (FIM): 4 Scootin Rollin Supine to/from Sit: 4 Sit to/from Stand: 4 Weight Bearing Right Lower Extremity: Right Weight Bearing/Tolerated Left Lower Extremity: Left Weight Bearing/Tolerated Gait Training Gait (FIM): 4 Distance (FIM): 3=150 ft Distance: 200' Gait Level of Assist: 4 Gait Persons Needed: 1 Gait Assistive Device: FWW slow, steady gait sequence Assessment Pt is able to ambulate 200' with FWW requiring CGA. Pt did not show any signs of fatigue during ambulation and stated he was not tired at all during exercise. Pt returned to bed will continue to benefit from ambulation to maintain current function. Patient requires time to complete all functional tasks. He did toilet self after treatment. PT Content Analyst Goals Content Analyst Goals PT Fpc Goals Time Frame: Sep 20, 2018 Transfers (B,C,W/C) (FIM): 5 Gait (FIM): 5 Gait distance (FIM): 3=150 ft Distance: >150' Gait Level of Assist: 5 Gait Assistive Device: FWW PT Plan Treatment/Plan Treatment Plan: Continue Plan of Care Treatment Plan: Bed Mobility, Education, Functional Activity Mohsen, Functional Strength, Gait, Safety, Therapeutic Exercise, Transfers Treatment Duration: Sep 20, 2018 Frequency: 6 times per week Estimated Hrs Per Day: .25 hour per day Patient and/or Family Agrees t: Yes Time/GCodes Time In: 1054 Time Out: 1117 Total Billed Treatment Time: 23 Total Billed Treatment 1 visit FA x 2 - 23' LEE ANN VIRAMONTES PT Sep 14, 2018 11:28
[2018-09-14] MEDS: LACTOBACILLUS ACIDOPHILUS (PROBIOTIC) CAPSULE PO SCH (12:34)
[2018-09-14] MEDS: NIACIN 500 MG TABLET PO SCH (12:34)
[2018-09-14] MEDS: amLODIPine 5 MG (NORVASC) TAB PO SCH (12:34)
[2018-09-14] MEDS: ASPIRIN E.C. 81 MG (ECOTRIN) TAB PO SCH (12:34)
[2018-09-14] MEDS: MAGNESIUM 1 GM/100 ML IVPB 100 ML IV SCH ×2 (12:34→15:32)
[2018-09-14] MEDS: VITAMIN D3 5,000 UNITS (CHOLECALCIFEROL ) CAPSULE PO SCH (12:34)
[2018-09-14] MEDS: ATENOLOL 50 MG (TENORMIN) TAB PO SCH (12:34)
[2018-09-14] MEDS: AZITHROMYCIN 250 MG TAB (ZITHROMAX) PO SCH (12:34)
[2018-09-14] MEDS: AMIODARONE 200 MG (CORDARONE) TAB PO SCH (12:39)
[2018-09-14] MEDS: TRIAMCINOLONE 0.5% CR (KENALOG) 15 GM TUBE TOP SCH ×2 (15:37→20:47)
[2018-09-14] MEDS ORDERED: TAMSULOSIN 0.4 MG (FLOMAX) CAP PO SCH (21:00)
[2018-09-14] MEDS ORDERED: ATORVASTATIN 40 MG (LIPITOR) TABLET PO SCH (21:00)
[2018-09-15 00:35] VITALS: BP 155/69
[2018-09-15] MEDS: D5 1/2 NS 1000 ML IV SOLUTION 1,000 ML IV SCH (01:16)
[2018-09-15 04:04] VITALS: BP 141/76
[2018-09-15] MEDS: LACTOBACILLUS ACIDOPHILUS (PROBIOTIC) CAPSULE PO SCH (06:24)
[2018-09-15] MEDS: VITAMIN D3 5,000 UNITS (CHOLECALCIFEROL ) CAPSULE PO SCH (06:24)
[2018-09-15 07:32] LABS: HEMOGLOBIN 8.7 G/DL (13.3-17.7); RED BLOOD COUNT 2.8 10^6/uL (4.35-5.85); RED CELL DISTRIBUTION WIDTH 15.2 % (10.0-14.5)
[2018-09-15 07:54] LABS: CALCIUM 8.7 MG/DL (8.5-10.1); CREATININE SERUM 3.73 MG/DL (0.60-1.30); POTASSIUM 4.1 MMOL/L (3.6-5.0)
[2018-09-15 08:00] VITALS: BP 147/82
--- NOTE | 2018-09-15 08:28 | Diagnostic Imaging Report ---
INDICATION: Pneumonia and cough. PA and lateral chest obtained at 8:02 a.m. is compared with 09/14/2018. FINDINGS: Heart and mediastinal silhouette are normal in appearance. The right lung appears clear. There is some infiltrate in the left perihilar region which is similar to the prior study. There is a trace of pleural fluid on the right side. IMPRESSION: Unchanged mild left perihilar infiltrate. Minimal trace of pleural fluid on the right side. Stable exam compared to yesterday. Dictated by: Dictated on workstation # [id number]
[2018-09-15] MEDS: ASPIRIN E.C. 81 MG (ECOTRIN) TAB PO SCH (08:48)
[2018-09-15] MEDS: TRIAMCINOLONE 0.5% CR (KENALOG) 15 GM TUBE TOP SCH (08:48)
[2018-09-15] MEDS: cefTRIAXone FOR IV USE 1,000 MG in NS (IVPB) 50 ML IV SCH (08:48)
[2018-09-15] MEDS: amLODIPine 5 MG (NORVASC) TAB PO SCH (08:48)
[2018-09-15] MEDS: AZITHROMYCIN 250 MG TAB (ZITHROMAX) PO SCH (08:48)
[2018-09-15] MEDS: NIACIN 500 MG TABLET PO SCH (08:48)
[2018-09-15] MEDS: ATENOLOL 50 MG (TENORMIN) TAB PO SCH (08:48)
[2018-09-15] MEDS: AMIODARONE 200 MG (CORDARONE) TAB PO SCH (08:48)
[2018-09-15] MEDS ORDERED: IRON SUCROSE 200 MG/10 ML (VENOFER) VIAL IV NR (09:15)
--- NOTE | 2018-09-15 09:38 | Discharge Summary ---
Diagnosis/Chief Complaint Date of Admission Sep 13, 2018 at 06:34 Date of Discharge 09/15/18 Discharge Date: Sep 15, 2018 Discharge Time: 11:00 Admission Diagnosis Admission Diagnosis PNEUMONIA DYSPNEA ACUTE ON CHRONIC STAGE 3 RENAL FAILURE WEAKNESS FALLING EPISODES HYPERTENSION ATRIAL FIBRILLATION HYPERLIPIDEMIA HARD OF HEARING Discharge Diagnosis PNEUMONIA DYSPNEA ACUTE ON CHRONIC STAGE 3 RENAL FAILURE WEAKNESS FALLING EPISODES HYPERTENSION ATRIAL FIBRILLATION HYPERLIPIDEMIA HARD OF HEARING Reason Hospital Visit PT IS AN 83 Y/O MALE WHO IS KNOWN TO ME FROM CLINIC. HE PRESENTED TO THE HOSPITAL EARLY THIS MORNING WITH ACUTE SHORTNESS OF BREATH AND WEAKNESS. APPARENTLY HE HAD CONFUSION WELL, HAD GOTTEN UP AND TRIPPED BACKWARD INTO THE LAUNDRY BASKET AND FELL ON HIS BACKSIDE INTO THE BASKET. HIS FAMILY DENIES HIM HITTING HIS HEAD, CT IN THE ER WAS NEGATIVE FOR ANY ACUTE CHANGES. THE PT WAS FOUND TO HAVE ACUTE PNEUMONIA AND WAS NOT SEPTIC AT TIME OF ADMISSION. HE WAS ADMITTED TO 4TH FLOOR. Discharge Summary Discharge Physical Examination Allergies: Coded Allergies: No Known Drug Allergies (Unverified , 01/14/17) Vitals & I&Os Vital Signs Date Time Temp Pulse Resp B/P (MAP) Pulse Ox O2 Delivery O2 Flow Rate FiO2 09/15/18 08:00 97.7 64 20 147/82 (103) 96 Room Air General Appearance: Alert, Oriented X3, Cooperative, No Acute Distress HEENT: Atraumatic, PERRLA Respiratory: Clear to Auscultation, Normal Air Movement Cardiovascular: Regular Rate Abdominal: Normal Bowel Sounds, Soft, No Tenderness Extremities: No Cyanosis Skin: Other (IMPROVED RASH ACROSS ABDOMEN AND BACK) Neuro: Cranial Nerves 3-12 NL (HEARING LOSS - HARD OF HEARING) Psych/Mental Status: Mental Status NL, Mood NL Hospital Course PNEUMONIA DYSPNEA ACUTE ON CHRONIC STAGE 3 RENAL FAILURE WEAKNESS FALLING EPISODES HYPERTENSION ATRIAL FIBRILLATION HYPERLIPIDEMIA HARD OF HEARING PNEUMONIA - WITH DYSPNEA RESOLVED - - OXYGEN WEANED OFF - CONTINUED WITH ROCEPHIN AND AZITHROMYCIN - REPEAT CHEST XRAY HAS IMPROVED, BLOOD CULTURE SHOWED STREP PNEUMO - SENSITIVITIES SHOW GERARDO-SENSITIVE - WILL DC ON 3 MORE DAYS OF AZITHROMYCIN AND 5 DAYS OF CEFDINIR. ACUTE ON CHRONIC STAGE 3 RENAL FAILURE NOW STAGE 4 - HYDRATED PATIENT, DIETARY CONSULT FOR DISCUSSION OF RENAL DIET WITH PT AND HIS , CONTINUE TO RENALLY ADJUST MEDICATIONS. HE HAS SEEN CARBONIZER TESTER - HIS STATES THAT THEY REALLY DIDN'T LEARN ANYTHING FROM THE CARBONIZER TESTER- HOWEVER, HE WILL BE ENCOURAGED TO CONTINUE TO KEEP APPTS WITH THE SPECIALIST HIS RENAL FUNCTION HAS MOVED FROM STAGE 3 TO 4. WEAKNESS WITH FALLING EPISODES - CHRONIC ARTHRITIS - SUPPORTIVE CARE, STARTED PHYSICAL THERAPY - HE HAS IMPROVED MORE THAN EXPECTED - WILL DO OUT PATIENT THERAPY AT [facility] THIS IS CLOSER TO HIS HOME. HYPERTENSION - RESTARTED HOME MEDICATION, CONTINUE REGIMEN ON DISCHARGE WITH NO CHANGES. ATRIAL FIBRILLATION - PT IN NORMAL SINUS RHYTHM ON ADMISSION - CONVERTED TO AFIB - WHICH IS CHRONIC FOR THIS PATIENT CONTINUE WITH CHRONIC HOME THERAPY - MONITOR SYMPTOMS. PT IS RATE CONTROLLED. HYPERLIPIDEMIA - RESTARTED HOME MEDICATIONS WITHOUT CHANGE IN HIS THERAPY. 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 Pending Labs Laboratory Tests 09/15/18 07:20: White Blood Count 8.0, Red Blood Count 2.80, Hemoglobin 8.7, Hematocrit 28, Mean Corpuscular Volume 98, Mean Corpuscular Hemoglobin 31, Mean Corpuscular Hemoglobin Concent 32, Red Cell Distribution Width 15.2, Platelet Count 89, Mean Platelet Volume 10.0, Sodium Level 136, Potassium Level 4.1, Chloride Level 114, Carbon Dioxide Level 15, Anion Gap 7, Blood Urea Nitrogen 54, Creatinine 3.73, Estimat Glomerular Filtration Rate 16, BUN/Creatinine Ratio 14 , Glucose Level 132, Calcium Level 8.7, Magnesium Level 2.0 Discharge Condition at discharge IMPROVING Instructions to patient/family Please see electronic discharge instructions given to patient. Discharge Medications Reviewed and agree with Discharge Medication list on patient's Discharge Instruction sheet Medication List: Active Scripts Active Triamcinolone Acetonide 0.5% Cream (Triamcinolone Acetonide) 15 Gm Cream..g. 1 Gm TOP BID APPLY TO RASH ON CHEST/ABDOMEN AND BACK UNTIL HEALED, THEN USE NEEDED IF RASH REAPPEARS Iron 100-Vitamin C Tablet (Iron,Carbonyl/Ascorbic Acid) 1 Each Tablet 1 Each PO UD PT TO TAKE THREE TIMES A WEEK (DO NOT TAKE WITH CALCIUM TAB/MUTIVITAMIN OR MILK PRODUCTS) Cefdinir 300 Mg Capsule 300 Mg PO BID Azithromycin 250 Mg Tablet 250 Mg PO DAILY Reported Tylenol Arthritis (Acetaminophen) 650 Mg Tablet.er 650-1,300 Mg PO Q8H PRN One-A-Day Trubiotics 2 Aramis Nieves Acidophilus/Bifid. Animalis) 1 Each Capsule 1 Cap PO DAILY Aspirin EC (Aspirin) 81 Mg Tablet.dr 81 Mg PO DAILY Amlodipine Besylate 5 Mg Tablet 5 Mg PO DAILY Atenolol 50 Mg Tablet 50 Mg PO DAILY Vitamin D3 (Cholecalciferol (Vitamin D3)) 5,000 Unit Tablet 5,000 Unit PO DAILY Niacin 500 Mg Tablet 500 Mg PO DAILY Ocuvite Softgel (Vit C/Vit E/Lutein/Min/[place]-3) 1 Each Capsule 1 Cap PO DAILY Fenofibrate 160 Mg Tablet 160 Mg PO DAILY Amiodarone HCl 200 Mg Tablet 200 Mg PO DAILY Atorvastatin Calcium 40 Mg Tablet 40 Mg PO HS Tamsulosin HCl 0.4 Mg Cap.er.24h 0.4 Mg PO HS Clinical Quality Measures DVT/VTE Risk/Contraindication: Risk Factor Score Per Nursin RFS Level Per Nursing on Admit: 4+=Very High Contraindications-Pharm: Other *list below* Other: STARTING SCD'S, NOT LOVENOX DUE TO ANEMIA - CONCERN FOR GI LOSSES ZAC GUPTA MD Sep 15, 2018 09:38
[2018-09-15] MEDS ORDERED: IRON1TAB89 PO (09:51)
[2018-09-15] MEDS ORDERED: CEFD300C3 PO (09:51)
[2018-09-15] MEDS ORDERED: AZIT250T12 PO (09:51)
[2018-09-15] MEDS ORDERED: TRIA15CR TOP (09:54)
--- NOTE | 2018-09-15 09:54 | Discharge Inst-Complex ---
PDI Med Rec & Follow Up Appt. New Medications: Cefdinir (Cefdinir) 300 Mg Capsule 300 MG PO BID, #10 CAP Iron,Carbonyl/Ascorbic Acid (Iron 100-Vitamin C Tablet) 1 Each Tablet 1 EACH PO UD, #90 TAB 1 Refill PT TO TAKE THREE TIMES A WEEK (DO NOT TAKE WITH CALCIUM TAB/MUTIVITAMIN OR MILK PRODUCTS) Azithromycin (Azithromycin) 250 Mg Tablet 250 MG PO DAILY, #3 TAB Triamcinolone Acetonide (Triamcinolone Acetonide 0.5% Cream) 15 Gm Cream..g. 1 GM TOP BID, #45 GM APPLY TO RASH ON CHEST/ABDOMEN AND BACK UNTIL HEALED, THEN USE NEEDED IF RASH REAPPEARS Continued Medications: Acetaminophen (Tylenol Arthritis) 650 Mg Tablet.er 650-1300 MG PO Q8H PRN for PAIN-MILD, TAB Amiodarone HCl (Amiodarone HCl) 200 Mg Tablet 200 MG PO DAILY, TAB Amlodipine Besylate (Amlodipine Besylate) 5 Mg Tablet 5 MG PO DAILY, TAB Aspirin (Aspirin EC) 81 Mg Tablet.dr 81 MG PO DAILY, TAB Atenolol (Atenolol) 50 Mg Tablet 50 MG PO DAILY, TAB Atorvastatin Calcium (Atorvastatin Calcium) 40 Mg Tablet 40 MG PO HS, TAB Cholecalciferol (Vitamin D3) (Vitamin D3) 5,000 Unit Tablet 5000 UNIT PO DAILY, TAB Fenofibrate (Fenofibrate) 160 Mg Tablet 160 MG PO DAILY, TAB L. Acidophilus/Bifid. Animalis (One-A-Day Trubiotics 2 Bill Cp) 1 Each Capsule 1 CAP PO DAILY, CAP Niacin (Niacin) 500 Mg Tablet 500 MG PO DAILY, TAB Tamsulosin HCl (Tamsulosin HCl) 0.4 Mg Cap.er.24h 0.4 MG PO HS, CAP Vit C/Vit E/Lutein/Min/[place]-3 (Ocuvite Softgel) 1 Each Capsule 1 CAP PO DAILY, CAP Prescription: Transmitted to Pharmacy Patient Instructions: 1WK FOLLOW UP WITH [facility] START THERAPY IN THE NEXT WEEK Activity, Diet and PDI Resume Normal Activity: Yes Discharge Diet: Other Diet (RENAL DIET - LOW PHOSPHORUS AND LOW POTASSIUM DIET) Drink 6-8 Glasses of Fluid/Day: Yes Driving Instructions: No Driving/Refer to Symptoms to Reoprt to : Appetite Changes, Bleeding Excessive, Fever Over 101 Degrees F, Pain/Pressure in Chest, Cough Up/Vomit Blood, Diarrhea(Persistant ), Nausea/Vomiting, Shortness of Breath For Problems or Questions: Contact Your Physician, Go to Emergency Room Infection Signs and Symptoms: Temperature Above 101 F ZAC GUPTA MD Sep 15, 2018 09:53
--- NOTE | 2018-09-15 10:42 | Physical Therapy Daily Note ---
PT Daily Note-Current Subjective Pt asleep in bed when PT arrived. Pt woken up by and encouraged to get up and walk. Pt agreed to PT. Pain Numeric Pain Scale: 0-No Pain Location: No Pain Reported Mental Status Patient Orientation: Confused Attachments: IV Transfers Functional [place] Measure 0=Not Assessed/NA 4=Minimal Assistance 1=Total Assistance 5=Supervision or Setup 2=Maximal Assistance 6=Modified [place] 3=Moderate Assistance 7=Complete IndependenceIRFPAI Quality Coding Scale 6 Independent with activity with or without an assistive device 5 Patient requires set up or clean up by helper. Patient completes activity by themselves 4 Supervision or touching assist (CGA). [place] provide cues , steadying assist 3 The helper provides less than half the effort to complete the activity 2 The helper provides more than half the effort to complete the activity 1 Dependent. The helper does all the effort to complete an activity 7 Patient refused to complete or attempt activity 9 The patient did not perform the activity before the current illness or injury 88 Not attempted due to Medical conditions or safety concerns Transfers (B, C, W/C) (FIM): 5 Scootin Rollin Supine to/from Sit: 5 Sit to/from Stand: 5 Weight Bearing Right Lower Extremity: Right Weight Bearing/Tolerated Left Lower Extremity: Left Weight Bearing/Tolerated Gait Training Gait (FIM): 5 Distance (FIM): 3=150 ft Distance: 300' Gait Level of Assist: 5 Gait Persons Needed: 1 Gait Assistive Device: FWW Assessment Pt ambulated for 300' with FWW requiring SBA. Patient is able to navigate hospital floor and maneuver walker around equipment throughout the floor. Pts reported that he will be discharged this morning. PT Hadoop Developer Goals Residential Goals PT Residential Goals Time Frame: Sep 20, 2018 Transfers (B,C,W/C) (FIM): 5 Gait (FIM): 5 Gait distance (FIM): 3=150 ft Distance: >150' Gait Level of Assist: 5 Gait Assistive Device: FWW PT Plan Problem List Problem List: Activity Tolerance, Functional Strength, Safety, Balance, Gait, Transfer, Bed Mobility Treatment/Plan Treatment Plan: Discontinue PT, goals met Treatment Plan: Bed Mobility, Education, Functional Activity [place]sen, Functional Strength, Gait, Safety, Therapeutic Exercise, Transfers Treatment Duration: Sep 20, 2018 Frequency: 6 times per week Estimated Hrs Per Day: .25 hour per day Patient and/or Family Agrees t: Yes Time/GCodes Time In: 937 Time Out: 948 Total Billed Treatment Time: 11 Total Billed Treatment 1 Visit FA - 11' LEE ANN VIRAMONTES PT Sep 15, 2018 10:42
[2018-09-15 11:58] VITALS: BP 147/82
--- NOTE | 2018-09-18 10:16 | Physician Query Clarification ---
PQ-Intro New Diagnosis Admission/Discharge Admission Date: Sep 13, 2018 at 06:34 Discharge Date: Sep 15, 2018 at 11:15 The medical record reflects the following clinical scenario: History/Risk Factors: Pneumonia, Acute on chronic renal failure stg 4, HTN, DM Clinical Findings: blood cultures - streptococcus pneumoniae 09/13 Treatment: Zithromycin, Cefdinir Question: What condition best reflects the above clinical scenario? Please document below. 1. Streptococcus pneumoniae septicemia present on admission 2. positive blood culture streptococcus pneumoniae no sepsis 3. Other, with explanation of the clinical findings. 4. Clinically undetermined, no explanation for the clinical findings. PHYSICIAN RESPONSE What condition reflects above: 2 In responding to this query, please exercise your independent professional judgment. The purpose of this communication is to more accurately reflect the complexity of your patients condition. The fact that a question is asked does not imply that any particular answer is desired or expected. Thank you for your timely response to this clarification. Requestors name: Josh THIS PHYSICIAN QUERY FORM IS A PERMANENT PART OF THE MEDICAL RECORD JOSH INFANTE Sep 18, 2018 10:16 ZAC GUPTA MD Sep 20, 2018 11:53
== END 2018-09-15 11:15 | disposition home or self-care (01) | DRG 194 ==
LOC: EDUNIT# 04:07 → ER 04:08 → 4TH 06:34
PROVIDERS: ADMIT Family Medicine; ATTEND Family Medicine
DX: J18.9 Pneumonia, unspecified organism (principal); N17.9 Acute kidney failure, unspecified; I12.9 Hypertensive chronic kidney disease with stage 1 through stage 4 chronic kidney disease, or unspecified chronic kidney disease; N18.4 Chronic kidney disease, stage 4 (severe); E86.0 Dehydration; R78.81 Bacteremia; I48.91 Unspecified atrial fibrillation; E78.00 Pure hypercholesterolemia, unspecified; H91.90 Unspecified hearing loss, unspecified ear; R29.6 Repeated falls; N40.0 Benign prostatic hyperplasia without lower urinary tract symptoms; M19.91 Primary osteoarthritis, unspecified site; E11.9 Type 2 diabetes mellitus without complications; R41.0 Disorientation, unspecified; R53.1 Weakness; D63.1 Anemia in chronic kidney disease; D50.9 Iron deficiency anemia, unspecified; A49.1 Streptococcal infection, unspecified site; Z96.653 Presence of artificial knee joint, bilateral; Z86.73 Personal history of transient ischemic attack (TIA), and cerebral infarction without residual deficits; Z87.442 Personal history of urinary calculi; Z87.09 Personal history of other diseases of the respiratory system
CPT/HCPCS: 36415; 51702; 70450; 71045; 71046; 80048; 80053; 81000; 82728; 83540; 83605; 83735; 83880; 84443; 84484; 85007; 85025; 85027; 85610; 85730; 87040; 87077; 87088; 87181; 87184; 87804; 93005; 93041; 96361; 96365; 96372

== ENCOUNTER 2019-12-13 22:55 | Inpatient (IN) | payer MEDICARE ==
[~2019-12-13] VITALS: Ht 182.9 cm; Wt 85.5 kg
[~2019-12-13 22:55] MED LIST changes: +ACET-2650 PO; -AMLO10TA6 PO; +AMLO10TA7 PO; -AMLO5TAB7 PO; +AMLO5TAB9 PO; +ASPI-983 PO; +AZIT250T12 PO; +CEFD300C3 PO; +CYAN-41 PO; -CYAN10006 PO; +DIGO125T3 PO; +ENLP5T PO; +GLIM4TAB3 PO; +IRON1TAB89 PO; +OCUVITE SOFTGE1 EACH PO; -RIVA15TA PO; +RIVA15TA2 PO; +TRIA15CR TOP; -VIT1CAPS9 PO; +[UNRECOGNIZED DRUG - OTHER] PO
[2019-12-13] MEDS ORDERED: NS IV 1000 ML 1,000 ML IV SCH (23:42)
[2019-12-13] MEDS ORDERED: RT-ALBUTEROL/IPRATROPIUM 3 ML (DUONEB) VIAL INH ONE (23:45)
[2019-12-13 23:53] LABS: BASOPHILS # (AUTO) 0.1 10^3/uL (0.0-0.1); BASOPHILS % (AUTO) 1 % (0-10); EOSINOPHILS # (AUTO) 0.3 10^3/uL (0.0-0.3); EOSINOPHILS % (AUTO) 5 % (0-10); HEMATOCRIT 34 % (40-54); HEMOGLOBIN 10.8 G/DL (13.3-17.7); LYMPHOCYTES # (AUTO) 1.6 X 10^3 (1.0-4.0); LYMPHOCYTES % (AUTO) 29 % (12-44); MEAN CORPUSCULAR HEMOGLOBIN 30 PG (25-34); MEAN CORPUSCULAR HGB CONC 32 G/DL (32-36); MEAN CORPUSCULAR VOLUME 94 FL (80-99); MEAN PLATELET VOLUME 10.7 FL (7.4-10.4); MONOCYTES # (AUTO) 1.1 X 10^3 (0.0-1.0); MONOCYTES % (AUTO) 20 % (0-12); NEUTROPHILS # (AUTO) 2.5 X 10^3 (1.8-7.8); NEUTROPHILS % (AUTO) 45 % (42-75); PLATELET COUNT 136 10^3/uL (130-400); RED CELL DISTRIBUTION WIDTH 15.2 % (10.0-14.5); WHITE BLOOD COUNT 5.5 10^3/uL (4.3-11.0)
[2019-12-14] VITALS (8 sets, daily range): BP systolic 133–188; BP diastolic 82–110
[2019-12-14 00:06] LABS: ALBUMIN 3.1 GM/DL (3.2-4.5); BILIRUBIN,TOTAL 0.9 MG/DL (0.1-1.0); CALCIUM 8.9 MG/DL (8.5-10.1); CREATININE SERUM 2.93 MG/DL (0.60-1.30); POTASSIUM 4.5 MMOL/L (3.6-5.0); TOTAL PROTEIN 6.3 GM/DL (6.4-8.2)
--- NOTE | 2019-12-14 00:11 | ED Respiratory ---
General Chief Complaint: Abdominal/GI Problems Stated Complaint: DIZZY,CONGESTED Source: patient, family, spouse Exam Limitations: no limitations History of Present Illness Date Seen by Provider: Dec 13, 2019 Time Seen by Provider: 23:38 Initial Comments Patient arrives the ER by private conveyance with his son and spouse and chief complaint for the past couple weeks she's had some progressively worsening cough sometimes productive of clear sputum. He's had some nausea vomiting and diarrhea. He's had poor appetite and has been more sleepy as of late. He is also for the past day been describing some dizziness. He does not like to go to doctors and has most recently followed with one of the practitioners at Dr. Jaya cunningham's office. He has no new medications. He has not seen anybody at his primary care office for the symptoms. Typically he will ignore his symptoms as long as possible until he becomes sick in his family will bring him to the doctor according to his . Allergies and Home Medications Allergies Coded Allergies: No Known Drug Allergies (Unverified , 01/14/17) Home Medications Acetaminophen 650 Mg Tablet.er, 650-1,300 MG PO Q8H PRN for PAIN-MILD, (Reported) Amiodarone HCl 200 Mg Tablet, 200 MG PO DAILY, (Reported) Amlodipine Besylate 5 Mg Tablet, 5 MG PO DAILY, (Reported) Aspirin 81 Mg Tablet.dr, 81 MG PO DAILY, (Reported) Atenolol 50 Mg Tablet, 50 MG PO DAILY, (Reported) Atorvastatin Calcium 40 Mg Tablet, 40 MG PO HS, (Reported) Azithromycin 250 Mg Tablet, 250 MG PO DAILY Prescribed by: ZAC GUPTA on 09/15/18950 Cefdinir 300 Mg Capsule, 300 MG PO BID Prescribed by: ZAC GUPTA on 09/15/18950 Cholecalciferol (Vitamin D3) 5,000 Unit Tablet, 5,000 UNIT PO DAILY, (Reported) Fenofibrate 160 Mg Tablet, 160 MG PO DAILY, (Reported) Iron,Carbonyl/Ascorbic Acid 1 Each Tablet, 1 EACH PO UD PT TO TAKE THREE TIMES A WEEK (DO NOT TAKE WITH CALCIUM TAB/MUTIVITAMIN OR MILK PRODUCTS) Prescribed by: ZAC GUPTA on 09/15/18950 L. Acidophilus/Bifid. Animalis 1 Each Capsule, 1 CAP PO DAILY, (Reported) Niacin 500 Mg Tablet, 500 MG PO DAILY, (Reported) Tamsulosin HCl 0.4 Mg Cap.er.24h, 0.4 MG PO HS, (Reported) Triamcinolone Acetonide 15 Gm Cream..g., 1 GM TOP BID APPLY TO RASH ON CHEST/ABDOMEN AND BACK UNTIL HEALED, THEN USE NEEDED IF RASH REAPPEARS Prescribed by: ZAC GUPTA on 09/15/18 0954 Vit C/Vit E/[place]/Min/[place]-3 1 Each Capsule, 1 CAP PO DAILY, (Reported) Patient Home Medication List Home Medication List Reviewed: Yes Review of Systems Review of Systems Constitutional: No chills; dizziness; No fever; weakness EENTM: No ear discharge, No ear pain Respiratory: cough, phlegm, short of breath; No wheezing Cardiovascular: No chest pain, No edema Gastrointestinal: No abdominal pain; diarrhea, nausea, vomiting Genitourinary: No decreased output, No discharge Musculoskeletal: No back pain, No joint pain Skin: No change in color, No pruritus, No rash Psychiatric/Neurological: Denies Headache, Denies Numbness, Denies Paresthesia All Other Systems Reviewed Negative Unless Noted: Yes Past Tdkqrga-Hvslxd-Kbfpjt Hx Patient Social History Alcohol Use: Denies Use Recreational Drug Use: No Smoking Status: Never a Smoker Type Used: Cigarettes Former Smoker, Quit: May 28, 1960 2nd Hand Smoke Exposure: No Recent Foreign Travel: No Contact w/Someone Who Travel: No Recent Hopitalizations: Yes (pneumonia) Physical Abuse: No Sexual Abuse: No Mistreated: No Fear: No Immunizations Up To Date Tetanus Booster (TDap): Less than 5yrs Date of Pneumonia Vaccine: Aug 13, 2018 Date of Influenza Vaccine: Aug 13, 2018 Seasonal Allergies Seasonal Allergies: No Past Medical History Surgeries: Yes (BILATERAL KNEE REPLACEMENTS) Appendectomy, Joint Replacement, Orthopedic Respiratory: Yes Chronic Bronchitis Currently Using CPAP: No Currently Using BIPAP: No Cardiac: Yes Atrial Fibrillation, High Cholesterol, Hypertension Neurological: Yes (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 0.0oz. [id number]; 25.7 BMI Method:Estimated General Appearance: WD/WN, no apparent distress Eyes: Bilateral Eye Normal Inspection, Bilateral Eye PERRL, Bilateral Eye EOMI HEENT: PERRL/EOMI, normal ENT inspection, TMs normal; No pharynx normal (oropharynx mucosa is dry) Neck: non-tender, full range of motion, supple, normal inspection Respiratory: chest non-tender, lungs clear, no respiratory distress, no access ory muscle use, decreased breath sounds Cardiovascular: normal peripheral pulses, regular rate, rhythm Gastrointestinal: normal bowel sounds, non tender, soft Extremities: normal range of motion, non-tender, normal inspection, no pedal edema, no calf tenderness, normal capillary refill Neurologic/Psychiatric: 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 II-XII nml as tested, no motor/sensory deficits, alert, normal mood/affect, oriented x 3 Skin: normal color, warm/dry Progress/Results/Core Measures Suspected Sepsis SIRS Temperature: Pulse: Respiratory Rate: Laboratory Tests 12/13/19 23:26: White Blood Count 5.5 Blood Pressure / Mean: Laboratory Tests 12/13/19 23:26: Creatinine 2.93H, Platelet Count 136, Total Bilirubin 0.9 Results/Orders Lab Results Laboratory Tests Test 12/13/19 23:26 12/14/19 01:34 Range/Units White Blood Count 5.5 4.3-11.0 10^3/uL Red Blood Count 3.58 L 4.35-5.85 10^6/uL Hemoglobin 10.8 L 13.3-17.7 G/DL Hematocrit 34 L 40-54 % Mean Corpuscular Volume 94 80-99 FL Mean Corpuscular Hemoglobin 30 25-34 PG Mean Corpuscular Hemoglobin Concent 32 32-36 G/DL Red Cell Distribution Width 15.2 H 10.0-14.5 % Platelet Count 136 130-400 10^3/uL Mean Platelet Volume 10.7 H 7.4-10.4 FL Neutrophils (%) (Auto) 45 42-75 % Lymphocytes (%) (Auto) 29 12-44 % Monocytes (%) (Auto) 20 H 0-12 % Eosinophils (%) (Auto) 5 0-10 % Basophils (%) (Auto) 1 0-10 % Neutrophils # (Auto) 2.5 1.8-7.8 X 10^3 Lymphocytes # (Auto) 1.6 1.0-4.0 X 10^3 Monocytes # (Auto) 1.1 H 0.0-1.0 X 10^3 Eosinophils # (Auto) 0.3 0.0-0.3 10^3/uL Basophils # (Auto) 0.1 0.0-0.1 10^3/uL Sodium Level 140 135-145 MMOL/L Potassium Level 4.5 3.6-5.0 MMOL/L Chloride Level 113 H 98-107 MMOL/L Carbon Dioxide Level 18 L 21-32 MMOL/L Anion Gap 9 5-14 MMOL/L Blood Urea Nitrogen 39 H 7-18 MG/DL Creatinine 2.93 H 0.60-1.30 MG/DL Estimat Glomerular Filtration Rate 21 BUN/Creatinine Ratio 13 Glucose Level 96 70-105 MG/DL Calcium Level 8.9 8.5-10.1 MG/DL Corrected Calcium 9.6 8.5-10.1 MG/DL Total Bilirubin 0.9 0.1-1.0 MG/DL Aspartate Amino Transf (AST/SGOT) 35 H 5-34 U/L Alanine Aminotransferase (ALT/SGPT) 21 0-55 U/L Alkaline Phosphatase 108 40-136 U/L Total Protein 6.3 L 6.4-8.2 GM/DL Albumin 3.1 L 3.2-4.5 GM/DL Urine Color YELLOW Urine Clarity CLEAR Urine pH 5.5 5-9 Urine Specific [place] 1.025 H 1.016-1.022 Urine Protein 2+ H NEGATIVE Urine Glucose (UA) NEGATIVE NEGATIVE Urine Ketones NEGATIVE NEGATIVE Urine Nitrite NEGATIVE NEGATIVE Urine Bilirubin NEGATIVE NEGATIVE Urine Urobilinogen 0.2 < = 1.0 MG/DL Urine Leukocyte Esterase 1+ H NEGATIVE Urine RBC (Auto) TRACE-I NEGATIVE Urine RBC 0-2 /HPF Urine WBC 10-25 H /HPF Urine Squamous Epithelial Cells 0-2 /HPF Urine Crystals NONE /LPF Urine Bacteria TRACE /HPF Urine Casts NONE /LPF Urine Mucus NEGATIVE /LPF Urine Culture Indicated YES Micro Results Microbiology 12/13/19 Influenza Types A,B Antigen (JUAN ALBERTO) - Final, Complete My Orders Orders - OLIVA FORRESTER Ed Iv/Invasive Line Start (12/13/19 23:42) Ns Iv 1000 Ml (Sodium Chloride 0.9%) (12/13/19 23:42) Ekg Tracing (12/13/19 23:42) Continuous Ekg Monitoring (12/13/19 23:42) Cbc With Automated Diff (12/13/19 23:42) Comprehensive Metabolic Panel (12/13/19 23:42) Ua Culture If Indicated (12/13/19 23:42) Influenza A And B Antigens (12/13/19 23:42) Albuterol/Ipra Inhalation Soln (Duoneb I (12/13/19 23:45) Svn Small Volume Nebulizer (12/13/19 23:42) Chest 1 View, Ap/Pa Only (12/14/19 00:01) Urine Culture (12/14/19 01:34) Ceftriaxone For Iv Use (Rocephin For I (12/14/19 02:00) Vital Signs/I&O Capillary Refill : Progress Note : Time: 00:12 Progress Note Nausea vomiting diarrhea and cough for the past week or so maybe consistent with viral illness. We'll get an influenza swab, labs urine, EKG chest x-ray give him a bag of fluids. Vital signs are aseptic. He is hard of hearing and somnolent but answers questions appropriately. NIH is 0. ECG Initial ECG Impression Date: Dec 14, 2019 Initial ECG Impression Time: 00:31 Initial ECG Rate: 95 Initial ECG Rhythm: A Fib/Flutter Initial ECG Intervals: QT Initial ECG Impression: Atrial Fibrillation Initial ECG Comparisson: Unchanged Comment Atrial fibrillation without ST elevation or depression. Prolonged QT interval. Diagnostic Imaging Diagonstic Imaging: Xray Plain Films/CT/US/NM/MRI: chest (1v) Comments Mildly prominent bronchial markings. No acute infiltrate. Reviewed: Reviewed by Me Departure Communication (Admissions) Time/Spoke to Admitting Phy: 02:10 Discussed case lab imaging and findings with Dr. Hickman, on-call and she agrees to accept the patient. SCDs, Lovenox, Tamiflu, Rocephin, etc. Impression Primary Impression: Influenza B Additional Impression: UTI (urinary tract infection) Qualified Codes: N30.00 - Acute cystitis without hematuria Disposition: 09 ADMITTED INPATIENT Condition: Stable Admissions Decision to Admit Reason: Admit from ER (General) Decision to Admit/Date: Dec 14, 2019 Time/Decision to Admit Time: 01:50 Departure-Patient Inst. Referrals: ZAC GUPTA MD (PCP/Family) Primary Care Physician OLIVA FORRESTER Dec 14, 2019 00:11
[2019-12-14 01:40] LABS: BILIRUBIN,URINE NEGATIVE (NEGATIVE); CLARITY,URINE CLEAR; COLOR,URINE YELLOW; GLUCOSE, URINE (UA) NEGATIVE (NEGATIVE); KETONES,URINE NEGATIVE (NEGATIVE); LEUKOCYTE ESTERASE ,URINE 1+ (NEGATIVE); NITRITE,URINE NEGATIVE (NEGATIVE); PH,URINE 5.5 (5-9); PROTEIN,URINE 2+ (NEGATIVE)
[2019-12-14 01:49] LABS: RBC,URINE 0-2 /HPF
[2019-12-14 01:50] LABS: BACTERIA,URINE TRACE /HPF; SQUAMOUS EPITHELIAL CELL,UR 0-2 /HPF
[2019-12-14] MEDS ORDERED: cefTRIAXone FOR IV USE 1,000 MG in WATER (STERILE) FOR INJECTION 10 ML IV ONE (02:00)
[2019-12-14] MEDS ORDERED: RT-ALBUTEROL/IPRATROPIUM 3 ML (DUONEB) VIAL ONE (02:27)
--- NOTE | 2019-12-14 02:37 | NUR ---
RECEIVED REPORT FROM ALEX TOBIN.
[2019-12-14] MEDS ORDERED: 1/2 NS IV SOLUTION 1,000 ML IV ONE (02:41)
[2019-12-14] MEDS ORDERED: hydrALAZINE (APESOLINE) 20 MG/ML VIAL IV ONE (03:15)
--- NOTE | 2019-12-14 03:25 | NUR ---
YVONNE ZHU admitted to room 415-1, with an admitting diagnosis of INFLUENZA B, UTI, on 12/14/[address] [facility] ER via [facility], accompanied by ER STAFF, , AND SON. YVONNE ZHU introduced to surroundings, call light, bed controls, phone, TV, temperature control, lights, meal times, smoking policy, visitor policy, side rail policy, bathrooms and showers. Patient Rights given to patient in the handbook. YVONNE ZHU verbalizes understanding that [facility] is not responsible for the loss or damage to any personal effects or valuables that are kept in the patients possession during their hospitalization. Patient and family were informed about the Rapid Response Team and its purpose.
[2019-12-14] MEDS: 1/2 NS IV SOLUTION 1,000 ML IV SCH ×2 (03:37→14:02)
[2019-12-14] MEDS ORDERED: ANTACID SUSP 30 ML UDC (MYLANTA) PO PRN (05:30)
[2019-12-14] MEDS ORDERED: ACETAMINOPHEN 500 MG TAB (TYLENOL) PO PRN (05:30)
[2019-12-14] MEDS ORDERED: LORazepam INJ 2 MG/ML (ATIVAN) VIAL IV PRN (05:30)
[2019-12-14 06:54] LABS: BASOPHILS % (AUTO) 1 % (0-10); EOSINOPHILS # (AUTO) 0.1 10^3/uL (0.0-0.3); EOSINOPHILS % (AUTO) 3 % (0-10); HEMATOCRIT 33 % (40-54); HEMOGLOBIN 10.6 G/DL (13.3-17.7); LYMPHOCYTES % (AUTO) 19 % (12-44); MEAN CORPUSCULAR HEMOGLOBIN 30 PG (25-34); MEAN CORPUSCULAR HGB CONC 32 G/DL (32-36); MEAN CORPUSCULAR VOLUME 95 FL (80-99); MEAN PLATELET VOLUME 10.6 FL (7.4-10.4); MONOCYTES # (AUTO) 1.1 X 10^3 (0.0-1.0); MONOCYTES % (AUTO) 20 % (0-12); NEUTROPHILS % (AUTO) 58 % (42-75); PLATELET COUNT 117 10^3/uL (130-400); RED CELL DISTRIBUTION WIDTH 15.3 % (10.0-14.5); WHITE BLOOD COUNT 5.3 10^3/uL (4.3-11.0)
[2019-12-14 07:14] LABS: ALBUMIN 2.9 GM/DL (3.2-4.5); BILIRUBIN,TOTAL 0.8 MG/DL (0.1-1.0); CALCIUM 8.8 MG/DL (8.5-10.1); CREATININE SERUM 2.77 MG/DL (0.60-1.30); POTASSIUM 4.1 MMOL/L (3.6-5.0); TOTAL PROTEIN 5.9 GM/DL (6.4-8.2)
--- NOTE | 2019-12-14 07:14 | Diagnostic Imaging Report ---
EXAM: CHEST 1 VIEW, AP/PA ONLY INDICATION: Dizziness. COMPARISON: 09/15/2018. FINDINGS: Normal heart size and central pulmonary vascularity. Bilateral pleural effusions, greater on the left, are new since prior exam. Calcified aorta. No pneumothorax. Airspace consolidation left lung base is also new. IMPRESSION: New airspace consolidation in the left lung base. There are also new bilateral pleural effusions, greater on the left. Dictated by: Dictated on workstation # [id number]
[2019-12-14] MEDS ORDERED: OSELTAMIVIR 30 MG (TAMIFLU) CAPSULE PO SCH (09:00)
[2019-12-14] MEDS ORDERED: amLODIPine 5 MG (NORVASC) TAB PO SCH (09:00)
[2019-12-14] MEDS ORDERED: ENOXAPARIN 40 MG/0.4 ML (LOVENOX) SYR SC SCH (09:00)
[2019-12-14] MEDS: AMIODARONE 200 MG (CORDARONE) TAB PO SCH (10:07)
[2019-12-14] MEDS: ASPIRIN 81 MG CHEW (CHILDREN'S ASA) PO SCH (10:07)
--- NOTE | 2019-12-14 11:13 | NUR ---
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 Family has asked for [facility] due to the proximity to their home in [place]. I confirmed the choice with the family and explained how skilled works. He will be getting PT/OT over the weekend and plan for discharge tomorrow.
--- NOTE | 2019-12-14 11:19 | NUR ---
SPOKE WITH THE PT'S SON AND (THEY HAD SOME MEDS BOTTLES WITH THEM) WELL GOING THRU THE EXT MED HISTORY AND CALLING [facility] TO COMPLETE THE MED REC. ALL BOTTLES WERE PAST DATE (LAST FILLED JUNE 2019) WHEN I ASKED THE FAMILY HOW HE TAKES HIS MEDS HIS SON WAS VERY HONEST AND SAID THE PT DOESNT TAKE THEM. PT'S WAS IN THE HOSPITAL [place] AND AT THAT POINT HE QUIT TAKING HIS MED (THEY THOUGHT IT WAS FOR ATTENTION) AND HE HAD NEVER STARTED THEM BACK UP. THOUGHT HE POSSIBLY STARTED TAKING A COUPLE HERE AND THERE OVER THE LAST FEW WEEKS BUT COULDNT TELL ME EXACTLY WHAT THEY WERE. FOR THESE REASONS I TOOK EVERYTHING OFF THAT HAD BEEN ON THE MED REC AND JUST LEFT THE OTC THAT HIS SAYS HE DOES TAKE DAILY. THE FOLLOWING MEDS ARE WHAT I HAVE TAKEN OFF THE MED REC (ALONG WITH LAST FILL DATES AND QTY): AMIODARONE 200MG 04-30-19 #7 AMLODIPINE 5MG 06-29-2019 #60 ATENOLOL 50MG 06-29-2019 #90 ATORVASTATIN 40MG 03-11-2019 #90 FENOFIBRATE 160MG 06-10-2019 #90 VITRON C 06-20-2019 #30 TAMSULOSIN 0.4MG 06-20-2019 #90 OTC MEDS THAT WERE TAKEN OFF THE MED REC DUE TO NOT TAKING: VIT D NIACIN PROBIOTIC OCUVITE OTC MEDS THAT WERE KEPT ON THE MED REC SINCE THE FAMILY SAYS HE DOES TAKE THEM: TYLENOL ASPIRIN
[2019-12-14] MEDS ORDERED: RT-ALBUTEROL SULF 2.5 MG/3 ML PRE-MIX VIAL INH PRN (12:00)
--- NOTE | 2019-12-14 12:14 | History & Physical-Hospitalist ---
History of Present Illness HPI/Chief Complaint Brien Franco is an a 84-year-old male with past medical history hypertension, CKD, BPH, who presented with weakness and cough. He is a poor historian. His and son are at the bedside. He reports that he has been living at home and usually walks with a cane. He has been moving around much less frequently lately. He has been more short of breath and coughing. He is been feeling more weak lately and spending much more time in bed. He had previously been following a Dr. Larsen's office but is now going to establish care with Dr. Hickman. Source: patient Exam Limitations: clinical condition Date Seen 12/14/19 Time Seen by a Provider: 10:00 Attending Physician Umm Hickman Holly A MD Referring Physician Date of Admission Dec 14, 2019 at 02:20 Home Medications & Allergies Home Medications Reviewed patient Home Medication Reconciliation performed by pharmacy medication reconciliations locate technician and/or nursing. Patients Allergies have been reviewed. Allergies Allergies Coded Allergies No Known Drug Allergies (Unverified01/14/17) Past Zsgnjpu-Trxhji-Sglngt Hx Past Med/Social Hx: Reviewed Nursing Past Med/Soc Hx Patient Social History Alcohol Use: Denies Use Recreational Drug Use: No Smoking Status: Never a Smoker Former Smoker, Quit: May 28, 1960 Type Used: Cigarettes 2nd Hand Smoke Exposure: No Recent Foreign Travel: No Contact w/other who traveled: No Recent Hopitalizations: Yes (pneumonia) Recent Infectious Disease Expo: No Immunizations Up To Date Tetanus Booster (TDap): Less than 5yrs Date of Pneumonia Vaccine: Aug 13, 2018 Date of Influenza Vaccine: Oct 13, 2020 Seasonal Allergies Seasonal Allergies: No Past Medical History Surgeries: Appendectomy, Joint Replacement, Orthopedic Currently Using CPAP: No Currently Using BIPAP: No Cardiac: Atrial Fibrillation, High Cholesterol, Hypertension Neurological: Stroke Reproductive: No Genitourinary: Benign Prostatic Hyperpl, Kidney Stones, Renal Failure Musculoskeletal: Arthritis Endocrine: Diabetes, Non-Insulin dep Loss of Vision: Denies Hearing Impairment: Hard of Hearing History of Blood Disorders: Yes (reports has seen plaster lather for low wbc's,no diagnosis) Family History Heart Disease, Cancer, Hypertension Review of Systems Constitutional: see HPI, weakness EENTM: no symptoms reported Respiratory: cough, short of breath Cardiovascular: no symptoms reported Gastrointestinal: no symptoms reported Genitourinary: no symptoms reported Musculoskeletal: no symptoms reported Skin: no symptoms reported Psychiatric/Neurological: No Symptoms Reported Physical Exam Physical Exam Vital Signs Vital Signs - First Documented 12/13/19 12/14/19 23:13 05:15 Temp 36.9 Pulse 107 Resp 20 B/P (MAP) 168/112 (130) Pulse Ox 99 O2 Delivery Room Air FiO2 21 Capillary Refill : Less Than 3 Seconds Height, Weight, BMI Height: 6'2.00" Weight: 200lbs. 0.0oz. 90.227501wn; 25.55 BMI Method:Estimated General Appearance: No Apparent Distress, Chronically ill HEENT: PERRL/EOMI, Pharynx Normal Neck: Normal Inspection, Supple Respiratory: Lungs Clear, Normal Breath Sounds, No Respiratory Distress Cardiovascular: Regular Rate, Rhythm, No Edema, No Murmur Gastrointestinal: Normal Bowel Sounds, Non Tender, Soft Extremity: Normal Inspection, Non Tender, No Pedal Edema Neurologic/Psychiatric: Alert, Disoriented Skin: Normal Color, Warm/Dry Results Results/Procedures Labs Laboratory Tests 12/13/19 23:26 12/14/19 06:20 Patient resulted labs reviewed. Imaging: Reviewed Imaging Report Assessment/Plan Admission Diagnosis viral sepsis due to influenza Admission Status: Inpatient Order (span 2 midnights) Reason for Inpatient Admission: influenza infection requiring supportive cares Assessment and Plan Viral sepsis Influenza B infection SIRS+ with tachycardia and tachypnea chest x-ray with left lower lobe consolidation Check procalcitonin afebrile, no leukocytosis Influenza swab positive for influenza B started on Tamiflu urinary tract infection UA consistent with UTI Started on ceftriaxone await urine culture CKD creatinine 2.77, appears to be at baseline Avoid nephrotoxins Continue to monitor atrial fibrillation Continue amiodarone Not on anticoagulation BPH Continue tamsulosin essential hypertension Amlodipine ordered Hydralazine as needed Possible dementia delirium avoid delirium triggers reorient as needed debility PT/OT May require prison facility on discharge DVT prophylaxis: Lovenox Diagnosis/Problems Diagnosis/Problems (1) Viral sepsis Status: Acute (2) Influenza B Status: Acute (3) Hypertension Status: Chronic Qualifiers: Hypertension type: essential hypertension Qualified Codes: I10 - Essential (primary) hypertension (4) BPH (benign prostatic hyperplasia) Status: Chronic Qualifiers: Lower urinary tract symptom presence: symptoms present Lower urinary tract symptom detail: nocturia Qualified Codes: N40.1 - Benign prostatic hyperplasi a with lower urinary tract symptoms; R35.1 - Nocturia (5) UTI (urinary tract infection) Status: Acute Qualifiers: Urinary tract infection type: acute cystitis Hematuria presence: without hematuria Qualified Codes: N30.00 - Acute cystitis without hematuria (6) Chronic renal failure Status: Chronic Qualifiers: Chronic kidney disease stage: stage 4 (severe) Qualified Codes: N18.4 - Chronic kidney disease, stage 4 (severe) Clinical Quality Measures DVT/VTE Risk/Contraindication: Risk Factor Score Per Nursin RFS Level Per Nursing on Admit: 3=High HERON CURTIS MD Dec 14, 2019 12:14
--- NOTE | 2019-12-14 14:25 | Physical Therapy Evaluation ---
PT Evaluation-General Medical Diagnosis Admission Date Dec 14, 2019 at 12:01 Medical Diagnosis: UTI/Influenza B Onset Date: Dec 14, 2019 Therapy Diagnosis Therapy Diagnosis: Deconditioning Height/Weight Height (Feet): 6 Height (Inches): 2.00 Weight (Pounds): 200 Weight (Ounces): 0.0 Precautions Precautions/Isolations: Droplet Isolation, Fall Prevention, Standard Precautions Weight Bear Status Right Lower Extremity: Right Weight Bearing/Tolerated Left Lower Extremity: Left Weight Bearing/Tolerated Referral Physician: Jenna Reason for Referral: Evaluation/Treatment Medical History Pertinent Medical History: Atrial Fib, Arthritis, CAD, COPD, DM, HTN, Renal Insufficiency Current History Patient presented to ER secondary to cough. Reviewed History: Yes Social History Home: Single Level Current Living Status: Spouse PT Steps Into Home: 0 PT Steps Inside Home: 0 Prior Prior Level of Function SCALE: Activities may be completed with or without assistive devices. 2-Dqjhlhoaak-ngogemr completes the activity by him/herself with no assistance from a helper. 5-Set-up or Clean-up Assistance-helper sets up or cleans up; patient completes activity. [place] assists only prior to or following the activity. 4-Supervision or Touching Assistance-helper provides verbal cues and/or touching/steadying and/or contact guard assistance as patient completes activity. Assistance may be provided throughout the activity or intermittently. 3-Partial/Moderate Assistance-helper does LESS THAN HALF the effort. [place] lifts, holds or supports trunk or limbs, but provides less than half the effort. 2-Substantial/Maximal Assistance-helper does MORE THAN HALF the effort. [place] lifts or holds trunk or limbs and provides more than half the effort. 7-Zlklcywyu-slqsrv does ALL the effort. Patient does none of the effort to complete the activity. Or, the assistance of 2 or more helpers is required for the patient to complete the activity. If activity was not attempted, code reason: 7-Patient Refused. 9-Not Applicable-not attempted and the patient did not perform the activity before the current illness, exacerbation or injury. 10-Not Attempted due to Environmental Limitations-(lack of equipment, weather restraints, etc.). 88-Not Attempted due to Medical Conditions or Safety Concerns. Bed Mobility: 6 Transfers (B,C,W/C): 6 Gait: 6 Indoor Mobility (Ambulation): Independent Prior Devices Use: Other-see list below Prior Device Use: Cane PT Evaluation-Current Subjective Patient declined walking at this time and wants to get back in bed after walking to the bathroom. Objective Patient Orientation: Normal For Age Attachments: IV ROM/Strength ROM Lower Extremities WFL BLE Strength Lower Extremities WFL BLE Integumentary/Posture Integumentary See nursing notes. Bowel Incontinence: No Bladder Incontinence: No Neuromuscular (Tone, Coordination, Reflexes) Grossly intact. Sensory Vision: Functional Hearing: Impaired Sensation Right Lower Extremit: Intact Sensation Left Lower Extremity: Intact Transfers Roll Left to Right (QC): 6 Sit to Lying (QC): 6 Lying to Sitting/Side of Bed(Q: 6 Sit to Stand (QC): 4 Toilet Transfer: 4 Gait Does the Patient Walk?: Yes Mode of Locomotion: Walk Anticipated Mode of Locomotion: Walk Walk 10 feet (QC): 4 Distance: 10' Gait Assistive Device: FWW Wheelchair Training Does the Pt Use a Wheelchair?: No Balance Sitting Static: Good Sitting Dynamic: Good Standing Static: Good Standing Dynamic: Good Assessment/Needs Patient was steady during ambulation of short distances. Patient refused walking further than bed to bathroom. Patient is impulsive and is hard of hearing. P atient will benefit from skilled therapy to improve strength and aid in reaching maximum LOF. Rehab Potential: Fair PT Senior Security Architect Goals Senior Security Architect Goals PT Detention Goals Time Frame: Dec 21, 2019 Roll Left & Right (QC): 6 Sit to Lying (QC): 6 Lying-Sitting on Side/Bed(QC): 6 Sit to Stand (QC): 6 Chair/Bhn-jh-Kxbtb Xfer(QC): 6 Does the Patient Walk: Yes Walk 10 feet (QC): 6 Walk 50ft with 2 Turns (QC): 6 Walk 150 ft (QC): 6 PT Plan Problem List Problem List: Activity Tolerance, Functional Strength, Safety, Balance, Gait, Transfer, Bed Mobility Treatment/Plan Treatment Plan: Continue Plan of Care Treatment Plan: Bed Mobility, Education, Functional Activity [place], Functional Strength, Gait, Safety, Therapeutic Exercise, Transfers Treatment Duration: Dec 21, 2019 Frequency: 6 times per week Estimated Hrs Per Day: .25 hour per day Patient and/or Family Agrees t: Yes Discharge Recommendations Therapy Discharge Recommendati: Home & Family Time/GCodes Time In: 1347 Time Out: 1357 Total Billed Treatment Time: 10 Total Billed Treatment 1 visit EVL 10 LEE ANN VIRAMONTES PT Dec 14, 2019 14:25
[2019-12-14] MEDS: RT-ALBUTEROL/IPRATROPIUM 3 ML (DUONEB) VIAL INH SCH ×3 (14:38→21:56)
--- NOTE | 2019-12-14 14:55 | Occupational Therapy Eval ---
OT Evaluation-General/PLF Medical Diagnosis Admission Date Dec 14, 2019 at 12:01 Medical Diagnosis: UTI/Influenza B Onset Date: Dec 14, 2019 Therapy Diagnosis Therapy Diagnosis: Decreased ADL function Height/Weight Height (Feet): 6 Height (Inches): 2.00 Weight (Pounds): 200 Weight (Ounces): 0.0 Precautions Precautions/Isolations: Droplet Isolation, Fall Prevention, Standard Precautio ns Safety Interventions: Bed Exit Alarm, Reorient-PRN Weight Bear Status Weight Bearing Restriction: Weight Bearing/Tolerated Referral Physician: Jenna Referral Reason: Activity Tolerance, Self Care, Evaluation/Treatment, Strengthening/ROM Medical History Pertinent Medical History: Atrial Fib, Arthritis, CAD, COPD, DM, HTN, Renal Insufficiency Current History Pt experiencing SOB/ cough/ weakness- UTI with Influenza B dx. Reviewed History: Yes Social History Home: Single Level Current Living Status: Spouse Steps Into Home: 0 Steps Inside Home: 0 ADL-Prior Level of Function SCALE: Activities may be completed with or without assistive devices. 9-Javimzvadc-vmberfw completes the activity by him/herself with no assistance from a helper. 5-Set-up or Clean-up Assistance-helper sets up or cleans up; patient completes activity. [place] assists only prior to or following the activity. 4-Supervision or Touching Assistance-helper provides verbal cues and/or touching/steadying and/or contact guard assistance as patient completes activity. Assistance may be provided throughout the activity or intermittently. 3-Partial/Moderate Assistance-helper does LESS THAN HALF the effort. [place] lifts, holds or supports trunk or limbs, but provides less than half the effort. 2-Substantial/Maximal Assistance-helper does MORE THAN HALF the effort. [place] lifts or holds trunk or limbs and provides more than half the effort. 1-Kphbzypyo-fwlmkf does ALL the effort. Patient does none of the effort to complete the activity. Or, the assistance of 2 or more helpers is required for the patient to complete the activity. If activity was not attempted, code reason: 7-Patient Refused. 9-Not Applicable-not attempted and the patient did not perform the activity before the current illness, exacerbation or injury. 10-Not Attempted due to Environmental Limitations-(lack of equipment, weather restraints, etc.). 88-Not Attempted due to Medical Conditions or Safety Concerns. ADL PLOF Comments Unable to gather information as pt confused/ impulsive. Based on living situation with , pt was fairly IND. Self Care: Needed Some Help Functional Cognition: Needed Some Help Occupation: retired. OT Current Status Subjective Pt seen in bed, attempting to leave bed. Bed alarm going off, pt's BLE sitting on bed rail. Pt educated on OT entry and assist. Pt agrees. Mental Status/Objective Patient Orientation: Person, Confused, Unable to Assess Attachments: IV Current Did not test. Based on ADLs, pt's strength decreased but within functional ham its ADL-Treatment Eating (QC): 7 (Denies eating) Upper Body Dressing (QC): 5 (s/u gown) Toileting Hygiene (QC): 3 (CGA in stance, min A thoroughness.) Other Treatments Pt seen in bed, pt completes bed mob with SBA/ increased time. Pt stands with walker, utilizes walker with min cues to maintain on floor. Pt utilizes toilet/ has BM. Sits in bed, pt impulsive/ very [place]. Pt bed mob from sit to supine SBA. Pt requires TD for scooting up in bed. Pt educated on roles, all needs met, call light in reach, bed alarm set. Education OT Patient Education: Modified ADL techniques, Purpose of tx/functional activities, Safety issues Teaching Recipient: Patient Teaching Methods: Discussion Response to Teaching: Verbalize Understanding, Return Demonstration OT [facility] Goals [facility] Nurse Goals Time Frame: Dec 21, 2019 Eating (QC): 6 Oral Hygiene (QC): 6 Toileting Hygiene (QC): 6 Shower/Bathe Self (QC): 6 Upper Body Dressing (QC): 6 Lower Body Dressing (QC): 6 On/Off Footwear (QC): 6 Additional Goals: 1-Demonstrate ADL Tasks, 2-Verbalize Understanding, 3- ImproveStrength/[place]sen 1=Demonstrate adherence to instructed precautions during ADL tasks. 2=Patient will verbalize/demonstrate understanding of assistive devices/modifications for ADL. 3=Patient will improve strength/tolerance for activity to enable patient to perform ADL's. OT Education/Plan Problem List/Assessment Assessment: Decreased Activ Tolerance, Decreased Safety Aware, Decreased UE Strength, Dependent Transfers, Impaired Funct Balance, Impaired I ADL's, Impaired Self-Care Skills Discharge Recommendations Plan/Recommendations: Continue POC Treatment Plan/Plan of Care Treatment,Training & Education: Yes Patient would benefit from OT for education, treatment and training to promote independence in ADL's, mobility, safety and/or upper extremity function for ADL's. Plan of Care: ADL Retraining, Caregiver Training, Functional Mobility, UE Funct Exercise/Act Treatment Duration: Dec 21, 2019 Frequency: 5 times per week Estimated Hrs Per Day: .25 hour per day Agreement: Yes Rehab Potential: Fair Time/GCodes Start Time: 13:35 Stop Time: 13:58 Total Time Billed (hr/min): 23 Billed Treatment Time 1, EVM, ADL (23) SUZI MCADAMS OTR Dec 14, 2019 14:55
[2019-12-14] MEDS: TAMSULOSIN 0.4 MG (FLOMAX) CAP PO SCH (17:43)
[2019-12-15] MEDS: 1/2 NS IV SOLUTION 1,000 ML IV SCH ×2 (00:06→09:59)
[2019-12-15 00:23] VITALS: BP 132/65
[2019-12-15] MEDS ORDERED: cefTRIAXone 1,000 MG/SWFI 10 ML IV PUSH IV SCH ×2 (02:00)
[2019-12-15] MEDS: RT-ALBUTEROL/IPRATROPIUM 3 ML (DUONEB) VIAL INH SCH ×4 (02:44→19:28)
[2019-12-15 04:00] VITALS: BP 186/86
[2019-12-15 05:47] LABS: BASOPHILS % (AUTO) 0 % (0-10); EOSINOPHILS # (AUTO) 0.1 10^3/uL (0.0-0.3); EOSINOPHILS % (AUTO) 2 % (0-10); HEMATOCRIT 31 % (40-54); HEMOGLOBIN 9.7 G/DL (13.3-17.7); LYMPHOCYTES # (AUTO) 0.9 X 10^3 (1.0-4.0); LYMPHOCYTES % (AUTO) 20 % (12-44); MEAN CORPUSCULAR HEMOGLOBIN 30 PG (25-34); MEAN CORPUSCULAR HGB CONC 32 G/DL (32-36); MEAN CORPUSCULAR VOLUME 94 FL (80-99); MEAN PLATELET VOLUME 10.6 FL (7.4-10.4); MONOCYTES # (AUTO) 0.9 X 10^3 (0.0-1.0); MONOCYTES % (AUTO) 20 % (0-12); NEUTROPHILS # (AUTO) 2.6 X 10^3 (1.8-7.8); NEUTROPHILS % (AUTO) 57 % (42-75); PLATELET COUNT 92 10^3/uL (130-400); RED CELL DISTRIBUTION WIDTH 15.1 % (10.0-14.5); WHITE BLOOD COUNT 4.5 10^3/uL (4.3-11.0)
[2019-12-15 06:01] LABS: CALCIUM 8.3 MG/DL (8.5-10.1); CREATININE SERUM 2.68 MG/DL (0.60-1.30); POTASSIUM 4.3 MMOL/L (3.6-5.0)
[2019-12-15] MEDS ORDERED: ONDANSETRON 4 MG (ZOFRAN) ORAL DISSOLVE TAB PO PRN (07:00)
[2019-12-15] MEDS ORDERED: ACETAMINOPHEN 325 MG TABLET PO PRN (07:00)
[2019-12-15] MEDS ORDERED: ONDANSETRON 4 MG/2 ML (SDV) Z0FRAN IVP PRN (07:00)
[2019-12-15] MEDS ORDERED: MELATONIN 3 MG TABLET PO PRN (07:00)
[2019-12-15 08:00] VITALS: BP 141/61
[2019-12-15] MEDS: AMIODARONE 200 MG (CORDARONE) TAB PO SCH (09:56)
[2019-12-15] MEDS: ASPIRIN 81 MG CHEW (CHILDREN'S ASA) PO SCH (09:56)
[2019-12-15] MEDS: OSELTAMIVIR 30 MG (TAMIFLU) CAPSULE PO SCH (09:56)
[2019-12-15] MEDS: amLODIPine 10 MG (NORVASC) TAB PO SCH (09:57)
[2019-12-15] MEDS: ENOXAPARIN 30 MG/0.3 ML (LOVENOX) SYR SC SCH (09:57)
--- NOTE | 2019-12-15 10:57 | Progress Note - Hospitalist ---
Subjective HPI/CC On Admission Date Seen by Provider: Dec 15, 2019 Time Seen by Provider: 09:10 Brien Franco is an a 84-year-old male with past medical history hypertension, CKD, BPH, who presented with weakness and cough. He is a poor historian. His and son are at the bedside. He reports that he has been living at home and usually walks with a cane. He has been moving around much less frequently lately. He has been more short of breath and coughing. He is been feeling more weak lately and spending much more time in bed. He had previously been following a Dr. Larsen's office but is now going to establish care with Dr. Hickman. Subjective/Events-last exam He is sitting in his bedside chair today. He is alert and oriented. He denies any fevers or chills. He denies any shortness of breath. He denies any pain. He has no complaints or concerns at this time. Objective Exam Vital Signs Vital Signs Date Time Temp Pulse Resp B/P (MAP) Pulse Ox O2 Delivery O2 Flow Rate FiO2 12/15/19 09:46 92 Room Air 12/15/19 08:00 37.1 95 20 141/61 (87) 12/14/19 11:43 21 Capillary Refill : Less Than 3 Seconds General Appearance: No Apparent Distress, Chronically ill HEENT: PERRL/EOMI, Pharynx Normal Neck: Normal Inspection, Supple Respiratory: Lungs Clear, Normal Breath Sounds, No Respiratory Distress Cardiovascular: Regular Rate, Rhythm, No Edema, No Murmur Gastrointestinal: Normal Bowel Sounds, Non Tender, Soft Extremity: Normal Inspection, Non Tender, No Pedal Edema Neurologic/Psychiatric: Alert, Oriented x3, No Motor/Sensory Deficits, Normal Mood/Affect Skin: Normal Color, Warm/Dry Results/Procedures Lab Laboratory Tests 12/15/19 05:23 Patient resulted labs reviewed. Imaging: Reviewed Imaging Report Assessment/Plan Assessment and Plan Assess & Plan/Chief Complaint Influenza B infection Continue Tamiflu Urinary tract infection Complete course of Omnicef CKD creatinine 2.68, appears to be at baseline Avoid nephrotoxins Continue to monitor atrial fibrillation Continue amiodarone Not on anticoagulation BPH Continue tamsulosin essential hypertension Increase Amlodipine Hydralazine as needed Possible dementia delirium avoid delirium triggers reorient as needed debility Continue PT/OT Will likely require [facility]ci facility on discharge DVT prophylaxis: Lovenox Viral sepsis, resolved Diagnosis/Problems Diagnosis/Problems (1) Viral sepsis Status: Acute (2) Influenza B Status: Acute (3) Hypertension Status: Chronic Qualifiers: Hypertension type: essential hypertension Qualified Codes: I10 - Essential (primary) hypertension (4) BPH (benign prostatic hyperplasia) Status: Chronic Qualifiers: Lower urinary tract symptom presence: symptoms present Lower urinary tract symptom detail: nocturia Qualified Codes: N40.1 - Benign prostatic hyperplasia with lower urinary tract symptoms; R35.1 - Nocturia (5) UTI (urinary tract infection) Status: Acute Qualifiers: Urinary tract infection type: acute cystitis Hematuria presence: without hematuria Qualified Codes: N30.00 - Acute cystitis without hematuria (6) Chronic renal failure Status: Chronic Qualifiers: Chronic kidney disease stage: stage 4 (severe) Qualified Codes: N18.4 - Chronic kidney disease, stage 4 (severe) Clinical Quality Measures DVT/VTE Risk/Contraindication: Risk Factor Score Per Nursin RFS Level Per Nursing on Admit: 3=High HREON CURTIS MD Dec 15, 2019 10:56
[2019-12-15 12:00] VITALS: BP 162/93
[2019-12-15 16:00] VITALS: BP 106/55
[2019-12-15] MEDS: TAMSULOSIN 0.4 MG (FLOMAX) CAP PO SCH (17:32)
[2019-12-15] MEDS: CEFDINIR 300 MG (OMNICEF) CAP PO SCH (20:41)
[2019-12-15 23:48] VITALS: BP 148/97
[2019-12-16] MEDS: 1/2 NS IV SOLUTION 1,000 ML IV SCH ×2 (02:14→18:03)
[2019-12-16] MEDS: RT-ALBUTEROL/IPRATROPIUM 3 ML (DUONEB) VIAL INH SCH ×2 (03:31→09:44)
--- NOTE | 2019-12-16 06:11 | NUR ---
ASSISTED PT TO THE [facility] A COUPLE OF TIMES TONIGHT. PT TRANSFERRED WELL W X1 ASSIST
[2019-12-16 08:00] VITALS: BP 159/63
[2019-12-16 09:44] VITALS: BP 148/97
[2019-12-16] MEDS: amLODIPine 10 MG (NORVASC) TAB PO SCH (09:55)
[2019-12-16] MEDS: ENOXAPARIN 30 MG/0.3 ML (LOVENOX) SYR SC SCH (09:56)
[2019-12-16] MEDS: ASPIRIN 81 MG CHEW (CHILDREN'S ASA) PO SCH (09:56)
[2019-12-16] MEDS: OSELTAMIVIR 30 MG (TAMIFLU) CAPSULE PO SCH (09:56)
[2019-12-16] MEDS: CEFDINIR 300 MG (OMNICEF) CAP PO SCH ×2 (09:56→21:05)
[2019-12-16] MEDS: AMIODARONE 200 MG (CORDARONE) TAB PO SCH (09:56)
--- NOTE | 2019-12-16 13:30 | Progress Note - Hospitalist ---
Subjective HPI/CC On Admission Date Seen by Provider: Dec 16, 2019 Time Seen by Provider: 10:10 Brien Franco is an a 84-year-old male with past medical history hypertension, CKD, BPH, who presented with weakness and cough. He is a poor historian. His and son are at the bedside. He reports that he has been living at home and usually walks with a cane. He has been moving around much less frequently lately. He has been more short of breath and coughing. He is been feeling more weak lately and spending much more time in bed. He had previously been following a Dr. Larsen's office but is now going to establish care with Dr. Hickman. Subjective/Events-last exam He reports no complaints or concerns this morning. He is feeling much better. He is still feeling weak. He denies any chest pain or shortness of breath. He denies any fevers or chills. His is at the bedside. Objective Exam Vital Signs Vital Signs Date Time Temp Pulse Resp B/P (MAP) Pulse Ox O2 Delivery O2 Flow Rate FiO2 12/16/19 09:44 37.2 96 95 12/16/19 09:44 Room Air 12/16/19 08:00 18 159/63 (95) 12/14/19 11:43 21 Capillary Refill : Less Than 3 Seconds General Appearance: No Apparent Distress, WD/WN Respiratory: Lungs Clear, Normal Breath Sounds, No Respiratory Distress Cardiovascular: Regular Rate, Rhythm, No Edema, No Murmur Gastrointestinal: Normal Bowel Sounds, Non Tender, Soft Extremity: Normal Inspection, Non Tender, Pedal Edema Neurologic/Psychiatric: Alert, Oriented x3, Other (hearing difficulty) Results/Procedures Lab Patient resulted labs reviewed. Assessment/Plan Assessment and Plan Assess & Plan/Chief Complaint Influenza B infection Continue Tamiflu Urinary tract infection Complete course of Omnicef CKD creatinine appears to be at baseline Avoid nephrotoxins Continue to monitor atrial fibrillation Continue amiodarone Not on anticoagulation BPH Continue tamsulosin essential hypertension continue Amlodipine Hydralazine as needed debility Continue PT/OT planning to discharge to [facility] DVT prophylaxis: Lovenox Viral sepsis, resolved Diagnosis/Problems Diagnosis/Problems (1) Viral sepsis Status: Resolved Resolution Date/Time: 12/16/19 @ 13:30 (2) Influenza B Status: Acute (3) Hypertension Status: Chronic Qualifiers: Hypertension type: essential hypertension Qualified Codes: I10 - Essential (primary) hypertension (4) BPH (benign prostatic hyperplasia) Status: Chronic Qualifiers: Lower urinary tract symptom presence: symptoms present Lower urinary tract symptom detail: nocturia Qualified Codes: N40.1 - Benign prostatic hyperplasia with lower urinary tract symptoms; R35.1 - Nocturia (5) UTI (urinary tract infection) Status: Acute Qualifiers: Urinary tract infection type: acute cystitis Hematuria presence: without hematuria Qualified Codes: N30.00 - Acute cystitis without hematuria (6) Chronic renal failure Status: Chronic Qualifiers: Chronic kidney disease stage: stage 4 (severe) Qualified Codes: N18.4 - Chronic kidney disease, stage 4 (severe) (7) Debility Status: Acute Clinical Quality Measures DVT/VTE Risk/Contraindication: Risk Factor Score Per Nursin RFS Level Per Nursing on Admit: 3=High HERON CURTIS MD Dec 16, 2019 13:30
[2019-12-16 16:00] VITALS: BP 112/61
[2019-12-16] MEDS: TAMSULOSIN 0.4 MG (FLOMAX) CAP PO SCH (18:03)
--- NOTE | 2019-12-16 21:05 | NUR ---
[facility] [facility] IS NOT REGISTERING THE ID NUMBER TO BE SCANNED.
[2019-12-17] VITALS: BP 136/76
[2019-12-17 06:44] LABS: HEMOGLOBIN 9.3 G/DL (13.3-17.7); MEAN PLATELET VOLUME 10.9 FL (7.4-10.4); WHITE BLOOD COUNT 3.2 10^3/uL (4.3-11.0)
[2019-12-17 06:55] LABS: CALCIUM 8.2 MG/DL (8.5-10.1); CREATININE SERUM 3.17 MG/DL (0.60-1.30); POTASSIUM 4.9 MMOL/L (3.6-5.0)
[2019-12-17 08:00] VITALS: BP 136/83
[2019-12-17] MEDS: amLODIPine 10 MG (NORVASC) TAB PO SCH (10:00)
[2019-12-17] MEDS: OSELTAMIVIR 30 MG (TAMIFLU) CAPSULE PO SCH (10:00)
[2019-12-17] MEDS: ASPIRIN 81 MG CHEW (CHILDREN'S ASA) PO SCH (10:00)
[2019-12-17] MEDS: CEFDINIR 300 MG (OMNICEF) CAP PO SCH (10:01)
[2019-12-17] MEDS: ENOXAPARIN 30 MG/0.3 ML (LOVENOX) SYR SC SCH (10:01)
[2019-12-17] MEDS: AMIODARONE 200 MG (CORDARONE) TAB PO SCH (10:01)
[2019-12-17] MEDS ORDERED: TMSL.4C PO (10:29)
[2019-12-17] MEDS ORDERED: CEFD300C3 PO (10:29)
[2019-12-17] MEDS ORDERED: AMLO10TA7 PO (10:29)
[2019-12-17] MEDS ORDERED: OSEL30CA PO (10:29)
[2019-12-17] MEDS ORDERED: AMIO200T4 PO (10:29)
--- NOTE | 2019-12-17 10:29 | NUR ---
FINAL DISCHARGE PLAN: Patient has been accepted to [facility] for SKILLED care. Care assessment to by done by AMY Myrick. Plan is for 1 pm pick-up.
--- NOTE | 2019-12-17 10:32 | Discharge Inst-Skilled Nursing ---
Discharge Inst-Skilled NF Reconcile Patient Problems Problems Reviewed?: Yes Chief Complaint Brien Franco is an a 84-year-old male with past medical history hypertension, CKD, BPH, who presented with weakness and cough. He is a poor historian. His and son are at the bedside. He reports that he has been living at home and usually walks with a cane. He has been moving around much less frequently lately. He has been more short of breath and coughing. He is been feeling more weak lately and spending much more time in bed. He had previously been following a Dr. Larsen's office but is now going to establish care with Dr. Hickman. Consult/Follow Up/Orders Follow Up Appt.: Please follow up with Dr Hickman in the next week to follow up this hospital stay. Skilled NF Admit to: [facility] Certification (SNF) I certify that SNF services are required to be given on an inpatient basis because of the above named patient's need for senior living care on a continuing basis for the conditions(s) for which he/she was receiving inpatient hospital services prior to his/her transfer to the SNF. [facility] Facility Order: Nursing Services, Maintenance Tech-Evaluate & Treat, Physical Therapy-Evaluate & Treat Oxygen Delivery Method: Room Air Discharge Diet: No Restrictions Daily Activity as Tolerated: Yes Resuscitation Status: Do Not Resuscitate New & Resume Previous Orders Diallo Mehta Dec 17, 2019 10:11 Pneu Vac Indicated: Yes DIALLO MEHTA MD Dec 17, 2019 10:13
--- NOTE | 2019-12-17 10:33 | Discharge Summary ---
Diagnosis/Chief Complaint Date of Admission Dec 14, 2019 at 12:01 Date of Discharge Discharge Date: Dec 17, 2019 Admission Diagnosis viral sepsis due to influenza Primary Care Rosalinda Larsen MD Discharge Diagnosis (1) Viral sepsis Status: Resolved (2) Influenza B Status: Acute (3) Hypertension Status: Chronic (4) BPH (benign prostatic hyperplasia) Status: Chronic (5) UTI (urinary tract infection) Status: Acute (6) Chronic renal failure Status: Chronic (7) Debility Status: Acute Discharge Summary Discharge Physical Exam Allergies: Coded Allergies: No Known Drug Allergies (Unverified , 01/14/17) Vitals & I&Os Vital Signs Date Time Temp Pulse Resp B/P (MAP) Pulse Ox O2 Delivery O2 Flow Rate FiO2 12/17/19 00:00 36.6 84 18 136/76 (96) 98 Room Air 12/14/19 11:43 21 Hospital Course Labs (last 24 hrs) Laboratory Tests 12/17/19 06:05: White Blood Count 3.2L, Red Blood Count 3.08L, Hemoglobin 9.3L, Hematocrit 29L, Mean Corpuscular Volume 95, Mean Corpuscular Hemoglobin 30, Mean Corpuscular Hemoglobin Concent 32, Red Cell Distribution Width 15.0H, Platelet Count 98L, Mean Platelet Volume 10.9H, Sodium Level 136, Potassium Level 4.9, Chloride Level 112H, Carbon Dioxide Level 18L, Anion Gap 6, Blood Urea Nitrogen 43H, Creatinine 3.17#H, Estimat Glomerular Filtration Rate 19, BUN/Creatinine Ratio 14, Glucose Level 92, Calcium Level 8.2L Microbiology 12/14/19 Urine Culture - Final, Complete 3 or more isolates 12/13/19 Influenza Types A,B Antigen (JUAN ALBERTO) - Final, Complete Patient resulted labs reviewed. Pending Labs Laboratory Tests 12/17/19 06:05: White Blood Count 3.2, Red Blood Count 3.08, Hemoglobin 9.3, Hematocrit 29, Mean Corpuscular Volume 95, Mean Corpuscular Hemoglobin 30, Mean Corpuscular Hemoglobin Concent 32, Red Cell Distribution Width 15.0, Platelet Count 98, Mean Platelet Volume 10.9, Sodium Level 136, Potassium Level 4.9, Chloride Level 112, Carbon Dioxide Level 18, Anion Gap 6, Blood Urea Nitrogen 43, Creatinine 3.17, Estimat Glomerular Filtration Rate 19, BUN/Creatinine Ratio 14, Glucose Level 92, Calcium Level 8.2 Discharge Home Medications: Active Scripts Active Amlodipine Besylate 10 Mg Tablet 10 Mg PO DAILY Amiodarone HCl 200 Mg Tablet 200 Mg PO DAILY Flomax (Tamsulosin HCl) 0.4 Mg Cap 0.4 Mg PO DAILY@1800 Tamiflu (Oseltamivir Phosphate) 30 Mg Capsule 30 Mg PO DAILY Cefdinir 300 Mg Capsule 300 Mg PO BID Reported Tylenol Arthritis (Acetaminophen) 650 Mg Tablet.er 650-1,300 Mg PO Q8H PRN Aspirin EC (Aspirin) 81 Mg Tablet.dr 81 Mg PO DAILY Instructions to patient/family Please see electronic discharge instructions given to patient. Clinical Quality Measures DVT/VTE Risk/Contraindication: Risk Factor Score Per Nursin RFS Level Per Nursing on Admit: 3=High Problem Qualifiers (1) Hypertension: Hypertension type: essential hypertension Qualified Codes: I10 - Essential (primary) hypertension (2) BPH (benign prostatic hyperplasia): Lower urinary tract symptom presence: symptoms present Lower urinary tract symptom detail: nocturia Qualified Codes: N40.1 - Benign prostatic hyperplasia with lower urinary tract symptoms; R35.1 - Nocturia (3) UTI (urinary tract infection): Urinary tract infection type: acute cystitis Hematuria presence: without hematuria Qualified Codes: N30.00 - Acute cystitis without hematuria (4) Chronic renal failure: Chronic kidney disease stage: stage 4 (severe) Qualified Codes: N18.4 - Chronic kidney disease, stage 4 (severe) DIALLO ACUNA MD Dec 17, 2019 10:33
--- NOTE | 2019-12-17 11:25 | NUR ---
Important Message from Medicare presented, reviewed, signed and placed in patient chart. Patient and voiced no intention to appeal and deny any needs or further questions at this time.
[2019-12-17 14:50] VITALS: BP 136/83
--- NOTE | 2019-12-17 15:46 | NUR ---
CARE assessment completed and faxed to [facility] and [facility] in [place].
== END 2019-12-17 14:53 | DRG 872 ==
LOC: EDUNIT# 22:55 → ER 22:59 → 4TH 12-14 02:20 → OBSVTOIN 12-14 12:01
PROVIDERS: ADMIT Internal Medicine; ATTEND Internal Medicine
DX: A41.89 Other specified sepsis (principal); N30.00 Acute cystitis without hematuria; N18.4 Chronic kidney disease, stage 4 (severe); J10.1 Influenza due to other identified influenza virus with other respiratory manifestations; J10.2 Influenza due to other identified influenza virus with gastrointestinal manifestations; I12.9 Hypertensive chronic kidney disease with stage 1 through stage 4 chronic kidney disease, or unspecified chronic kidney disease; Z66 Do not resuscitate; N40.1 Benign prostatic hyperplasia with lower urinary tract symptoms; R35.1 Nocturia; J42 Unspecified chronic bronchitis; I48.91 Unspecified atrial fibrillation; E78.00 Pure hypercholesterolemia, unspecified; E11.22 Type 2 diabetes mellitus with diabetic chronic kidney disease; Z86.73 Personal history of transient ischemic attack (TIA), and cerebral infarction without residual deficits; M19.91 Primary osteoarthritis, unspecified site; R41.0 Disorientation, unspecified; F03.90 Unspecified dementia, unspecified severity, without behavioral disturbance, psychotic disturbance, mood disturbance, and anxiety; R53.81 Other malaise; Z87.891 Personal history of nicotine dependence; Z96.653 Presence of artificial knee joint, bilateral; Z87.01 Personal history of pneumonia (recurrent)
CPT/HCPCS: 36415; 71045; 80048; 80053; 81000; 82607; 82728; 82746; 83540; 84145; 85025; 85027; 87088; 87804; 93005; 94640; 94760; 96374; 96375; G0378

== ENCOUNTER 2019-12-29 22:56 | Inpatient (IN) | payer MEDICARE ==
[~2019-12-29] VITALS: Ht 182.9 cm; Wt 103.8 kg
[~2019-12-29 22:56] MED LIST changes: -GLIM4TAB3 PO; +GLIM4TAB5 PO; +OSEL30CA PO
[2019-12-29 23:00] VITALS: BP 140/71
[2019-12-29 23:15] VITALS: BP 154/91
[2019-12-29 23:30] VITALS: BP 140/76
[2019-12-29 23:45] VITALS: BP 140/74
[2019-12-29 23:48] VITALS: BP 154/91
[2019-12-30] VITALS: BP 146/72
[2019-12-30] MEDS ORDERED: ONDANSETRON 4 MG/2 ML (SDV) Z0FRAN IVP PRN (00:15)
[2019-12-30] MEDS ORDERED: ONDANSETRON 4 MG (ZOFRAN) ORAL DISSOLVE TAB PO PRN (00:15)
[2019-12-30] MEDS ORDERED: ACETAMINOPHEN 325 MG TABLET PO PRN (00:15)
[2019-12-30] MEDS ORDERED: MELATONIN 3 MG TABLET PO PRN (00:15)
[2019-12-30 03:05] LABS: BASOPHILS % (AUTO) 1 % (0-10); EOSINOPHILS # (AUTO) 0.3 10^3/uL (0.0-0.3); EOSINOPHILS % (AUTO) 8 % (0-10); HEMATOCRIT 27 % (40-54); HEMOGLOBIN 8.5 G/DL (13.3-17.7); LYMPHOCYTES # (AUTO) 0.9 X 10^3 (1.0-4.0); LYMPHOCYTES % (AUTO) 27 % (12-44); MEAN CORPUSCULAR HEMOGLOBIN 31 PG (25-34); MEAN CORPUSCULAR HGB CONC 32 G/DL (32-36); MEAN CORPUSCULAR VOLUME 96 FL (80-99); MEAN PLATELET VOLUME 9.9 FL (7.4-10.4); MONOCYTES # (AUTO) 0.7 X 10^3 (0.0-1.0); MONOCYTES % (AUTO) 21 % (0-12); NEUTROPHILS # (AUTO) 1.4 X 10^3 (1.8-7.8); NEUTROPHILS % (AUTO) 43 % (42-75); PLATELET COUNT 108 10^3/uL (130-400); RED CELL DISTRIBUTION WIDTH 15.6 % (10.0-14.5); WHITE BLOOD COUNT 3.3 10^3/uL (4.3-11.0)
[2019-12-30 03:22] LABS: CALCIUM 8.4 MG/DL (8.5-10.1); CREATININE SERUM 4.36 MG/DL (0.60-1.30); MAGNESIUM 1.8 MG/DL (1.6-2.4); POTASSIUM 5.2 MMOL/L (3.6-5.0)
[2019-12-30 04:00] VITALS: BP 149/82
--- NOTE | 2019-12-30 05:37 | Pulmonary Consultation ---
History of Present Illness History of Present Illness Date Seen by Provider: Dec 30, 2019 Time Seen by Provider: 05:32 Date of Admission History of Present Illness 84yo poor historian with CKD (baseline CR is around 2.7) who was admitted on 12/14/19 secondary to Influenza B, found to have left sided pneumonia with parapneumonic effusion, and UTI. Pt was placed on PO omnicef and was discharged on on 12/17/19. It appears pt was discharged with omnicef x 3days for total of 8days of Abx therapy. Pt presented to ED secondary to worsening renal function, SOB. CXR shows moderate size left pleural effusion. CXR during last admission shows small LLL effusion with infiltration. Pt was discharge to [facility] during last hospitalization however prior to that he was apparently living at home. Allergies and Home Medications Allergies Coded Allergies: bee pollen (Verified Allergy, Unknown, Anaphylaxis, 12/30/19) Home Medications Acetaminophen 650 Mg Tablet.er, 650-1,300 MG PO Q8H PRN for PAIN-MILD, (R eported) Amiodarone HCl 200 Mg Tablet, 200 MG PO DAILY Prescribed by: DIALLO ACUNA on 12/17/19 1029 Amlodipine Besylate 10 Mg Tablet, 10 MG PO DAILY Prescribed by: DIALLO ACUNA on 12/17/19 1029 Aspirin 81 Mg Tablet.dr, 81 MG PO DAILY, (Reported) Cefdinir 300 Mg Capsule, 300 MG PO BID Prescribed by: DIALLO ACUNA on 12/17/19 1029 Oseltamivir Phosphate 30 Mg Capsule, 30 MG PO DAILY Prescribed by: DIALLO ACUNA on 12/17/19 1029 Tamsulosin HCl 0.4 Mg Cap, 0.4 MG PO DAILY@1800 Prescribed by: DIALLO ACUNA on 12/17/19 1029 Past Ycemlll-Lhnlud-Oesgbf Hx Patient Social History Alcohol Use: Denies Use Recreational Drug Use: No Smoking Status: Former Smoker Type Used: Cigarettes Former Smoker, Quit: Dec 29, 1979 2nd Hand Smoke Exposure: No Recent Foreign Travel: No Contact w/Someone Who Travel: No Recent Infectious Disease Expo: No Recent Hopitalizations: Yes Immunizations Up To Date Tetanus Booster (TDap): Less than 5yrs PED Vaccines UTD: No Date of Pneumonia Vaccine: Aug 13, 2018 Date of Influenza Vaccine: Oct 13, 2019 Seasonal Allergies Seasonal Allergies: No Past Medical History Surgeries: Yes (BILATERAL KNEE REPLACEMENTS) Appendectomy, Joint Replacement, Orthopedic Respiratory: No Chronic Bronchitis Currently Using CPAP: No Currently Using BIPAP: No Cardiac: Yes Atrial Fibrillation, High Cholesterol, Hypertension Neurological: No Stroke Reproductive Disorders: No Sexually Transmitted Disease: No HIV/AIDS: No Genitourinary: Yes Renal Failure Gastrointestinal: No Musculoskeletal: No Arthritis Endocrine: No Diabetes, Non-Insulin dep HEENT: Yes Loss of Vision: Denies Hearing Impairment: Hard of Hearing Cancer: No Psychosocial: No Integumentary: No Blood Disorders: No Adverse Reaction/Blood Tranf: No Family Medical History Heart Disease, Cancer, Hypertension Review of Systems Time Seen by Provider: 06:45 Sepsis Event Evaluation Height, Weight, BMI Height: 6'2.00" Weight: 200lbs. 0.0oz. 90.494763ql; 28.54 BMI Method:Estimated Exam Exam Vital Signs Date Time Temp Pulse Resp B/P (MAP) Pulse Ox O2 Delivery O2 Flow Rate FiO2 12/30/19 04:00 Room Air 12/30/19 04:00 89 16 149/82 (104) 94 Room Air 12/30/19 01:00 95 12/30/19 00:00 91 21 146/72 (96) 97 Room Air 12/30/19 00:00 Room Air 12/29/19 23:48 36.7 93 97 12/29/19 23:45 89 17 140/74 (96) 97 Room Air 12/29/19 23:33 36.7 97 Room Air 12/29/19 23:30 94 17 140/76 (97) 98 Room Air 12/29/19 23:15 95 21 154/91 (112) 97 Room Air 12/29/19 23:00 36.7 93 21 140/71 (94) 98 Room Air 12/29/19 22:57 95 Height & Weight Height: 6'2.00" Weight: 200lbs. 0.0oz. 90.765607uw; 28.54 BMI Method:Estimated General Appearance: Anxious, Chronically ill, Mild Distress HEENT: PERRL/EOMI, Normal ENT Inspection, Pharynx Normal Neck: Full Range of Motion, Non Tender, Supple Respiratory: Chest Non Tender, No Accessory Muscle Use, No Respiratory D istress, Decreased Breath Sounds Cardiovascular: Regular Rate, Rhythm Capillary Refill: Less Than 3 Seconds Gastrointestinal: normal bowel sounds, non tender, soft Extremity: Normal Capillary Refill, Pedal Edema Neurologic/Psychiatric: Alert, Depressed Affect Skin: Normal Color, Warm/Dry Lymphatic: No Adenopathy Results Lab Laboratory Tests 12/30/19 02:53 Assessment/Plan Assessment/Plan Moderate left pleural effusion r/o pneumonia with empyema -Will do thoracentesis -Check Ct of chest after thoracentesis -Graves culture -Check MRSA nasal swab -Start Zosyn and Vanco -Check UA and strep/legionella Ag Leukopenia r/o sepsis Pancytopenia/thrombocytopenia -Check occult stool -doubt DIC however will check DIC panel and HIT abx CKD with metabolic acidosis and hyperkalemia -Baseline Cr 2.7 -check LA -Give 1 amp of bicarb and start bicarb gtt at 150 -D/C lasix Hx of Afib BPH Debility -PT/OT RIKI LICEA DO Dec 30, 2019 05:37
[2019-12-30] MEDS ORDERED: DEXTROSE 50% 50 ML (IMS) SYR IV ONE (05:45)
[2019-12-30] MEDS ORDERED: inSUlin (REGULAR) HUMAN 1 UNIT/0.01 ML (CHARGE PER UNIT) IV ONE (05:45)
[2019-12-30] MEDS ORDERED: LACTATED RINGERS 1,000 ML IV SCH (05:45)
[2019-12-30] MEDS ORDERED: SODIUM BICARB 8.4% 50 MEQ/50 ML (ABBOTT) SYR IV ONE (05:45)
[2019-12-30] MEDS ORDERED: SOD POLYSTERENE 15 GM/60 ML (KAYEXALATE) UNIT DOSE PO ONE (05:45)
[2019-12-30] MEDS ORDERED: PHARMACY TO DOSE IV SCH (05:45)
--- NOTE | 2019-12-30 05:45 | NUR ---
PATIENT AGREEABLE TO THORACENTESIS AND CONSENT SIGNED. DR. LICEA AT BEDSIDE TO DISCUSS WITH PATIENT. 0550 - PATIENT SAT UP AND THORACENTESIS STARTED. ALEX HANEY POST PARTUM NURSE AT BEDSIDE TO ASSIST WITH PROCEDURE. PATIENT STATES NO COMPLAINTS AFTER THE PROCEDURE AND IS RESTING COMFORTABLY.
[2019-12-30] MEDS ORDERED: LIDOCAINE 1% INJ 20 ML 20 ML VIAL INJ ONE (06:00)
[2019-12-30] MEDS ORDERED: LIDOCAINE 1% INJ 20 ML 20 ML VIAL ONE (06:03)
[2019-12-30] MEDS ORDERED: SODIUM BICARB 8.4% 50 MEQ/50 ML VIAL ONE (06:05)
[2019-12-30] MEDS ORDERED: inSUlin (REGULAR) HUMAN 1 UNIT/0.01 ML (CHARGE PER UNIT) ONE (06:06)
[2019-12-30] MEDS ORDERED: PIPERACILLIN/TAZO 4.5 GM/NS 100 ML IV ONE ×2 (06:15)
[2019-12-30] MEDS ORDERED: VANCOMYCIN 2000 MG/NS 500 ML IVPB IV ONE ×2 (06:30)
[2019-12-30] MEDS ORDERED: morphine INJ 4 MG/ML 1 ML (VIAL/SYRINGE) IVP PRN (06:30)
[2019-12-30 07:17] LABS: ALBUMIN 2.8 GM/DL (3.2-4.5); BILIRUBIN,TOTAL 0.5 MG/DL (0.1-1.0); TOTAL PROTEIN 5.7 GM/DL (6.4-8.2)
[2019-12-30 07:32] LABS: GLUCOSE,BODY FLUID 94 MG/DL; LDH,BODY FLUID 39 U/L
--- NOTE | 2019-12-30 07:32 | Diagnostic Imaging Report ---
EXAM: CHEST 1 VIEW, AP/PA ONLY INDICATION: Status post left thoracentesis. COMPARISON: 12/30/2019 3:51 AM. FINDINGS: There is only a tiny left pleural effusion persisting. Low lung volumes. Cardiomegaly. No pneumothorax. No acute osseous findings. IMPRESSION: Marked improvement of the left pleural effusion. No pneumothorax. Dictated by: Dictated on workstation # [id number]
[2019-12-30 08:04] LABS: FIBRIN DEGRADATION PRODUCTS 8.18 UG/ML (0.00-0.49); PROTHROMBIN TIME PATIENT 13.5 SEC (12.2-14.7)
[2019-12-30] MEDS: RT-ALBUTEROL/IPRATROPIUM 3 ML (DUONEB) VIAL INH SCH ×2 (08:13→23:47)
[2019-12-30] MEDS: CALCIUM ACETATE 667 MG CAP (PHOSLO) PO SCH ×3 (08:18→17:59)
[2019-12-30 08:40] LABS: BODY FLUID APPEARENCE CLOUDY; BODY FLUID COLOR YELLOW; BODY FLUID SOURCE THORACENTESIS
--- NOTE | 2019-12-30 08:40 | Diagnostic Imaging Report ---
Portable erect AP chest at 3:51. Indication: Left pleural effusion The appearance of the chest has worsened since the prior exam of 12/14/2019 as the atelectasis/infiltrate and fluid in the left lung base has increased. The inferior half of the left thorax is now opacified. There is also some atelectasis/infiltrate and fluid now present along the lateral aspect of the left upper lobe. The left apex and right lung remain generally clear. The heart is partially obscured but seems stable compared to the prior exam. The mediastinum is not widened. The osseous structures are intact. IMPRESSION: The appearance of the chest has worsened since the prior study as there is greater involvement of the left lung by pneumonia/atelectasis and fluid.. A followup study would be recommended for continued evaluation. Dictated by: Dictated on workstation # [id number]
[2019-12-30 08:41] LABS: BODY FLUID RBC COUNT 2660 /uL; BODY FLUID WBC TOTAL COUNT 165 /uL
[2019-12-30 08:47] LABS: BF OTHER CELLS 60 %; LYMPHOCYTES,BODY FLUID 33 %
[2019-12-30] MEDS: SODIUM BICARBONATE 8.4% VIAL 100 MEQ in 1/2 NS IV SOLUTION 1,000 ML IV SCH ×4 (08:47→23:08)
[2019-12-30] MEDS ORDERED: FUROSEMIDE 40 MG/4 ML INJ (LASIX) IVP SCH (09:00)
[2019-12-30] MEDS ORDERED: SOD POLYSTERENE 15 GM/60 ML (KAYEXALATE) UNIT DOSE ONE (09:49)
--- NOTE | 2019-12-30 10:06 | NUR ---
After tasting Kayexalate, pt refused to finish it. notified.
[2019-12-30] MEDS: RT-ALBUTEROL/IPRATROPIUM 3 ML (DUONEB) VIAL INH PRN (10:52)
[2019-12-30 10:54] LABS: CLARITY,URINE SL CLOUDY; COLOR,URINE ORANGE; GLUCOSE, URINE (UA) NEGATIVE (NEGATIVE); KETONES,URINE NEGATIVE (NEGATIVE); LEUKOCYTE ESTERASE ,URINE 1+ (NEGATIVE); NITRITE,URINE NEGATIVE (NEGATIVE); PROTEIN,URINE 2+ (NEGATIVE)
--- NOTE | 2019-12-30 10:57 | History & Physical-Hospitalist ---
History of Present Illness HPI/Chief Complaint Brien Franco is an 84-year-old male with past medical history of hypertension, atrial fibrillation not on anticoagulation, BPH, chronic kidney disease, who presented with shortness of breath. He is a poor historian and unable to provide any meaningful history. He presented to the [facility] emergency room and was found to have a large left pleural effusion as well as an acute kidney injury on chronic kidney disease. He was transferred to [facility] for inpatient hospitalization. He denies any complaints or concerns at this time. He is a sleepy. He denies any pain. He denies any trouble breathing. Source: patient Exam Limitations: clinical condition Date Seen 12/30/19 Time Seen by a Provider: 08:50 Attending Physician Sadaf Curtis MD PCP Rosalinda Larsen MD Referring Physician Date of Admission Dec 29, 2019 at 22:56 Home Medications & Allergies Home Medications Reviewed patient Home Medication Reconciliation performed by pharmacy medication reconciliations monitor technician and/or nursing. Patients Allergies have been reviewed. Allergies Allergies Coded Allergies bee pollen (Verified Allergy, Unknown, Anaphylaxis, 12/30/19) Past Bkugqum-Bvdynz-Pvxchh Hx Past Med/Social Hx: Reviewed Nursing Past Med/Soc Hx Patient Social History Alcohol Use: Denies Use Recreational Drug Use: No Smoking Status: Former Smoker Former Smoker, Quit: Dec 29, 1979 Type Used: Cigarettes 2nd Hand Smoke Exposure: No Physical Abuse Screen: No Sexual Abuse: No Recent Foreign Travel: No Contact w/other who traveled: No Recent Hopitalizations: Yes Recent Infectious Disease Expo: No Immunizations Up To Date Tetanus Booster (TDap): Less than 5yrs Pediatric: No Date of Pneumonia Vaccine: Aug 13, 2018 Date of Influenza Vaccine: Oct 13, 2019 Seasonal Allergies Seasonal Allergies: No Past Medical History Surgeries: Appendectomy, Joint Replacement, Orthopedic Currently Using CPAP: No Currently Using BIPAP: No Cardiac: Atrial Fibrillation, High Cholesterol, Hypertension Neurological: Stroke Reproductive: No Sexually Transmitted Disease: No HIV/AIDS: No Genitourinary: Renal Failure Musculoskeletal: Arthritis Endocrine: Diabetes, Non-Insulin dep Loss of Vision: Denies Hearing Impairment: Hard of Hearing History of Blood Disorders: No Adverse Reaction to Blood [place]: No Family History Heart Disease, Cancer, Hypertension Review of Systems Constitutional: no symptoms reported, see HPI Respiratory: no symptoms reported Cardiovascular: no symptoms reported Gastrointestinal: no symptoms reported Physical Exam Physical Exam Vital Signs Vital Signs - First Documented 12/29/19 12/29/19 22:57 23:00 Temp 36.7 Pulse 95 Resp 21 B/P (MAP) 140/71 (94) Pulse Ox 98 O2 Delivery Room Air Capillary Refill : Less Than 3 Seconds Height, Weight, BMI Height: 6'2.00" Weight: 200lbs. 0.0oz. 90.724433bi; 28.54 BMI Method:Estimated General Appearance: No Apparent Distress, WD/WN, Chronically ill Neck: Normal Inspection, Supple Respiratory: No Respiratory Distress, Decreased Breath Sounds Cardiovascular: Regular Rate, Rhythm, No Murmur Gastrointestinal: Normal Bowel Sounds, Non Tender, Soft Extremity: Normal Inspection, Non Tender, Pedal Edema Neurologic/Psychiatric: Disoriented, Other (Sleeping, easily arousable) Skin: Normal Color, Warm/Dry, Other (Facial telangiectasias) Results Results/Procedures Labs Laboratory Tests 12/30/19 02:53 Patient resulted labs reviewed. Imaging: Reviewed Imaging Report Assessment/Plan Admission Diagnosis Acute kidney injury superimposed on chronic kidney disease Admission Status: Inpatient Order (span 2 midnights) Reason for Inpatient Admission: Large left pleural effusion requiring thoracentesis and diagnostic evaluation Assessment and Plan Acute kidney injury superimposed on chronic kidney disease Hyperkalemia Hyperphosphatemia Non-anion gap metabolic acidosis Creatinine 4 on arrival at the emergency room, baseline appears to be around 2.7 Patient and family would NOT want to pursue dialysis if indicated Appeared hypervolemic on arrival, given IV Lasix 80 mg Potassium 5.2 this morning, decreased from 5.7 Creatinine increased to 4.3 this morning IV diuretics held, started on IV fluid with bicarbonate Repeat BMP this afternoon to assess response started on phosphate binder Large left pleural effusion Pulmonology consulted, appreciate assistance Thoracentesis performed this morning, lab studies pending Repeat chest x-ray with minimal residual left pleural effusion Started on vancomycin and Zosyn for possible underlying pneumonia CT chest/abdomen/pelvis ordered Pancytopenia WBC 3.3, hemoglobin 8.5, platelets 108 No acute management needs, continue to monitor Hypertension BPH Atrial fibrillation Continue home meds Not on anticoagulation DVT prophylaxis: Heparin Diagnosis/Problems Diagnosis/Problems (1) Acute kidney injury superimposed on chronic kidney disease Status: Acute (2) Hyperkalemia Status: Acute (3) Hyperphosphatemia Status: Acute (4) Metabolic acidosis Status: Acute (5) Pleural effusion on left Status: Acute (6) Pancytopenia Status: Acute Clinical Quality Measures DVT/VTE Risk/Contraindication: Risk Factor Score Per Nursin RFS Level Per Nursing on Admit: 4+=Very High SADAF CURTIS MD Dec 30, 2019 10:57
[2019-12-30 11:10] LABS: BACTERIA,URINE NEGATIVE /HPF; BILIRUBIN,URINE 1+ (NEGATIVE); RBC,URINE TNTC /HPF; WBC,URINE RARE /HPF
[2019-12-30] MEDS: AMIODARONE 200 MG (CORDARONE) TAB PO SCH (11:34)
[2019-12-30] MEDS: amLODIPine 10 MG (NORVASC) TAB PO SCH (11:34)
[2019-12-30] MEDS: ASPIRIN E.C. 81 MG (ECOTRIN) TAB PO SCH (11:35)
[2019-12-30 12:00] VITALS: BP 121/65
--- NOTE | 2019-12-30 13:20 | Diagnostic Imaging Report ---
PROCEDURE: CT chest, abdomen, and pelvis without contrast. TECHNIQUE: Multiple contiguous axial images were obtained through the chest, abdomen, and pelvis without the use of intravenous contrast. Auto Exposure Controls were utilized during the CT exam to meet ALARA standards for radiation dose reduction. INDICATION: Left effusion status post thoracentesis. Congestive heart failure. Dizziness. Evaluate for empyema. COMPARISON: Chest radiograph on 12/30/2019. CT chest: The heart size is enlarged with a small pericardial effusion. There is calcified aortic and coronary atherosclerotic plaque. There is no mediastinal, hilar, or axillary lymphadenopathy. Bilateral small pleural effusions are present with bibasilar opacities. No suspicious pulmonary nodules or masses. No central endobronchial obstructing lesions. No pneumothorax. The osseous structures demonstrate degenerative changes without focal lytic or blastic lesions. CT ABDOMEN AND PELVIS: The liver demonstrates a micronodular contour. The gallbladder is distended with gallstones visualized. There is splenomegaly. A small to moderate volume of ascites is present throughout the abdomen. Renal cysts are noted bilaterally. No evidence of hydronephrosis or obstructing calculi. The pancreas and adrenal glands demonstrate no acute abnormalities on this noncontrast study. There is no pathologically enlarged mesenteric or retroperitoneal adenopathy. The bowel loops are nondilated. Diverticuli are seen throughout the descending and sigmoid colon. There is no free air. The osseous structures are age-appropriate. The urinary bladder is decompressed with Hansen in place. Air is seen within the bladder lumen. IMPRESSION: 1. Bilateral small pleural effusions with bibasilar opacities favored to represent atelectasis. No findings to suggest empyema or pulmonary mass. Please note however this evaluation is somewhat limited without IV contrast. 2. Cirrhotic morphology of the liver. Consider liver protocol CT or MRI to screen for hepatocellular carcinoma. 3. Stigmata of portal hypertension with splenomegaly and a small to moderate volume of ascites. 4. Cholelithiasis. 5. Cardiomegaly. 6. Diverticulosis. Dictated by: Dictated on workstation # [id number]
[2019-12-30] MEDS: PIPERACILLIN/TAZOBACTAM (BULK) 4.5 GM in NS (IVPB) 100 ML IV SCH ×2 (14:25→20:56)
[2019-12-30 16:00] VITALS: BP 102/48
[2019-12-30] MEDS: TAMSULOSIN 0.4 MG (FLOMAX) CAP PO SCH (17:58)
[2019-12-30 20:10] VITALS: BP 142/68
[2019-12-31] VITALS (8 sets, daily range): BP systolic 101–149; BP diastolic 67–103
[2019-12-31] MEDS: RT-ALBUTEROL/IPRATROPIUM 3 ML (DUONEB) VIAL INH PRN (01:58)
[2019-12-31] MEDS: RT-ALBUTEROL/IPRATROPIUM 3 ML (DUONEB) VIAL INH SCH ×7 (01:59→21:27)
[2019-12-31] MEDS ORDERED: RT-ALBUTEROL/IPRATROPIUM 3 ML (DUONEB) VIAL INH PRN (02:30)
[2019-12-31] MEDS ORDERED: RT-ALBUTEROL/IPRATROPIUM 3 ML (DUONEB) VIAL ONE (03:30)
[2019-12-31 03:54] LABS: BASOPHILS % (AUTO) 1 % (0-10); EOSINOPHILS # (AUTO) 0.2 10^3/uL (0.0-0.3); EOSINOPHILS % (AUTO) 8 % (0-10); HEMATOCRIT 28 % (40-54); HEMOGLOBIN 8.7 G/DL (13.3-17.7); LYMPHOCYTES # (AUTO) 0.7 X 10^3 (1.0-4.0); LYMPHOCYTES % (AUTO) 21 % (12-44); MEAN CORPUSCULAR HEMOGLOBIN 30 PG (25-34); MEAN CORPUSCULAR HGB CONC 31 G/DL (32-36); MEAN CORPUSCULAR VOLUME 96 FL (80-99); MEAN PLATELET VOLUME 10.5 FL (7.4-10.4); MONOCYTES # (AUTO) 0.5 X 10^3 (0.0-1.0); MONOCYTES % (AUTO) 15 % (0-12); NEUTROPHILS # (AUTO) 1.8 X 10^3 (1.8-7.8); NEUTROPHILS % (AUTO) 55 % (42-75); PLATELET COUNT 103 10^3/uL (130-400); WHITE BLOOD COUNT 3.2 10^3/uL (4.3-11.0)
[2019-12-31 04:11] LABS: CALCIUM 8.4 MG/DL (8.5-10.1); CREATININE SERUM 4.28 MG/DL (0.60-1.30); MAGNESIUM 1.6 MG/DL (1.6-2.4); PHOSPHORUS 4.5 MG/DL (2.3-4.7); POTASSIUM 4.9 MMOL/L (3.6-5.0)
--- NOTE | 2019-12-31 04:23 | Pulmonary Progress Note ---
Subjective Time Seen by a Provider: 04:18 Subjective/Events-last exam PT is more SOB today. Sepsis Event Evaluation Height, Weight, BMI Height: 6'2.00" Weight: 200lbs. 0.0oz. 90.180976dz; 28.54 BMI Method:Estimated Focused Exam Lactate Level 12/30/19 06:41: Lactic Acid Level 1.29 Exam Exam Vital Signs Date Time Temp Pulse Resp B/P (MAP) Pulse Ox O2 Delivery O2 Flow Rate FiO2 12/31/19 04:00 95 Room Air 12/31/19 02:30 37.2 80 97 21 12/31/19 02:18 Vapotherm 30.00 21.00 12/31/19 02:15 97 Vapotherm 30.00 21 12/31/19 01:59 96 Room Air 12/31/19 00:43 88 12/31/19 00:00 37.2 85 18 133/85 (101) 93 Room Air 12/31/19 00:00 94 Room Air 12/30/19 21:00 96 Room Air 12/30/19 20:10 86 20 142/68 (92) 94 Room Air 12/30/19 20:00 93 Room Air 12/30/19 19:00 79 12/30/19 16:00 94 Room Air 12/30/19 16:00 36.2 77 13 102/48 (66) 95 Room Air 12/30/19 12:15 89 12/30/19 12:00 94 Room Air 12/30/19 12:00 36.0 85 13 121/65 (83) 98 Room Air 12/30/19 10:52 98 Room Air 12/30/19 09:00 98 Room Air 12/30/19 08:15 36.0 12/30/19 08:13 95 Room Air 12/30/19 08:00 94 Room Air 12/30/19 07:00 89 I & O 12/31/19 07:00 Intake Total 3270 ml Output Total 775 ml Balance 2495 ml Height & Weight Height: 6'2.00" Weight: 200lbs. 0.0oz. 90.355522mh; 28.54 BMI Method:Estimated General Appearance: No Apparent Distress, WD/WN, Chronically ill HEENT: PERRL/EOMI, Normal ENT Inspection, Pharynx Normal Neck: Normal Inspection, Supple Respiratory: No Respiratory Distress, Decreased Breath Sounds Cardiovascular: Regular Rate, Rhythm, No Murmur Capillary Refill: Less Than 3 Seconds Gastrointestinal: normal bowel sounds, non tender, soft Extremity: Normal Inspection, Non Tender, Pedal Edema Neurologic/Psychiatric: Disoriented, Other (Sleeping, easily arousable) Skin: Normal Color, Warm/Dry, Other (Facial telangiectasias) Lymphatic: No Adenopathy Results Lab Laboratory Tests 12/30/19 02:53 12/31/19 03:20 Assessment/Plan Assessment/Plan Moderate left pleural effusion p -s/p thoracentesis -Check Ct of chest after thoracentesis -Graves culture -Check MRSA nasal swab -Check bilateral dopplers of LE -Check ABG Pneumonia/Atelectasis -Continue Zosyn and Vanco -Check UA and strep/legionella Ag Ascities with possible hepatic mass per CT of abd -check MRI of abdomen Leukopenia r/o sepsis Pancytopenia/thrombocytopenia -Check occult stool -doubt DIC however will check DIC panel and HIT abx CKD with metabolic acidosis and hyperkalemia -Baseline Cr 2.7 -check LA -Give 1 amp of bicarb and start bicarb gtt at 150 -D/C lasix Hx of Afib BPH Debility -PT/OT RIKI LICEA DO Dec 31, 2019 04:23
[2019-12-31] MEDS ORDERED: methylPREDNISolone 125 MG (Solu-MEDROL) VIAL IVP ONE (04:30)
[2019-12-31] MEDS ORDERED: SODIUM BICARB 8.4% 50 MEQ/50 ML VIAL IV ONE (04:30)
[2019-12-31] MEDS: methylPREDNISolone 40 MG/ML (Solu-MEDROL) VIAL IV SCH ×4 (04:49→23:00)
[2019-12-31] MEDS ORDERED: MAGNESIUM 1 GM/100 ML IVPB 200 ML IV ONE (05:43)
[2019-12-31] MEDS ORDERED: methylPREDNISolone 125 MG (Solu-MEDROL) VIAL ONE (05:43)
[2019-12-31 05:45] LABS: ABG BASE EXCESS -3.2 MMOL/L (-2.5-2.5); ABG OXYGEN SATURATION 94 % (94-100); ABG PCO2 30 MMHG (35-45); ABG PH 7.44 (7.37-7.43); ABG PO2 70 MMHG (79-93); ABG TCO2 21.3 MMOL/L (21.0-31.0)
[2019-12-31 05:46] LABS: ALLENS TEST YES-POS; INSPIRED O2 21%; PATIENT TEMP 36.5; VENTILATOR YES
[2019-12-31] MEDS: PIPERACILLIN/TAZOBACTAM (BULK) 4.5 GM in NS (IVPB) 100 ML IV SCH ×2 (05:57→15:52)
[2019-12-31] MEDS: MAGNESIUM 1 GM/100 ML IVPB 100 ML IV SCH ×2 (05:59→07:30)
[2019-12-31] MEDS: CALCIUM ACETATE 667 MG CAP (PHOSLO) PO SCH ×3 (06:02→18:00)
--- NOTE | 2019-12-31 06:06 | Diagnostic Imaging Report ---
INDICATION: Pleural effusion COMPARISON: 12/30/2019 FINDINGS: Single view of the chest demonstrates increasing left-sided effusion. The heart is prominent without overt pulmonary edema. There is no pneumothorax. Osseous structures stable. IMPRESSION: Increasing left-sided effusion with dependent atelectasis. Dictated by: Dictated on workstation # [id number]
[2019-12-31] MEDS ORDERED: VANCOMYCIN 1500 MG/NS 500 ML IVPB IV SCH ×2 (08:00)
--- NOTE | 2019-12-31 08:12 | Diagnostic Imaging Report ---
PROCEDURE: US Venous Lower Ext [place]. TECHNIQUE: Multiple real-time grayscale images were obtained over the lower extremities in various projections, bilaterally. Additional duplex Doppler and color Doppler images were also obtained. INDICATION: Evaluation for deep venous thrombosis in patient with pleural effusion and congestive heart failure EXAMINATIONS: Both grayscale and color Doppler imaging of the deep veins of the lower extremities were performed with waveform analysis. FINDINGS: There is no intraluminal filling defect. Normal continuous flow is seen throughout the deep venous systems of both legs, and there is normal response to augmentation. The deep veins compress normally. IMPRESSION: No ultrasound evidence of deep venous thrombosis in either lower extremity. Dictated by: Dictated on workstation # [id number]
--- NOTE | 2019-12-31 08:56 | Progress Note - Hospitalist ---
Subjective HPI/CC On Admission Date Seen by Provider: Dec 31, 2019 Time Seen by Provider: 08:51 Brien Franco is an 84-year-old male with past medical history of hypertension, atrial fibrillation not on anticoagulation, BPH, chronic kidney disease, who presented with shortness of breath. He is a poor historian and unable to provide any meaningful history. He presented to the [place] emergency room and was found to have a large left pleural effusion as well as an acute kidney injury on chronic kidney disease. He was transferred to [facility] for inpatient hospitalization. He denies any complaints or concerns at this time. He is a sleepy. He denies any pain. He denies any trouble breathing. Subjective/Events-last exam Pt reports doing ok and breathing improved s/p thoracentesis. Discussed with Dr Taveras and MRI ordered. Discussed with RN and pt has not been able to lay flat and may not be able to tolerate MRI. Focused Exam Lactate Level 12/30/19 06:41: Lactic Acid Level 1.29 Objective Exam Vital Signs Vital Signs Date Time Temp Pulse Resp B/P (MAP) Pulse Ox O2 Delivery O2 Flow Rate FiO2 12/31/19 08:00 36.6 12/31/19 07:34 94 Vapotherm 30.00 21 12/31/19 04:00 87 22 138/67 (90) Capillary Refill : Less Than 3 Seconds General Appearance: No Apparent Distress, Chronically ill Respiratory: Decreased Breath Sounds, Other (on Vapotherm) Cardiovascular: Regular Rate, Rhythm, No Murmur Gastrointestinal: Normal Bowel Sounds, Non Tender, Soft Extremity: Pedal Edema, Other (lorraine hose in place on the left leg) Neurologic/Psychiatric: Alert, Other (oriented to person and place) Results/Procedures Lab Laboratory Tests 12/31/19 03:20 Patient resulted labs reviewed. Imaging: Reviewed Imaging Report Assessment/Plan Assessment and Plan Assess & Plan/Chief Complaint Acute kidney injury superimposed on chronic kidney disease Hyperkalemia Hyperphosphatemia Non-anion gap metabolic acidosis Creatinine 4 still, baseline appears to be around 2.7 Patient and family would NOT want to pursue dialysis if indicated- will consult hospice - On bicarb gtt Cont phosphate binder - Hospice consult Large left pleural effusion Pulmonology consulted, appreciate assistance Thoracentesis on 12/30 Cont on vancomycin and Zosyn for possible underlying pneumonia CT chest/abdomen/pelvis reveals cirrhosis, portal hypertension, and spleno megaly - no known history of alcohol abuse and BMI only 31 Pancytopenia WBC 3.3, hemoglobin 8.5, platelets 108 No acute management needs, continue to monitor - DIC panel negative but d-dimer elevated - Cannot get CTA due to creatinine - Unsure why he is not on anticoagualtion, discussed with Dr Larsen his former PCP who will look in her records Hypertension BPH Atrial fibrillation Continue home meds Not on anticoagulation DVT prophylaxis: Heparin Diagnosis/Problems Diagnosis/Problems (1) Acute kidney injury superimposed on chronic kidney disease Status: Acute Permanent Comment: Stage IV CKD Last Edited By: Diallo Mehta on Dec 31, 2019 09:14 (2) Pleural effusion on left Status: Acute (3) Metabolic acidosis Status: Acute (4) Pancytopenia Status: Acute (5) Hyperphosphatemia Status: Acute (6) Hyperkalemia Status: Acute (7) Hypertension Status: Chronic Qualifiers: Hypertension type: essential hypertension Qualified Codes: I10 - Essential (primary) hypertension (8) Debility Status: Acute (9) Chronic atrial fibrillation Status: Acute Clinical Quality Measures DVT/VTE Risk/Contraindication: Risk Factor Score Per Nursin RFS Level Per Nursing on Admit: 4+=Very High DIALLO MEHTA MD Dec 31, 2019 08:56
[2019-12-31] MEDS ORDERED: VANCOMYCIN 500 MG/NS 100 ML IV SCH ×2 (09:00)
[2019-12-31] MEDS: ASPIRIN E.C. 81 MG (ECOTRIN) TAB PO SCH (10:07)
[2019-12-31] MEDS: amLODIPine 10 MG (NORVASC) TAB PO SCH (10:07)
[2019-12-31] MEDS: PANTOPRAZOLE 40 MG (PROTONIX) VIAL IV SCH (10:07)
[2019-12-31] MEDS: AMIODARONE 200 MG (CORDARONE) TAB PO SCH (10:07)
--- NOTE | 2019-12-31 11:13 | Occupational Therapy Eval ---
OT Evaluation-General/PLF Medical Diagnosis Admission Date Dec 29, 2019 at 22:56 Medical Diagnosis: L PE/ SOB/ acute kidney injury Onset Date: Dec 31, 2019 Therapy Diagnosis Therapy Diagnosis: Decreased ADL function Height/Weight Height (Feet): 6 Height (Inches): 2.00 Weight (Pounds): 200 Weight (Ounces): 0.0 Precautions Precautions/Isolations: Fall Prevention, Standard Precautions Safety Interventions: Notify Family Referral Physician: Neil Taveras DO Referral Reason: Activity Tolerance, Self Care, Evaluation/Treatment, Strengthening/ROM Medical History Pertinent Medical History: Atrial Fib, Arthritis, CAD, COPD, DM, HTN, Renal Insufficiency Additional Medical History HTN, a fib, chronic kidney disease, stroke/ TIA (2016), NID DM, VIEJAS Current History Pt became SOB at detention, admitted to ER with L PE Reviewed History: Yes Social History Home: [facility] Entry Into Home: Level Entry ADL-Prior Level of Function SCALE: Activities may be completed with or without assistive devices. 3-Zcdjmcbaie-lydsuay completes the activity by him/herself with no assistance from a helper. 5-Set-up or Clean-up Assistance-helper sets up or cleans up; patient completes activity. [place] assists only prior to or following the activity. 4-Supervision or Touching Assistance-helper provides verbal cues and/or touching/steadying and/or contact guard assistance as patient completes activi ty. Assistance may be provided throughout the activity or intermittently. 3-Partial/Moderate Assistance-helper does LESS THAN HALF the effort. [place] lifts, holds or supports trunk or limbs, but provides less than half the effort. 2-Substantial/Maximal Assistance-helper does MORE THAN HALF the effort. [place] lifts or holds trunk or limbs and provides more than half the effort. 1-Qviepsnej-tsorgc does ALL the effort. Patient does none of the effort to complete the activity. Or, the assistance of 2 or more helpers is required for the patient to complete the activity. If activity was not attempted, code reason: 7-Patient Refused. 9-Not Applicable-not attempted and the patient did not perform the activity before the current illness, exacerbation or injury. 10-Not Attempted due to Environmental Limitations-(lack of equipment, weather restraints, etc.). 88-Not Attempted due to Medical Conditions or Safety Concerns. ADL PLOF Comments Pt required SBA per pt's daughter for ADL tasks within [facility]. Prior to admission to detention, pt was Mod I at home with . Self Care: Needed Some Help Functional Cognition: Independent Drive Self: No OT Current Status Subjective Pt's nurse notified of OT entry, nursing advises staying in bed due to medical status. Pt seen in bed, pt agreeable to OT eval/ treat. Pt denies pain. Pt's nurse and daughter present during session. Mental Status/Objective Patient Orientation: Person, Place, Situation Attachments: Hansen Catheter, Oxygen (see below), Telemetry, Other-See Comments (: pt on vapotherm) Current Glasses/Contacts: Yes Hearing Aids: No Dentures/Partials: No Hand Dominance: Right Upper Extremity ROM Decreased due to strength PROM WFL with stated pain during R shoulder scaption Upper Extremity Coordination WFL Upper Extremity Sensation WFL BUE Upper Extremity Strength Decreased BUE ADL-Treatment Eating (QC): 7 (states he is not hungry. Pt's food placed to side) On/Off Footwear (QC): 1 Other Treatments Pt completes orientation questions- alert/ oriented. Pt agreeable to OT tx session, OT role explained. Pt states he is aggravated that he has been in bed and unable to get up. Pt explained monitors and desire to examine pt at rest. Pt's heart in afib, variable from 124 to 108 throughout talking/ UE movement session. Pt's daughter present, provides some hx due to pt's VIEJAS. Pt has been at [facility], Mod I/ SBA with ADLs. Pt experienced SOB/ LPE. Pt and OT agree to continue treatments and focus on IND within ADL and UE strength for higher functional IND. Pt and daughter's questions answered, all needs met, pt left in bed with call light in reach, pt's nurse notified of pt position. Education OT Patient Education: Correct positioning, Instructions to caregiver, Modified ADL techniques, Safety issues Teaching Recipient: Patient, Family Teaching Methods: Demonstration, Discussion Response to Teaching: Verbalize Understanding, Return Demonstration OT Sales Representative [employer] Goals Sales Representative Public Util[employer] Goals Time Frame: Jan 07, 2020 Eating (QC): 6 Oral Hygiene (QC): 6 Toileting Hygiene (QC): 4 Shower/Bathe Self (QC): 4 Upper Body Dressing (QC): 5 Lower Body Dressing (QC): 4 On/Off Footwear (QC): 3 Additional Goals: 1-Demonstrate ADL Tasks, 2-Verbalize Understanding, 3- ImproveStrength/[place] 1=Demonstrate adherence to instructed precautions during ADL tasks. 2=Patient will verbalize/demonstrate understanding of assistive devices/modifications for ADL. 3=Patient will improve strength/tolerance for activity to enable patient to perform ADL's. OT Education/Plan Problem List/Assessment Assessment: Decreased Activ Tolerance, Decreased UE Strength, Impaired I ADL's, Impaired Self-Care Skills Discharge Recommendations Plan/Recommendations: Continue POC Therapy Discharge Recommendati: 24 Hour Supervision Treatment Plan/Plan of Care Treatment,Training & Education: Yes Patient would benefit from OT for education, treatment and training to promote independence in ADL's, mobility, safety and/or upper extremity function for ADL's. Plan of Care: ADL Retraining, Caregiver Training, Functional Mobility, Group Exercise/Act as Ind, UE Funct Exercise/Act Treatment Duration: Jan 07, 2020 Frequency: 5 times per week Estimated Hrs Per Day: .25 hour per day Agreement: Yes Rehab Potential: Guarded Time/GCodes Start Time: 10:25 Stop Time: 10:40 Total Time Billed (hr/min): 15 Billed Treatment Time 1DAYANNA (15) SUZI MCADAMS OTR Dec 31, 2019 11:13
--- NOTE | 2019-12-31 11:32 | Physical Therapy Evaluation ---
PT Evaluation-General Medical Diagnosis Admission Date Dec 29, 2019 at 22:56 Medical Diagnosis: L PE/ SOB/ acute kidney injury Onset Date: Dec 29, 2019 Therapy Diagnosis Therapy Diagnosis: impaired mobility, strength, endurance, balance Height/Weight Height (Feet): 6 Height (Inches): 2.00 Weight (Pounds): 200 Weight (Ounces): 0.0 Precautions Precautions/Isolations: Fall Prevention, Standard Precautions Referral Physician: Neil Taveras DO Reason for Referral: Evaluation/Treatment Medical History Pertinent Medical History: Atrial Fib, Arthritis, CAD, COPD, DM, HTN, Renal Insufficiency Reviewed History: Yes Social History Home: Single Level Current Living Status: Spouse Entry Into Home: Level Entry Prior Prior Level of Function SCALE: Activities may be completed with or without assistive devices. 0-Yrzqwaobbw-afqgudj completes the activity by him/herself with no assistance from a helper. 5-Set-up or Clean-up Assistance-helper sets up or cleans up; patient completes activity. [place] assists only prior to or following the activity. 4-Supervision or Touching Assistance-helper provides verbal cues and/or touching/steadying and/or contact guard assistance as patient completes activity. Assistance may be provided throughout the activity or intermittently. 3-Partial/Moderate Assistance-helper does LESS THAN HALF the effort. [place] lifts, holds or supports trunk or limbs, but provides less than half the effort. 2-Substantial/Maximal Assistance-helper does MORE THAN HALF the effort. [place] lifts or holds trunk or limbs and provides more than half the effort. 8-Wucolpqcf-hshadr does ALL the effort. Patient does none of the effort to complete the activity. Or, the assistance of 2 or more helpers is required for the patient to complete the activity. If activity was not attempted, code reason: 7-Patient Refused. 9-Not Applicable-not attempted and the patient did not perform the activity before the current illness, exacerbation or injury. 10-Not Attempted due to Environmental Limitations-(lack of equipment, weather restraints, etc.). 88-Not Attempted due to Medical Conditions or Safety Concerns. Bed Mobility: 6 Transfers (B,C,W/C): 6 Gait: 6 Indoor Mobility (Ambulation): Independent PT Evaluation-Current Subjective Patient getting up from bed just as PT goes into room, nurse and family member are assisting. Patient has no complaints of pain, agrees to PT. Pt/Family Goals none stated Objective Patient Orientation: Person Attachments: Hansen Catheter ROM/Strength ROM Lower Extremities WNL Strength Lower Extremities 4/5 gross BLE Sensory Hearing: Impaired Hand Dominance: Right Sensation Right Lower Extremit: Intact Sensation Left Lower Extremity: Intact Transfers Sit to Stand (QC): 3 Chair/Ird-ou-Ndhcc Xfer(QC): 3 Mod assist for transfer, patient needs assist with balance, cues for direction and safety during transfer. Very unsteady. Gait Does the Patient Walk?: Yes Mode of Locomotion: Walk Anticipated Mode of Locomotion: Walk Distance: 3' Gait Assistive Device: FWW Comments/Gait Description unsteady ambulation, needs min to mod assist with balance even when using a walker. Balance Sitting Static: Fair Sitting Dynamic: Fair Standing Static: Poor Standing Dynamic: Poor Treatment BLE exercisese x10 (AP, LAQ) Assessment/Needs Patient has impaired mobility, strength, endurance, balance. Patient very SOB, has labored breathing just sitting in the recliner. Nurse in room to see this. Rehab Potential: Guarded PT Program Developer Goals Mcc Goals PT Mcc Goals Time Frame: Jan 07, 2020 Roll Left & Right (QC): 4 Sit to Lying (QC): 4 Lying-Sitting on Side/Bed(QC): 4 Sit to Stand (QC): 4 Chair/Ibc-fx-Bvfpa Xfer(QC): 4 Walk 10 feet (QC): 4 PT Plan Problem List Problem List: Activity Tolerance, Functional Strength, Safety, Balance, Gait, Transfer, Bed Mobility Treatment/Plan Treatment Plan: Continue Plan of Care Treatment Plan: Bed Mobility, Education, Functional Activity Mohsen, Functional Strength, Gait, Safety, Therapeutic Exercise, Transfers Treatment Duration: Jan 07, 2020 Frequency: 6 times per week Estimated Hrs Per Day: .25 hour per day Patient and/or Family Agrees t: Yes Safety Risks/Education Patient Education: Gait Training, Transfer Techniques, Correct Positioning, Safety Issues Teaching Recipient: Patient Teaching Methods: Demonstration, Discussion Response to Teaching: Reinforcement Needed Discharge Recommendations Plan Patient will perform bed mobility and transfer training, balance and endurance training, functional strengthening, stair training, gait training, and ed ucation, to improve functional mobility and independence at home. Therapy Discharge Recommendati: Other, See Comments (NH), Home & Family Time/GCodes Time In: 1120 Time Out: 1130 Total Billed Treatment Time: 10 Total Billed Treatment 1 visit MIKE KNAPP PT Dec 31, 2019 11:32
[2019-12-31] MEDS: SODIUM BICARBONATE 8.4% VIAL 100 MEQ in 1/2 NS IV SOLUTION 1,000 ML IV SCH ×2 (12:30→20:25)
--- NOTE | 2019-12-31 12:48 | Diagnostic Imaging Report ---
PROCEDURE: MR imaging abdomen without contrast. TECHNIQUE: Multiplanar, multisequence MR imaging of the abdomen was performed without contrast. DATE: December 31, 2019. INDICATION: 84-year-old male, cirrhosis. COMPARISON: CT chest, abdomen and pelvis December 30, 2019. FINDINGS: The study is nondiagnostic for evaluation of hepatocellular carcinoma and limited in assessment for additional evaluation of the abdominal organs and parenchyma and vasculature given lack of intravenous contrast. There are marked motion limitations of the exam. The liver does not drop signal on the out of phase images to suggest diffuse fatty infiltration of the liver. The liver is not enlarged. The outer liver contours are very mildly nodular which could correlate with cirrhosis. Based on motion limited noncontrast T1 and T2-weighted sequences, there is no identified liver lesion. There is cholelithiasis better appreciated on recent CT imaging. There are no findings to specifically suggest acute cholecystitis. There is no identified intrahepatic or extrahepatic bile duct dilation. Very limited noncontrast evaluation of the pancreas is unremarkable. The spleen is not enlarged. The adrenal glands are grossly unremarkable. There are multiple T2 hyperintense renal lesions bilaterally which are not well characterized on this exam. There is no hydronephrosis. There is an incompletely imaged large volume ascites. There is an incompletely imaged at least moderate left pleural effusion and small right pleural effusion. There is generalized subcutaneous edema. IMPRESSION: 1. Marked limitations of the exam relating to the lack of postcontrast imaging as well as degree of motion artifact. 2. Mildly nodular outer liver contours which may potentially correlate with cirrhosis. There is no splenomegaly. There is a large volume ascites. 3. No identified biliary ductal dilation. 4. Multiple T2 hyperintense renal lesions not well characterized on this study. 5. Incompletely imaged at least moderate left pleural effusion and small right pleural effusion. Generalized subcutaneous edema. Dictated by: Dictated on workstation # [id number]
[2019-12-31] MEDS ORDERED: AMIO200T4 PO (14:37)
[2019-12-31] MEDS ORDERED: TMSL.4C PO (14:41)
[2019-12-31] MEDS ORDERED: ALB0.5V INH (14:42)
[2019-12-31] MEDS ORDERED: AMLO5TAB9 PO (14:42)
--- NOTE | 2019-12-31 15:09 | NUR ---
SPOKE WITH THE PT'S FAMILY AND CALLED [facility] (HE WAS RECENTLY ADMITTED TO THAT FACILITY) TO COMPLETE THE MED REC. WHEN PT WAS DISCHARGED EARLIER THIS MONTH THEY HAD GIVEN HIM AMLODIPINE 10MG 1 TAB DAILY- HOWEVER WHEN HE WAS AT THE [facility] IT WAS CHANGED TO 5 MG 1 TAB DAILY DUE TO DUE BLOOD PRESSURE. THE 10 MG TAB WAS GIVEN TODAY, BUT I HAVE CORRECTED THE MED REC AND LET THE [facility] KNOW SO THE INFORMATION CAN BE PASSED ON TO THE .
[2019-12-31] MEDS: TAMSULOSIN 0.4 MG (FLOMAX) CAP PO SCH (18:07)
[2020-01-01] MEDS: RT-ALBUTEROL/IPRATROPIUM 3 ML (DUONEB) VIAL INH SCH ×4 (02:10→15:07)
[2020-01-01 03:16] VITALS: BP 128/75
[2020-01-01] MEDS: SODIUM BICARBONATE 8.4% VIAL 100 MEQ in 1/2 NS IV SOLUTION 1,000 ML IV SCH ×2 (03:47→11:39)
[2020-01-01 04:28] LABS: BASOPHILS % (AUTO) 0 % (0-10); EOSINOPHILS % (AUTO) 0 % (0-10); HEMATOCRIT 25 % (40-54); HEMOGLOBIN 8.1 G/DL (13.3-17.7); LYMPHOCYTES # (AUTO) 0.2 X 10^3 (1.0-4.0); LYMPHOCYTES % (AUTO) 7 % (12-44); MEAN CORPUSCULAR HEMOGLOBIN 31 PG (25-34); MEAN CORPUSCULAR HGB CONC 32 G/DL (32-36); MEAN CORPUSCULAR VOLUME 95 FL (80-99); MEAN PLATELET VOLUME 10.9 FL (7.4-10.4); MONOCYTES # (AUTO) 0.1 X 10^3 (0.0-1.0); MONOCYTES % (AUTO) 6 % (0-12); NEUTROPHILS % (AUTO) 87 % (42-75); PLATELET COUNT 85 10^3/uL (130-400); RED CELL DISTRIBUTION WIDTH 15.6 % (10.0-14.5); WHITE BLOOD COUNT 2.3 10^3/uL (4.3-11.0)
[2020-01-01 04:52] LABS: CREATININE SERUM 4.48 MG/DL (0.60-1.30); MAGNESIUM 1.8 MG/DL (1.6-2.4); PHOSPHORUS 4.6 MG/DL (2.3-4.7); POTASSIUM 4.5 MMOL/L (3.6-5.0)
[2020-01-01] MEDS: PIPERACILLIN/TAZOBACTAM (BULK) 4.5 GM in NS (IVPB) 100 ML IV SCH ×2 (05:15→17:12)
[2020-01-01] MEDS: methylPREDNISolone 40 MG/ML (Solu-MEDROL) VIAL IV SCH ×3 (05:15→17:36)
--- NOTE | 2020-01-01 06:06 | Pulmonary Progress Note ---
Subjective Time Seen by a Provider: 05:59 Sepsis Event Evaluation Height, Weight, BMI Height: 6'2.00" Weight: 200lbs. 0.0oz. [id number]; 28.54 BMI Method:Estimated Focused Exam Lactate Level 12/30/19 06:41: Lactic Acid Level 1.29 Exam Exam Vital Signs Date Time Temp Pulse Resp B/P (MAP) Pulse Ox O2 Delivery O2 Flow Rate FiO2 01/01/20 03:27 Room Air 01/01/20 03:16 37.0 99 22 128/75 (92) 95 Room Air 01/01/20 02:10 96 Room Air 01/01/20 01:51 92 01/01/20 00:00 Room Air 12/31/19 23:08 36.3 101 24 136/79 (98) 95 Room Air 12/31/19 23:00 100 23 139/76 (97) 95 Room Air 12/31/19 21:27 96 Room Air 12/31/19 21:00 Room Air 12/31/19 21:00 105 16 93 Room Air 12/31/19 20:00 109 33 98 Room Air 12/31/19 20:00 Room Air 12/31/19 19:00 123 16 101/72 (82) 100 Room Air 12/31/19 18:42 117 12/31/19 18:20 99 Room Air 12/31/19 16:00 36.3 114 30 109/85 (93) 96 Room Air 12/31/19 16:00 36.4 117 99 21 12/31/19 16:00 96 Room Air 12/31/19 15:03 99 Room Air 12/31/19 12:42 113 12/31/19 12:00 36.4 12/31/19 12:00 95 Room Air 12/31/19 11:15 Room Air 12/31/19 11:06 95 Room Air 12/31/19 09:00 95 Room Air 12/31/19 08:00 96 Room Air 12/31/19 08:00 87 15 149/103 (118) 92 Vapotherm 30.00 21.00 12/31/19 08:00 36.6 12/31/19 08:00 36.1 12/31/19 07:34 94 Vapotherm 30.00 21 12/31/19 06:40 77 I & O 01/01/20 07:00 Intake Total 2970 ml Output Total 750 ml Balance 2220 ml Height & Weight Height: 6'2.00" Weight: 200lbs. 0.0oz. [id number]; 28.54 BMI Method:Estimated General Appearance: No Apparent Distress, Chronically ill HEENT: PERRL/EOMI, Normal ENT Inspection, Pharynx Normal Neck: Normal Inspection, Supple Respiratory: Decreased Breath Sounds, Other (on Vapotherm) Cardiovascular: Regular Rate, Rhythm, No Murmur Capillary Refill: Less Than 3 Seconds Gastrointestinal: normal bowel sounds, non tender, soft Extremity: Pedal Edema, Other (lorraine hose in place on the left leg) Neurologic/Psychiatric: Alert, Other (oriented to person and place) Skin: Normal Color, Warm/Dry, Other (Facial telangiectasias) Lymphatic: No Adenopathy Results Lab Laboratory Tests 12/31/19 03:20 01/01/20 04:15 Assessment/Plan Assessment/Plan Moderate left pleural effusion p -s/p thoracentesis -Check Ct of chest after thoracentesis -Graves culture -Check MRSA nasal swab -Check bilateral dopplers of LE -Check ABG Pneumonia/Atelectasis -Continue Zosyn and Vanco -Check UA and strep/legionella Ag Ascities with possible hepatic mass per CT of abd - MRI of abdomen Leukopenia r/o sepsis Pancytopenia/thrombocytopenia -Check occult stool -doubt DIC however will check DIC panel and HIT abx CKD with metabolic acidosis and hyperkalemia -Baseline Cr 2.7 -check LA -Give 1 amp of bicarb and start bicarb gtt at 150 -D/C lasix Hx of Afib BPH Debility -PT/OT RIKI LICEA DO Jan 01, 2020 06:06
[2020-01-01] MEDS: CALCIUM ACETATE 667 MG CAP (PHOSLO) PO SCH ×3 (06:41→17:36)
[2020-01-01] MEDS ORDERED: TROUGH ORDER-PHARMACY XX NR (07:00)
--- NOTE | 2020-01-01 07:32 | Diagnostic Imaging Report ---
EXAMINATION: Chest 1 view HISTORY: Congestive heart failure. Left-sided pleural effusion. COMPARISON: Chest radiograph on 12/31/2019. FINDINGS: There has been interval decrease in a moderate left pleural effusion with continued left basilar opacities. Patchy opacities are also seen in the right perihilar and basilar region. No large pneumothorax. Stable prominent cardiac silhouette. There is calcified aortic atherosclerotic plaque. IMPRESSION: 1. Decreased moderate left pleural effusion with bibasilar opacities likely representing atelectasis. 2. Stable cardiomegaly. Dictated by: Dictated on workstation # [id number]
[2020-01-01] MEDS: ASPIRIN E.C. 81 MG (ECOTRIN) TAB PO SCH (08:23)
[2020-01-01] MEDS: amLODIPine 10 MG (NORVASC) TAB PO SCH (08:24)
[2020-01-01] MEDS: PANTOPRAZOLE 40 MG (PROTONIX) VIAL IV SCH (08:24)
[2020-01-01] MEDS: AMIODARONE 200 MG (CORDARONE) TAB PO SCH (08:24)
--- NOTE | 2020-01-01 08:33 | Discharge Summary ---
Diagnosis/Chief Complaint Date of Admission Dec 29, 2019 at 22:56 Date of Discharge Admission Diagnosis Acute kidney injury superimposed on chronic kidney disease Primary Care Rosalinda Larsen MD Discharge Diagnosis (1) Acute kidney injury superimposed on chronic kidney disease Status: Acute (2) Pleural effusion on left Status: Acute (3) Metabolic acidosis Status: Acute (4) Pancytopenia Status: Acute (5) Hyperphosphatemia Status: Acute (6) Hyperkalemia Status: Acute (7) Hypertension Status: Chronic (8) Debility Status: Acute (9) Chronic atrial fibrillation Status: Acute Discharge Summary Discharge Physical Exam Allergies: Coded Allergies: bee pollen (Verified Allergy, Unknown, Anaphylaxis, 12/30/19) Vitals & I&Os Vital Signs Date Time Temp Pulse Resp B/P (MAP) Pulse Ox O2 Delivery O2 Flow Rate FiO2 01/01/20 15:07 97 Room Air 01/01/20 13:00 99 01/01/20 12:00 24 132/75 (94) 01/01/20 08:00 36.6 12/31/19 16:00 21 12/31/19 08:00 30.00 21.00 General Appearance: No Apparent Distress, Chronically ill Cardiovascular: Regular Rate, Rhythm, No Murmur Gastrointestinal: Normal Bowel Sounds, Soft Neurologic/Psychiatric: Alert, Other (oriented to person and place, very hard of hearing) Hospital Course Patient is an 84-year-old male with past medical history of chronic kidney disease who presented to outside ER due to shortness of breath and was admitted due to pleural effusion and acute kidney injury. He was found to have a creatinine of 1.4 on arrival and large pleural effusion. There was concern that this was due to CHF abdomen he was diuresed but echo was done and revealed an ejection fraction of 60 percent. He underwent a thoracentesis with Dr. Taveras. He then was started on bicarbonate drip due to metabolic acidosis from his renal failure. Despite aggressive measures his creatinine continued to worsen after an initial improvement. His creatinine at this time is 4.48 with a GFR of 13. His urine output is decreasing as well. I discussed with he, his , and his daughter regarding goals of care as he had originally declined dialysis but they'll he was like to discuss this with the forensic materials engineer and would be agreeable to dialysis if needed. I informed the family of my concern of his overall health and decline but they would still like to pursue aggressive measures for his kidney function. I called and spoke with the hospitalist Dr. Shaikh at [facility] who accepted him in transfer for nephrology evaluation and possible dialysis. Labs (last 24 hrs) Laboratory Tests 01/01/20 04:15: White Blood Count 2.3L, Red Blood Count 2.64L, Hemoglobin 8.1L, Hematocrit 25L, Mean Corpuscular Volume 95, Mean Corpuscular Hemoglobin 31, Mean Corpuscular Hemoglobin Concent 32, Red Cell Distribution Width 15.6H, Platelet Count 85L, Mean Platelet Volume 10.9H, Neutrophils (%) (Auto) 87H, Lymphocytes (%) (Auto) 7L, Monocytes (%) (Auto) 6, Eosinophils (%) (Auto) 0, Basophils (%) (Auto) 0, Neutrophils # (Auto) 2.0, Lymphocytes # (Auto) 0.2L, Monocytes # (Auto) 0.1, Eosinophils # (Auto) 0.0, Basophils # (Auto) 0.0, Sodium Level 140, Potassium Level 4.5, Chloride Level 107, Carbon Dioxide Level 21, Anion Gap 12, Blood Urea Nitrogen 63H, Creatinine 4.48H, Estimat Glomerular Filtration Rate 13, BUN/Creatinine Ratio 14, Glucose Level 179H, Calcium Level 8.0L, Phosphorus Level 4.6, Magnesium Level 1.8 01/01/20 10:00: Stool Occult Blood Immunoassay POSITIVEH Microbiology 12/30/19 Blood Culture - Preliminary, Resulted No growth 12/30/19 Gram Stain - Final, Resulted 12/30/19 Anaerobic Culture - Preliminary, Resulted No anaerobes isolated 12/30/19 Body Fluid Culture - Preliminary, Resulted No growth Patient resulted labs reviewed. Pending Labs Laboratory Tests 01/01/20 10:00: Stool Occult Blood Immunoassay POSITIVE Imaging: Reviewed Imaging Report Discussion & Recommendations Discharge Planning: >30 minutes discharge planning Discharge Home Medications: Active Scripts Active Reported Albuterol Sulfate 2.5 Mg/0.5 Ml Vial.neb 2.5 Mg INH Q4H Amlodipine Besylate 5 Mg Tablet 5 Mg PO DAILY Flomax (Tamsulosin HCl) 0.4 Mg Cap 0.4 Mg PO 1800 Amiodarone HCl 200 Mg Tablet 200 Mg PO DAILY Tylenol Arthritis (Acetaminophen) 650 Mg Tablet.er 650-1,300 Mg PO Q8H PRN Aspirin EC (Aspirin) 81 Mg Tablet. 81 Mg PO DAILY Instructions to patient/family Please see electronic discharge instructions given to patient. Clinical Quality Measures DVT/VTE Risk/Contraindication: Risk Factor Score Per Nursin RFS Level Per Nursing on Admit: 4+=Very High Copy Copies To 1: SADIE MCCARTHY MD Problem Qualifiers (1) Hypertension: Hypertension type: essential hypertension Qualified Codes: I10 - Essential (primary) hypertension DIALLO ACUNA MD Jan 01, 2020 08:33
--- NOTE | 2020-01-01 09:59 | Physical Therapy Daily Note ---
PT Daily Note-Current Subjective Patient is agreeable to therapy at this time but needs to go to the bathroom first. Appearance Patient in recliner with call light and bedside table within reach. Chair alarm in place but not activated at this time, informed nursing who said she would find one now. Mental Status Patient Orientation: Person Attachments: Hansen Catheter, IV Transfers SCALE: Activities may be completed with or without assistive devices. 0-Zirtjezofl-pkawbld completes the activity by him/herself with no assistance from a helper. 5-Set-up or Clean-up Assistance-helper sets up or cleans up; patient completes activity. [place] assists only prior to or following the activity. 4-Supervision or Touching Assistance-helper provides verbal cues and/or touching/steadying and/or contact guard assistance as patient completes activity. Assistance may be provided throughout the activity or intermittently. 3-Partial/Moderate Assistance-helper does LESS THAN HALF the effort. [place] lif ts, holds or supports trunk or limbs, but provides less than half the effort. 2-Substantial/Maximal Assistance-helper does MORE THAN HALF the effort. [place] lifts or holds trunk or limbs and provides more than half the effort. 8-Agbbcfiuw-rinwsp does ALL the effort. Patient does none of the effort to complete the activity. Or, the assistance of 2 or more helpers is required for the patient to complete the activity. If activity was not attempted, code reason: 7-Patient Refused. 9-Not Applicable-not attempted and the patient did not perform the activity before the current illness, exacerbation or injury. 10-Not Attempted due to Environmental Limitations-(lack of equipment, weather restraints, etc.). 88-Not Attempted due to Medical Conditions or Safety Concerns. Roll Left & Right (QC): 2 Lying to Sitting/Side of Bed(Q: 2 Sit to Stand (QC): 3 Chair/Sdg-eg-Ydnug Xfer(QC): 4 Toilet Transfer (QC): 4 Patient is DEP with toileting hygiene. Gait Training Does the Patient Walk?: Yes Distance: 4' Gait Assistive Device: FWW Patient is unsteady while moving around, patient walked very short distance within room for transfer purposes only. Treatments Bed mobility, transfers, ambulation, toileting Assessment Current Status: Fair Progress Patient has heavy breathing while moving but tolerates transfers well. O2 remain around 97% throughout treatment session. Patient needs close guarding and careful cues for direction. PT Prison Goals Prison Goals PT Prison Goals Time Frame: Jan 07, 2020 Roll Left & Right (QC): 4 Sit to Lying (QC): 4 Lying-Sitting on Side/Bed(QC): 4 Sit to Stand (QC): 4 Chair/Ckf-fg-Phkdc Xfer(QC): 4 Walk 10 feet (QC): 4 PT Plan Problem List Problem List: Activity Tolerance, Functional Strength, Safety, Balance, Gait, Transfer, Bed Mobility, ROM Treatment/Plan Treatment Plan: Continue Plan of Care Treatment Plan: Bed Mobility, Education, Functional Activity Mohsen, Functional Strength, Gait, Safety, Therapeutic Exercise, Transfers Treatment Duration: Jan 07, 2020 Frequency: 6 times per week Estimated Hrs Per Day: .25 hour per day Patient and/or Family Agrees t: Yes Safety Risks/Education Patient Education: Gait Training, Transfer Techniques, Correct Positioning, Safety Issues Teaching Recipient: Patient Teaching Methods: Demonstration, Discussion Response to Teaching: Reinforcement Needed Time/GCodes Time In: 937 Time Out: 943 Total Billed Treatment Time: 16 Total Billed Treatment 1 visit FA 16' MIKE OSPINA PT Jan 01, 2020 09:59
--- NOTE | 2020-01-01 10:55 | NUR ---
Pastoral care visit, pt in bedside chair at his side, son also present. Pt stated it was to late for him to get in a relationship with God. He is very hard of saxena, difficult to communicate with. I shared it is never to late and he agreed. I offered prayer and support, he expressed appreciation for visit.
[2020-01-01 12:00] VITALS: BP 132/75
--- NOTE | 2020-01-01 14:16 | Occ Therapy Progress Note ---
Therapy Progress Note Attempted OT treatment at 1400. Pt just back to bed with assist from nursing. Pt declined therapy at this time secondary to fatigue. RN and pt's spouse state pt should be transferring to outside facility. Pt resting in bed with needs met and spouse present after session. Will continue to follow. 1, visit MARY LOU BAH OT Jan 01, 2020 14:16
--- NOTE | 2020-01-01 14:40 | NUR ---
THIS NURSE NOTIFIED DR ACUNA PT HAD POSITIVE OCCULT STOOL. ORDER GIVEN TO HOLD HEPARIN. THIS NURSE ALSO NOTIFIED DR ACUNA PT URINE OUTPUT HAS BEEN LOW. PT HAS ONLY HAD 50 ML OF URINE OUT THE LAST FOUR HOURS. ORDERS GIVEN TO MONITOR URINE OUTPUT FOR NOW.
[2020-01-01 16:00] VITALS: BP 142/77
[2020-01-01] MEDS: TAMSULOSIN 0.4 MG (FLOMAX) CAP PO SCH (17:36)
--- NOTE | 2020-01-01 17:59 | NUR ---
THIS NURSE CALLED REPORT TO MARY LOU JOHNSON AT [facility]. EMS NOTIFIED AND ON THERE WAY.
[2020-01-01 18:55] VITALS: BP 142/77
== END 2020-01-01 18:55 | disposition short-term general hospital (02) | DRG 186 ==
LOC: ICU 22:56
PROVIDERS: ADMIT Internal Medicine; ATTEND Internal Medicine
PROC: 0W9B3ZX Drainage of Left Pleural Cavity, Percutaneous Approach, Diagnostic (ICD-10-PCS; principal; 2019-12-30)
DX: J90 Pleural effusion, not elsewhere classified (principal); N17.9 Acute kidney failure, unspecified; I12.9 Hypertensive chronic kidney disease with stage 1 through stage 4 chronic kidney disease, or unspecified chronic kidney disease; N18.4 Chronic kidney disease, stage 4 (severe); E87.2 Acidosis; J18.9 Pneumonia, unspecified organism; K76.6 Portal hypertension; D61.818 Other pancytopenia; Z66 Do not resuscitate; I48.20 Chronic atrial fibrillation, unspecified; J98.11 Atelectasis; R18.8 Other ascites; E87.5 Hyperkalemia; E83.39 Other disorders of phosphorus metabolism; K74.60 Unspecified cirrhosis of liver; J42 Unspecified chronic bronchitis; R16.1 Splenomegaly, not elsewhere classified; R79.1 Abnormal coagulation profile; N40.0 Benign prostatic hyperplasia without lower urinary tract symptoms; R53.81 Other malaise; R40.0 Somnolence; E78.00 Pure hypercholesterolemia, unspecified; E11.9 Type 2 diabetes mellitus without complications; M19.91 Primary osteoarthritis, unspecified site; Z86.73 Personal history of transient ischemic attack (TIA), and cerebral infarction without residual deficits; Z96.651 Presence of right artificial knee joint; Z96.652 Presence of left artificial knee joint; Z87.891 Personal history of nicotine dependence
CPT/HCPCS: 36415; 36600; 71045; 71250; 74176; 74181; 80048; 80053; 81000; 82274; 82805; 82945; 83605; 83615; 83735; 83986; 84100; 84157; 85025; 85379; 85384; 85610; 85730; 86022; 87040; 87070; 87075; 87205; 87449; 87899; 89051; 93306; 93970; 94640

== ENCOUNTER 2020-06-18 15:27 | Emergency (ER) | payer MEDICARE ==
[~2020-06-18] VITALS: Ht 182.9 cm; Wt 84.1 kg
[~2020-06-18 15:27] MED LIST changes: +ALB0.5V INH; -WARF5TAB PO; +WARF5TAB2 PO
--- NOTE | 2020-06-18 15:54 | ED General ---
General Chief Complaint: General Problems/Pain Stated Complaint: DIZZINESS Source of Information: Patient Exam Limitations: No Limitations History of Present Illness Date Seen by Provider: Jun 18, 2020 Time Seen by Provider: 15:53 Initial Comments To ER from for the [facility] dialysis center. He completed his dialysis treatment today but at the end of it began feeling dizzy and lightheaded especially upon standing. Denies chest pain or shortness of breath. he does have known chronic a-fib, not anticoagulated. Timing/Duration: 1-2 Days Severity: Moderate Associated Systoms: Denies Symptoms, Weakness Allergies and Home Medications Allergies Coded Allergies: bee pollen (Verified Allergy, Unknown, Anaphylaxis, 12/30/19) Home Medications Acetaminophen 650 Mg Tablet.er, 650-1,300 MG PO Q8H PRN for PAIN-MILD, (Reported) Albuterol Sulfate 2.5 Mg/0.5 Ml Vial.neb, 2.5 MG INH Q4H, (Reported) Amiodarone HCl 200 Mg Tablet, 200 MG PO DAILY, (Reported) Amlodipine Besylate 5 Mg Tablet, 5 MG PO DAILY, (Reported) Aspirin 81 Mg Tablet.dr, 81 MG PO DAILY, (Reported) Tamsulosin HCl 0.4 Mg Cap, 0.4 MG PO 1800, (Reported) Patient Home Medication List Home Medication List Reviewed: Yes Review of Systems Review of Systems Constitutional: see HPI, weakness EENTM: see HPI Respiratory: no symptoms reported; No dyspnea on exertion, No short of breath Cardiovascular: no symptoms reported Genitourinary: no symptoms reported Musculoskeletal: no symptoms reported Skin: no symptoms reported Psychiatric/Neurological: No Symptoms Reported Hematologic/Lymphatic: No Symptoms Reported Immunological/Allergic: no symptoms reported Past [id number] Hx Patient Social History Type Used: Cigarettes Former Smoker, Quit: Dec 29, 1979 2nd Hand Smoke Exposure: No Recent Foreign Travel: No Contact w/Someone Who Travel: No Recent Hopitalizations: Yes Immunizations Up To Date Tetanus Booster (TDap): Less than 5yrs PED Vaccines UTD: No Date of Pneumonia Vaccine: Aug 13, 2018 Date of Influenza Vaccine: Oct 13, 2019 Seasonal Allergies Seasonal Allergies: No Past Medical History Surgeries: Yes (BILATERAL KNEE REPLACEMENTS) Appendectomy, Joint Replacement, Orthopedic Respiratory: No Chronic Bronchitis Currently Using CPAP: No Currently Using BIPAP: No Cardiac: Yes Atrial Fibrillation, High Cholesterol, Hypertension Neurological: No Stroke Reproductive Disorders: No Sexually Transmitted Disease: No HIV/AIDS: No Genitourinary: Yes Renal Failure Gastrointestinal: No Musculoskeletal: No Arthritis 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 0.0oz. [id number]; 28.54 BMI Method:Estimated General Appearance: No Apparent Distress, WD/WN, Chronically ill, Other (Very hard of hearing, very pleasant. No distress. Heart rate atrial fibrillation rate of 130, blood pressure 109/91,) Eyes: Bilateral Eye Normal Inspection, Bilateral Eye PERRL, Bilateral Eye EOMI Neck: Full Range of Motion, Normal Inspection Respiratory: Normal Breath Sounds, No Accessory Muscle Use, No Respiratory Distress, Other (diminished left lower lobe but denies short of breath. ) Cardiovascular: Irregularly Irregular, Tachycardia Gastrointestinal: Non Tender, Soft Extremity: Normal Capillary Refill, Normal Inspection Neurologic/Psychiatric: Alert, Oriented x3 Skin: Normal Color, Warm/Dry Progress/Results/Core Measures Suspected Sepsis SIRS Temperature: Pulse: Respiratory Rate: Laboratory Tests 06/18/20 15:53: White Blood Count 4.3 Blood Pressure / Mean: Laboratory Tests 06/18/20 15:53: Creatinine 1.13, INR Comment 1.0, Platelet Count 129L, Total Bilirubin 1.3H Results/Orders Lab Results Laboratory Tests Test 06/18/20 15:53 06/18/20 17:50 Range/Units White Blood Count 4.3 4.3-11.0 10^3/uL Red Blood Count 3.78 L 4.35-5.85 10^6/uL Hemoglobin 12.2 L 13.3-17.7 G/DL Hematocrit 36 L 40-54 % Mean Corpuscular Volume 96 80-99 FL Mean Corpuscular Hemoglobin 32 25-34 PG Mean Corpuscular Hemoglobin Concent 34 32-36 G/DL Red Cell Distribution Width 16.3 H 10.0-14.5 % Platelet Count 129 L 130-400 10^3/uL Mean Platelet Volume 9.4 7.4-10.4 FL Neutrophils (%) (Auto) 46 42-75 % Lymphocytes (%) (Auto) 27 12-44 % Monocytes (%) (Auto) 22 H 0-12 % Eosinophils (%) (Auto) 5 0-10 % Basophils (%) (Auto) 1 0-10 % Neutrophils # (Auto) 2.0 1.8-7.8 X 10^3 Lymphocytes # (Auto) 1.2 1.0-4.0 X 10^3 Monocytes # (Auto) 0.9 0.0-1.0 X 10^3 Eosinophils # (Auto) 0.2 0.0-0.3 10^3/uL Basophils # (Auto) 0.0 0.0-0.1 10^3/uL Neutrophils % (Manual) 46 % Lymphocytes % (Manual) 24 % Monocytes % (Manual) 22 % Eosinophils % (Manual) 8 % Basophils % (Manual) 0 % Band Neutrophils 0 % Anisocytosis SLIGHT Prothrombin Time 13.5 12.2-14.7 SEC INR Comment 1.0 0.8-1.4 Activated Partial Thromboplast Time 84 H 24-35 SEC Sodium Level 138 135-145 MMOL/L Potassium Level 2.9 L 3.6-5.0 MMOL/L Chloride Level 99 98-107 MMOL/L Carbon Dioxide Level 31 21-32 MMOL/L Anion Gap 8 5-14 MMOL/L Blood Urea Nitrogen 10 7-18 MG/DL Creatinine 1.13 0.60-1.30 MG/DL Estimat Glomerular Filtration Rate > 60 BUN/Creatinine Ratio 9 Glucose Level 81 70-105 MG/DL Calcium Level 7.9 L 8.5-10.1 MG/DL Corrected Calcium 8.8 8.5-10.1 MG/DL Magnesium Level 1.9 1.6-2.4 MG/DL Total Bilirubin 1.3 H 0.1-1.0 MG/DL Aspartate Amino Transf (AST/SGOT) 40 H 5-34 U/L Alanine Aminotransferase (ALT/SGPT) 26 0-55 U/L Alkaline Phosphatase 167 H 40-136 U/L Myoglobin 118.5 H 10.0-92.0 NG/ML Troponin I 0.029 H < 0.028 <0.028 NG/ML Total Protein 6.9 6.4-8.2 GM/DL Albumin 2.9 L 3.2-4.5 GM/DL My Orders Orders - MACEY DUENAS APRN Cbc With Automated Diff (06/18/20 15:50) Magnesium (06/18/20 15:50) Chest 1 View, Ap/Pa Only (06/18/20 15:50) Ekg Tracing (06/18/20 15:50) Comprehensive Metabolic Panel (06/18/20 15:50) Myoglobin Serum (06/18/20 15:50) Protime With Inr (06/18/20 15:50) Partial Thromboplastin Time (06/18/20 15:50) O2 (06/18/20 15:50) Monitor-Rhythm Ecg Trace Only (06/18/20 15:50) Lipid Panel (06/19/20 06:00) Ed Iv/Invasive Line Start (06/18/20 15:50) Troponin I (06/18/20 15:50) Aspirin Chewable Tablet (Baby Aspirin Ch (06/18/20 16:00) Diltiazem Injection (Cardizem Injection) (06/18/20 16:00) Diltiazem Cd 24 Hr Capsule (Cardizem Cd (06/18/20 16:15) Manual Differential (06/18/20 15:53) Diltiazem Injection (Cardizem Injection) (06/18/20 16:45) Troponin I (06/18/20 17:45) Potassium Chloride (Tablet) (Klor Con Ta (06/18/20 18:00) Medications Given in ED Current Medications Medications Dose Ordered Sig/Eloy Route Start Time Stop Time Status Last Admin Dose Admin Aspirin 324 mg ONCE ONCE PO 06/18/20 16:00 06/18/20 16:01 DC 06/18/20 15:58 324 MG Diltiazem HCl 5 mg ONCE ONCE IVP 06/18/20 16:00 06/18/20 16:01 DC 06/18/20 15:59 5 MG Diltiazem HCl 5 mg ONCE ONCE IVP 06/18/20 16:45 06/18/20 16:46 DC 06/18/20 16:38 5 MG Potassium Chloride 40 meq ONCE ONCE PO 06/18/20 18:00 06/18/20 18:01 DC 06/18/20 17:53 40 MEQ Vital Signs/I&O 06/18/20 15:47 Temp 36.5 Pulse 125 Resp 20 B/P (MAP) 103/68 (80) Pulse Ox 96 O2 Delivery Room Air Capillary Refill : Departure Communication (Admissions) 1709-spoke with Dr. Friedman on-call for cardiology. He recommends checking a 2 hour troponin, continuing Cardizem CD 120 mg daily at home. At this time after a 10 mg Cardizem bolus IV and Cardizem 120 mg by mouth he is varying from rate of 87-105 and blood pressure 108/74. 1724-updated pts son Matthew on condition and plan. Hes hesitant to take pt home if theres a chance he could get worse. Unfortunately, pt is 85 on hemodialysis and everyday is a chance he could get worse. However he remains rate controlled. Id prefer to keep him out of the hospital away from COVID patients if possible so I would want better reason to admit him than temporary tachycardia. 184-Hr still 80-105 afib. BP 108, pt still feels better. Repeat troponin negative. Willdc to home. Impression Primary Impression: Atrial fibrillation with RVR Additional Impression: ESRD (end stage renal disease) on dialysis Disposition: HOME, SELF-CARE Condition: Stable Departure-Patient Inst. Decision time for Depature: 17:30 Referrals: ZAC GUPTA MD (PCP/Family) Primary Care Physician Patient Instructions: Atrial Fibrillation (DC) Add. Discharge Instructions: 1. Start the new medication as directed. Call Dr Gordon tomorrow to make an appointment for follow up. Return to ER for any worsening. All discharge instructions reviewed with patient and/or family. Voiced understanding. Scripts Diltiazem HCl (Cardizem Cd) 120 Mg Cap.er.24h 120 MG PO DAILY, #20 CAP Prov: MACEY DUENAS APRN 06/18/20 Copy Copies To 1: ZAC GUPTA MD; RICHI GORDON MD FACP FACC CCDS MACEY DUENAS APRN Jun 18, 2020 15:54
[2020-06-18] MEDS ORDERED: ASPIRIN 81 MG CHEW (CHILDREN'S ASA) PO ONE (16:00)
[2020-06-18 16:11] LABS: BASOPHILS % (AUTO) 1 % (0-10); EOSINOPHILS # (AUTO) 0.2 10^3/uL (0.0-0.3); EOSINOPHILS % (AUTO) 5 % (0-10); HEMATOCRIT 36 % (40-54); HEMOGLOBIN 12.2 G/DL (13.3-17.7); LYMPHOCYTES # (AUTO) 1.2 X 10^3 (1.0-4.0); LYMPHOCYTES % (AUTO) 27 % (12-44); MEAN CORPUSCULAR HEMOGLOBIN 32 PG (25-34); MEAN CORPUSCULAR HGB CONC 34 G/DL (32-36); MEAN CORPUSCULAR VOLUME 96 FL (80-99); MEAN PLATELET VOLUME 9.4 FL (7.4-10.4); MONOCYTES # (AUTO) 0.9 X 10^3 (0.0-1.0); MONOCYTES % (AUTO) 22 % (0-12); NEUTROPHILS % (AUTO) 46 % (42-75); PLATELET COUNT 129 10^3/uL (130-400); RED CELL DISTRIBUTION WIDTH 16.3 % (10.0-14.5); WHITE BLOOD COUNT 4.3 10^3/uL (4.3-11.0)
[2020-06-18] MEDS ORDERED: dilTIAZem120 MG (CARDIZEM CD) CAP PO SCH (16:15)
[2020-06-18 16:17] LABS: PROTHROMBIN TIME PATIENT 13.5 SEC (12.2-14.7)
--- NOTE | 2020-06-18 16:29 | Diagnostic Imaging Report ---
INDICATION: Chest pain. EXAMINATION: Portable chest at 4:25 p.m. FINDINGS: Right IJ central line tip projects over the SVC. Heart size and pulmonary vascularity are normal. There is a large left pleural effusion which has developed since 01/01/2020. IMPRESSION: Large left pleural effusion. Dictated by: Dictated on workstation # [id number]
--- OUTSIDE RECORDS SUMMARY | 2020-06-18 16:29 | XMS REPORT ---
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 [facility] [employer] Address [address] [address] Care Team Providers Care Proof Coins Inspector Name Role Phone ZAC LARSEN Unavailable LINNETTE GOLDSTEIN Unavailable NO, LOCAL PHYSICIAN Unavailable Unavailable Unavailable Unavailable Zac Larsen MD[facility] Unavailable Unavailable Zac Lasren MD, [facility] Unavailable Unavailable ZAC LARSEN Unavailable ZAC LARSEN MD Unavailable Unavailable ZAC LARSEN MD Unavailable Unavailable Zac Larsen MD, KALPESH PP Unavailable Zac Larsen [facility] CCM Unavailable HOLLI DO, CALE K Unavailable Unavailable FLAQUITA KELLY N Unavailable Unavailable LINNETTE GOLDSTEIN MD Unavailable Unavailable MORA OLMOS Unavailable Unavailable MORA OLMOS Unavailable Unavailable MORA BRADY PCP MORA BRADY Unavailable MORA BRADY Unavailable Unavailable MORA BRADY Unavailable Unavailable OLIVA FORRESTER MD Unavailable Unavailable LOCKWOOD DO, YOLANDA S Unavailable Unavailable LOCKWOOD DO, YOLANDA S Unavailable Unavailable RICHI CUNNINGHAM MA Unavailable Unavailable MACEY DUENAS APRN Unavailable Unavailable ZAC LARSEN MD Unavailable Unavailable ORENDER DO, NANCY S Unavailable Unavailable HOLLI DO, CALE K Unavailable Unavailable ZAC LARSEN MD Unavailable Unavailable GIOVANIGIANNIMILLI LAROSE Unavailable Unavailable CYNTHIA, CALE Unavailable Unavailable CYNTHIA, CALE Unavailable Unavailable PAONI, FROYLAN Unavailable Unavailable PAADRIANO, FROYLAN Unavailable Unavailable FROYLAN EUGENE Unavailable Unavailable SADIE MCCARTHY Unavailable Unavailable SADIE MCCARTHY Unavailable Unavailable SADIE MCCARTHY Unavailable Unavailable MACEY DUENAS Unavailable Unavailable HERON CURTIS MD Unavailable Unavailable HERON CURTIS MD Unavailable Unavailable JORDAN GARCIA Unavailable Unavailable BROWN SARITA Unavailable Unavailable BROWN SARITA Unavailable Unavailable Unavailable Unavailable Unavailable Unavailable Unavailable Unavailable Unavailable Unavailable Unavailable Unavailable Unavailable Unavailable Unavailable Unavailable Unavailable Unavailable Allergies Allergy Reported Allergen(s) Allergy Type Date of Reaction(s) Care Facility Classificati Onset Provider on Pollen Bee pollen Substance 12-30-2019 Anaphylaxis CALE Mari O [facility] ([facility] - sources) [place] ([id number]) Unclassified No Known Drug Allergies DA 01-14-2017 FLAQUITA KELLY Not (6 sources) Available ([id number]) Unclassified NO KNOWN DRUG ALLERGIES NO KNOWN [facility] (13 sources) DRUG LEISURE [facility] ALLERGIES of [facility] ([id number]) Unclassified NKANo Known Allergies CT 2007 CALE RE NO DO Not (1 source) Available ([id number]) Encounters Encounter Date Encounter Type Encounter Diagnosis Care Provider Facility Start: Patient encounter [facility] Di strict #1 02-29-2020 procedure of [facility] End: 02-29-2020 Start: Patient encounter [facility] Di strict #1 02-20-2020 procedure of [facility] End: 02-20-2020 Start: Evaluation and HERON CURTIS MD [facility] Via [facility] isti 12-29-2019 management of [facility] inpatient End: 01-01-2020 Start: Patient encounter [facility] Di strict #1 12-29-2019 procedure of [facility] End: 01-01-2020 Start: Patient encounter [facility] Di strict #1 12-26-2019 procedure of [facility] End: 12-26-2019 Start: Patient encounter [facility] Di strict #1 12-24-2019 procedure of [facility] End: 12-24-2019 Start: Patient encounter [facility] Di strict #1 12-24-2019 procedure of [facility] End: 12-24-2019 Start: Evaluation and YOLANDA LOCKWOOD DO [facility] isti 12-14-2019 management of [facility] inpatient End: 12-17-2019 Start: Patient encounter YOLANDA LOCKWOOD DO [facility] 12-14-2019 procedure [facility] End: 12-17-2019 Start: Evaluation and YOLANDA Jordan NGLOCKWOOD DO VC [facility] isti 12-13-2019 management of [facility] inpatient Start: Emergency department OLIVA FORRESTER MD [facility] V [facility] 12-13-2019 patient visit [facility] End: 12-13-2019 Start: Patient encounter MORA Anne-Marie Paul 07-02-2019 procedure Other Start: Patient encounter ROBERTO [facility] Di strict #1 12-14-2018 procedure of [facility] ([id number]) End: 12-15-2018 Start: Patient encounter SWEETIE PITT [facility] Di strict #1 12-07-2018 procedure of [facility] ([id number]) End: 12-07-2018 Start: Patient encounter SEAN [facility] D istrict #1 11-08-2018 procedure of [facility] ([id number]) End: 11-08-2018 Start: Office outpatient Pneumonia, Magalie Larsen MD, 09-21-2018 visit 25 minutes unspecified [facility] Start: Evaluation and Altered mental status ZAC GRAY Not Available ([id number]) 09-13-2018 management of Work Phone: inpatient End: 09-15-2018 Start: Patient encounter ZAC LARSEN MD Not Avai lable ([id number]) 09-13-2018 End: 09-15-2018 Start: Emergency department CALE HOLLI DO Not Avai lable ([id number]) 09-13-2018 patient visit Start: Evaluation and AZC LARSEN MD [facility] Via C [facility]risti 09-13-2018 management of [facility] inpatient End: 09-15-2018 Start: Patient encounter MACEY DUENAS Not Availab le ([id number]) 05-18-2018 Start: Emergency department MACEY DUENAS APRN [facility] 05-18-2018 patient visit [facility] End: 05-18-2018 Start: Evaluation and ZAC LARSEN MD Not Availab le ([id number]) 01-14-2017 management of inpatient End: 01-17-2017 Start: Patient encounter ZAC LARSEN MD Not Avai lable ([id number]) 01-14-2017 procedure End: 01-17-2017 Start: Emergency department CALE HOLLI DO Not Avai lable ([id number]) 01-14-2017 patient visit Start: Evaluation and ZAC LARSEN MD [facility] Via C [facility]risti 01-14-2017 management of [facility] inpatient End: 01-17-2017 Start: Patient encounter MORA OLMOS Not Availab le ([id number]) 01-07-2017 procedure End: 01-08-2017 Start: Evaluation and ZAC LARSEN MD [facility] Via Zach hristi 05-28-2016 management of [facility] inpatient End: 06-01-2016 Start: [facility] - 07-15-2014 Other Phone: Outpatient Start: Patient encounter RICHI MCWILLIAMS MA [place] [facility] 06-28-2014 procedure [facility] Start: Patient encounter RICHI MCWILLIAMS MA [place] [facility] 06-24-2014 procedure [facility] Start: Patient encounter MORA BRADY [facility] - 03-28-2014 procedure Other Phone: [facility] Start: Patient encounter FLAQUITA KELLY Not Availab le ([id number]) 10-11-2013 procedure Start: [facility] Office 07-05-2011 Other Patient encounter [facility] procedure Clinics ([id number]) Medical Equipment Procedure Code Equipment Code Equipment Original Equipment Iden tifier Dates Text Microlet Lancet Start: 05-18-2016 End: 11-13-2016 Microlet Lancet Start: 04-22-2015 End: 02-15-2016 Microlet Lancet End: 04-21-2015 Microlet Lancet Start: 04-28-2016 End: 10-24-2016 Microlet Lancet Start: 05-18-2016 End: 11-13-2016 Microlet Lancet Start: 04-22-2015 End: 02-15-2016 Microlet Lancet End: 04-21-2015 Microlet Lancet Start: 04-28-2016 End: 10-24-2016 Microlet Lancet Start: 05-18-2016 End: 11-13-2016 Microlet Lancet Start: 04-22-2015 End: 02-15-2016 Microlet Lancet End: 04-21-2015 Microlet Lancet Start: 04-28-2016 End: 10-24-2016 Microlet Lancet End: 04-21-2015 Microlet Lancet Start: 05-18-2016 End: 11-13-2016 Microlet Lancet Start: 04-28-2016 End: 10-24-2016 Microlet Lancet Start: 04-22-2015 End: 04-10-2016 Goals No Information Immunizations Immunizatio Immunization Notes Care Provider Facility n Date 02-20-2020 [facility] ([id number]) 12-07-2018 [facility] ([id number]) Interventions No Information Medications Medication Drug Dates Sig Sig (Original) Class(es) (Normalized) 8 hr acetaminophen 650 take 650-1300 Acetaminophen (Tylenol Arthritis) 650 Mg mg extended release oral mg by mouth Tablet.er 6 50-1300 Mg ORAL Every 8HRS as tablet every eight needed for Pain-Mil d (1 source) hours as needed for pain, then take 1 tablet by mouth as needed for pain Ascorbate Calcium End: take 1 tablet Ascorbate C alcium (Vitamin C) 500 Mg (Vitamin C) 500 Mg 09-13-2018 by mouth once Tablet, 50 0 Mg Oral Daily Discontinued Tablet, 500 Mg Oral daily (1 source) ascorbic acid 125 mg / Vitamin C Start: take 1 tablet V itron-C 65 mg iron- 125 mg iron carbonyl 65 mg 06-20-2019 by mouth three tablet,de layed release RxNorm: [id number] 1 delayed release oral times weekly Tablet(s) PO TIW (DO NOT TA KE WITH tablet End: CALCIUM/ MULTIVITAM IN OR MILK PRODUCTS) (2 sources) 03-15-2020 06/20/2019 03/15/20 20 Active azithromycin 250 mg oral Macrolide Start: take 1 tablet Azithromycin 250 Mg Tablet 250 Mg ORAL tablet Antimicrob 09-15-2018 by mouth once Daily 3 Tab 09/15/18 (1 source) ial daily Calcium Citrate/Vitamin End: Calcium Citra te/Vitamin D3 (Citracal + D D3 (Citracal + D Maximum 09-13-2018 Maximum Capl et) 1 Each Tablet, 1 Each Caplet) 1 Each Tablet, 1 Oral Twice A Day Discont inued Each Oral (1 source) cefdinir 300 mg oral Cephalospo Start: take 1 capsule Ce fdinir 300 Mg Capsule 300 Mg ORAL capsule rin 09-15-2018 by mouth twice Twice A Day 10 Cap 09/15/18 (1 source) Antibacter daily ial CEFTRIAXONE PREMIX IV Start: BAG IV 1 GM/50CC 12-24-2019 (ROCEPHIN PREMIX IV BAG) (1 source) End: 12-24-2019 fluticasone propionate Corticoste Start: take 1 spray(s) Flonase 50 mcg/actuation nasal 0.05 mg/actuat metered roid 03-29-2014 nasal route spr ay,suspension 10/29/2015 USE 1 SPRAY dose nasal spray twice daily IN EACH NOSTRIL TWO TIMES A DAY (4 sources) FUROSEMIDE VIAL INJ 40 Start: MG (LASIX VIAL) 12-29-2019 (1 source) End: 12-29-2019 Start: 12-29-2019 End: 12-29-2019 Iron,Carbonyl/Ascorbic Start: take 1 tablet Iron,C arbonyl/Ascorbic Acid (Iron Acid (Iron 100-Vitamin C 09-15-2018 by mouth three 100- Vitamin C Tablet) 1 Each Tablet 1 Tablet) 1 Each Tablet times weekly Each ORAL As D irected 90 Tab PT TO TAKE (1 source) THREE TIMES A WEEK (DO NOT TAKE WITH CALCIUM TAB/MUTIVITAMIN OR MILK PRODUCTS) 09/15/18 L. Acidophilus/Bifid. take 1 capsule L. Acidophilus /Bifid. Animalis Animalis (One-A-Day by mouth once (One-A-Day Trubi otics 2 Bill Cp) 1 Each Trubiotics 2 Bill Cp) 1 daily, then Capsule 1 Ca p ORAL Daily Each Capsule take 1 capsule (1 source) by mouth once daily, then take 2 capsules by mouth, then take 1 capsule by mouth Lactobacillus Probiotic oral RxNorm: 6205 oral No acidophilus Start Date Active (3 sources) LIDOCAINE 1% W/PRESV Start: W/EPI INJ (XYLOCAINE 12-07-2018 W/EPI & PRESERV) (1 source) End: 12-07-2018 Normal saline Start: (1 source) 12-24-2019 End: 12-24-2019 triamcinolone acetonide Corticoste Start: Triamc inolone Acetonide (Triamcinolone 5 mg/ml topical cream roid 09-15-2018 Acetonid e 0.5% Cream) 15 Gm Cream..g. 1 (1 source) Gm TOPICAL Twice A Day 45 G kenneth APPLY TO RASH ON CHEST/ABDOMEN AND BACK UNTIL HEALED, THEN USE NEEDED IF RASH REAPPEARS 09/15/18 Payers Date Payer Normalized Payer Policy ID MEDICARE MEDICARE Plan of Treatment Date Care Activity Detail Author Start: Development of care plan Pneumonia -hospital [facility] 11-15-2018 up -symptoms resolved -lungs ([id number]) clear -call if symptoms Work Phone: return HTN-controlled -no changes Anemia -continue oral iron M/W/F-repeat CBC in 1 month Generalized weakness -set up PT at [facility] Problems Active Problems Problem Problem Date Last Documented Episodic/Chr Provider Classificati Recorded Date onic on Acute and Ydujc-dc-lifbzbi renal failure ; Chronic ZAC unspecified Translations: [Chronic renal CRANST ON renal failure] failure (3 sources) Bacterial Streptococcal infection, Episodic HOL LY infection; unspecified site ; Translations: RANDI CUNNINGHAM MD unspecified [Bacteremia] site (16 sources) Calculus of Personal history of urinary calculi Episodic MACEY DUENAS urinary TOOL REPAIRER tract (21 sources) Coagulation Thrombocytopenia, unspecified Chronic BOBOSEAS MEDINAEW and hemorrhagic disorders (1 source) Coma; Somnolence Episodic HERON KIRSTEN stupor; and brain damage (9 sources) Congestive Heart failure, unspecified ; Chronic MACEY DUENAS heart Translations: [Heart failur e, failure; unspecified] nonhypertens wayne (4 sources) 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 without JOSE J VARGAS MD sis and angina pectoris other heart disease (10 sources) Deficiency Other pancytopenia Chronic ZAC and other CHAVA MOHR anemia (19 sources) Deficiency Iron deficiency anemia, unspecified Episodic ZAC and other CHAVA MOHR anemia (10 sources) Delirium Unspecified dementia without 04-14-2020 Chronic YOLANDA LOCKWOOD dementia and behavioral disturbance DO amnestic and other cognitive disorders (21 sources) Diseases of Other diseases of salivary glands Episodic MACEY DUENAS mouth; TOOL REPAIRER excluding dental (9 sources) Disorders of Other and unspecified 04-14-2020 Chronic LENORA AN LETICIA lipid hyperlipidemia ; Translatio ns: metabolism [Pure hypercholesterolemia, (24 sources) unspecified] Esophageal Esophageal reflux Chronic BOBAN MATH EW disorders (1 source) External Fall from bed, initial encounter Episodic ZCA cause codes: CHAVA MOHR Fall (6 sources) External Bedroom of unspecified Episodic ZAC cause codes: non-institutional (private) NALINI Schreiber MD Place of residence as the place of occurrence occurrence of the external cause (6 sources) External Striking against other object with Episodic ZAC cause codes: subsequent fall, initial encounter CHAVA MORH Struck by; against (6 sources) Fluid and Dehydration ; Translations: Episodic ZAC electrolyte [Dehydration] CHAVA MOHR disorders (22 sources) 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 CHAVA MOHR (6 sources) Hyperplasia Benign prostatic hyperplasia 04-14-2020 Chronic ZAC of prostate without lower urinary tract NALINI Schreiber MD (30 sources) symptoms ; Translations: [B enign prostatic hyperplasia with lower urinary tract symptoms] Hypertension Essential (primary) hypertension ; 04-14-2020 Chr roderick KELLY with Translations: [Hypertensive chronic complication kidney disease with stage 1 through s and stage 4 chronic kidney dise ase, or secondary unspecified chronic kidney disease] hypertension (24 sources) Influenza Influenza due to other identified 04-14-2020 Episo dic YOLANDA LOCKWOOD (24 sources) influenza virus with other DO respiratory manifestations ; Translations: [Influenza due to other identified influenza virus with gastrointestinal manifestations] Malaise and Weakness ; Translations: [Other 04-14-2020 Episodi c ZAC fatigue malaise and fatigue] CHAVA MOHR (21 sources) Occlusion or 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 CHAVA MOHR precerebral arteries (6 sources) Open wounds Laceration with foreign body of Episodic LYNIETA of head; other part of head, initial LEISURE neck; and encounter ; Translations: [ Open trunk wound of forehead, complica lorraine] (20 sources) Osteoarthrit Primary osteoarthritis, unspecified 04-14-2020 Ch pinky ZAC is site CHAVA MOHR (30 sources) Other penitentiary (current) use of inhaled Episodic PETER DUENAS aftercare steroids ; Translations: [penitentiary TOOL REPAIRER (9 sources) (current) use of aspirin] Other penitentiary (current) use of aspirin Episodic PETER DUENAS aftercare TOOL REPAIRER (7 sources) Other Encounter for removal of sutures Episodic ROBERTO VERGARA aftercare (24 sources) Other Encounter for removal of sutures Episodic ROBERTO VERGARA aftercare (2 sources) Other Long-term (current) use of Episodic B PEGGY KELLY aftercare anticoagulants (4 sources) Other terminal carman (current) use of Episodic H BI aftercare anticoagulants CHAVA MOHR (6 sources) Other terminal carman (current) use of oral Episodic ZAC aftercare hypoglycemic drugs CHAVA MOHR (6 sources) Other Personal history of transient 04-14-2020 Episodic ZAC circulatory ischemic attack (TIA), and cerebral CHAVA MOHR disease infarction without residual (30 sources) deficits Other Presence of artificial knee joint, 04-14-2020 Vending Manager maurice ZAC connective bilateral CHAVA MD tissue disease (21 sources) Other Presence of left artificial knee Chronic HERON KIRSTEN connective joint MD tissue disease (9 sources) Other Presence of right artificial knee Chronic HERON KIRSTEN connective joint MD tissue disease (9 sources) Other Repeated falls Episodic ZAC connective CHAVA MD tissue disease (12 sources) Other ear Unspecified hearing loss, Chronic HO LLY and sense unspecified ear CHAVA MD organ disorders (12 sources) Other ear Unspecified hearing loss Chronic JUAN ALBERTO HAEL and sense JOSE ANTONIO organ disorders (2 sources) Other ear Unspecified hearing loss, bilateral Chronic ZAC and sense CHAVA MD organ disorders (6 sources) Other ear Impacted cerumen Episodic MORA and sense JOSE ANTONIO organ disorders (6 sources) Other Other ascites Episodic HERON KIRSTEN gastrointest MD inal disorders (9 sources) Other Splenomegaly, not elsewhere Episodic HERON KIRSTEN gastrointest classified MD inal disorders (9 sources) Other Hypothermia, initial encounter Episodic ZAC injuries and CHAVA MOHR conditions due to external causes (10 sources) Other History of fall Episodic LYNIETA injuries and LEISURE conditions due to external causes (5 sources) Other History of falling Episodic LYNIETA injuries and LEISURE conditions due to external causes (22 sources) Other Head injury, unspecified Episodic ANGIE IETA injuries and LEISURE conditions due to external causes (4 sources) Other Open wound of face, unspecified Episodic LYNIETA injuries and site, without mention of LEISURE conditions complication due to external causes (3 sources) Other Heatstroke and sunstroke, initial Episodic ZAC injuries and encounter CHAVA MOHR conditions due to external causes (6 sources) Other Systemic inflammatory response Episodic ZAC injuries and syndrome (SIRS) of non-infectious C PAYAM MOHR conditions origin with acute organ dys function due to external causes (6 sources) Other Unspecified injury of right Episodic ZAC injuries and shoulder and upper arm, initial AZIZA VELAZCO MD conditions encounter due to external causes (6 sources) Other liver Portal hypertension Chronic HERON RE DMAN diseases (9 sources) Other liver Unspecified cirrhosis of liver Chronic HERON KIRSTEN diseases (9 sources) Other lower Personal history of other diseases Episodic ZAC respiratory of the respiratory system CHAVA MD disease (12 sources) Other lower Personal history of pneumonia 04-14-2020 Episodic YOLANDA LOCKWOOD respiratory (recurrent) DO disease (21 sources) Other Metabolic encephalopathy Chronic HOL LY nervous CHAVA MOHR system disorders (9 sources) Other Other disorders of phosphorus Chronic HERON KIRSTEN nutritional; metabolism endocrine; and metabolic disorders (9 sources) Other Other specified abnormal findings Episodic MILLI screening of blood chemistry ; Translations: YUNIOR for [Other abnormal blood chemi stry] suspected conditions (not mental disorders or infectious disease) (17 sources) Other upper Allergic rhinitis due to pollen Chronic MORA respiratory JOSE ANTONIO disease (2 sources) Pleurisy; Pleural effusion, not elsewhere Episodic HERON KIRSTEN pneumothorax classified ; Translations: MD ; pulmonary [Atelectasis] collapse (18 sources) Pneumonia Pneumonia ; Translations: Episodic HO LLY (except that [Pneumonia, unspecified organism] C PAYAM MOHR caused by tuberculosis or sexually transmitted disease) (22 sources) Residual Disorientation, unspecified 04-14-2020 Episodic ZAC codes; CHAVA MOHR unclassified (24 sources) Residual Do not resuscitate 04-14-2020 Episodic YOLANDA G ARNER codes; DO unclassified (20 sources) Residual Acquired absence of other organs Episodic MACEY DUENAS codes; TOOL REPAIRER unclassified (6 sources) 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 unspecified sites in spine CHAVA MOHR and related disease (6 sources) Screening Personal history of nicotine 04-14-2020 Episodic ZAC and history dependence CHAVA OMHR of mental health and substance abuse codes (33 sources) Septicemia Sepsis ; Translations: [Other 04-14-2020 Episodic ZAC (22 sources) specified sepsis] CHAVA Spondylosis; Cervicalgia Episodic MACEY DUENAS intervertebr TOOL REPAIRER al disc disorders; other back problems (9 sources) Superficial Contusion of scalp, initial Episodic ZAC injury; encounter ; Translations: CHAVA MOHR contusion [Contusion of other part of head, (19 sources) initial encounter] Unclassified Other abnormal findings in urine Episodic MILLI (5 sources) YUNIOR Unclassified *No known medical problems MORA (2 sources) JOSE ANTONIO Urinary Acute cystitis without hematuria 04-14-2020 Episod ic YOLANDA LOCKWOOD tract DO infections (21 sources) Past or Other Problems Problem Problem Date Last Documented Episodic/Chr Provider Classificati Recorded Date onic on Disorders of Pure hypercholesterolemia, ZAC lipid unspecified CHAVA MOHR metabolism (13 sources) External Fall from bed, initial encounter HO LLY cause codes: CHAVA MOHR Fall (4 sources) External Bedroom of unspecified ZAC cause codes: non-institutional (private) NALINI Schreiber MD Place of residence as the place of occurrence occurrence of the external cause (4 sources) Other Long-term (current) use of other Episodic BOBAN LETICIA aftercare medications (1 source) Other penitentiary (current) use of oral HOL LY aftercare hypoglycemic drugs CHAVA MOHR (4 sources) Other Muscle weakness (generalized) ; Episodic Zac connective Translations: [Muscle weakness Cran ston tissue (generalized)] disease (9 sources) Other upper Postnasal drip Episodic MORA respiratory JOSE ANTONIO infections (2 sources) Otitis media Dysfunction of Eustachian tube Episodic MORA and related JOSE ANTONIO conditions (2 sources) Septicemia Sepsis due to Streptococcus ZAC (1 source) pneumoniae CHAVA MOHR Unclassified Laceration without foreign body of LYNIETA (3 sources) other part of head LEISURE Unclassified Unspecified injury of head LYNIETA (4 sources) LEISURE Unclassified [id number] MORA (1 source) d_pastIllness_name_1 JOSE ANTONIO Unclassified [id number] MORA (1 source) 3_pastIllness_name_1 JOSE ANTONIO Unclassified CHRONIC ATRIAL FIBRILLATION, HERON CURTIS (9 sources) UNSPECIFIED MD Viral Other viral agents as the cause of Episodic YOLANDA LOCKWOOD infection diseases classified elsewhere DO (1 source) Procedures Date Procedure Procedure Detail Performing Cl inician Start: DRAINAGE OF LEFT HERON CURTIS MD 12-30-2019 PLEURAL CAVITY, PERC AP Start: Diagnostic ZAC Edith CHAVA 09-15-2018 radiography of Work Phone: chest, combined PA and lateral Start: Diagnostic ZAC Edith CHAVA 09-14-2018 radiography of Work Phone: chest, combined PA and lateral Start: Ct Head Wo-R/O CALE DE LA GARZA 09-13-2018 Stroke Work Phone: Start: Electrocardiograph CALE DE LA GARZA 09-13-2018 ic procedure Work Phone: Start: Plain chest X-ray CALE DE LA GARZA 09-13-2018 Start: Removal impacted MORA JOSE ANTONIO 05-22-2014 cerumen instrumentation unilat Results Test Name Value Interpreta Reference Facilit Date tion Range y Time not yet categorized on 2019-12-29 CULTURE SOURCE catheter Invalid [facility] Interpreta l 020 tion Code Distric 16:48-0 t [address] [place] [address] ([id number]) Electrocardiograms Complete [facility] recorded Interpreta l 020 tion Code Distric 15:49-0 t [address] [place] [address] ([id number]) FINAL CULTURE No Growth 48 hours Invalid Hospita 12-29 RESULTS Interpreta l 020 tion Code Distric 16:48-0 [address] [place] [address] ([id number]) MEDIA PLATED Setup at 21:57 on 12/29/2019 Invalid Hospita Interpreta l 020 tion Code Distric 16:48-0 [address] [place] [address] ([id number]) PRELIM CULTURE No Growth 24 hours Invalid [facility]ospita 12-09-2 RESULTS Interpreta l 020 tion Code Distric 16:48-0 t [address] [place] [address] ([id number]) Urine Volume Urine Volume Sufficient (10mL) Invalid Hospita Interpreta l 020 tion Code Distric 16:48-0 [address] [place] [address] ([id number]) Culture to follow Abnormal Hospita l 020 Distric 16:48-0 [address] [place] [address] ([id number]) laboratory on 2019-12-29 Albumin BCG dye 2.9 Low 3.6-5.1 Hospita [Mass/Vol] g/dL l 020 Distric 11:48-0 [address] [place] [address] ([id number]) Albumin BCG dye 2.9 Low 3.6-5.1 Hospita [Mass/Vol] g/dL l 020 Distric 15:49-0 [address] [place] [address] ([id number]) ALP [Catalytic 132 U/L High 35-130 U/L Hospita activity/Vol] l 020 Distric 11:48-0 [address] [place] [address] ([id number]) ALP [Catalytic 131 U/L High 35-130 U/L Hospita activity/Vol] l 020 Distric 15:49-0 t #1 of [address] [facility] ([id number]) ALT [Catalytic 23 U/L Invalid 6-45 U/L Hospita 12-29-2 activity/Vol] Interpreta l 020 tion Code Distric 11:48-0 t #1 of [address] [facility] ([id number]) ALT [Catalytic 23 U/L Invalid 6-45 U/L Hospita 12-29-2 activity/Vol] Interpreta l 020 tion Code Distric 15:49-0 t #1 of [address] [facility] ([id number]) Anion gap 15 mmol/L High 6-14 Hospita 12-29-2 [Moles/Vol] l 020 Distric 11:48-0 t #1 of [address] [facility] ([id number]) Anion gap 13 mmol/L Invalid 6-14 Hospita 12-29-2 [Moles/Vol] Interpreta l 020 tion Code Distric 15:49-0 [address] [place] [address] ([id number]) AST [Catalytic 32 U/L Invalid 2-40 U/L Hospita 12-29-2 activity/Vol] Interpreta l 020 tion Code Distric 11:48-0 t #[facility] of [address] [facility] ([id number]) AST [Catalytic 32 U/L Invalid 2-40 U/L Hospita 12-29-2 activity/Vol] Interpreta l 020 tion Code Distric 15:49-0 [address] [place] [address] ([id number]) Bacteria LM Ql Trace Abnormal Hospita (Urine sed) l 020 Distric 16:48-0 [address] [place] [address] ([id number]) Base excess standard -10.00 Low 1.80-4.20 Hospita -2 Calc (BldA) mmol/L l 020 [Moles/Vol] Distric 16:09-[address] [place] [address] ([id number]) Basophils (Bld) 0.0 10*3/uL Invalid 0.0-0.2 Hospita 12-29 [#/Vol] Interpreta K/uL l 020 tion Code Distric 11:48-0 [address] [place] [address] ([id number]) Basophils/100 WBC 1.30 % Invalid 0.00-2.50 Hospita 12-292 (Bld) Interpreta % l 020 tion Code Distric 11:48-[address] [place] [address] ([id number]) Bilirubin [Mass/Vol] 0.5 mg/dL Invalid 0.2-1.2 Hospita 02 -22-2 Interpreta mg/dL l 020 tion Code Distric 11:48-0 [address] [place] [address] ([id number]) Bilirubin [Mass/Vol] 0.4 mg/dL Invalid 0.2-1.2 Hospita 02 -22-2 Interpreta mg/dL l 020 tion Code Distric 15:49-[address] [place] [address] ([id number]) Bilirubin Confirm Ql N/A Abnormal Negative Hospita -22-2 (U) l 020 Distric 16:48-0 [address] [place] [address] () Bilirubin Ql (U) Negative Invalid Negative Hospita 12-29- 2 Interpreta l 020 tion Code Distric 16:48-0 [address] [place] [address] ([id number]) Calcium [Mass/Vol] 8.5 mg/dL Invalid 8.3-10.4 Hospita 02-2 2-2 Interpreta mg/dL l 020 tion Code Distric 11:48-[address] [place] [address] ([id number]) Calcium [Mass/Vol] 8.6 mg/dL Invalid 8.3-10.4 Hospita 02-2 2-2 Interpreta mg/dL l 020 tion Code Distric 15:49-[address] [place] [address] ([id number]) Chloride [Moles/Vol] 120 mmol/L High 95-114 Hospita 0 2-22-2 mmol/L l 020 Distric 11:48-0 [address] [place] [address] ([id number]) Chloride [Moles/Vol] 119 mmol/L High 95-114 Hospita 0 2-22-2 mmol/L l 020 Distric 15:49-0 [address] [place] [address] ([id number]) Clarity (U) Slightly Cloudy Abnormal Clear Hospita -22 -2 l 020 Distric 16:48-0 [address] [place] [address] ([id number]) CO2 (Bld) [Partial 26 Low 35-45 Hospita 02-2 2-2 pressure] mm/Hg l 020 Distric 16:09-[address] [place] [address] ([id number]) Color (U) Yellow Invalid Colorless- Hospita Interpreta Lt. Yellow l 020 tion Code Distric 16:48-0 t #[address] of [address] [facility] ([id number]) Creatinine 4.37 mg/dL Critically 0.50-1.50 Hospita 12-29-2 [Mass/Vol] high mg/dL l 020 Distric 11:48-0 t #1 of [address] [facility] ([id number]) Creatinine 4.36 mg/dL Critically 0.50-1.50 Hospita 22-2 [Mass/Vol] high mg/dL l 020 Distric 15:49-0 t #1 of [address] [facility] ([id number]) Eosinophils (Bld) 0.3 10*3/uL Invalid 0.0-0.7 Hospita -2 [#/Vol] Interpreta K/uL l 020 tion Code Distric 11:48-0 t #1 of [address] [facility] ([id number]) Eosinophils/100 WBC 9.4 % High 0.0-7.0 % Hospita -2 (Bld) l 020 Distric 11:48-[address] [place] [address] ([id number]) Epithelial 0-5/HPF Abnormal Hospita 12-29-2 cells.squamous l 020 LM.HPF (Urine sed) Distric 16:48-0 [#/Area] t [address] [place] [address] ([id number]) Erythrocyte 15.6 % High 11.6-14.8 Hospita 0222-2 distribution width % l 020 (RBC) [Ratio] Distric 11:48-0 [address] [place] [address] (39711) GFR/1.73 sq 13 mL/min/{1.73_m2} Low >59 Hospita 0 2-22-2 M.predicted MDRD mL/min/1.7 l 020 (S/P/Bld) [Vol 3m2 Distric 11:48-0 rate/Area] t [address] [place] [address] ([id number]) GFR/1.73 sq 13 mL/min/{1.73_m2} Low >59 Hospita 0 2-22-2 M.predicted MDRD mL/min/1.7 l 020 (S/P/Bld) [Vol 3m2 Distric 15:49-0 rate/Area] t [address] [place] [address] () Globulin (S) 2.9 g/dL Invalid 2.3-3.5 Hospita 02-22-2 [Mass/Vol] Interpreta g/dL l 020 tion Code Distric 11:48-[address] [place] [address] () Globulin (S) 3.1 g/dL Invalid 2.3-3.5 Hospita 02-22-2 [Mass/Vol] Interpreta g/dL l 020 tion Code Distric 15:49-0 [address] [place] [address] () Glucose [Mass/Vol] 126 mg/dL High 70-110 Hospita 02-2 2-2 mg/dL l 020 Distric 11:48-0 [address] [place] [address] () Glucose [Mass/Vol] 108 mg/dL Invalid 70-110 Hospita 02-2 2-2 Interpreta mg/dL l 020 tion Code Distric 15:49-0 [address] [place] [address] () Glucose Test strip Negative Invalid Negative Hospita 02-2 2-2 (U) [Mass/Vol] Interpreta l 020 tion Code Distric 16:48-[address] [place] [address] () HCO3 (BldMV) 15 Low 20-31 Hospita 02-22-2 [Moles/Vol] mmol/L l 020 Distric 16:09-[address] [place] [address] () HCO3 (P) [Moles/Vol] 16 Low 22-33 Hospita 02 -22-2 mEq/L l 020 Distric 11:48-0 [address] [place] [address] ([id number]) HCO3 (P) [Moles/Vol] 16 Low 22-33 Hospita 02 -22-2 mEq/L l 020 Distric 15:49-0 [address] [place] [address] () Hematocrit (Bld) 36.1 % Low 42.0-52.0 Hospita 02-22- 2 [Volume fraction] % l 020 Distric 11:48-[address] [place] [address] () Hemoglobin (Bld) 11.6 g/dL Low 14.0-17.0 Hospita 02-22- 2 [Mass/Vol] g/dL l 020 Distric 11:48-0 t #[address] of [address] [facility] ([id number]) Hemoglobin Ql (U) 2+ Abnormal Negative Hospita 12-29 l 020 Distric 16:48-0 t #1 of [address] [facility] ([id number]) Ketones (U) Negative Invalid Negative Hospita [Mass/Vol] Interpreta l 020 tion Code Distric 16:48-0 t #1 of [address] [facility] () Leukocyte esterase Negative [facility] Test strip Ql (U) Interpreta l 020 tion Code Distric 16:48-0 t #1 of [address] [facility] ([id number]) Lymphocytes (Bld) 0.76 10*3/uL Invalid 0.60-3.40 Hospita [#/Vol] Interpreta K/uL l 020 tion Code Distric 11:48-0 t #1 of [address] [facility] ([id number]) Lymphocytes/100 WBC 23.8 % Invalid 10.0-50.0 Hospita (Bld) Interpreta % l 020 tion Code Distric 11:48-0 t #1 of [address] [facility] ([id number]) MCH (RBC) [Entitic 31.5 pg High 27.0-31.2 Hospita 12-09 2-2 mass] pg l 020 Distric 11:48-0 [address] [place] [address] ([id number]) MCHC (RBC) 32.1 g/dL Invalid 32.0-36.0 Hospita [Mass/Vol] Interpreta g/dL l 020 tion Code Distric 11:48-0 [address] [place] [address] (58797) MCV (RBC) [Entitic 98.1 fL High 80.0-97.0 Hospita 02-2 2-2 vol] fL l 020 Distric 11:48-0 [address] [place] [address] ([id number]) Monocytes (Bld) 0.6 10*3/uL Invalid 0.0-0.9 Hospita 12-29 [#/Vol] Interpreta K/uL l 020 tion Code Distric 11:48-0 [address] [place] [address] ([id number]) Monocytes/100 WBC 19.1 % High 0.0-12.0 % Hospita - 2-2 (Bld) l 020 Distric 11:48-0 t #1 of [address] [facility] ([id number]) Mucus Ql (Urine sed) 1+ Abnormal Hospita 12-29 l 020 Distric 16:48-0 t #1 of [address] [facility] () Neutrophils (Bld) 1.48 10*3/uL Low 2.00-6.90 Hospita [#/Vol] K/uL l 020 Distric 11:48-0 t #1 of [address] [facility] () Neutrophils/100 WBC 46.4 % Invalid 37.0-80.0 Hospita (Bld) Interpreta % l 020 tion Code Distric 11:48-0 t #1 of [address] [facility] ([id number]) Nitrite Ql (U) Negative Invalid Negative Hospita Interpreta l 020 tion Code Distric 16:48-0 t #1 of [address] [facility] ([id number]) Osmolality Calc 319 High 280-295 Hospita [Osmolality] l 020 Distric 11:48-0 [address] [place] [address] ([id number]) Osmolality Calc 314 High 280-295 Hospita [Osmolality] l 020 Distric 15:49-0 t #[facility] of [address] [facility] ([id number]) Oxygen adjusted to 67 Low 80-95 [facility]'s actual mm/Hg l 020 temperature (BldA) Distric 16:09-0 [Partial pressure] t [address] [place] [address] () Oxygen saturation 93 RM AIR Low 95-100 % Hospita 12-29 adjusted to 0.5 l 020 (BldA) [Partial Distric 16:09-0 pressure] t [address] [place] [address] () pH (Bld) 7.37 [pH] Invalid 7.35-7.45 Hospita Interpreta l 020 tion Code Distric 16:09-0 [address] [place] [address] () pH (U) 5.0 [pH] Invalid 5-8.5 Hospita Interpreta l 020 tion Code Distric 16:48-0 [address] [place] [address] () Platelet mean volume 10.9 fL High 7.4-10.0 Hospita -2 (Bld) [Entitic vol] fL l 020 Distric 11:48-0 [address] [place] [address] () Platelets (Bld) 106 10*3/uL Low 150-400 Hospita 12-29 [#/Vol] K/uL l 020 Distric 11:48-0 t [address] [place] [address] () Potassium 5.6 mmol/L High 3.5-5.3 Hospita 12-29-2 [Moles/Vol] mmol/L l 020 Distric 11:48-0 [address] [place] [address] () Potassium 5.4 mmol/L High 3.5-5.3 Hospita 12-29-2 [Moles/Vol] mmol/L l 020 Distric 15:49-0 [address] [place] [address] () Protein (U) 2+ Abnormal Negative Hospita [Mass/Vol] l 020 Distric 16:48-0 [address] [place] [address] () Protein [Mass/Vol] 5.8 g/dL Low 6.0-8.3 Hospita 02-2 2-2 g/dL l 020 Distric 11:48-0 [address] [place] [address] ([id number]) Protein [Mass/Vol] 6.0 g/dL Invalid 6.0-8.3 Hospita 02-2 2-2 Interpreta g/dL l 020 tion Code Distric 15:49-0 [address] [place] [address] () RBC (Bld) [#/Vol] 3.68 10*6/uL Low 4.20-5.40 Hospita -2 M/uL l 020 Distric 11:48-0 [address] [place] [address] () RBC LM.HPF (Urine 10-20/HPF Abnormal Hospita sed) [#/Area] l 020 Distric 16:48-0 [address] [place] [address] () Sodium [Moles/Vol] 145 mmol/L Invalid 134-148 Hospita Interpreta mmol/L l 020 tion Code Distric 11:48-0 [address] [place] [address] ([id number]) Sodium [Moles/Vol] 143 mmol/L Invalid 134-148 Hospita Interpreta mmol/L l 020 tion Code Distric 15:49-0 [address] [place] [address] ([id number]) Specific gravity (U) 1.025 Invalid 1.000-1.03 Hospita 0 [Rel density] Interpreta 0 l 020 tion Code Distric 16:48-0 [address] [place] [address] ([id number]) Troponin I.cardiac 0.030 ng/mL Invalid 0.000-0.40 Hospita 0 [Mass/Vol] Interpreta 0 ng/mL l 020 tion Code Distric 15:49-0 [address] [place] [address] ([id number]) Urea nitrogen 69 mg/dL High 5-25 mg/dL Hospita [Mass/Vol] l 020 Distric 11:48-0 [address] [place] [address] ([id number]) Urea nitrogen 68 mg/dL High 5-25 mg/dL Hospita [Mass/Vol] l 020 Distric 15:49-0 [address] [place] [address] ([id number]) Urobilinogen Qn (U) 0.2 Invalid 0.2-1.0 Hospita Interpreta l 020 tion Code Distric 16:48-[address] [place] [address] ([id number]) WBC (Bld) [#/Vol] 3.19 10*3/uL Low 5.00-10.00 Hospita 0 K/uL l 020 Distric 11:48-0 [address] [place] [address] ([id number]) WBC LM.HPF (Urine 20-40/HPF Abnormal Hospita sed) [#/Area] l 020 Distric 16:48-0 [address] [place] [address] ([id number]) Yeast.budding Ql No Yeast present Invalid Hospita 12-09 (Urine sed) Interpreta l 020 tion Code Distric 16:48-0 [address] [place] [address] () laboratory on 2019-12-26 Albumin BCG dye 2.9 Low 3.6-5.1 Hospita 12-26-2 [Mass/Vol] g/dL l 020 Distric : t [address] [place] [address] () ALP [Catalytic 114 U/L Invalid 35-130 U/L Hospita activity/Vol] Interpreta l 020 tion Code Distric t [address] [place] [address] () ALT [Catalytic 22 U/L Invalid 6-45 U/L Hospita activity/Vol] Interpreta l 020 tion Code Distric t [address] [place] [address] () Anion gap 15 mmol/L High 6-14 Hospita [Moles/Vol] l 020 Distric : t [address] [place] [address] () AST [Catalytic 34 U/L Invalid 2-40 U/L Hospita activity/Vol] Interpreta l 020 tion Code Distric t [address] [place] [address] () Basophils (Bld) 0.0 10*3/uL Invalid 0.0-0.2 Hospita 12-26 [#/Vol] Interpreta K/uL l 020 tion Code Distric t [address] [place] [address] () Basophils/100 WBC 1.00 % Invalid 0.00-2.50 Hospita 12-26 (Bld) Interpreta % l 020 tion Code Distric : t [address] [place] [address] () Bilirubin [Mass/Vol] 0.5 mg/dL Invalid 0.2-1.2 Hospita Interpreta mg/dL l 020 tion Code Distric : t [address] [place] [address] () Calcium [Mass/Vol] 8.6 mg/dL Invalid 8.3-10.4 Hospita 02-1 9-2 Interpreta mg/dL l 020 tion Code Distric : t [address] [place] [address] () Chloride [Moles/Vol] 116 mmol/L High 95-114 Hospita 0 2-19-2 mmol/L l 020 Distric 02:02-0 t [address] [place] [address] ([id number]) Creatinine 4.20 mg/dL Critically 0.50-1.50 Hospita 19-2 [Mass/Vol] high mg/dL l 020 Distric 02:02-0 [address] [place] [address] ([id number]) Eosinophils (Bld) 0.4 10*3/uL Invalid 0.0-0.7 Hospita -2 [#/Vol] Interpreta K/uL l 020 tion Code Distric 02:02-0 [address] [place] [address] ([id number]) Eosinophils/100 WBC 9.1 % High 0.0-7.0 % Hospita -2 (Bld) l 020 Distric 02:02-0 [address] [place] [address] () Erythrocyte 14.9 % High 11.6-14.8 Hospita 12-26-2 distribution width % l 020 (RBC) [Ratio] Distric 02:02-0 [address] [place] [address] ([id number]) GFR/1.73 sq 14 mL/min/{1.73_m2} Low >59 Hospita 0 2-19-2 M.predicted MDRD mL/min/1.7 l 020 (S/P/Bld) [Vol 3m2 Distric 02:02-0 rate/Area] t [address] [place] [address] ([id number]) Globulin (S) 3.0 g/dL Invalid 2.3-3.5 Hospita 12-26-2 [Mass/Vol] Interpreta g/dL l 020 tion Code Distric 02:02-0 [address] [place] [address] ([id number]) Glucose [Mass/Vol] 92 mg/dL Invalid 70-110 Hospita 02-1 9-2 Interpreta mg/dL l 020 tion Code Distric 02:02-0 [address] [place] [address] ([id number]) HCO3 (P) [Moles/Vol] 16 Low 22-33 Hospita 02 -19-2 mEq/L l 020 Distric 02:02-0 [address] [place] [address] (56015) Hematocrit (Bld) 27.8 % Low 42.0-52.0 Hospita 12-26- 2 [Volume fraction] % l 020 Distric 02:02-0 t #1 of [address] [facility] ([id number]) Hemoglobin (Bld) 8.7 g/dL Low 14.0-17.0 Hospita 12-26- 2 [Mass/Vol] g/dL l 020 Distric 02:02-0 t #1 of [address] [facility] ([id number]) Lymphocytes (Bld) 0.87 10*3/uL Invalid 0.60-3.40 Hospita [#/Vol] Interpreta K/uL l 020 tion Code Distric 02:-0 t #1 of [address] [facility] ([id number]) Lymphocytes/100 WBC 22.0 % Invalid 10.0-50.0 Hospita (Bld) Interpreta % l 020 tion Code Distric 02:-0 t #1 of [address] [facility] ([id number]) MCH (RBC) [Entitic 31.2 pg Invalid 27.0-31.2 Hospita 12-08 9-2 mass] Interpreta pg l 020 tion Code Distric 02:-0 t #1 of [address] [facility] (72886) MCHC (RBC) 31.3 g/dL Low 32.0-36.0 Hospita 12-26-2 [Mass/Vol] g/dL l 020 Distric 02:-0 t #1 of [address] [facility] (50753) MCV (RBC) [Entitic 99.6 fL High 80.0-97.0 Hospita 02- 9-2 vol] fL l 020 Distric 02:-0 t #1 of [address] [facility] ([id number]) Monocytes (Bld) 0.8 10*3/uL Invalid 0.0-0.9 Hospita 12-26 [#/Vol] Interpreta K/uL l 020 tion Code Distric 02:-0 t #1 of [address] [facility] (85698) Monocytes/100 WBC 19.0 % High 0.0-12.0 % Hospita 12-08 9-2 (Bld) l 020 Distric 02:02-0 t #1 of [address] [facility] ([id number]) Neutrophils (Bld) 1.93 10*3/uL Low 2.00-6.90 Hospita [#/Vol] K/uL l 020 Distric 02:0 t #1 of [address] [facility] () Neutrophils/100 WBC 48.9 % Invalid 37.0-80.0 Hospita (Bld) Interpreta % l 020 tion Code Distric :0 t #1 of [address] [facility] ([id number]) Osmolality Calc 309 High 280-295 Hospita [Osmolality] l 020 Distric :0 t #1 of [address] [facility] () Platelet mean volume 10.7 fL High 7.4-10.0 Hospita (Bld) [Entitic vol] fL l 020 Distric :0 t #1 of [facility] () Platelets (Bld) 124 10*3/uL Low 150-400 Hospita 12-26 [#/Vol] K/uL l 020 Distric :-0 [address] [place] [address] () Potassium 5.1 mmol/L Invalid 3.5-5.3 Hospita [Moles/Vol] Interpreta mmol/L l 020 tion Code Distric :0 t #1 of [facility] () Protein [Mass/Vol] 5.9 g/dL Low 6.0-8.3 Hospita 02- 9-2 g/dL l 020 Distric :-[address] [place] [address] () RBC (Bld) [#/Vol] 2.79 10*6/uL Low 4.20-5.40 Hospita -2 M/uL l 020 Distric :0 [address] [place] [address] () Sodium [Moles/Vol] 142 mmol/L Invalid 134-148 Hospita Interpreta mmol/L l 020 tion Code Distric :0 [address] [place] [address] () Urea nitrogen 61 mg/dL High 5-25 mg/dL Hospita [Mass/Vol] l 020 Distric :-0 t #1 of [facility] () WBC (Bld) [#/Vol] 3.95 10*3/uL Low 5.00-10.00 Hospita 0 12-26-2 K/uL l 020 Distric 02:02-[address] [place] [address] ([id number]) not yet categorized on 2019-12-24 CULTURE SOURCE CC Invalid Hospita Interpreta l 020 tion Code Distric 08:07-[address] [place] [address] ([id number]) Electrocardiograms Complete Invalid Hospita recorded Interpreta l 020 tion Code Distric 09:02-[address] [place] [address] ([id number]) FINAL CULTURE <10,000 Gram Positive Mixed Jessica Invalid Hos simran RESULTS Probable Skin Contaminant Interpreta l 020 No Further Workup done tion Code Distric 08:07-[address] [place] [address] ([id number]) MEDIA PLATED Setup at 13:36 on 12/24/2019 Invalid Hospita Interpreta l 020 tion Code Distric 08:07-[address] [place] [address] ([id number]) PRELIM CULTURE <10,000 Gram Positive Mixed Jessica Invalid Ho spita RESULTS Probable Skin Contaminant Interpreta l 020 tion Code Distric 08:07-[address] [place] [address] ([id number]) Urine Volume Urine Volume Sufficient (10mL) Invalid Hospita Interpreta l 020 tion Code Distric 08:07-[address] [place] [address] ([id number]) Culture to follow Abnormal Hospita l 020 Distric 08:07-[address] [place] [address] ([id number]) laboratory on 2019-12-24 Albumin BCG dye 2.9 Low 3.6-5.1 Hospita [Mass/Vol] g/dL l 020 Distric 06:00-[address] [place] [address] ([id number]) ALP [Catalytic 109 U/L Invalid 35-130 U/L Hospita activity/Vol] Interpreta l 020 tion Code Distric 06:00-[address] [place] [address] ([id number]) ALT [Catalytic 21 U/L Invalid 6-45 U/L Hospita activity/Vol] Interpreta l 020 tion Code Distric 06:00-[address] [place] [address] ([id number]) Anion gap 12 mmol/L Invalid 6-14 Hospita [Moles/Vol] Interpreta l 020 tion Code Distric 06:00-0 t #[facility] of [address] [facility] ([id number]) AST [Catalytic 32 U/L Invalid 2-40 U/L Hospita activity/Vol] Interpreta l 020 tion Code Distric 06:00-[address] [place] [address] () Bacteria LM Ql Trace Abnormal Hospita (Urine sed) l 020 Distric 08:07-0 t #1 of [facility] () Basophils (Bld) 0.0 10*3/uL Invalid 0.0-0.2 Hospita 12-24 [#/Vol] Interpreta K/uL l 020 tion Code Distric 06:00-0 t #1 of [facility] () Basophils/100 WBC 1.00 % Invalid 0.00-2.50 Hospita 12-24 (Bld) Interpreta % l 020 tion Code Distric 06:00-0 t #1 of [facility] ([id number]) Bilirubin [Mass/Vol] 0.5 mg/dL Invalid 0.2-1.2 Hospita Interpreta mg/dL l 020 tion Code Distric 06:00-0 [address] [place] [address] () Bilirubin Confirm Ql N/A Abnormal Negative Hospita (U) l 020 Distric 08:07-0 t #1 of 500 [facility] () Bilirubin Ql (U) Negative Invalid Negative Hospita Interpreta l 020 tion Code Distric 08:07-0 t [address] [place] [address] () Calcium [Mass/Vol] 8.4 mg/dL Invalid 8.3-10.4 Hospita - 7-2 Interpreta mg/dL l 020 tion Code Distric 06:00-0 [address] [place] [address] ([id number]) Chloride [Moles/Vol] 118 mmol/L High 95-114 Hospita 0 2-17-2 mmol/L l 020 Distric 06:00-0 [address] [place] [address] ([id number]) Clarity (U) Cloudy Abnormal Clear Hospita l 020 Distric 08:07-0 t #1 of [facility] () Color (U) Yellow Invalid [facility]less- [facility] Yellow l 020 tion Code Distric 08:070 t #1 of [facility] () Creatinine 4.09 mg/dL Critically 0.50-1.50 Hospita [Mass/Vol] high mg/dL l 020 Distric 06:00-0 [address] [place] [address] () Eosinophils (Bld) 0.4 10*3/uL Invalid 0.0-0.7 Hospita [#/Vol] Interpreta K/uL l 020 tion Code Distric 06:000 [address] [place] [address] () Eosinophils/100 WBC 10.0 % High 0.0-7.0 % Hospita (Bld) l 020 Distric 06:000 [address] [place] [address] () Epithelial 0-5/HPF Abnormal [facility] cells.squamous l 020 LM.HPF (Urine sed) Distric 08:070 [#/Area] t [address] [place] [address] () Erythrocyte 14.8 % Invalid 11.6-14.8 [facility] width Interpreta % l 020 (RBC) [Ratio] tion Code Distric 06:00-0 t #1 of [facility] () GFR/1.73 sq 14 mL/min/{1.73_m2} Low >59 Hospita 0 2 M.predicted MDRD mL/min/1.7 l 020 (S/P/Bld) [Vol 3m2 Distric 06:00-0 rate/Area] t [address] [place] [address] () Globulin (S) 2.9 g/dL Invalid 2.3-3.5 Hospita [Mass/Vol] Interpreta g/dL l 020 tion Code Distric 06:00-0 [address] [place] [address] () Glucose [Mass/Vol] 124 mg/dL High 70-110 Hospita 02 7-2 mg/dL l 020 Distric 06:00-0 t #1 of [facility] () Glucose Test strip Negative Invalid Negative Hospita 12-08 (U) [Mass/Vol] Interpreta l 020 tion Code Distric 08:070 [address] [place] [address] () HCO3 (P) [Moles/Vol] 18 Low 22-33 Hospita mEq/L l 020 Distric 06:000 [address] [place] [address] () Hematocrit (Bld) 29.0 % Low 42.0-52.0 Hospita [Volume fraction] % l 020 Distric 06:00-[address] [place] [address] () Hemoglobin (Bld) 9.1 g/dL Low 14.0-17.0 Hospita [Mass/Vol] g/dL l 020 Distric 06:00-0 [address] [place] [address] () Hemoglobin Ql (U) 1+ Abnormal Negative Hospita 12-24 l 020 Distric 08:070 [address] [place] [address] () Ketones (U) Negative Invalid Negative Hospita [Mass/Vol] Interpreta l 020 tion Code Distric 08:070 [address] [place] [address] () Leukocyte esterase 2+ Abnormal Negative Hospita 12-08 Test strip Ql (U) l 020 Distric 08:07-0 t [address] [place] [address] () Lymphocytes (Bld) 1.11 10*3/uL Invalid 0.60-3.40 Hospita [#/Vol] Interpreta K/uL l 020 tion Code Distric 06:00-0 t [address] [place] [address] () Lymphocytes/100 WBC 26.6 % Invalid 10.0-50.0 Hospita (Bld) Interpreta % l 020 tion Code Distric 06:00-0 t [address] [place] [address] () MCH (RBC) [Entitic 31.2 pg Invalid 27.0-31.2 Hospita 02-1 7-2 mass] Interpreta pg l 020 tion Code Distric 06:00-0 t #1 of 500 [facility] ([id number]) MCHC (RBC) 31.4 g/dL Low 32.0-36.0 Hospita [Mass/Vol] g/dL l 020 Distric 06:00-0 t [address] [place] [address] ([id number]) MCV (RBC) [Entitic 99.3 fL High 80.0-97.0 Hospita 02- 7-2 vol] fL l 020 Distric 06:00-0 t #1 of 500 [facility] () Monocytes (Bld) 0.9 10*3/uL Invalid 0.0-0.9 Hospita 12-24 [#/Vol] Interpreta K/uL l 020 tion Code Distric 06:000 t [address] [place] [address] () Monocytes/100 WBC 21.3 % High 0.0-12.0 % Hospita 12-08 (Bld) l 020 Distric 06:000 t #1 of 500 [facility] () Neutrophils (Bld) 1.72 10*3/uL Low 2.00-6.90 Hospita [#/Vol] K/uL l 020 Distric 06:00-0 t [address] [place] [address] () Neutrophils/100 WBC 41.1 % Invalid 37.0-80.0 Hospita (Bld) Interpreta % l 020 tion Code Distric 06:000 t #1 of 500 [facility] () Nitrite Ql (U) Negative Invalid Negative Hospita Interpreta l 020 tion Code Distric 08:070 t [address] [place] [address] ([id number]) Osmolality Calc 311 High 280-295 Hospita [Osmolality] l 020 Distric 06:00-0 t [address] [place] [address] ([id number]) pH (U) 5.0 [pH] Invalid 5-8.5 Hospita Interpreta l 020 tion Code Distric 08:07-0 t [address] [place] [address] () Platelet mean volume 10.2 fL High 7.4-10.0 Hospita (Bld) [Entitic vol] fL l 020 Distric 06:00-0 t [address] [place] [address] () Platelets (Bld) 128 10*3/uL Low 150-400 Hospita 12-24 [#/Vol] K/uL l 020 Distric 06:00-0 t [address] [place] [address] () Potassium 4.9 mmol/L Invalid 3.5-5.3 Hospita [Moles/Vol] Interpreta mmol/L l 020 tion Code Distric 06:000 t [address] [place] [address] () Protein (U) 2+ Abnormal Negative Hospita [Mass/Vol] l 020 Distric 08:070 t [address] [place] [address] () Protein [Mass/Vol] 5.8 g/dL Low 6.0-8.3 Hospita 12-08 7-2 g/dL l 020 Distric :000 t [address] [place] [address] () RBC (Bld) [#/Vol] 2.92 10*6/uL Low 4.20-5.40 Hospita M/uL l 020 Distric :00-0 t [address] [place] [address] () RBC LM.HPF (Urine 0-2/HPF Abnormal Hospita sed) [#/Area] l 020 Distric 08:07-0 t [address] [place] [address] () Sodium [Moles/Vol] 143 mmol/L Invalid 134-148 Hospita Interpreta mmol/L l 020 tion Code Distric :000 t [address] [place] [address] () Specific gravity (U) 1.020 Invalid 1.000-1.03 Hospita 0 [Rel density] Interpreta 0 l 020 tion Code Distric 08:070 t [address] [place] [address] () Urea nitrogen 57 mg/dL High 5-25 mg/dL Hospita [Mass/Vol] l 020 Distric 06:00-0 t [address] [place] [address] () Urobilinogen Qn (U) [id number] {Janice'U}/dL Abnormal 0.2-1.0 Hospita l 020 Distric 08:07-0 t #1 of 500 [facility] ([id number]) WBC (Bld) [#/Vol] 4.18 10*3/uL Low 5.00-10.00 Hospita 0 17-2 K/uL l 020 Distric 06:00-0 t #1 of 500 [facility] ([id number]) WBC LM.HPF (Urine TNTC Abnormal Hospita sed) [#/Area] l 020 Distric 08:07-0 t #1 of 500 [facility] ([id number]) venous blood hemoglobin measurement (mass/volume) on 2018-09-15 Hemoglobin mass conc 8.7 g/dL Low 13.3-17.7 Via (Bld) Radha [facility] [place] ([id number]) serum or plasma urea nitrogen/creatinine mass ratio on 2018-09-15 Urea 14 mg/mg Invalid Via nitrogen/Creatinine Interpreta Radha mass ratio tion Code [facility]ospita [facility] [place] ([id number]) serum or plasma urea nitrogen measurement (mass/volume) on 2018-09-15 Urea nitrogen mass 54 mg/dL High 7-18 Via conc [facility] [place] ([id number]) serum or plasma sodium measurement (moles/volume) on 2018-09-15 Sodium molar conc 136 mmol/L Invalid 135-145 Via Interpreta Radha [facility]ion [facility] [place] ([id number]) serum or plasma potassium measurement (moles/volume) on 2018-09-15 Potassium molar conc 4.1 mmol/L Invalid 3.6-5.0 Via Interpreta Radha tion Code [facility]ospita [facility] [place] ([id number]) serum or plasma glucose measurement (mass/volume) on 2018-09-15 Glucose mass conc 132 mg/dL High 70-105 Via Radha [facility] [place] ([id number]) serum or plasma creatinine measurement with calculation of estimated glomerular filtration rate on 2018-09-15 GFR/1.73 sq M 16 mL/min/{1.73_m2} Invalid Via predicted among Interpreta Radha non-blacks MDRD vol tion Code Hospita rate/area (S/P/Bld) [place] ([id number]) serum or plasma creatinine measurement (mass/volume) on 2018-09-15 Creatinine mass conc 3.73 mg/dL High 0.60-1.30 [facility] ([id number]) serum or plasma chloride measurement (moles/volume) on 2018-09-15 Chloride molar conc 114 mmol/L High 98-107 [facility] ([id number]) serum or plasma calcium measurement (mass/volume) on 2018-09-15 Calcium mass conc 8.7 mg/dL Invalid 8.5-10.1 Via Interpreta Radha tion Code [facility] ([id number]) serum or plasma anion gap determination (moles/volume) on 2018-09-15 Anion gap 3 molar 7 mmol/L Invalid 5-14 Via conc Interpreta Radha tion Code [facility] ([id number]) magnesium on 2018-09-15 Magnesium mass conc 2.0 mg/dL Invalid 1.8-2.4 Via Interpreta Radha tion Code [facility] ([id number]) carbon dioxide on 2018-09-15 CO2 molar conc 15 mmol/L Low 21-32 [facility] ([id number]) blood leukocytes automated count (number/volume) on 2018-09-15 WBC Auto #/vol (Bld) 8.0 10*3/uL Invalid 4.3-11.0 Via Interpreta Radha tion Code [facility] ([id number]) blood hematocrit (volume fraction) on 2018-09-15 Hematocrit Auto 28 % Low 40-54 Via Volume Fraction Radha (Bld) [facility] ([id number]) blood erythrocytes automated count (number/volume) on 2018-09-15 RBC Auto #/vol (Bld) 2.80 10*6/uL Low 4.35-5.85 Via Radha [facility] ([id number]) automated erythrocyte mean corpuscular volume on 2018-09-15 MCV Auto Entitic 98 fL Invalid 80-99 Via volume (RBC) Interpreta Radha tion Code [facility] ([id number]) automated erythrocyte mean corpuscular hemoglobin concentration measurement (mass/volume) on 2018-09-15 MCHC Auto mass conc 32 g/dL Invalid 32-36 Via (RBC) Interpreta Radha tion Code [facility] rg ([id number]) automated erythrocyte mean corpuscular hemoglobin (mass per erythrocyte) on 2018-09-15 MCH Auto Entitic 31 pg Invalid 25-34 Via mass (RBC) Interpreta Radha tion Code [facility] ([id number]) automated erythrocyte distribution width ratio on 2018-09-15 Erythrocyte 15.2 % High 10.0-14.5 Via distribution width Radha Auto Ratio (RBC) [facility] ([id number]) automated blood platelet mean volume measurement on 2018-09-15 Platelet mean volume 10.0 fL Invalid 7.4-10.4 Via Auto Entitic volume Interpreta Radha (Bld) tion Code [facility] ([id number]) automated blood platelet count (count/volume) on 2018-09-15 Platelets Auto #/vol 89 10*3/uL Low 130-400 Via (Bld) Radha [facility] ([id number]) uibc (unsaturated iron binding capacity) on 2018-09-14 Iron binding 256 Invalid 55-450 Via capacity.unsaturated Interpreta Radha mass conc tion Code [facility] ([id number]) total iron binding capacity and transferrin saturation measurement on 2018-09-14 Iron and Iron 4 Low 15-50 Via binding capacity Radha panel - Serum or [facility] Plasma [facility] ([id number]) serum or plasma total bilirubin measurement (mass/volume) on 2018-09-14 Bilirubin mass conc 0.4 mg/dL Invalid 0.1-1.0 Via Interpreta Radha tion Code [facility] ([id number]) serum or plasma protein measurement (mass/volume) on 2018-09-14 Protein mass conc 5.3 g/dL Low 6.4-8.2 [facility] ([id number]) serum or plasma iron measurement (mass/volume) on 2018-09-14 Iron mass conc 12 ug/dL Low 40-180 Via Radha [facility] ([id number]) serum or plasma ferritin measurement (mass/volume) on 2018-09-14 Ferritin mass conc 117.0 ng/mL Invalid 32.0-356.0 Via Interpreta Radha tion Code [facility] ([id number]) serum or plasma aspartate aminotransferase measurement (enzymatic activity/volume) on 2018-09-14 AST enzyme act/vol 42 U/L High 5-34 [facility] ([id number]) serum or plasma alkaline phosphatase measurement (enzymatic activity/volume) on 2018-09-14 ALP enzyme act/vol 36 U/L Low 40-136 [facility] ([id number]) serum or plasma albumin measurement (mass/volume) on 2018-09-14 Albumin mass conc 3.0 g/dL Low 3.2-4.5 [facility] ([id number]) serum or plasma alanine aminotransferase measurement (enzymatic activity/volume) on 2018-09-14 ALT enzyme act/vol 25 U/L Invalid 0-55 Via Interpreta Radha tion Code [facility] ([id number]) iron binding capacity [mass/volume] in serum or plasma on 2018-09-14 Iron binding 268 Low 280-380 Via capacity mass conc [facility] ([id number]) calcium measurement corrected for albumin on 2018-09-14 Calcium mass conc 9.3 mg/dL Invalid 8.5-10.1 Via Interpreta Radha tion Code [facility] ([id number]) blood neutrophils automated count (number/volume) on 2018-09-14 Neutrophils Auto 10.8 10*3/uL High 1.8-7.8 Via #/vol (Bld) [facility] ([id number]) blood monocytes/100 leukocytes on 2018-09-14 Monocytes/100 WBC 13 % High 0-12 Via Auto (Bld) [facility] ([id number]) blood monocytes automated count (number/volume) on 2018-09-14 Monocytes Auto #/vol 1.8 10*3/uL High 0.0-1.0 Via (Bld) [facility] ([id number]) blood lymphocytes automated count (number/volume) on 2018-09-14 Lymphocytes Auto 1.0 10*3/uL Invalid 1.0-4.0 Via #/vol (Bld) Interpreta Radha tion Code [facility] ([id number]) automated eosinophil count on 2018-09-14 Eosinophils Auto 0.1 10*3/uL Invalid 0.0-0.3 Via #/vol (Bld) Interpreta Radha tion Code [facility] ([id number]) automated blood neutrophils/100 leukocytes on 2018-09-14 Neutrophils/100 WBC 79 % High 42-75 Via Auto (Bld) Radha [facility] ([id number]) automated blood lymphocytes/100 leukocytes on 2018-09-14 Lymphocytes/100 WBC 7 % Low 12-44 Via Auto (Bld) Radha [facility] ([id number]) automated blood eosinophils/100 leukocytes on 2018-09-14 Eosinophils/100 WBC 0 % Invalid 0-10 Via Auto (Bld) Interpreta Radha tion Code [facility] ([id number]) automated blood basophils/100 leukocytes on 2018-09-14 Basophils/100 WBC 0 % Invalid 0-10 Via Auto (Bld) Interpreta Radha tion Code [facility] tracey [place] ([id number]) automated blood basophil count (count/volume) on 2018-09-14 Basophils Auto #/vol 0.0 10*3/uL Invalid 0.0-0.1 Via (Bld) Interpreta Radha tion Code [facility] ([id number]) urine urobilinogen measurement by automated test strip (mass/volume) on 2018-09-13 Urobilinogen Test NORMAL Invalid NORMAL Via strip Qn (U) Interpreta Radha tion Code [facility] ([id number]) urine total bilirubin detection by test strip on 2018-09-13 Bilirubin Ql (U) Negative Invalid NEGATIVE Via Interpreta Radha tion Code [facility] tracey [place] ([id number]) urine protein assay by test strip, semi-quantitative on 2018-09-13 Protein Test strip 3+ Invalid NEGATIVE Via Ql (U) Interpreta Radha tion Code [facility] tracey [facility] ([id number]) urine ph measurement by test strip on 2018-09-13 pH Test strip (U) 5 [pH] Invalid 5-9 Via Interpreta Radha tion Code [facility] tracey [facility] ([id number]) urine nitrite detection by test strip on 2018-09-13 Nitrite Test strip Negative Invalid NEGATIVE Via Ql (U) Interpreta Radha tion Code [facility] ([id number]) urine leukocyte esterase detection by dipstick on 2018-09-13 Leukocyte esterase Negative Invalid NEGATIVE Via Test strip Ql (U) Interpreta Radha tion Code [facility] [place] ([id number]) urine ketones detection by automated test strip on 2018-09-13 Ketones Automated Negative Invalid NEGATIVE Via test strip Ql (U) Interpreta Radha tion Code [facility] ([id number]) urine glucose detection by automated test strip on 2018-09-13 Glucose Automated Negative Invalid NEGATIVE Via test strip Ql (U) Interpreta Radha tion Code [facility] [place] ([id number]) urine color determination on 2018-09-13 Color Nom (U) YELLOW Invalid Via Interpreta Radha tion Code [facility] ([id number]) urine clarity determination on 2018-09-13 Clarity Nom (U) SLIGHTLY CLOUDY Invalid Via Interpreta Radha [facility] ([id number][facility] squamous epithelial cells detection in urine sediment by light microscopy on 2018-09-13 Epithelial Invalid Via cells.squamous LM Ql Interpreta Radha (Urine sed) tion Code [facility] ([id number]) specific gravity of urine by test strip on 2018-09-13 Specific gravity 1.020 Invalid 1.016-1.02 Via Relative Density (U) Interpreta 2 Radha tion Code [facility] ([id number]) serum or plasma troponin i.cardiac measurement (mass/volume) on 2018-09-13 Troponin I.cardiac Invalid <0.30 Via mass conc Interpreta Radha tion Code [facility] ([id number]) serum or plasma thyrotropin measurement by detection limit <=0.05 miu/l (units/volume) on 2018-09-13 Thyrotropin Qn 2.33 m[IU]/L Invalid 0.35-4.94 Via Interpreta Radha tion Code [facility] ([id number]) prothrombin time (pt) in platelet poor plasma by coagulation assay on 2018-09-13 Prothrombin time 14.3 s Invalid 12.2-14.7 Via (PT) Coag time (PPP) Interpreta Radha tion Code [facility] [place] ([id number]) mucus detection in urine sediment by light microscopy on 2018-09-13 Mucus LM Ql (Urine Negative Invalid Via sed) Interpreta Radha tion Code [facility] ([id number]) manual blood segmented neutrophils/100 leukocytes on 2018-09-13 Segmented 79 % Invalid Via neutrophils/100 WBC Interpreta Radha Manual cnt (Bld) tion Code [facility] ([id number]) manual blood lymphocytes/100 leukocytes on 2018-09-13 Lymphocytes/100 WBC 3 % Invalid Via Auto (Bld) Interpreta Radha tion Code [facility] g[facility] ([id number]) inr in platelet poor plasma or blood by coagulation assay on 2018-09-13 INR Coag RelTime 1.1 Invalid 0.8-1.4 Via (Platelet poor Interpreta Radha plasma or blood) tion Code [facility] ([id number]) erythrocytes detection in urine sediment by light microscopy on 2018-09-13 RBC LM Ql (Urine Negative Invalid NEGATIVE Via sed) Interpreta Radha tion Code [facility] ([id number]) crystals detection in urine sediment by light microscopy on 2018-09-13 Crystals LM Ql PRESENT Invalid Via (Urine sed) Interpreta Radha tion Code [facility] rg ([id number]) complete urinalysis with reflex to culture on 2018-09-13 Urinalysis complete NO Invalid Via W Reflex Culture Interpreta Radha panel - Urine tion Code [facility] g[facility] ([id number]) casts detection in urine sediment by light microscopy on 2018-09-13 Casts LM Ql (Urine NONE Invalid Via sed) Interpreta Radha tion Code [facility] rg ([id number]) bnp level on 2018-09-13 Natriuretic peptide 592.8 pg/mL High <100.0 Via B mass conc (Bld) Radha [facility] rg ([id number]) blood monocytes/100 leukocytes on 2018-09-13 Monocytes/100 WBC 9 % Invalid Via Auto (Bld) Interpreta Radha tion Code [facility] rg ([id number]) blood lactic acid measurement (moles/volume) on 2018-09-13 Lactate molar conc 1.54 mmol/L Invalid 0.50-2.00 Via Interpreta Radha tion Code [facility] rg ([id number]) blood erythrocyte morphology finding identification on 2018-09-13 RBC morphology NORMAL Invalid Via finding Nom (Bld) Interpreta Radha tion Code [facility] g[facility] ([id number]) blood band neutrophils/100 leukocytes on 2018-09-13 Band form 9 % Invalid Via neutrophils/100 WBC Interpreta Radha Manual cnt (Bld) tion Code [facility] ([id number]) bacterial urine culture on 2018-09-13 Bacteria identified NO GROWTH Invalid Via Cx Nom (U) Interpreta Radha tion Code [facility] rg ([id number]) bacterial blood culture on 2018-09-13 Bacteria identified Organism: Streptococcus pneumoniae Invali d Via Cx Nom (Bld) Interpreta Radha tion Code [facility] ([id number]) Bacteria identified No growth Invalid Via Cx Nom (Bld) Interpreta Radha tion Code [facility] rg ([id number]) Bacteria identified Organism: SEE REPORT Invalid Via Cx Nom (Bld) Interpreta Radha tion Code [facility] [place] ([id number]) bacteria detection in urine sediment by light microscopy on 2018-09-13 Bacteria LM Ql Negative Invalid Via (Urine sed) Interpreta Radha tion Code [facility] ([id number]) automated urine sediment leukocyte count by microscopy (number/high power field) on 2018-09-13 WBC LM.HPF #/area NONE Invalid Via (Urine sed) Interpreta Radha tion Code [facility] ([id number]) automated urine sediment erythrocyte count by microscopy (number/high power field) on 2018-09-13 RBC LM.HPF #/area NONE Invalid Via (Urine sed) Interpreta Radha tion Code [facility] ([id number]) amorphous sediment detection in urine sediment by light microscopy on 2018-09-13 Amorphous sediment MOD LEESA URATES Invalid Via LM Ql (Urine sed) Interpreta Radha tion Code [facility] ([id number]) activated partial thromboplastin time (aptt) in platelet poor plasma bycoagulation assay on 2018-09-13 aPTT Coag time (Bld) 30 s Invalid 24-35 Via Interpreta Radha tion Code [facility] rg ([id number]) comp metabolic on 2017-09-20 Anion gap 11 mmol/L Normal 6-14 [place] 09-20-2 [Moles/Vol] Nalini schreiber MD, [facility]-0 [facility] 500 ([id number]) Work Phone: BILI T 0.5 mg/dL Normal 0.1mg/dL-1 [place] 09-20-2 .4mg/dL Nalini schreiber MD, 13:00-0 [facility] ([id number]) Work Phone: Globulin (S) 2.6 g/dL Normal 1.5g/dL-4. Zac 2 [Mass/Vol] 5g/dL [facility] 017 candie MOHR, 13:00-0 [facility] 500 ([id number]) Work Phone: TPRO 5.9 g/dL Normal 6.0g/dL-8. Zac 09-20-2 0g/dL Jose Jsto Karl schreiber MD, 13:00-0 [facility] ([id number]) Work Phone: cbc with differential on 2017-09-20 Basophils/100 WBC 0.9 % Normal 0.0%-2.5% Zac09-20 (Bld) Jose Jsto Karl schreiber MD, 13:00-0 [facility] ([id number]) Work Phone: Erythrocyte 14.9 % Normal 11.6%-14.8 Zac 09-20-2 distribution width % [facility] 017 (RBC) [Ratio] n , 13:00-0 [facility] ([id number]) Work Phone: Hematocrit (Bld) 32.8 % Normal 42.0%-52.0 Zac 09-202 [Volume fraction] % [facility] 017 candie MOHR, 13:00-0 [facility] 500 ([id number]) Work Phone: Lymphocytes (Bld) 1.11 10*3/uL Normal 0.60K/ul-3 [place] [#/Vol] .40K/ul [facility] 017 candie MOHR, 13:00-0 [facility] 500 ([id number]) Work Phone: [phone] Lymphocytes/100 WBC 17.3 % Normal 10.0%-50.0 Zac -2 (Bld) % [facility] 017 candie MOHR, 13:00-0 [facility] 500 ([id number]) Work Phone: [phone] MCH (RBC) [Entitic 31.7 pg Normal 27.0pg-31. Zac - mass] 0pg Anno Karl schreiber MD, 13:00-0 [facility] ([id number]) Work Phone: MCHC 32.3 pg Normal 32.0pg-36. Zac 09-20- 0pg Nalini schreiber MD, 13:00-0 [facility] ([id number]) Work Phone: MCV (RBC) [Entitic 98.2 fL Normal 80.0fl-97. Zac -2 vol] 0fl Nalini schreiber MD, 13:00-0 [facility] ([id number]) Work Phone: Neutrophils/100 WBC 61.8 % Normal 37.0%-80.0 Zac -2 (Bld) % Nalini schreiber MD, 13:00-0 [facility] ([id number]) Work Phone: Platelets (Bld) 235 10*3/uL Normal 150K/ul-40 Zac 11- 4-2 [#/Vol] 0K/ul Nalini schreiber MD, 13:00-0 [facility] ([id number]) Work Phone: RBC (Bld) [#/Vol] 3.34 10*6/uL Normal 4.20M/ul-5 Zac 1 11-20-2 .40M/ul Nalini schreiber MD, 13:00-0 [facility] ([id number]) Work Phone: WBC (Bld) [#/Vol] 6.40 10*3/uL Normal 5.00K/ul-1 Zac 1 11-20-2 0.00K/ul Nalini schreiber MD, 13:00-0 [facility] ([id number]) Work Phone: comp metabolic on 2017-05-17 BILI T 0.4 mg/dL Normal 0.1mg/dL-1 Zac 05-17-2 .4mg/dL Nalini schreiber MD, 02:00-0 [facility] 400 ([id number]) Work Phone: TPRO 5.4 g/dL Normal 6.0g/dL-8. Zac 05-17-2 0g/dL Nalini schreiber MD, 02:00-0 [facility] ([id number]) Work Phone: cbc with differential on 2017-05-17 MCHC 31.9 pg Normal 32.0pg-36. Zac 05-17-2 0pg Nalini schreiber MD, 02:00-0 [facility] ([id number]) Work Phone: other on 2017-02-09 Albumin BCG dye 2.5 Low 3.6-5.1 Not 04-05-2 [Mass/Vol] g/dL Avail[facility] 017 le 12:32-0 ([id number]) 400 Erythrocyte 16.2 % High 11.6-14.8 Not 05-2 distribution width % Avail[facility] 017 (RBC) [Ratio] le 12:32-0 (46623) 400 GFR/1.73 sq 22 mL/min/{1.73_m2} Low >59 Not 0 05-2 M.predicted MDRD mL/min/1.7 [facility] 017 (S/P/Bld) [Vol 3m2 le 12:32-0 rate/Area] ([id number]) 400 Globulin (S) 2.8 g/dL Invalid 2.3-3.5 Not 04-05-2 [Mass/Vol] Interpreta g/dL [facility] 017 tion Code le 12:32-0 ([id number]) 400 HCO3 (P) [Moles/Vol] 21 Low 22-33 Not 04 -05-2 mEq/L Avail[facility] 017 le 12:32-0 (48393) 400 MCHC (RBC) 31.2 g/dL Low 32.0-36.0 Not 04-05-2 [Mass/Vol] g/dL Availab 017 le 12:32-0 ([id number]) 400 Osmolality Calc 302 High 280-295 Not 05-2 [Osmolality] [facility]ail[facility] 017 le 12:32-0 ([id number]) 400 Platelet mean volume 9.7 fL Invalid 7.4-10.0 Not 05-2 (Bld) [Entitic vol] Interpreta fL [facility] 017 tion Code le 12:32-0 (54336) 400 metabolic panel on 2017-02-09 ALP [Catalytic 96 U/L Invalid 35-130 U/L Not 0405-2 activity/Vol] Interpreta Availab 017 tion Code le 12:32-0 ([id number]) 400 ALT [Catalytic 22 U/L Invalid 6-45 U/L Not 04-05-2 activity/Vol] Interpreta Availab 017 tion Code le 12:32-0 ([id number]) 400 Anion gap 14 mmol/L Invalid 6-14 Not 04-05-2 [Moles/Vol] Interpreta Availab 017 tion Code le 12:32-0 ([id number]) 400 AST [Catalytic 34 U/L Invalid 2-40 U/L Not 04-05-2 activity/Vol] Interpreta Availab 017 tion Code le 12:32-0 (34227) 400 Bilirubin [Mass/Vol] 0.4 mg/dL Invalid 0.2-1.2 Not 04 -05-2 Interpreta mg/dL Avail[facility] 017 tion Code le 12:32-0 (62890) 400 Calcium [Mass/Vol] 8.3 mg/dL Invalid 8.3-10.4 Not 04-0 5-2 Interpreta mg/dL Avail[facility] 017 tion Code le 12:32-0 ([id number]) 400 Chloride [Moles/Vol] 113 mmol/L Invalid 95-114 Not 0 4-05-2 Interpreta mmol/L Availab 017 tion Code le 12:32-0 ([id number]) 400 Creatinine 2.82 mg/dL High 0.50-1.50 Not 04-05-2 [Mass/Vol] mg/dL Availab 017 le 12:32-0 ([id number]) 400 Glucose [Mass/Vol] 117 mg/dL High 70-110 Not 04-0 5-2 mg/dL Availab 017 le 12:32-0 (41073) 400 Potassium 4.5 mmol/L Invalid 3.5-5.3 Not 04-05-2 [Moles/Vol] Interpreta mmol/L Avail[facility] 017 tion Code le 12:32-0 (19089) 400 Protein [Mass/Vol] 5.3 g/dL Low 6.0-8.3 Not 04-0 5-2 g/dL Availab 017 le 12:32-0 (85306) 400 Sodium [Moles/Vol] 143 mmol/L Invalid 134-148 Not 04- 05-2 Interpreta mmol/L Avail[facility] 017 tion Code le 12:32-0 (33794) 400 Urea nitrogen 29 mg/dL High 5-25 mg/dL Not [Mass/Vol] Availab 017 le 12:32-0 (24379) 400 hematology on 2017-02-09 Basophils (Bld) 0.0 10*3/uL Invalid 0.0-0.2 Not 02-09 [#/Vol] Interpreta K/uL [facility]ail[facility] 017 tion Code le 12:32-0 ([id number]) 400 Basophils/100 WBC 0.40 % Invalid 0.00-2.50 Not 02-09 (Bld) Interpreta % Avail[facility] 017 tion Code le 12:32-0 (50687) 400 Eosinophils (Bld) 0.2 10*3/uL Invalid 0.0-0.7 Not 03-08 [#/Vol] Interpreta K/uL Avail[facility] 017 tion Code le 12:32-0 (98194) 400 Eosinophils/100 WBC 3.4 % Invalid 0.0-7.0 % Not 03-08 (Bld) Interpreta Availab 017 tion Code le 12:32-0 (21733) 400 Hematocrit (Bld) 34.9 % Low 42.0-52.0 Not [Volume fraction] % Availab 017 le 12:32-0 (77545) 400 Hemoglobin (Bld) 10.9 g/dL Low 14.0-17.0 Not [Mass/Vol] g/dL Avail[facility] 017 le 12:32-0 (36896) 400 Lymphocytes (Bld) 1.00 10*3/uL Invalid 0.60-3.40 Not [#/Vol] Interpreta K/uL Avail[facility] 017 tion Code le 12:32-0 (44755) 400 Lymphocytes/100 WBC 14.9 % Invalid 10.0-50.0 Not 2 (Bld) Interpreta % Availab 017 tion Code le 12:32-0 (13923) 400 MCH (RBC) [Entitic 29.9 pg Invalid 27.0-31.2 Not 04-0 5-2 mass] Interpreta pg [facility]ail[facility] 017 tion Code le 12:32-0 (35176) 400 MCV (RBC) [Entitic 95.9 fL Invalid 80.0-97.0 Not 04-0 5-2 vol] Interpreta fL Avail[facility] 017 tion Code le 12:32-0 (19948) 400 Monocytes (Bld) 1.0 10*3/uL High 0.0-0.9 Not 04-05 -2 [#/Vol] K/uL Availab 017 le 12:32-0 (09782) 400 Monocytes/100 WBC 15.5 % High 0.0-12.0 % Not 04-0 5-2 (Bld) Availab 017 le 12:32-0 (07081) 400 Neutrophils (Bld) 4.41 10*3/uL Invalid 2.00-6.90 Not 04 05-2 [#/Vol] Interpreta K/uL Availab 017 tion Code le 12:32-0 ([id number]) 400 Neutrophils/100 WBC 65.8 % Invalid 37.0-80.0 Not 04- 05-2 (Bld) Interpreta % Availab 017 tion Code le 12:32-0 (22758) 400 Platelets (Bld) 214 10*3/uL Invalid 150-400 Not 0405 -2 [#/Vol] Interpreta K/uL Availab 017 tion Code le 12:32-0 ([id number]) 400 RBC (Bld) [#/Vol] 3.64 10*6/uL Low 4.20-5.40 Not 04 -05-2 M/uL [facility] 017 le 12:32-0 ([id number]) 400 WBC (Bld) [#/Vol] 6.71 10*3/uL Invalid 5.00-10.00 Not 0 05-2 Interpreta K/uL [facility] 017 tion Code le 12:32-0 ([id number]) 400 comp metabolic on 2017-01-26 BILI T 0.9 mg/dL Normal 0.1mg/dL-1 Zac 01-26-2 .4mg/dL Nalini schreiber MD, [facility] 400 ([id number]) Work Phone: TPRO 5.3 g/dL Normal 6.0g/dL-8. Zac 01-26-2 0g/dL Nalini schreiber MD, [facility] 400 ([id number]) Work Phone: cbc with differential on 2017-01-26 MCHC 32.2 pg Normal 32.0pg-36. Zac 0pg Cransto Karl schreiber MD, [facility] 400 ([id number]) Work Phone: urinalysis on 2017-01-07 Clarity (U) Clear Invalid Clear Not Interpreta [facility] 017 tion Code le 11:26-0 ([id number]) 500 Color (U) Yellow Invalid Colorless- Not Interpreta Lt. Yellow [facility] 017 tion Code le 11:26-0 ([id number]) 500 Creatinine (U) 80.5 mg/dL High 0.0-50.0 Not [Mass/Vol] mg/dl [facility]17 le 11:26-0 (21721) 500 Leukocyte esterase Negative Invalid Negative Not 3-2 Test strip Ql (U) Interpreta [facility] 017 tion Code le 11:26-0 (42531) 500 Protein (U) 3+ Abnormal Negative Not [Mass/Vol] [facility] 017 le 11:26-0 ([id number]) 500 RBC LM.HPF (Urine Negative Invalid Not sed) [#/Area] Interpreta [facility] 017 tion Code le 11:26-0 (47890) 500 Specific gravity (U) 1.025 Invalid 1.000-1.03 Not 0 [Rel density] Interpreta 0 [facility] 017 tion Code le 11:26-0 (08905) 500 WBC LM.HPF (Urine Rare/HPF Abnormal Not sed) [#/Area] [facility] 017 le 11:26-0 (29466) 500 other on 2017-01-07 Albumin (U) >2000.0 High 0.0-20.0 Not [Mass/Vol] mg/L [facility]17 le 11:26-0 (77773) 500 Albumin BCG dye 3.1 Low 3.6-5.1 Not [Mass/Vol] g/dL [facility] 017 le 11:26-0 (17228) 500 Bacteria LM Ql Negative Invalid Not (Urine sed) Interpreta [facility] 017 tion Code le 11:26-0 (22986) 500 Bilirubin Confirm Ql N/A Abnormal Negative Not (U) [facility] 017 le 11:26-0 (20167) 500 Bilirubin Ql (U) Negative Invalid Negative Not Interpreta [facility] 017 tion Code le 11:26-0 (13751) 500 Erythrocyte 14.6 % Invalid 11.6-14.8 Not distribution width Interpreta % [facility] 017 (RBC) [Ratio] tion Code le 11:26-0 (18123) 500 GFR/1.73 sq 21 mL/min/{1.73_m2} Low >59 Not 0 032 M.predicted MDRD mL/min/1.7 [facility] 017 (S/P/Bld) [Vol 3m2 le 11:26-0 rate/Area] ([id number]) 500 Glucose Test strip Negative Invalid Negative Not 03 3-2 (U) [Mass/Vol] Interpreta [facility] 017 tion Code le 11:26-0 (66888) 500 HCO3 (P) [Moles/Vol] 22 Invalid 22-33 Not Interpreta mEq/L [facility] 017 tion Code le 11:26-0 (69500) 500 Hemoglobin Ql (U) 1+ Abnormal Negative Not 01-07 [facility] 017 le 11:26-0 (38169) 500 Ketones (U) Negative Invalid Negative Not [Mass/Vol] Interpreta [facility] 017 tion Code le 11:26-0 (80313) 500 MCHC (RBC) 32.1 g/dL Invalid 32.0-36.0 Not [Mass/Vol] Interpreta g/dL [facility] 017 tion Code le 11:26-0 (54710) 500 Nitrite Ql (U) Negative Invalid Negative Not Interpreta [facility] 017 tion Code le 11:26-0 (16013) 500 pH (U) 5.5 [pH] Invalid 5-8.5 Not Interpreta [facility] 017 tion Code le 11:26-0 (44131) 500 Platelet mean volume 9.5 fL Invalid 7.4-10.0 Not (Bld) [Entitic vol] Interpreta fL [facility] 017 tion Code le 11:26-0 (23977) 500 PTH, INTACT 32 Invalid 15-65 Not Interpreta PG/ML [facility] 017 tion Code le 11:26-0 (23230) 500 Urate [Mass/Vol] 6.9 mg/dL Invalid 2.6-7.2 Not Interpreta mg/dL [facility] 017 tion Code le 11:26-0 (65792) 500 Urine Volume Urine Volume Sufficient (10mL) Invalid Not Interpreta [facility] 017 tion Code le 11:26-0 (89591) 500 Urobilinogen Qn (U) 0.2 {Janice'U}/dL Abnormal 0.2-1.0 Not [facility] 017 le 11:26-0 (38800) 500 Yeast.budding Ql No Yeast present Invalid Not 2 (Urine sed) Interpreta [facility] 017 tion Code le 11:26-0 (51473) 500 Urine Saved if Culture Needed (48hrs from Abnormal Not time of collection) [facility] 017 le 11:26-0 (68162) 500 metabolic panel on 2017-01-07 Calcium [Mass/Vol] 8.8 mg/dL Invalid 8.3-10.4 Not 0 3-2 Interpreta mg/dL [facility] 017 tion Code le 11:26-0 (77486) 500 Chloride [Moles/Vol] 113 mmol/L Invalid 95-114 Not 0 2 Interpreta mmol/L [facility] 017 tion Code le 11:26-0 (00230) 500 Creatinine 2.91 mg/dL High 0.50-1.50 Not 2 [Mass/Vol] mg/dL [facility]17 le 11:26-0 (46858) 500 Creatinine 2485.71 High 0.00-100.0 Not 2 [Mass/Vol] 0 mg/g [facility] 017 le 11:26-0 (42373) 500 Glucose [Mass/Vol] 86 mg/dL Invalid 70-110 Not 03-0 3-2 Interpreta mg/dL [facility] 017 tion Code le 11:26-0 (13689) 500 Phosphate [Mass/Vol] 3.7 mg/dL Invalid 2.5-4.8 Not Interpreta mg/dL [facility] 017 tion Code le 11:26-0 (45943) 500 Potassium 4.3 mmol/L Invalid 3.5-5.3 Not [Moles/Vol] Interpreta mmol/L [facility] 017 tion Code le 11:26-0 (56422) 500 Sodium [Moles/Vol] 144 mmol/L Invalid 134-148 Not 01-06 Interpreta mmol/L [facility] 017 tion Code le 11:26-0 (10832) 500 Urea nitrogen 34 mg/dL High 5-25 mg/dL Not [Mass/Vol] [facility] 017 le 11:26-0 (64352) 500 hematology on 2017-01-07 Basophils (Bld) 0.0 10*3/uL Invalid 0.0-0.2 Not 01-07 [#/Vol] Interpreta K/uL [facility] 017 tion Code le 11:26-0 (16092) 500 Basophils/100 WBC 0.70 % Invalid 0.00-2.50 Not 01-07 (Bld) Interpreta % [facility] 017 tion Code le 11:26-0 (88581) 500 Eosinophils (Bld) 0.3 10*3/uL Invalid 0.0-0.7 Not 01-06 [#/Vol] Interpreta K/uL [facility] 017 tion Code le 11:26-0 (77047) 500 Eosinophils/100 WBC 7.0 % Invalid 0.0-7.0 % Not 01-06 (Bld) Interpreta [facility] 017 tion Code le 11:26-0 (00378) 500 Hematocrit (Bld) 34.9 % Low 42.0-52.0 Not [Volume fraction] % [facility] 017 le 11:26-0 (64035) 500 Hemoglobin (Bld) 11.2 g/dL Low 14.0-17.0 Not [Mass/Vol] g/dL [facility] 017 le 11:26-0 (17699) 500 Lymphocytes (Bld) 0.90 10*3/uL Invalid 0.60-3.40 Not [#/Vol] Interpreta K/uL [facility] 017 tion Code le 11:26-0 (74532) 500 Lymphocytes/100 WBC 21.8 % Invalid 10.0-50.0 Not 03- 03-2 (Bld) Interpreta % [facility] 017 tion Code le 11:26-0 (36726) 500 MCH (RBC) [Entitic 29.9 pg Invalid 27.0-31.2 Not 03-0 3-2 mass] Interpreta pg [facility] 017 tion Code le 11:26-0 (16404) 500 MCV (RBC) [Entitic 93.3 fL Invalid 80.0-97.0 Not 03-0 3-2 vol] Interpreta fL [facility] 017 tion Code le 11:26-0 (60273) 500 Monocytes (Bld) 0.7 10*3/uL Invalid 0.0-0.9 Not 01-07 -2 [#/Vol] Interpreta K/uL [facility] 017 tion Code le 11:26-0 (08157) 500 Monocytes/100 WBC 17.4 % High 0.0-12.0 % Not 03-0 3-2 (Bld) [facility] 017 le 11:26-0 (77092) 500 Neutrophils (Bld) 2.19 10*3/uL Invalid 2.00-6.90 Not -2 [#/Vol] Interpreta K/uL [facility] 017 tion Code le 11:26-0 (83473) 500 Neutrophils/100 WBC 53.1 % Invalid 37.0-80.0 Not 03-2 (Bld) Interpreta % [facility] 017 tion Code le 11:26-0 (97020) 500 Platelets (Bld) 140 10*3/uL Low 150-400 Not 01-07 -2 [#/Vol] K/uL [facility] 017 le 11:26-0 (59246) 500 RBC (Bld) [#/Vol] 3.74 10*6/uL Low 4.20-5.40 Not 03-2 M/uL [facility] 017 le 11:26-0 (58215) 500 WBC (Bld) [#/Vol] 4.13 10*3/uL Low 5.00-10.00 Not 0 -03-2 K/uL [facility] 017 le 11:26-0 (25999) 500 comp metabolic on 2016-08-04 BILI T 0.5 mg/dL Normal 0.1mg/dL-1 [place] 08-04-2 .4mg/dL Jose Jstchris schreiber MD, [facility] 400 ([id number]) Work Phone: TPRO 5.9 g/dL Normal 6.0g/dL-8. [place] 08-04-2 0g/dL Jose Jsto Carina schreiber MD, [facility] 400 ([id number]) Work Phone: cbc with differential on 2016-08-04 MCHC 32.2 pg Normal 32.0pg-36. [place] 08-04-2 0pg Nalini schreiber MD, [facility] 400 ([id number]) Work Phone: comp metabolic on 2015-05-27 BILI T 0.6 mg/dL Normal 0.1mg/dL-1 [place] 05-27-2 .4mg/dL Nalini schreiber MD, [facility] 400 ([id number]) Work Phone: TPRO 6.1 g/dL Normal 6.0g/dL-8. [place] 05-27-2 0g/dL Jose Jsto Deanna schreiber MD, [facility] 400 ([id number]) Work Phone: Social History Date Type Detail Facility Start: denies alcohol use [facility] ([id number]) Vital Signs Date Time Vital Sign Value Performing Clinician Facil ity 09-21-2018 BMI (Body Mass 29 kg/m2 Zac cunningham MD, 13:00-0500 [facility] ([id number]) Work Phone: 09-21-2018 Body weight 97 kg Zac wills MD, 13:00-0500 [facility] ([id number]) Work Phone: 09-21-2018 Blood Pressure 130/ Zac cunningham MD, 13:00-0500 68mm[Hg] [facility] ([id number]) Work Phone: 09-21-2018 Height 183 cm Zac wills MD, 13:00-0500 [facility] ([id number]) Work Phone: 09-21-2018 Pulse (Heart Rate) 92 /min Zac Urbina MD, 13:00-0500 [facility] ([id number]) Work Phone: 09-21-2018 Pulse Oximetry 98 % Zac cunningham MD, [facility]:00-0500 [facility] ([id number]) Work Phone: 09-21-2018 Weight 97 kg Zac wills MD, 13:00-0500 [facility] ([id number]) Work Phone: 02-02-2018 Body weight 93 kg Zac wills MD, 02:00-0400 [facility] ([id number]) Work Phone: 01-17-2018 Body weight 93 kg Zac wills MD, 02:00-0400 [facility] ([id number]) Work Phone: 09-20-2017 Body weight 93 kg Zac wills MD, 13:00-0500 [facility] ([id number]) Work Phone: 05-17-2017 Body weight 91 kg Zac wills MD, 02:00-0400 [facility] ([id number]) Work Phone: 03-15-2017 Body weight 96 kg Zac wills MD, 02:00-0400 [facility] ([id number]) Work Phone: 02-15-2017 Body weight 95 kg Zac wills MD, 02:00-0400 [facility] ([id number]) Work Phone: 01-27-2017 Body weight 99 kg Zac wills MD, 02:00-0400 [facility] ([id number]) Work Phone: 01-25-2017 Body weight 99 kg Zac wills MD, 02:00-0400 [facility] ([id number]) Work Phone: 01-11-2017 Body weight 96 kg Zac Chava wills MD, 13:00-0500 [facility] ([id number]) Work Phone: 10-12-2016 Body weight 95 kg Zac wills MD, 13:00-0500 [facility] ([id number]) Work Phone: 06-07-2016 Body weight 94 kg Zac Chava wills MD, 02:00-0400 [facility] ([id number]) Work Phone: 03-30-2016 Body weight 95 kg [place] [facility], [facility]00 [facility] ([id number]) Work Phone: 09-30-2015 Body weight 97 kg Zac wills MD, 13:00-0500 [facility] ([id number]) Work Phone: 07-01-2015 Body weight 96 kg Zac Chava wills MD, 02:00-0400 [facility] ([id number]) Work Phone: 05-27-2015 Body weight 97 kg [place]io [place] MD, 02:00-0400 [facility] ([id number]) Work Phone: 03-28-2014 BMI (Body Mass 29.02 kg/m2 MORA BRADY [facility] 15:30-399 [facility]) [facility] ([id number]) 03-28-2014 Body Temperature 99 [degF] [facility] ([id number]) 03-28-2014 Body weight 97.07 kg MORA Medley [facility] 15:30-0400 [facility] ([id number]) 03-28-2014 Blood Pressure 136/ MORA BRADY [place] [email or web address] 15:30-040 70mm[Hg] [facility] ([id number]) 03-28-2014 BSA (Body Surface 2.22 m2 [facility] 15:30-0400 Area) [facility] ([id number]) 03-28-2014 Height 182.88 cm OM[facility] Medley [facility] 15:30-0400 [facility] ([id number]) 03-28-2014 Pulse (Heart Rate) 50 /min [facility] 15:30-0400 [facility] ([id number]) 03-28-2014 Pulse Oximetry 96 % [facility] 15:30-0400 [facility] ([id number]) 03-28-2014 Respiratory Rate 24 /min [facility] 15:30-0400 [facility] ([id number]) Functional Status The data below is from unstructured sources Query Response Date Ebar rded Patient Orientation Person Unable to Assess May 31, 2016 1:22pm Patient Orientation Person Place Time Situation June 01, 2016 1:31pm Comprehension Ability Understands Co ncepts June 01, 2016 9:00am Query Response Date Bear rded Patient Orientation Confused September 15, 2018 10:42am Patient Orientation Person Place Confused Eyes Open September 15, 2018 8:00am Comprehension Ability Unable to Comp rehend September 15, 2018 8:25am Mental Status No Information Advance Directives Directive Response Recor ded Date/Time Advance Directives Yes 0 05/28/16 6:38am Health Care Power of Pile Driving Nozzleman Y KAI ALEXANDER 05/28/16 6:38am Organ Donor No 05/28/16 6:38am Resuscitation Status Full Code 05/28/16 6:38am Directive Response Recor ded Date/Time Advance Directives Yes 1 6:31pm Health Care Power of Pile Driving Nozzleman Y ON CHART 08/19/14 6:31pm Organ Donor No 08/19/14 6:31pm Resuscitation Status DNR-Pt Request 08/19/14 6:31pm Directive Response Recor ded Date/Time Advance Directives Yes 0 05/18/18 9:01pm Health Care Power of Pile Driving Nozzleman Y - SON RAND Y 05/18/18 9:01pm Organ Donor No 05/18/18 9:01pm Resuscitation Status DNR-Pt Request 05/18/18 9:01pm Directive Response Recor ded Date/Time Advance Directives Yes 1 11/13/17 7:45am Health Care Power of Pile Driving Nozzleman Mario - KAI Almazan 09/13/18 7:45am Organ Donor No 09/13/18 7:45am Resuscitation Status Full Code 09/13/18 7:45am Discharge Instructions Patient Instructions Physician Instructions Prescription: Transmitted to Pharmacy Patient Instructions: AVOID SALTY FOODS INCREASE ACTIVITY TAKE ALL OF ANTIBIOTIC Resume Normal Activity: Yes Discharge Diet: Low Sodium Diet, ADA Diet Drink 6-8 Glasses of Fluid/Day: Yes Driving Instructions: No Driving for 24 Hours Symptoms to Reoprt to : Appetite Changes, Swelling Increased, Bleeding Excessive, Fever Over 101 Degrees F, Pain/Pressure in Chest, Cough Up/Vomit Blood, Diarrhea(Persistant), Memory Changes Suddenly, Questions/Concerns, Shortness of Breath, Weight Gain Over 2 Pounds For Problems or Questions: Contact Your Physician, Go to Emergency Room Infection Signs and Symptoms: Temperature Above 101 F Care Plan Patient Instructions:: AVOID SALTY FOODSINCREASE ACTIVITYTAKE ALL OF ANTIBIOTIC No hospital discharge instructions.No hospital discharge instruction information available.No hospital discharge instruction information available. Summary Purpose Interface ExchangeInterface ExchangeInterface ExchangeInterface ExchangeInterface ExchangeInterface ExchangeInterface ExchangeInterface Exchange Family History Diagnosis Age At Onset Diabetes Unknown Arthritis Unknown Diagnosis Age At Onset Cancer Unknown Diagnosis Age At Onset Arthritis Unknown Diagnosis Age At Onset Diabetes Unknown Arthritis Unknown Hypertension Unknown Assessments Condition Codes Effectiv e Dates Encounter for general adult medical exam ination with abnormal findings ICD-10: Z00.01 ICD-9: V70.0 02/02/2018 Type 2 diabetes mellitus without complications ICD-10: E11.9 ICD-9: 250.00 01/17/2018 Rash and other nonspecific skin eruption ICD-10: R21 ICD-9: 782.1 01/17/2018 Chronic atrial fibrillation ICD-10: I48.2 ICD-9: 427.31 01/17/2018 Essential (primary) hypertension ICD -10: I10 ICD-9: 401.1 01/17/2018 Type 2 diabetes mellitus with hyperglycemia ICD-10: E11.65 ICD-9: 250.00 09/20/2017 Anemia in chronic kidney disease ICD -10: D63.1 ICD-9: 285.21 09/20/2017 Chronic kidney disease, stage 4 (severe) ICD-10: N18.4 ICD-9: 585.4 09/20/2017 Vitamin D deficiency, unspecified IC D-10: E55.9 ICD-9: 268.9 09/20/2017 Essential (primary) hypertension ICD -10: I10 ICD-9: 401.9 01/25/2017 Unilateral inguinal hernia, without obst ruction or gangrene, recurrent ICD-10: K40.91 ICD-9: 550.91 08/04/2016 Fracture of other parts of pelvis, subse quent encounter for fracture with delayed healing ICD-10: S32.89XG ICD-9: V54.19 08/04/2016 Dysuria ICD-10: R30.0 ICD-9: 788.1 08/04/2016 Type 1 diabetes mellitus without complications ICD-10: E10.9 ICD-9: 250.00 09/30/2015 Impacted cerumen, right ear ICD-10: H61.21 ICD-9: 389.8 09/30/2015 ESSENTIAL HYPERTENSION ICD-9: 401.9 07/01/2015 DIABETES TYPE II ICD-9: 250.00 07/01/2015 ATRIAL FIBRILLATION ICD-9: 427.31 07/01/2015 Elevated digoxin level ICD-9: 796.0 07/01/2015 Condition Codes Effectiv e Dates Pneumonia, unspecified organism ICD- 10: J18.9 ICD-9: 486 09/21/2018 Anemia in chronic kidney disease ICD -10: D63.1 ICD-9: 285.21 09/21/2018 Muscle weakness (generalized) ICD-10 : M62.81 ICD-9: 728.87 09/21/2018 Essential (primary) hypertension ICD -10: I10 ICD-9: 401.1 09/21/2018 Chronic atrial fibrillation ICD-10: I48.2 ICD-9: 427.31 09/21/2018 Encounter for general adult medical exam ination with abnormal findings ICD-10: Z00.01 ICD-9: V70.0 02/02/2018 Type 2 diabetes mellitus without complications ICD-10: E11.9 ICD-9: 250.00 01/17/2018 Rash and other nonspecific skin eruption ICD-10: R21 ICD-9: 782.1 01/17/2018 Type 2 diabetes mellitus with hyperglycemia ICD-10: E11.65 ICD-9: 250.00 09/20/2017 Chronic kidney disease, stage 4 (severe) ICD-10: N18.4 ICD-9: 585.4 09/20/2017 Vitamin D deficiency, unspecified IC D-10: E55.9 ICD-9: 268.9 09/20/2017 Essential (primary) hypertension ICD -10: I10 ICD-9: 401.9 01/25/2017 Unilateral inguinal hernia, without obst ruction or gangrene, recurrent ICD-10: K40.91 ICD-9: 550.91 08/04/2016 Fracture of other parts of pelvis, subse quent encounter for fracture with delayed healing ICD-10: S32.89XG ICD-9: V54.19 08/04/2016 Dysuria ICD-10: R30.0 ICD-9: 788.1 08/04/2016 Type 1 diabetes mellitus without complications ICD-10: E10.9 ICD-9: 250.00 09/30/2015 Impacted cerumen, right ear ICD-10: H61.21 ICD-9: 389.8 09/30/2015 ESSENTIAL HYPERTENSION ICD-9: 401.9 07/01/2015 DIABETES TYPE II ICD-9: 250.00 07/01/2015 ATRIAL FIBRILLATION ICD-9: 427.31 07/01/2015 Elevated digoxin level ICD-9: 796.0 07/01/2015 Condition Codes Effectiv e Dates Essential (primary) hypertension ICD -10: I10 ICD-9: 401.1 03/15/2017 Type 2 diabetes mellitus without complications ICD-10: E11.9 ICD-9: 250.00 03/15/2017 Chronic atrial fibrillation ICD-10: I48.2 ICD-9: 427.31 03/15/2017 Type 2 diabetes mellitus with hyperglycemia ICD-10: E11.65 ICD-9: 250.00 02/15/2017 Anemia in chronic kidney disease ICD -10: D63.1 ICD-9: 285.21 02/15/2017 Encounter for general adult medical exam ination with abnormal findings ICD-10: Z00.01 ICD-9: V70.0 01/27/2017 Essential (primary) hypertension ICD -10: I10 ICD-9: 401.9 01/25/2017 Unilateral inguinal hernia, without obst ruction or gangrene, recurrent ICD-10: K40.91 ICD-9: 550.91 08/04/2016 Fracture of other parts of pelvis, subse quent encounter for fracture with delayed healing ICD-10: S32.89XG ICD-9: V54.19 08/04/2016 Dysuria ICD-10: R30.0 ICD-9: 788.1 08/04/2016 Type 1 diabetes mellitus without complications ICD-10: E10.9 ICD-9: 250.00 09/30/2015 Impacted cerumen, right ear ICD-10: H61.21 ICD-9: 389.8 09/30/2015 ESSENTIAL HYPERTENSION ICD-9: 401.9 07/01/2015 DIABETES TYPE II ICD-9: 250.00 07/01/2015 ATRIAL FIBRILLATION ICD-9: 427.31 07/01/2015 Elevated digoxin level ICD-9: 796.0 07/01/2015 Condition Codes Effectiv e Dates Type 2 diabetes mellitus without complications ICD-10: E11.9 ICD-9: 250.00 05/17/2017 Essential (primary) hypertension ICD -10: I10 ICD-9: 401.1 05/17/2017 Anemia in chronic kidney disease ICD -10: D63.1 ICD-9: 285.21 05/17/2017 Chronic atrial fibrillation ICD-10: I48.2 ICD-9: 427.31 03/15/2017 Type 2 diabetes mellitus with hyperglycemia ICD-10: E11.65 ICD-9: 250.00 02/15/2017 Encounter for general adult medical exam ination with abnormal findings ICD-10: Z00.01 ICD-9: V70.0 01/27/2017 Essential (primary) hypertension ICD -10: I10 ICD-9: 401.9 01/25/2017 Unilateral inguinal hernia, without obst ruction or gangrene, recurrent ICD-10: K40.91 ICD-9: 550.91 08/04/2016 Fracture of other parts of pelvis, subse quent encounter for fracture with delayed healing ICD-10: S32.89XG ICD-9: V54.19 08/04/2016 Dysuria ICD-10: R30.0 ICD-9: 788.1 08/04/2016 Type 1 diabetes mellitus without complications ICD-10: E10.9 ICD-9: 250.00 09/30/2015 Impacted cerumen, right ear ICD-10: H61.21 ICD-9: 389.8 09/30/2015 ESSENTIAL HYPERTENSION ICD-9: 401.9 07/01/2015 DIABETES TYPE II ICD-9: 250.00 07/01/2015 ATRIAL FIBRILLATION ICD-9: 427.31 07/01/2015 Elevated digoxin level ICD-9: 796.0 07/01/2015 Chief Complaint Reason For Visit Effective Dates Notes Annual Medicare Wellness Exam 02/02/2018 diabetes mellitus 01/17/2018 diabetes mellitus 09/20/2017 diabetes mellitus 05/17/2017 diabetes mellitus 03/15/2017 diabetes mellitus 02/15/2017 Annual Medicare Wellness Exam 01/27/2017 diabetes mellitus 01/25/2017 hypoglycemia hypertension 01/11/2017 hypertension 10/12/2016 hip pain 08/04/2016 Hospital Follow Up 06/07/2016 hypertension 03/30/2016 hypertension 09/30/2015 hypertension 07/01/2015 hypertension 05/27/2015 Reason For Visit Effective Dates Notes Hospital Follow Up 09/21/2018 Annual Medicare Wellness Exam 02/02/2018 diabetes mellitus 01/17/2018 diabetes mellitus 09/20/2017 diabetes mellitus 05/17/2017 diabetes mellitus 03/15/2017 diabetes mellitus 02/15/2017 Annual Medicare Wellness Exam 01/27/2017 diabetes mellitus 01/25/2017 hypoglycemia hypertension 01/11/2017 hypertension 10/12/2016 hip pain 08/04/2016 Hospital Follow Up 06/07/2016 hypertension 03/30/2016 hypertension 09/30/2015 hypertension 07/01/2015 hypertension 05/27/2015 Reason For Visit Effective Dates Notes diabetes mellitus 03/15/2017 diabetes mellitus 02/15/2017 Annual Medicare Wellness Exam 01/27/2017 diabetes mellitus 01/25/2017 hypoglycemia hypertension 01/11/2017 hypertension 10/12/2016 hip pain 08/04/2016 Hospital Follow Up 06/07/2016 hypertension 03/30/2016 hypertension 09/30/2015 hypertension 07/01/2015 hypertension 05/27/2015 Reason For Visit Effective Dates Notes diabetes mellitus 05/17/2017 diabetes mellitus 03/15/2017 diabetes mellitus 02/15/2017 Annual Medicare Wellness Exam 01/27/2017 diabetes mellitus 01/25/2017 hypoglycemia hypertension 01/11/2017 hypertension 10/12/2016 hip pain 08/04/2016 Hospital Follow Up 06/07/2016 hypertension 03/30/2016 hypertension 09/30/2015 hypertension 07/01/2015 hypertension 05/27/2015 Review of System System Result Effective Dates Constitutional No recent illness 02/02/2018 Constitutional No chills 02/02/2018 Constitutional No diaphoresis 02/02/2018 Constitutional No fever 02/02/2018 Eyes No eye erythema Ears/Nose/Throat/Neck No nasal discharge 02/02/2018 Cardiovascular No chest pain/pressure 02/02/2018 Cardiovascular No dyspnea 02/02/2018 Respiratory No cough Respiratory No dyspnea 0 02/02/2018 Neurologic No alteration of consciousness 02/02/2018 Neurologic No mental status change 02/02/2018 Constitutional No recent illness 01/17/2018 Constitutional No anorexia 01/17/2018 Constitutional No night sweats 01/17/2018 Constitutional No chills 01/17/2018 Constitutional No diaphoresis 01/17/2018 Constitutional No fever 01/17/2018 Eyes No blindness 2017 Ears/Nose/Throat/Neck hearing loss 01/17/2018 Ears/Nose/Throat/Neck No nasal allergies 01/17/2018 Ears/Nose/Throat/Neck No nasal discharge 01/17/2018 Cardiovascular No chest pain/pressure 01/17/2018 Cardiovascular No dyspnea 01/17/2018 Respiratory No cough Respiratory No dyspnea 0 01/17/2018 Gastrointestinal No constipation 01/17/2018 Gastrointestinal No diarrhea 01/17/2018 Genitourinary/Nephrology No dysuria 01/17/2018 Musculoskeletal No joint complaint 01/17/2018 Dermatologic rash 2017 Neurologic No alteration of consciousness 01/17/2018 Neurologic No mental status change 01/17/2018 Psychiatric No depression 01/17/2018 Constitutional No chills 09/20/2017 Constitutional No diaphoresis 09/20/2017 Constitutional No fever 09/20/2017 Eyes No blindness 2016 Ears/Nose/Throat/Neck hearing loss 09/20/2017 Ears/Nose/Throat/Neck No nasal allergies 09/20/2017 Ears/Nose/Throat/Neck No nasal discharge 09/20/2017 Cardiovascular No chest pain/pressure 09/20/2017 Cardiovascular No dyspnea 09/20/2017 Respiratory No cough Respiratory No dyspnea 1 11/20/2016 Gastrointestinal No constipation 09/20/2017 Gastrointestinal No diarrhea 09/20/2017 Genitourinary/Nephrology No dysuria 09/20/2017 Musculoskeletal No joint complaint 09/20/2017 Dermatologic rash 2016 Neurologic No alteration of consciousness 09/20/2017 Neurologic No mental status change 09/20/2017 Constitutional No recent illness 09/20/2017 Constitutional No anorexia 09/20/2017 Constitutional No night sweats 09/20/2017 Psychiatric No depression 09/20/2017 Constitutional No chills 05/17/2017 Constitutional No diaphoresis 05/17/2017 Constitutional No fever 05/17/2017 Eyes No blindness 2016 Ears/Nose/Throat/Neck No nasal allergies 05/17/2017 Ears/Nose/Throat/Neck No nasal discharge 05/17/2017 Cardiovascular No chest pain/pressure 05/17/2017 Cardiovascular No dyspnea 05/17/2017 Respiratory No cough 09/2017 Respiratory No dyspnea 0 05/17/2017 Gastrointestinal No constipation 05/17/2017 Gastrointestinal No diarrhea 05/17/2017 Genitourinary/Nephrology No dysuria 05/17/2017 Musculoskeletal No joint complaint 05/17/2017 Dermatologic rash 2016 Neurologic No alteration of consciousness 05/17/2017 Neurologic No mental status change 05/17/2017 Ears/Nose/Throat/Neck hearing loss 05/17/2017 Constitutional No chills 03/15/2017 Constitutional No diaphoresis 03/15/2017 Constitutional No fever 03/15/2017 Eyes No blindness 2016 Ears/Nose/Throat/Neck nasal allergies 03/15/2017 Ears/Nose/Throat/Neck nasal discharge 03/15/2017 Cardiovascular No chest pain/pressure 03/15/2017 Cardiovascular No dyspnea 03/15/2017 Respiratory cough 2016 Respiratory No dyspnea 0 03/15/2017 Gastrointestinal No constipation 03/15/2017 Gastrointestinal No diarrhea 03/15/2017 Genitourinary/Nephrology No dysuria 03/15/2017 Musculoskeletal No joint complaint 03/15/2017 Dermatologic No rash 07/2017 Neurologic No alteration of consciousness 03/15/2017 Neurologic No mental status change 03/15/2017 Constitutional No chills 02/15/2017 Constitutional No diaphoresis 02/15/2017 Constitutional No fever 02/15/2017 Eyes No blindness 2016 Ears/Nose/Throat/Neck No nasal allergies 02/15/2017 Ears/Nose/Throat/Neck No nasal discharge 02/15/2017 Cardiovascular No chest pain/pressure 02/15/2017 Cardiovascular No dyspnea 02/15/2017 Respiratory No cough 09/2017 Respiratory No dyspnea 0 02/15/2017 Neurologic No alteration of consciousness 02/15/2017 Neurologic No mental status change 02/15/2017 Gastrointestinal No constipation 02/15/2017 Gastrointestinal No diarrhea 02/15/2017 Genitourinary/Nephrology No dysuria 02/15/2017 Musculoskeletal No joint complaint 02/15/2017 Dermatologic No rash 09/2017 Constitutional No chills 01/27/2017 Constitutional No diaphoresis 01/27/2017 Constitutional No fever 01/27/2017 Eyes No eye erythema Ears/Nose/Throat/Neck No nasal allergies 01/27/2017 Ears/Nose/Throat/Neck No nasal discharge 01/27/2017 Cardiovascular No chest pain/pressure 01/27/2017 Cardiovascular No dyspnea 01/27/2017 Respiratory No cough Respiratory No dyspnea 0 01/27/2017 Neurologic No alteration of consciousness 01/27/2017 Neurologic No mental status change 01/27/2017 Constitutional recent illness 01/25/2017 Constitutional No anorexia 01/25/2017 Gastrointestinal No abdominal pain 01/25/2017 Gastrointestinal No constipation 01/25/2017 Gastrointestinal No diarrhea 01/25/2017 Constitutional No night sweats 01/25/2017 Constitutional No chills 01/25/2017 Constitutional No diaphoresis 01/25/2017 Constitutional fatigue 0 01/25/2017 Constitutional No fever 01/25/2017 Constitutional No insomnia 01/25/2017 Constitutional No malaise 01/25/2017 Constitutional No weight loss 01/25/2017 Constitutional No weight gain 01/25/2017 Eyes No eye erythema Eyes No eye discharge Respiratory cough 2016 Ears/Nose/Throat/Neck nasal allergies 01/25/2017 Ears/Nose/Throat/Neck nasal discharge 01/25/2017 Cardiovascular No chest pain/pressure 01/25/2017 Genitourinary/Nephrology No dysuria 01/25/2017 Musculoskeletal joint complaint 01/25/2017 Dermatologic No rash Neurologic No alteration of consciousness 01/25/2017 Constitutional recent illness 01/11/2017 Constitutional No anorexia 01/11/2017 Constitutional No night sweats 01/11/2017 Constitutional No chills 01/11/2017 Constitutional No diaphoresis 01/11/2017 Constitutional fatigue 0 01/11/2017 Constitutional No fever 01/11/2017 Constitutional No insomnia 01/11/2017 Constitutional No malaise 01/11/2017 Eyes No eye discharge Eyes No eye erythema 05/2017 Ears/Nose/Throat/Neck nasal allergies 01/11/2017 Ears/Nose/Throat/Neck nasal discharge 01/11/2017 Cardiovascular No chest pain/pressure 01/11/2017 Respiratory cough 2016 Gastrointestinal No abdominal pain 01/11/2017 Gastrointestinal No constipation 01/11/2017 Gastrointestinal No diarrhea 01/11/2017 Genitourinary/Nephrology No dysuria 01/11/2017 Musculoskeletal joint complaint 01/11/2017 Dermatologic No rash 05/2017 Neurologic No alteration of consciousness 01/11/2017 Constitutional No recent illness 10/12/2016 Constitutional No chills 10/12/2016 Constitutional fatigue 1 12/13/2015 Constitutional No fever 10/12/2016 Constitutional No insomnia 10/12/2016 Constitutional malaise 1 12/13/2015 Eyes No blindness 2015 Eyes No vision change Ears/Nose/Throat/Neck No dental pain 10/12/2016 Ears/Nose/Throat/Neck No dizziness 10/12/2016 Ears/Nose/Throat/Neck No dysphagia 10/12/2016 Ears/Nose/Throat/Neck No headache 10/12/2016 Ears/Nose/Throat/Neck No hearing loss 10/12/2016 Ears/Nose/Throat/Neck No nasal allergies 10/12/2016 Ears/Nose/Throat/Neck No sore throat 10/12/2016 Ears/Nose/Throat/Neck No postnasal drip 10/12/2016 Ears/Nose/Throat/Neck No sinus congestion 10/12/2016 Cardiovascular No chest pain/pressure 10/12/2016 Cardiovascular No dyspnea 10/12/2016 Cardiovascular No edema 10/12/2016 Cardiovascular fatigue 1 12/13/2015 Cardiovascular No near-syncope/dizziness 10/12/2016 Respiratory No chest tightness 10/12/2016 Respiratory No cough 04/2016 Respiratory No dyspnea 1 12/13/2015 Respiratory No pedal edema 10/12/2016 Gastrointestinal No abdominal pain 10/12/2016 Gastrointestinal No constipation 10/12/2016 Gastrointestinal No diarrhea 10/12/2016 Gastrointestinal No gastroesophageal reflu x 10/12/2016 Gastrointestinal No nausea 10/12/2016 Gastrointestinal No vomiting 10/12/2016 Genitourinary/Nephrology No dysuria 10/12/2016 Genitourinary/Nephrology No nocturia 10/12/2016 Genitourinary/Nephrology No urinary incontinence 10/12/2016 Musculoskeletal No stiffness 10/12/2016 Musculoskeletal No swelling 10/12/2016 Musculoskeletal No muscle weakness 10/12/2016 Musculoskeletal No myalgias 10/12/2016 Dermatologic No rash 04/2016 Dermatologic No sores Dermatologic No scar 04/2016 Neurologic No dizziness 10/12/2016 Neurologic No headache 1 12/13/2015 Neurologic No neck pain 10/12/2016 Neurologic No syncope Psychiatric No anxiety 1 12/13/2015 Psychiatric No depression 10/12/2016 Constitutional No recent illness 08/04/2016 Constitutional No chills 08/04/2016 Constitutional fatigue 0 08/04/2016 Constitutional No fever 08/04/2016 Constitutional No insomnia 08/04/2016 Constitutional malaise 0 08/04/2016 Eyes No blindness 2015 Eyes No vision change Ears/Nose/Throat/Neck No dental pain 08/04/2016 Ears/Nose/Throat/Neck No dizziness 08/04/2016 Ears/Nose/Throat/Neck No dysphagia 08/04/2016 Ears/Nose/Throat/Neck No headache 08/04/2016 Ears/Nose/Throat/Neck No hearing loss 08/04/2016 Ears/Nose/Throat/Neck No nasal allergies 08/04/2016 Ears/Nose/Throat/Neck No sore throat 08/04/2016 Ears/Nose/Throat/Neck No postnasal drip 08/04/2016 Ears/Nose/Throat/Neck No sinus congestion 08/04/2016 Cardiovascular No chest pain/pressure 08/04/2016 Cardiovascular No dyspnea 08/04/2016 Cardiovascular No edema 08/04/2016 Cardiovascular fatigue 0 08/04/2016 Cardiovascular No near-syncope/dizziness 08/04/2016 Respiratory No chest tightness 08/04/2016 Respiratory No cough Respiratory No dyspnea 0 08/04/2016 Respiratory No pedal edema 08/04/2016 Gastrointestinal No abdominal pain 08/04/2016 Gastrointestinal constipation 08/04/2016 Gastrointestinal No diarrhea 08/04/2016 Gastrointestinal No gastroesophageal reflu x 08/04/2016 Gastrointestinal No nausea 08/04/2016 Gastrointestinal No vomiting 08/04/2016 Genitourinary/Nephrology No dysuria 08/04/2016 Genitourinary/Nephrology No nocturia 08/04/2016 Genitourinary/Nephrology No urinary incontinence 08/04/2016 Musculoskeletal No stiffness 08/04/2016 Musculoskeletal No swelling 08/04/2016 Musculoskeletal No muscle weakness 08/04/2016 Musculoskeletal No myalgias 08/04/2016 Dermatologic No rash Dermatologic No sores Dermatologic No scar Neurologic No dizziness 08/04/2016 Neurologic No headache 0 08/04/2016 Neurologic No neck pain 08/04/2016 Neurologic No syncope Psychiatric No anxiety 0 08/04/2016 Psychiatric No depression 08/04/2016 Genitourinary/Nephrology testicular pain 08/04/2016 Constitutional No recent illness 06/07/2016 Constitutional No chills 06/07/2016 Constitutional fatigue 0 06/07/2016 Constitutional No fever 06/07/2016 Constitutional No insomnia 06/07/2016 Constitutional malaise 0 06/07/2016 Eyes No blindness 2015 Eyes No vision change Ears/Nose/Throat/Neck No dental pain 06/07/2016 Ears/Nose/Throat/Neck No dizziness 06/07/2016 Ears/Nose/Throat/Neck No dysphagia 06/07/2016 Ears/Nose/Throat/Neck No headache 06/07/2016 Ears/Nose/Throat/Neck No hearing loss 06/07/2016 Ears/Nose/Throat/Neck No nasal allergies 06/07/2016 Ears/Nose/Throat/Neck No sore throat 06/07/2016 Ears/Nose/Throat/Neck No postnasal drip 06/07/2016 Ears/Nose/Throat/Neck No sinus congestion 06/07/2016 Cardiovascular No chest pain/pressure 06/07/2016 Cardiovascular No dyspnea 06/07/2016 Cardiovascular No edema 06/07/2016 Cardiovascular fatigue 0 06/07/2016 Cardiovascular No near-syncope/dizziness 06/07/2016 Respiratory No chest tightness 06/07/2016 Respiratory No cough 11/2015 Respiratory No dyspnea 0 06/07/2016 Respiratory No pedal edema 06/07/2016 Gastrointestinal No abdominal pain 06/07/2016 Gastrointestinal No constipation 06/07/2016 Gastrointestinal No diarrhea 06/07/2016 Gastrointestinal No gastroesophageal reflu x 06/07/2016 Gastrointestinal No nausea 06/07/2016 Gastrointestinal No vomiting 06/07/2016 Genitourinary/Nephrology No dysuria 06/07/2016 Genitourinary/Nephrology No nocturia 06/07/2016 Genitourinary/Nephrology No urinary incontinence 06/07/2016 Musculoskeletal No stiffness 06/07/2016 Musculoskeletal No swelling 06/07/2016 Musculoskeletal No muscle weakness 06/07/2016 Musculoskeletal No myalgias 06/07/2016 Dermatologic No rash 11/2015 Dermatologic No sores Dermatologic No scar 11/2015 Neurologic No dizziness 06/07/2016 Neurologic No headache 0 06/07/2016 Neurologic No neck pain 06/07/2016 Neurologic No syncope Psychiatric No anxiety 0 06/07/2016 Psychiatric No depression 06/07/2016 Constitutional No recent illness 03/30/2016 Constitutional No chills 03/30/2016 Constitutional fatigue 0 03/30/2016 Constitutional No fever 03/30/2016 Constitutional No insomnia 03/30/2016 Constitutional malaise 0 03/30/2016 Eyes No blindness 2015 Eyes No vision change Ears/Nose/Throat/Neck No dental pain 03/30/2016 Ears/Nose/Throat/Neck No dizziness 03/30/2016 Ears/Nose/Throat/Neck No dysphagia 03/30/2016 Ears/Nose/Throat/Neck No headache 03/30/2016 Ears/Nose/Throat/Neck No hearing loss 03/30/2016 Ears/Nose/Throat/Neck No nasal allergies 03/30/2016 Ears/Nose/Throat/Neck No sore throat 03/30/2016 Ears/Nose/Throat/Neck No postnasal drip 03/30/2016 Ears/Nose/Throat/Neck No sinus congestion 03/30/2016 Cardiovascular No chest pain/pressure 03/30/2016 Cardiovascular No dyspnea 03/30/2016 Cardiovascular No edema 03/30/2016 Cardiovascular fatigue 0 03/30/2016 Cardiovascular No near-syncope/dizziness 03/30/2016 Respiratory No chest tightness 03/30/2016 Respiratory No cough Respiratory No dyspnea 0 03/30/2016 Respiratory No pedal edema 03/30/2016 Gastrointestinal No abdominal pain 03/30/2016 Gastrointestinal No constipation 03/30/2016 Gastrointestinal No diarrhea 03/30/2016 Gastrointestinal No gastroesophageal reflu x 03/30/2016 Gastrointestinal No nausea 03/30/2016 Gastrointestinal No vomiting 03/30/2016 Genitourinary/Nephrology No dysuria 03/30/2016 Genitourinary/Nephrology No nocturia 03/30/2016 Genitourinary/Nephrology No urinary incontinence 03/30/2016 Musculoskeletal No stiffness 03/30/2016 Musculoskeletal No swelling 03/30/2016 Musculoskeletal No muscle weakness 03/30/2016 Musculoskeletal No myalgias 03/30/2016 Dermatologic No rash Dermatologic No sores Dermatologic No scar Neurologic No dizziness 03/30/2016 Neurologic No headache 0 03/30/2016 Neurologic No neck pain 03/30/2016 Neurologic No syncope Psychiatric No anxiety 0 03/30/2016 Psychiatric No depression 03/30/2016 Constitutional No recent illness 09/30/2015 Constitutional No chills 09/30/2015 Constitutional fatigue 1 11/30/2014 Constitutional No fever 09/30/2015 Constitutional No insomnia 09/30/2015 Constitutional malaise 1 11/30/2014 Eyes No blindness 2014 Eyes No vision change Ears/Nose/Throat/Neck No dental pain 09/30/2015 Ears/Nose/Throat/Neck No dizziness 09/30/2015 Ears/Nose/Throat/Neck No dysphagia 09/30/2015 Ears/Nose/Throat/Neck No headache 09/30/2015 Ears/Nose/Throat/Neck No hearing loss 09/30/2015 Ears/Nose/Throat/Neck No nasal allergies 09/30/2015 Ears/Nose/Throat/Neck No sore throat 09/30/2015 Ears/Nose/Throat/Neck No postnasal drip 09/30/2015 Ears/Nose/Throat/Neck No sinus congestion 09/30/2015 Cardiovascular No chest pain/pressure 09/30/2015 Cardiovascular No dyspnea 09/30/2015 Cardiovascular No edema 09/30/2015 Cardiovascular exercise intolerance 09/30/2015 Cardiovascular fatigue 1 11/30/2014 Cardiovascular No near-syncope/dizziness 09/30/2015 Respiratory No chest tightness 09/30/2015 Respiratory No cough Respiratory No dyspnea 1 11/30/2014 Respiratory No pedal edema 09/30/2015 Gastrointestinal No abdominal pain 09/30/2015 Gastrointestinal No constipation 09/30/2015 Gastrointestinal No diarrhea 09/30/2015 Gastrointestinal No gastroesophageal reflu x 09/30/2015 Gastrointestinal No nausea 09/30/2015 Gastrointestinal No vomiting 09/30/2015 Genitourinary/Nephrology No dysuria 09/30/2015 Genitourinary/Nephrology No nocturia 09/30/2015 Genitourinary/Nephrology No urinary incontinence 09/30/2015 Musculoskeletal No stiffness 09/30/2015 Musculoskeletal No swelling 09/30/2015 Musculoskeletal No muscle weakness 09/30/2015 Musculoskeletal No myalgias 09/30/2015 Dermatologic No rash Dermatologic No sores Dermatologic No scar Neurologic No dizziness 09/30/2015 Neurologic No headache 1 11/30/2014 Neurologic No neck pain 09/30/2015 Neurologic No syncope Psychiatric No anxiety 1 11/30/2014 Psychiatric No depression 09/30/2015 Constitutional No recent illness 07/01/2015 Constitutional No chills 07/01/2015 Constitutional fatigue 0 07/01/2015 Constitutional No fever 07/01/2015 Constitutional No insomnia 07/01/2015 Constitutional malaise 0 07/01/2015 Eyes No blindness 2014 Eyes No vision change Ears/Nose/Throat/Neck No dental pain 07/01/2015 Ears/Nose/Throat/Neck No dizziness 07/01/2015 Ears/Nose/Throat/Neck No dysphagia 07/01/2015 Ears/Nose/Throat/Neck No headache 07/01/2015 Ears/Nose/Throat/Neck No hearing loss 07/01/2015 Ears/Nose/Throat/Neck No nasal allergies 07/01/2015 Ears/Nose/Throat/Neck No sore throat 07/01/2015 Ears/Nose/Throat/Neck No postnasal drip 07/01/2015 Ears/Nose/Throat/Neck No sinus congestion 07/01/2015 Cardiovascular No chest pain/pressure 07/01/2015 Cardiovascular No dyspnea 07/01/2015 Cardiovascular No edema 07/01/2015 Cardiovascular exercise intolerance 07/01/2015 Cardiovascular fatigue 0 07/01/2015 Cardiovascular No near-syncope/dizziness 07/01/2015 Respiratory No chest tightness 07/01/2015 Respiratory No cough Respiratory No dyspnea 0 07/01/2015 Respiratory No pedal edema 07/01/2015 Gastrointestinal No abdominal pain 07/01/2015 Gastrointestinal No constipation 07/01/2015 Gastrointestinal No diarrhea 07/01/2015 Gastrointestinal No gastroesophageal reflu x 07/01/2015 Gastrointestinal No nausea 07/01/2015 Gastrointestinal No vomiting 07/01/2015 Genitourinary/Nephrology No dysuria 07/01/2015 Genitourinary/Nephrology No nocturia 07/01/2015 Genitourinary/Nephrology No urinary incontinence 07/01/2015 Musculoskeletal No stiffness 07/01/2015 Musculoskeletal No swelling 07/01/2015 Musculoskeletal No muscle weakness 07/01/2015 Musculoskeletal No myalgias 07/01/2015 Dermatologic No rash Dermatologic No sores Dermatologic No scar Neurologic No dizziness 07/01/2015 Neurologic No headache 0 07/01/2015 Neurologic No neck pain 07/01/2015 Neurologic No syncope Psychiatric No anxiety 0 07/01/2015 Psychiatric No depression 07/01/2015 Constitutional No recent illness 05/27/2015 Constitutional No chills 05/27/2015 Constitutional fatigue 0 05/27/2015 Constitutional No fever 05/27/2015 Constitutional No insomnia 05/27/2015 Constitutional malaise 0 05/27/2015 Eyes No blindness 2014 Eyes No vision change Ears/Nose/Throat/Neck No dental pain 05/27/2015 Ears/Nose/Throat/Neck No dizziness 05/27/2015 Ears/Nose/Throat/Neck No dysphagia 05/27/2015 Ears/Nose/Throat/Neck No headache 05/27/2015 Ears/Nose/Throat/Neck No hearing loss 05/27/2015 Ears/Nose/Throat/Neck No nasal allergies 05/27/2015 Ears/Nose/Throat/Neck No sore throat 05/27/2015 Ears/Nose/Throat/Neck No postnasal drip 05/27/2015 Ears/Nose/Throat/Neck No sinus congestion 05/27/2015 Cardiovascular No chest pain/pressure 05/27/2015 Cardiovascular No dyspnea 05/27/2015 Cardiovascular No edema 05/27/2015 Cardiovascular exercise intolerance 05/27/2015 Cardiovascular fatigue 0 05/27/2015 Cardiovascular No near-syncope/dizziness 05/27/2015 Respiratory No chest tightness 05/27/2015 Respiratory No cough Respiratory No dyspnea 0 05/27/2015 Respiratory No pedal edema 05/27/2015 Gastrointestinal No abdominal pain 05/27/2015 Gastrointestinal No constipation 05/27/2015 Gastrointestinal No diarrhea 05/27/2015 Gastrointestinal No gastroesophageal reflu x 05/27/2015 Gastrointestinal No nausea 05/27/2015 Gastrointestinal No vomiting 05/27/2015 Genitourinary/Nephrology No dysuria 05/27/2015 Genitourinary/Nephrology No nocturia 05/27/2015 Genitourinary/Nephrology No urinary incontinence 05/27/2015 Musculoskeletal No stiffness 05/27/2015 Musculoskeletal No swelling 05/27/2015 Musculoskeletal No muscle weakness 05/27/2015 Musculoskeletal No myalgias 05/27/2015 Dermatologic No rash Dermatologic No sores Dermatologic No scar Neurologic No dizziness 05/27/2015 Neurologic No headache 0 05/27/2015 Neurologic No neck pain 05/27/2015 Neurologic No syncope Psychiatric No anxiety 0 05/27/2015 Psychiatric No depression 05/27/2015 System Result Effective Dates Constitutional recent illness 09/21/2018 Constitutional No anorexia 09/21/2018 Constitutional No night sweats 09/21/2018 Constitutional No chills 09/21/2018 Constitutional No diaphoresis 09/21/2018 Constitutional fatigue 1 11/21/2017 Constitutional No fever 09/21/2018 Constitutional No insomnia 09/21/2018 Constitutional No malaise 09/21/2018 Constitutional No weight loss 09/21/2018 Constitutional No weight gain 09/21/2018 Eyes No eye erythema Eyes No eye discharge Ears/Nose/Throat/Neck No dizziness 09/21/2018 Ears/Nose/Throat/Neck No headache 09/21/2018 Ears/Nose/Throat/Neck No nasal discharge 09/21/2018 Ears/Nose/Throat/Neck hearing loss 09/21/2018 Cardiovascular No chest pain/pressure 09/21/2018 Respiratory No productive sputum 09/21/2018 Respiratory No cough Gastrointestinal No abdominal pain 09/21/2018 Gastrointestinal No constipation 09/21/2018 Gastrointestinal No diarrhea 09/21/2018 Genitourinary/Nephrology No dysuria 09/21/2018 Musculoskeletal muscle weakness 09/21/2018 Dermatologic No rash Neurologic No alteration of consciousness 09/21/2018 Psychiatric No depression 09/21/2018 Endocrine No dry or coarse skin 09/21/2018 Hematologic/Lymphatic No abnormal ec chymoses 09/21/2018 Constitutional No recent illness 02/02/2018 Constitutional No chills 02/02/2018 Constitutional No diaphoresis 02/02/2018 Constitutional No fever 02/02/2018 Eyes No eye erythema Ears/Nose/Throat/Neck No nasal discharge 02/02/2018 Cardiovascular No chest pain/pressure 02/02/2018 Cardiovascular No dyspnea 02/02/2018 Respiratory No cough Respiratory No dyspnea 0 02/02/2018 Neurologic No alteration of consciousness 02/02/2018 Neurologic No mental status change 02/02/2018 Constitutional No recent illness 01/17/2018 Constitutional No anorexia 01/17/2018 Constitutional No night sweats 01/17/2018 Constitutional No chills 01/17/2018 Constitutional No diaphoresis 01/17/2018 Constitutional No fever 01/17/2018 Eyes No blindness 2017 Ears/Nose/Throat/Neck hearing loss 01/17/2018 Ears/Nose/Throat/Neck No nasal allergies 01/17/2018 Ears/Nose/Throat/Neck No nasal discharge 01/17/2018 Cardiovascular No chest pain/pressure 01/17/2018 Cardiovascular No dyspnea 01/17/2018 Respiratory No cough Respiratory No dyspnea 0 01/17/2018 Gastrointestinal No constipation 01/17/2018 Gastrointestinal No diarrhea 01/17/2018 Genitourinary/Nephrology No dysuria 01/17/2018 Musculoskeletal No joint complaint 01/17/2018 Dermatologic rash 2017 Neurologic No alteration of consciousness 01/17/2018 Neurologic No mental status change 01/17/2018 Psychiatric No depression 01/17/2018 Constitutional No chills 09/20/2017 Constitutional No diaphoresis 09/20/2017 Constitutional No fever 09/20/2017 Eyes No blindness 2016 Ears/Nose/Throat/Neck hearing loss 09/20/2017 Ears/Nose/Throat/Neck No nasal allergies 09/20/2017 Ears/Nose/Throat/Neck No nasal discharge 09/20/2017 Cardiovascular No chest pain/pressure 09/20/2017 Cardiovascular No dyspnea 09/20/2017 Respiratory No cough Respiratory No dyspnea 1 11/20/2016 Gastrointestinal No constipation 09/20/2017 Gastrointestinal No diarrhea 09/20/2017 Genitourinary/Nephrology No dysuria 09/20/2017 Musculoskeletal No joint complaint 09/20/2017 Dermatologic rash 2016 Neurologic No alteration of consciousness 09/20/2017 Neurologic No mental status change 09/20/2017 Constitutional No recent illness 09/20/2017 Constitutional No anorexia 09/20/2017 Constitutional No night sweats 09/20/2017 Psychiatric No depression 09/20/2017 Constitutional No chills 05/17/2017 Constitutional No diaphoresis 05/17/2017 Constitutional No fever 05/17/2017 Eyes No blindness 2016 Ears/Nose/Throat/Neck No nasal allergies 05/17/2017 Ears/Nose/Throat/Neck No nasal discharge 05/17/2017 Cardiovascular No chest pain/pressure 05/17/2017 Cardiovascular No dyspnea 05/17/2017 Respiratory No cough 09/2017 Respiratory No dyspnea 0 05/17/2017 Gastrointestinal No constipation 05/17/2017 Gastrointestinal No diarrhea 05/17/2017 Genitourinary/Nephrology No dysuria 05/17/2017 Musculoskeletal No joint complaint 05/17/2017 Dermatologic rash 2016 Neurologic No alteration of consciousness 05/17/2017 Neurologic No mental status change 05/17/2017 Ears/Nose/Throat/Neck hearing loss 05/17/2017 Constitutional No chills 03/15/2017 Constitutional No diaphoresis 03/15/2017 Constitutional No fever 03/15/2017 Eyes No blindness 2016 Ears/Nose/Throat/Neck nasal allergies 03/15/2017 Ears/Nose/Throat/Neck nasal discharge 03/15/2017 Cardiovascular No chest pain/pressure 03/15/2017 Cardiovascular No dyspnea 03/15/2017 Respiratory cough 2016 Respiratory No dyspnea 0 03/15/2017 Gastrointestinal No constipation 03/15/2017 Gastrointestinal No diarrhea 03/15/2017 Genitourinary/Nephrology No dysuria 03/15/2017 Musculoskeletal No joint complaint 03/15/2017 Dermatologic No rash 07/2017 Neurologic No alteration of consciousness 03/15/2017 Neurologic No mental status change 03/15/2017 Constitutional No chills 02/15/2017 Constitutional No diaphoresis 02/15/2017 Constitutional No fever 02/15/2017 Eyes No blindness 2016 Ears/Nose/Throat/Neck No nasal allergies 02/15/2017 Ears/Nose/Throat/Neck No nasal discharge 02/15/2017 Cardiovascular No chest pain/pressure 02/15/2017 Cardiovascular No dyspnea 02/15/2017 Respiratory No cough 09/2017 Respiratory No dyspnea 0 02/15/2017 Neurologic No alteration of consciousness 02/15/2017 Neurologic No mental status change 02/15/2017 Gastrointestinal No constipation 02/15/2017 Gastrointestinal No diarrhea 02/15/2017 Genitourinary/Nephrology No dysuria 02/15/2017 Musculoskeletal No joint complaint 02/15/2017 Dermatologic No rash 09/2017 Constitutional No chills 01/27/2017 Constitutional No diaphoresis 01/27/2017 Constitutional No fever 01/27/2017 Eyes No eye erythema Ears/Nose/Throat/Neck No nasal allergies 01/27/2017 Ears/Nose/Throat/Neck No nasal discharge 01/27/2017 Cardiovascular No chest pain/pressure 01/27/2017 Cardiovascular No dyspnea 01/27/2017 Respiratory No cough Respiratory No dyspnea 0 01/27/2017 Neurologic No alteration of consciousness 01/27/2017 Neurologic No mental status change 01/27/2017 Constitutional recent illness 01/25/2017 Constitutional No anorexia 01/25/2017 Gastrointestinal No abdominal pain 01/25/2017 Gastrointestinal No constipation 01/25/2017 Gastrointestinal No diarrhea 01/25/2017 Constitutional No night sweats 01/25/2017 Constitutional No chills 01/25/2017 Constitutional No diaphoresis 01/25/2017 Constitutional fatigue 0 01/25/2017 Constitutional No fever 01/25/2017 Constitutional No insomnia 01/25/2017 Constitutional No malaise 01/25/2017 Constitutional No weight loss 01/25/2017 Constitutional No weight gain 01/25/2017 Eyes No eye erythema Eyes No eye discharge Respiratory cough 2016 Ears/Nose/Throat/Neck nasal allergies 01/25/2017 Ears/Nose/Throat/Neck nasal discharge 01/25/2017 Cardiovascular No chest pain/pressure 01/25/2017 Genitourinary/Nephrology No dysuria 01/25/2017 Musculoskeletal joint complaint 01/25/2017 Dermatologic No rash Neurologic No alteration of consciousness 01/25/2017 Constitutional recent illness 01/11/2017 Constitutional No anorexia 01/11/2017 Constitutional No night sweats 01/11/2017 Constitutional No chills 01/11/2017 Constitutional No diaphoresis 01/11/2017 Constitutional fatigue 0 01/11/2017 Constitutional No fever 01/11/2017 Constitutional No insomnia 01/11/2017 Constitutional No malaise 01/11/2017 Eyes No eye discharge Eyes No eye erythema 05/2017 Ears/Nose/Throat/Neck nasal allergies 01/11/2017 Ears/Nose/Throat/Neck nasal discharge 01/11/2017 Cardiovascular No chest pain/pressure 01/11/2017 Respiratory cough 2016 Gastrointestinal No abdominal pain 01/11/2017 Gastrointestinal No constipation 01/11/2017 Gastrointestinal No diarrhea 01/11/2017 Genitourinary/Nephrology No dysuria 01/11/2017 Musculoskeletal joint complaint 01/11/2017 Dermatologic No rash 05/2017 Neurologic No alteration of consciousness 01/11/2017 Constitutional No recent illness 10/12/2016 Constitutional No chills 10/12/2016 Constitutional fatigue 1 12/13/2015 Constitutional No fever 10/12/2016 Constitutional No insomnia 10/12/2016 Constitutional malaise 1 12/13/2015 Eyes No blindness 2015 Eyes No vision change Ears/Nose/Throat/Neck No dental pain 10/12/2016 Ears/Nose/Throat/Neck No dizziness 10/12/2016 Ears/Nose/Throat/Neck No dysphagia 10/12/2016 Ears/Nose/Throat/Neck No headache 10/12/2016 Ears/Nose/Throat/Neck No hearing loss 10/12/2016 Ears/Nose/Throat/Neck No nasal allergies 10/12/2016 Ears/Nose/Throat/Neck No sore throat 10/12/2016 Ears/Nose/Throat/Neck No postnasal drip 10/12/2016 Ears/Nose/Throat/Neck No sinus congestion 10/12/2016 Cardiovascular No chest pain/pressure 10/12/2016 Cardiovascular No dyspnea 10/12/2016 Cardiovascular No edema 10/12/2016 Cardiovascular fatigue 1 12/13/2015 Cardiovascular No near-syncope/dizziness 10/12/2016 Respiratory No chest tightness 10/12/2016 Respiratory No cough 04/2016 Respiratory No dyspnea 1 12/13/2015 Respiratory No pedal edema 10/12/2016 Gastrointestinal No abdominal pain 10/12/2016 Gastrointestinal No constipation 10/12/2016 Gastrointestinal No diarrhea 10/12/2016 Gastrointestinal No gastroesophageal reflu x 10/12/2016 Gastrointestinal No nausea 10/12/2016 Gastrointestinal No vomiting 10/12/2016 Genitourinary/Nephrology No dysuria 10/12/2016 Genitourinary/Nephrology No nocturia 10/12/2016 Genitourinary/Nephrology No urinary incontinence 10/12/2016 Musculoskeletal No stiffness 10/12/2016 Musculoskeletal No swelling 10/12/2016 Musculoskeletal No muscle weakness 10/12/2016 Musculoskeletal No myalgias 10/12/2016 Dermatologic No rash 04/2016 Dermatologic No sores Dermatologic No scar 04/2016 Neurologic No dizziness 10/12/2016 Neurologic No headache 1 12/13/2015 Neurologic No neck pain 10/12/2016 Neurologic No syncope Psychiatric No anxiety 1 12/13/2015 Psychiatric No depression 10/12/2016 Constitutional No recent illness 08/04/2016 Constitutional No chills 08/04/2016 Constitutional fatigue 0 08/04/2016 Constitutional No fever 08/04/2016 Constitutional No insomnia 08/04/2016 Constitutional malaise 0 08/04/2016 Eyes No blindness 2015 Eyes No vision change Ears/Nose/Throat/Neck No dental pain 08/04/2016 Ears/Nose/Throat/Neck No dizziness 08/04/2016 Ears/Nose/Throat/Neck No dysphagia 08/04/2016 Ears/Nose/Throat/Neck No headache 08/04/2016 Ears/Nose/Throat/Neck No hearing loss 08/04/2016 Ears/Nose/Throat/Neck No nasal allergies 08/04/2016 Ears/Nose/Throat/Neck No sore throat 08/04/2016 Ears/Nose/Throat/Neck No postnasal drip 08/04/2016 Ears/Nose/Throat/Neck No sinus congestion 08/04/2016 Cardiovascular No chest pain/pressure 08/04/2016 Cardiovascular No dyspnea 08/04/2016 Cardiovascular No edema 08/04/2016 Cardiovascular fatigue 0 08/04/2016 Cardiovascular No near-syncope/dizziness 08/04/2016 Respiratory No chest tightness 08/04/2016 Respiratory No cough Respiratory No dyspnea 0 08/04/2016 Respiratory No pedal edema 08/04/2016 Gastrointestinal No abdominal pain 08/04/2016 Gastrointestinal constipation 08/04/2016 Gastrointestinal No diarrhea 08/04/2016 Gastrointestinal No gastroesophageal reflu x 08/04/2016 Gastrointestinal No nausea 08/04/2016 Gastrointestinal No vomiting 08/04/2016 Genitourinary/Nephrology No dysuria 08/04/2016 Genitourinary/Nephrology No nocturia 08/04/2016 Genitourinary/Nephrology No urinary incontinence 08/04/2016 Musculoskeletal No stiffness 08/04/2016 Musculoskeletal No swelling 08/04/2016 Musculoskeletal No muscle weakness 08/04/2016 Musculoskeletal No myalgias 08/04/2016 Dermatologic No rash Dermatologic No sores Dermatologic No scar Neurologic No dizziness 08/04/2016 Neurologic No headache 0 08/04/2016 Neurologic No neck pain 08/04/2016 Neurologic No syncope Psychiatric No anxiety 0 08/04/2016 Psychiatric No depression 08/04/2016 Genitourinary/Nephrology testicular pain 08/04/2016 Constitutional No recent illness 06/07/2016 Constitutional No chills 06/07/2016 Constitutional fatigue 0 06/07/2016 Constitutional No fever 06/07/2016 Constitutional No insomnia 06/07/2016 Constitutional malaise 0 06/07/2016 Eyes No blindness 2015 Eyes No vision change Ears/Nose/Throat/Neck No dental pain 06/07/2016 Ears/Nose/Throat/Neck No dizziness 06/07/2016 Ears/Nose/Throat/Neck No dysphagia 06/07/2016 Ears/Nose/Throat/Neck No headache 06/07/2016 Ears/Nose/Throat/Neck No hearing loss 06/07/2016 Ears/Nose/Throat/Neck No nasal allergies 06/07/2016 Ears/Nose/Throat/Neck No sore throat 06/07/2016 Ears/Nose/Throat/Neck No postnasal drip 06/07/2016 Ears/Nose/Throat/Neck No sinus congestion 06/07/2016 Cardiovascular No chest pain/pressure 06/07/2016 Cardiovascular No dyspnea 06/07/2016 Cardiovascular No edema 06/07/2016 Cardiovascular fatigue 0 06/07/2016 Cardiovascular No near-syncope/dizziness 06/07/2016 Respiratory No chest tightness 06/07/2016 Respiratory No cough 11/2015 Respiratory No dyspnea 0 06/07/2016 Respiratory No pedal edema 06/07/2016 Gastrointestinal No abdominal pain 06/07/2016 Gastrointestinal No constipation 06/07/2016 Gastrointestinal No diarrhea 06/07/2016 Gastrointestinal No gastroesophageal reflu x 06/07/2016 Gastrointestinal No nausea 06/07/2016 Gastrointestinal No vomiting 06/07/2016 Genitourinary/Nephrology No dysuria 06/07/2016 Genitourinary/Nephrology No nocturia 06/07/2016 Genitourinary/Nephrology No urinary incontinence 06/07/2016 Musculoskeletal No stiffness 06/07/2016 Musculoskeletal No swelling 06/07/2016 Musculoskeletal No muscle weakness 06/07/2016 Musculoskeletal No myalgias 06/07/2016 Dermatologic No rash 11/2015 Dermatologic No sores Dermatologic No scar 11/2015 Neurologic No dizziness 06/07/2016 Neurologic No headache 0 06/07/2016 Neurologic No neck pain 06/07/2016 Neurologic No syncope Psychiatric No anxiety 0 06/07/2016 Psychiatric No depression 06/07/2016 Constitutional No recent illness 03/30/2016 Constitutional No chills 03/30/2016 Constitutional fatigue 0 03/30/2016 Constitutional No fever 03/30/2016 Constitutional No insomnia 03/30/2016 Constitutional malaise 0 03/30/2016 Eyes No blindness 2015 Eyes No vision change Ears/Nose/Throat/Neck No dental pain 03/30/2016 Ears/Nose/Throat/Neck No dizziness 03/30/2016 Ears/Nose/Throat/Neck No dysphagia 03/30/2016 Ears/Nose/Throat/Neck No headache 03/30/2016 Ears/Nose/Throat/Neck No hearing loss 03/30/2016 Ears/Nose/Throat/Neck No nasal allergies 03/30/2016 Ears/Nose/Throat/Neck No sore throat 03/30/2016 Ears/Nose/Throat/Neck No postnasal drip 03/30/2016 Ears/Nose/Throat/Neck No sinus congestion 03/30/2016 Cardiovascular No chest pain/pressure 03/30/2016 Cardiovascular No dyspnea 03/30/2016 Cardiovascular No edema 03/30/2016 Cardiovascular fatigue 0 03/30/2016 Cardiovascular No near-syncope/dizziness 03/30/2016 Respiratory No chest tightness 03/30/2016 Respiratory No cough Respiratory No dyspnea 0 03/30/2016 Respiratory No pedal edema 03/30/2016 Gastrointestinal No abdominal pain 03/30/2016 Gastrointestinal No constipation 03/30/2016 Gastrointestinal No diarrhea 03/30/2016 Gastrointestinal No gastroesophageal reflu x 03/30/2016 Gastrointestinal No nausea 03/30/2016 Gastrointestinal No vomiting 03/30/2016 Genitourinary/Nephrology No dysuria 03/30/2016 Genitourinary/Nephrology No nocturia 03/30/2016 Genitourinary/Nephrology No urinary incontinence 03/30/2016 Musculoskeletal No stiffness 03/30/2016 Musculoskeletal No swelling 03/30/2016 Musculoskeletal No muscle weakness 03/30/2016 Musculoskeletal No myalgias 03/30/2016 Dermatologic No rash Dermatologic No sores Dermatologic No scar Neurologic No dizziness 03/30/2016 Neurologic No headache 0 03/30/2016 Neurologic No neck pain 03/30/2016 Neurologic No syncope Psychiatric No anxiety 0 03/30/2016 Psychiatric No depression 03/30/2016 Constitutional No recent illness 09/30/2015 Constitutional No chills 09/30/2015 Constitutional fatigue 1 11/30/2014 Constitutional No fever 09/30/2015 Constitutional No insomnia 09/30/2015 Constitutional malaise 1 11/30/2014 Eyes No blindness 2014 Eyes No vision change Ears/Nose/Throat/Neck No dental pain 09/30/2015 Ears/Nose/Throat/Neck No dizziness 09/30/2015 Ears/Nose/Throat/Neck No dysphagia 09/30/2015 Ears/Nose/Throat/Neck No headache 09/30/2015 Ears/Nose/Throat/Neck No hearing loss 09/30/2015 Ears/Nose/Throat/Neck No nasal allergies 09/30/2015 Ears/Nose/Throat/Neck No sore throat 09/30/2015 Ears/Nose/Throat/Neck No postnasal drip 09/30/2015 Ears/Nose/Throat/Neck No sinus congestion 09/30/2015 Cardiovascular No chest pain/pressure 09/30/2015 Cardiovascular No dyspnea 09/30/2015 Cardiovascular No edema 09/30/2015 Cardiovascular exercise intolerance 09/30/2015 Cardiovascular fatigue 1 11/30/2014 Cardiovascular No near-syncope/dizziness 09/30/2015 Respiratory No chest tightness 09/30/2015 Respiratory No cough Respiratory No dyspnea 1 11/30/2014 Respiratory No pedal edema 09/30/2015 Gastrointestinal No abdominal pain 09/30/2015 Gastrointestinal No constipation 09/30/2015 Gastrointestinal No diarrhea 09/30/2015 Gastrointestinal No gastroesophageal reflu x 09/30/2015 Gastrointestinal No nausea 09/30/2015 Gastrointestinal No vomiting 09/30/2015 Genitourinary/Nephrology No dysuria 09/30/2015 Genitourinary/Nephrology No nocturia 09/30/2015 Genitourinary/Nephrology No urinary incontinence 09/30/2015 Musculoskeletal No stiffness 09/30/2015 Musculoskeletal No swelling 09/30/2015 Musculoskeletal No muscle weakness 09/30/2015 Musculoskeletal No myalgias 09/30/2015 Dermatologic No rash Dermatologic No sores Dermatologic No scar Neurologic No dizziness 09/30/2015 Neurologic No headache 1 11/30/2014 Neurologic No neck pain 09/30/2015 Neurologic No syncope Psychiatric No anxiety 1 11/30/2014 Psychiatric No depression 09/30/2015 Constitutional No recent illness 07/01/2015 Constitutional No chills 07/01/2015 Constitutional fatigue 0 07/01/2015 Constitutional No fever 07/01/2015 Constitutional No insomnia 07/01/2015 Constitutional malaise 0 07/01/2015 Eyes No blindness 2014 Eyes No vision change Ears/Nose/Throat/Neck No dental pain 07/01/2015 Ears/Nose/Throat/Neck No dizziness 07/01/2015 Ears/Nose/Throat/Neck No dysphagia 07/01/2015 Ears/Nose/Throat/Neck No headache 07/01/2015 Ears/Nose/Throat/Neck No hearing loss 07/01/2015 Ears/Nose/Throat/Neck No nasal allergies 07/01/2015 Ears/Nose/Throat/Neck No sore throat 07/01/2015 Ears/Nose/Throat/Neck No postnasal drip 07/01/2015 Ears/Nose/Throat/Neck No sinus congestion 07/01/2015 Cardiovascular No chest pain/pressure 07/01/2015 Cardiovascular No dyspnea 07/01/2015 Cardiovascular No edema 07/01/2015 Cardiovascular exercise intolerance 07/01/2015 Cardiovascular fatigue 0 07/01/2015 Cardiovascular No near-syncope/dizziness 07/01/2015 Respiratory No chest tightness 07/01/2015 Respiratory No cough Respiratory No dyspnea 0 07/01/2015 Respiratory No pedal edema 07/01/2015 Gastrointestinal No abdominal pain 07/01/2015 Gastrointestinal No constipation 07/01/2015 Gastrointestinal No diarrhea 07/01/2015 Gastrointestinal No gastroesophageal reflu x 07/01/2015 Gastrointestinal No nausea 07/01/2015 Gastrointestinal No vomiting 07/01/2015 Genitourinary/Nephrology No dysuria 07/01/2015 Genitourinary/Nephrology No nocturia 07/01/2015 Genitourinary/Nephrology No urinary incontinence 07/01/2015 Musculoskeletal No stiffness 07/01/2015 Musculoskeletal No swelling 07/01/2015 Musculoskeletal No muscle weakness 07/01/2015 Musculoskeletal No myalgias 07/01/2015 Dermatologic No rash Dermatologic No sores Dermatologic No scar Neurologic No dizziness 07/01/2015 Neurologic No headache 0 07/01/2015 Neurologic No neck pain 07/01/2015 Neurologic No syncope Psychiatric No anxiety 0 07/01/2015 Psychiatric No depression 07/01/2015 Constitutional No recent illness 05/27/2015 Constitutional No chills 05/27/2015 Constitutional fatigue 0 05/27/2015 Constitutional No fever 05/27/2015 Constitutional No insomnia 05/27/2015 Constitutional malaise 0 05/27/2015 Eyes No blindness 2014 Eyes No vision change Ears/Nose/Throat/Neck No dental pain 05/27/2015 Ears/Nose/Throat/Neck No dizziness 05/27/2015 Ears/Nose/Throat/Neck No dysphagia 05/27/2015 Ears/Nose/Throat/Neck No headache 05/27/2015 Ears/Nose/Throat/Neck No hearing loss 05/27/2015 Ears/Nose/Throat/Neck No nasal allergies 05/27/2015 Ears/Nose/Throat/Neck No sore throat 05/27/2015 Ears/Nose/Throat/Neck No postnasal drip 05/27/2015 Ears/Nose/Throat/Neck No sinus congestion 05/27/2015 Cardiovascular No chest pain/pressure 05/27/2015 Cardiovascular No dyspnea 05/27/2015 Cardiovascular No edema 05/27/2015 Cardiovascular exercise intolerance 05/27/2015 Cardiovascular fatigue 0 05/27/2015 Cardiovascular No near-syncope/dizziness 05/27/2015 Respiratory No chest tightness 05/27/2015 Respiratory No cough Respiratory No dyspnea 0 05/27/2015 Respiratory No pedal edema 05/27/2015 Gastrointestinal No abdominal pain 05/27/2015 Gastrointestinal No constipation 05/27/2015 Gastrointestinal No diarrhea 05/27/2015 Gastrointestinal No gastroesophageal reflu x 05/27/2015 Gastrointestinal No nausea 05/27/2015 Gastrointestinal No vomiting 05/27/2015 Genitourinary/Nephrology No dysuria 05/27/2015 Genitourinary/Nephrology No nocturia 05/27/2015 Genitourinary/Nephrology No urinary incontinence 05/27/2015 Musculoskeletal No stiffness 05/27/2015 Musculoskeletal No swelling 05/27/2015 Musculoskeletal No muscle weakness 05/27/2015 Musculoskeletal No myalgias 05/27/2015 Dermatologic No rash Dermatologic No sores Dermatologic No scar Neurologic No dizziness 05/27/2015 Neurologic No headache 0 05/27/2015 Neurologic No neck pain 05/27/2015 Neurologic No syncope Psychiatric No anxiety 0 05/27/2015 Psychiatric No depression 05/27/2015 System Result Effective Dates Constitutional No chills 03/15/2017 Constitutional No diaphoresis 03/15/2017 Constitutional No fever 03/15/2017 Eyes No blindness 2016 Ears/Nose/Throat/Neck nasal allergies 03/15/2017 Ears/Nose/Throat/Neck nasal discharge 03/15/2017 Cardiovascular No chest pain/pressure 03/15/2017 Cardiovascular No dyspnea 03/15/2017 Respiratory cough 2016 Respiratory No dyspnea 0 03/15/2017 Gastrointestinal No constipation 03/15/2017 Gastrointestinal No diarrhea 03/15/2017 Genitourinary/Nephrology No dysuria 03/15/2017 Musculoskeletal No joint complaint 03/15/2017 Dermatologic No rash 07/2017 Neurologic No alteration of consciousness 03/15/2017 Neurologic No mental status change 03/15/2017 Constitutional No chills 02/15/2017 Constitutional No diaphoresis 02/15/2017 Constitutional No fever 02/15/2017 Eyes No blindness 2016 Ears/Nose/Throat/Neck No nasal allergies 02/15/2017 Ears/Nose/Throat/Neck No nasal discharge 02/15/2017 Cardiovascular No chest pain/pressure 02/15/2017 Cardiovascular No dyspnea 02/15/2017 Respiratory No cough 09/2017 Respiratory No dyspnea 0 02/15/2017 Neurologic No alteration of consciousness 02/15/2017 Neurologic No mental status change 02/15/2017 Gastrointestinal No constipation 02/15/2017 Gastrointestinal No diarrhea 02/15/2017 Genitourinary/Nephrology No dysuria 02/15/2017 Musculoskeletal No joint complaint 02/15/2017 Dermatologic No rash 09/2017 Constitutional No chills 01/27/2017 Constitutional No diaphoresis 01/27/2017 Constitutional No fever 01/27/2017 Eyes No eye erythema Ears/Nose/Throat/Neck No nasal allergies 01/27/2017 Ears/Nose/Throat/Neck No nasal discharge 01/27/2017 Cardiovascular No chest pain/pressure 01/27/2017 Cardiovascular No dyspnea 01/27/2017 Respiratory No cough Respiratory No dyspnea 0 01/27/2017 Neurologic No alteration of consciousness 01/27/2017 Neurologic No mental status change 01/27/2017 Constitutional recent illness 01/25/2017 Constitutional No anorexia 01/25/2017 Gastrointestinal No abdominal pain 01/25/2017 Gastrointestinal No constipation 01/25/2017 Gastrointestinal No diarrhea 01/25/2017 Constitutional No night sweats 01/25/2017 Constitutional No chills 01/25/2017 Constitutional No diaphoresis 01/25/2017 Constitutional fatigue 0 01/25/2017 Constitutional No fever 01/25/2017 Constitutional No insomnia 01/25/2017 Constitutional No malaise 01/25/2017 Constitutional No weight loss 01/25/2017 Constitutional No weight gain 01/25/2017 Eyes No eye erythema Eyes No eye discharge Respiratory cough 2016 Ears/Nose/Throat/Neck nasal allergies 01/25/2017 Ears/Nose/Throat/Neck nasal discharge 01/25/2017 Cardiovascular No chest pain/pressure 01/25/2017 Genitourinary/Nephrology No dysuria 01/25/2017 Musculoskeletal joint complaint 01/25/2017 Dermatologic No rash Neurologic No alteration of consciousness 01/25/2017 Constitutional recent illness 01/11/2017 Constitutional No anorexia 01/11/2017 Constitutional No night sweats 01/11/2017 Constitutional No chills 01/11/2017 Constitutional No diaphoresis 01/11/2017 Constitutional fatigue 0 01/11/2017 Constitutional No fever 01/11/2017 Constitutional No insomnia 01/11/2017 Constitutional No malaise 01/11/2017 Eyes No eye discharge Eyes No eye erythema 05/2017 Ears/Nose/Throat/Neck nasal allergies 01/11/2017 Ears/Nose/Throat/Neck nasal discharge 01/11/2017 Cardiovascular No chest pain/pressure 01/11/2017 Respiratory cough 2016 Gastrointestinal No abdominal pain 01/11/2017 Gastrointestinal No constipation 01/11/2017 Gastrointestinal No diarrhea 01/11/2017 Genitourinary/Nephrology No dysuria 01/11/2017 Musculoskeletal joint complaint 01/11/2017 Dermatologic No rash 05/2017 Neurologic No alteration of consciousness 01/11/2017 Constitutional No recent illness 10/12/2016 Constitutional No chills 10/12/2016 Constitutional fatigue 1 12/13/2015 Constitutional No fever 10/12/2016 Constitutional No insomnia 10/12/2016 Constitutional malaise 1 12/13/2015 Eyes No blindness 2015 Eyes No vision change Ears/Nose/Throat/Neck No dental pain 10/12/2016 Ears/Nose/Throat/Neck No dizziness 10/12/2016 Ears/Nose/Throat/Neck No dysphagia 10/12/2016 Ears/Nose/Throat/Neck No headache 10/12/2016 Ears/Nose/Throat/Neck No hearing loss 10/12/2016 Ears/Nose/Throat/Neck No nasal allergies 10/12/2016 Ears/Nose/Throat/Neck No sore throat 10/12/2016 Ears/Nose/Throat/Neck No postnasal drip 10/12/2016 Ears/Nose/Throat/Neck No sinus congestion 10/12/2016 Cardiovascular No chest pain/pressure 10/12/2016 Cardiovascular No dyspnea 10/12/2016 Cardiovascular No edema 10/12/2016 Cardiovascular fatigue 1 12/13/2015 Cardiovascular No near-syncope/dizziness 10/12/2016 Respiratory No chest tightness 10/12/2016 Respiratory No cough 04/2016 Respiratory No dyspnea 1 12/13/2015 Respiratory No pedal edema 10/12/2016 Gastrointestinal No abdominal pain 10/12/2016 Gastrointestinal No constipation 10/12/2016 Gastrointestinal No diarrhea 10/12/2016 Gastrointestinal No gastroesophageal reflu x 10/12/2016 Gastrointestinal No nausea 10/12/2016 Gastrointestinal No vomiting 10/12/2016 Genitourinary/Nephrology No dysuria 10/12/2016 Genitourinary/Nephrology No nocturia 10/12/2016 Genitourinary/Nephrology No urinary incontinence 10/12/2016 Musculoskeletal No stiffness 10/12/2016 Musculoskeletal No swelling 10/12/2016 Musculoskeletal No muscle weakness 10/12/2016 Musculoskeletal No myalgias 10/12/2016 Dermatologic No rash 04/2016 Dermatologic No sores Dermatologic No scar 04/2016 Neurologic No dizziness 10/12/2016 Neurologic No headache 1 12/13/2015 Neurologic No neck pain 10/12/2016 Neurologic No syncope Psychiatric No anxiety 1 12/13/2015 Psychiatric No depression 10/12/2016 Constitutional No recent illness 08/04/2016 Constitutional No chills 08/04/2016 Constitutional fatigue 0 08/04/2016 Constitutional No fever 08/04/2016 Constitutional No insomnia 08/04/2016 Constitutional malaise 0 08/04/2016 Eyes No blindness 2015 Eyes No vision change Ears/Nose/Throat/Neck No dental pain 08/04/2016 Ears/Nose/Throat/Neck No dizziness 08/04/2016 Ears/Nose/Throat/Neck No dysphagia 08/04/2016 Ears/Nose/Throat/Neck No headache 08/04/2016 Ears/Nose/Throat/Neck No hearing loss 08/04/2016 Ears/Nose/Throat/Neck No nasal allergies 08/04/2016 Ears/Nose/Throat/Neck No sore throat 08/04/2016 Ears/Nose/Throat/Neck No postnasal drip 08/04/2016 Ears/Nose/Throat/Neck No sinus congestion 08/04/2016 Cardiovascular No chest pain/pressure 08/04/2016 Cardiovascular No dyspnea 08/04/2016 Cardiovascular No edema 08/04/2016 Cardiovascular fatigue 0 08/04/2016 Cardiovascular No near-syncope/dizziness 08/04/2016 Respiratory No chest tightness 08/04/2016 Respiratory No cough Respiratory No dyspnea 0 08/04/2016 Respiratory No pedal edema 08/04/2016 Gastrointestinal No abdominal pain 08/04/2016 Gastrointestinal constipation 08/04/2016 Gastrointestinal No diarrhea 08/04/2016 Gastrointestinal No gastroesophageal reflu x 08/04/2016 Gastrointestinal No nausea 08/04/2016 Gastrointestinal No vomiting 08/04/2016 Genitourinary/Nephrology No dysuria 08/04/2016 Genitourinary/Nephrology No nocturia 08/04/2016 Genitourinary/Nephrology No urinary incontinence 08/04/2016 Musculoskeletal No stiffness 08/04/2016 Musculoskeletal No swelling 08/04/2016 Musculoskeletal No muscle weakness 08/04/2016 Musculoskeletal No myalgias 08/04/2016 Dermatologic No rash Dermatologic No sores Dermatologic No scar Neurologic No dizziness 08/04/2016 Neurologic No headache 0 08/04/2016 Neurologic No neck pain 08/04/2016 Neurologic No syncope Psychiatric No anxiety 0 08/04/2016 Psychiatric No depression 08/04/2016 Genitourinary/Nephrology testicular pain 08/04/2016 Constitutional No recent illness 06/07/2016 Constitutional No chills 06/07/2016 Constitutional fatigue 0 06/07/2016 Constitutional No fever 06/07/2016 Constitutional No insomnia 06/07/2016 Constitutional malaise 0 06/07/2016 Eyes No blindness 2015 Eyes No vision change Ears/Nose/Throat/Neck No dental pain 06/07/2016 Ears/Nose/Throat/Neck No dizziness 06/07/2016 Ears/Nose/Throat/Neck No dysphagia 06/07/2016 Ears/Nose/Throat/Neck No headache 06/07/2016 Ears/Nose/Throat/Neck No hearing loss 06/07/2016 Ears/Nose/Throat/Neck No nasal allergies 06/07/2016 Ears/Nose/Throat/Neck No sore throat 06/07/2016 Ears/Nose/Throat/Neck No postnasal drip 06/07/2016 Ears/Nose/Throat/Neck No sinus congestion 06/07/2016 Cardiovascular No chest pain/pressure 06/07/2016 Cardiovascular No dyspnea 06/07/2016 Cardiovascular No edema 06/07/2016 Cardiovascular fatigue 0 06/07/2016 Cardiovascular No near-syncope/dizziness 06/07/2016 Respiratory No chest tightness 06/07/2016 Respiratory No cough 11/2015 Respiratory No dyspnea 0 06/07/2016 Respiratory No pedal edema 06/07/2016 Gastrointestinal No abdominal pain 06/07/2016 Gastrointestinal No constipation 06/07/2016 Gastrointestinal No diarrhea 06/07/2016 Gastrointestinal No gastroesophageal reflu x 06/07/2016 Gastrointestinal No nausea 06/07/2016 Gastrointestinal No vomiting 06/07/2016 Genitourinary/Nephrology No dysuria 06/07/2016 Genitourinary/Nephrology No nocturia 06/07/2016 Genitourinary/Nephrology No urinary incontinence 06/07/2016 Musculoskeletal No stiffness 06/07/2016 Musculoskeletal No swelling 06/07/2016 Musculoskeletal No muscle weakness 06/07/2016 Musculoskeletal No myalgias 06/07/2016 Dermatologic No rash 11/2015 Dermatologic No sores Dermatologic No scar 11/2015 Neurologic No dizziness 06/07/2016 Neurologic No headache 0 06/07/2016 Neurologic No neck pain 06/07/2016 Neurologic No syncope Psychiatric No anxiety 0 06/07/2016 Psychiatric No depression 06/07/2016 Constitutional No recent illness 03/30/2016 Constitutional No chills 03/30/2016 Constitutional fatigue 0 03/30/2016 Constitutional No fever 03/30/2016 Constitutional No insomnia 03/30/2016 Constitutional malaise 0 03/30/2016 Eyes No blindness 2015 Eyes No vision change Ears/Nose/Throat/Neck No dental pain 03/30/2016 Ears/Nose/Throat/Neck No dizziness 03/30/2016 Ears/Nose/Throat/Neck No dysphagia 03/30/2016 Ears/Nose/Throat/Neck No headache 03/30/2016 Ears/Nose/Throat/Neck No hearing loss 03/30/2016 Ears/Nose/Throat/Neck No nasal allergies 03/30/2016 Ears/Nose/Throat/Neck No sore throat 03/30/2016 Ears/Nose/Throat/Neck No postnasal drip 03/30/2016 Ears/Nose/Throat/Neck No sinus congestion 03/30/2016 Cardiovascular No chest pain/pressure 03/30/2016 Cardiovascular No dyspnea 03/30/2016 Cardiovascular No edema 03/30/2016 Cardiovascular fatigue 0 03/30/2016 Cardiovascular No near-syncope/dizziness 03/30/2016 Respiratory No chest tightness 03/30/2016 Respiratory No cough Respiratory No dyspnea 0 03/30/2016 Respiratory No pedal edema 03/30/2016 Gastrointestinal No abdominal pain 03/30/2016 Gastrointestinal No constipation 03/30/2016 Gastrointestinal No diarrhea 03/30/2016 Gastrointestinal No gastroesophageal reflu x 03/30/2016 Gastrointestinal No nausea 03/30/2016 Gastrointestinal No vomiting 03/30/2016 Genitourinary/Nephrology No dysuria 03/30/2016 Genitourinary/Nephrology No nocturia 03/30/2016 Genitourinary/Nephrology No urinary incontinence 03/30/2016 Musculoskeletal No stiffness 03/30/2016 Musculoskeletal No swelling 03/30/2016 Musculoskeletal No muscle weakness 03/30/2016 Musculoskeletal No myalgias 03/30/2016 Dermatologic No rash Dermatologic No sores Dermatologic No scar Neurologic No dizziness 03/30/2016 Neurologic No headache 0 03/30/2016 Neurologic No neck pain 03/30/2016 Neurologic No syncope Psychiatric No anxiety 0 03/30/2016 Psychiatric No depression 03/30/2016 Constitutional No recent illness 09/30/2015 Constitutional No chills 09/30/2015 Constitutional fatigue 1 11/30/2014 Constitutional No fever 09/30/2015 Constitutional No insomnia 09/30/2015 Constitutional malaise 1 11/30/2014 Eyes No blindness 2014 Eyes No vision change Ears/Nose/Throat/Neck No dental pain 09/30/2015 Ears/Nose/Throat/Neck No dizziness 09/30/2015 Ears/Nose/Throat/Neck No dysphagia 09/30/2015 Ears/Nose/Throat/Neck No headache 09/30/2015 Ears/Nose/Throat/Neck No hearing loss 09/30/2015 Ears/Nose/Throat/Neck No nasal allergies 09/30/2015 Ears/Nose/Throat/Neck No sore throat 09/30/2015 Ears/Nose/Throat/Neck No postnasal drip 09/30/2015 Ears/Nose/Throat/Neck No sinus congestion 09/30/2015 Cardiovascular No chest pain/pressure 09/30/2015 Cardiovascular No dyspnea 09/30/2015 Cardiovascular No edema 09/30/2015 Cardiovascular exercise intolerance 09/30/2015 Cardiovascular fatigue 1 11/30/2014 Cardiovascular No near-syncope/dizziness 09/30/2015 Respiratory No chest tightness 09/30/2015 Respiratory No cough Respiratory No dyspnea 1 11/30/2014 Respiratory No pedal edema 09/30/2015 Gastrointestinal No abdominal pain 09/30/2015 Gastrointestinal No constipation 09/30/2015 Gastrointestinal No diarrhea 09/30/2015 Gastrointestinal No gastroesophageal reflu x 09/30/2015 Gastrointestinal No nausea 09/30/2015 Gastrointestinal No vomiting 09/30/2015 Genitourinary/Nephrology No dysuria 09/30/2015 Genitourinary/Nephrology No nocturia 09/30/2015 Genitourinary/Nephrology No urinary incontinence 09/30/2015 Musculoskeletal No stiffness 09/30/2015 Musculoskeletal No swelling 09/30/2015 Musculoskeletal No muscle weakness 09/30/2015 Musculoskeletal No myalgias 09/30/2015 Dermatologic No rash Dermatologic No sores Dermatologic No scar Neurologic No dizziness 09/30/2015 Neurologic No headache 1 11/30/2014 Neurologic No neck pain 09/30/2015 Neurologic No syncope Psychiatric No anxiety 1 11/30/2014 Psychiatric No depression 09/30/2015 Constitutional No recent illness 07/01/2015 Constitutional No chills 07/01/2015 Constitutional fatigue 0 07/01/2015 Constitutional No fever 07/01/2015 Constitutional No insomnia 07/01/2015 Constitutional malaise 0 07/01/2015 Eyes No blindness 2014 Eyes No vision change Ears/Nose/Throat/Neck No dental pain 07/01/2015 Ears/Nose/Throat/Neck No dizziness 07/01/2015 Ears/Nose/Throat/Neck No dysphagia 07/01/2015 Ears/Nose/Throat/Neck No headache 07/01/2015 Ears/Nose/Throat/Neck No hearing loss 07/01/2015 Ears/Nose/Throat/Neck No nasal allergies 07/01/2015 Ears/Nose/Throat/Neck No sore throat 07/01/2015 Ears/Nose/Throat/Neck No postnasal drip 07/01/2015 Ears/Nose/Throat/Neck No sinus congestion 07/01/2015 Cardiovascular No chest pain/pressure 07/01/2015 Cardiovascular No dyspnea 07/01/2015 Cardiovascular No edema 07/01/2015 Cardiovascular exercise intolerance 07/01/2015 Cardiovascular fatigue 0 07/01/2015 Cardiovascular No near-syncope/dizziness 07/01/2015 Respiratory No chest tightness 07/01/2015 Respiratory No cough Respiratory No dyspnea 0 07/01/2015 Respiratory No pedal edema 07/01/2015 Gastrointestinal No abdominal pain 07/01/2015 Gastrointestinal No constipation 07/01/2015 Gastrointestinal No diarrhea 07/01/2015 Gastrointestinal No gastroesophageal reflu x 07/01/2015 Gastrointestinal No nausea 07/01/2015 Gastrointestinal No vomiting 07/01/2015 Genitourinary/Nephrology No dysuria 07/01/2015 Genitourinary/Nephrology No nocturia 07/01/2015 Genitourinary/Nephrology No urinary incontinence 07/01/2015 Musculoskeletal No stiffness 07/01/2015 Musculoskeletal No swelling 07/01/2015 Musculoskeletal No muscle weakness 07/01/2015 Musculoskeletal No myalgias 07/01/2015 Dermatologic No rash Dermatologic No sores Dermatologic No scar Neurologic No dizziness 07/01/2015 Neurologic No headache 0 07/01/2015 Neurologic No neck pain 07/01/2015 Neurologic No syncope Psychiatric No anxiety 0 07/01/2015 Psychiatric No depression 07/01/2015 Constitutional No recent illness 05/27/2015 Constitutional No chills 05/27/2015 Constitutional fatigue 0 05/27/2015 Constitutional No fever 05/27/2015 Constitutional No insomnia 05/27/2015 Constitutional malaise 0 05/27/2015 Eyes No blindness 2014 Eyes No vision change Ears/Nose/Throat/Neck No dental pain 05/27/2015 Ears/Nose/Throat/Neck No dizziness 05/27/2015 Ears/Nose/Throat/Neck No dysphagia 05/27/2015 Ears/Nose/Throat/Neck No headache 05/27/2015 Ears/Nose/Throat/Neck No hearing loss 05/27/2015 Ears/Nose/Throat/Neck No nasal allergies 05/27/2015 Ears/Nose/Throat/Neck No sore throat 05/27/2015 Ears/Nose/Throat/Neck No postnasal drip 05/27/2015 Ears/Nose/Throat/Neck No sinus congestion 05/27/2015 Cardiovascular No chest pain/pressure 05/27/2015 Cardiovascular No dyspnea 05/27/2015 Cardiovascular No edema 05/27/2015 Cardiovascular exercise intolerance 05/27/2015 Cardiovascular fatigue 0 05/27/2015 Cardiovascular No near-syncope/dizziness 05/27/2015 Respiratory No chest tightness 05/27/2015 Respiratory No cough Respiratory No dyspnea 0 05/27/2015 Respiratory No pedal edema 05/27/2015 Gastrointestinal No abdominal pain 05/27/2015 Gastrointestinal No constipation 05/27/2015 Gastrointestinal No diarrhea 05/27/2015 Gastrointestinal No gastroesophageal reflu x 05/27/2015 Gastrointestinal No nausea 05/27/2015 Gastrointestinal No vomiting 05/27/2015 Genitourinary/Nephrology No dysuria 05/27/2015 Genitourinary/Nephrology No nocturia 05/27/2015 Genitourinary/Nephrology No urinary incontinence 05/27/2015 Musculoskeletal No stiffness 05/27/2015 Musculoskeletal No swelling 05/27/2015 Musculoskeletal No muscle weakness 05/27/2015 Musculoskeletal No myalgias 05/27/2015 Dermatologic No rash Dermatologic No sores Dermatologic No scar Neurologic No dizziness 05/27/2015 Neurologic No headache 0 05/27/2015 Neurologic No neck pain 05/27/2015 Neurologic No syncope Psychiatric No anxiety 0 05/27/2015 Psychiatric No depression 05/27/2015 System Result Effective Dates Constitutional No chills 05/17/2017 Constitutional No diaphoresis 05/17/2017 Constitutional No fever 05/17/2017 Eyes No blindness 2016 Ears/Nose/Throat/Neck No nasal allergies 05/17/2017 Ears/Nose/Throat/Neck No nasal discharge 05/17/2017 Cardiovascular No chest pain/pressure 05/17/2017 Cardiovascular No dyspnea 05/17/2017 Respiratory No cough 09/2017 Respiratory No dyspnea 0 05/17/2017 Gastrointestinal No constipation 05/17/2017 Gastrointestinal No diarrhea 05/17/2017 Genitourinary/Nephrology No dysuria 05/17/2017 Musculoskeletal No joint complaint 05/17/2017 Dermatologic rash 2016 Neurologic No alteration of consciousness 05/17/2017 Neurologic No mental status change 05/17/2017 Ears/Nose/Throat/Neck hearing loss 05/17/2017 Constitutional No chills 03/15/2017 Constitutional No diaphoresis 03/15/2017 Constitutional No fever 03/15/2017 Eyes No blindness 2016 Ears/Nose/Throat/Neck nasal allergies 03/15/2017 Ears/Nose/Throat/Neck nasal discharge 03/15/2017 Cardiovascular No chest pain/pressure 03/15/2017 Cardiovascular No dyspnea 03/15/2017 Respiratory cough 2016 Respiratory No dyspnea 0 03/15/2017 Gastrointestinal No constipation 03/15/2017 Gastrointestinal No diarrhea 03/15/2017 Genitourinary/Nephrology No dysuria 03/15/2017 Musculoskeletal No joint complaint 03/15/2017 Dermatologic No rash 07/2017 Neurologic No alteration of consciousness 03/15/2017 Neurologic No mental status change 03/15/2017 Constitutional No chills 02/15/2017 Constitutional No diaphoresis 02/15/2017 Constitutional No fever 02/15/2017 Eyes No blindness 2016 Ears/Nose/Throat/Neck No nasal allergies 02/15/2017 Ears/Nose/Throat/Neck No nasal discharge 02/15/2017 Cardiovascular No chest pain/pressure 02/15/2017 Cardiovascular No dyspnea 02/15/2017 Respiratory No cough 09/2017 Respiratory No dyspnea 0 02/15/2017 Neurologic No alteration of consciousness 02/15/2017 Neurologic No mental status change 02/15/2017 Gastrointestinal No constipation 02/15/2017 Gastrointestinal No diarrhea 02/15/2017 Genitourinary/Nephrology No dysuria 02/15/2017 Musculoskeletal No joint complaint 02/15/2017 Dermatologic No rash 09/2017 Constitutional No chills 01/27/2017 Constitutional No diaphoresis 01/27/2017 Constitutional No fever 01/27/2017 Eyes No eye erythema Ears/Nose/Throat/Neck No nasal allergies 01/27/2017 Ears/Nose/Throat/Neck No nasal discharge 01/27/2017 Cardiovascular No chest pain/pressure 01/27/2017 Cardiovascular No dyspnea 01/27/2017 Respiratory No cough Respiratory No dyspnea 0 01/27/2017 Neurologic No alteration of consciousness 01/27/2017 Neurologic No mental status change 01/27/2017 Constitutional recent illness 01/25/2017 Constitutional No anorexia 01/25/2017 Gastrointestinal No abdominal pain 01/25/2017 Gastrointestinal No constipation 01/25/2017 Gastrointestinal No diarrhea 01/25/2017 Constitutional No night sweats 01/25/2017 Constitutional No chills 01/25/2017 Constitutional No diaphoresis 01/25/2017 Constitutional fatigue 0 01/25/2017 Constitutional No fever 01/25/2017 Constitutional No insomnia 01/25/2017 Constitutional No malaise 01/25/2017 Constitutional No weight loss 01/25/2017 Constitutional No weight gain 01/25/2017 Eyes No eye erythema Eyes No eye discharge Respiratory cough 2016 Ears/Nose/Throat/Neck nasal allergies 01/25/2017 Ears/Nose/Throat/Neck nasal discharge 01/25/2017 Cardiovascular No chest pain/pressure 01/25/2017 Genitourinary/Nephrology No dysuria 01/25/2017 Musculoskeletal joint complaint 01/25/2017 Dermatologic No rash Neurologic No alteration of consciousness 01/25/2017 Constitutional recent illness 01/11/2017 Constitutional No anorexia 01/11/2017 Constitutional No night sweats 01/11/2017 Constitutional No chills 01/11/2017 Constitutional No diaphoresis 01/11/2017 Constitutional fatigue 0 01/11/2017 Constitutional No fever 01/11/2017 Constitutional No insomnia 01/11/2017 Constitutional No malaise 01/11/2017 Eyes No eye discharge Eyes No eye erythema 05/2017 Ears/Nose/Throat/Neck nasal allergies 01/11/2017 Ears/Nose/Throat/Neck nasal discharge 01/11/2017 Cardiovascular No chest pain/pressure 01/11/2017 Respiratory cough 2016 Gastrointestinal No abdominal pain 01/11/2017 Gastrointestinal No constipation 01/11/2017 Gastrointestinal No diarrhea 01/11/2017 Genitourinary/Nephrology No dysuria 01/11/2017 Musculoskeletal joint complaint 01/11/2017 Dermatologic No rash 05/2017 Neurologic No alteration of consciousness 01/11/2017 Constitutional No recent illness 10/12/2016 Constitutional No chills 10/12/2016 Constitutional fatigue 1 12/13/2015 Constitutional No fever 10/12/2016 Constitutional No insomnia 10/12/2016 Constitutional malaise 1 12/13/2015 Eyes No blindness 2015 Eyes No vision change Ears/Nose/Throat/Neck No dental pain 10/12/2016 Ears/Nose/Throat/Neck No dizziness 10/12/2016 Ears/Nose/Throat/Neck No dysphagia 10/12/2016 Ears/Nose/Throat/Neck No headache 10/12/2016 Ears/Nose/Throat/Neck No hearing loss 10/12/2016 Ears/Nose/Throat/Neck No nasal allergies 10/12/2016 Ears/Nose/Throat/Neck No sore throat 10/12/2016 Ears/Nose/Throat/Neck No postnasal drip 10/12/2016 Ears/Nose/Throat/Neck No sinus congestion 10/12/2016 Cardiovascular No chest pain/pressure 10/12/2016 Cardiovascular No dyspnea 10/12/2016 Cardiovascular No edema 10/12/2016 Cardiovascular fatigue 1 12/13/2015 Cardiovascular No near-syncope/dizziness 10/12/2016 Respiratory No chest tightness 10/12/2016 Respiratory No cough 04/2016 Respiratory No dyspnea 1 12/13/2015 Respiratory No pedal edema 10/12/2016 Gastrointestinal No abdominal pain 10/12/2016 Gastrointestinal No constipation 10/12/2016 Gastrointestinal No diarrhea 10/12/2016 Gastrointestinal No gastroesophageal reflu x 10/12/2016 Gastrointestinal No nausea 10/12/2016 Gastrointestinal No vomiting 10/12/2016 Genitourinary/Nephrology No dysuria 10/12/2016 Genitourinary/Nephrology No nocturia 10/12/2016 Genitourinary/Nephrology No urinary incontinence 10/12/2016 Musculoskeletal No stiffness 10/12/2016 Musculoskeletal No swelling 10/12/2016 Musculoskeletal No muscle weakness 10/12/2016 Musculoskeletal No myalgias 10/12/2016 Dermatologic No rash 04/2016 Dermatologic No sores Dermatologic No scar 04/2016 Neurologic No dizziness 10/12/2016 Neurologic No headache 1 12/13/2015 Neurologic No neck pain 10/12/2016 Neurologic No syncope Psychiatric No anxiety 1 12/13/2015 Psychiatric No depression 10/12/2016 Constitutional No recent illness 08/04/2016 Constitutional No chills 08/04/2016 Constitutional fatigue 0 08/04/2016 Constitutional No fever 08/04/2016 Constitutional No insomnia 08/04/2016 Constitutional malaise 0 08/04/2016 Eyes No blindness 2015 Eyes No vision change Ears/Nose/Throat/Neck No dental pain 08/04/2016 Ears/Nose/Throat/Neck No dizziness 08/04/2016 Ears/Nose/Throat/Neck No dysphagia 08/04/2016 Ears/Nose/Throat/Neck No headache 08/04/2016 Ears/Nose/Throat/Neck No hearing loss 08/04/2016 Ears/Nose/Throat/Neck No nasal allergies 08/04/2016 Ears/Nose/Throat/Neck No sore throat 08/04/2016 Ears/Nose/Throat/Neck No postnasal drip 08/04/2016 Ears/Nose/Throat/Neck No sinus congestion 08/04/2016 Cardiovascular No chest pain/pressure 08/04/2016 Cardiovascular No dyspnea 08/04/2016 Cardiovascular No edema 08/04/2016 Cardiovascular fatigue 0 08/04/2016 Cardiovascular No near-syncope/dizziness 08/04/2016 Respiratory No chest tightness 08/04/2016 Respiratory No cough Respiratory No dyspnea 0 08/04/2016 Respiratory No pedal edema 08/04/2016 Gastrointestinal No abdominal pain 08/04/2016 Gastrointestinal constipation 08/04/2016 Gastrointestinal No diarrhea 08/04/2016 Gastrointestinal No gastroesophageal reflu x 08/04/2016 Gastrointestinal No nausea 08/04/2016 Gastrointestinal No vomiting 08/04/2016 Genitourinary/Nephrology No dysuria 08/04/2016 Genitourinary/Nephrology No nocturia 08/04/2016 Genitourinary/Nephrology No urinary incontinence 08/04/2016 Musculoskeletal No stiffness 08/04/2016 Musculoskeletal No swelling 08/04/2016 Musculoskeletal No muscle weakness 08/04/2016 Musculoskeletal No myalgias 08/04/2016 Dermatologic No rash Dermatologic No sores Dermatologic No scar Neurologic No dizziness 08/04/2016 Neurologic No headache 0 08/04/2016 Neurologic No neck pain 08/04/2016 Neurologic No syncope Psychiatric No anxiety 0 08/04/2016 Psychiatric No depression 08/04/2016 Genitourinary/Nephrology testicular pain 08/04/2016 Constitutional No recent illness 06/07/2016 Constitutional No chills 06/07/2016 Constitutional fatigue 0 06/07/2016 Constitutional No fever 06/07/2016 Constitutional No insomnia 06/07/2016 Constitutional malaise 0 06/07/2016 Eyes No blindness 2015 Eyes No vision change Ears/Nose/Throat/Neck No dental pain 06/07/2016 Ears/Nose/Throat/Neck No dizziness 06/07/2016 Ears/Nose/Throat/Neck No dysphagia 06/07/2016 Ears/Nose/Throat/Neck No headache 06/07/2016 Ears/Nose/Throat/Neck No hearing loss 06/07/2016 Ears/Nose/Throat/Neck No nasal allergies 06/07/2016 Ears/Nose/Throat/Neck No sore throat 06/07/2016 Ears/Nose/Throat/Neck No postnasal drip 06/07/2016 Ears/Nose/Throat/Neck No sinus congestion 06/07/2016 Cardiovascular No chest pain/pressure 06/07/2016 Cardiovascular No dyspnea 06/07/2016 Cardiovascular No edema 06/07/2016 Cardiovascular fatigue 0 06/07/2016 Cardiovascular No near-syncope/dizziness 06/07/2016 Respiratory No chest tightness 06/07/2016 Respiratory No cough 11/2015 Respiratory No dyspnea 0 06/07/2016 Respiratory No pedal edema 06/07/2016 Gastrointestinal No abdominal pain 06/07/2016 Gastrointestinal No constipation 06/07/2016 Gastrointestinal No diarrhea 06/07/2016 Gastrointestinal No gastroesophageal reflu x 06/07/2016 Gastrointestinal No nausea 06/07/2016 Gastrointestinal No vomiting 06/07/2016 Genitourinary/Nephrology No dysuria 06/07/2016 Genitourinary/Nephrology No nocturia 06/07/2016 Genitourinary/Nephrology No urinary incontinence 06/07/2016 Musculoskeletal No stiffness 06/07/2016 Musculoskeletal No swelling 06/07/2016 Musculoskeletal No muscle weakness 06/07/2016 Musculoskeletal No myalgias 06/07/2016 Dermatologic No rash 11/2015 Dermatologic No sores Dermatologic No scar 11/2015 Neurologic No dizziness 06/07/2016 Neurologic No headache 0 06/07/2016 Neurologic No neck pain 06/07/2016 Neurologic No syncope Psychiatric No anxiety 0 06/07/2016 Psychiatric No depression 06/07/2016 Constitutional No recent illness 03/30/2016 Constitutional No chills 03/30/2016 Constitutional fatigue 0 03/30/2016 Constitutional No fever 03/30/2016 Constitutional No insomnia 03/30/2016 Constitutional malaise 0 03/30/2016 Eyes No blindness 2015 Eyes No vision change Ears/Nose/Throat/Neck No dental pain 03/30/2016 Ears/Nose/Throat/Neck No dizziness 03/30/2016 Ears/Nose/Throat/Neck No dysphagia 03/30/2016 Ears/Nose/Throat/Neck No headache 03/30/2016 Ears/Nose/Throat/Neck No hearing loss 03/30/2016 Ears/Nose/Throat/Neck No nasal allergies 03/30/2016 Ears/Nose/Throat/Neck No sore throat 03/30/2016 Ears/Nose/Throat/Neck No postnasal drip 03/30/2016 Ears/Nose/Throat/Neck No sinus congestion 03/30/2016 Cardiovascular No chest pain/pressure 03/30/2016 Cardiovascular No dyspnea 03/30/2016 Cardiovascular No edema 03/30/2016 Cardiovascular fatigue 0 03/30/2016 Cardiovascular No near-syncope/dizziness 03/30/2016 Respiratory No chest tightness 03/30/2016 Respiratory No cough Respiratory No dyspnea 0 03/30/2016 Respiratory No pedal edema 03/30/2016 Gastrointestinal No abdominal pain 03/30/2016 Gastrointestinal No constipation 03/30/2016 Gastrointestinal No diarrhea 03/30/2016 Gastrointestinal No gastroesophageal reflu x 03/30/2016 Gastrointestinal No nausea 03/30/2016 Gastrointestinal No vomiting 03/30/2016 Genitourinary/Nephrology No dysuria 03/30/2016 Genitourinary/Nephrology No nocturia 03/30/2016 Genitourinary/Nephrology No urinary incontinence 03/30/2016 Musculoskeletal No stiffness 03/30/2016 Musculoskeletal No swelling 03/30/2016 Musculoskeletal No muscle weakness 03/30/2016 Musculoskeletal No myalgias 03/30/2016 Dermatologic No rash Dermatologic No sores Dermatologic No scar Neurologic No dizziness 03/30/2016 Neurologic No headache 0 03/30/2016 Neurologic No neck pain 03/30/2016 Neurologic No syncope Psychiatric No anxiety 0 03/30/2016 Psychiatric No depression 03/30/2016 Constitutional No recent illness 09/30/2015 Constitutional No chills 09/30/2015 Constitutional fatigue 1 11/30/2014 Constitutional No fever 09/30/2015 Constitutional No insomnia 09/30/2015 Constitutional malaise 1 11/30/2014 Eyes No blindness 2014 Eyes No vision change Ears/Nose/Throat/Neck No dental pain 09/30/2015 Ears/Nose/Throat/Neck No dizziness 09/30/2015 Ears/Nose/Throat/Neck No dysphagia 09/30/2015 Ears/Nose/Throat/Neck No headache 09/30/2015 Ears/Nose/Throat/Neck No hearing loss 09/30/2015 Ears/Nose/Throat/Neck No nasal allergies 09/30/2015 Ears/Nose/Throat/Neck No sore throat 09/30/2015 Ears/Nose/Throat/Neck No postnasal drip 09/30/2015 Ears/Nose/Throat/Neck No sinus congestion 09/30/2015 Cardiovascular No chest pain/pressure 09/30/2015 Cardiovascular No dyspnea 09/30/2015 Cardiovascular No edema 09/30/2015 Cardiovascular exercise intolerance 09/30/2015 Cardiovascular fatigue 1 11/30/2014 Cardiovascular No near-syncope/dizziness 09/30/2015 Respiratory No chest tightness 09/30/2015 Respiratory No cough Respiratory No dyspnea 1 11/30/2014 Respiratory No pedal edema 09/30/2015 Gastrointestinal No abdominal pain 09/30/2015 Gastrointestinal No constipation 09/30/2015 Gastrointestinal No diarrhea 09/30/2015 Gastrointestinal No gastroesophageal reflu x 09/30/2015 Gastrointestinal No nausea 09/30/2015 Gastrointestinal No vomiting 09/30/2015 Genitourinary/Nephrology No dysuria 09/30/2015 Genitourinary/Nephrology No nocturia 09/30/2015 Genitourinary/Nephrology No urinary incontinence 09/30/2015 Musculoskeletal No stiffness 09/30/2015 Musculoskeletal No swelling 09/30/2015 Musculoskeletal No muscle weakness 09/30/2015 Musculoskeletal No myalgias 09/30/2015 Dermatologic No rash Dermatologic No sores Dermatologic No scar Neurologic No dizziness 09/30/2015 Neurologic No headache 1 11/30/2014 Neurologic No neck pain 09/30/2015 Neurologic No syncope Psychiatric No anxiety 1 11/30/2014 Psychiatric No depression 09/30/2015 Constitutional No recent illness 07/01/2015 Constitutional No chills 07/01/2015 Constitutional fatigue 0 07/01/2015 Constitutional No fever 07/01/2015 Constitutional No insomnia 07/01/2015 Constitutional malaise 0 07/01/2015 Eyes No blindness 2014 Eyes No vision change Ears/Nose/Throat/Neck No dental pain 07/01/2015 Ears/Nose/Throat/Neck No dizziness 07/01/2015 Ears/Nose/Throat/Neck No dysphagia 07/01/2015 Ears/Nose/Throat/Neck No headache 07/01/2015 Ears/Nose/Throat/Neck No hearing loss 07/01/2015 Ears/Nose/Throat/Neck No nasal allergies 07/01/2015 Ears/Nose/Throat/Neck No sore throat 07/01/2015 Ears/Nose/Throat/Neck No postnasal drip 07/01/2015 Ears/Nose/Throat/Neck No sinus congestion 07/01/2015 Cardiovascular No chest pain/pressure 07/01/2015 Cardiovascular No dyspnea 07/01/2015 Cardiovascular No edema 07/01/2015 Cardiovascular exercise intolerance 07/01/2015 Cardiovascular fatigue 0 07/01/2015 Cardiovascular No near-syncope/dizziness 07/01/2015 Respiratory No chest tightness 07/01/2015 Respiratory No cough Respiratory No dyspnea 0 07/01/2015 Respiratory No pedal edema 07/01/2015 Gastrointestinal No abdominal pain 07/01/2015 Gastrointestinal No constipation 07/01/2015 Gastrointestinal No diarrhea 07/01/2015 Gastrointestinal No gastroesophageal reflu x 07/01/2015 Gastrointestinal No nausea 07/01/2015 Gastrointestinal No vomiting 07/01/2015 Genitourinary/Nephrology No dysuria 07/01/2015 Genitourinary/Nephrology No nocturia 07/01/2015 Genitourinary/Nephrology No urinary incontinence 07/01/2015 Musculoskeletal No stiffness 07/01/2015 Musculoskeletal No swelling 07/01/2015 Musculoskeletal No muscle weakness 07/01/2015 Musculoskeletal No myalgias 07/01/2015 Dermatologic No rash Dermatologic No sores Dermatologic No scar Neurologic No dizziness 07/01/2015 Neurologic No headache 0 07/01/2015 Neurologic No neck pain 07/01/2015 Neurologic No syncope Psychiatric No anxiety 0 07/01/2015 Psychiatric No depression 07/01/2015 Constitutional No recent illness 05/27/2015 Constitutional No chills 05/27/2015 Constitutional fatigue 0 05/27/2015 Constitutional No fever 05/27/2015 Constitutional No insomnia 05/27/2015 Constitutional malaise 0 05/27/2015 Eyes No blindness 2014 Eyes No vision change Ears/Nose/Throat/Neck No dental pain 05/27/2015 Ears/Nose/Throat/Neck No dizziness 05/27/2015 Ears/Nose/Throat/Neck No dysphagia 05/27/2015 Ears/Nose/Throat/Neck No headache 05/27/2015 Ears/Nose/Throat/Neck No hearing loss 05/27/2015 Ears/Nose/Throat/Neck No nasal allergies 05/27/2015 Ears/Nose/Throat/Neck No sore throat 05/27/2015 Ears/Nose/Throat/Neck No postnasal drip 05/27/2015 Ears/Nose/Throat/Neck No sinus congestion 05/27/2015 Cardiovascular No chest pain/pressure 05/27/2015 Cardiovascular No dyspnea 05/27/2015 Cardiovascular No edema 05/27/2015 Cardiovascular exercise intolerance 05/27/2015 Cardiovascular fatigue 0 05/27/2015 Cardiovascular No near-syncope/dizziness 05/27/2015 Respiratory No chest tightness 05/27/2015 Respiratory No cough Respiratory No dyspnea 0 05/27/2015 Respiratory No pedal edema 05/27/2015 Gastrointestinal No abdominal pain 05/27/2015 Gastrointestinal No constipation 05/27/2015 Gastrointestinal No diarrhea 05/27/2015 Gastrointestinal No gastroesophageal reflu x 05/27/2015 Gastrointestinal No nausea 05/27/2015 Gastrointestinal No vomiting 05/27/2015 Genitourinary/Nephrology No dysuria 05/27/2015 Genitourinary/Nephrology No nocturia 05/27/2015 Genitourinary/Nephrology No urinary incontinence 05/27/2015 Musculoskeletal No stiffness 05/27/2015 Musculoskeletal No swelling 05/27/2015 Musculoskeletal No muscle weakness 05/27/2015 Musculoskeletal No myalgias 05/27/2015 Dermatologic No rash Dermatologic No sores Dermatologic No scar Neurologic No dizziness 05/27/2015 Neurologic No headache 0 05/27/2015 Neurologic No neck pain 05/27/2015 Neurologic No syncope Psychiatric No anxiety 0 05/27/2015 Psychiatric No depression 05/27/2015 Physical Exam Exam Name System Name It em Name Status Result Effective Dates Notes Full Exam - General 1994 Constitutional general appearance Overall: well developed 02/02/2018 None Full Exam - General 1994 Constitutional general appearance Overall: in no acute distress 02/02/2018 None Full Exam - General 1994 Constitutional general appearance Overall: well nourished 02/02/2018 None Full Exam - General 1994 Eyes conjunctiva/eyelids Overall: conjunctiva clear 02/02/2018 None Full Exam - General 1994 Eyes conjunctiva/eyelids Overall: eyelids normal 02/02/2018 None Full Exam - General 1994 Ears/Nose/Throat lips/teeth/gingiva Overall: benign lips 02/02/2018 None [...] None Full Exam - General 1994 Eyes conjunctiva/eyelids Overall: conjunctiva clear 01/17/2018 None Full Exam - General 1994 Eyes conjunctiva/eyelids Overall: cornea clear 01/17/2018 None Full Exam - General 1994 Eyes conjunctiva/eyelids Overall: eyelids normal 01/17/2018 None Full Exam [...] skin Dermatitis: excoriation 01/17/2018 posterior neck, upper cathy k, bilateral arms - few scattered sores Full [...] None Full Exam - General 1994 Eyes conjunctiva/eyelids Overall: conjunctiva clear 09/20/2017 None Full Exam - General 1994 Eyes conjunctiva/eyelids Overall: cornea clear 09/20/2017 None Full Exam - General 1994 Eyes conjunctiva/eyelids Overall: eyelids normal 09/20/2017 None Full Exam [...] skin Dermatitis: excoriation 09/20/2017 posterior neck, lower cathy k at waist line, bilateral arms, left flank Full Exam - General 1994 Constitutional general appearance Development: well developed 05/17/2017 None Full Exam - General 1994 Constitutional general appearance Development: appears stated age 0705/17/2017 None Full Exam - General 1994 Constitutional general appearance Hygiene/Attention to Grooming: good hygiene 05/17/2017 None Full Exam - General 1994 Eyes conjunctiva/eyelids Overall: conjunctiva clear 05/17/2017 None Full Exam - General 1994 Eyes conjunctiva/eyelids Overall: cornea clear 05/17/2017 None Full Exam - General 1994 Eyes conjunctiva/eyelids Overall: eyelids normal 05/17/2017 None Full Exam [...] None Full Exam - General 1994 Eyes conjunctiva/eyelids Overall: conjunctiva clear 03/15/2017 None Full Exam - General 1994 Eyes conjunctiva/eyelids Overall: cornea clear 03/15/2017 None Full Exam - General 1994 Eyes conjunctiva/eyelids Overall: eyelids normal 03/15/2017 None Full Exam [...] None Full Exam - General 1994 Eyes conjunctiva/eyelids Overall: conjunctiva clear 02/15/2017 None Full Exam - General 1994 Eyes conjunctiva/eyelids Overall: cornea clear 02/15/2017 None Full Exam - General 1994 Eyes conjunctiva/eyelids Overall: eyelids normal 02/15/2017 None Full Exam [...] None Full Exam - General 1994 Eyes conjunctiva/eyelids Overall: conjunctiva clear 01/27/2017 None Full Exam - General 1994 Eyes conjunctiva/eyelids Overall: eyelids normal 01/27/2017 None Full Exam [...] None Full Exam - General 1994 Eyes conjunctiva/eyelids Overall: conjunctiva clear 01/25/2017 None Full Exam - General 1994 Eyes conjunctiva/eyelids Overall: cornea clear 01/25/2017 None Full Exam - General 1994 Eyes conjunctiva/eyelids Overall: eyelids normal 01/25/2017 None Full Exam [...] None Full Exam - General 1994 Eyes conjunctiva/eyelids Overall: conjunctiva clear 01/11/2017 None Full Exam - General 1994 Eyes conjunctiva/eyelids Overall: cornea clear 01/11/2017 None Full Exam - General 1994 Eyes conjunctiva/eyelids Overall: eyelids normal 01/11/2017 None Full Exam [...] None Full Exam - General 1994 Eyes conjunctiva/eyelids Overall: conjunctiva clear 10/12/2016 None Full Exam - General 1994 Eyes conjunctiva/eyelids Overall: cornea clear 10/12/2016 None Full Exam - General 1994 Eyes conjunctiva/eyelids Overall: eyelids normal 10/12/2016 None Full Exam [...] None Full Exam - General 1994 Eyes conjunctiva/eyelids Overall: conjunctiva clear 08/04/2016 None Full Exam - General 1994 Eyes conjunctiva/eyelids Overall: cornea clear 08/04/2016 None Full Exam - General 1994 Eyes conjunctiva/eyelids Overall: eyelids normal 08/04/2016 None Full Exam [...] None Full Exam - General 1994 Eyes conjunctiva/eyelids Overall: conjunctiva clear 06/07/2016 None Full Exam - General 1994 Eyes conjunctiva/eyelids Overall: cornea clear 06/07/2016 None Full Exam - General 1994 Eyes conjunctiva/eyelids Overall: eyelids normal 06/07/2016 None Full Exam [...] None Full Exam - General 1994 Eyes conjunctiva/eyelids Overall: conjunctiva clear 03/30/2016 None Full Exam - General 1994 Eyes conjunctiva/eyelids Overall: cornea clear 03/30/2016 None Full Exam - General 1994 Eyes conjunctiva/eyelids Overall: eyelids normal 03/30/2016 None Full Exam [...] None Full Exam - General 1994 Eyes conjunctiva/eyelids Overall: conjunctiva clear 09/30/2015 None Full Exam - General 1994 Eyes conjunctiva/eyelids Overall: cornea clear 09/30/2015 None Full Exam - General 1994 Eyes conjunctiva/eyelids Overall: eyelids normal 09/30/2015 None Full Exam [...] None Full Exam - General 1994 Eyes conjunctiva/eyelids Overall: conjunctiva clear 07/01/2015 None Full Exam - General 1994 Eyes conjunctiva/eyelids Overall: cornea clear 07/01/2015 None Full Exam - General 1994 Eyes conjunctiva/eyelids Overall: eyelids normal 07/01/2015 None Full Exam [...] None Full Exam - General 1994 Eyes conjunctiva/eyelids Overall: conjunctiva clear 05/27/2015 None Full Exam - General 1994 Eyes conjunctiva/eyelids Overall: cornea clear 05/27/2015 None Full Exam - General 1994 Eyes conjunctiva/eyelids Overall: eyelids normal 05/27/2015 None Full Exam [...] Overall: normal mood and affect 05/27/2015 None Exam Name System Name It em Name Status Result Effective Dates Notes Full Exam - General 1994 Constitutional general appearance Development: well developed 09/21/2018 None Full Exam - General 1994 Constitutional general appearance Development: appears stated age 1109/21/2018 None Full Exam - General 1994 Constitutional general appearance Hygiene/Attention to Grooming: good hygiene 09/21/2018 None Full Exam - General 1994 Eyes conjunctiva/eyelids Overall: conjunctiva clear 09/21/2018 None Full Exam - General 1994 Eyes conjunctiva/eyelids Overall: cornea clear 09/21/2018 None Full Exam - General 1994 Eyes conjunctiva/eyelids Overall: eyelids normal 09/21/2018 None Full Exam - General 1994 Eyes pupils and irises Overall: pupils equal, round, reactive to light and accomodation 09/21/2018 None Full Exam - General 1994 Ears/Nose/Throat otoscopic exam Overall: external auditory canals clear 09/21/2018 None Full Exam - General 1994 Ears/Nose/Throat otoscopic exam Overall: tympanic membranes clear 09/21/2018 None Full Exam - General 1994 Ears/Nose/Throat lips/teeth/gingiva Overall: benign lips 09/21/2018 None Full Exam - General 1994 Ears/Nose/Throat lips/teeth/gingiva Overall: normal dentition 09/21/2018 None Full Exam - General 1994 Ears/Nose/Throat oral cavity/pharynx/larynx Overall: oral mucosa clear 09/21/2018 None Full Exam - General 1994 Ears/Nose/Throat oral cavity/pharynx/larynx Overall: oropharyngeal mucosa clear 09/21/2018 None Full Exam - General 1994 Ears/Nose/Throat oral cavity/pharynx/larynx Overall: hypopharynx benign 09/21/2018 None Full Exam - General 1994 Ears/Nose/Throat oral cavity/pharynx/larynx Overall: no masses 09/21/2018 None Full Exam - General 1994 Respiratory auscultation Overall: breath sounds clear bilaterally 09/21/2018 None Full Exam - General 1994 Respiratory respiratory effort/rhythm Overall: no retractions 09/21/2018 None Full Exam - General 1994 Respiratory respiratory effort/rhythm Overall: normal rate 09/21/2018 None Full Exam - General 1994 Cardiovascular extremities Overall: no clubbing 09/21/2018 None Full Exam - General 1994 Cardiovascular auscultation of heart Overall: regular rate 09/21/2018 None Full Exam - General 1994 Cardiovascular auscultation of heart Overall: normal heart sounds 09/21/2018 None Full Exam - General 1994 Cardiovascular auscultation of heart Systolic murmur grade: II/ 09/21/2018 None Full Exam - General 1994 Abdomen abdominal exam Overall: no tenderness 09/21/2018 None Full Exam - General 1994 Abdomen abdominal exam Overall: normal bowel sounds 09/21/2018 None Full Exam - General 1994 Musculoskeletal spine, ribs and pelvis Overall: spine benign 09/21/2018 None Full Exam - General 1994 Musculoskeletal spine, ribs and pelvis Overall: sacroiliac joint benign 09/21/2018 None Full Exam - General 1994 Musculoskeletal spine, ribs and pelvis Overall: good posture 09/21/2018 None Full Exam - General 1994 Musculoskeletal head and neck Overall: head atraumatic 09/21/2018 None Full Exam - General 1994 Musculoskeletal head and neck Overall: cervical spine benign 09/21/2018 None Full Exam - General 1994 Neurologic deep tendon reflexes Overall: deep tendon reflexes intact 09/21/2018 None Full Exam - General 1994 Neurologic cranial nerves Overall: crainial nerves 2 - 12 grossly intact 09/21/2018 None Full Exam - General 1994 Psychiatric orientation/consciousness Overall: oriented to person, place and time 09/21/2018 None Full Exam - General 1994 Psychiatric mood and affect Overall: normal mood and affect 09/21/2018 None Full Exam - General 1994 Integument inspection of skin Overall: few scattered moles, no gross abnormalities 09/21/2018 None Full Exam - General 1994 Constitutional general appearance Overall: well developed 02/02/2018 None Full Exam - General 1994 Constitutional general appearance Overall: in no acute distress 02/02/2018 None Full Exam - General 1994 Constitutional general appearance Overall: well nourished 02/02/2018 None Full Exam - General 1994 Eyes conjunctiva/eyelids Overall: conjunctiva clear 02/02/2018 None Full Exam - General 1994 Eyes conjunctiva/eyelids Overall: eyelids normal 02/02/2018 None Full Exam - General 1994 Ears/Nose/Throat lips/teeth/gingiva Overall: benign lips 02/02/2018 None [...] None Full Exam - General 1994 Eyes conjunctiva/eyelids Overall: conjunctiva clear 01/17/2018 None Full Exam - General 1994 Eyes conjunctiva/eyelids Overall: cornea clear 01/17/2018 None Full Exam - General 1994 Eyes conjunctiva/eyelids Overall: eyelids normal 01/17/2018 None Full Exam [...] skin Dermatitis: excoriation 01/17/2018 posterior neck, upper cathy k, bilateral arms - few scattered sores Full [...] None Full Exam - General 1994 Eyes conjunctiva/eyelids Overall: conjunctiva clear 09/20/2017 None Full Exam - General 1994 Eyes conjunctiva/eyelids Overall: cornea clear 09/20/2017 None Full Exam - General 1994 Eyes conjunctiva/eyelids Overall: eyelids normal 09/20/2017 None Full Exam [...] skin Dermatitis: excoriation 09/20/2017 posterior neck, lower cathy k at waist line, bilateral arms, left flank Full Exam - General 1994 Constitutional general appearance Development: well developed 05/17/2017 None Full Exam - General 1994 Constitutional general appearance Development: appears stated age 0705/17/2017 None Full Exam - General 1994 Constitutional general appearance Hygiene/Attention to Grooming: good hygiene 05/17/2017 None Full Exam - General 1994 Eyes conjunctiva/eyelids Overall: conjunctiva clear 05/17/2017 None Full Exam - General 1994 Eyes conjunctiva/eyelids Overall: cornea clear 05/17/2017 None Full Exam - General 1994 Eyes conjunctiva/eyelids Overall: eyelids normal 05/17/2017 None Full Exam [...] None Full Exam - General 1994 Eyes conjunctiva/eyelids Overall: conjunctiva clear 03/15/2017 None Full Exam - General 1994 Eyes conjunctiva/eyelids Overall: cornea clear 03/15/2017 None Full Exam - General 1994 Eyes conjunctiva/eyelids Overall: eyelids normal 03/15/2017 None Full Exam [...] None Full Exam - General 1994 Eyes conjunctiva/eyelids Overall: conjunctiva clear 02/15/2017 None Full Exam - General 1994 Eyes conjunctiva/eyelids Overall: cornea clear 02/15/2017 None Full Exam - General 1994 Eyes conjunctiva/eyelids Overall: eyelids normal 02/15/2017 None Full Exam [...] None Full Exam - General 1994 Eyes conjunctiva/eyelids Overall: conjunctiva clear 01/27/2017 None Full Exam - General 1994 Eyes conjunctiva/eyelids Overall: eyelids normal 01/27/2017 None Full Exam [...] None Full Exam - General 1994 Eyes conjunctiva/eyelids Overall: conjunctiva clear 01/25/2017 None Full Exam - General 1994 Eyes conjunctiva/eyelids Overall: cornea clear 01/25/2017 None Full Exam - General 1994 Eyes conjunctiva/eyelids Overall: eyelids normal 01/25/2017 None Full Exam [...] None Full Exam - General 1994 Eyes conjunctiva/eyelids Overall: conjunctiva clear 01/11/2017 None Full Exam - General 1994 Eyes conjunctiva/eyelids Overall: cornea clear 01/11/2017 None Full Exam - General 1994 Eyes conjunctiva/eyelids Overall: eyelids normal 01/11/2017 None Full Exam [...] None Full Exam - General 1994 Eyes conjunctiva/eyelids Overall: conjunctiva clear 10/12/2016 None Full Exam - General 1994 Eyes conjunctiva/eyelids Overall: cornea clear 10/12/2016 None Full Exam - General 1994 Eyes conjunctiva/eyelids Overall: eyelids normal 10/12/2016 None Full Exam [...] None Full Exam - General 1994 Eyes conjunctiva/eyelids Overall: conjunctiva clear 08/04/2016 None Full Exam - General 1994 Eyes conjunctiva/eyelids Overall: cornea clear 08/04/2016 None Full Exam - General 1994 Eyes conjunctiva/eyelids Overall: eyelids normal 08/04/2016 None Full Exam [...] None Full Exam - General 1994 Eyes conjunctiva/eyelids Overall: conjunctiva clear 06/07/2016 None Full Exam - General 1994 Eyes conjunctiva/eyelids Overall: cornea clear 06/07/2016 None Full Exam - General 1994 Eyes conjunctiva/eyelids Overall: eyelids normal 06/07/2016 None Full Exam [...] None Full Exam - General 1994 Eyes conjunctiva/eyelids Overall: conjunctiva clear 03/30/2016 None Full Exam - General 1994 Eyes conjunctiva/eyelids Overall: cornea clear 03/30/2016 None Full Exam - General 1994 Eyes conjunctiva/eyelids Overall: eyelids normal 03/30/2016 None Full Exam [...] None Full Exam - General 1994 Eyes conjunctiva/eyelids Overall: conjunctiva clear 09/30/2015 None Full Exam - General 1994 Eyes conjunctiva/eyelids Overall: cornea clear 09/30/2015 None Full Exam - General 1994 Eyes conjunctiva/eyelids Overall: eyelids normal 09/30/2015 None Full Exam [...] None Full Exam - General 1994 Eyes conjunctiva/eyelids Overall: conjunctiva clear 07/01/2015 None Full Exam - General 1994 Eyes conjunctiva/eyelids Overall: cornea clear 07/01/2015 None Full Exam - General 1994 Eyes conjunctiva/eyelids Overall: eyelids normal 07/01/2015 None Full Exam [...] None Full Exam - General 1994 Eyes conjunctiva/eyelids Overall: conjunctiva clear 05/27/2015 None Full Exam - General 1994 Eyes conjunctiva/eyelids Overall: cornea clear 05/27/2015 None Full Exam - General 1994 Eyes conjunctiva/eyelids Overall: eyelids normal 05/27/2015 None Full Exam [...] Overall: normal mood and affect 05/27/2015 None Exam Name System Name It em Name Status Result Effective Dates Notes Full Exam - General 1994 Constitutional general appearance Development: well developed 03/15/2017 None Full Exam - General 1994 Constitutional general appearance Development: appears stated age 0503/15/2017 None Full Exam - General 1994 Constitutional general appearance Hygiene/Attention to Grooming: good hygiene 03/15/2017 None Full Exam - General 1994 Eyes conjunctiva/eyelids Overall: conjunctiva clear 03/15/2017 None Full Exam - General 1994 Eyes conjunctiva/eyelids Overall: cornea clear 03/15/2017 None Full Exam - General 1994 Eyes conjunctiva/eyelids Overall: eyelids normal 03/15/2017 None Full Exam [...] None Full Exam - General 1994 Eyes conjunctiva/eyelids Overall: conjunctiva clear 02/15/2017 None Full Exam - General 1994 Eyes conjunctiva/eyelids Overall: cornea clear 02/15/2017 None Full Exam - General 1994 Eyes conjunctiva/eyelids Overall: eyelids normal 02/15/2017 None Full Exam [...] None Full Exam - General 1994 Eyes conjunctiva/eyelids Overall: conjunctiva clear 01/27/2017 None Full Exam - General 1994 Eyes conjunctiva/eyelids Overall: eyelids normal 01/27/2017 None Full Exam [...] None Full Exam - General 1994 Eyes conjunctiva/eyelids Overall: conjunctiva clear 01/25/2017 None Full Exam - General 1994 Eyes conjunctiva/eyelids Overall: cornea clear 01/25/2017 None Full Exam - General 1994 Eyes conjunctiva/eyelids Overall: eyelids normal 01/25/2017 None Full Exam [...] None Full Exam - General 1994 Eyes conjunctiva/eyelids Overall: conjunctiva clear 01/11/2017 None Full Exam - General 1994 Eyes conjunctiva/eyelids Overall: cornea clear 01/11/2017 None Full Exam - General 1994 Eyes conjunctiva/eyelids Overall: eyelids normal 01/11/2017 None Full Exam [...] None Full Exam - General 1994 Eyes conjunctiva/eyelids Overall: conjunctiva clear 10/12/2016 None Full Exam - General 1994 Eyes conjunctiva/eyelids Overall: cornea clear 10/12/2016 None Full Exam - General 1994 Eyes conjunctiva/eyelids Overall: eyelids normal 10/12/2016 None Full Exam [...] None Full Exam - General 1994 Eyes conjunctiva/eyelids Overall: conjunctiva clear 08/04/2016 None Full Exam - General 1994 Eyes conjunctiva/eyelids Overall: cornea clear 08/04/2016 None Full Exam - General 1994 Eyes conjunctiva/eyelids Overall: eyelids normal 08/04/2016 None Full Exam [...] None Full Exam - General 1994 Eyes conjunctiva/eyelids Overall: conjunctiva clear 06/07/2016 None Full Exam - General 1994 Eyes conjunctiva/eyelids Overall: cornea clear 06/07/2016 None Full Exam - General 1994 Eyes conjunctiva/eyelids Overall: eyelids normal 06/07/2016 None Full Exam [...] None Full Exam - General 1994 Eyes conjunctiva/eyelids Overall: conjunctiva clear 03/30/2016 None Full Exam - General 1994 Eyes conjunctiva/eyelids Overall: cornea clear 03/30/2016 None Full Exam - General 1994 Eyes conjunctiva/eyelids Overall: eyelids normal 03/30/2016 None Full Exam [...] None Full Exam - General 1994 Eyes conjunctiva/eyelids Overall: conjunctiva clear 09/30/2015 None Full Exam - General 1994 Eyes conjunctiva/eyelids Overall: cornea clear 09/30/2015 None Full Exam - General 1994 Eyes conjunctiva/eyelids Overall: eyelids normal 09/30/2015 None Full Exam [...] None Full Exam - General 1994 Eyes conjunctiva/eyelids Overall: conjunctiva clear 07/01/2015 None Full Exam - General 1994 Eyes conjunctiva/eyelids Overall: cornea clear 07/01/2015 None Full Exam - General 1994 Eyes conjunctiva/eyelids Overall: eyelids normal 07/01/2015 None Full Exam [...] None Full Exam - General 1994 Eyes conjunctiva/eyelids Overall: conjunctiva clear 05/27/2015 None Full Exam - General 1994 Eyes conjunctiva/eyelids Overall: cornea clear 05/27/2015 None Full Exam - General 1994 Eyes conjunctiva/eyelids Overall: eyelids normal 05/27/2015 None Full Exam [...] Overall: normal mood and affect 05/27/2015 None Exam Name System Name It em Name Status Result Effective Dates Notes Full Exam - General 1994 Constitutional general appearance Development: well developed 05/17/2017 None Full Exam - General 1994 Constitutional general appearance Development: appears stated age 0705/17/2017 None Full Exam - General 1994 Constitutional general appearance Hygiene/Attention to Grooming: good hygiene 05/17/2017 None Full Exam - General 1994 Eyes conjunctiva/eyelids Overall: conjunctiva clear 05/17/2017 None Full Exam - General 1994 Eyes conjunctiva/eyelids Overall: cornea clear 05/17/2017 None Full Exam - General 1994 Eyes conjunctiva/eyelids Overall: eyelids normal 05/17/2017 None Full Exam [...] None Full Exam - General 1994 Eyes conjunctiva/eyelids Overall: conjunctiva clear 03/15/2017 None Full Exam - General 1994 Eyes conjunctiva/eyelids Overall: cornea clear 03/15/2017 None Full Exam - General 1994 Eyes conjunctiva/eyelids Overall: eyelids normal 03/15/2017 None Full Exam [...] None Full Exam - General 1994 Eyes conjunctiva/eyelids Overall: conjunctiva clear 02/15/2017 None Full Exam - General 1994 Eyes conjunctiva/eyelids Overall: cornea clear 02/15/2017 None Full Exam - General 1994 Eyes conjunctiva/eyelids Overall: eyelids normal 02/15/2017 None Full Exam [...] None Full Exam - General 1994 Eyes conjunctiva/eyelids Overall: conjunctiva clear 01/27/2017 None Full Exam - General 1994 Eyes conjunctiva/eyelids Overall: eyelids normal 01/27/2017 None Full Exam [...] None Full Exam - General 1994 Eyes conjunctiva/eyelids Overall: conjunctiva clear 01/25/2017 None Full Exam - General 1994 Eyes conjunctiva/eyelids Overall: cornea clear 01/25/2017 None Full Exam - General 1994 Eyes conjunctiva/eyelids Overall: eyelids normal 01/25/2017 None Full Exam [...] hygiene 01/11/2017 None Full Exam - General 1995 Eyes conjunctiva/eyelids Overall: conjunctiva clear 01/11/2017 None Full Exam - General 1994 Eyes conjunctiva/eyelids Overall: cornea clear 01/11/2017 None Full Exam - General 1994 Eyes conjunctiva/eyelids Overall: eyelids normal 01/11/2017 None Full Exam - General 1994 Eyes pupils and irises Overall: pupils equal, round, reactive to light and accomodation 01/11/2017 None Full Exam - General 1995 Ears/Nose/Throat otoscopic exam Overall: external auditory canals clear 01/11/2017 None Full Exam - General 1995 Ears/Nose/Throat otoscopic exam Overall: tympanic membranes clear 01/11/2017 None Full Exam - General 1995 Ears/Nose/Throat lips/teeth/gingiva Overall: benign lips 01/11/2017 None Full Exam - General 1995 Ears/Nose/Throat lips/teeth/gingiva Overall: normal dentition 01/11/2017 None Full Exam - General 1994 Ears/Nose/Throat oral cavity/pharynx/larynx Overall: oral mucosa clear 01/11/2017 None Full Exam - General 1995 Ears/Nose/Throat oral cavity/pharynx/larynx Overall: oropharyngeal mucosa clear 01/11/2017 None Full Exam - General 1995 Ears/Nose/Throat oral cavity/pharynx/larynx Overall: hypopharynx benign 01/11/2017 None Full Exam - General 1995 Ears/Nose/Throat oral cavity/pharynx/larynx Overall: no masses 01/11/2017 [...] None Full Exam - General 1994 Eyes conjunctiva/eyelids Overall: conjunctiva clear 10/12/2016 None Full Exam - General 1994 Eyes conjunctiva/eyelids Overall: cornea clear 10/12/2016 None Full Exam - General 1994 Eyes conjunctiva/eyelids Overall: eyelids normal 10/12/2016 None Full Exam [...] None Full Exam - General 1994 Eyes conjunctiva/eyelids Overall: conjunctiva clear 08/04/2016 None Full Exam - General 1994 Eyes conjunctiva/eyelids Overall: cornea clear 08/04/2016 None Full Exam - General 1994 Eyes conjunctiva/eyelids Overall: eyelids normal 08/04/2016 None Full Exam [...] None Full Exam - General 1994 Eyes conjunctiva/eyelids Overall: conjunctiva clear 06/07/2016 None Full Exam - General 1994 Eyes conjunctiva/eyelids Overall: cornea clear 06/07/2016 None Full Exam - General 1994 Eyes conjunctiva/eyelids Overall: eyelids normal 06/07/2016 None Full Exam [...] None Full Exam - General 1994 Eyes conjunctiva/eyelids Overall: conjunctiva clear 03/30/2016 None Full Exam - General 1994 Eyes conjunctiva/eyelids Overall: cornea clear 03/30/2016 None Full Exam - General 1994 Eyes conjunctiva/eyelids Overall: eyelids normal 03/30/2016 None Full Exam [...] None Full Exam - General 1994 Eyes conjunctiva/eyelids Overall: conjunctiva clear 09/30/2015 None Full Exam - General 1994 Eyes conjunctiva/eyelids Overall: cornea clear 09/30/2015 None Full Exam - General 1994 Eyes conjunctiva/eyelids Overall: eyelids normal 09/30/2015 None Full Exam [...] None Full Exam - General 1994 Eyes conjunctiva/eyelids Overall: conjunctiva clear 07/01/2015 None Full Exam - General 1994 Eyes conjunctiva/eyelids Overall: cornea clear 07/01/2015 None Full Exam - General 1994 Eyes conjunctiva/eyelids Overall: eyelids normal 07/01/2015 None Full Exam [...] None Full Exam - General 1994 Eyes conjunctiva/eyelids Overall: conjunctiva clear 05/27/2015 None Full Exam - General 1994 Eyes conjunctiva/eyelids Overall: cornea clear 05/27/2015 None Full Exam - General 1994 Eyes conjunctiva/eyelids Overall: eyelids normal 05/27/2015 None Full Exam [...] Overall: normal mood and affect 05/27/2015 None History of Present Illness Symptom Name Status Resu lt Effective Date Notes Annual Medicare Wellness Exam Alcohol Use does not drink any alcohol 02/02/2018 None Annual Medicare Wellness Exam Aspirin Use yes 02/02/2018 None Annual Medicare Wellness Exam Blood Glucose (self reported) don't know 02/02/2018 No ne Annual Medicare Wellness Exam Blood Pressure (self reported) borderline (120/80 - 139/89) 018 None Annual Medicare Wellness Exam Choles terol (self reported) don't know 02/02/2018 No ne Annual Medicare Wellness Exam Depres heather (last 6 months) almost never 02/02/2018 None Annual Medicare Wellness Exam Depres heather or Hopelessness almost never 02/02/2018 None Annual Medicare Wellness Exam Descri be Your Health good 02/02/2018 None Annual Medicare Wellness Exam Exerci se Habits does not exercise 02/02/2018 None Annual Medicare Wellness Exam Handli ng Stress usually malu effectively 02/02/2018 None Annual Medicare Wellness Exam Hemagl obin A-1C (self reported) don't know 02/02/2018 No ne Annual Medicare Wellness Exam Hours of Sleep 10 02/02/2018 None Annual Medicare Wellness Exam Intera ction with Friends no 02/02/2018 None Annual Medicare Wellness Exam Intere sts & Pleasure most of the time 02/02/2018 None Annual Medicare Wellness Exam Life S atisfaction very satisfied 02/02/2018 None Annual Medicare Wellness Exam Motor Vehicle Safety always fastens seat belt: y 02/03/20 18 None Annual Medicare Wellness Exam Motor Vehicle Safety drives after drinking: n 02/02/2018 None Annual Medicare Wellness Exam Motor Vehicle Safety rides with someone who has been drinking: n 02/02/2018 None Annual Medicare Wellness Exam Nutrition servings of fried food / high fat foods per day: 0 02/02/2018 None Annual Medicare Wellness Exam Nutrition servings of high fiber / whole grain per day: 2 02/02/2018 None Annual Medicare Wellness Exam Nutrition servings of vegetables / fruit per day: 2 02/02/2018 None Annual Medicare Wellness Exam Smokin g and Tobacco Use non smoker 02/02/2018 No ne Annual Medicare Wellness Exam Social & Emotional [...] Findings Denies nausea 01/17/2018 None hypertension Quality kevin wil hypertension 01/17/2018 None hypertension Onset and Resolution ongoing 01/17/2018 None hypertension Onset of Symptom during adulthood 01/17/2018 None hypertension Blood Pressure Values pt checking blood pressure - see scanned document 01/17/2018 None hypertension Alleviating Factors medication 01/17/2018 None hypertension Pertinent Findings Denies dizziness 01/17/2018 None hypertension Pertinent Findings Denies dyspnea 01/17/2018 None hypertension Pertinent Findings Denies edema 01/17/2018 None cough Location in the th roat 01/17/2018 None cough Quality acute 01/17/2018 None cough Onset and Resolution sudden in [...] Findings Denies edema 09/20/2017 None hypertension Quality kevin wil hypertension 09/20/2017 None pruritus Location-Major on the [...] months ago 09/20/2017 None pruritus Triggers no kno wn triggers 09/20/2017 None pruritus Prior Treatments unresponsive to treatment 09/20/2017 None hypertension Blood Pressure Values pt checking blood pressure - see scanned document 09/20/2017 None diabetes mellitus Test results Pt checking blood glucose at home, see scanned readings 09/20/2017 None diabetes mellitus Glucose monitoring fasting 09/20/2017 [...] Findings vomiting 05/17/2017 None rash Location-Major on t he upper body 05/17/2017 None rash Location-Major on t he arms 05/17/2017 None rash Location-Extremities on both elbows 05/17/2017 None rash Quality acute 05/17/2017 None rash Pertinent Findings itching 05/17/2017 None [...] Pertinent Findings vomiting 03/15/2017 None diarrhea Quality intermi ttent 03/15/2017 None diarrhea Quality loose 03/15/2017 None [...] Annual Medicare Wellness Exam Blood Pressure (self reported) borderline (120/80 - 139/89) 017 None Annual Medicare Wellness Exam Choles terol (self reported) don't know 01/27/2017 No ne Annual Medicare Wellness Exam Depres heather (last 6 months) almost never 01/27/2017 None Annual Medicare Wellness Exam Depres heather or Hopelessness almost never 01/27/2017 None Annual Medicare Wellness Exam Descri be Your Health good 01/27/2017 None Annual Medicare Wellness Exam Exerci se Habits does not exercise 01/27/2017 None Annual Medicare Wellness Exam Handli ng Stress usually malu effectively 01/27/2017 None Annual Medicare Wellness Exam Hemagl obin A-1C (self reported) don't know 01/27/2017 No ne Annual Medicare Wellness Exam Hours of Sleep 10 01/27/2017 None Annual Medicare Wellness Exam Intera ction with Friends yes 01/27/2017 None Annual Medicare Wellness Exam Intere sts & Pleasure almost all of the time 01/27/2017 None Annual Medicare Wellness Exam Life S atisfaction satisfied 01/27/2017 Non e Annual Medicare Wellness Exam Motor Vehicle Safety always fastens seat belt: y 01/28/20 17 None Annual Medicare Wellness Exam Motor Vehicle Safety drives after drinking: n 01/27/2017 None Annual Medicare Wellness Exam Motor Vehicle Safety rides with someone who has been drinking: n 01/27/2017 None Annual Medicare Wellness Exam Nutrition servings of fried food / high fat foods per day: 0 01/27/2017 None Annual Medicare Wellness Exam Nutrition servings of high fiber / whole grain per day: 2 01/27/2017 None Annual Medicare Wellness Exam Nutrition servings of vegetables / fruit per day: 2 01/27/2017 None Annual Medicare Wellness Exam Smokin g and Tobacco Use non smoker 01/27/2017 No ne Annual Medicare Wellness Exam Social & Emotional [...] clinic 01/25/2017 None Hospital Follow Up _ Oth er: hypoglycemia 01/25/2017 None Hospital Follow Up Quality [...] Findings Denies nausea 01/11/2017 None cough Quality intermitte nt 01/11/2017 None cough Quality productive 01/11/2017 None cough Onset of Symptom 1 -2 weeks ago 01/11/2017 None cough Pertinent Findings sputum production 01/11/2017 (whitish) cough Pertinent Findings Denies chills 01/11/2017 None diabetes mellitus Test results Pt checking blood glucose readings, did not bring results to clinic 01/11/2017 None diabetes mellitus Glucose monitoring occasional glucose testing 01/11/2017 (every other day) cough Quality acute 01/11/2017 None hypertension Onset and Resolution ongoing 01/11/2017 [...] Quality acute 08/04/2016 None hip pain Quality intermi ttent 08/04/2016 None hip pain Onset and Resolution sudden in onset 08/04/2016 None hip pain Onset of Symptom 1.5+ months ago 08/04/2016 None hip pain Mechanism of injury ground level fall 08/04/2016 None shoulder pain Location o n the right shoulder 08/04/2016 None shoulder pain Quality ac [place] 08/04/2016 None shoulder pain Quality in termittent 08/04/2016 None shoulder pain Onset and Resolution [...] diarrhea Quality acute 06/07/2016 None diarrhea Quality intermi ttent 06/07/2016 None diarrhea Quality loose 06/07/2016 None diarrhea Alleviating Factors medication 06/07/2016 None hypertension Quality int ermittent 03/30/2016 None hypertension Onset and Resolution ongoing 03/30/2016 None hypertension Blood Pressure Values patient checking blood pressure at home - did not bring in readings 03/30/2016 None hypertension Severity mi ld 03/30/2016 None hypertension Pertinent Findings Denies dizziness 03/30/2016 None hypertension Pertinent Findings Denies dyspnea 03/30/2016 None diabetes mellitus Onset of Symptom onset as an adult 03/30/2016 None diabetes mellitus Quality NIDDM 03/30/2016 None diabetes mellitus Severity mild 03/30/2016 None diabetes mellitus Pertinent Findings Denies dizziness 03/30/2016 None diabetes mellitus Pertinent Findings Denies dyspnea 03/30/2016 None hypertension Quality int ermittent 09/30/2015 None hypertension Onset and Resolution ongoing 09/30/2015 None hypertension Severity mi ld 09/30/2015 None hypertension Pertinent Findings Denies dizziness [...] 120 09/30/2015 86 this am hypertension Quality int ermittent 07/01/2015 None diabetes mellitus Quality NIDDM 07/01/2015 [...] and Resolution ongoing 07/01/2015 None hypertension Severity mi ld 07/01/2015 None diabetes mellitus Onset of Symptom [...] None diabetes mellitus Severity mild 05/27/2015 None Symptom Name Status Resu lt Effective Date Notes Hospital Follow Up _ pne umonia 09/21/2018 and weakness Hospital Follow Up Quality acute illness 09/21/2018 None Hospital Follow Up Quality improving 09/21/2018 None Hospital Follow Up Alleviating Factors medication 09/21/2018 None Hospital Follow Up Onset and Resolution resolved 09/21/2018 None Hospital Follow Up Severity moderate 09/21/2018 None Hospital Follow Up Significant Medic al Conditions acute illness 09/21/2018 pneumonia, sepsis Hospital Follow Up Pertinent Findings Denies pain 09/21/2018 None Hospital Follow Up Pertinent Findings Denies fever 09/21/2018 None Annual Medicare Wellness Exam Alcohol Use does not drink any alcohol 02/02/2018 None Annual Medicare Wellness Exam Aspirin Use yes 02/02/2018 None Annual Medicare Wellness Exam Blood Glucose (self reported) don't know 02/02/2018 No ne Annual Medicare Wellness Exam Blood Pressure (self reported) borderline (120/80 - 139/89) 018 None Annual Medicare Wellness Exam Choles terol (self reported) don't know 02/02/2018 No ne Annual Medicare Wellness Exam Depres heather (last 6 months) almost never 02/02/2018 None Annual Medicare Wellness Exam Depres heather or Hopelessness almost never 02/02/2018 None Annual Medicare Wellness Exam Descri be Your Health good 02/02/2018 None Annual Medicare Wellness Exam Exerci se Habits does not exercise 02/02/2018 None Annual Medicare Wellness Exam Handli ng Stress usually malu effectively 02/02/2018 None Annual Medicare Wellness Exam Hemagl obin A-1C (self reported) don't know 02/02/2018 No ne Annual Medicare Wellness Exam Hours of Sleep 10 02/02/2018 None Annual Medicare Wellness Exam Intera ction with Friends no 02/02/2018 None Annual Medicare Wellness Exam Intere sts & Pleasure most of the time 02/02/2018 None Annual Medicare Wellness Exam Life S atisfaction very satisfied 02/02/2018 None Annual Medicare Wellness Exam Motor Vehicle Safety always fastens seat belt: y 02/03/20 18 None Annual Medicare Wellness Exam Motor Vehicle Safety drives after drinking: n 02/02/2018 None Annual Medicare Wellness Exam Motor Vehicle Safety rides with someone who has been drinking: n 02/02/2018 None Annual Medicare Wellness Exam Nutrition servings of fried food / high fat foods per day: 0 02/02/2018 None Annual Medicare Wellness Exam Nutrition servings of high fiber / whole grain per day: 2 02/02/2018 None Annual Medicare Wellness Exam Nutrition servings of vegetables / fruit per day: 2 02/02/2018 None Annual Medicare Wellness Exam Smokin g and Tobacco Use non smoker 02/02/2018 No ne Annual Medicare Wellness Exam Social & Emotional [...] Findings Denies nausea 01/17/2018 None hypertension Quality kevin wil hypertension 01/17/2018 None hypertension Onset and Resolution ongoing 01/17/2018 None hypertension Onset of Symptom during adulthood 01/17/2018 None hypertension Blood Pressure Values pt checking blood pressure - see scanned document 01/17/2018 None hypertension Alleviating Factors medication 01/17/2018 None hypertension Pertinent Findings Denies dizziness 01/17/2018 None hypertension Pertinent Findings Denies dyspnea 01/17/2018 None hypertension Pertinent Findings Denies edema 01/17/2018 None cough Location in the th roat 01/17/2018 None cough Quality acute 01/17/2018 None cough Onset and Resolution sudden in [...] Findings Denies edema 09/20/2017 None hypertension Quality kevin wil hypertension 09/20/2017 None pruritus Location-Major on the [...] months ago 09/20/2017 None pruritus Triggers no kno wn triggers 09/20/2017 None pruritus Prior Treatments unresponsive to treatment 09/20/2017 None hypertension Blood Pressure Values pt checking blood pressure - see scanned document 09/20/2017 None diabetes mellitus Test results Pt checking blood glucose at home, see scanned readings 09/20/2017 None diabetes mellitus Glucose monitoring fasting 09/20/2017 [...] Findings vomiting 05/17/2017 None rash Location-Major on t he upper body 05/17/2017 None rash Location-Major on t he arms 05/17/2017 None rash Location-Extremities on both elbows 05/17/2017 None rash Quality acute 05/17/2017 None rash Pertinent Findings itching 05/17/2017 None [...] Pertinent Findings vomiting 03/15/2017 None diarrhea Quality intermi ttent 03/15/2017 None diarrhea Quality loose 03/15/2017 None [...] Annual Medicare Wellness Exam Blood Pressure (self reported) borderline (120/80 - 139/89) 017 None Annual Medicare Wellness Exam Choles terol (self reported) don't know 01/27/2017 No ne Annual Medicare Wellness Exam Depres heather (last 6 months) almost never 01/27/2017 None Annual Medicare Wellness Exam Depres heather or Hopelessness almost never 01/27/2017 None Annual Medicare Wellness Exam Descri be Your Health good 01/27/2017 None Annual Medicare Wellness Exam Exerci se Habits does not exercise 01/27/2017 None Annual Medicare Wellness Exam Handli ng Stress usually malu effectively 01/27/2017 None Annual Medicare Wellness Exam Hemagl obin A-1C (self reported) don't know 01/27/2017 No ne Annual Medicare Wellness Exam Hours of Sleep 10 01/27/2017 None Annual Medicare Wellness Exam Intera ction with Friends yes 01/27/2017 None Annual Medicare Wellness Exam Intere sts & Pleasure almost all of the time 01/27/2017 None Annual Medicare Wellness Exam Life S atisfaction satisfied 01/27/2017 Non e Annual Medicare Wellness Exam Motor Vehicle Safety always fastens seat belt: y 01/28/20 17 None Annual Medicare Wellness Exam Motor Vehicle Safety drives after drinking: n 01/27/2017 None Annual Medicare Wellness Exam Motor Vehicle Safety rides with someone who has been drinking: n 01/27/2017 None Annual Medicare Wellness Exam Nutrition servings of fried food / high fat foods per day: 0 01/27/2017 None Annual Medicare Wellness Exam Nutrition servings of high fiber / whole grain per day: 2 01/27/2017 None Annual Medicare Wellness Exam Nutrition servings of vegetables / fruit per day: 2 01/27/2017 None Annual Medicare Wellness Exam Smokin g and Tobacco Use non smoker 01/27/2017 No ne Annual Medicare Wellness Exam Social & Emotional [...] clinic 01/25/2017 None Hospital Follow Up _ Oth er: hypoglycemia 01/25/2017 None Hospital Follow Up Quality [...] Findings Denies nausea 01/11/2017 None cough Quality intermitte nt 01/11/2017 None cough Quality productive 01/11/2017 None cough Onset of Symptom 1 -2 weeks ago 01/11/2017 None cough Pertinent Findings sputum production 01/11/2017 (whitish) cough Pertinent Findings Denies chills 01/11/2017 None diabetes mellitus Test results Pt checking blood glucose readings, did not bring results to clinic 01/11/2017 None diabetes mellitus Glucose monitoring occasional glucose testing 01/11/2017 (every other day) cough Quality acute 01/11/2017 None hypertension Onset and Resolution ongoing 01/11/2017 [...] Quality acute 08/04/2016 None hip pain Quality intermi ttent 08/04/2016 None hip pain Onset and Resolution sudden in onset 08/04/2016 None hip pain Onset of Symptom 1.5+ months ago 08/04/2016 None hip pain Mechanism of injury ground level fall 08/04/2016 None shoulder pain Location o n the right shoulder 08/04/2016 None shoulder pain Quality ac [place] 08/04/2016 None shoulder pain Quality in termittent 08/04/2016 None shoulder pain Onset and Resolution [...] diarrhea Quality acute 06/07/2016 None diarrhea Quality intermi ttent 06/07/2016 None diarrhea Quality loose 06/07/2016 None diarrhea Alleviating Factors medication 06/07/2016 None hypertension Quality int ermittent 03/30/2016 None hypertension Onset and Resolution ongoing 03/30/2016 None hypertension Blood Pressure Values patient checking blood pressure at home - did not bring in readings 03/30/2016 None hypertension Severity mi ld 03/30/2016 None hypertension Pertinent Findings Denies dizziness 03/30/2016 None hypertension Pertinent Findings Denies dyspnea 03/30/2016 None diabetes mellitus Onset of Symptom onset as an adult 03/30/2016 None diabetes mellitus Quality NIDDM 03/30/2016 None diabetes mellitus Severity mild 03/30/2016 None diabetes mellitus Pertinent Findings Denies dizziness 03/30/2016 None diabetes mellitus Pertinent Findings Denies dyspnea 03/30/2016 None hypertension Quality int ermittent 09/30/2015 None hypertension Onset and Resolution ongoing 09/30/2015 None hypertension Severity mi ld 09/30/2015 None hypertension Pertinent Findings Denies dizziness [...] 120 09/30/2015 88 this am hypertension Quality int ermittent 07/01/2015 None diabetes mellitus Quality NIDDM 07/01/2015 [...] and Resolution ongoing 07/01/2015 None hypertension Severity mi ld 07/01/2015 None diabetes mellitus Onset of Symptom [...] None diabetes mellitus Severity mild 05/27/2015 None Symptom Name Status Resu lt Effective Date Notes diabetes mellitus Quality non-insulin dependent 03/15/2017 None [...] Pertinent Findings vomiting 03/15/2017 None diarrhea Quality intermi ttent 03/15/2017 None diarrhea Quality loose 03/15/2017 None [...] Annual Medicare Wellness Exam Blood Pressure (self reported) borderline (120/80 - 139/89) 017 None Annual Medicare Wellness Exam Choles terol (self reported) don't know 01/27/2017 No ne Annual Medicare Wellness Exam Depres heather (last 6 months) almost never 01/27/2017 None Annual Medicare Wellness Exam Depres heather or Hopelessness almost never 01/27/2017 None Annual Medicare Wellness Exam Descri be Your Health good 01/27/2017 None Annual Medicare Wellness Exam Exerci se Habits does not exercise 01/27/2017 None Annual Medicare Wellness Exam Handli ng Stress usually malu effectively 01/27/2017 None Annual Medicare Wellness Exam Hemagl obin A-1C (self reported) don't know 01/27/2017 No ne Annual Medicare Wellness Exam Hours of Sleep 10 01/27/2017 None Annual Medicare Wellness Exam Intera ction with Friends yes 01/27/2017 None Annual Medicare Wellness Exam Intere sts & Pleasure almost all of the time 01/27/2017 None Annual Medicare Wellness Exam Life S atisfaction satisfied 01/27/2017 Non e Annual Medicare Wellness Exam Motor Vehicle Safety always fastens seat belt: y 01/28/20 17 None Annual Medicare Wellness Exam Motor Vehicle Safety drives after drinking: n 01/27/2017 None Annual Medicare Wellness Exam Motor Vehicle Safety rides with someone who has been drinking: n 01/27/2017 None Annual Medicare Wellness Exam Nutrition servings of fried food / high fat foods per day: 0 01/27/2017 None Annual Medicare Wellness Exam Nutrition servings of high fiber / whole grain per day: 2 01/27/2017 None Annual Medicare Wellness Exam Nutrition servings of vegetables / fruit per day: 2 01/27/2017 None Annual Medicare Wellness Exam Smokin g and Tobacco Use non smoker 01/27/2017 No ne Annual Medicare Wellness Exam Social & Emotional [...] clinic 01/25/2017 None Hospital Follow Up _ Oth er: hypoglycemia 01/25/2017 None Hospital Follow Up Quality [...] Findings Denies nausea 01/11/2017 None cough Quality intermitte nt 01/11/2017 None cough Quality productive 01/11/2017 None cough Onset of Symptom 1 -2 weeks ago 01/11/2017 None cough Pertinent Findings sputum production 01/11/2017 (whitish) cough Pertinent Findings Denies chills 01/11/2017 None diabetes mellitus Test results Pt checking blood glucose readings, did not bring results to clinic 01/11/2017 None diabetes mellitus Glucose monitoring occasional glucose testing 01/11/2017 (every other day) cough Quality acute 01/11/2017 None hypertension Onset and Resolution ongoing 01/11/2017 [...] Quality acute 08/04/2016 None hip pain Quality intermi ttent 08/04/2016 None hip pain Onset and Resolution sudden in onset 08/04/2016 None hip pain Onset of Symptom 1.5+ months ago 08/04/2016 None hip pain Mechanism of injury ground level fall 08/04/2016 None shoulder pain Location o n the right shoulder 08/04/2016 None shoulder pain Quality ac [place] 08/04/2016 None shoulder pain Quality in termittent 08/04/2016 None shoulder pain Onset and Resolution [...] diarrhea Quality acute 06/07/2016 None diarrhea Quality intermi ttent 06/07/2016 None diarrhea Quality loose 06/07/2016 None diarrhea Alleviating Factors medication 06/07/2016 None hypertension Quality int ermittent 03/30/2016 None hypertension Onset and Resolution ongoing 03/30/2016 None hypertension Blood Pressure Values patient checking blood pressure at home - did not bring in readings 03/30/2016 None hypertension Severity mi ld 03/30/2016 None hypertension Pertinent Findings Denies dizziness 03/30/2016 None hypertension Pertinent Findings Denies dyspnea 03/30/2016 None diabetes mellitus Onset of Symptom onset as an adult 03/30/2016 None diabetes mellitus Quality NIDDM 03/30/2016 None diabetes mellitus Severity mild 03/30/2016 None diabetes mellitus Pertinent Findings Denies dizziness 03/30/2016 None diabetes mellitus Pertinent Findings Denies dyspnea 03/30/2016 None hypertension Quality int ermittent 09/30/2015 None hypertension Onset and Resolution ongoing 09/30/2015 None hypertension Severity mi ld 09/30/2015 None hypertension Pertinent Findings Denies dizziness [...] 120 09/30/2015 88 this am hypertension Quality int ermittent 07/01/2015 None diabetes mellitus Quality NIDDM 07/01/2015 [...] and Resolution ongoing 07/01/2015 None hypertension Severity mi ld 07/01/2015 None diabetes mellitus Onset of Symptom [...] None diabetes mellitus Severity mild 05/27/2015 None Symptom Name Status Resu lt Effective Date Notes diabetes mellitus Quality non-insulin dependent 05/17/2017 None [...] Findings vomiting 05/17/2017 None rash Location-Major on t he upper body 05/17/2017 None rash Location-Major on t he arms 05/17/2017 None rash Location-Extremities on both elbows 05/17/2017 None rash Quality acute 05/17/2017 None rash Pertinent Findings itching 05/17/2017 None [...] Pertinent Findings vomiting 03/15/2017 None diarrhea Quality intermi ttent 03/15/2017 None diarrhea Quality loose 03/15/2017 None [...] Annual Medicare Wellness Exam Blood Pressure (self reported) borderline (120/80 - 139/89) 017 None Annual Medicare Wellness Exam Choles terol (self reported) don't know 01/27/2017 No ne Annual Medicare Wellness Exam Depres heather (last 6 months) almost never 01/27/2017 None Annual Medicare Wellness Exam Depres heather or Hopelessness almost never 01/27/2017 None Annual Medicare Wellness Exam Descri be Your Health good 01/27/2017 None Annual Medicare Wellness Exam Exerci se Habits does not exercise 01/27/2017 None Annual Medicare Wellness Exam Handli ng Stress usually malu effectively 01/27/2017 None Annual Medicare Wellness Exam Hemagl obin A-1C (self reported) don't know 01/27/2017 No ne Annual Medicare Wellness Exam Hours of Sleep 10 01/27/2017 None Annual Medicare Wellness Exam Intera ction with Friends yes 01/27/2017 None Annual Medicare Wellness Exam Intere sts & Pleasure almost all of the time 01/27/2017 None Annual Medicare Wellness Exam Life S atisfaction satisfied 01/27/2017 Non e Annual Medicare Wellness Exam Motor Vehicle Safety always fastens seat belt: y 01/28/20 17 None Annual Medicare Wellness Exam Motor Vehicle Safety drives after drinking: n 01/27/2017 None Annual Medicare Wellness Exam Motor Vehicle Safety rides with someone who has been drinking: n 01/27/2017 None Annual Medicare Wellness Exam Nutrition servings of fried food / high fat foods per day: 0 01/27/2017 None Annual Medicare Wellness Exam Nutrition servings of high fiber / whole grain per day: 2 01/27/2017 None Annual Medicare Wellness Exam Nutrition servings of vegetables / fruit per day: 2 01/27/2017 None Annual Medicare Wellness Exam Smokin g and Tobacco Use non smoker 01/27/2017 No ne Annual Medicare Wellness Exam Social & Emotional [...] clinic 01/25/2017 None Hospital Follow Up _ Oth er: hypoglycemia 01/25/2017 None Hospital Follow Up Quality [...] Findings Denies nausea 01/11/2017 None cough Quality intermitte nt 01/11/2017 None cough Quality productive 01/11/2017 None cough Onset of Symptom 1 -2 weeks ago 01/11/2017 None cough Pertinent Findings sputum production 01/11/2017 (whitish) cough Pertinent Findings Denies chills 01/11/2017 None diabetes mellitus Test results Pt checking blood glucose readings, did not bring results to clinic 01/11/2017 None diabetes mellitus Glucose monitoring occasional glucose testing 01/11/2017 (every other day) cough Quality acute 01/11/2017 None hypertension Onset and Resolution ongoing 01/11/2017 [...] Quality acute 08/04/2016 None hip pain Quality intermi ttent 08/04/2016 None hip pain Onset and Resolution sudden in onset 08/04/2016 None hip pain Onset of Symptom 1.5+ months ago 08/04/2016 None hip pain Mechanism of injury ground level fall 08/04/2016 None shoulder pain Location o n the right shoulder 08/04/2016 None shoulder pain Quality [facility] [place] [employer] [place] 08/04/2016 None shoulder pain Quality in termittent 08/04/2016 None shoulder pain Onset and Resolution [...] diarrhea Quality acute 06/07/2016 None diarrhea Quality intermi ttent 06/07/2016 None diarrhea Quality loose 06/07/2016 None diarrhea Alleviating Factors medication 06/07/2016 None hypertension Quality int ermittent 03/30/2016 None hypertension Onset and Resolution ongoing 03/30/2016 None hypertension Blood Pressure Values patient checking blood pressure at home - did not bring in readings 03/30/2016 None hypertension Severity mi ld 03/30/2016 None hypertension Pertinent Findings Denies dizziness 03/30/2016 None hypertension Pertinent Findings Denies dyspnea 03/30/2016 None diabetes mellitus Onset of Symptom onset as an adult 03/30/2016 None diabetes mellitus Quality NIDDM 03/30/2016 None diabetes mellitus Severity mild 03/30/2016 None diabetes mellitus Pertinent Findings Denies dizziness 03/30/2016 None diabetes mellitus Pertinent Findings Denies dyspnea 03/30/2016 None hypertension Quality int ermittent 09/30/2015 None hypertension Onset and Resolution ongoing 09/30/2015 None hypertension Severity mi ld 09/30/2015 None hypertension Pertinent Findings Denies dizziness [...] 120 09/30/2015 86 this am hypertension Quality int ermittent 07/01/2015 None diabetes mellitus Quality NIDDM 07/01/2015 [...] and Resolution ongoing 07/01/2015 None hypertension Severity mi ld 07/01/2015 None diabetes mellitus Onset of Symptom [...] None diabetes mellitus Severity mild 05/27/2015 None Instructions Comment . Hypertension - wel l controlled - continue with current medications, continue [...] become less controlled. . Medicare Exam - to day we discussed the patients past history, immunizations, [...] has also been counseled that exercise is ne cessary - and of utmost importance as we [...] days. . Hypertension - well controlled - christofer nue with current medications, continue with no added [...] weeks . Hypertension - uncontrolled - the enmanuel ent's medications have been modified as documented in [...] continue with current medication. . Hypertension - wel l controlled - continue with current medications, continue [...] chronic renal disease-recheck labs in 1 months-see buffing machine tender in March . Hypertension - wel l controlled - continue with current medications, continue [...] if their heart rate is becoming uncontrolled. BRING BLOOD SUGAR LO G TO YOUR NEXT APPTOINTMENT . HTN-hospital follow up-blood pressure improved-no changes DM-patient did not bring log to appt-check Hgb A1C and bring log to appt in 2-3 weeks . Left Inguinal Malcolm ia into inguinal canal and apparently pt had a few episodes of "testicle descending" when he has bowel movements. I have contacted Dr. Resendiz's office and he will be seen tomorrow for surgical evaluation. The patient would prefer not to have surgery at [facility] if possible. DM - controlled per [...] had prolonged healing time. . Hypertension - wel l controlled - continue with current medications, continue [...] - start on tamsulosin.. . Hypertension - unc ontrolled - the patient's medications have been modified [...] heart rate is becoming uncontrolled. CONTINUE SAME MEDICA TIONS-NO CHANGES EXCEPT ADD A PROBIOTIC DAILY TO HELP WITH YOUR LOOSE STOOLS -CALL IF SYMPTOMS DO NOT RESOLVE . Hypertension - well controlled - christofer nue with current medications, continue with no added [...] rate is becoming uncontrolled. . Hypertension - wel l controlled - continue with current medications, continue [...] controlled. Anemia in chronic renal disease-check labs Comment . Hypertension - wel l controlled - continue with current medications, continue [...] become less controlled. . Medicare Exam - to day we discussed the patients past history, immunizations, [...] has also been counseled that exercise is ne cessary - and of utmost importance as we [...] days. . Hypertension - well controlled - christofer nue with current medications, continue with no added [...] weeks . Hypertension - uncontrolled - the enmanuel ent's medications have been modified as documented in [...] continue with current medication. . Hypertension - wel l controlled - continue with current medications, continue [...] if their heart rate is becoming uncontrolled. Physical therapy at [facility] for generalized weakness . Pneumonia -hospital follow up -symptoms resolved -lungs clear -call if symptoms return HTN-controlled -no changes Anemia -continue oral iron M/W/F-repeat CBC in 1 month Generalized weakness -set up PT at [facility] INCREASE ATENOLOL TO 1.5 TABS DAILY . [...] chronic renal disease-recheck labs in 1 months-see buffing machine tender in March . Hypertension - wel l controlled - continue with current medications, continue [...] if their heart rate is becoming uncontrolled. BRING BLOOD SUGAR LO G TO YOUR NEXT APPTOINTMENT . HTN-hospital follow up-blood pressure improved-no changes DM-patient did not bring log to appt-check Hgb A1C and bring log to appt in 2-3 weeks . Left Inguinal Malcolm ia into inguinal canal and apparently pt had a few episodes of "testicle descending" when he has bowel movements. I have contacted Dr. Resendiz's office and he will be seen tomorrow for surgical evaluation. The patient would prefer not to have surgery at [facility] if possible. DM - controlled per [...] had prolonged healing time. . Hypertension - wel l controlled - continue with current medications, continue [...] - start on tamsulosin.. . Hypertension - unc ontrolled - the patient's medications have been modified [...] heart rate is becoming uncontrolled. CONTINUE SAME MEDICA TIONS-NO CHANGES EXCEPT ADD A PROBIOTIC DAILY TO HELP WITH YOUR LOOSE STOOLS -CALL IF SYMPTOMS DO NOT RESOLVE . Hypertension - well controlled - christofer nue with current medications, continue with no added [...] rate is becoming uncontrolled. . Hypertension - wel l controlled - continue with current medications, continue [...] controlled. Anemia in chronic renal disease-check labs Comment if the diarrhea does not improve - then call the office in 5-7 days. . Hypertension - well controlled - christofer nue with current medications, continue with no added [...] readings are starting to become less controlled. increase amlodipine from 5mg to 10mg claritin 10mg one time daily (this is over the counter) use the inhaler i gave you - take one time daily until the breathing medication is gone in two weeks . Hypertension - uncontrolled - the enmanuel ent's medications have been modified as documented in [...] continue with current medication. . Hypertension - wel l controlled - continue with current medications, continue [...] chronic renal disease-recheck labs in 1 months-see buffing machine tender in March . Hypertension - wel l controlled - continue with current medications, continue [...] is becoming uncontrolled. . Medicare Exam - to day we discussed the patients past history, immunizations, [...] has also been counseled that exercise is ne cessary - and of utmost importance as we age to help decrease fall risk and to maintain independece in the home. Today we discussed the need for the patient to create paperwork for Advanced directives as well as for the patient to provide this office with a copy of her [place] paperwork for health care surrogate. BRING BLOOD SUGAR LO G TO YOUR NEXT APPTOINTMENT . HTN-hospital follow up-blood pressure improved-no changes DM-patient did not bring log to appt-check Hgb A1C and bring log to appt in 2-3 weeks . Left Inguinal Malcolm ia into inguinal canal and apparently pt had a few episodes of "testicle descending" when he has bowel movements. I have contacted Dr. Resendiz's office and he will be seen tomorrow for surgical evaluation. The patient would prefer not to have surgery at [facility] if possible. DM - controlled per [...] had prolonged healing time. . Hypertension - wel l controlled - continue with current medications, continue [...] - start on tamsulosin.. . Hypertension - unc ontrolled - the patient's medications have been modified [...] heart rate is becoming uncontrolled. CONTINUE SAME MEDICA TIONS-NO CHANGES EXCEPT ADD A PROBIOTIC DAILY TO HELP WITH YOUR LOOSE STOOLS -CALL IF SYMPTOMS DO NOT RESOLVE . Hypertension - well controlled - christofer nue with current medications, continue with no added [...] if their heart rate is becoming uncontrolled. Comment if the diarrhea does not improve - then call the office in 5-7 days. . Hypertension - well controlled - christofer nue with current medications, continue with no added [...] readings are starting to become less controlled. increase amlodipine from 5mg to 10mg claritin 10mg one time daily (this is over the counter) use the inhaler i gave you - take one time daily until the breathing medication is gone in two weeks . Hypertension - uncontrolled - the enmanuel ent's medications have been modified as documented in [...] continue with current medication. . Hypertension - wel l controlled - continue with current medications, continue [...] chronic renal disease-recheck labs in 1 months-see buffing machine tender in March . Hypertension - wel l controlled - continue with current medications, continue [...] is becoming uncontrolled. . Medicare Exam - to day we discussed the patients past history, immunizations, [...] has also been counseled that exercise is ne cessary - and of utmost importance as we age to help decrease fall risk and to maintain independece in the home. Today we discussed the need for the patient to create paperwork for Advanced directives as well as for the patient to provide this office with a copy of her [place] paperwork for health care surrogate. BRING BLOOD SUGAR LO G TO YOUR NEXT APPTOINTMENT . HTN-hospital follow up-blood pressure improved-no changes DM-patient did not bring log to appt-check Hgb A1C and bring log to appt in 2-3 weeks . Left Inguinal Malcolm ia into inguinal canal and apparently pt had a few episodes of "testicle descending" when he has bowel movements. I have contacted Dr. Resendiz's office and he will be seen tomorrow for surgical evaluation. The patient would prefer not to have surgery at [facility] if possible. DM - controlled per [...] had prolonged healing time. . Hypertension - wel l controlled - continue with current medications, continue [...] - start on tamsulosin.. . Hypertension - unc ontrolled - the patient's medications have been modified [...] heart rate is becoming uncontrolled. CONTINUE SAME MEDICA TIONS-NO CHANGES EXCEPT ADD A PROBIOTIC DAILY TO HELP WITH YOUR LOOSE STOOLS -CALL IF SYMPTOMS DO NOT RESOLVE . Hypertension - well controlled - chrsitofer nue with current medications, continue with no added [...] rate is becoming uncontrolled. . Hypertension - wel l controlled - continue with current medications, continue [...] controlled. Anemia in chronic renal disease-check labs Chief Complaint and Reason for Visit Chief Complaint AMS,GEN WEAKNESS W/F ALLS;AFIB,SEPSIS,CHRONIC RENAL Reason for Visit Altered mental stat us Chronic renal failure Acute on chronic renal failure Altered mental status Additional Source Comments This clinical document has been generated using [employer] software that has been certified by the Office of the National Coordinator for Health Information Technology (ONC 15.99.04.3023.[id number].[id number]) and the National Committee for Electronic Data Interchange Specialist (NCQA, as an eMeasure certified technology). FOR RECORDS PERTAINING TO PATIENTS WHO ARE OR HAVE BEEN ENROLLED IN A CHEMICAL D EPENDENCY/SUBSTANCE ABUSE PROGRAM, SOME INFORMATION MAY BE OMITTED. This clinica l summary was aggregated from multiple sources. Caution should be exercised in using it in the provision of clinical care. This summary normalizes information from multiple sources, and as a consequence, information in this document may ma terially change the coding, format and clinical context of patient data. In luis f tion, data may be omitted in some cases. CLINICAL DECISIONS SHOULD BE BASED ON T HE PRIMARY CLINICAL RECORDS. [employer] provides no warranty or guara ntee of the accuracy or completeness of information in this document.The followi ng information is based on time limited clinical information
[2020-06-18 16:30] LABS: ALANINE AMINOTRANSFERASE 26 U/L (0-55); ALBUMIN 2.9 GM/DL (3.2-4.5); ALKALINE PHOSPHATASE 167 U/L (40-136); BILIRUBIN,TOTAL 1.3 MG/DL (0.1-1.0); BUN/CREATININE RATIO 9; CALCIUM 7.9 MG/DL (8.5-10.1); CARBON DIOXIDE 31 MMOL/L (21-32); CHLORIDE 99 MMOL/L (98-107); CREATININE SERUM 1.13 MG/DL (0.60-1.30); GFR ESTIMATED > 60; GLUCOSE 81 MG/DL (70-105); MAGNESIUM 1.9 MG/DL (1.6-2.4); POTASSIUM 2.9 MMOL/L (3.6-5.0); SODIUM 138 MMOL/L (135-145); TOTAL PROTEIN 6.9 GM/DL (6.4-8.2)
--- OUTSIDE RECORDS SUMMARY | 2020-06-18 16:34 | XMS REPORT | Continuity of Care Document ---
Author Organization Unknown Address Unknown Phone Unavailable Allergies Active Description Code Type Severity Reaction Onset Reported/Identified Relationship to Patient Clinical Status Yes NO KNOWN DRUG ALLERGIES UNKNOWN NO KNOWN DRUG ALLERG Yes NO KNOWN DRUG ALLERGIES UNKNOWN UNKNOWN Yes NKANo Known Allergies NKA Miscellaneous Allergy Unknown N/A 2007 Yes No Known Drug Allergies [id number] Drug Allergy Unknown N/A 01/14/2017 Yes bee pollen [id number] Drug Allerg y Unknown Anaphylaxis 12/30/2019 Medications Medication Packaging Start Date St op Date Route Dosage Sig LIDOCAINE 1% W/PRESV W/EPI I NJ (XYLOCAINE W/EPI T PRESERV) ml 12/07/2018 12/07/2018 ONCE&1215 TETANUS,DIPTH,PERT ADULT INJ 0 (ADACEL SYRINGE) ml 12/07/2018 12/07/2018 ONCE&1215 NORMAL SALINE 500CC IV BAG I NJ 0.9 % (NS 500CC IV BAG) ml 12/24/2019 12/24/2019 ONCE&1335 CEFTRIAXONE PREMIX IV BAG IV 1 GM/50CC (ROCEPHIN PREMIX IV BAG) GM 12/24/2019 12/24/2019 ONCE&1426 FUROSEMIDE VIAL INJ 40 MG (LASIX VIAL) MG 12/29/2019 12/29/2019 ONCE&2049 FUROSEMIDE VIAL INJ 40 MG (LASIX VIAL) MG 12/29/2019 12/29/2019 ONCE&2127 TETANUS,DIPTH,PERT ADULT INJ 0 (ADACEL SYRINGE) ML 02/20/2020 02/20/2020 ONCE&2356 Problems Date Dx Coded Attending Type Code Diagnosis Diagnosed By 04/11/[address] BITE TRUNK 04/11/2011 Ot E000.8 OTH ER EXTERNAL CAUSE STATUS 04/11/2011 Ot E849.0 ACC IDENT IN HOME 04/11/2011 Ot E906.4 NON VENOM ARTHROPOD BITE 06/23/2012 Ot 008.8 WES L ENTERITIS NOS 06/23/2012 Ot 038.9 SEPT ICEMIA NOS 06/23/2012 Ot 041.49 OTH ER AND UNSPECIFIED ESCHERICHIA COLI [ 06/23/2012 Ot 250.00 ACOSTA B SMILEY WO COMPL, TYPE II OR UNSPEC TY 06/23/2012 Ot 276.51 DEH YDRATION 06/23/2012 Ot 287.49 OTH ER SECONDARY THROMBOCYTOPENIA 06/23/2012 Ot 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, UNSPEC, W CHR KD ST 06/23/2012 Ot 427.31 ATR IAL FIBRILLATION 06/23/2012 Ot 490 BRONCH ITIS NOS 06/23/2012 Ot 530.81 ESO PHAGEAL REFLUX 06/23/2012 Ot 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 KIDNEY DISEASE, UNSPECIFIED 06/23/2012 Ot 599.0 URIN TRACT INFECTION NOS 06/23/2012 Ot 720.0 ANKY LOSING SPONDYLITIS 06/23/2012 Ot 850.0 CONC USSION W/O COMA 06/23/2012 Ot 924.11 CON TUSION OF KNEE 06/23/2012 Ot 995.91 SEPSIS 06/23/2012 Ot E000.8 OTH ER EXTERNAL CAUSE STATUS 06/23/2012 Ot E849.6 ACC IDENT IN PUBLIC BLDG 06/23/2012 Ot E888.1 FAL L STRIKING OBJECT NEC 06/23/2012 Ot E930.5 ADV EFF CEPHALOSPORIN 10/10/2013 FLAQUITA KELLY Ot 250.00 DIAB SMILEY WO COMPL, TYPE II OR UNSPEC TY 10/10/2013 FLAQUITA KELLY Ot 272.4 HYPERLIPIDEMIA NEC/NOS 10/10/2013 FLAQUITA KELLY Ot 287.5 THROMBOCYTOPENIA NOS 10/10/2013 FLAQUITA KELLY Ot 403.90 HYPTNSV CHR KID DIS, UNSPEC, W CHR KD ST 10/10/2013 FLAQUITA KELLY N Ot 427.31 ATRIAL FIBRILLATION 10/10/2013 FLAQUITA KELLY N Ot 530.81 ESOPHAGEAL REFLUX 10/10/2013 FLAQUITA KELLY Ot 585.9 CHRONIC KIDNEY DISEASE, UNSPECIFIED 10/10/2013 FLAQUITA KELLY Ot V58.61 ANTICOAGULANTS,LT,CURRENT USE 10/10/2013 FLAQUITA KELLY Ot V58.69 OTH MED,LT,CURRENT USE 08/19/2014 CALE DE LA GARZA DO Ot 427.31 ATRIAL FIBRILLATION 05/28/2016 Ot 250.00 ACOSTA B SMILEY WO COMPL, TYPE II OR UNSPEC TY 05/28/2016 Ot 272.4 HYPE RLIPIDEMIA NEC/NOS 05/28/2016 Ot 401.9 HYPE RTENSION NOS 05/28/2016 Ot 786.09 RES PIRATORY ABNORM NEC 05/28/2016 Ot V58.61 ANTICOAGULANTS,LT,CURRENT USE 05/28/2016 Ot V58.69 OTH MED,LT,CURRENT USE 05/28/2016 LINNETTE GOLDSTEIN MD Ot 593.9 RENAL URETERAL DIS NOS 05/28/2016 LINNETTE GOLDSTEIN MD Ot 287.5 THROMBOCYTOPENIA NOS 05/28/2016 Ot 250.00 ACOSTA B SMILEY WO COMPL, TYPE II OR UNSPEC TY 05/28/2016 Ot 272.4 HYPE RLIPIDEMIA NEC/NOS 05/28/2016 Ot 287.5 THRO MBOCYTOPENIA NOS 05/28/2016 Ot 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, UNSPEC, W CHR KD ST 05/28/2016 Ot 427.31 ATR IAL FIBRILLATION 05/28/2016 Ot 530.81 ESO PHAGEAL REFLUX 05/28/2016 Ot 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 DISEASE, UNSPECIFIED 05/28/2016 Ot V58.61 ANTICOAGULANTS,LT,CURRENT USE 05/28/2016 Ot V58.69 OTH MED,LT,CURRENT USE 05/28/2016 Ot 272.4 HYPE RLIPIDEMIA NEC/NOS 05/28/2016 Ot 401.9 HYPE RTENSION NOS 05/28/2016 Ot 427.31 ATR IAL FIBRILLATION 05/28/2016 OJ MOHR FACC, RICHI FACP CCDS Ot 250.00 DIAB SMILEY WO COMPL, TYPE II OR UNSPEC TY 05/28/2016 OJ MOHR FACC, ALI FACP CCDS Ot 272.4 HYPERLIPIDEMIA NEC/NOS 05/28/2016 OJ MOHR FACC, ALI FACP CCDS Ot 401.9 HYPERTENSION NOS 05/28/2016 OJ MOHR FACC, ALI FACP CCDS Ot 427.31 ATRIAL FIBRILLATION 05/28/2016 OJ MOHR FACC, ALI FACP CCDS Ot V58.61 ANTICOAGULANTS,LT,CURRENT USE 05/28/2016 LINNETTE GOLDSTEIN MD Ot 284.19 OTHER PANCYTOPENIA 06/01/2016 ALONSO MOHR, ZAC Sharma Ot A41.1 SEPSIS DUE TO OTHER SPECIFIED [...] SUBSEQUENT 06/01/2016 ZAC GUPTA MD Ot Z79.01 REPORT CLERK (CURRENT) USE OF ANTICOAGULANT 06/01/2016 ZAC GUPTA MD Ot Z87.891 PERSONAL HISTORY OF NICOTINE DEPENDENCE 01/14/2017 Ot 250.00 ACOSTA B SMILEY WO COMPL, TYPE II OR UNSPEC TY 01/14/2017 Ot 272.4 HYPE RLIPIDEMIA NEC/NOS 01/14/2017 Ot 287.5 THRO MBOCYTOPENIA NOS 01/14/2017 Ot 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, UNSPEC, W CHR KD ST 01/14/2017 Ot 427.31 ATR IAL FIBRILLATION 01/14/2017 Ot 530.81 ESO PHAGEAL REFLUX 01/14/2017 Ot 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 KIDNEY DISEASE, UNSPECIFIED 01/14/2017 Ot V58.61 ANTICOAGULANTS,LT,CURRENT USE 01/14/2017 Ot V58.69 OTH MED,LT,CURRENT USE 01/17/2017 ZAC GUPTA MD Ot D61.818 [...] MD Ot I25.10 ATHSCL HEART DISEASE OF [place] CORONARY 01/17/2017 ZAC GUPTA MD Ot I48.2 [...] ZAC GUPTA MD Ot Y92.003 [facility] NON-INSTITUT (PRIVATE) 01/17/2017 ZAC GUPTA MD Ot Z79.84 CARE HOME (CURRENT) USE OF ORAL HYPOGLYC 01/17/2017 ALONSO MOHR, ZAC Sharma Ot Z96.653 PRESENCE OF ARTIFICIAL KNEE JOINT, BILAT 05/18/2018 MACEY DUENAS APRN Ot E11 .9 TYPE 2 DIABETES MELLITUS WITHOUT COMPLIC 05/18/2018 MACEY DUENAS APRN Ot E78.00 PURE HYPERCHOLESTEROLEMIA, UNSPECIFIED 05/18/2018 MACEY DUENAS APRN Ot I10 ESSENTIAL (PRIMARY) HYPERTENSION 05/18/2018 MACEY DUENAS APRN Ot I48.91 UNSPECIFIED ATRIAL FIBRILLATION 05/18/2018 MACEY DUENAS APRN Ot K11 .8 OTHER DISEASES OF SALIVARY [place] 05/18/2018 MACEY DUENAS APRN Ot M54 .2 CERVICALGIA 05/18/2018 MACEY DUENAS APRN Ot Z79.51 CARE HOME (CURRENT) USE OF INHALED STERO 05/18/2018 MACEY DUENAS APRN Ot Z79.82 REPORT CLERK (CURRENT) USE OF ASPIRIN 05/18/2018 MACEY DUENAS APRN Ot Z87.442 PERSONAL HISTORY OF URINARY CALCULI 05/18/2018 MACEY DUENAS APRN Ot Z87.891 PERSONAL HISTORY OF NICOTINE DEPENDENCE 05/18/2018 MACEY DUENAS APRN Ot Z90.89 ACQUIRED ABSENCE OF OTHER ORGANS 05/18/2018 MACEY DUENAS APRN Ot Z96.653 PRESENCE OF ARTIFICIAL KNEE JOINT, BILAT 05/22/2018 MACEY DUENAS APRN Ot E11 .9 TYPE 2 DIABETES MELLITUS WITHOUT COMPLIC 05/22/2018 MACEY DUENAS APRN Ot E78.00 PURE HYPERCHOLESTEROLEMIA, UNSPECIFIED 05/22/2018 MACEY DUENAS APRN Ot I10 ESSENTIAL (PRIMARY) HYPERTENSION 05/22/2018 MACEY DUENAS APRN Ot I48.91 UNSPECIFIED ATRIAL FIBRILLATION 05/22/2018 MACEY DUENAS APRN Ot K11 .8 OTHER DISEASES OF SALIVARY [place] 05/22/2018 MACEY DUENAS APRN Ot M54 .2 CERVICALGIA 05/22/2018 MACEY DUENAS APRN Ot Z79.51 REPORT CLERK (CURRENT) USE OF INHALED STERO 05/22/2018 MACEY DUENAS APRN Ot Z79.82 REPORT CLERK (CURRENT) USE OF ASPIRIN 05/22/2018 MACEY DUENAS APRN Ot Z87.442 PERSONAL HISTORY OF URINARY CALCULI 05/22/2018 MACEY DUENAS BEEF PLUCK TRIMMER Ot Z87.891 PERSONAL HISTORY OF NICOTINE DEPENDENCE 05/22/2018 MACEY DUENAS BEEF PLUCK TRIMMER Ot Z90.89 ACQUIRED ABSENCE OF OTHER ORGANS 05/22/2018 MACEY DUENAS BEEF PLUCK TRIMMER Ot Z96.653 PRESENCE OF ARTIFICIAL KNEE JOINT, BILAT 09/15/2018 ZAC GUPTA MD Ot A40.3 SEPSIS DUE TO STREPTOCOCCUS PNEUMONIAE 09/15/2018 ZAC GUPTA MD Ot A49.1 STREPTOCOCCAL INFECTION, UNSPECIFIED SIT 09/15/2018 ZAC GUPTA MD Ot D50.9 IRON DEFICIENCY ANEMIA, UNSPECIFIED 09/15/2018 ZAC GUPTA MD Ot D63.1 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 KIDNEY DISEASE 09/15/2018 ZAC GUPTA MD Ot E11.9 TYPE 2 DIABETES MELLITUS WITHOUT COMPLIC 09/15/2018 ZAC GUPTA MD Ot E78.00 PURE HYPERCHOLESTEROLEMIA, UNSPECIFIED 09/15/2018 ZAC GUPTA MD Ot E86.0 DEHYDRATION 09/15/2018 ZAC GUPTA MD Ot H91.90 UNSPECIFIED HEARING LOSS, UNSPECIFIED EA 09/15/2018 ZAC GUPTA MD Ot I12.9 HYPERTENSIVE CHRONIC KIDNEY DISEASE W ST 09/15/2018 ZAC GUPTA MD Ot I48.91 UNSPECIFIED ATRIAL FIBRILLATION 09/15/2018 ZAC GUPTA MD Ot J18.9 PNEUMONIA, UNSPECIFIED ORGANISM 09/15/2018 ZAC GUPTA MD Ot M19.91 PRIMARY OSTEOARTHRITIS, UNSPECIFIED SITE 09/15/2018 ZAC GUPTA MD Ot N17.9 ACUTE KIDNEY FAILURE, UNSPECIFIED 09/15/2018 ZAC GUPTA MD Ot N18.3 CHRONIC KIDNEY DISEASE, STAGE 3 (MODERAT 09/15/2018 ZAC GUPTA MD Ot N18.4 CHRONIC KIDNEY DISEASE, STAGE 4 (SEVERE) 09/15/2018 ZAC GUPTA MD Ot N40.0 BENIGN PROSTATIC HYPERPLASIA WITHOUT LOW 09/15/2018 ZAC GUPTA MD Ot R29.6 REPEATED FALLS 09/15/2018 ZAC GUPTA MD Ot R41.0 DISORIENTATION, UNSPECIFIED 09/15/2018 ZAC GUPTA MD Ot R53.1 WEAKNESS 09/15/2018 ALONSO MOHR, ZAC Sharma Ot R78.81 BACTEREMIA 09/15/2018 ALONSO MOHR, ZAC Sharma Ot Z86.73 PRSNL HX OF TIA (TIA), AND CEREB INFRC W 09/15/2018 ALONSO MOHR, ZAC Sharma Ot Z87.09 PERSONAL HISTORY OF OTHER DISEASES OF TH 09/15/2018 ZAC GUPTA MD Ot Z87.442 PERSONAL HISTORY OF URINARY CALCULI 09/15/2018 ALONSO MOHR, ZAC Sharma Ot Z96.653 PRESENCE OF ARTIFICIAL KNEE JOINT, BILAT 11/08/2018 LEISURE, LYNIETA W 780.79 OTHER MALAISE AND FATIGUE 11/08/2018 LEISURE, LYNJOSEA W R53.1 WEAKNESS 11/08/2018 LEISURE, LYNJOSEA W V15.88 PERSONAL HISTORY OF FALL 11/08/2018 LEISURE, LYNIETA W Z91.81 HISTORY OF FALLING 12/07/2018 LEISURE, LYNJOSEA W 873.40 OPEN WOUND OF FACE, UNSPECIFIED SITE, UNCOMPLICATED 12/07/2018 LEISURE, LYNJOSEA W S01.81 LACERATION WITHOUT FOREIGN BODY OF OTHER PART OF HEAD 12/07/2018 LEISURE, LYNIETA W 873.40 OPEN WOUND OF FACE, UNSPECIFIED SITE, UNCOMPLICATED 12/07/2018 LEISURE, LYNIETA W 959.01 HEAD INJURY, UNSPECIFIED 12/07/2018 LEISURE, LYNJOSEA W S01.81 LACERATION WITHOUT FOREIGN BODY OF OTHER PART OF HEAD 12/07/2018 LEISURE, LYNIETA W S09.90 UNSPECIFIED INJURY OF HEAD 12/07/2018 LEISURE, LYNJOSEA W 873.52 OPEN WOUND OF FOREHEAD, COMPLICATED 12/07/2018 LEISURE, LYNIETA W 959.01 HEAD INJURY, UNSPECIFIED 12/07/2018 LEISURE, LYNJOSEA W S01.82 XA LACERATION W FOREIGN BODY OF OTH PART OF HEAD, INIT ENCNTR 12/07/2018 LEISURE, SEAN W S09.90 UNSPECIFIED INJURY OF HEAD 12/14/2018 ROBERTO VERGARA W V58.32 ENCOUNTER FOR REMOVAL OF SUTURES 12/14/2018 ROBERTO VERGARA W Z48.02 ENCOUNTER FOR REMOVAL OF SUTURES 12/14/2019 Ot 272.4 HYPE RLIPIDEMIA NEC/NOS 12/14/2019 Ot 401.9 HYPE RTENSION NOS 12/14/2019 Ot 427.31 ATR IAL FIBRILLATION 12/14/[address] [facility], RICHI FACP CCDS Ot 250.00 DIAB SMILEY WO COMPL, TYPE II OR UNSPEC TY 12/14/2019 OJ MOHR FACC, RICHI FACP CCDS Ot 272.4 HYPERLIPIDEMIA NEC/NOS 12/14/2019 OJ MOHR FACC, ALI FACP CCDS Ot 401.9 HYPERTENSION NOS 12/14/2019 [facility] FACP CCDS Ot 427.31 ATRIAL FIBRILLATION 12/14/[address] 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 12/14/2019 LOCKWOOD DO, YOLANDA Ot E78.00 PURE HYPERCHOLESTEROLEMIA, UNSPECIFIED 12/14/2019 LOCKWOOD DO, YOLANDA Ot F03.90 UNSPECIFIED DEMENTIA WITHOUT BEHAVIORAL 12/14/2019 LOCKWOOD DO, YOLANDA Ot I12.9 HYPERTENSIVE CHRONIC KIDNEY DISEASE W ST 12/14/2019 LOCKWOOD DO, YOLANDA Ot I48.91 UNSPECIFIED ATRIAL FIBRILLATION 12/14/2019 LOCKWOOD DO, YOLANDA Ot J10.1 FLU DUE TO OT IDENT INFLUENZA VIRUS W O 12/14/2019 LOCKWOOD DO, YOLANDA Ot J10.2 INFLUENZA DUE TO OT IDENT INFLUENZA VIR 12/14/2019 LOCKWOOD DO, YOLANDA Ot J42 UNSPECIFIED CHRONIC BRONCHITIS 12/14/2019 LOCKWOOD DO, YOLANDA Ot M19.91 PRIMARY OSTEOARTHRITIS, UNSPECIFIED SITE 12/14/2019 LOCKWOOD DO, YOLANDA Ot N18.4 CHRONIC KIDNEY DISEASE, STAGE 4 (SEVERE) 12/14/2019 LOCKWOOD DO, YOLANDA Ot N30.00 ACUTE CYSTITIS WITHOUT HEMATURIA 12/14/2019 LOCKWOOD DO, YOLANDA Ot N40.1 BENIGN PROSTATIC HYPERPLASIA WITH LOWER 12/14/2019 LOCKWOOD DO, YOLANDA Ot R35.1 NOCTURIA 12/14/2019 LOCKWOOD DO, YOLANDA Ot R41.0 DISORIENTATION, UNSPECIFIED 12/14/2019 LOCKWOOD DO, YOLANDA Ot R53.81 OTHER MALAISE 12/14/2019 LOCKWOOD DO, YOLANDA Ot Z66 DO NOT RESUSCITATE 12/14/2019 YOLANDA LOCKWOOD DO Ot Z86.73 PRSNL HX OF TIA (TIA), AND CEREB INFRC W 12/14/2019 MANDIE VALDIVIA YOLANDA Ot Z87.01 PERSONAL HISTORY OF PNEUMONIA (RECURRENT 12/14/2019 MANDIE VALDIVIA YOLANDA Ot Z87.89 1 PERSONAL HISTORY OF NICOTINE DEPENDENCE 12/14/2019 MANDIE VALDIVIA YOLANDA Ot Z96.65 3 PRESENCE OF ARTIFICIAL KNEE JOINT, BILAT 12/14/2019 Ot 272.4 HYPE RLIPIDEMIA NEC/NOS 12/14/2019 Ot 401.9 HYPE RTENSION NOS 12/14/2019 Ot 427.31 ATR IAL FIBRILLATION 12/14/[address] [facility], ALI FACP CCDS Ot 250.00 DIAB SMILEY WO COMPL, TYPE II OR UNSPEC TY 12/14/[address] [facility], ALI FACP CCDS Ot 272.4 HYPERLIPIDEMIA NEC/NOS 12/14/2019 OJ MOHR FAC, ALI FACP CCDS Ot 401.9 HYPERTENSION NOS 12/14/[address] [facility], ALI FACP CCDS Ot 427.31 ATRIAL FIBRILLATION 12/14/[address] 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 12/17/2019 MANDIE VALDIVIA YOLANDA Ot E78.00 PURE HYPERCHOLESTEROLEMIA, UNSPECIFIED 12/17/2019 KHANG LOCKWOOD DOI Ot F03.90 UNSPECIFIED DEMENTIA WITHOUT BEHAVIORAL 12/17/2019 KHANG LOCKWOOD DOI Ot I12.9 HYPERTENSIVE CHRONIC KIDNEY DISEASE W ST 12/17/2019 KHANG LOCKWOOD DOI Ot I48.91 UNSPECIFIED ATRIAL FIBRILLATION 12/17/2019 KHANG LOCKWOOD DOI Ot J10.1 FLU DUE TO OTH IDENT INFLUENZA VIRUS W O 12/17/2019 KHANG LOCKWOOD DOI Ot J10.2 INFLUENZA DUE TO OTH IDENT INFLUENZA VIR 12/17/2019 MANDIE VALDIVIA YOLANDA Ot J42 UNSPECIFIED CHRONIC BRONCHITIS 12/17/2019 KHANG LOCKWOOD DOI Ot M19.91 PRIMARY OSTEOARTHRITIS, UNSPECIFIED SITE 12/17/2019 MANDIE VALDIVIA YOLANDA Ot N18.4 CHRONIC KIDNEY DISEASE, STAGE 4 (SEVERE) 12/17/2019 LOCKWOOD DO, YOLANDA Ot N30.00 ACUTE CYSTITIS WITHOUT HEMATURIA 12/17/2019 LOCKWOOD DO, YOLANDA Ot N40.1 BENIGN PROSTATIC HYPERPLASIA WITH LOWER 12/17/2019 LOCKWOOD DO, YOLANDA Ot R35.1 NOCTURIA 12/17/2019 LOCKWOOD DO, YOLANDA Ot R41.0 DISORIENTATION, UNSPECIFIED 12/17/2019 LOCKWOOD DO, YOLANDA Ot R53.81 OTHER MALAISE 12/17/2019 LOCKWOOD DO, YOLANDA Ot Z66 DO NOT RESUSCITATE 12/17/2019 LOCKWOOD DO, YOLANDA Ot Z86.73 PRSNL HX OF TIA (TIA), AND CEREB INFRC W 12/17/2019 LOCKWOOD DO, YOLANDA Ot Z87.01 PERSONAL HISTORY OF PNEUMONIA (RECURRENT 12/17/2019 LOCKWOOD DO, YOLANDA Ot Z87.89 1 PERSONAL HISTORY OF NICOTINE DEPENDENCE 12/17/2019 LOCKWOOD DO, YOLANDA Ot Z96.65 3 PRESENCE OF ARTIFICIAL KNEE JOINT, BILAT 12/24/2019 Kalpesh Mcclain 276.51 DEHYDRATION 12/24/2019 Kalpesh Mcclain 585.4 CHRONIC KIDNEY DISEASE, STAGE IV (SEVERE) 12/24/2019 Kalpesh Mcclain 790.6 OTHER ABNORMAL BLOOD CHEMISTRY 12/24/2019 Kalpesh Mcclain 791.9 OTHER NONSPECIFIC FINDINGS ON EXAMINATION OF URINE 12/24/2019 Kalpesh Mcclain E86.0 DEHYDRATION 12/24/2019 Kalpesh Mcclain N18.4 CHRONIC KIDNEY DISEASE, STAGE 4 (SEVERE) 12/24/2019 Kalpesh Mcclain R53.1 WEAKNESS 12/24/2019 Kalpesh Mcclain R79.89 OTHER SPECIFIED ABNORMAL FINDINGS OF BLOOD CHEMISTRY 12/24/2019 Kalpesh Mcclain R82.998 OTHER ABNORMAL FINDINGS IN URINE 12/24/2019 Kalpesh Mcclain S01.82XA LACERATION W FOREIGN BODY OF OTH PART OF HEAD, INIT ENCNTR 12/24/2019 Kalpesh Mcclain Z48.02 ENCOUNTER FOR REMOVAL OF SUTURES 12/24/2019 Kalpesh Mcclain Z91.81 HISTORY OF FALLING 12/29/2019 Macey Duenas 401.0 MALIGNANT ESSENTIAL HYPERTENSION 12/29/2019 Duenas, Peter W 428.9 HEART FAILURE, UNSPECIFIED 12/29/2019 Duenas, Macey W 585.4 CHRONIC KIDNEY DISEASE, STAGE IV (SEVERE) 12/29/2019 Duenas, Macey W 599.70 HEMATURIA, UNSPECIFIED 12/29/2019 Duenas, Macey W I10 ESSENTIAL (PRIMARY) HYPERTENSION 12/29/2019 Duenas, Macey W I50.9 HEART FAILURE, UNSPECIFIED 12/29/2019 Duenas, Macey W N18.4 CHRONIC KIDNEY DISEASE, STAGE 4 (SEVERE) 12/29/2019 Duenas, Macey W R31.9 HEMATURIA, UNSPECIFIED 12/29/2019 Duenas, Macey W R53.1 WEAKNESS 12/29/2019 Duenas, Macey Xie S01.82XA LACERATION W FOREIGN BODY OF OTH PART OF HEAD, INIT ENCNTR 12/29/2019 Duenas, Macey Xie Z48.02 ENCOUNTER FOR REMOVAL OF SUTURES 12/29/2019 Jone, Macey Xie Z91.81 HISTORY OF FALLING 01/01/2020 KIRSTEN MOHR, HERON Blount Ot D61.818 OTHER PANCYTOPENIA 01/01/2020 KIRSTEN MOHR, HERON Blount Ot E11. 9 TYPE 2 DIABETES MELLITUS WITHOUT COMPLIC 01/01/2020 KIRSTEN MOHR, HERON Blount Ot E78. 00 PURE HYPERCHOLESTEROLEMIA, UNSPECIFIED 01/01/2020 KIRSTEN MOHR, HERON Blount Ot E83. 39 OTHER DISORDERS OF PHOSPHORUS METABOLISM 01/01/2020 KIRSTEN MOHR, HERON M Ot E87. 2 ACIDOSIS 01/01/2020 HERON CURTIS MD Ot E87. 5 HYPERKALEMIA 01/01/2020 HERON CURTIS MD Ot I12. 9 HYPERTENSIVE CHRONIC KIDNEY DISEASE W ST 01/01/2020 KIRSTEN MOHR, HERON Blount Ot I48. 20 CHRONIC ATRIAL FIBRILLATION, UNSPECIFIED 01/01/2020 HERON CURTIS MD Ot J18. 9 PNEUMONIA, UNSPECIFIED ORGANISM 01/01/2020 HERON CURTIS MD Ot J42 UNSPECIFIED CHRONIC BRONCHITIS 01/01/2020 KIRSTEN MOHR, HERON Blount Ot J90 PLEURAL EFFUSION, NOT ELSEWHERE CLASSIFI 01/01/2020 HERON CURTIS MD Ot J98. 11 ATELECTASIS 01/01/2020 KIRSTEN MOHR, HERON Blount Ot K74. 60 UNSPECIFIED CIRRHOSIS OF LIVER 01/01/2020 HERON CURTIS MD Ot K76. 6 PORTAL HYPERTENSION 01/01/2020 HERON CURTIS MD Ot M19. 91 PRIMARY OSTEOARTHRITIS, UNSPECIFIED SITE 01/01/2020 HERON CURTIS MD Ot N17. 9 ACUTE KIDNEY FAILURE, UNSPECIFIED 01/01/2020 HERON CURTIS MD, Ot N18. 4 CHRONIC KIDNEY DISEASE, STAGE 4 (SEVERE) 01/01/2020 HERON CURTIS MD Ot N40. 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 1 SPLENOMEGALY, NOT ELSEWHERE CLASSIFIED 01/01/2020 HERON CURTIS MD Ot R18. 8 OTHER ASCITES 01/01/2020 HERON CURTIS MD Ot R40. 0 SOMNOLENCE 01/01/2020 HERON CURTIS MD Ot R53. 81 OTHER MALAISE 01/01/2020 HERON CURTIS MD Ot R79. 1 ABNORMAL COAGULATION PROFILE 01/01/2020 HERON CURTIS MD Ot Z66 DO NOT RESUSCITATE 01/01/2020 HERON CURTIS MD Ot Z86. 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 01/01/2020 MANDIE VALDIVIA YOLANDA Ot E78.00 PURE HYPERCHOLESTEROLEMIA, UNSPECIFIED 01/01/2020 MANDIE VALDIVIA YOLANDA Ot F03.90 UNSPECIFIED DEMENTIA WITHOUT BEHAVIORAL 01/01/2020 MANDIE VALDIVIA YOLANDA Ot I12.9 HYPERTENSIVE CHRONIC KIDNEY DISEASE W ST 01/01/2020 MANDIE VALDIVIA YOLANDA Ot I48.91 UNSPECIFIED ATRIAL FIBRILLATION 01/01/2020 MANDIE VALDIVIA YOLANDA Ot J10.1 FLU DUE TO OTH IDENT INFLUENZA VIRUS W O 01/01/2020 MANDIE VALDIVIA YOLANDA Ot J10.2 INFLUENZA DUE TO OTH IDENT INFLUENZA VIR 01/01/2020 LOCKWOOD DO, YOLANDA Ot J42 UNSPECIFIED CHRONIC BRONCHITIS 01/01/2020 LOCKWOOD DO, YOLANDA Ot M19.91 PRIMARY OSTEOARTHRITIS, UNSPECIFIED SITE 01/01/2020 LOCKWOOD DO, YOLANDA Ot N18.4 CHRONIC KIDNEY DISEASE, STAGE 4 (SEVERE) 01/01/2020 LOCKWOOD DO, YOLANDA Ot N30.00 ACUTE CYSTITIS WITHOUT HEMATURIA 01/01/2020 LOCKWOOD DO, YOLANDA Ot N40.1 BENIGN PROSTATIC HYPERPLASIA WITH LOWER 01/01/2020 LOCKWOOD DO, YOLANDA Ot R35.1 NOCTURIA 01/01/2020 LOCKWOOD DO, YOLANDA Ot R41.0 DISORIENTATION, UNSPECIFIED 01/01/2020 LOCKWOOD DO, YOLANDA Ot R53.81 OTHER MALAISE 01/01/2020 LOCKWOOD DO, YOLANDA Ot Z66 DO NOT RESUSCITATE 01/01/2020 LOCKWOOD DO, YOLANDA Ot Z86.73 PRSNL HX OF TIA (TIA), AND CEREB INFRC W 01/01/2020 LOCKWOOD DO, YOLANDA Ot Z87.01 PERSONAL HISTORY OF PNEUMONIA (RECURRENT 01/01/2020 LOCKWOOD DO, YOLANDA Ot Z87.89 1 PERSONAL HISTORY OF NICOTINE DEPENDENCE 01/01/2020 LOCKWOOD DO, YOLANDA Ot Z96.65 3 PRESENCE OF ARTIFICIAL KNEE JOINT, BILAT 01/01/2020 KIRSTEN MOHR, HERON Blount Ot D61.818 OTHER PANCYTOPENIA 01/01/2020 KIRSTEN MOHR, HERON Blount Ot E11. 9 TYPE 2 DIABETES MELLITUS WITHOUT COMPLIC 01/01/2020 KIRSTEN MOHR, HERON Blount Ot E78. 00 PURE HYPERCHOLESTEROLEMIA, UNSPECIFIED 01/01/2020 HERON CURTIS MD Ot E83. 39 OTHER DISORDERS OF PHOSPHORUS METABOLISM 01/01/2020 HERON CURTIS MD Ot E87. 2 ACIDOSIS 01/01/2020 HERON CURTIS MD Ot E87. 5 HYPERKALEMIA 01/01/2020 HERON CURTIS MD Ot I12. 9 HYPERTENSIVE CHRONIC KIDNEY DISEASE W ST 01/01/2020 HERON CURTIS MD Ot I48. 20 CHRONIC ATRIAL FIBRILLATION, UNSPECIFIED 01/01/2020 HERON CURTIS MD Ot J18. 9 PNEUMONIA, UNSPECIFIED ORGANISM 01/01/2020 HERON CURTIS MD Ot J42 UNSPECIFIED CHRONIC BRONCHITIS 01/01/2020 HERON CURTIS MD Ot J90 PLEURAL EFFUSION, NOT ELSEWHERE CLASSIFI 01/01/2020 HERON CURTIS MD Ot J98. 11 ATELECTASIS 01/01/2020 HERON CURTIS MD Ot K74. 60 UNSPECIFIED CIRRHOSIS OF LIVER 01/01/2020 HERON CURTIS MD Ot K76. 6 PORTAL HYPERTENSION 01/01/2020 HERON CURTIS MD Ot M19. 91 PRIMARY OSTEOARTHRITIS, UNSPECIFIED SITE 01/01/2020 HERON CURTIS MD Ot N17. 9 ACUTE KIDNEY FAILURE, UNSPECIFIED 01/01/2020 HERON CURTIS MD Ot N18. 4 CHRONIC KIDNEY DISEASE, STAGE 4 (SEVERE) 01/01/2020 HERON CURTIS MD Ot N40. 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 1 SPLENOMEGALY, NOT ELSEWHERE CLASSIFIED 01/01/2020 HERON CURTIS MD Ot R18. 8 OTHER ASCITES 01/01/2020 HERON CURTIS MD Ot R40. 0 SOMNOLENCE 01/01/2020 HERON CURTIS MD Ot R53. 81 OTHER MALAISE 01/01/2020 HERON CURTIS MD Ot R79. 1 ABNORMAL COAGULATION PROFILE 01/01/2020 HERON CURTIS MD Ot Z66 DO NOT RESUSCITATE 01/01/2020 HERON CURTIS MD Ot Z86. 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 01/01/2020 MANDIE DO, YOLANDA Ot E78.00 PURE HYPERCHOLESTEROLEMIA, UNSPECIFIED 01/01/2020 MANDIE DO YOLANDA Ot F03.90 UNSPECIFIED DEMENTIA WITHOUT BEHAVIORAL 01/01/2020 MANDIE DO, YOLANDA Ot I12.9 HYPERTENSIVE CHRONIC KIDNEY DISEASE W ST 01/01/2020 LOCKWOOD DO, YOLANDA Ot I48.91 UNSPECIFIED ATRIAL FIBRILLATION 01/01/2020 LOCKWOOD DO, YOLANDA Ot J10.1 FLU DUE TO OTH IDENT INFLUENZA VIRUS W O 01/01/2020 LOCKWOOD DO, YOLANDA Ot J10.2 INFLUENZA DUE TO OTH IDENT INFLUENZA VIR 01/01/2020 LOCKWOOD DO, YOLANDA Ot J42 UNSPECIFIED CHRONIC BRONCHITIS 01/01/2020 LOCKWOOD DO, YOLANDA Ot M19.91 PRIMARY OSTEOARTHRITIS, UNSPECIFIED SITE 01/01/2020 LOCKWOOD DO, YOLANDA Ot N18.4 CHRONIC KIDNEY DISEASE, STAGE 4 (SEVERE) 01/01/2020 LOCKWOOD DO, YOLANDA Ot N30.00 ACUTE CYSTITIS WITHOUT HEMATURIA 01/01/2020 LOCKWOOD DO, YOLANDA Ot N40.1 BENIGN PROSTATIC HYPERPLASIA WITH LOWER 01/01/2020 LOCKWOOD DO, YOLANDA Ot R35.1 NOCTURIA 01/01/2020 LOCKWOOD DO, YOLANDA Ot R41.0 DISORIENTATION, UNSPECIFIED 01/01/2020 LOCKWOOD DO, YOLANDA Ot R53.81 OTHER MALAISE 01/01/2020 LOCKWOOD DO, YOLANDA Ot Z66 DO NOT RESUSCITATE 01/01/2020 LOCKWOOD DO, YOLANDA Ot Z86.73 PRSNL HX OF TIA (TIA), AND CEREB INFRC W 01/01/2020 LOCKWOOD DO, YOLANDA Ot Z87.01 PERSONAL HISTORY OF PNEUMONIA (RECURRENT 01/01/2020 LOCKWOOD DO, YOLANDA Ot Z87.89 1 PERSONAL HISTORY OF NICOTINE DEPENDENCE 01/01/2020 LOCKWOOD DO, YOLANDA Ot Z96.65 3 PRESENCE OF ARTIFICIAL KNEE JOINT, BILAT 01/01/2020 HERON CURTIS MD Ot D61.818 OTHER PANCYTOPENIA 01/01/2020 HERON CURTIS MD Ot E11. 9 TYPE 2 DIABETES MELLITUS WITHOUT COMPLIC 01/01/2020 HERON CURTIS MD Ot E78. 00 PURE HYPERCHOLESTEROLEMIA, UNSPECIFIED 01/01/2020 HERON CURTIS MD Ot E83. 39 OTHER DISORDERS OF PHOSPHORUS METABOLISM 01/01/2020 HERON CURTIS MD Ot E87. 2 ACIDOSIS 01/01/2020 HERON CURTIS MD Ot E87. 5 HYPERKALEMIA 01/01/2020 HERON CURTIS MD Ot I12. 9 HYPERTENSIVE CHRONIC KIDNEY DISEASE W ST 01/01/2020 HERON CURTIS MD Ot I48. 20 CHRONIC ATRIAL FIBRILLATION, UNSPECIFIED 01/01/2020 HERON CURTIS MD Ot J18. 9 PNEUMONIA, UNSPECIFIED ORGANISM 01/01/2020 HERON CURTIS MD Ot J42 UNSPECIFIED CHRONIC BRONCHITIS 01/01/2020 HERON CURTIS MD Ot J90 PLEURAL EFFUSION, NOT ELSEWHERE CLASSIFI 01/01/2020 HERON CURTIS MD Ot J98. 11 ATELECTASIS 01/01/2020 HERON CURTIS MD Ot K74. 60 UNSPECIFIED CIRRHOSIS OF LIVER 01/01/2020 HERON CURTIS MD Ot K76. 6 PORTAL HYPERTENSION 01/01/2020 HERON CURTIS MD Ot M19. 91 PRIMARY OSTEOARTHRITIS, UNSPECIFIED SITE 01/01/2020 HERON CURTIS MD Ot N17. 9 ACUTE KIDNEY FAILURE, UNSPECIFIED 01/01/2020 HERON CURTIS MD Ot N18. 4 CHRONIC KIDNEY DISEASE, STAGE 4 (SEVERE) 01/01/2020 HERON CURTIS MD Ot N40. 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 1 SPLENOMEGALY, NOT ELSEWHERE CLASSIFIED 01/01/2020 HERON CURTIS MD Ot R18. 8 OTHER ASCITES 01/01/2020 HERON CURTIS MD Ot R40. 0 SOMNOLENCE 01/01/2020 HERON CURTIS MD Ot R53. 81 OTHER MALAISE 01/01/2020 HERON CURTIS MD Ot R79. 1 ABNORMAL COAGULATION PROFILE 01/01/2020 HERON CURTIS MD Ot Z66 DO NOT RESUSCITATE 01/01/2020 HERON CURTIS MD Ot Z86. 73 PRSNL HX OF TIA (TIA), AND CEREB INFRC W 01/01/2020 HERON CURTIS MD Ot Z87.891 PERSONAL HISTORY OF NICOTINE DEPENDENCE 01/01/2020 HERON CURTIS MD Ot Z96.651 PRESENCE OF RIGHT ARTIFICIAL KNEE JOINT 01/01/2020 HERON CURTIS MD Ot Z96.652 PRESENCE OF LEFT ARTIFICIAL KNEE JOINT 02/21/2020 JORDAN GARCIA W 873.4 2 OPEN WOUND OF FOREHEAD, UNCOMPLICATED 02/21/2020 JORDAN GARCIA Anne-Marie R53.1 WEAKNESS 02/21/2020 JORDAN GARCIA Anne-Marie S01.8 1XA LACERATION W/O FOREIGN BODY OF OTH PART OF HEAD, INIT ENCNTR 02/21/2020 JORDAN GARCIA Anne-Marie S01.8 2XA LACERATION W FOREIGN BODY OF OTH PART OF HEAD, INIT ENCNTR 02/21/2020 JOSÉ ANTONIOITALIAJORDAN COLEY Anne-Marie Z48.0 2 ENCOUNTER FOR REMOVAL OF SUTURES 02/21/2020 JOSÉ ANTONIOITALIAJORDAN COLEY W Z91.8 1 HISTORY OF FALLING 02/29/2020 Kalpesh Mcclain R53.1 WEAKNESS 02/29/2020 Kalpesh Mcclain S01.82XA LACERATION W FOREIGN BODY OF OTH PART OF HEAD, INIT ENCNTR 02/29/2020 Kalpesh Mcclain V58.32 ENCOUNTER FOR REMOVAL OF SUTURES 02/29/2020 Kalpesh Mcclain Z48.02 ENCOUNTER FOR REMOVAL OF SUTURES 02/29/2020 Kalpesh Mcclain Z91.81 HISTORY OF FALLING Procedures Code Description Performed By Per formed On [id number] DR THOMAS OF LEFT PLEURAL CAVITY, PERC AP 12/30/2019 Results Test Result Range Microalb/Creat - 01/07/17 10:26 Microalb >2000.0 mg/L 0.0-20.0 UMicroalb/UCreat 2485.71 mg/g 0.00-100.0 0 Urine Creatinine 80.5 mg/dl 0.0-50.0 PTH, Intact - 01/07/17 10:26 PTH, INTACT 32 PG/ML 15-65 Complete blood count (CBC) with automate d white blood cell (WBC) differential - 01/14/17 04:04 Blood leukocytes automated count (number/volume) 5.6 10*3/uL 4.3-11.0 Blood erythrocytes automated count (number/volume) 4.17 10*6/uL 4.35-5.85 Venous blood hemoglobin measurement (mass/volume) 12.4 g/dL 13.3-17.7 Blood hematocrit (volume fraction) 37 % 40-54 Automated erythrocyte mean corpuscular volume 90 [ foz_us] 80-99 Automated erythrocyte mean corpuscular h emoglobin (mass per erythrocyte) 30 pg 25-34 Automated erythrocyte mean corpuscular h emoglobin concentration measurement (mass/volume) 33 g/dL 32-36 Automated erythrocyte distribution width ratio 15. 3 % 10.0- 14.5 Automated blood platelet count (count/volume) 145 10*3/uL [...] 10*3 1.0-4.0 Blood monocytes automated count (number/volume) 0. 9 10*3 0.0-1.0 Automated eosinophil count 0.0 10*3/uL 0 .0-0.3 Automated blood basophil count (count/volume) 0.0 10*3/uL 0.0-0.1 PT panel in platelet poor plasma by coag ulation assay - 01/14/17 04:04 Prothrombin time (PT) in platelet poor plasma by coagu lation assay 12.5 s 12.2-14.7 INR in platelet poor plasma or blood by coagulation as say 1.0 0.8-1.4 Activated partial thromboplastin time (a PTT) in platelet poor plasma bycoagulation assay - 01/14/17 04:04 Activated partial thromboplastin time (a PTT) in platelet poor plasma bycoagulation assay 36 s 24-35 Comprehensive metabolic panel - 01/14/17 04:04 Serum or plasma sodium measurement (moles/volume) 143 mmol/L 135-145 Serum or plasma potassium measurement (moles/volume) 3.8 mmol/L 3.6-5.0 Serum or plasma chloride measurement (moles/volume) 113 mmol/L 98-107 Carbon dioxide 19 mmol/L 21-32 Serum or plasma anion gap determination (moles/volume) 11 mmol/L 5-14 Serum or plasma urea nitrogen measurement (mass/volume ) 28 mg/dL 7-18 Serum or plasma creatinine measurement (mass/volume) 2.63 mg/dL 0.60-1.30 Serum or plasma urea nitrogen/creatinine mass ratio 11 NRG Serum or plasma creatinine measurement w ith calculation of estimated glomerular filtration rate 24 NRG Serum or plasma glucose measurement (mass/volume) 32 mg/dL 70-105 Serum or plasma calcium measurement (mass/volume) 8.8 mg/dL 8.5-10.1 Serum or plasma total bilirubin measurement (mass/volu me) 0.4 mg/dL 0.1-1.0 Serum or plasma alkaline phosphatase santiago surement (enzymatic activity/volume) 51 U/L 40-136 Serum or plasma aspartate aminotransfera se measurement (enzymatic activity/volume) 44 U/L 5-34 Serum or plasma alanine aminotransferase measurement (enzymatic activity/volume) 22 U/L 0-55 Serum or plasma protein measurement (mass/volume) 6.2 g/dL 6.4-8.2 Serum or plasma albumin measurement (mass/volume) 3.0 g/dL 3.2-4.5 Magnesium - 01/14/17 04:04 Magnesium 1.6 mg/dL 1.8-2.4 Serum or plasma creatine kinase measurem ent (enzymatic activity/volume) - 01/14/17 04:04 Serum or plasma creatine kinase measurem ent (enzymatic activity/volume) 78 U/L 30-200 Serum or plasma creatine kinase MB measu rement (enzymatic activity/volume) - 01/14/17 04:04 Serum or plasma creatine kinase MB measu rement (enzymatic activity/volume) 2.3 ng/mL <6.6 Serum or plasma troponin i.cardiac measu rement (mass/volume) - 01/14/17 04:04 Serum or plasma troponin i.cardiac measurement (mass/v olume) < ng/mL <0.30 Serum or plasma lithium measurement (mol es/volume) - 01/14/17 04:04 BNP level 203.8 pg/mL <100.0 Digoxin - 01/14/17 04:04 Digoxin < ng/mL 0.80-2.00 Capillary blood glucose measurement by g lucometer (mass/volume) - 01/14/17 04:09 Capillary blood glucose measurement by glucometer (mas s/volume) 35 mg/dL 70-110 Blood lactic acid measurement (moles/vol ume) - 01/14/17 04:31 Blood lactic acid measurement (moles/volume) 0.74 mmol/L 0.50-2.00 Bacterial blood culture - 01/14/17 04:31 Bacterial blood culture NG NRG Complete urinalysis with reflex to cultu re - 01/14/17 04:40 Urine color determination YELLOW NRG Urine clarity determination CLEAR NR G Urine pH measurement by test strip 5 5-9 Specific gravity of urine by test strip 1.020 1.016-1.022 Urine protein assay by test strip, semi-quantitative 4+ NEGATIVE Urine glucose detection by automated test strip NE GATIVE NEGATIVE Erythrocytes detection in urine sediment by light micr oscopy 2+ NEGATIVE Urine ketones detection by automated test strip NE GATIVE NEGATIVE Urine nitrite detection by test strip NEGATIVE NEGATIVE Urine total bilirubin detection by test strip NEGA TIVE NEGATIVE Urine urobilinogen measurement by automated test strip (mass/volume) NORMAL NORMAL Urine leukocyte esterase detection by dipstick NEG ATIVE NEGATIVE Automated urine sediment erythrocyte cou nt by microscopy (number/high power field) RARE NRG Automated urine sediment leukocyte count by microscopy (number/high power field) NONE NRG Bacteria detection in urine sediment by light microsco py NEGATIVE NRG Squamous epithelial cells detection in u rine sediment by light microscopy RARE NRG Crystals detection in urine sediment by light microsco py NONE NRG Casts detection in urine sediment by light microscopy NONE NRG Mucus detection in urine sediment by light microscopy NEGATIVE NRG Complete urinalysis with reflex to culture NO NRG Capillary blood glucose measurement by g lucometer (mass/volume) - 01/14/17 04:47 Capillary blood glucose measurement by glucometer (mas s/volume) 107 mg/dL 70-110 Influenza virus A and B antigen detectio n - 01/14/17 04:55 FLU RESULT NEGATIVE FOR INFLUENZA A AND B ANTIGENS BY IA NRG Bacterial blood culture - 01/14/17 05:07 Bacterial blood culture NG NRG Methicillin resistant Staphylococcus aur eus (MRSA) screening culture - 01/14/17 06:30 Methicillin resistant Staphylococcus aureus (MRSA) scr eening culture NEG NRG Capillary blood glucose measurement by g lucometer (mass/volume) - 01/14/17 06:31 Capillary blood glucose measurement by glucometer (mas s/volume) 94 mg/dL 70-110 Capillary blood glucose measurement by g lucometer (mass/volume) - 01/14/17 10:10 Capillary blood glucose measurement by glucometer (mas s/volume) 107 mg/dL 70-110 Capillary blood glucose measurement by g lucometer (mass/volume) - 01/14/17 16:38 Capillary blood glucose measurement by glucometer (mas s/volume) 277 mg/dL 70-110 Complete blood count (CBC) with automate d white blood cell (WBC) differential - 01/15/17 03:45 Blood leukocytes automated count (number/volume) 3.6 10*3/uL 4.3-11.0 Blood erythrocytes automated count (number/volume) 3.43 10*6/uL 4.35-5.85 Venous blood hemoglobin measurement (mass/volume) 10.2 g/dL 13.3-17.7 Blood hematocrit (volume fraction) 31 % 40-54 Automated erythrocyte mean corpuscular volume 90 [ foz_us] 80-99 Automated erythrocyte mean corpuscular h emoglobin (mass per erythrocyte) 30 pg 25-34 Automated erythrocyte mean corpuscular h emoglobin concentration measurement (mass/volume) 33 g/dL 32-36 Automated erythrocyte distribution width ratio 15. 4 % 10.0- 14.5 Automated blood platelet count (count/volume) 91 1 0*3/uL 130-400 Automated blood platelet mean volume measurement [...] 10*3 1.0-4.0 Blood monocytes automated count (number/volume) 0. 2 10*3 0.0-1.0 Automated eosinophil count 0.0 10*3/uL 0 .0-0.3 Automated blood basophil count (count/volume) 0.0 10*3/uL 0.0-0.1 Whole blood basic metabolic panel - 01/05 11/23 03:45 Serum or plasma sodium measurement (moles/volume) 137 mmol/L 135-145 Serum or plasma potassium measurement (moles/volume) 4.3 mmol/L 3.6-5.0 Serum or plasma chloride measurement (moles/volume) 109 mmol/L 98-107 Carbon dioxide 17 mmol/L 21-32 Serum or plasma anion gap determination (moles/volume) 11 mmol/L 5-14 Serum or plasma urea nitrogen measurement (mass/volume ) 48 mg/dL 7-18 Serum or plasma creatinine measurement (mass/volume) 3.60 mg/dL 0.60-1.30 Serum or plasma urea nitrogen/creatinine mass ratio 13 NRG Serum or plasma creatinine measurement w ith calculation of estimated glomerular filtration rate 16 NRG Serum or plasma glucose measurement (mass/volume) 319 mg/dL 70-105 Serum or plasma calcium measurement (mass/volume) 8.0 mg/dL 8.5-10.1 Serum or plasma phosphate measurement (m ass/volume) - 01/15/17 03:45 Serum or plasma phosphate measurement (mass/volume) 4.0 mg/dL 2.3-4.7 Magnesium - 01/15/17 03:45 Magnesium 1.8 mg/dL 1.8-2.4 Capillary blood glucose measurement by g lucometer (mass/volume) - 01/15/17 12:18 Capillary blood glucose measurement by glucometer (mas s/volume) 273 mg/dL 70-110 Whole blood basic metabolic panel - 01/05 11/23 15:47 Serum or plasma sodium measurement (moles/volume) 136 mmol/L 135-145 Serum or plasma potassium measurement (moles/volume) 4.5 mmol/L 3.6-5.0 Serum or plasma chloride measurement (moles/volume) 109 mmol/L 98-107 Carbon dioxide 15 mmol/L -32 Serum or plasma anion gap determination (moles/volume) 12 mmol/L 5-14 Serum or plasma urea nitrogen measurement (mass/volume ) 56 mg/dL 7-18 Serum or plasma creatinine measurement (mass/volume) 3.62 mg/dL 0.60-1.30 Serum or plasma urea nitrogen/creatinine mass ratio 15 NRG Serum or plasma creatinine measurement w ith calculation of estimated glomerular filtration rate 16 NRG Serum or plasma glucose measurement (mass/volume) 133 mg/dL 70-105 Serum or plasma calcium measurement (mass/volume) 8.1 mg/dL 8.5-10.1 Capillary blood glucose measurement by g lucometer (mass/volume) - 01/15/17 15:53 Capillary blood glucose measurement by glucometer (mas s/volume) 118 mg/dL 70-110 Capillary blood glucose measurement by g lucometer (mass/volume) - 01/15/17 23:13 Capillary blood glucose measurement by glucometer (mas s/volume) 219 mg/dL 70-110 Complete blood count (CBC) with automate d white blood cell (WBC) differential - 01/16/17 04:10 Blood leukocytes automated count (number/volume) 4.9 10*3/uL 4.3-11.0 Blood erythrocytes automated count (number/volume) 3.20 10*6/uL 4.35-5.85 Venous blood hemoglobin measurement (mass/volume) 9.5 g/dL 13.3-17.7 Blood hematocrit (volume fraction) 29 % 40-54 Automated erythrocyte mean corpuscular volume 90 [ foz_us] 80-99 Automated erythrocyte mean corpuscular h emoglobin (mass per erythrocyte) 30 pg 25-34 Automated erythrocyte mean corpuscular h emoglobin concentration measurement (mass/volume) 33 g/dL 32-36 Automated erythrocyte distribution width ratio 14. 9 % 10.0- 14.5 Automated blood platelet count (count/volume) 102 10*3/uL [...] 10*3 1.0-4.0 Blood monocytes automated count (number/volume) 0. 3 10*3 0.0-1.0 Automated eosinophil count 0.0 10*3/uL 0 .0-0.3 Automated blood basophil count (count/volume) 0.0 10*3/uL 0.0-0.1 Whole blood basic metabolic panel - 01/05 12/24 04:10 Serum or plasma sodium measurement (moles/volume) 136 mmol/L 135-145 Serum or plasma potassium measurement (moles/volume) 4.7 mmol/L 3.6-5.0 Serum or plasma chloride measurement (moles/volume) 110 mmol/L 98-107 Carbon dioxide 17 mmol/L 21-32 Serum or plasma anion gap determination (moles/volume) 9 mmol/L 5-14 Serum or plasma urea nitrogen measurement (mass/volume ) 63 mg/dL 7-18 Serum or plasma creatinine measurement (mass/volume) 3.56 mg/dL 0.60-1.30 Serum or plasma urea nitrogen/creatinine mass ratio 18 NRG Serum or plasma creatinine measurement w ith calculation of estimated glomerular filtration rate 17 NRG Serum or plasma glucose measurement (mass/volume) 184 mg/dL 70-105 Serum or plasma calcium measurement (mass/volume) 7.9 mg/dL 8.5-10.1 Serum or plasma phosphate measurement (m ass/volume) - 01/16/17 04:10 Serum or plasma phosphate measurement (mass/volume) 4.1 mg/dL 2.3-4.7 Magnesium - 01/16/17 04:10 Magnesium 1.8 mg/dL 1.8-2.4 Serum or plasma uric acid measurement (m ass/volume) - 01/16/17 04:10 Serum or plasma uric acid measurement (mass/volume) 8.6 mg/dL 2.6-7.2 Capillary blood glucose measurement by g lucometer (mass/volume) - 01/16/17 11:23 Capillary blood glucose measurement by glucometer (mas s/volume) 153 mg/dL 70-110 Capillary blood glucose measurement by g lucometer (mass/volume) - 01/16/17 16:08 Capillary blood glucose measurement by glucometer (mas s/volume) 256 mg/dL 70-110 Whole blood basic metabolic panel - 01/05 12/24 16:21 Serum or plasma sodium measurement (moles/volume) 138 mmol/L 135-145 Serum or plasma potassium measurement (moles/volume) 5.0 mmol/L 3.6-5.0 Serum or plasma chloride measurement (moles/volume) 111 mmol/L 98-107 Carbon dioxide 16 mmol/L 21-32 Serum or plasma anion gap determination (moles/volume) 11 mmol/L 5-14 Serum or plasma urea nitrogen measurement (mass/volume ) 67 mg/dL 7-18 Serum or plasma creatinine measurement (mass/volume) 3.51 mg/dL 0.60-1.30 Serum or plasma urea nitrogen/creatinine mass ratio 19 NRG Serum or plasma creatinine measurement w ith calculation of estimated glomerular filtration rate 17 NRG Serum or plasma glucose measurement (mass/volume) 263 mg/dL 70-105 Serum or plasma calcium measurement (mass/volume) 8.1 mg/dL 8.5-10.1 Capillary blood glucose measurement by g lucometer (mass/volume) - 01/16/17 21:06 Capillary blood glucose measurement by glucometer (mas s/volume) 285 mg/dL 70-110 Complete blood count (CBC) with automate d white blood cell (WBC) differential - 01/17/17 05:28 Blood leukocytes automated count (number/volume) 3.7 10*3/uL 4.3-11.0 Blood erythrocytes automated count (number/volume) 3.41 10*6/uL 4.35-5.85 Venous blood hemoglobin measurement (mass/volume) 10.1 g/dL 13.3-17.7 Blood hematocrit (volume fraction) 31 % 40-54 Automated erythrocyte mean corpuscular volume 90 [ foz_us] 80-99 Automated erythrocyte mean corpuscular h emoglobin (mass per erythrocyte) 30 pg 25-34 Automated erythrocyte mean corpuscular h emoglobin concentration measurement (mass/volume) 33 g/dL 32-36 Automated erythrocyte distribution width ratio 14. 8 % 10.0- 14.5 Automated blood platelet count (count/volume) 108 10*3/uL [...] 10*3 1.0-4.0 Blood monocytes automated count (number/volume) 0. 2 10*3 0.0-1.0 Automated eosinophil count 0.0 10*3/uL 0 .0-0.3 Automated blood basophil count (count/volume) 0.0 10*3/uL 0.0-0.1 Whole blood basic metabolic panel - 01/05 01/21 05:28 Serum or plasma sodium measurement (moles/volume) 139 mmol/L 135-145 Serum or plasma potassium measurement (moles/volume) 4.9 mmol/L 3.6-5.0 Serum or plasma chloride measurement (moles/volume) 113 mmol/L 98-107 Carbon dioxide 16 mmol/L 21-32 Serum or plasma anion gap determination (moles/volume) 10 mmol/L 5-14 Serum or plasma urea nitrogen measurement (mass/volume ) 70 mg/dL 7-18 Serum or plasma creatinine measurement (mass/volume) 3.60 mg/dL 0.60-1.30 Serum or plasma urea nitrogen/creatinine mass ratio 19 NRG Serum or plasma creatinine measurement w ith calculation of estimated glomerular filtration rate 16 NRG Serum or plasma glucose measurement (mass/volume) 184 mg/dL 70-105 Serum or plasma calcium measurement (mass/volume) 7.9 mg/dL 8.5-10.1 Serum or plasma phosphate measurement (m ass/volume) - 01/17/17 05:28 Serum or plasma phosphate [...] g/dL 6.0-8.3 Complete blood count (CBC) with automate d white blood cell (WBC) differential - 05/18/18 21:12 Blood leukocytes automated count (number/volume) 10.4 10*3/uL 4.3-11.0 Blood erythrocytes automated count (number/volume) 3.72 10*6/uL 4.35-5.85 Venous blood hemoglobin measurement (mass/volume) 11.8 g/dL 13.3-17.7 Blood hematocrit (volume fraction) 35 % 40-54 Automated erythrocyte mean corpuscular volume 95 [ foz_us] 80-99 Automated erythrocyte mean corpuscular h emoglobin (mass per erythrocyte) 32 pg 25-34 Automated erythrocyte mean corpuscular h emoglobin concentration measurement (mass/volume) 33 g/dL 32-36 Automated erythrocyte distribution width ratio 16. 0 % 10.0- 14.5 Automated blood platelet count (count/volume) 157 10*3/uL [...] 10*3 1.0-4.0 Blood monocytes automated count (number/volume) 1. 5 10*3 0.0-1.0 Automated eosinophil count 0.2 10*3/uL 0 .0-0.3 Automated blood basophil count (count/volume) 0.0 10*3/uL 0.0-0.1 Whole blood basic metabolic panel - 05/07 12/25 21:12 Serum or plasma sodium measurement (moles/volume) 138 mmol/L 135-145 Serum or plasma potassium measurement (moles/volume) 5.8 mmol/L 3.6-5.0 Serum or plasma chloride measurement (moles/volume) 111 mmol/L 98-107 Carbon dioxide 18 mmol/L 21-32 Serum or plasma anion gap determination (moles/volume) 9 mmol/L 5-14 Serum or plasma urea nitrogen measurement (mass/volume ) 50 mg/dL 7-18 Serum or plasma creatinine measurement (mass/volume) 3.32 mg/dL 0.60-1.30 Serum or plasma urea nitrogen/creatinine mass ratio 15 NRG Serum or plasma creatinine measurement w ith calculation of estimated glomerular filtration rate 18 NRG Serum or plasma glucose measurement (mass/volume) 123 mg/dL 70-105 Serum or plasma calcium measurement (mass/volume) 9.4 mg/dL 8.5-10.1 Whole blood basic metabolic panel - 05/07 12/25 21:58 Serum or plasma sodium measurement (moles/volume) 138 mmol/L 135-145 Serum or plasma potassium measurement (moles/volume) 4.6 mmol/L 3.6-5.0 Serum or plasma chloride measurement (moles/volume) 112 mmol/L 98-107 Carbon dioxide 15 mmol/L 21-32 Serum or plasma anion gap determination (moles/volume) 11 mmol/L 5-14 Serum or plasma urea nitrogen measurement (mass/volume ) 52 mg/dL 7-18 Serum or plasma creatinine measurement (mass/volume) 3.22 mg/dL 0.60-1.30 Serum or plasma urea nitrogen/creatinine mass ratio 16 NRG Serum or plasma creatinine measurement w ith calculation of estimated glomerular filtration rate 19 NRG Serum or plasma glucose measurement (mass/volume) 121 mg/dL 70-105 Serum or plasma calcium measurement (mass/volume) 9.1 mg/dL 8.5-10.1 Complete blood count (CBC) with automate d white blood cell (WBC) differential - 09/13/18 04:16 Blood leukocytes automated count (number/volume) 13.6 10*3/uL 4.3-11.0 Blood erythrocytes automated count (number/volume) 3.35 10*6/uL 4.35-5.85 Venous blood hemoglobin measurement (mass/volume) 10.4 g/dL 13.3-17.7 Blood hematocrit (volume fraction) 33 % 40-54 Automated erythrocyte mean corpuscular volume 97 [ foz_us] 80-99 Automated erythrocyte mean corpuscular h emoglobin (mass per erythrocyte) 31 pg 25-34 Automated erythrocyte mean corpuscular h emoglobin concentration measurement (mass/volume) 32 g/dL 32-36 Automated erythrocyte distribution width ratio 15. 4 % 10.0- 14.5 Automated blood platelet count (count/volume) 173 10*3/uL [...] 10*3 1.0-4.0 Blood monocytes automated count (number/volume) 1. 0 10*3 0.0-1.0 Automated eosinophil count 0.1 10*3/uL 0 .0-0.3 Automated blood basophil count (count/volume) 0.0 10*3/uL 0.0-0.1 PT panel in platelet poor plasma by coag ulation assay - 09/13/18 04:16 Prothrombin time (PT) in platelet poor plasma by coagu lation assay 14.3 s 12.2-14.7 INR in platelet poor plasma or blood by coagulation as say 1.1 0.8-1.4 Activated partial thromboplastin time (a PTT) in platelet poor plasma bycoagulation assay - 09/13/18 04:16 Activated partial thromboplastin time (a PTT) in platelet poor plasma bycoagulation assay 30 s 24-35 Blood lactic acid measurement (moles/vol ume) - 09/13/18 04:16 Blood lactic acid measurement [...] 5-14 Serum or plasma urea nitrogen measurement (mass/volume ) 62 mg/dL 7-18 Serum or plasma creatinine measurement (mass/volume) 3.53 mg/dL 0.60-1.30 Serum or plasma urea nitrogen/creatinine mass ratio 18 NRG Serum or plasma creatinine measurement w ith calculation of estimated glomerular filtration rate 17 NRG Serum or plasma glucose measurement (mass/volume) 120 mg/dL 70-105 Serum or plasma calcium measurement (mass/volume) 9.3 mg/dL 8.5-10.1 Serum or plasma total bilirubin measurement (mass/volu me) 0.6 mg/dL 0.1-1.0 Serum or plasma alkaline phosphatase santiago surement (enzymatic activity/volume) 64 U/L 40-136 Serum or plasma aspartate aminotransfera se measurement (enzymatic activity/volume) 40 U/L 5-34 Serum or plasma alanine aminotransferase measurement (enzymatic activity/volume) 24 U/L 0-55 Serum or plasma protein measurement (mass/volume) 6.5 g/dL 6.4-8.2 Serum or plasma albumin measurement (mass/volume) 3.6 g/dL 3.2-4.5 CALCIUM CORRECTED 9.6 mg/dL 8.5-10.1 Magnesium - 09/13/18 04:16 Magnesium 1.7 mg/dL 1.8-2.4 Blood manual differential performed dete ction - 09/13/18 04:16 Blood monocytes/100 leukocytes 9 % NRG Manual blood segmented neutrophils/100 leukocytes 79 % NRG Blood band neutrophils/100 leukocytes 9 % NRG Manual blood lymphocytes/100 leukocytes 3 % NRG Blood erythrocyte morphology finding identification NORMAL NRG Serum or plasma lithium measurement (mol es/volume) - 09/13/18 04:16 BNP level 592.8 pg/mL <100.0 Serum or plasma troponin i.cardiac measu rement (mass/volume) - 09/13/18 04:16 Serum or plasma troponin i.cardiac measurement (mass/v olume) < ng/mL <0.30 Serum or plasma thyrotropin measurement by detection limit <=0.05 miu/l (units/volume) - 09/13/18 04:16 Serum or plasma thyrotropin measurement by detection limit <=0.05 miu/l (units/volume) 2.33 u[iU]/mL 0.35-4.94 Bacterial blood culture - 09/13/18 04:16 FREE TEXT EXTERNAL SUSCEPTIBILITY TO FOLLOW NRG QUANTITY OF GROWTH . NRG Bacterial blood culture SEE REPORT NRG Complete urinalysis with reflex to cultu re - 09/13/18 05:30 Urine color determination YELLOW NRG Urine clarity determination SLIGHTLY CLOUDY NRG Urine pH measurement by test strip 5 5-9 Specific gravity of urine by test strip 1.020 1.016-1.022 Urine protein assay by test strip, semi-quantitative 3+ NEGATIVE Urine glucose detection by automated test strip NE GATIVE NEGATIVE Erythrocytes detection in urine sediment by light micr oscopy NEGATIVE NEGATIVE Urine ketones detection by automated test strip NE GATIVE NEGATIVE Urine nitrite detection by test strip NEGATIVE NEGATIVE Urine total bilirubin detection by test strip NEGA TIVE NEGATIVE Urine urobilinogen measurement by automated test strip (mass/volume) NORMAL NORMAL Urine leukocyte esterase detection by dipstick NEG ATIVE NEGATIVE Automated urine sediment erythrocyte cou nt by microscopy (number/high power field) NONE NRG Automated urine sediment leukocyte count by microscopy (number/high power field) NONE NRG Bacteria detection in urine sediment by light microsco py NEGATIVE NRG Squamous epithelial cells detection in u rine sediment by light microscopy 2-5 NRG Crystals detection in urine sediment by light microsco py PRESENT NRG Casts detection in urine sediment by light microscopy NONE NRG Mucus detection in urine sediment by light microscopy NEGATIVE NRG Complete urinalysis with reflex to culture NO NRG Amorphous sediment detection in urine sediment by ligh t microscopy MOD LEESA URATES NRG Bacterial urine culture - 09/13/18 05:30 Bacterial urine culture NG NRG Bacterial blood culture - 09/13/18 05:36 Bacterial blood culture NG NRG Influenza virus A and B antigen detectio n - 09/13/18 05:55 FLU RESULT NEGATIVE FOR INFLUENZA A AND B ANTIGENS BY IA NRG Complete blood count (CBC) with automate d white blood cell (WBC) differential - 09/14/18 07:54 Blood leukocytes automated count (number/volume) 13.7 10*3/uL 4.3-11.0 Blood erythrocytes automated count (number/volume) 2.81 10*6/uL 4.35-5.85 Venous blood hemoglobin measurement (mass/volume) 8.8 g/dL 13.3-17.7 Blood hematocrit (volume fraction) 28 % 40-54 Automated erythrocyte mean corpuscular volume 99 [ foz_us] 80-99 Automated erythrocyte mean corpuscular h emoglobin (mass per erythrocyte) 31 pg 25-34 Automated erythrocyte mean corpuscular h emoglobin concentration measurement (mass/volume) 32 g/dL 32-36 Automated erythrocyte distribution width ratio 15. 7 % 10.0- 14.5 Automated blood platelet count (count/volume) 92 1 0*3/uL 130-400 Automated blood platelet mean volume measurement 10.2 [foz_us] 7.4-10.4 Automated blood neutrophils/100 leukocytes 79 % 42-75 Automated blood lymphocytes/100 leukocytes 7 % 12-44 Blood monocytes/100 leukocytes 13 % 0-12 Automated blood eosinophils/100 leukocytes 0 % 0-10 Automated blood basophils/100 leukocytes 0 % 0-10 Blood neutrophils automated count (number/volume) 10.8 10*3 1.8-7.8 Blood lymphocytes automated count (number/volume) 1.0 10*3 1.0-4.0 Blood monocytes automated count (number/volume) 1. 8 10*3 0.0-1.0 Automated eosinophil count 0.1 10*3/uL 0 .0-0.3 Automated blood basophil count (count/volume) 0.0 10*3/uL 0.0-0.1 Comprehensive metabolic panel - 09/14/18 07:54 Serum or plasma sodium measurement (moles/volume) 138 mmol/L 135-145 Serum or plasma potassium measurement (moles/volume) 4.1 mmol/L 3.6-5.0 Serum or plasma chloride measurement (moles/volume) 115 mmol/L 98-107 Carbon dioxide 14 mmol/L 21-32 Serum or plasma anion gap determination (moles/volume) 9 mmol/L 5-14 Serum or plasma urea nitrogen measurement (mass/volume ) 56 mg/dL 7-18 Serum or plasma creatinine measurement (mass/volume) 3.80 mg/dL 0.60-1.30 Serum or plasma urea nitrogen/creatinine mass ratio 15 NRG Serum or plasma creatinine measurement w ith calculation of estimated glomerular filtration rate 15 NRG Serum or plasma glucose measurement (mass/volume) 123 mg/dL 70-105 Serum or plasma calcium measurement (mass/volume) 8.5 mg/dL 8.5-10.1 Serum or plasma total bilirubin measurement (mass/volu me) 0.4 mg/dL 0.1-1.0 Serum or plasma alkaline phosphatase santiago surement (enzymatic activity/volume) 36 U/L 40-136 Serum or plasma aspartate aminotransfera se measurement (enzymatic activity/volume) 42 U/L 5-34 Serum or plasma alanine aminotransferase measurement (enzymatic activity/volume) 25 U/L 0-55 Serum or plasma protein measurement (mass/volume) 5.3 g/dL 6.4-8.2 Serum or plasma albumin measurement (mass/volume) 3.0 g/dL 3.2-4.5 CALCIUM CORRECTED 9.3 mg/dL 8.5-10.1 Magnesium - 09/14/18 07:54 Magnesium 1.5 mg/dL 1.8-2.4 Serum iron and total iron binding capaci ty panel - 09/14/18 07:59 Serum or plasma iron measurement (mass/volume) 12 % 40-180 Total iron binding capacity and transferrin saturation measurement 4 % 15-50 Iron binding capacity [mass/volume] in serum or plasma 268 % 280-380 UIBC (unsaturated iron binding capacity) 256 % 55-450 Serum or plasma ferritin measurement (mass/volume) 117.0 % 32.0-356.0 Automated blood complete blood count (he mogram) panel - 09/15/18 07:20 Blood leukocytes automated count (number/volume) 8.0 10*3/uL 4.3-11.0 Blood erythrocytes automated count (number/volume) 2.80 10*6/uL 4.35-5.85 Venous blood hemoglobin measurement (mass/volume) 8.7 g/dL 13.3-17.7 Blood hematocrit (volume fraction) 28 % 40-54 Automated erythrocyte mean corpuscular volume 98 [ foz_us] 80-99 Automated erythrocyte mean corpuscular h emoglobin (mass per erythrocyte) 31 pg 25-34 Automated erythrocyte mean corpuscular h emoglobin concentration measurement (mass/volume) 32 g/dL 32-36 Automated erythrocyte distribution width ratio 15. 2 % 10.0- 14.5 Automated blood platelet count (count/volume) 89 1 0*3/uL 130-400 Automated blood platelet mean volume measurement 10.0 [foz_us] 7.4-10.4 Whole blood basic metabolic panel - 07/25 07:20 Serum or plasma sodium measurement (moles/volume) 136 mmol/L 135-145 Serum or plasma potassium measurement (moles/volume) 4.1 mmol/L 3.6-5.0 Serum or plasma chloride measurement (moles/volume) 114 mmol/L 98-107 Carbon dioxide 15 mmol/L 21-32 Serum or plasma anion gap determination (moles/volume) 7 mmol/L 5-14 Serum or plasma urea nitrogen measurement (mass/volume ) 54 mg/dL 7-18 Serum or plasma creatinine measurement (mass/volume) 3.73 mg/dL 0.60-1.30 Serum or plasma urea nitrogen/creatinine mass ratio 14 NRG Serum or plasma creatinine measurement w ith calculation of estimated glomerular filtration rate 16 NRG Serum or plasma glucose measurement (mass/volume) 132 mg/dL 70-105 Serum or plasma calcium measurement (mass/volume) 8.7 mg/dL 8.5-10.1 Magnesium - 09/15/18 07:20 Magnesium 2.0 mg/dL 1.8-2.4 Complete blood count (CBC) with automate d white blood cell (WBC) differential - 12/13/19 23:26 Blood leukocytes automated count (number/volume) 5.5 10*3/uL 4.3-11.0 Blood erythrocytes automated count (number/volume) 3.58 10*6/uL 4.35-5.85 Venous blood hemoglobin measurement (mass/volume) 10.8 g/dL 13.3-17.7 Blood hematocrit (volume fraction) 34 % 40-54 Automated erythrocyte mean corpuscular volume 94 [ foz_us] 80-99 Automated erythrocyte mean corpuscular h emoglobin (mass per erythrocyte) 30 pg 25-34 Automated erythrocyte mean corpuscular h emoglobin concentration measurement (mass/volume) 32 g/dL 32-36 Automated erythrocyte distribution width ratio 15. 2 % 10.0- 14.5 Automated blood platelet count (count/volume) 136 10*3/uL 130-400 Automated blood platelet mean volume measurement 10.7 [foz_us] 7.4-10.4 Automated blood neutrophils/100 leukocytes 45 % 42-75 Automated blood lymphocytes/100 leukocytes 29 % 12-44 Blood monocytes/100 leukocytes 20 % 0-12 Automated blood eosinophils/100 leukocytes 5 % 0-10 Automated blood basophils/100 leukocytes 1 % 0-10 Blood neutrophils automated count (number/volume) 2.5 10*3 1.8-7.8 Blood lymphocytes automated count (number/volume) 1.6 10*3 1.0-4.0 Blood monocytes automated count (number/volume) 1. 1 10*3 0.0-1.0 Automated eosinophil count 0.3 10*3/uL 0 .0-0.3 Automated blood basophil count (count/volume) 0.1 10*3/uL 0.0-0.1 Comprehensive metabolic panel - 12/13/19 23:26 Serum or plasma sodium measurement (moles/volume) 140 mmol/L 135-145 Serum or plasma potassium measurement (moles/volume) 4.5 mmol/L 3.6-5.0 Serum or plasma chloride measurement (moles/volume) 113 mmol/L 98-107 Carbon dioxide 18 mmol/L 21-32 Serum or plasma anion gap determination (moles/volume) 9 mmol/L 5-14 Serum or plasma urea nitrogen measurement (mass/volume ) 39 mg/dL 7-18 Serum or plasma creatinine measurement (mass/volume) 2.93 mg/dL 0.60-1.30 Serum or plasma urea nitrogen/creatinine mass ratio 13 NRG Serum or plasma creatinine measurement w ith calculation of estimated glomerular filtration rate 21 NRG Serum or plasma glucose measurement (mass/volume) 96 mg/dL 70-105 Serum or plasma calcium measurement (mass/volume) 8.9 mg/dL 8.5-10.1 Serum or plasma total bilirubin measurement (mass/volu me) 0.9 mg/dL 0.1-1.0 Serum or plasma alkaline phosphatase santiago surement (enzymatic activity/volume) 108 U/L 40-136 Serum or plasma aspartate aminotransfera se measurement (enzymatic activity/volume) 35 U/L 5-34 Serum or plasma alanine aminotransferase measurement (enzymatic activity/volume) 21 U/L 0-55 Serum or plasma protein measurement (mass/volume) 6.3 g/dL 6.4-8.2 Serum or plasma albumin measurement (mass/volume) 3.1 g/dL 3.2-4.5 CALCIUM CORRECTED 9.6 mg/dL 8.5-10.1 Influenza virus A and B antigen detectio n - 12/13/19 23:26 CALL POSITIVES (F1 HELP) @0031 NR FLU RESULT POSITIVE FOR INFLUENZA B ANT IGEN, NEG FOR A ANTIGEN, BY IA NR Complete urinalysis with reflex to cultu re - 12/14/19 01:34 Urine color determination YELLOW NRG Urine clarity determination CLEAR NR G Urine pH measurement by test strip 5.5 5-9 Specific gravity of urine by test strip 1.025 1.016-1.022 Urine protein assay by test strip, semi-quantitative 2+ NEGATIVE Urine glucose detection by automated test strip NE GATIVE NEGATIVE Erythrocytes detection in urine sediment by light micr oscopy TRACE-I NEGATIVE Urine ketones detection by automated test strip NE GATIVE NEGATIVE Urine nitrite detection by test strip NEGATIVE NEGATIVE Urine total bilirubin detection by test strip NEGA TIVE NEGATIVE Urine urobilinogen measurement by automated test strip (mass/volume) 0.2 mg/dL < = 1.0 Urine leukocyte esterase detection by dipstick 1+ NEGATIVE Automated urine sediment erythrocyte cou nt by microscopy (number/high power field) [HPF] NRG Automated urine sediment leukocyte count by microscopy (number/high power field) [HPF] NRG Bacteria detection in urine sediment by light microsco py TRACE NRG Squamous epithelial cells detection in u rine sediment by light microscopy 0-2 NRG Crystals detection in urine sediment by light microsco py NONE NRG Casts detection in urine sediment by light microscopy NONE NRG Mucus detection in urine sediment by light microscopy NEGATIVE NRG Complete urinalysis with reflex to culture YES NRG Bacterial urine culture - 12/14/19 01:34 Bacterial urine culture 3 OR MORE NRG COLONY COUNT 40,000 CFU/ML NRG FTX;REPORTABLE GRAM POSITIVES, SUGGESTING PROBABLE NRG FREE TEXT ENTRY 2 COLLECTION CONTAMINATION WITH SK IN ANGELITO NRG FREE TEXT ENTRY 3 NO SUSCEPTIBILITY PERFORMED NRG Complete blood count (CBC) with automate d white blood cell (WBC) differential - 12/14/19 06:20 Blood leukocytes automated count (number/volume) 5.3 10*3/uL 4.3-11.0 Blood erythrocytes automated count (number/volume) 3.51 10*6/uL 4.35-5.85 Venous blood hemoglobin measurement (mass/volume) 10.6 g/dL 13.3-17.7 Blood hematocrit (volume fraction) 33 % 40-54 Automated erythrocyte mean corpuscular volume 95 [ foz_us] 80-99 Automated erythrocyte mean corpuscular h emoglobin (mass per erythrocyte) 30 pg 25-34 Automated erythrocyte mean corpuscular h emoglobin concentration measurement (mass/volume) 32 g/dL 32-36 Automated erythrocyte distribution width ratio 15. 3 % 10.0- 14.5 Automated blood platelet count (count/volume) 117 10*3/uL 130-400 Automated blood platelet mean volume measurement 10.6 [foz_us] 7.4-10.4 Automated blood neutrophils/100 leukocytes 58 % 42-75 Automated blood lymphocytes/100 leukocytes 19 % 12-44 Blood monocytes/100 leukocytes 20 % 0-12 Automated blood eosinophils/100 leukocytes 3 % 0-10 Automated blood basophils/100 leukocytes 1 % 0-10 Blood neutrophils automated count (number/volume) 3.0 10*3 1.8-7.8 Blood lymphocytes automated count (number/volume) 1.0 10*3 1.0-4.0 Blood monocytes automated count (number/volume) 1. 1 10*3 0.0-1.0 Automated eosinophil count 0.1 10*3/uL 0 .0-0.3 Automated blood basophil count (count/volume) 0.0 10*3/uL 0.0-0.1 Comprehensive metabolic panel - 12/14/19 06:20 Serum or plasma sodium measurement (moles/volume) 142 mmol/L 135-145 Serum or plasma potassium measurement (moles/volume) 4.1 mmol/L 3.6-5.0 Serum or plasma chloride measurement (moles/volume) 115 mmol/L 98-107 Carbon dioxide 18 mmol/L 21-32 Serum or plasma anion gap determination (moles/volume) 9 mmol/L 5-14 Serum or plasma urea nitrogen measurement (mass/volume ) 38 mg/dL 7-18 Serum or plasma creatinine measurement (mass/volume) 2.77 mg/dL 0.60-1.30 Serum or plasma urea nitrogen/creatinine mass ratio 14 NRG Serum or plasma creatinine measurement w ith calculation of estimated glomerular filtration rate 22 NRG Serum or plasma glucose measurement (mass/volume) 102 mg/dL 70-105 Serum or plasma calcium measurement (mass/volume) 8.8 mg/dL 8.5-10.1 Serum or plasma total bilirubin measurement (mass/volu me) 0.8 mg/dL 0.1-1.0 Serum or plasma alkaline phosphatase santiago surement (enzymatic activity/volume) 100 U/L 40-136 Serum or plasma aspartate aminotransfera se measurement (enzymatic activity/volume) 30 U/L 5-34 Serum or plasma alanine aminotransferase measurement (enzymatic activity/volume) 19 U/L 0-55 Serum or plasma protein measurement (mass/volume) 5.9 g/dL 6.4-8.2 Serum or plasma albumin measurement (mass/volume) 2.9 g/dL 3.2-4.5 CALCIUM CORRECTED 9.7 mg/dL 8.5-10.1 PROCALCITONIN (PCT) - 12/14/19 06:20 PROCALCITONIN (PCT) 0.17 ng/mL <0.10 Complete blood count (CBC) with automate d white blood cell (WBC) differential - 12/15/19 05:23 Blood leukocytes automated count (number/volume) 4.5 10*3/uL 4.3-11.0 Blood erythrocytes automated count (number/volume) 3.27 10*6/uL 4.35-5.85 Venous blood hemoglobin measurement (mass/volume) 9.7 g/dL 13.3-17.7 Blood hematocrit (volume fraction) 31 % 40-54 Automated erythrocyte mean corpuscular volume 94 [ foz_us] 80-99 Automated erythrocyte mean corpuscular h emoglobin (mass per erythrocyte) 30 pg 25-34 Automated erythrocyte mean corpuscular h emoglobin concentration measurement (mass/volume) 32 g/dL 32-36 Automated erythrocyte distribution width ratio 15. 1 % 10.0- 14.5 Automated blood platelet count (count/volume) 92 1 0*3/uL 130-400 Automated blood platelet mean volume measurement 10.6 [foz_us] 7.4-10.4 Automated blood neutrophils/100 leukocytes 57 % 42-75 Automated blood lymphocytes/100 leukocytes 20 % 12-44 Blood monocytes/100 leukocytes 20 % 0-12 Automated blood eosinophils/100 leukocytes 2 % 0-10 Automated blood basophils/100 leukocytes 0 % 0-10 Blood neutrophils automated count (number/volume) 2.6 10*3 1.8-7.8 Blood lymphocytes automated count (number/volume) 0.9 10*3 1.0-4.0 Blood monocytes automated count (number/volume) 0. 9 10*3 0.0-1.0 Automated eosinophil count 0.1 10*3/uL 0 .0-0.3 Automated blood basophil count (count/volume) 0.0 10*3/uL 0.0-0.1 Whole blood basic metabolic panel - 06/26 05:23 Serum or plasma sodium measurement (moles/volume) 139 mmol/L 135-145 Serum or plasma potassium measurement (moles/volume) 4.3 mmol/L 3.6-5.0 Serum or plasma chloride measurement (moles/volume) 113 mmol/L 98-107 Carbon dioxide 17 mmol/L 21-32 Serum or plasma anion gap determination (moles/volume) 9 mmol/L 5-14 Serum or plasma urea nitrogen measurement (mass/volume ) 38 mg/dL 7-18 Serum or plasma creatinine measurement (mass/volume) 2.68 mg/dL 0.60-1.30 Serum or plasma urea nitrogen/creatinine mass ratio 14 NRG Serum or plasma creatinine measurement w ith calculation of estimated glomerular filtration rate 23 NRG Serum or plasma glucose measurement (mass/volume) 99 mg/dL 70-105 Serum or plasma calcium measurement (mass/volume) 8.3 mg/dL 8.5-10.1 Serum or plasma ferritin measurement (ma ss/volume) - 12/16/19 07:51 Serum or plasma ferritin measurement (mass/volume) 122.3 % 32.0-356.0 Serum or plasma folate measurement (mass /volume) - 12/16/19 07:51 Serum or plasma folate measurement (mass/volume) 8 .7 % >=4.0 Serum iron and total iron binding capaci ty panel - 12/16/19 07:51 TIBC 181 % 280-380 UIBC 150 % 55-450 Serum or plasma iron measurement (mass/volume) 31 % 40-180 Total iron binding capacity and transferrin saturation measurement 17 % 15-50 VITAMIN B 12 - 12/16/19 07:51 VITAMIN B 12 776 pg/mL 190-1100 Automated blood complete blood count (he mogram) panel - 12/17/19 06:05 Blood leukocytes automated count (number/volume) 3.2 10*3/uL 4.3-11.0 Blood erythrocytes automated count (number/volume) 3.08 10*6/uL 4.35-5.85 Venous blood hemoglobin measurement (mass/volume) 9.3 g/dL 13.3-17.7 Blood hematocrit (volume fraction) 29 % 40-54 Automated erythrocyte mean corpuscular volume 95 [ foz_us] 80-99 Automated erythrocyte mean corpuscular h emoglobin (mass per erythrocyte) 30 pg 25-34 Automated erythrocyte mean corpuscular h emoglobin concentration measurement (mass/volume) 32 g/dL 32-36 Automated erythrocyte distribution width ratio 15. 0 % 10.0- 14.5 Automated blood platelet count (count/volume) 98 1 0*3/uL 130-400 Automated blood platelet mean volume measurement 10.9 [foz_us] 7.4-10.4 Whole blood basic metabolic panel - 12/08 06:05 Serum or plasma sodium measurement (moles/volume) 136 mmol/L 135-145 Serum or plasma potassium measurement (moles/volume) 4.9 mmol/L 3.6-5.0 Serum or plasma chloride measurement (moles/volume) 112 mmol/L 98-107 Carbon dioxide 18 mmol/L 21-32 Serum or plasma anion gap determination (moles/volume) 6 mmol/L 5-14 Serum or plasma urea nitrogen measurement (mass/volume ) 43 mg/dL 7-18 Serum or plasma creatinine measurement (mass/volume) 3.17 mg/dL 0.60-1.30 Serum or plasma urea nitrogen/creatinine mass ratio 14 NRG Serum or plasma creatinine measurement w ith calculation of estimated glomerular filtration rate 19 NRG Serum or plasma glucose measurement (mass/volume) 92 mg/dL 70-105 Serum or plasma calcium measurement (mass/volume) 8.2 mg/dL 8.5-10.1 Comprehensive Metabolic Panel - 12/24/19 11:00 Albumin 2.9 g/dL 3.6-5.1 ALP 109 U/L 35-130 ALT 21 U/L 6-45 Anion Gap 12 6-14 AST 32 U/L 2-40 BUN 57 mg/dL 5-25 Calcium 8.4 mg/dL 8.3-10.4 Chloride 118 mmol/L 95-114 CO2 18 mEq/L 22-33 Creat 4.09 mg/dL 0.50-1.50 eGFR 14 mL/min/1.73m2 >59 Globulin 2.9 g/dL 2.3-3.5 Glucose 124 mg/dL 70-110 Osmo 311 280-295 Potassium 4.9 mmol/L 3.5-5.3 Sodium 143 mmol/L 134-148 TBil 0.5 mg/dL 0.2-1.2 TP 5.8 g/dL 6.0-8.3 Urinalysis - 12/24/19 13:07 Icotest N/A Negative Urine Volume Urine Volume Sufficient (10mL) Urine-Appearance Cloudy Clear Urine-Bacteria Trace Urine-Bilirubin Negative Negative Urine-Blood 1+ Negative Urine-Color Yellow Colorless-Lt. [place] ow Urine-Epithelial Cells 0-5/HPF Urine-Glucose Negative Negative Urine-Ketones Negative Negative Urine-Leukocytes 2+ Negative Urine-Nitrite Negative Negative Urine-Other Culture to follow Urine-pH 5.0 5-8.5 Urine-Protein 2+ Negative Urine-RBC 0-2/HPF Urine-Specific [place] 1.020 1.000-1 .030 Urine-WBC TNTC Urobilinogen 0.2 E.U./dL 0.2-1.0 Urine Culture - 12/24/19 13:07 PRELIM CULTURE RESULTS <10,000 Gram Positive Mixed Angelito [id number] Skin Contaminant FINAL CULTURE RESULTS <10,000 Gram Positive Mixed Angelito [id number] Skin Contaminant [id number] Further Workup done MEDIA PLATED Setup at 13:36 on 12/24/2019 CULTURE SOURCE CC EKG - 12/24/19 14:02 EKG Complete Comprehensive Metabolic Panel - 12/26/19 07:02 Albumin 2.9 g/dL 3.6-5.1 ALP 114 U/L 35-130 ALT 22 U/L 6-45 Anion Gap 15 6-14 AST 34 U/L 2-40 BUN 61 mg/dL 5-25 Calcium 8.6 mg/dL 8.3-10.4 Chloride 116 mmol/L 95-114 CO2 16 mEq/L 22-33 Creat 4.20 mg/dL 0.50-1.50 eGFR 14 mL/min/1.73m2 >59 Globulin 3.0 g/dL 2.3-3.5 Glucose 92 mg/dL 70-110 Osmo 309 280-295 Potassium 5.1 mmol/L 3.5-5.3 Sodium 142 mmol/L 134-148 TBil 0.5 mg/dL 0.2-1.2 TP 5.9 g/dL 6.0-8.3 Comprehensive Metabolic Panel - 12/29/19 16:48 Albumin 2.9 g/dL 3.6-5.1 ALP 132 U/L 35-130 ALT 23 U/L 6-45 Anion Gap 15 6-14 AST 32 U/L 2-40 BUN 69 mg/dL 5-25 Calcium 8.5 mg/dL 8.3-10.4 Chloride 120 mmol/L 95-114 CO2 16 mEq/L 22-33 Creat 4.37 mg/dL 0.50-1.50 eGFR 13 mL/min/1.73m2 >59 Globulin 2.9 g/dL 2.3-3.5 Glucose 126 mg/dL 70-110 Osmo 319 280-295 Potassium 5.6 mmol/L 3.5-5.3 Sodium 145 mmol/L 134-148 TBil 0.5 mg/dL 0.2-1.2 TP 5.8 g/dL 6.0-8.3 Troponin I - 12/29/19 20:49 Troponin 0.030 ng/mL 0.000-0.400 Arterial Blood Gas - 12/29/19 21:09 Base -10.00 mmol/L 1.80-4.20 HCO3 15 mmol/L 20-31 O2 Sat 93 RM AIR % 95-100 pCO2 26 mm/Hg 35-45 pH 7.37 7.35-7.45 PO2 67 mm/Hg 80-95 Urinalysis - 12/29/19 21:48 Icotest N/A Negative Urine Volume Urine Volume Sufficient (10mL) Urine Yeast No Yeast present Urine-Appearance Slightly Cloudy Clear Urine-Bacteria Trace Urine-Bilirubin Negative Negative Urine-Blood 2+ Negative Urine-Color Yellow Colorless-Lt. [place] ow Urine-Epithelial Cells 0-5/HPF Urine-Glucose Negative Negative Urine-Ketones Negative Negative Urine-Leukocytes Negative Negative Urine-Mucus 1+ Urine-Nitrite Negative Negative Urine-Other Culture to follow Urine-pH 5.0 5-8.5 Urine-Protein 2+ Negative Urine-RBC 10-20/HPF Urine-Specific [place] 1.025 1.000-1 .030 Urine-WBC 20-40/HPF Urobilinogen 0.2 0.2-1.0 Urine Culture - 12/29/19 21:48 PRELIM CULTURE RESULTS No Growth 24 hours FINAL CULTURE RESULTS No Growth 48 hours MEDIA PLATED Setup at 21:57 on 12/29/2019 CULTURE SOURCE catheter Complete blood count (CBC) with automate d white blood cell (WBC) differential - 12/30/19 02:53 Blood leukocytes automated count (number/volume) 3.3 10*3/uL 4.3-11.0 Blood erythrocytes automated count (number/volume) 2.75 10*6/uL 4.35-5.85 Venous blood hemoglobin measurement (mass/volume) 8.5 g/dL 13.3-17.7 Blood hematocrit (volume fraction) 27 % 40-54 Automated erythrocyte mean corpuscular volume 96 [ foz_us] 80-99 Automated erythrocyte mean corpuscular h emoglobin (mass per erythrocyte) 31 pg 25-34 Automated erythrocyte mean corpuscular h emoglobin concentration measurement (mass/volume) 32 g/dL 32-36 Automated erythrocyte distribution width ratio 15. 6 % 10.0- 14.5 Automated blood platelet count (count/volume) 108 10*3/uL 130-400 Automated blood platelet mean volume measurement 9.9 [foz_us] 7.4-10.4 Automated blood neutrophils/100 leukocytes 43 % 42-75 Automated blood lymphocytes/100 leukocytes 27 % 12-44 Blood monocytes/100 leukocytes 21 % 0-12 Automated blood eosinophils/100 leukocytes 8 % 0-10 Automated blood basophils/100 leukocytes 1 % 0-10 Blood neutrophils automated count (number/volume) 1.4 10*3 1.8-7.8 Blood lymphocytes automated count (number/volume) 0.9 10*3 1.0-4.0 Blood monocytes automated count (number/volume) 0. 7 10*3 0.0-1.0 Automated eosinophil count 0.3 10*3/uL 0 .0-0.3 Automated blood basophil count (count/volume) 0.0 10*3/uL 0.0-0.1 Comprehensive metabolic panel - 12/30/19 02:53 Serum or plasma sodium measurement (moles/volume) 143 mmol/L 135-145 Serum or plasma potassium measurement (moles/volume) 5.2 mmol/L 3.6-5.0 Serum or plasma chloride measurement (moles/volume) 118 mmol/L 98-107 Carbon dioxide 15 mmol/L 21-32 Serum or plasma anion gap determination (moles/volume) 10 mmol/L 5-14 Serum or plasma urea nitrogen measurement (mass/volume ) 67 mg/dL 7-18 Serum or plasma creatinine measurement (mass/volume) 4.36 mg/dL 0.60-1.30 Serum or plasma urea nitrogen/creatinine mass ratio 15 NRG Serum or plasma creatinine measurement w ith calculation of estimated glomerular filtration rate 13 NRG Serum or plasma glucose measurement (mass/volume) 88 mg/dL 70-105 Serum or plasma calcium measurement (mass/volume) 8.4 mg/dL 8.5-10.1 Serum or plasma total bilirubin measurement (mass/volu me) 0.5 mg/dL 0.1-1.0 Serum or plasma alkaline phosphatase santiago surement (enzymatic activity/volume) 132 U/L 40-136 Serum or plasma aspartate aminotransfera se measurement (enzymatic activity/volume) 30 U/L 5-34 Serum or plasma alanine aminotransferase measurement (enzymatic activity/volume) 18 U/L 0-55 Serum or plasma protein measurement (mass/volume) 5.7 g/dL 6.4-8.2 Serum or plasma albumin measurement (mass/volume) 2.8 g/dL 3.2-4.5 CALCIUM CORRECTED 9.4 mg/dL 8.5-10.1 Serum or plasma phosphate measurement (m ass/volume) - 12/30/19 02:53 Serum or plasma phosphate measurement (mass/volume) 5.0 mg/dL 2.3-4.7 Magnesium - 12/30/19 02:53 Magnesium 1.8 mg/dL 1.6-2.4 [id number] - 12/30/19 02:53 Prothrombin time (PT) in platelet poor plasma by coagu lation assay 13.5 s 12.2-14.7 INR in platelet poor plasma or blood by coagulation as say 1.0 0.8-1.4 Activated partial thromboplastin time (a PTT) in platelet poor plasma bycoagulation assay 40 s 24-35 Fibrin D-dimer FEU measurement in platelet poor plasma (mass/volume) 8.18 ug/mL 0.00-0.49 Fibrinogen measurement in platelet poor plasma by coagulation assay (mass/volume) 374 mg/dL [phone] Heparin induced platelet Ab [Presence] i n Serum or Plasma by Immunoassay - 12/30/19 02:53 Serum platelet ab.heparin induced measurement (units/v olume) Negative NRG Body fluid cell count - 12/30/19 06:30 Specimen source identification of body fluid THORA CENTESIS NRG Evaluation of color of body fluid YELLOW NRG Determination of appearance of body fluid CLOUDY NRG Body fluid leukocytes count (number/volume) 165 /u L NRG Body fluid erythrocytes count (number/volume) 2660 /uL NRG Manual body fluid polymorphonuclear cells/100 leukocyt es 1 % NRG Manual body fluid mononuclear cells/100 leukocytes 6 % NRG Manual body fluid lymphocytes/100 leukocytes 33 % NRG Manual body fluid other cell count (number) 60 % NRG * PH of body fluid - 12/30/19 06:30 * PH of body fluid 7.0 NRG Glucose body fluid - 12/30/19 06:30 Glucose body fluid 94 mg/dL NRG Body fluid total protein measurement - 0 12/30/19 06:30 Body fluid total protein measurement 1.0 g/dL NRG Body fluid/serum or plasma lactate dehyd rogenase (LDH) ratio - 12/30/19 06:30 Body fluid/serum or plasma lactate dehydrogenase (LDH) ratio 39 U/L NRG Bacteria identification in isolate by an aerobe culture - 12/30/19 06:30 Bacteria identification in isolate by anaerobe culture NOANA NRG Gram stain microscopy - 12/30/19 06:30 Gram stain microscopy NO BACTERIA SEEN NRG Bacterial body fluid culture - 12/30/19 06:30 Bacterial body fluid culture NG N RG Blood lactic acid measurement (moles/vol ume) - 12/30/19 06:41 Blood lactic acid measurement (moles/volume) 1.29 mmol/L 0.50-2.00 Bacterial blood culture - 12/30/19 06:41 Bacterial blood culture NG NRG Bacterial blood culture - 12/30/19 06:50 Bacterial blood culture NG NRG Bacterial blood culture - 12/30/19 06:55 Bacterial blood culture NG NRG Urine Legionella pneumophila antigen ass ay - 12/30/19 08:05 Urine Legionella pneumophila antigen assay Negativ e NRG Streptococcus pneumoniae antigen detecti on - 12/30/19 08:05 Streptococcus pneumoniae antigen detection Negativ e NRG Complete urinalysis with reflex to cultu re - 12/30/19 10:43 Urine color determination ORANGE NRG Urine clarity determination SL CLOUDY N RG Urine pH measurement by test strip 5.0 5-9 Specific gravity of urine by test strip 1.020 1.016-1.022 Urine protein assay by test strip, semi-quantitative 2+ NEGATIVE Urine glucose detection by automated test strip NE GATIVE NEGATIVE Erythrocytes detection in urine sediment by light micr oscopy 3+ NEGATIVE Urine ketones detection by automated test strip NE GATIVE NEGATIVE Urine nitrite detection by test strip NEGATIVE NEGATIVE Urine total bilirubin detection by test strip 1+ NEGATIVE Urine urobilinogen measurement by automated test strip (mass/volume) 0.2 mg/dL < = 1.0 Urine leukocyte esterase detection by dipstick 1+ NEGATIVE Automated urine sediment erythrocyte cou nt by microscopy (number/high power field) TNTC NRG Automated urine sediment leukocyte count by microscopy (number/high power field) RARE NRG Bacteria detection in urine sediment by light microsco py NEGATIVE NRG Squamous epithelial cells detection in u rine sediment by light microscopy NONE NRG Crystals detection in urine sediment by light microsco py NONE NRG Casts detection in urine sediment by light microscopy NONE NRG Mucus detection in urine sediment by light microscopy NEGATIVE NRG Complete urinalysis with reflex to culture NO NRG Complete blood count (CBC) with automate d white blood cell (WBC) differential - 12/31/19 03:20 Blood leukocytes automated count (number/volume) 3.2 10*3/uL 4.3-11.0 Blood erythrocytes automated count (number/volume) 2.94 10*6/uL 4.35-5.85 Venous blood hemoglobin measurement (mass/volume) 8.7 g/dL 13.3-17.7 Blood hematocrit (volume fraction) 28 % 40-54 Automated erythrocyte mean corpuscular volume 96 [ foz_us] 80-99 Automated erythrocyte mean corpuscular h emoglobin (mass per erythrocyte) 30 pg 25-34 Automated erythrocyte mean corpuscular h emoglobin concentration measurement (mass/volume) 31 g/dL 32-36 Automated erythrocyte distribution width ratio 16. 0 % 10.0- 14.5 Automated blood platelet count (count/volume) 103 10*3/uL 130-400 Automated blood platelet mean volume measurement 10.5 [foz_us] 7.4-10.4 Automated blood neutrophils/100 leukocytes 55 % 42-75 Automated blood lymphocytes/100 leukocytes 21 % 12-44 Blood monocytes/100 leukocytes 15 % 0-12 Automated blood eosinophils/100 leukocytes 8 % 0-10 Automated blood basophils/100 leukocytes 1 % 0-10 Blood neutrophils automated count (number/volume) 1.8 10*3 1.8-7.8 Blood lymphocytes automated count (number/volume) 0.7 10*3 1.0-4.0 Blood monocytes automated count (number/volume) 0. 5 10*3 0.0-1.0 Automated eosinophil count 0.2 10*3/uL 0 .0-0.3 Automated blood basophil count (count/volume) 0.0 10*3/uL 0.0-0.1 Whole blood basic metabolic panel - 12/09 02/24 03:20 Serum or plasma sodium measurement (moles/volume) 141 mmol/L 135-145 Serum or plasma potassium measurement (moles/volume) 4.9 mmol/L 3.6-5.0 Serum or plasma chloride measurement (moles/volume) 112 mmol/L 98-107 Carbon dioxide 16 mmol/L 21-32 Serum or plasma anion gap determination (moles/volume) 13 mmol/L 5-14 Serum or plasma urea nitrogen measurement (mass/volume ) 62 mg/dL 7-18 Serum or plasma creatinine measurement (mass/volume) 4.28 mg/dL 0.60-1.30 Serum or plasma urea nitrogen/creatinine mass ratio 14 NRG Serum or plasma creatinine measurement w ith calculation of estimated glomerular filtration rate 13 NRG Serum or plasma glucose measurement (mass/volume) 78 mg/dL 70-105 Serum or plasma calcium measurement (mass/volume) 8.4 mg/dL 8.5-10.1 Serum or plasma phosphate measurement (m ass/volume) - 12/31/19 03:20 Serum or plasma phosphate measurement (mass/volume) 4.5 mg/dL 2.3-4.7 Magnesium - 12/31/19 03:20 Magnesium 1.6 mg/dL 1.6-2.4 Arterial blood gas measurement - 0 05:35 Blood pCO2 30 mm[Hg] 35-45 Blood pO2 70 mm[Hg] 79-93 Arterial blood bicarbonate measurement (moles/volume) 20 mmol/L 23-27 Arterial blood base excess by calculation -3.2 mmo l/L -2.5-2.5 Arterial blood oxygen saturation measurement 94 % 94-100 * Inhaled oxygen flow rate 21% NRG Arterial blood pH measurement with patient temperature correction 7.44 7.37-7.43 Arterial blood carbon dioxide, total measurement (mole s/volume) 21.3 mmol/L 21.0-31.0 Body site LEFT RADIAL NRG Assessment of wrist artery patency prior to arterial p uncture YES-POS NRG Setting of ventilation mode YES NR G Measurement of body temperature 36.5 NRG Complete blood count (CBC) with automate d white blood cell (WBC) differential - 01/01/20 04:15 Blood leukocytes automated count (number/volume) 2.3 10*3/uL 4.3-11.0 Blood erythrocytes automated count (number/volume) 2.64 10*6/uL 4.35-5.85 Venous blood hemoglobin measurement (mass/volume) 8.1 g/dL 13.3-17.7 Blood hematocrit (volume fraction) 25 % 40-54 Automated erythrocyte mean corpuscular volume 95 [ foz_us] 80-99 Automated erythrocyte mean corpuscular h emoglobin (mass per erythrocyte) 31 pg 25-34 Automated erythrocyte mean corpuscular h emoglobin concentration measurement (mass/volume) 32 g/dL 32-36 Automated erythrocyte distribution width ratio 15. 6 % 10.0- 14.5 Automated blood platelet count (count/volume) 85 1 0*3/uL 130-400 Automated blood platelet mean volume measurement 10.9 [foz_us] 7.4-10.4 Automated blood neutrophils/100 leukocytes 87 % 42-75 Automated blood lymphocytes/100 leukocytes 7 % 12-44 Blood monocytes/100 leukocytes 6 % 0-12 Automated blood eosinophils/100 leukocytes 0 % 0-10 Automated blood basophils/100 leukocytes 0 % 0-10 Blood neutrophils automated count (number/volume) 2.0 10*3 1.8-7.8 Blood lymphocytes automated count (number/volume) 0.2 10*3 1.0-4.0 Blood monocytes automated count (number/volume) 0. 1 10*3 0.0-1.0 Automated eosinophil count 0.0 10*3/uL 0 .0-0.3 Automated blood basophil count (count/volume) 0.0 10*3/uL 0.0-0.1 Whole blood basic metabolic panel - 12/09 03/26 04:15 Serum or plasma sodium measurement (moles/volume) 140 mmol/L 135-145 Serum or plasma potassium measurement (moles/volume) 4.5 mmol/L 3.6-5.0 Serum or plasma chloride measurement (moles/volume) 107 mmol/L 98-107 Carbon dioxide 21 mmol/L 21-32 Serum or plasma anion gap determination (moles/volume) 12 mmol/L 5-14 Serum or plasma urea nitrogen measurement (mass/volume ) 63 mg/dL 7-18 Serum or plasma creatinine measurement (mass/volume) 4.48 mg/dL 0.60-1.30 Serum or plasma urea nitrogen/creatinine mass ratio 14 NRG Serum or plasma creatinine measurement w ith calculation of estimated glomerular filtration rate 13 NRG Serum or plasma glucose measurement (mass/volume) 179 mg/dL 70-105 Serum or plasma calcium measurement (mass/volume) 8.0 mg/dL 8.5-10.1 Serum or plasma phosphate measurement (m ass/volume) - 01/01/20 04:15 Serum or plasma phosphate measurement (mass/volume) 4.6 mg/dL 2.3-4.7 Magnesium - 01/01/20 04:15 Magnesium 1.8 mg/dL 1.6-2.4 OCCULT BLOOD STOOL - 01/01/20 10:00 Stool gastrointestinal hemoglobin detection POSITI VE NEGATIVE Complete blood count (CBC) with automate d white blood cell (WBC) differential - 06/18/20 15:53 Blood leukocytes automated count (number/volume) 4.3 10*3/uL 4.3-11.0 Blood erythrocytes automated count (number/volume) 3.78 10*6/uL 4.35-5.85 Venous blood hemoglobin measurement (mass/volume) 12.2 g/dL 13.3-17.7 Blood hematocrit (volume fraction) 36 % 40-54 Automated erythrocyte mean corpuscular volume 96 [ foz_us] 80-99 Automated erythrocyte mean corpuscular h emoglobin (mass per erythrocyte) 32 pg 25-34 Automated erythrocyte mean corpuscular h emoglobin concentration measurement (mass/volume) 34 g/dL 32-36 Automated erythrocyte distribution width ratio 16. 3 % 10.0- 14.5 Automated blood platelet count (count/volume) 129 10*3/uL 130-400 Automated blood platelet mean volume measurement 9.4 [foz_us] 7.4-10.4 Automated blood neutrophils/100 leukocytes 46 % 42-75 Automated blood lymphocytes/100 leukocytes 27 % 12-44 Blood monocytes/100 leukocytes 22 % 0-12 Automated blood eosinophils/100 leukocytes 5 % 0-10 Automated blood basophils/100 leukocytes 1 % 0-10 Blood neutrophils automated count (number/volume) 2.0 10*3 1.8-7.8 Blood lymphocytes automated count (number/volume) 1.2 10*3 1.0-4.0 Blood monocytes automated count (number/volume) 0. 9 10*3 0.0-1.0 Automated eosinophil count 0.2 10*3/uL 0 .0-0.3 Automated blood basophil count (count/volume) 0.0 10*3/uL 0.0-0.1 PT panel in platelet poor plasma by coag ulation assay - 06/18/20 15:53 Prothrombin time (PT) in platelet poor plasma by coagu lation assay 13.5 s 12.2-14.7 INR in platelet poor plasma or blood by coagulation as say 1.0 0.8-1.4 Activated partial thromboplastin time (a PTT) in platelet poor plasma bycoagulation assay - 06/18/20 15:53 Activated partial thromboplastin time (a PTT) in platelet poor plasma bycoagulation assay 84 s 24-35 Encounters ACCT No. Visit Date/Time Discharge Status Pt. Type Provider Facility Loc./Unit Complaint [id number] 02/29/2020 16:11:00 02/29/2020 16:40 :00 DIS Outpatient Kalpesh Mcclain [id number] 02/20/2020 23:38:00 02/21/2020 00:55 :00 DIS Outpatient JOSE JORDAN [facility] ER [id number] 12/29/2019 16:44:00 12/29/2019 23:59 :00 DIS Outpatient Kirit Pérez [id number] 12/29/2019 20:42:00 12/29/2019 22:40 :00 DIS Outpatient Macey Duenas [id number] 12/26/2019 07:00:00 12/26/2019 23:59 :00 DIS Outpatient Kirit Pérez [id number] 12/24/2019 10:57:00 12/24/2019 23:59 :00 DIS Outpatient Jesu Thibodeaux [id number] 12/24/2019 12:42:00 12/24/2019 16:00 :00 DIS Outpatient Johny [facility] ER [id number] 12/14/2018 15:32:00 12/14/2018 23:59: 00 DIS Outpatient ROBERTO VERGARA [id number] 12/07/2018 12:10:00 12/07/2018 13:04: 00 DIS Outpatient SEAN DUMONT [facility] ER [id number] 11/08/2018 12:58:00 11/08/2018 15:15: 00 DIS Outpatient LEISURE, SEAN Foy [facility] ER [id number] 02/09/2017 11:29:00 02/09/2017 23:59: 00 DIS Outpatient ZAC GUPTA [id number] 01/07/2017 10:14:00 01/07/2017 23:59: 00 DIS Outpatient [id number] 12/07/2018 12:15:54 Document Registration [id number] 12/29/2019 22:56:00 020 18:55:00 DIS Inpatient HERON CURTIS MD [facility] ICU CHL, ACCUTE ONCHRONIC K IDNEY DISEASE [id number] 12/14/2019 12:01:00 020 14:53:00 DIS Inpatient YOLANDA LOCKWOOD DO, [facility] 4TH UTI,INFLUENZA B [id number] 09/13/2018 06:34:00 018 11:15:00 DIS Inpatient ZAC GUPTA MD [facility] 4TH AMS,GEN WEAKNESS W/FALLS;AFIB,SEPSIS,CHRONIC RENAL [id number] 05/18/2018 20:47:00 018 22:45:00 DIS Emergency MACEY DUENAS APRN [facility] ER BUMP ON SIDE OF NECK [id number] 01/14/2017 05:30:00 017 10:34:00 DIS Inpatient ZAC GUPTA MD [facility] 4TH ALTERED MENTAL STATUS;H EAD CONTUSION X 2;HYPOGLYCE [id number] 05/28/2016 05:25:00 016 13:00:00 DIS Inpatient ZAC GUPTA MD [facility] 4TH ACUTE ON CHRONIC RENAL FAILURE,FEVER,TIA [id number] 08/19/2014 17:49:00 20:48:00 DIS Emergency HOLLI VALDIVIA, CALE Kendrick [facility] ER IRR LAB RESULTS [id number] 06/24/2014 10:22:00 23:59:59 CLS Outpatient OJ MOHR FACC, RICHI VILLASEÑOR CC DS [facility] CARD AFIB [id number] 06/21/2014 11:37:00 23:59:59 CLS Outpatient LINNETTE GOLDSTEIN MD [facility] LAB [id number] 07/12/2013 13:28:00 00:01:00 DIS Outpatient FLAQUITA KELLY [facility] ONC [id number] 06/11/2013 07:33:00 23:59:59 CLS Outpatient LINNETTE GOLDSTEIN MD [facility] RAD [id number] 06/06/2013 10:04:00 23:59:59 CLS Outpatient LINNETTE GOLDSTEIN MD [facility] LAB [id number] 06/18/2020 16:13:00 Document Registration [id number] 06/28/2014 12:43:00 Document Registration [id number] 10/11/2013 00:00:00 Document Registration [id number] 06/20/2012 21:46:00 Document Registration [id number] 05/24/2011 11:36:00 Document Registration [id number] 04/11/2011 18:27:00 Document Registration [id number] 09/20/2017 14:34:40 09/20/2017 23:59:5 9 CLS Outpatient
[2020-06-18 16:37] LABS: NEUTROPHILS % (MANUAL) 46 %
[2020-06-18 16:38] LABS: ANISOCYTOSIS SLIGHT; BAND NEUTROPHILS 0 %; BASOPHILS % (MANUAL) 0 %; EOSINOPHILS % (MANUAL) 8 %; LYMPHOCYTES % (MANUAL) 24 %; MONOCYTES % (MANUAL) 22 %
[2020-06-18] MEDS ORDERED: KCL 10 MEQ TAB (MICRO K) PO ONE (18:00)
--- NOTE | 2020-06-18 18:46 | NUR ---
Contacted son, Matthew, regarding pt report, findings, et care recieved while in this ER. Matthew voices no questions or concerns.
[2020-06-18] MEDS ORDERED: DILT120C82 PO (18:47)
[2020-06-18 18:50] VITALS: BP 108/69
== END 2020-06-18 18:51 | disposition home or self-care (01) ==
LOC: EDUNIT# 15:27 → ER 15:28
DX: I48.91 Unspecified atrial fibrillation (principal); N18.6 End stage renal disease; E11.22 Type 2 diabetes mellitus with diabetic chronic kidney disease; I12.0 Hypertensive chronic kidney disease with stage 5 chronic kidney disease or end stage renal disease; Z99.2 Dependence on renal dialysis; Z82.49 Family history of ischemic heart disease and other diseases of the circulatory system; Z80.9 Family history of malignant neoplasm, unspecified; Z87.891 Personal history of nicotine dependence; Z91.030 Bee allergy status; Z79.82 Long term (current) use of aspirin
CPT/HCPCS: 36415; 71045; 80053; 83735; 83874; 84484; 85007; 85027; 85610; 85730; 93005; 93041

== ENCOUNTER 2020-07-16 10:49 | Emergency (ER) | payer MEDICARE ==
[~2020-07-16] VITALS: Ht 182.8 cm; Wt 81.6 kg
[~2020-07-16 10:49] MED LIST changes: +ASPI-1238 PO; -ASPI-983 PO; +DILT120C82 PO
--- NOTE | 2020-07-16 12:15 | NUR ---
Spoke to pt's son via phone with update on pt. This nurse expressed concern that pt's is in ED with pt. Son reports pt, "will go ape if she is not with him."
[2020-07-16 13:01] LABS: BASOPHILS % (AUTO) 1 % (0-10); EOSINOPHILS # (AUTO) 0.1 10^3/uL (0.0-0.3); EOSINOPHILS % (AUTO) 3 % (0-10); HEMATOCRIT 33 % (40-54); HEMOGLOBIN 10.6 G/DL (13.3-17.7); LYMPHOCYTES # (AUTO) 0.7 X 10^3 (1.0-4.0); LYMPHOCYTES % (AUTO) 23 % (12-44); MEAN CORPUSCULAR HEMOGLOBIN 32 PG (25-34); MEAN CORPUSCULAR HGB CONC 32 G/DL (32-36); MEAN CORPUSCULAR VOLUME 99 FL (80-99); MEAN PLATELET VOLUME 9.8 FL (7.4-10.4); MONOCYTES # (AUTO) 1.3 X 10^3 (0.0-1.0); MONOCYTES % (AUTO) 41 % (0-12); NEUTROPHILS % (AUTO) 31 % (42-75); PLATELET COUNT 160 10^3/uL (130-400)
--- NOTE | 2020-07-16 13:09 | ED Abdominal Pain ---
General Chief Complaint: Abdominal/GI Problems Stated Complaint: NAUSEA ; DIARRHEA Nursing Triage Note: Pt to ED with . reports pt was on way to dialysis when pt stated, "I need to go to the hospital." Pt reports diarrhea since last night. Pt c/o constant R upper quadrant pain. Pt denies nausea or vomiting. Sepsis Screen: No Definite Risk Source of Information: Patient Exam Limitations: No Limitations History of Present Illness Date Seen by Provider: Jul 16, 2020 Time Seen by Provider: 12:44 Initial Comments Here with pain into the right upper quadrant. Did have diarrhea last night. Was supposed to get dialysis today but decided not to go to that until you get checked out at the hospital. He gets dialysis on Tuesday, Tuesday and Tuesday. They do have appointment for him at 10 AM tomorrow C missed today. Denies fever or chills. Has had a cough but that is chronic and long-standing. It may be a little worse currently. Denies fever or chills. Denies COVID contact. Patient is very hard of hearing which makes questioning difficult the significant other at bedside is helping. Timing/Duration: 12 Hours, Changing Over Time Severity/Quality: Mild, Aching Location: RUQ Radiation: No Radiation Activities at Onset: None Modifying Factors: Worsens With Coughing; Improves With Resting Associated Symptoms: No Back Pain, No Chest Pain, No Fever/Chills, No Nausea/Vomiting, No Shortness of Air, No Weakness Allergies and Home Medications Allergies Coded Allergies: bee pollen (Verified Allergy, Unknown, Anaphylaxis, 12/30/19) Home Medications Acetaminophen 650 Mg Tablet.er, 650-1,300 MG PO Q8H PRN for PAIN-MILD, (Reported) Albuterol Sulfate 2.5 Mg/0.5 Ml Vial.neb, 2.5 MG INH Q4H, (Reported) Amiodarone HCl 200 Mg Tablet, 200 MG PO DAILY, (Reported) Amlodipine Besylate 5 Mg Tablet, 5 MG PO DAILY, (Reported) Aspirin 81 Mg Tablet.dr, 81 MG PO DAILY, (Reported) Diltiazem HCl 120 Mg Cap.er.24h, 120 MG PO DAILY Prescribed by: MACEY DUENAS on 06/18/20 1551 Tamsulosin HCl 0.4 Mg Cap, 0.4 MG PO 1800, (Reported) Patient Home Medication List Home Medication List Reviewed: Yes Review of Systems Review of Systems Constitutional: see HPI; No chills, No fever EENTM: No Symptoms Reported Respiratory: Cough; Denies Shortness of Air Cardiovascular: Denies Chest Pain; Edema Gastrointestinal: Abdominal Pain, Diarrhea Genitourinary: No Symptoms Reported Musculoskeletal: no symptoms reported Skin: no symptoms reported Psychiatric/Neurological: See HPI Endocrine: No Symptoms Reported All Other Systems Reviewed Negative Unless Noted: Yes Past Kehexir-Emiege-Yaqiql Hx Past Med/Social Hx: Reviewed Nursing Past Med/Soc Hx Patient Social History Alcohol Use: Denies Use Recreational Drug Use: No Smoking Status: Former Smoker Type Used: Cigarettes Former Smoker, Quit: Dec 29, 1979 2nd Hand Smoke Exposure: No Recent Foreign Travel: No Contact w/Someone Who Travel: No Recent Infectious Disease Expo: No Recent Hopitalizations: Yes Immunizations Up To Date Tetanus Booster (TDap): Less than 5yrs PED Vaccines UTD: No Date of Pneumonia Vaccine: Aug 13, 2018 Date of Influenza Vaccine: Oct 13, 2019 Seasonal Allergies Seasonal Allergies: No Past Medical History Surgeries: Yes (BILATERAL KNEE REPLACEMENTS) Appendectomy, Joint Replacement, Orthopedic Respiratory: No Chronic Bronchitis Currently Using CPAP: No Currently Using BIPAP: No Cardiac: Yes Atrial Fibrillation, High Cholesterol, Hypertension Neurological: No Stroke Reproductive Disorders: No Sexually Transmitted Disease: No HIV/AIDS: No Genitourinary: Yes Renal Failure Gastrointestinal: No Musculoskeletal: No Arthritis Endocrine: No Diabetes, Non-Insulin dep HEENT: Yes Loss of Vision: Denies Hearing Impairment: Hard of Hearing Cancer: No Psychosocial: No Integumentary: No Blood Disorders: No Adverse Reaction/Blood Tranf: No Family Medical History Reviewed Nursing Family Hx (later) Heart Disease, Cancer, Hypertension Physical Exam Vital Signs Vital Signs - First Documented 07/16/20 11:45 Temp 37.8 Pulse 86 Resp 20 B/P (MAP) 125/58 (80) Pulse Ox 94 O2 Delivery Room Air Capillary Refill : Less Than 3 Seconds Height/Weight/BMI Height: 6'2.00" Weight: 200lbs. 0.0oz. 90.755294ez; 24.00 BMI Method:Estimated General Appearance: WD/WN, no apparent distress HEENT: PERRL/EOMI, pharynx normal Neck: full range of motion, supple Respiratory: no accessory muscle use, crackles (right lung base greater than left) Cardiovascular: regular rate, rhythm, no murmur Gastrointestinal: soft, tenderness (upper abdomen right greater than left) Extremities: non-tender, normal inspection Back: normal inspection, no CVA tenderness, no vertebral tenderness Neurologic/Psychiatric: alert, oriented x 3 Skin: normal color, warm/dry (left) Progress/Results/Core Measures Results/Orders Lab Results Laboratory Tests Test 07/16/20 11:55 07/16/20 14:40 Range/Units White Blood Count 3.0 L 4.3-11.0 10^3/uL Red Blood Count 3.33 L 4.35-5.85 10^6/uL Hemoglobin 10.6 L 13.3-17.7 G/DL Hematocrit 33 L 40-54 % Mean Corpuscular Volume 99 80-99 FL Mean Corpuscular Hemoglobin 32 25-34 PG Mean Corpuscular Hemoglobin Concent 32 32-36 G/DL Red Cell Distribution Width 15.3 H 10.0-14.5 % Platelet Count 160 130-400 10^3/uL Mean Platelet Volume 9.8 7.4-10.4 FL Neutrophils (%) (Auto) 31 L 42-75 % Lymphocytes (%) (Auto) 23 12-44 % Monocytes (%) (Auto) 41 H 0-12 % Eosinophils (%) (Auto) 3 0-10 % Basophils (%) (Auto) 1 0-10 % Neutrophils # (Auto) 1.0 L 1.8-7.8 X 10^3 Lymphocytes # (Auto) 0.7 L 1.0-4.0 X 10^3 Monocytes # (Auto) 1.3 H 0.0-1.0 X 10^3 Eosinophils # (Auto) 0.1 0.0-0.3 10^3/uL Basophils # (Auto) 0.0 0.0-0.1 10^3/uL Neutrophils % (Manual) 33 % Lymphocytes % (Manual) 22 % Monocytes % (Manual) 35 % Eosinophils % (Manual) 6 % Basophils % (Manual) 1 % Band Neutrophils 3 % Blood Morphology Comment NORMAL Sodium Level 137 135-145 MMOL/L Potassium Level 3.9 3.6-5.0 MMOL/L Chloride Level 99 98-107 MMOL/L Carbon Dioxide Level 28 21-32 MMOL/L Anion Gap 10 5-14 MMOL/L Blood Urea Nitrogen 38 H 7-18 MG/DL Creatinine 3.04 H 0.60-1.30 MG/DL Estimat Glomerular Filtration Rate 20 BUN/Creatinine Ratio 13 Glucose Level 89 70-105 MG/DL Calcium Level 8.4 L 8.5-10.1 MG/DL Corrected Calcium 9.3 8.5-10.1 MG/DL Total Bilirubin 0.7 0.1-1.0 MG/DL Aspartate Amino Transf (AST/SGOT) 43 H 5-34 U/L Alanine Aminotransferase (ALT/SGPT) 21 0-55 U/L Alkaline Phosphatase 172 H 40-136 U/L Troponin I 0.034 H 0.049 H <0.028 NG/ML C-Reactive Protein High Sensitivity 4.29 H 0.00-0.50 MG/DL B-Type Natriuretic Peptide 461.1 H <100.0 PG/ML Total Protein 6.9 6.4-8.2 GM/DL Albumin 2.9 L 3.2-4.5 GM/DL My Orders Orders - CHAPO JIM MD BNP (07/16/20 12:51) Cbc With Automated Diff (07/16/20 12:51) Comprehensive Metabolic Panel (07/16/20 12:51) Hs C Reactive Protein (07/16/20 12:51) Troponin I (07/16/20 12:51) Chest 1 View, Ap/Pa Only (07/16/20 12:51) Ekg Tracing (07/16/20 12:51) Monitor-Rhythm Ecg Trace Only (07/16/20 12:51) Manual Differential (07/16/20 11:55) Troponin I (07/16/20 14:34) Vital Signs/I&O 07/16/20 11:45 Temp 37.8 Pulse 86 Resp 20 B/P (MAP) 125/58 (80) Pulse Ox 94 O2 Delivery Room Air Blood Pressure Mean: 80 Progress Progress Note : Progress Note Seen and evaluated. IV, labs, chest x-ray and EKG ordered. Monitor patient. 1446: Labs reviewed. Very slight elevation in troponin but otherwise non- concerning findings. Does have fluid on the lungs which is expected given that he needs his dialysis. We will repeat the troponin now and evaluate for rise significance and patient would like to go home afterwards if possible. He does have dialysis appointment tomorrow which I have instructed him that he really needs. He again states that he feels fine currently. He is agreeable to the repeat troponin. Monitor patient. 1559: Repeat troponin noted and it is slightly more than previous although well below the significant level. I did discuss with the patient and family regarding options including transfer to another facility where dialysis is available versus going home including risk and benefits such as worsening and if at home. Patient adamantly states he wants to go home. Is reasonable given his current circumstances but did offer again to transfer of this with a like to do. He again stated he wanted to go home. Discharged home with return precautions. Patient and family verbalize understanding instructions and agreement with plan. He has been free of chest pain or abdominal pain throughout the entire visit. Initial ECG Impression Date: Jul 16, 2020 Initial ECG Impression Time: 12:59 Initial ECG Rate: 80 Initial ECG Rhythm: Normal Sinus Initial ECG Impression: Normal Comment Sinus rhythm with normal axis. No evidence of ST elevation AL. Change from previous of 06/18/20 which was atrial fibrillation. Interpreted by me. Diagnostic Imaging Diagonstic Imaging: Xray Plain Films/CT/US/NM/MRI: chest Comments [facility]. [place], [place] NAME: YVONNE ZHU [facility] REC#: [id number] PT STATUS: REG ER : 1935 PHYSICIAN: CHAPO JIM MD ADMIT DATE: 07/16/20/ER Draft Date of Exam:07/16/20 CHEST 1 VIEW, AP/PA ONLY INDICATION: Cough. TIME OF EXAM: 1:11 PM Correlation is made with prior chest from 06/18/2020. There is a large left pleural effusion, similar to prior exam. Right sided dialysis line has tip overlying the SVC right atrial junction. There is central congestion, similar to prior. No pneumothorax is seen. IMPRESSION: Central congestive changes and large left effusion, stable when compared with examination 1 month earlier. Dictated on workstation # [id number] Dict: 07/16/20 1328 Trans: 07/16/20 1330 CVB [id number] Interpreted by: YUAN NG MD Electronically signed by: Departure Impression Primary Impression: Right upper quadrant pain Additional Impressions: Chest pain Qualified Codes: R07.9 - Chest pain, unspecified End stage renal disease on dialysis Disposition: HOME, SELF-CARE Condition: Stable Departure-Patient Inst. Decision time for Depature: 16:01 Referrals: ZAC GUPTA MD (PCP/Family) Primary Care Physician Patient Instructions: Chest Pain (DC), Severe Abdominal Pain Add. Discharge Instructions: All discharge instructions reviewed with patient and/or family. Voiced understanding. Keep dialysis appointment tomorrow at 10 AM as scheduled. Follow-up with your doctor for recheck and further evaluation in a few days. Return for worse pain, chest pain, breathing problems, weakness, abdominal pain, vomiting or other concerns as needed. CHAPO JIM MD Jul 16, 2020 13:09
[2020-07-16 13:10] LABS: ALBUMIN 2.9 GM/DL (3.2-4.5); BILIRUBIN,TOTAL 0.7 MG/DL (0.1-1.0); CALCIUM 8.4 MG/DL (8.5-10.1); CREATININE SERUM 3.04 MG/DL (0.60-1.30); POTASSIUM 3.9 MMOL/L (3.6-5.0); TOTAL PROTEIN 6.9 GM/DL (6.4-8.2)
--- NOTE | 2020-07-16 13:30 | Diagnostic Imaging Report ---
INDICATION: Cough. TIME OF EXAM: 1:11 PM Correlation is made with prior chest from 06/18/2020. There is a large left pleural effusion, similar to prior exam. Right sided dialysis line has tip overlying the SVC right atrial junction. There is central congestion, similar to prior. No pneumothorax is seen. IMPRESSION: Central congestive changes and large left effusion, stable when compared with examination 1 month earlier. Dictated by: Dictated on workstation # [id number]
[2020-07-16 13:37] LABS: BAND NEUTROPHILS 3 %; BASOPHILS % (MANUAL) 1 %; EOSINOPHILS % (MANUAL) 6 %; LYMPHOCYTES % (MANUAL) 22 %; MONOCYTES % (MANUAL) 35 %; NEUTROPHILS % (MANUAL) 33 %; RBC MORPH NORMAL
--- NOTE | 2020-07-16 14:47 | NUR ---
Spoke with son regarding plan of care.
[2020-07-16 16:25] VITALS: BP 115/44
== END 2020-07-16 16:20 | disposition home or self-care (01) ==
LOC: EDUNIT# 10:49 → ER 10:51
DX: R10.11 Right upper quadrant pain (principal); R07.9 Chest pain, unspecified; I12.0 Hypertensive chronic kidney disease with stage 5 chronic kidney disease or end stage renal disease; I48.91 Unspecified atrial fibrillation; Z99.2 Dependence on renal dialysis; Z82.49 Family history of ischemic heart disease and other diseases of the circulatory system; Z80.9 Family history of malignant neoplasm, unspecified; Z87.891 Personal history of nicotine dependence; Z91.030 Bee allergy status; Z79.82 Long term (current) use of aspirin
CPT/HCPCS: 36415; 71045; 80053; 83880; 84484; 85007; 85027; 86141; 93005; 93041

== ENCOUNTER 2020-08-08 14:13 | Emergency (ER) | payer MEDICARE ==
[~2020-08-08] VITALS: Ht 182.8 cm; Wt 77.0 kg
--- NOTE | 2020-08-08 14:41 | ED Respiratory ---
General Chief Complaint: Respiratory Problems Nursing Triage Note: pt brought in by from diaylsis with complaint of low oxygen. pt was recently in the hospital for pleural effusion. Source: patient Exam Limitations: no limitations History of Present Illness Date Seen by Provider: Aug 08, 2020 Time Seen by Provider: 14:39 Initial Comments To ER by private vehicle from dialysis with reports of low oxygen at the dialysis center. He received all but 30 minutes of his dialysis treatment. He was recently in the hospital for left-sided pleural effusion. Patient denies any shortness of breath. Upon arrival to the oxygen saturation is 95-100% on room air. Timing/Duration: just prior to arrival Severity: moderate Allergies and Home Medications Allergies Coded Allergies: bee pollen (Verified Allergy, Unknown, Anaphylaxis, 12/30/19) Home Medications Acetaminophen 650 Mg Tablet.er, 650-1,300 MG PO Q8H PRN for PAIN-MILD, (Reported) Albuterol Sulfate 2.5 Mg/0.5 Ml Vial.neb, 2.5 MG INH Q4H, (Reported) Amiodarone HCl 200 Mg Tablet, 200 MG PO DAILY, (Reported) Amlodipine Besylate 5 Mg Tablet, 5 MG PO DAILY, (Reported) Aspirin 81 Mg Tablet.dr, 81 MG PO DAILY, (Reported) Diltiazem HCl 120 Mg Cap.er.24h, 120 MG PO DAILY Prescribed by: MACEY DUENAS on 06/18/20 1847 Tamsulosin HCl 0.4 Mg Cap, 0.4 MG PO 1800, (Reported) Patient Home Medication List Home Medication List Reviewed: Yes Review of Systems Review of Systems Constitutional: see HPI EENTM: see HPI Respiratory: no symptoms reported Cardiovascular: no symptoms reported Genitourinary: no symptoms reported Musculoskeletal: no symptoms reported Skin: no symptoms reported Psychiatric/Neurological: No Symptoms Reported Hematologic/Lymphatic: No Symptoms Reported Past Hozkych-Mqlztx-Sixqta Hx Patient Social History Type Used: Cigarettes Former Smoker, Quit: Dec 29, 1979 2nd Hand Smoke Exposure: No Recent Foreign Travel: No Contact w/Someone Who Travel: No Recent Infectious Disease Expo: No Recent Hopitalizations: Yes Immunizations Up To Date Tetanus Booster (TDap): Less than 5yrs PED Vaccines UTD: No Date of Pneumonia Vaccine: Aug 13, 2018 Date of Influenza Vaccine: Oct 13, 2019 Seasonal Allergies Seasonal Allergies: No Past Medical History Surgeries: Yes (BILATERAL KNEE REPLACEMENTS) Appendectomy, Joint Replacement, Orthopedic Respiratory: No Chronic Bronchitis Currently Using CPAP: No Currently Using BIPAP: No Cardiac: Yes Atrial Fibrillation, High Cholesterol, Hypertension Neurological: No Stroke Reproductive Disorders: No Sexually Transmitted Disease: No HIV/AIDS: No Genitourinary: Yes Renal Failure Gastrointestinal: No Musculoskeletal: No Arthritis Endocrine: No Diabetes, Non-Insulin dep HEENT: Yes Loss of Vision: Denies Hearing Impairment: Hard of Hearing Cancer: No Psychosocial: No Integumentary: No Blood Disorders: No Adverse Reaction/Blood Tranf: No Family Medical History Heart Disease, Cancer, Hypertension Physical Exam Vital Signs - First Documented 08/08/20 14:14 Temp 37.6 Pulse 96 Resp 32 B/P (MAP) 119/83 (95) Pulse Ox 100 O2 Delivery Room Air Capillary Refill : Less Than 3 Seconds Height: 6'2.00" Weight: 200lbs. 0.0oz. 90.372587pv; 23.00 BMI Method:Estimated General Appearance: WD/WN, no apparent distress, thin Eyes: Bilateral Eye Normal Inspection, Bilateral Eye PERRL, Bilateral Eye EOMI Neck: non-tender, full range of motion Respiratory: no respiratory distress, no accessory muscle use, other (diminished left side) Gastrointestinal: normal bowel sounds, non tender, soft Extremities: normal range of motion, non-tender Neurologic/Psychiatric: alert, normal mood/affect, oriented x 3 Skin: normal color, warm/dry Progress/Results/Core Measures Suspected Sepsis Recent Fever Within 48 Hours: No Infection Criteria Present: None New/Unexplained Altered Menta: No Sepsis Screen: No Definite Risk SIRS Temperature: Pulse: 96 Respiratory Rate: 32 Laboratory Tests 08/08/20 14:35: White Blood Count 6.0 Blood Pressure 119 /83 Mean: 95 Laboratory Tests 08/08/20 14:35: Creatinine 1.56H, Platelet Count 143, Total Bilirubin 0.7 Results/Orders Lab Results Laboratory Tests Test 08/08/20 14:35 Range/Units White Blood Count 6.0 4.3-11.0 10^3/uL Red Blood Count 3.30 L 4.30-5.52 10^6/uL Hemoglobin 10.5 L 13.3-17.7 g/dL Hematocrit 33 L 40-54 % Mean Corpuscular Volume 99 80-99 fL Mean Corpuscular Hemoglobin 32 25-34 pg Mean Corpuscular Hemoglobin Concent 32 32-36 g/dL Red Cell Distribution Width 14.6 H 10.0-14.5 % Platelet Count 143 130-400 10^3/uL Mean Platelet Volume 9.4 9.0-12.2 fL Immature Granulocyte % (Auto) 1 % Neutrophils (%) (Auto) 56 42-75 % Lymphocytes (%) (Auto) 18 12-44 % Monocytes (%) (Auto) 24 H 0-12 % Eosinophils (%) (Auto) 1 0-10 % Basophils (%) (Auto) 1 0-10 % Neutrophils # (Auto) 3.3 1.8-7.8 10^3/uL Lymphocytes # (Auto) 1.1 1.0-4.0 10^3/uL Monocytes # (Auto) 1.4 H 0.0-1.0 10^3/uL Eosinophils # (Auto) 0.0 0.0-0.3 10^3/uL Basophils # (Auto) 0.1 0.0-0.1 10^3/uL Immature Granulocyte # (Auto) 0.1 0.0-0.1 10^3/uL Neutrophils % (Manual) 65 % Lymphocytes % (Manual) 16 % Monocytes % (Manual) 18 % Eosinophils % (Manual) 1 % Basophils % (Manual) 0 % Band Neutrophils 0 % Blood Morphology Comment NORMAL Sodium Level 135 135-145 MMOL/L Potassium Level 3.4 L 3.6-5.0 MMOL/L Chloride Level 96 L 98-107 MMOL/L Carbon Dioxide Level 31 21-32 MMOL/L Anion Gap 8 5-14 MMOL/L Blood Urea Nitrogen 13 7-18 MG/DL Creatinine 1.56 H 0.60-1.30 MG/DL Estimat Glomerular Filtration Rate 43 BUN/Creatinine Ratio 8 Glucose Level 69 L 70-105 MG/DL Calcium Level 7.7 L 8.5-10.1 MG/DL Corrected Calcium 8.7 8.5-10.1 MG/DL Total Bilirubin 0.7 0.1-1.0 MG/DL Aspartate Amino Transf (AST/SGOT) 37 H 5-34 U/L Alanine Aminotransferase (ALT/SGPT) 16 0-55 U/L Alkaline Phosphatase 152 H 40-136 U/L Total Protein 6.8 6.4-8.2 GM/DL Albumin 2.7 L 3.2-4.5 GM/DL My Orders Orders - MACEY DUENAS APRN Cbc With Automated Diff (08/08/20 14:18) Comprehensive Metabolic Panel (08/08/20 14:18) Chest 1 View, Ap/Pa Only (08/08/20 14:18) Ekg Tracing (08/08/20 14:18) Ed Iv/Invasive Line Start (08/08/20 14:18) Manual Differential (08/08/20 14:35) Vital Signs/I&O 08/08/20 14:14 Temp 37.6 Pulse 96 Resp 32 B/P (MAP) 119/83 (95) Pulse Ox 100 O2 Delivery Room Air Capillary Refill : Less Than 3 Seconds Blood Pressure Mean: 95 Diagnostic Imaging Diagonstic Imaging: Xray Comments NAME: YVONNE ZHU [facility] REC#: [id number] PT STATUS: REG ER : 1935 PHYSICIAN: MACEY DUENAS APRN ADMIT DATE: 08/08/20/ER Signed Date of Exam:08/08/20 CHEST 1 VIEW, AP/PA ONLY INDICATION: Dyspnea. TIME OF EXAM: 2:43 p.m. COMPARISON: Correlation made with prior chest from 07/16/2020. FINDINGS: Heart size normal. Right side dialysis line has tip overlying the SVC. There has been significant reduction in left-sided pleural effusion which is now small. There is some residual atelectasis in the left base. Right lung is clear. No pneumothorax is seen. IMPRESSION: Significant reduction in left-sided pleural effusion when compared with exam from 07/16/2020. There is residual left basilar infiltrate or atelectasis. Dictated by: Dictated on workstation # [id number] Dict: 08/08/20 1503 Trans: 08/08/20 1509 [facility] [id number] Interpreted by: YUAN NG MD Electronically signed by: YUAN NG MD 08/08/20 1509 Departure Communication (Admissions) 5150-oxygen saturation remains 95-100%. Impression Primary Impression: Transient hypoxia Disposition: 01 HOME, SELF-CARE Condition: Stable Departure-Patient Inst. Decision time for Depature: 15:51 Referrals: ZAC GUPTA MD (PCP/Family) Primary Care Physician Patient Instructions: NO INSTRUCTIONS GIVEN Add. Discharge Instructions: All discharge instructions reviewed with patient and/or family. Voiced understnidia jackson. MACEY DUENAS APRN Aug 08, 2020 14:41
[2020-08-08 14:43] LABS: BASOPHILS # (AUTO) 0.1 10^3/uL (0.0-0.1); BASOPHILS % (AUTO) 1 % (0-10); EOSINOPHILS % (AUTO) 1 % (0-10); HEMATOCRIT 33 % (40-54); HEMOGLOBIN 10.5 g/dL (13.3-17.7); LYMPHOCYTES # (AUTO) 1.1 10^3/uL (1.0-4.0); LYMPHOCYTES % (AUTO) 18 % (12-44); MEAN CORPUSCULAR HEMOGLOBIN 32 pg (25-34); MEAN CORPUSCULAR HGB CONC 32 g/dL (32-36); MEAN CORPUSCULAR VOLUME 99 fL (80-99); MEAN PLATELET VOLUME 9.4 fL (9.0-12.2); MONOCYTES # (AUTO) 1.4 10^3/uL (0.0-1.0); MONOCYTES % (AUTO) 24 % (0-12); NEUTROPHILS # (AUTO) 3.3 10^3/uL (1.8-7.8); NEUTROPHILS % (AUTO) 56 % (42-75); PLATELET COUNT 143 10^3/uL (130-400)
[2020-08-08 14:59] LABS: ALBUMIN 2.7 GM/DL (3.2-4.5); BAND NEUTROPHILS 0 %; BASOPHILS % (MANUAL) 0 %; EOSINOPHILS % (MANUAL) 1 %; LYMPHOCYTES % (MANUAL) 16 %; MONOCYTES % (MANUAL) 18 %; NEUTROPHILS % (MANUAL) 65 %; POTASSIUM 3.4 MMOL/L (3.6-5.0); RBC MORPH NORMAL
[2020-08-08 15:01] LABS: CALCIUM 7.7 MG/DL (8.5-10.1)
[2020-08-08 15:02] LABS: TOTAL PROTEIN 6.8 GM/DL (6.4-8.2)
[2020-08-08 15:04] LABS: BILIRUBIN,TOTAL 0.7 MG/DL (0.1-1.0)
[2020-08-08 15:05] LABS: CREATININE SERUM 1.56 MG/DL (0.60-1.30)
--- NOTE | 2020-08-08 15:07 | Diagnostic Imaging Report ---
INDICATION: Dyspnea. TIME OF EXAM: 2:43 p.m. COMPARISON: Correlation made with prior chest from 07/16/2020. FINDINGS: Heart size normal. Right side dialysis line has tip overlying the SVC. There has been significant reduction in left-sided pleural effusion which is now small. There is some residual atelectasis in the left base. Right lung is clear. No pneumothorax is seen. IMPRESSION: Significant reduction in left-sided pleural effusion when compared with exam from 07/16/2020. There is residual left basilar infiltrate or atelectasis. Dictated by: Dictated on workstation # [id number]
[2020-08-08 16:04] VITALS: BP 115/65
== END 2020-08-08 16:04 | disposition home or self-care (01) ==
LOC: EDUNIT# 14:13 → ER 14:14
DX: R09.02 Hypoxemia (principal); I48.91 Unspecified atrial fibrillation; I10 Essential (primary) hypertension; Z82.49 Family history of ischemic heart disease and other diseases of the circulatory system; Z80.9 Family history of malignant neoplasm, unspecified; Z87.891 Personal history of nicotine dependence; Z91.030 Bee allergy status; Z79.82 Long term (current) use of aspirin
CPT/HCPCS: 36415; 71045; 80053; 85007; 85027; 93005